=== PATIENT | male | born 1960 | race Caucasian/White ===

== ENCOUNTER → 2018-02-19 08:23 | Outpatient (CLI) | payer MEDICARE, MEDICAID, SELFPAY ==
--- NOTE | 2018-02-19 08:32 | US_ITS ---
US liver HISTORY: ITS.REASON: CIRRHOSIS ORDERING PHYSICIAN: Berto Jones PATIENT AGE: 57 years COMPARISON: 08/14/2017 FINDINGS: PANCREAS:Unremarkable. No obvious mass or abnormal fluid collection. No ductal dilatation LIVER:There is coarse echogenicity of the liver with decreased through transmission of sound consistent with fatty liver. No focal lesions are demonstrated. There is appropriate directional blood flow within a nondilated portal vein. Common bile duct is normal at 6 mm. Portal vein measures 8 mm RIGHT KIDNEY:Unremarkable. Normal size and echogenicity. No hydronephrosis Prior cholecystectomy without ductal dilatation. IMPRESSION: 1. Prior cholecystectomy without ductal dilatation. 2. No change diffuse fatty liver infiltration
== END ==
PROVIDERS: Family Provider Family Medicine; PCP Family Medicine; Visit Provider Internal Medicine
DX: K74.60 Unspecified cirrhosis of liver (principal)
CPT/HCPCS: 76705

== ENCOUNTER 2018-03-27 10:24 | Emergency (ER) | payer MEDICARE, MEDICAID, SELFPAY ==
[2018-03-27 10:27] VITALS: BP 151/85; PULSE 78; RESP 20; TEMP 37.8; O2SAT 94; BMI 38.0
[2018-03-27 10:40] VITALS: BP 151/85; PULSE 78; RESP 20; TEMP 37.7; O2SAT 94; BMI 38.0
--- NOTE | 2018-03-27 10:52 | HMH.EDUTC ---
[facility] [place] Disposition Clinical Impression: Dental abscess, Chronic dental caries extending to pulp, Non-alcoholic cirrhosis, Stage 2 chronic kidney disease, Anxiety Fever Qualifiers: Fever type: unspecified Qualified Code(s): R50.9 - Fever, unspecified Disposition: Home, Self-Care Condition on Discharge: Good Instructions: DI for Tooth Abscess, DI for Anxiety -- Adult, DI for Fever (Symptom) -- Adult Additional Instructions: Pt's neighbor was with him. Reports also a hx of Short term memory loss. All directions written and rvwd with both neighbor and pt multiple times between myself twice and also the estate planning attorney. Both pt and neighbor state a positive understanding with all questions answered. Plans to brain picker antibiotic then call Dr. Alicea's office. Start amoxicillin immediately, today. Take twice a day x 10 days Oral salt water rinses Dental balls as needed Call primary care TODAY and schedule follow up appointment to discuss dental phobia. Once that is addressed he will refer you to appropriate office. Understand that LOTS of people have dental phobias. Monitor temp. Cool compresses. Tepid baths. Follow up if getting higher or not improved with starting antibiotics. You have to use caution with both tylenol and motrin due to your past medical history. Prescriptions: Amoxicillin [Amoxicillin 875MG Tab] 875 mg PO Q12H #20 tab Referrals: López Alicea [Primary Care Provider] - (Call today and schedule follow up with primary care first due to severe dental phobia.) Time of Disposition: 11:07 Medical Decision Making - Patricio Inquiry Pt receiving controlled substance: No Vital Signs: 03/27/18 10:27 03/27/18 10:40 Temperature 100.0 F H 100 F H Temperature Source Oral Oral Pulse Rate [Left Radial] 78 78 Respiratory Rate 20 20 Blood Pressure [Right Arm] 151/85 151/85 Blood Pressure Mean [Right Arm] 107 107 Blood Pressure Source [Right Arm] Automatic Cuff Automatic Cuff Blood Pressure Position [Right Arm] Sitting Sitting 02 Sat by Pulse Oximetry 94 L 94 L Oxygen Delivery Method Room Air Orders (Tests/Meds): ED MEDICATIONS Discontinued Medications Generic Name Dose Route Start Last Admin Trade Name Freq PRN Reason Stop Dose Admin Benzocaine/Butamben/Tetracaine HCl 1 gm 03/27/18 11:10 Cetacaine [place] TP 03/27/18 11:11 ONCE ONE Lidocaine HCl 15 ml 03/27/18 11:10 Lidocaine 2% Viscous Solution 15ml Udc PO 03/27/18 11:11 ONCE ONE - Physician Consults Physician Consulted: Dr. López Alicea @ [facility] Time: 10:54 Reason -: Pt condition Comment/Response: Discussed HPI, exam (including orally but also anxiety), Dr. Shi's eval and recommendations and Dr. Alicea was already familiar with PMhx we discussed. He prefers just amoxicillin 875mg BID due to PMHx and he agrees to see him in followup to get anxiety under control then refer to most likely, oral surgeon. Would like pt to call his office today for an appointment. Discussed w/ Sandor, PHD at [facility] and he agrees, only amoxicillin initially with close follow up. [facility] [place] HPI - General Stated complaint: jaw swollen, high blood pressure Time Seen by Provider: 03/27/18 10:45 Mode of Arrival: Family Vehicle Limitations: No Limitations Description of Symptoms (Recalled from Triage Doc. by RN): c/o right sided facial swelling and fever since this am HEENT Symptoms (Recalled from RN notes): Yes Resp Symptoms (Recalled from RN notes): No Skin Symptoms (Recalled from RN notes): No MS Symptoms (Recalled from RN notes): No Functional Status (Recalled from RN notes): n/a - History of Present Illness Provider Complaint: Pt sent from ER Triage after being seen already by ER MD, Dr. Shi, due to cost. Dr. Shi called me. Dx dental abscess w/ severe dental phobia. He directed me to prescribe clindamycin 300mg QID and amoxicillin 875mg BID both x 10 days with referral to [facility]
--- NOTE | 2018-03-27 10:58 | ED_ITS ---
[facility] [place] Disposition Clinical Impression: Dental abscess, Chronic dental caries extending to pulp, Non-alcoholic cirrhosis, Stage 2 chronic kidney disease, Anxiety Fever Qualifiers: Fever type: unspecified Qualified Code(s): R50.9 - Fever, unspecified Disposition: Home, Self-Care Condition on Discharge: Good Instructions: DI for Tooth Abscess, DI for Anxiety -- Adult, DI for Fever ( Symptom) -- Adult Additional Instructions: Pt's neighbor was with him. Reports also a hx of Short term memory loss. All directions written and rvwd with both neighbor and pt multiple times between myself twice and also the detective bureau chief. Both pt and neighbor state a positive understanding with all questions answered. Plans to pick out hand antibiotic then call Dr. Alicea's office. Start amoxicillin immediately, today. Take twice a day x 10 days Oral salt water rinses Dental balls as needed Call primary care TODAY and schedule follow up appointment to discuss dental phobia. Once that is addressed he will refer you to appropriate office. Understand that LOTS of people have dental phobias. Monitor temp. Cool compresses. Tepid baths. Follow up if getting higher or not improved with starting antibiotics. You have to use caution with both tylenol and motrin due to your past medical history. Prescriptions: Amoxicillin [Amoxicillin 875MG Tab] 875 mg PO Q12H #20 tab Referrals: López Alicea [Primary Care Provider] - (Call today and schedule follow up with primary care first due to severe dental phobia.) Time of Disposition: 11:07 Medical Decision Making - Patricio Inquiry Pt receiving controlled substance: No Vital Signs: 03/27/18 10:27 03/27/18 10:40 Temperature 100.0 F H 100 F H Temperature Source Oral Oral Pulse Rate [Left Radial] 78 78 Respiratory Rate 20 20 Blood Pressure [Right Arm] 151/85 151/85 Blood Pressure Mean [Right Arm] 107 107 Blood Pressure Source [Right Arm] Automatic Cuff Automatic Cuff Blood Pressure Position [Right Arm] Sitting Sitting 02 Sat by Pulse Oximetry 94 L 94 L Oxygen Delivery Method Room Air Orders (Tests/Meds): ED MEDICATIONS Discontinued Medications Generic Name Dose Route Start Last Admin Trade Name Freq PRN Reason Stop Dose Admin Benzocaine/Butamben/Tetracaine HCl 1 gm 03/27/18 11:10 Cetacaine [place] TP 03/27/18 11:11 ONCE ONE Lidocaine HCl 15 ml 03/27/18 11:10 Lidocaine 2% Viscous Solution 15ml Udc PO 03/27/18 11:11 ONCE ONE - Physician Consults Physician Consulted: Dr. López Alicea @ [facility] Time: 10:54 Reason -: Pt condition Comment/Response: Discussed HPI, exam (including orally but also anxiety), Dr. Shi's eval and recommendations and Dr. Alicea was already familiar with PMhx we discussed. He prefers just amoxicillin 875mg BID due to PMHx and he agrees to see him in followup to get anxiety under control then refer to most likely, oral surgeon. Would like pt to call his office today for an appointment. Discussed w/ Sandor, PHD at [facility] and he agrees, only amoxicillin initially with close follow up. [facility] [place] HPI - General Stated complaint: jaw swollen, high blood pressure Time Seen by Provider: 03/27/18 10:45 Mode of Arrival: Family Vehicle Limitations: No Limitations Description of Symptoms (Recalled fr
[2018-03-27 11:20] VITALS: BP 151/85; PULSE 78; RESP 20; TEMP 37.7; O2SAT 94
== END 2018-03-27 11:21 | disposition home or self-care (01) ==
PROVIDERS: Emergency Provider Nurse Practitioner Family; Family Provider Family Medicine; PCP Family Medicine
DX: K04.7 Periapical abscess without sinus (principal); K02.9 Dental caries, unspecified; K74.60 Unspecified cirrhosis of liver; N18.2 Chronic kidney disease, stage 2 (mild); I10 Essential (primary) hypertension; R50.9 Fever, unspecified; F41.9 Anxiety disorder, unspecified
CPT/HCPCS: 99201

== ENCOUNTER → 2018-04-12 10:41 | Outpatient (POV) | payer MEDICARE, MEDICAID, SELFPAY | PROVIDERS: Visit Provider Dentist | DX: Z00.00 Encounter for general adult medical examination without abnormal findings (principal) ==

== ENCOUNTER → 2018-05-03 12:39 | Outpatient (CLI) | payer MEDICARE, MEDICAID, SELFPAY ==
[2018-05-03 12:45] LABS: Microscopic, Urine URINE MICROSCOPIC (MICROSCOPIC)
[2018-05-03 13:02] LABS: Basophils % 0.6 % (0.1-2.0); Eosinophils # 0.1 K/mm3 (0.0-0.4); Eosinophils % 1.9 % (0.1-12.0); Hematocrit 43.7 % (42.0-52.0); Hemoglobin 14.1 g/dL (14.1-18.0); Lymphocytes # 1.2 K/mm3 (0.7-4.5); Lymphocytes % 21.2 K/mm3 (10-50); Mean Corpuscular HGB Conc 32.2 g/dL (31.8-35.4); Mean Corpuscular Hemoglobin 29.1 pg (27.0-31.2); Mean Corpuscular Volume 90.3 fl (80-94); Mean Platelet Volume 8.5 fl (7.4-10.4); Monocytes # 0.3 K/mm3 (0.1-1.0); Monocytes % 5.1 % (1.7-9.3); Neutrophils % 71.3 % (37.0-80.0); Platelet Count 130 K/mm3 (142-424); Red Blood Count 4.83 M/mm3 (4.60-6.20); Red Cell Distribution Width 14.4 % (11.5-17.5); White Blood Count 5.7 K/mm3 (4.8-10.8)
[2018-05-03 13:23] LABS: Appearance,Urine CLEAR (Clear); Bilirubin,Urine Negative (Negative); Blood, Urine TRACE-L (Negative); Color,Urine YELLOW (Yellow); Glucose,Urine (UA) Negative (Negative); Ketones,Urine Negative (Negative); Leukocyte Esterase,Urine Negative (Negative); Nitrate,Urine Negative (Negative); Protein,Urine Negative (Negative); Specific Gravity, Urine <= 1.005 (1.005-1.030); Urobilinogen,Urine 0.2 EU/dl (0.2)
[2018-05-03 13:42] LABS: WBC,Urine Occasional #/hpf (0-3)
[2018-05-03 13:43] LABS: Bacteria,Urine Trace /lpf
[2018-05-03 14:01] LABS: Creatinine,Urine Random 142 mg/dL (20-320); Total Protein,Urine Random 17.3 mg/dL (0.0-11.9)
[2018-05-03 14:35] LABS: Albumin Level 3.5 gm/dL (3.4-5.0); Anion Gap 6.8 mEq/L (5-15); Blood Urea Nitrogen 13 mg/dL (7-18); Calcium 8.8 mg/dL (8.5-10.1); Carbon Dioxide 31 mmol/L (21.0-32.0); Chloride 102 mmol/L (98-107); Creatinine,Serum 1.22 mg/dL (0.70-1.30); Estimated Glomerular Filt Rate 61 ml/min (>60); GFR (African American) 74 ML/MIN (>60); Glucose 104 mg/dL (74-106); Phosphorous 3.1 mg/dL (2.4-4.9); Potassium 4.8 mmoL/L (3.5-5.1); Sodium 135 mmol/L (136-145)
[2018-05-04 18:17] LABS: Parathyroid Hormone Intact 87 pg/mL (15-65); Vitamin D 25 Hydroxy 29.3 ng/mL (30.0-100.0)
== END ==
PROVIDERS: Visit Provider Hospitalist
DX: N18.2 Chronic kidney disease, stage 2 (mild) (principal)
CPT/HCPCS: 36415; 80069; 81001; 82570; 82652; 83970; 84155; 85025

== ENCOUNTER → 2018-08-06 11:08 | Outpatient (CLI) | payer MEDICARE, MEDICAID, SELFPAY ==
[2018-08-06 11:48] LABS: Basophils % 0.4 % (0.1-2.0); Eosinophils # 0.1 K/mm3 (0.0-0.4); Eosinophils % 2.1 % (0.1-12.0); Hematocrit 44.5 % (42.0-52.0); Hemoglobin 13.7 g/dL (14.1-18.0); Lymphocytes # 0.8 K/mm3 (0.7-4.5); Lymphocytes % 19.1 K/mm3 (10-50); Mean Corpuscular HGB Conc 30.7 g/dL (31.8-35.4); Mean Corpuscular Hemoglobin 28.6 pg (27.0-31.2); Mean Corpuscular Volume 92.9 fl (80-94); Mean Platelet Volume 8.4 fl (7.4-10.4); Monocytes # 0.2 K/mm3 (0.1-1.0); Monocytes % 4.3 % (1.7-9.3); Neutrophils # 3.1 K/mm3 (1.8-7.8); Neutrophils % 74.1 % (37.0-80.0); Platelet Count 96 K/mm3 (142-424); Red Blood Count 4.79 M/mm3 (4.60-6.20); Red Cell Distribution Width 14.7 % (11.5-17.5); White Blood Count 4.2 K/mm3 (4.8-10.8)
[2018-08-06 11:53] LABS: INR 1.11 (0.9-1.1); Prothrombin Time 11.4 seconds (9.4-11.8)
[2018-08-06 14:52] LABS: Alanine Aminotransferase 28 U/L (12-78); Albumin Level 3.3 gm/dL (3.4-5.0); Albumin/Globulin Ratio 0.7 (1.1-1.8); Alkaline Phosphatase 130 U/L (46-116); Anion Gap 11.1 mEq/L (5-15); Aspartate Amino Transferase 39 U/L (15-37); Bilirubin,Total 0.7 mg/dL (0.2-1.0); Blood Urea Nitrogen 16 mg/dL (7-18); Carbon Dioxide 30 mmol/L (21.0-32.0); Chloride 101 mmol/L (98-107); Creatinine,Serum 1.21 mg/dL (0.70-1.30); Estimated Glomerular Filt Rate 62 ml/min (>60); GFR (African American) 75 ML/MIN (>60); Globulin 4.5 gm/dl (1.3-3.2); Glucose 105 mg/dL (74-106); Potassium 4.1 mmoL/L (3.5-5.1); Sodium 138 mmol/L (136-145); Total Protein,Serum 7.8 gm/dL (6.4-8.2)
[2018-08-08 12:36] LABS: AFP, Tumor Marker 6.3 ng/mL (0.0-8.3)
== END ==
PROVIDERS: PCP Family Medicine; Visit Provider Nurse Practitioner
DX: K74.60 Unspecified cirrhosis of liver (principal)
CPT/HCPCS: 36415; 80053; 82105; 85025; 85610

== ENCOUNTER → 2018-10-08 07:36 | Outpatient (CLI) | payer MEDICARE, MEDICAID, SELFPAY ==
--- NOTE | 2018-10-08 08:00 | US_ITS ---
US liver HISTORY: ] Quadrant pain. ITS.REASON: CIRRHOSIS 4 years ORDERING PHYSICIAN: Yumiko Richard PATIENT AGE: 57 years FINDINGS: PANCREAS:Unremarkable. No obvious mass or abnormal fluid collection. No ductal dilatation LIVER:There is coarse echogenicity of the liver with decreased throughtransmission.. Appearance compatible with cirrhosis. No focal lesions. Portal vein normal caliber. Normal direction flow. Portal vein 8.5 mm. Common duct normal diameter measuring less than 5 mm at hilum of liver. No ascites evident. RIGHT KIDNEY. No hydronephrosis nor mass. .. Right kidney Normal size 11.2 cm length. Borderline cortical thinning no fluid at Morison pouch. . Gallbladder-surgically removed Prior cholecystectomy without ductal dilatation. IMPRESSION: 1. Coarse echogenicity throughout liver compatible with history of cirrhosis . No focal lesions at liver.. Portal vein normal caliber and normal direction flow. 2. Common duct normal. Previous cholecystectomy. With no ductal dilatation
== END ==
PROVIDERS: PCP Family Medicine; Visit Provider Nurse Practitioner
DX: K74.60 Unspecified cirrhosis of liver (principal)
CPT/HCPCS: 76705

== ENCOUNTER → 2018-10-16 12:52 | Outpatient (CLI) | payer MEDICARE, MEDICAID, SELFPAY ==
[2018-10-16 12:59] LABS: Microscopic, Urine URINE MICROSCOPIC (MICROSCOPIC)
[2018-10-16 13:36] LABS: Appearance,Urine CLEAR (Clear); Bilirubin,Urine Negative (Negative); Blood, Urine TRACE-I (Negative); Color,Urine YELLOW (Yellow); Glucose,Urine (UA) Negative (Negative); Ketones,Urine Negative (Negative); Leukocyte Esterase,Urine Negative (Negative); Nitrate,Urine Negative (Negative); Protein,Urine Negative (Negative); Specific Gravity, Urine 1.015 (1.005-1.030); Urobilinogen,Urine 0.2 EU/dl (0.2)
[2018-10-16 13:56] LABS: Bacteria,Urine 1+ /lpf
[2018-10-16 14:33] LABS: Albumin Level 3.3 gm/dL (3.4-5.0); Blood Urea Nitrogen 11 mg/dL (7-18); Calcium 8.6 mg/dL (8.5-10.1); Carbon Dioxide 31 mmol/L (21.0-32.0); Chloride 101 mmol/L (98-107); Creatinine,Serum 1.26 mg/dL (0.70-1.30); Estimated Glomerular Filt Rate 59 ml/min (>60); GFR (African American) 72 ML/MIN (>60); Glucose 96 mg/dL (74-106); Phosphorous 2.8 mg/dL (2.4-4.9); Sodium 139 mmol/L (136-145); Uric Acid 4.7 mg/dL (2.6-7.2)
[2018-10-16 15:09] LABS: Basophils % 0.2 % (0.1-2.0); Eosinophils # 0.1 K/mm3 (0.0-0.4); Eosinophils % 2.2 % (0.1-12.0); Hematocrit 46.8 % (42.0-52.0); Hemoglobin 14.6 g/dL (14.1-18.0); Lymphocytes % 22.9 % (10-50); Mean Corpuscular HGB Conc 31.3 g/dL (31.8-35.4); Mean Corpuscular Hemoglobin 29.1 pg (27.0-31.2); Mean Corpuscular Volume 92.8 fl (80-94); Mean Platelet Volume 8.5 fl (7.4-10.4); Monocytes # 0.3 K/mm3 (0.1-1.0); Monocytes % 6.3 % (1.7-9.3); Neutrophils # 3.1 K/mm3 (1.8-7.8); Neutrophils % 68.3 % (37.0-80.0); Platelet Count 89 K/mm3 (142-424); Red Blood Count 5.04 M/mm3 (4.60-6.20); Red Cell Distribution Width 14.9 % (11.5-17.5); White Blood Count 4.5 K/mm3 (4.8-10.8)
== END ==
PROVIDERS: Visit Provider Internal Medicine Nephrology
DX: N18.2 Chronic kidney disease, stage 2 (mild) (principal)
CPT/HCPCS: 36415; 80069; 81001; 84550; 85025

== ENCOUNTER → 2019-03-11 10:16 | Outpatient (CLI) | payer MEDICARE, MEDICAID, SELFPAY ==
[2019-03-11 10:43] LABS: Basophils % 0.6 % (0.1-2.0); Eosinophils # 0.1 K/mm3 (0.0-0.4); Eosinophils % 1.9 % (0.1-12.0); Hematocrit 46.1 % (42.0-52.0); Hemoglobin 15.3 g/dL (14.1-18.0); Lymphocytes # 1.2 K/mm3 (0.7-4.5); Mean Corpuscular HGB Conc 33.1 g/dL (31.8-35.4); Mean Corpuscular Hemoglobin 29.6 pg (27.0-31.2); Mean Corpuscular Volume 89.4 fl (80-94); Mean Platelet Volume 9.4 fl (7.4-10.4); Monocytes # 0.4 K/mm3 (0.1-1.0); Neutrophils # 3.3 K/mm3 (1.8-7.8); Neutrophils % 66.5 % (37.0-80.0); Platelet Count 89 K/mm3 (142-424); Red Blood Count 5.16 M/mm3 (4.60-6.20); Red Cell Distribution Width 14.4 % (11.5-17.5)
[2019-03-11 14:07] LABS: INR 1.12 (0.9-1.1); Prothrombin Time 11.6 seconds (9.4-11.8)
[2019-03-11 14:23] LABS: Alanine Aminotransferase 31 U/L (12-78); Albumin Level 3.7 gm/dL (3.4-5.0); Albumin/Globulin Ratio 0.9 (1.1-1.8); Alkaline Phosphatase 93 U/L (46-116); Anion Gap 16.3 mEq/L (5-15); Aspartate Amino Transferase 43 U/L (15-37); Blood Urea Nitrogen 16 mg/dL (7-18); Carbon Dioxide 27 mmol/L (21.0-32.0); Chloride 100 mmol/L (98-107); Creatinine,Serum 1.31 mg/dL (0.70-1.30); Estimated Glomerular Filt Rate 56 ml/min (>60); GFR (African American) 68 ML/MIN (>60); Globulin 3.9 gm/dl (1.3-3.2); Glucose 93 mg/dL (74-106); Potassium 4.3 mmoL/L (3.5-5.1); Sodium 139 mmol/L (136-145); Total Protein,Serum 7.6 gm/dL (6.4-8.2)
[2019-03-12 19:55] LABS: AFP, Tumor Marker 6.4 ng/mL (0.0-8.3)
== END ==
PROVIDERS: Visit Provider Nurse Practitioner
DX: K74.60 Unspecified cirrhosis of liver (principal)
CPT/HCPCS: 36415; 80053; 82105; 85025; 85610

== ENCOUNTER → 2019-04-08 08:23 | Outpatient (CLI) | payer MEDICARE, MEDICAID, SELFPAY ==
--- NOTE | 2019-04-08 09:00 | US_ITS ---
US liver HISTORY: ITS.REASON: CIRRHOSIS ORDERING PHYSICIAN: Berto Jones PATIENT AGE: 58 years COMPARISON: 10/08/2018 FINDINGS: PANCREAS:Unremarkable. No obvious mass or abnormal fluid collection. No ductal dilatation LIVER:There is somewhat heterogeneous echogenicity of the liver. No focal liver lesions are evident. There has been a prior cholecystectomy. There is appropriate direction of blood flow within a nondilated portal vein. Common bile duct is normal in caliber. RIGHT KIDNEY:Unremarkable. Normal size and echogenicity. No hydronephrosis IMPRESSION: 1. Post cholecystectomy. 2. Heterogeneous echogenicity of the liver not significant changed
== END ==
PROVIDERS: PCP Family Medicine; Visit Provider Internal Medicine
DX: K74.60 Unspecified cirrhosis of liver (principal)
CPT/HCPCS: 76705

== ENCOUNTER → 2019-04-16 09:58 | Outpatient (CLI) | payer MEDICARE, MEDICAID, SELFPAY ==
[2019-04-16 10:04] LABS: Microscopic, Urine URINE MICROSCOPIC (MICROSCOPIC)
[2019-04-16 11:06] LABS: Appearance,Urine CLEAR (Clear); Blood, Urine Negative (Negative); Color,Urine YELLOW (Yellow); Glucose,Urine (UA) Negative (Negative); Ketones,Urine TRACE (Negative); Leukocyte Esterase,Urine Negative (Negative); Nitrate,Urine Negative (Negative); Protein,Urine 1+ (Negative); Specific Gravity, Urine 1.025 (1.005-1.030)
[2019-04-16 11:16] LABS: Bilirubin,Urine 1+ (Negative)
[2019-04-16 11:27] LABS: RBC,Urine Occasional #/hpf (0-3)
[2019-04-16 11:28] LABS: Bacteria,Urine 1+ /lpf; Mucus,Urine Trace /lpf
[2019-04-16 12:12] LABS: Albumin Level 3.7 gm/dL (3.4-5.0); Anion Gap 13.9 mEq/L (5-15); Blood Urea Nitrogen 13 mg/dL (7-18); Calcium 9.2 mg/dL (8.5-10.1); Carbon Dioxide 30 mmol/L (21.0-32.0); Chloride 101 mmol/L (98-107); Creatinine,Serum 1.48 mg/dL (0.70-1.30); Estimated Glomerular Filt Rate 49 ml/min (>60); GFR (African American) 59 ML/MIN (>60); Glucose 89 mg/dL (74-106); Phosphorous 2.7 mg/dL (2.4-4.9); Potassium 4.9 mmoL/L (3.5-5.1); Sodium 140 mmol/L (136-145); Uric Acid 5.4 mg/dL (2.6-7.2)
== END ==
PROVIDERS: Visit Provider Internal Medicine Nephrology
DX: N18.2 Chronic kidney disease, stage 2 (mild) (principal); M10.9 Gout, unspecified
CPT/HCPCS: 36415; 80069; 81001; 84550

== ENCOUNTER → 2019-08-02 13:57 | Outpatient (CLI) | payer MEDICARE, MEDICAID, SELFPAY ==
[2019-08-02 15:42] LABS: Alanine Aminotransferase 20 U/L (12-78); Albumin Level 3.8 gm/dL (3.4-5.0); Alkaline Phosphatase 111 U/L (46-116); Anion Gap 9.8 mEq/L (5-15); Aspartate Amino Transferase 36 U/L (15-37); Bilirubin,Total 0.7 mg/dL (0.2-1.0); Blood Urea Nitrogen 18 mg/dL (7-18); Carbon Dioxide 31 mmol/L (21.0-32.0); Chloride 101 mmol/L (98-107); Creatinine,Serum 1.51 mg/dL (0.70-1.30); Estimated Glomerular Filt Rate 48 ml/min (>60); GFR (African American) 58 ML/MIN (>60); Globulin 3.8 gm/dl (1.3-3.2); Glucose 79 mg/dL (74-106); Potassium 4.8 mmoL/L (3.5-5.1); Sodium 137 mmol/L (136-145); Total Protein,Serum 7.6 gm/dL (6.4-8.2)
== END ==
PROVIDERS: Visit Provider Family Medicine
DX: E87.5 Hyperkalemia (principal)
CPT/HCPCS: 36415; 80053

== ENCOUNTER → 2019-08-20 10:49 | Outpatient (CLI) | payer MEDICARE, MEDICAID, SELFPAY ==
[2019-08-20 11:48] LABS: INR 1.12 (0.9-1.1); Prothrombin Time 11.6 seconds (9.4-11.8)
[2019-08-20 11:57] LABS: Basophils % 0.4 % (0.1-2.0); Hemoglobin 14.4 g/dL (14.1-18.0); Lymphocytes # 1.1 K/mm3 (0.7-4.5); Lymphocytes % 29.1 % (10-50); Mean Corpuscular HGB Conc 32.7 g/dL (31.8-35.4); Mean Corpuscular Hemoglobin 30.9 pg (27.0-31.2); Mean Corpuscular Volume 94.4 fl (80-94); Monocytes # 0.2 K/mm3 (0.1-1.0); Monocytes % 6.1 % (1.7-9.3); Neutrophils # 2.3 K/mm3 (1.8-7.8); Neutrophils % 63.3 % (37.0-80.0); Platelet Count 82 K/mm3 (142-424); Red Blood Count 4.66 M/mm3 (4.60-6.20); Red Cell Distribution Width 13.7 % (11.5-17.5); White Blood Count 3.6 K/mm3 (4.8-10.8)
[2019-08-20 16:00] LABS: Alanine Aminotransferase 21 U/L (12-78); Albumin Level 3.6 gm/dL (3.4-5.0); Albumin/Globulin Ratio 0.9 (1.1-1.8); Alkaline Phosphatase 113 U/L (46-116); Anion Gap 11.5 mEq/L (5-15); Aspartate Amino Transferase 49 U/L (15-37); Bilirubin,Total 0.6 mg/dL (0.2-1.0); Blood Urea Nitrogen 15 mg/dL (7-18); Calcium 9.1 mg/dL (8.5-10.1); Carbon Dioxide 28 mmol/L (21.0-32.0); Chloride 102 mmol/L (98-107); Creatinine,Serum 1.53 mg/dL (0.70-1.30); Estimated Glomerular Filt Rate 47 ml/min (>60); GFR (African American) 57 ML/MIN (>60); Globulin 3.8 gm/dl (1.3-3.2); Glucose 93 mg/dL (74-106); Potassium 4.5 mmoL/L (3.5-5.1); Sodium 137 mmol/L (136-145); Total Protein,Serum 7.4 gm/dL (6.4-8.2)
[2019-08-21 10:25] LABS: AFP, Tumor Marker 4.9 ng/mL (0.0-8.3); Hepatitis B Surf Ab Quant <3.1 mIU/mL (Immunity>9.9)
== END ==
PROVIDERS: Visit Provider Physician Assistant
DX: K74.60 Unspecified cirrhosis of liver (principal)
CPT/HCPCS: 36415; 80053; 82105; 85025; 85610; 86706

== ENCOUNTER → 2019-10-15 07:39 | Outpatient (CLI) | payer MEDICARE, MEDICAID, SELFPAY ==
--- NOTE | 2019-10-15 07:42 | US_ITS ---
PROCEDURE: US LIVER CLINICAL INDICATION: CIRRHOSIS Follow-up cirrhosis COMPARISON: LIVER US liver from 04/08/2019 FINDINGS: PANCREAS: Poorly demonstrated due to overlying bowel gas. LIVER: There is diffuse heterogeneous echogenicity of the liver with somewhat irregular margin consistent with cirrhosis. There is appropriate direction of blood flow within a non dilated portal vein. Common bile duct is normal. No space-occupying lesions are demonstrated. RIGHT KIDNEY: There is some thinning of the right renal cortex. GALLBLADDER: Prior cholecystectomy. IMPRESSION: Cirrhotic appearing liver overall not significantly changed Dictated by: Colton Sahni MD 10/16/2019 11:40 Electronically signed by Colton Sahni MD in [place] 10/16/2019 11:40
== END ==
PROVIDERS: PCP Family Medicine; Visit Provider Nurse Practitioner
DX: K74.60 Unspecified cirrhosis of liver (principal)
CPT/HCPCS: 76705

== ENCOUNTER → 2019-12-04 09:02 | Outpatient (CLI) | payer MEDICARE, MEDICAID, SELFPAY ==
[2019-12-04 09:08] LABS: Microscopic, Urine URINE MICROSCOPIC (MICROSCOPIC)
[2019-12-04 10:03] LABS: Appearance,Urine CLEAR (Clear); Blood, Urine Negative (Negative); Color,Urine YELLOW (Yellow); Glucose,Urine (UA) Negative (Negative); Ketones,Urine TRACE (Negative); Leukocyte Esterase,Urine Negative (Negative); Nitrate,Urine Negative (Negative); PH,Urine 5.5 (5.0-8.5); Protein,Urine Negative (Negative); Specific Gravity, Urine 1.025 (1.005-1.030)
[2019-12-04 10:27] LABS: Bilirubin,Urine Negative (Negative)
[2019-12-04 10:29] LABS: Amorphous Sediment,Urine 2+ /lpf; RBC,Urine Occasional #/hpf (0-3); Sperm,Urine OCC /lpf; WBC,Urine Occasional #/hpf (0-3)
[2019-12-04 10:53] LABS: Albumin Level 4.1 g/dl (3.5-5.0); Chloride 101 mmol/L (98-107); Potassium 4.4 mmoL/L (3.5-5.1); Sodium 139 mmol/L (136-145)
[2019-12-04 10:55] LABS: Blood Urea Nitrogen 20 mg/dl (9-20); Estimated Glomerular Filt Rate 45 ml/min (>60); GFR (African American) 54 ML/MIN (>60)
[2019-12-04 10:56] LABS: Anion Gap 13.4 mEq/L (5-15); Calcium 9.2 mg/dl (8.4-10.2); Carbon Dioxide 29 mmol/L (22.0-30.0); Glucose 102 mg/dl (74-100); Phosphorous 2.9 mg/dl (2.5-4.5)
== END ==
PROVIDERS: Visit Provider Internal Medicine Nephrology
DX: N18.2 Chronic kidney disease, stage 2 (mild) (principal); M10.9 Gout, unspecified
CPT/HCPCS: 36415; 80069; 81001; 84550

== ENCOUNTER → 2020-06-10 09:57 | Outpatient (CLI) | payer MEDICARE, MEDICAID, SELFPAY ==
[2020-06-10 10:03] LABS: Microscopic, Urine URINE MICROSCOPIC (MICROSCOPIC)
[2020-06-10 11:12] LABS: Appearance,Urine CLEAR (Clear); Blood, Urine Negative (Negative); Color,Urine AMBER (Yellow); Glucose,Urine (UA) Negative (Negative); Ketones,Urine TRACE (Negative); Leukocyte Esterase,Urine Negative (Negative); Nitrate,Urine POSITIVE (Negative); PH,Urine 5.5 (5.0-8.5); Protein,Urine TRACE (Negative); Specific Gravity, Urine 1.025 (1.005-1.030)
[2020-06-10 11:17] LABS: Basophils % 0.5 % (0.1-2.0); Bilirubin,Urine Negative (Negative); Eosinophils # 0.1 K/mm3 (0.0-0.4); Eosinophils % 1.3 % (0.1-12.0); Hematocrit 42.9 % (42.0-52.0); Hemoglobin 14.7 g/dL (14.1-18.0); Lymphocytes # 1.1 K/mm3 (0.7-4.5); Lymphocytes % 26.9 % (10-50); Mean Corpuscular HGB Conc 34.3 g/dL (31.8-35.4); Mean Corpuscular Hemoglobin 31.8 pg (27.0-31.2); Mean Corpuscular Volume 92.7 fl (80-94); Mean Platelet Volume 9.2 fl (7.4-10.4); Monocytes # 0.2 K/mm3 (0.1-1.0); Monocytes % 5.2 % (1.7-9.3); Neutrophils # 2.8 K/mm3 (1.8-7.8); Platelet Count 92 K/mm3 (142-424); Red Blood Count 4.63 M/mm3 (4.60-6.20); White Blood Count 4.2 K/mm3 (4.8-10.8)
[2020-06-10 11:24] LABS: Albumin Level 4.3 g/dl (3.5-5.0); Chloride 98 mmol/L (98-107); Potassium 4.5 mmoL/L (3.5-5.1); Sodium 138 mmol/L (136-145)
[2020-06-10 11:25] LABS: Chloride 98 mmol/L (98-107); Potassium 4.4 mmoL/L (3.5-5.1); Sodium 138 mmol/L (136-145)
[2020-06-10 11:27] LABS: INR 1.18 (0.9-1.1); Prothrombin Time 12.1 seconds (9.4-11.8)
[2020-06-10 11:27] LABS: Anion Gap 14.5 mEq/L (5-15); Blood Urea Nitrogen 15 mg/dl (9-20); Carbon Dioxide 30 mmol/L (22.0-30.0); Estimated Glomerular Filt Rate 48 ml/min (>60); GFR (African American) 58 ML/MIN (>60)
[2020-06-10 11:28] LABS: Calcium 9.5 mg/dl (8.4-10.2); Glucose 98 mg/dl (74-100); Phosphorous 3.4 mg/dl (2.5-4.5)
[2020-06-10 11:28] LABS: Alanine Aminotransferase 13 U/L (12-78); Albumin Level 4.3 g/dl (3.5-5.0); Albumin/Globulin Ratio 1.2 (1.1-1.8); Alkaline Phosphatase 85 U/L (38-126); Anion Gap 14.4 mEq/L (5-15); Aspartate Amino Transferase 31 U/L (17-59); Blood Urea Nitrogen 15 mg/dl (9-20); Calcium 9.5 mg/dl (8.4-10.2); Carbon Dioxide 30 mmol/L (22.0-30.0); Estimated Glomerular Filt Rate 48 ml/min (>60); GFR (African American) 58 ML/MIN (>60); Globulin 3.5 g/dL (1.3-3.2); Glucose 99 mg/dl (74-100); Total Protein,Serum 7.8 g/dl (6.3-8.2)
[2020-06-10 11:38] LABS: Creatinine,Urine Random 437 mg/dL (Not Estab.)
[2020-06-10 11:46] LABS: Bacteria,Urine 2+ /lpf; Mucus,Urine 1+ /lpf
[2020-06-11 11:51] LABS: AFP, Tumor Marker 5.9 ng/mL (0.0-8.3)
== END ==
PROVIDERS: PCP Nurse Practitioner; Visit Provider Student in an Organized Health Care Education/Training Program
DX: K74.60 Unspecified cirrhosis of liver (principal); R82.90 Unspecified abnormal findings in urine
CPT/HCPCS: 36415; 80053; 80069; 81001; 82105; 82570; 84155; 85025; 85610; 87086

== ENCOUNTER → 2020-06-22 09:07 | Outpatient (CLI) | payer MEDICARE, MEDICAID, SELFPAY ==
--- NOTE | 2020-06-22 09:12 | US_ITS ---
PROCEDURE: US ABDOMEN COMPLETE CLINICAL INDICATION: CIRRHOSIS OF LIVER COMPARISON: US RUQ US RUQ-(ABD LTD)1ORGAN/QUAD/FU from 08/14/2017 FINDINGS: PANCREAS: Pancreas is not well delineated due to overlying bowel gas. CT or MRI without and with contrast with pancreatic protocol may provide further evaluation if clinically desired. LIVER: There is overall decreased echogenicity of the liver. No hepatic masses or biliary dilatation is evident. The portal vein is not well delineated. There is appropriate direction of blood flow within the segmental portal veins. RIGHT KIDNEY: Cortical thinning. No hydronephrosis LEFT KIDNEY: Cortical thinning, no hydronephrosis GALLBLADDER: Prior cholecystectomy. Common bile duct is normal at 2 mm. AORTA: No evidence of aneurysmal dilatation. SPLEEN: Splenomegaly at 15 cm. ASCITES: None demonstrated. IMPRESSION: Overall decreased echogenicity of the liver nonspecific but could be seen with hepatitis. Splenomegaly. Prior cholecystectomy with normal common bile duct. Dictated by: Colton Sahni MD 06/22/2020 18:23 Colton Sahni MD in [place] 06/24/2020 13:33
== END ==
PROVIDERS: PCP Family Medicine; Visit Provider Internal Medicine
DX: K74.60 Unspecified cirrhosis of liver (principal)
CPT/HCPCS: 76700

== ENCOUNTER → 2020-06-30 10:09 | Outpatient (POV) | payer MEDICARE, MEDICAID, SELFPAY | PROVIDERS: Visit Provider Dermatology | DX: Z00.00 Encounter for general adult medical examination without abnormal findings (principal) ==

== ENCOUNTER → 2020-11-04 09:33 | Outpatient (CLI) | payer MEDICARE, MEDICAID, SELFPAY ==
[2020-11-04 09:48] LABS: Microscopic, Urine URINE MICROSCOPIC (MICROSCOPIC)
[2020-11-04 10:25] LABS: Basophils % 0.6 % (0.1-2.0); Eosinophils # 0.1 K/mm3 (0.0-0.4); Eosinophils % 1.3 % (0.1-12.0); Hematocrit 49.9 % (42.0-52.0); Hemoglobin 16.1 g/dL (14.1-18.0); Lymphocytes # 1.3 K/mm3 (0.7-4.5); Lymphocytes % 23.5 % (10-50); Mean Corpuscular HGB Conc 32.3 g/dL (31.8-35.4); Mean Corpuscular Hemoglobin 30.4 pg (27.0-31.2); Mean Platelet Volume 9.1 fl (7.4-10.4); Monocytes # 0.3 K/mm3 (0.1-1.0); Monocytes % 4.7 % (1.7-9.3); Neutrophils % 69.9 % (37.0-80.0); Platelet Count 117 K/mm3 (142-424); Red Blood Count 5.31 M/mm3 (4.60-6.20); Red Cell Distribution Width 14.5 % (11.5-17.5); White Blood Count 5.7 K/mm3 (4.8-10.8)
[2020-11-04 10:38] LABS: Appearance,Urine CLEAR (Clear); Bilirubin,Urine 2+ (Negative); Blood, Urine TRACE-L (Negative); Color,Urine YELLOW (Yellow); Glucose,Urine (UA) TRACE (Negative); Ketones,Urine TRACE (Negative); Leukocyte Esterase,Urine Negative (Negative); Nitrate,Urine POSITIVE (Negative); Protein,Urine 1+ (Negative); Specific Gravity, Urine >= 1.030 (1.005-1.030)
[2020-11-04 10:42] LABS: Squamous Epithelial Cell,Urine Occasional #/hpf (0-5)
[2020-11-04 10:56] LABS: Chloride 100 mmol/L (98-107)
[2020-11-04 10:57] LABS: Potassium 4.1 mmoL/L (3.5-5.1); Sodium 140 mmol/L (136-145)
[2020-11-04 10:59] LABS: Anion Gap 11.1 mEq/L (5-15); Blood Urea Nitrogen 21 mg/dl (9-20); Carbon Dioxide 33 mmol/L (22.0-30.0); Estimated Glomerular Filt Rate 48 ml/min (>60); GFR (African American) 58 ML/MIN (>60); Iron 106 ug/dL (49-181)
[2020-11-04 11:00] LABS: Calcium 10.4 mg/dl (8.4-10.2); Glucose 99 mg/dl (74-100); Phosphorous 3.6 mg/dl (2.5-4.5)
[2020-11-04 11:32] LABS: Ferritin 77.4 ng/ml (17.9-464)
[2020-11-04 11:36] LABS: Total Iron Binding Capacity 416 ug/dL (261-462)
[2020-11-04 11:43] LABS: Uric Acid 4.7 mg/dl (3.5-8.5)
[2020-11-04 13:11] LABS: Creatinine,Urine Random 8 mg/dL (Not Estab.)
[2020-11-09 19:25] LABS: 1,25 Dihydroxy Vitamin D 52 pg/mL (.); 1,25-Dihydroxy, Vitamin D-2 12 pg/mL (.); 1,25-Dihydroxy, Vitamin D-3 40 pg/mL (.)
== END ==
PROVIDERS: Visit Provider Student in an Organized Health Care Education/Training Program
DX: N18.30 Chronic kidney disease, stage 3 unspecified (principal); K74.60 Unspecified cirrhosis of liver; R82.90 Unspecified abnormal findings in urine
CPT/HCPCS: 36415; 80069; 81001; 82570; 82652; 82728; 83540; 83550; 84155; 84550; 85025

== ENCOUNTER → 2021-05-05 08:07 | Outpatient (CLI) | payer MEDICARE, MEDICAID, SELFPAY ==
[2021-05-05 08:12] LABS: Microscopic, Urine URINE MICROSCOPIC (MICROSCOPIC)
[2021-05-05 08:57] LABS: Appearance,Urine CLEAR (Clear); Basophils % 0.9 % (0.1-2.0); Blood, Urine Negative (Negative); Color,Urine AMBER (Yellow); Eosinophils # 0.1 K/mm3 (0.0-0.4); Eosinophils % 2.3 % (0.1-12.0); Glucose,Urine (UA) Negative (Negative); Hematocrit 45.7 % (42.0-52.0); Hemoglobin 15.4 g/dL (14.1-18.0); Ketones,Urine TRACE (Negative); Leukocyte Esterase,Urine Negative (Negative); Lymphocytes # 1.2 K/mm3 (0.7-4.5); Lymphocytes % 24.8 % (10-50); Mean Corpuscular HGB Conc 33.8 g/dL (31.8-35.4); Mean Corpuscular Hemoglobin 31.3 pg (27.0-31.2); Mean Corpuscular Volume 92.6 fl (80-94); Mean Platelet Volume 8.9 fl (7.4-10.4); Monocytes # 0.3 K/mm3 (0.1-1.0); Monocytes % 5.6 % (1.7-9.3); Neutrophils # 3.2 K/mm3 (1.8-7.8); Neutrophils % 66.3 % (37.0-80.0); Nitrate,Urine Negative (Negative); PH,Urine 5.5 (5.0-8.5); Platelet Count 89 K/mm3 (142-424); Protein,Urine Negative (Negative); Red Blood Count 4.94 M/mm3 (4.60-6.20); Red Cell Distribution Width 14.3 % (11.5-17.5); Specific Gravity, Urine >= 1.030 (1.005-1.030); White Blood Count 4.9 K/mm3 (4.8-10.8)
[2021-05-05 09:01] LABS: Bilirubin,Urine 1+ (Negative)
[2021-05-05 09:02] LABS: Squamous Epithelial Cell,Urine Occasional #/hpf (0-5); WBC,Urine Occasional #/hpf (0-3)
[2021-05-05 09:18] LABS: Chloride 99 mmol/L (98-107)
[2021-05-05 09:19] LABS: Albumin Level 4.6 g/dl (3.5-5.0); Potassium 4.8 mmoL/L (3.5-5.1); Sodium 141 mmol/L (136-145)
[2021-05-05 09:21] LABS: Blood Urea Nitrogen 14 mg/dl (9-20); Estimated Glomerular Filt Rate 57 ml/min (>60); GFR (African American) 68 ML/MIN (>60)
[2021-05-05 09:22] LABS: Anion Gap 13.8 mEq/L (5-15); Calcium 9.6 mg/dl (8.4-10.2); Carbon Dioxide 33 mmol/L (22.0-30.0); Glucose 93 mg/dl (74-100); Phosphorous 3.3 mg/dl (2.5-4.5)
[2021-05-05 09:31] LABS: Creatinine,Urine Random 401 mg/dL (Not Estab.)
[2021-05-05 09:57] LABS: Ferritin 116 ng/ml (17.9-464)
[2021-05-05 13:28] LABS: Intact Parathyroid Hormone 116.6 pg/mL (7.5-53.5)
== END ==
PROVIDERS: Visit Provider Student in an Organized Health Care Education/Training Program
DX: N18.30 Chronic kidney disease, stage 3 unspecified (principal); K74.60 Unspecified cirrhosis of liver
CPT/HCPCS: 36415; 80069; 81001; 82306; 82570; 82728; 83970; 84155; 85025

== ENCOUNTER → 2021-05-14 08:44 | Outpatient (CLI) | payer MEDICARE, MEDICAID, SELFPAY ==
[2021-05-14 09:47] LABS: Prothrombin Time 11.9 seconds (10.1-12.5)
[2021-05-14 09:49] LABS: Hematocrit 44.4 % (42.0-52.0); Hemoglobin 15.1 g/dL (14.1-18.0); Mean Corpuscular HGB Conc 34.1 g/dL (31.8-35.4); Mean Corpuscular Hemoglobin 31.1 pg (27.0-31.2); Mean Corpuscular Volume 91.3 fl (80-94); Platelet Count 79 K/mm3 (142-424); Red Blood Count 4.86 M/mm3 (4.60-6.20); Red Cell Distribution Width 14.5 % (11.5-17.5)
[2021-05-14 09:50] LABS: INR 1.01 (0.9-1.1)
[2021-05-14 12:00] LABS: Alanine Aminotransferase 16 U/L (12-78); Albumin Level 4.5 g/dl (3.5-5.0); Albumin/Globulin Ratio 1.3 (1.1-1.8); Alkaline Phosphatase 104 U/L (38-126); Anion Gap 13.3 mEq/L (5-15); Aspartate Amino Transferase 38 U/L (17-59); Blood Urea Nitrogen 12 mg/dl (9-20); Calcium 9.2 mg/dl (8.4-10.2); Carbon Dioxide 32 mmol/L (22.0-30.0); Chloride 101 mmol/L (98-107); Estimated Glomerular Filt Rate 62 ml/min (>60); GFR (African American) 75 ML/MIN (>60); Globulin 3.5 g/dL (1.3-3.2); Glucose 94 mg/dl (74-100); Potassium 4.3 mmoL/L (3.5-5.1); Sodium 142 mmol/L (136-145)
[2021-05-15 08:13] LABS: AFP, Tumor Marker 5.1 ng/mL (0.0-8.3)
== END ==
PROVIDERS: Visit Provider Nurse Practitioner
DX: K74.60 Unspecified cirrhosis of liver (principal)
CPT/HCPCS: 36415; 80053; 82105; 85014; 85018; 85048; 85049; 85610

== ENCOUNTER 2021-06-16 09:02 | Emergency (ER) | payer MEDICARE, MEDICAID, SELFPAY ==
[2021-06-16 09:20] VITALS: BP 133/79; PULSE 66; RESP 16; TEMP 36.9; O2SAT 97; BMI 38.7
--- NOTE | 2021-06-16 09:29 | XR_ITS ---
PROCEDURE: XR LUMBAR SPINE 2-3V CLINICAL INDICATION: fall COMPARISON: No exams were available for comparison FINDINGS: Multilevel degenerative disc disease is present from L1-S1. No acute fracture or dislocation is evident. Marginal osteophytes are present laterally at L1-L2 and L3. IMPRESSION: Degenerative changes, no acute finding. Dictated by: Colton Sahni MD 06/16/2021 10:25 Colton Sahni MD in [place] 06/16/2021 10:25
--- NOTE | 2021-06-16 09:29 | XR_ITS ---
PROCEDURE: XR HIP LT 2-3V W/PELVIS CLINICAL INDICATION: fall COMPARISON: No exams were available for comparison FINDINGS: Mild osteoarthritic changes are present involving both hips. No acute fracture or dislocation. No lytic or blastic change. IMPRESSION: No acute findings. Dictated by: Colton Sahni MD 06/16/2021 10:37 Colton Sahni MD in [place] 06/16/2021 10:37
--- NOTE | 2021-06-16 09:47 | HMH.EDUTC ---
[facility] [place] Dis[place] Clinical Impression: Low back pain Qualifiers: Chronicity: unspecified Back pain laterality: left Sciatica presence: unspecified whether sciatica present Qualified Code(s): M54.5 - Low back pain Disposition: Home, Self-Care Condition on Discharge: Good Instructions: Managing Chronic Low Back Pain, DI for Low Back Pain, Low Back Pain, DI for Hip Pain, Help for Hip Pain Additional Instructions: Take you pain medications and Muscle Relaxers as prescribed to help with pain *Ice 20 minutes every 2 hours for the first 48 hours after the initial injury followed by moist heat every 20 minutes 3-4 times a day to affected area *Muscle relaxer as prescribed as needed for muscle spasms but remember, it WILL cause drowsiness You cannot take it and drive, operate machinery or care for small children. *Keep this area active, no movement leads to more stiffness, However take it easy and avoid heavy lifting pushing or pulling *Follow up with you family doctor if no improvement for further treatment and testing Return if needed Straight to ER if any life threatening symptoms Referrals: López Alicea [Primary Care Provider] - As needed Time of Disposition: 10:42 Medical Decision Making - Patricio Inquiry Pt receiving controlled substance: No Patricio was queried for this patient: No Vital Signs: 06/16/21 09:20 Temperature 98.5 F Temperature Source Oral Pulse Rate [Left] 66 Respiratory Rate 16 Blood Pressure [Right Arm] 133/79 Blood Pressure Mean [Right Arm] 97 02 Sat by Pulse Oximetry 97 Orders (Tests/Meds): ORDERS Category Date Time Status XR hip LT 2-3V w/pelvis Stat Exams 06/16/21 09:29 Taken - Radiology Data #1 Image(s): L-Spine Image Reviewed: Yes I have reviewed radiologist's interpretation Degenerative changes, no acute finding. #2 Image(s): Hip Image Reviewed: Yes I have reviewed radiologist's interpretation No acute findings [facility] [place] HPI - General Stated complaint: AO fall 06/03 worsening back pain Time Seen by Provider: 06/16/21 09:47 Mode of Arrival: Ambulatory Source of Information: Patient Limitations: No Limitations Description of Symptoms (Recalled from Triage Doc. by RN): pt tripped and fell yesterday and twisted his back. pt c/o lower L back pain and that the top of that hip is a little sore. HEENT Symptoms (Recalled from RN notes): No Resp Symptoms (Recalled from RN notes): No Skin Symptoms (Recalled from RN notes): No MS Symptoms (Recalled from RN notes): Yes (L lower back pain that radiates to the top of his hip) Functional Status (Recalled from RN notes): na - History of Present Illness Provider Complaint: Patient state that he tripped and fell over a pipe in his yard about 2 weeks ago and landed on his back States that he seen his PCP the day after and is currently prescribed muscle relaxers and pain medication States that he has chronic back pain anyhow States that since falling his pain in his lower back area has continued to get worse and he has been having spasms State that he has medications at home for it but he wanted to come in and get an xray to make sure he didnt break anything Denies loss of control of bowel or bladder - Related Data Home Medications Medication Instructions Recorded Confirmed Amlodipine Besylate [Amlodipine 10 mg PO DAILY 03/27/18 07/02/19 10mg Tab] Buspirone HCl [Buspirone 15 mg 15 mg PO BID 03/27/18 07/02/19 Tablets] Cholecalciferol (Vitamin D3) 5,000 unit PO WEEKLY 03/27/18 07/02/19 [Vitamin D3] Colchicine [Colcrys 0.6mg tablet] 0.6 mg PO DIRECTED 03/27/18 07/02/19 Ferrous Sulfate [Iron] 325 mg PO DAILY 03/27/18 07/02/19 Furosemide [Furosemide 20mg Tab] 20 mg PO DAILY 03/27/18 07/02/19 Gabapentin [Gabapentin 300mg Cap] 300 mg PO DAILY 03/27/18 07/02/19 Oxycodone HCl [Oxycodone (IR) 20mg 40 mg PO BID 03/27/18 07/02/19 Tab] Oxycodone HCl/Acetaminophen 1 each PO Q8HP PRN 03/27/18 07/02/19 [Oxycodone W/Apap 325mg Tablet
[2021-06-16 10:45] VITALS: BP 133/79; PULSE 66; RESP 16; TEMP 36.9
== END 2021-06-16 10:47 | disposition home or self-care (01) ==
PROVIDERS: Emergency Provider Nurse Practitioner; PCP Family Medicine
DX: M54.42 Lumbago with sciatica, left side (principal); W01.0XXA Fall on same level from slipping, tripping and stumbling without subsequent striking against object, initial encounter; Y92.017 Garden or yard in single-family (private) house as the place of occurrence of the external cause; I10 Essential (primary) hypertension; F41.9 Anxiety disorder, unspecified; Z79.899 Other long term (current) drug therapy
CPT/HCPCS: G0463; 72100; 73502; 99202

== ENCOUNTER → 2021-07-21 07:42 | Outpatient (CLI) | payer MEDICARE, MEDICAID, SELFPAY ==
--- NOTE | 2021-07-21 07:49 | US_ITS ---
PROCEDURE: US LIVER CLINICAL INDICATION: CIRRHOSIS COMPARISON: US US LIVER from 10/15/2019 US US ABDOMEN COMPLETE from 06/22/2020 FINDINGS: PANCREAS: Poor demonstration of the pancreas due to overlying bowel gas. LIVER: No focal liver lesion apparent. There is appropriate direction of blood flow within a non dilated portal vein. There is coarse echogenicity of the liver with no discrete mass demonstrated. RIGHT KIDNEY: Unremarkable. Normal size and echogenicity. No hydronephrosis GALLBLADDER: No gallstones, gallbladder wall thickening, pericholecystic fluid, or biliary dilatation. IMPRESSION: Nonspecific coarse echogenicity of the liver which could be seen with hepatitis. Otherwise negative with no significant change. Dictated by: Colton Sahni MD 07/21/2021 19:26 Colton Sahni MD in [place] 07/21/2021 19:26
== END ==
PROVIDERS: PCP Family Medicine; Visit Provider Nurse Practitioner
DX: K74.60 Unspecified cirrhosis of liver (principal)
CPT/HCPCS: 76705

== ENCOUNTER → 2021-09-08 08:01 | Outpatient (CLI) | payer MEDICARE, MEDICAID, SELFPAY ==
[2021-09-08 08:06] LABS: Microscopic, Urine URINE MICROSCOPIC (MICROSCOPIC)
[2021-09-08 08:33] LABS: Appearance,Urine CLEAR (Clear); Basophils % 0.5 % (0.1-2.0); Blood, Urine Negative (Negative); Color,Urine YELLOW (Yellow); Eosinophils % 1.2 % (0.1-12.0); Glucose,Urine (UA) Negative (Negative); Hemoglobin 14.2 g/dL (14.1-18.0); Ketones,Urine TRACE (Negative); Leukocyte Esterase,Urine Negative (Negative); Lymphocytes % 28.2 % (10-50); Mean Corpuscular HGB Conc 33.8 g/dL (31.8-35.4); Mean Corpuscular Hemoglobin 31.7 pg (27.0-31.2); Mean Corpuscular Volume 93.5 fl (80-94); Mean Platelet Volume 9.3 fl (7.4-10.4); Monocytes # 0.2 K/mm3 (0.1-1.0); Monocytes % 4.9 % (1.7-9.3); Neutrophils # 2.2 K/mm3 (1.8-7.8); Neutrophils % 65.2 % (37.0-80.0); Nitrate,Urine Negative (Negative); PH,Urine 5.5 (5.0-8.5); Platelet Count 82 K/mm3 (142-424); Protein,Urine Negative (Negative); Red Blood Count 4.49 M/mm3 (4.60-6.20); Red Cell Distribution Width 14.1 % (11.5-17.5); Specific Gravity, Urine >= 1.030 (1.005-1.030); White Blood Count 3.4 K/mm3 (4.8-10.8)
[2021-09-08 08:55] LABS: Bilirubin,Urine 1+ (Negative)
[2021-09-08 08:56] LABS: RBC,Urine Occasional #/hpf (0-3); WBC,Urine Occasional #/hpf (0-3)
[2021-09-08 10:09] LABS: Albumin Level 4.1 g/dl (3.5-5.0); Anion Gap 8.5 mEq/L (5-15); Blood Urea Nitrogen 16 mg/dl (9-20); Calcium 9.4 mg/dl (8.4-10.2); Carbon Dioxide 32 mmol/L (22.0-30.0); Chloride 101 mmol/L (98-107); Estimated Glomerular Filt Rate 62 ml/min (>60); GFR (African American) 75 ML/MIN (>60); Glucose 88 mg/dl (74-100); Phosphorous 3.4 mg/dl (2.5-4.5); Potassium 4.5 mmoL/L (3.5-5.1); Sodium 137 mmol/L (136-145)
[2021-09-08 10:47] LABS: Creatinine,Urine Random > 347 mg/dL (Not Estab.); Total Protein,Urine Random < 5.0 mg/dL (0.0-12.0)
[2021-09-08 11:06] LABS: Prostate Specific Ag Screen 0.2 ng/ml (0.0-4.0)
== END ==
PROVIDERS: Student in an Organized Health Care Education/Training Program; Visit Provider Family Medicine
DX: N18.30 Chronic kidney disease, stage 3 unspecified (principal); Z12.5 Encounter for screening for malignant neoplasm of prostate
CPT/HCPCS: 36415; 80069; 81001; 82570; 84155; 85025; G0103

== ENCOUNTER → 2022-03-02 07:50 | Outpatient (CLI) | payer MEDICARE, MEDICAID, SELFPAY ==
[2022-03-02 08:01] LABS: Microscopic, Urine URINE MICROSCOPIC (MICROSCOPIC)
[2022-03-02 08:18] LABS: Appearance,Urine CLEAR (Clear); Blood, Urine Negative (Negative); Color,Urine YELLOW (Yellow); Glucose,Urine (UA) Negative (Negative); Ketones,Urine TRACE (Negative); Leukocyte Esterase,Urine Negative (Negative); Nitrate,Urine Negative (Negative); Protein,Urine Negative (Negative); Specific Gravity, Urine >= 1.030 (1.005-1.030)
[2022-03-02 08:25] LABS: Bilirubin,Urine 1+ (Negative)
[2022-03-02 08:32] LABS: Bacteria,Urine Trace /lpf; Mucus,Urine Trace /lpf; WBC,Urine Occasional #/hpf (0-3)
[2022-03-02 09:12] LABS: Albumin Level 4.1 g/dl (3.5-5.0); Chloride 100 mmol/L (98-107); Potassium 4.1 mmoL/L (3.5-5.1); Sodium 139 mmol/L (136-145)
[2022-03-02 09:15] LABS: Anion Gap 11.1 mEq/L (5-15); Blood Urea Nitrogen 17 mg/dl (9-20); Carbon Dioxide 32 mmol/L (22.0-30.0); Estimated Glomerular Filt Rate 68 ml/min (>60); GFR (African American) 83 ML/MIN (>60)
[2022-03-02 09:16] LABS: Calcium 9.2 mg/dl (8.4-10.2); Glucose 103 mg/dl (74-100); Phosphorous 3.2 mg/dl (2.5-4.5)
[2022-03-02 09:20] LABS: Creatinine,Urine Random 395 mg/dL (Not Estab.)
== END ==
PROVIDERS: PCP Family Medicine; Visit Provider Internal Medicine Nephrology
DX: N18.30 Chronic kidney disease, stage 3 unspecified (principal)
CPT/HCPCS: 36415; 80069; 81001; 82570; 84155

== ENCOUNTER 2024-06-21 07:50 | Outpatient (CLI) | payer MEDICARE, MEDICAID, SELFPAY ==
--- NOTE | 2024-06-21 07:53 | US_ITS ---
FINAL REPORT CLINICAL HISTORY: CIRRHOSIS OF LIVER COMPARISON: Liver ultrasound 07/21/2021 FINDINGS: Sonographic images of the right upper quadrant were obtained. Technically limited due to patient body habitus. The pancreas is obscured. There is increased echogenicity of the liver which may be due to fatty infiltration or cirrhosis. There is no ascites. The gallbladder is surgically absent. There is no evidence of biliary ductal dilatation.The common duct measures 5 mm. Limited images of the right kidney are unremarkable. IMPRESSION: Increased liver echogenicity without ascites. Reviewed, Interpreted and Dictated by Elias Fuentes MD Transcribed by Ines Mckenna Authenticated and [facility]
== END 2024-06-21 23:59 | disposition home or self-care (01) ==
LOC: RAD 07:50
PROVIDERS: PCP Family Medicine; Visit Provider Physician Assistant
DX: K74.60 Unspecified cirrhosis of liver (principal)
CPT/HCPCS: 76705

== ENCOUNTER 2024-09-29 21:42 | Emergency (ER) | payer MEDICARE, MEDICAID, SELFPAY ==
[2024-09-29] VITALS (12 sets, daily range): BP systolic 104–130; BP diastolic 40–65; PULSE 55–88; RESP 11–20; TEMP 36.7–36.9; O2SAT 88–99; BMI 31.5
--- NOTE | 2024-09-29 21:43 | ECG_ITS ---
APPROVED REPORT Exam: Resting ECG HR:70 bpm ECG Measurements Heart Rate 70 AXES LA 195 P 87 QRSd 114 QRS 56 QT 396 T 148 QTc 417 Conclusion Sinus rhythm Global changes consistent with subendocardial ischemia. Electronically signed by : JOE COHN, 09/30/2024 15:01:25
--- NOTE | 2024-09-29 21:46 | CT_ITS ---
PROCEDURE INFORMATION: Exam: CTA Abdomen and Pelvis With Contrast Exam date and time: 09/29/2024 9:54 PM Age: 63 years old Clinical indication: Other: Gi bleed TECHNIQUE: Imaging protocol: Computed tomographic angiography of the abdomen and pelvis with contrast. Exam focused on the arteries. 3D rendering (Not supervised by radiologist): MIP and/or 3D reconstructed images were created by the technologist. Radiation optimization: All CT scans at this facility use at least one of these dose optimization techniques: automated exposure control; mA and/or kV adjustment per patient size (includes targeted exams where dose is matched to clinical indication); or iterative reconstruction. Contrast material: ISOUVE 370; Contrast volume: 80 ml; Contrast route: INTRAVENOUS (IV); COMPARISON: 1. CR XR HIP LT 2-3V W/PELVIS 06/16/2021 9:48 AM 2. US LIVER 06/21/2024 8:27 AM 3. US LIVER 07/21/2021 8:16 AM FINDINGS: Aorta: No aortic aneurysm. No aortic dissection. Celiac trunk and mesenteric arteries: No occlusion or significant stenosis. Renal arteries: No occlusion or significant stenosis. Right iliac arteries: No occlusion or significant stenosis. Left iliac arteries: No occlusion or significant stenosis. Liver: The liver demonstrates a cirrhotic morphology with nodular contour and volume redistribution. Gallbladder and biliary ducts: The patient is status post cholecystectomy. Pancreas: There is fatty replacement of the pancreas. There is peripancreatic stranding that could reflect pancreatitis, please correlate with lipase level. Spleen: The spleen is enlarged. There is a small splenule. Adrenal glands: Unremarkable. No mass. Kidneys and ureters: Unremarkable. No solid mass. No hydronephrosis. Stomach and bowel: Unremarkable. No obstruction. No mucosal thickening. Appendix: No evidence of appendicitis. Intraperitoneal space: There is a small volume of free fluid in the pelvis. Lymph nodes: Unremarkable. No enlarged lymph nodes. Urinary bladder: Unremarkable. No mass. Reproductive: Unremarkable as visualized. Bones/joints: No acute fracture. Soft tissues: There is a fat containing right inguinal hernia. IMPRESSION: 1. There is peripancreatic stranding that could reflect pancreatitis, please correlate with lipase level. 2. Widely patent mesenteric arterial vasculature without evidence for active intraluminal extravasation at the time of imaging. 3. Cirrhosis and portal hypertension.
--- NOTE | 2024-09-29 21:47 | PC.NURSE ---
Pt in sinus rythm per continuous heart monitor. Report given to Laila AL
--- NOTE | 2024-09-29 21:49 | PC.NURSE ---
Established 16ga IV in patients left ACsheree from lab was there for type and screen
[2024-09-29 21:55] LABS: Basophils % 0.3 % (0.1-2.0); Eosinophils # 0.1 K/mm3 (0.0-0.4); Eosinophils % 1.3 % (0.1-12.0); Lymphocytes # 0.6 K/mm3 (0.7-4.5); Lymphocytes % 16.1 % (10-50); Mean Corpuscular HGB Conc 27.6 g/dL (31.8-35.4); Mean Corpuscular Hemoglobin 22.8 pg (27.0-31.2); Mean Corpuscular Volume 82.5 fl (80-94); Mean Platelet Volume 11.8 fl (7.4-10.4); Monocytes # 0.3 K/mm3 (0.1-1.0); Monocytes % 6.4 % (1.7-9.3); Neutrophils % 75.4 % (37.0-80.0); Platelet Count 77 K/mm3 (142-424); Red Blood Count 2.06 M/mm3 (4.60-6.20); Red Cell Distribution Width 15.9 % (11.5-17.5); White Blood Count 3.9 K/mm3 (4.8-10.8)
[2024-09-29 22:01] LABS: Hemoglobin 4.7 g/dL (14.1-18.0)
[2024-09-29 22:01] LABS: Lactate Venous 3.2 mmol/L (0.4-2.0); VBG Base Excess 2.6 mmol/L (-2.4-2.3); VBG HCO3 27.5 mmol/L (23-30); VBG Oxygen Saturation 99.5 % (50-70); VBG PCO2 46.2 mmol/L (35-51); VBG PH 7.39 mmol/L (7.31-7.41); VBG PO2 150.5 mmol/L (28-40); VBG Total CO2 28.9 mmol/L (23-27)
[2024-09-29 22:06] LABS: Alanine Aminotransferase 22 U/L (12-78); Albumin Level 2.9 g/dl (3.5-5.0); Albumin/Globulin Ratio 1.2 (1.1-1.8); Alkaline Phosphatase 103 U/L (38-126); Anion Gap 7.9 mEq/L (5-15); Aspartate Amino Transferase 32 U/L (17-59); Bilirubin,Total 0.5 mg/dl (0.2-1.3); Blood Urea Nitrogen 27 mg/dl (9-20); Calcium 7.9 mg/dl (8.4-10.2); Carbon Dioxide 28 mmol/L (22.0-30.0); Chloride 105 mmol/L (98-107); Creatinine Clearance Estimated 72 mL/min (50-200); Estimated Glomerular Filt Rate 47 ml/min (>60); GFR (African American) 57 ML/MIN (>60); Globulin 2.4 g/dL (1.3-3.2); Glucose 94 mg/dl (74-100); Magnesium 1.8 mg/dl (1.6-2.3); Potassium 3.9 mmoL/L (3.5-5.1); Sodium 137 mmol/L (136-145); Total Protein,Serum 5.3 g/dl (6.3-8.2)
--- NOTE | 2024-09-29 22:06 | PC.NURSE ---
Pt placed on 4 lpm nasal O2 due to ischemic changes on EKG and low HGB
--- NOTE | 2024-09-29 22:07 | ED_ITS ---
Discharge Plan Disposition Patient Disposition: Xfer Short-Term Hosp Chief Complaint: Recheck/Abnormal Lab/Rx Prescriptions Prescriptions: No Action carvedilol 25 MG Tablet 25 mg PO BID sertraline [Zoloft] 100 MG Tablet 200 mg PO DAILY oxycodone-acetaminophen 1 EACH Tablet 1 ea PO Q8HP PRN (Reason: pain) pantoprazole 40 MG Tablet.Dr 40 mg PO DAILY gabapentin 300 MG Capsule 300 mg PO DAILY furosemide 20 MG Tablet 20 mg PO DAILY colchicine [Colcrys] 0.6 MG Tablet 0.6 mg PO DIRECTED Rx Instructions: every other day cholecalciferol (vitamin D3) 5,000 UNIT Capsule 5,000 unit PO WEEKLY vitamin E 400 UNIT Capsule 400 unit PO DAILY spironolactone 50 MG Tablet 50 mg PO DAILY ferrous sulfate [iron] 325 MG Capsule.Er 325 mg PO DAILY tizanidine [Zanaflex] 4 MG Capsule 4 mg PO BID coenzyme Q10 [Co Q-10] 200 MG Capsule 200 mg PO DAILY oxycodone 20 MG Tablet 40 mg PO BID rifaximin [Xifaxan] 550 MG Tablet 550 mg PO DAILY amlodipine [Norvasc] 10 MG Tablet 10 mg PO DAILY allopurinol 300 MG Tablet 300 mg PO DAILY buspirone 15 MG Tablet 15 mg PO BID ondansetron 4 MG tablet,disintegrating 4 mg PO Q4H PRN (Reason: Nausea) Referrals Follow up/Referrals: López Alicea MD [Primary Care Provider] - See instructions Clinical Impressions Clinical Impression: ABLA (acute blood loss anemia), Symptomatic anemia Print Language Print Language: Syriac Discharge ED Provider: Deandre Barksdale General Adult HPI General Chief complaint: Recheck/Abnormal Lab/Rx Stated complaint: abnormal lab Time Seen by Provider: 09/29/24 21:46 Mode of Arrival: EMS Source of Information: Patient Limitations: No Limitations Description of Symptoms (Recalled from ER Triage Doc. by RN): Abnormal labs Seen at [facility] for HGB of 1.1 Signed out AMA States his back was hurting and could not wait for blood. Skin pale warm and moist. History of Present Illness HPI narrative: Please note that above description of symptoms, in this electronic medical record under categorization of recalled from ER triage doctor by RN are reflective of an initial nursing assessment, however, is not reflective of my full history and physical exam that was personally taken and clarified. Consequentially, this preceding description of symptoms, which may include the patient's categorized chief complaint in the EMR, do not reflect my personal clinical impression, and the ultimate description of history of present illness and patient stated complaints should be deferred to this section of the note. Unless stated otherwise or congruent with this section of the note, additional signs, symptoms, or incongruence should be interpreted as inaccurate with my clinical impression. Related Data Home Medications ?Medication ?Instructions ?Recorded ?Confirmed allopurinol 300 mg tablet 300 mg PO DAILY gout 03/27/18 07/02/19 amlodipine 10 mg tablet (Norvasc) 10 mg PO DAILY htn 03/27/18 07/02/19 buspirone 15 mg tablet 15 mg PO BID Anxiety 03/27/18 07/02/19 carvedilol 25 mg tablet 25 mg PO BID htn 03/27/18 07/02/19 cholecalciferol (vitamin D3) 125 5,000 unit PO WEEKLY Supplement 03/27/18 07/02/19 mcg (5,000 unit) capsule coenzyme Q10 200 mg capsule (Co 200 mg PO DAILY Supplement 03/27/18 07/02/19 Q-10) colchicine 0.6 mg tablet (Colcrys) 0.6 mg PO DIRECTED gout 03/27/18 07/02/19 ferrous sulfate 325 mg (65 mg 325 mg PO DAILY Supplement 03/27/18 07/02/19 iron) capsule,extended release (iron ER) furosemide 20 mg tablet 20 mg PO DAILY Fluid 03/27/18 07/02/19 gabapentin 300 mg capsule 300 mg PO DAILY Pain 03/27/18 07/02/19 oxycodone 20 mg tablet 40 mg PO BID Pain 03/27/18 07/02/19 oxycodone-acetaminophen 10 mg-325 1 ea PO Q8HP PRN pain 03/27/18 07/02/19 mg tablet pantoprazole 40 mg tablet,delayed 40 mg PO DAILY GERD 03/27/18 07/02/19 release rifaximin 550 mg tablet (Xifaxan) 550 mg PO DAILY IBS/LIVER 03/27/18 07/02/19 sertraline 100 mg tablet (Zoloft) 200 mg PO DAILY Depression 03/27/18 07/02/19 spironolactone 50 mg tablet 50 mg PO DAILY Fluid 03/27/18 07/02/19 tizanidine 4 mg capsule (Zanaflex) 4 mg PO BID muscle spasms 03/27/18 07/02/19 vitamin E 268 mg (400 unit) capsule 400 unit PO DAILY Supplement 03/27/18 07/02/19 ondansetron 4 mg disintegrating 4 mg PO Q4H PRN Nausea 07/02/19 07/02/19 tablet Allergies Allergy/AdvReac Type Severity Reaction Status Date / Time No Known Allergies Allergy Verified 03/27/18 10:45 [facility] Disclaimer: The information contained in this section may have been updated after the patient was seen, as this information can be updated by other users. Social History Smoking Status: Never smoker alcohol intake: never current occupational status: disabled Travel in the last 8 weeks: None Have you lived/traveled outside [place] in past 30 days?: No Contact w/someone who lives/traveled outside US past 30 days?: No Exposure to someone with infectious disease in past 14 days?: No Do you have a fever (greater than 100.4 F or 38 C)?: No Have you tested positive for COVID-19: No Exposed to someone with COVID-19 in past 14 days?: No Do you have a sore throat?: No Do you have a cough?: No Do you have any weakness?: No Do you have any diarrhea?: No Are you experiencing any unusual bleeding?: No Do you have any muscle aches/pain?: No Do you have any abdominal pain?: No Are you experiencing loss of taste or smell?: No Other Medical History Have you received the Flu Vaccine for this season: No Have you received the Pneumonia Vaccine: No ROS Obtained: Yes All systems reviewed & no additional complaints except as documented Physical Exam General General appearance: alert Head Head exam: atraumatic and normocephalic Eye Eye exam: Present normal appearance, PERRL and EOMI Neck Neck exam: Present normal inspection, full ROM and trachea midline Respiratory Respiratory exam: Absent respiratory distress, wheezes, stridor, accessory muscle use or prolonged expiratory phase Cardiovascular Cardiovascular exam: Present other (Pulses equal symmetric in upper and lower extremities) Abdominal Exam Abdominal exam: Present soft; Absent distention, tenderness or pulsatile mass Extremities Exam Extremities exam: Absent edema Neurological Exam Neurological exam: Present alert, oriented X3 and CN II-XII intact; Absent motor sensory deficit Skin Skin exam: Present warm and dry; Absent diaphoresis or erythema Medical Decision Making Medical Records Medical records reviewed: Yes I reviewed the patient's medical records. Screening: Per USPSTF and CDC recommendations, given the prevalence of disease in our region, it is our hospital?s policy to screen for HIV and viral Hepatitis for all patients aged 18 and over and those with ongoing risk factors. Patricio Inquiry Pt receiving controlled substance: No Patricio was queried for this patient: No Vital Signs: 09/29/24 21:41 Temperature 98.2 F Temperature Source Oral Pulse Rate [Right Brachial] 88 Respiratory Rate 20 Blood Pressure [Right Arm] 104/40 L Blood Pressure Mean [Right Arm] 61 Blood Pressure Source [Right Arm] Automatic Cuff Blood Pressure Position [Right Arm] Supine 02 Sat by Pulse Oximetry 97 Oxygen Delivery Method Room Air Lab Data Lab Results 09/29/24 21:33: WBC 3.9 L, RBC 2.06 L, Hgb 4.7 L*, Hct 17.0 L*, MCV 82.5, MCH 22.8 L, MCHC 27.6 L, RDW 15.9, Plt Count 77 L, MPV 11.8 H, Neut % (Auto) 75.4, Lymph % (Auto) 16.1, Pine % (Auto) 6.4, Eos % (Auto) 1.3, Baso % (Auto) 0.3, Neut # (Auto) 3.0, Lymph # (Auto) 0.6 L, Pine # (Auto) 0.3, Eos # (Auto) 0.1, Baso # (Auto) 0.0, Sodium 137, Potassium 3.9, Chloride 105, Carbon Dioxide 28, Anion Gap 7.9, BUN 27 H, Creatinine 1.50 H, Estimated Creat Clear 72, Estimated GFR 47 L, Est GFR ( Amer) 57 L, Glucose 94, Calcium 7.9 L, Magnesium 1.8, Total Bilirubin 0.5, AST 32, ALT 22, Alkaline Phosphatase 103, Troponin I 0.01, NT-Pro-B Natriuret Pep 628 H, Total Protein 5.3 L D, Albumin 2.9 L, Globulin 2.4, Albumin/Globulin Ratio 1.2 09/29/24 21:45: Crossmatch (AHG) See Detail 09/29/24 21:47: VBG pH 7.39, VBG pCO2 46.2, VBG pO2 150.5 H, VBG HCO3 27.5, VBG Total CO2 28.9 H, VBG O2 Saturation 99.5 H, VBG Base Excess 2.6 H, VBG Lactic Acid 3.2 H 09/29/24 22:01: Lactate 1.3 09/29/24 21:33 09/29/24 21:33 Orders (Tests/Meds): ED MEDICATIONS Generic Name Dose Route Start Last Admin Trade Name Freq PRN Reason Stop Dose Admin Sodium Chloride 250 mls @ 25 mls/hr 09/29/24 22:00 Sod Chlor 0.9% 250ml Bag IV 09/30/24 21:59 .Q10H MERLINE Sodium Chloride 10 ml 09/29/24 22:09 Sodium Chloride 0.9% 10ml Vial IV 10/29/24 22:08 NEEDED PRN dilute protonix Discontinued Medications Generic Name Dose Route Start Last Admin Trade Name Freq PRN Reason Stop Dose Admin Ceftriaxone Sodium 2 gm/ 100 mls @ 200 mls/hr 09/29/24 22:09 09/29/24 22:14 Sodium Chloride IV 09/29/24 22:38 200 mls/hr ONCE ONE Administration Pantoprazole Sodium 40 mg 09/29/24 22:09 09/29/24 22:14 Pantoprazole 40mg Vial IV 09/29/24 22:10 40 mg ONCE ONE Administration ORDERS Category Date Time Status Transfuse RBC's [Red Blood Cells] Stat BBK 09/29/24 21:45 Received Type and Screen Stat BBK 09/29/24 21:[address] angio abdomen pelvis Stat Cat Scan 09/29/24 21:46 Ordered Complete Blood Count Auto Diff Stat Lab 09/29/24 21:33 Completed Comprehensive Metabolic Panel Stat Lab 09/29/24 21:33 Completed HIV Combo Stat Lab 09/29/24 21:33 Received Hep C Ab with Reflex to RNA Stat Lab 09/29/24 21:47 Ordered Lactic Acid Stat Lab 09/29/24 22:01 Completed Magnesium Stat Lab 09/29/24 21:33 Completed NT Pro Brain Natriuretic Pep. Stat Lab 09/29/24 21:33 Completed PT INR [Prothrombin Time INR] Stat Lab 09/29/24 22:01 Received PTT [Activated Partial Thrombo Time] Stat Lab 09/29/24 22:01 Received Troponin I Q3H Lab 09/30/24 01:00 Ordered Troponin I Q3H Lab 09/30/24 04:00 Ordered Troponin I Stat Lab 09/29/24 21:33 Completed Blood Culture Stat Micro 09/29/24 22:01 Ordered Venous Blood Gas Stat RT 09/29/24 21:47 Completed Medical Decision Narrative: 63-year-old male history of hypertension, hyperlipidemia, gout, CAD, DVT in the past previously on anticoagulation no longer on anticoagulation, cirrhosis presenting with symptomatic anemia. Patient states that he was seen at [facility] for watermelon stomach, and had a anemia with hemoglobin of 1.9 earlier today, 09/29. States that he received 2 units and when he started feeling better, he left AMA. When he got home, he was having near syncopal events, so EMS was contacted. Brought him back to this hospital at patient's request. On arrival, patient incredibly pale. Has no acute complaints when laying still, but states that any movement makes him feel lightheaded and weak. History was obtained via conversation with patient and EMS. On arrival, patient hemodynamically stable, alert, oriented x4, appropriate, GCS 15, moving all extremities spontaneously, pupils equal and reactive to light. Full physical exam performed and significant for chronically ill-appearing, but in no acute distress. 92% on room air, placed on 2 L nasal cannula around 97%. Patient's cardiac exam without murmurs gallops or rubs. Abdomen is soft, nontender, nondistended. He does not have any dried blood in his mouth. Lower extremity nonpitting edema. Lungs are clear. Differential includes AVM, gastritis, PUD, variceal bleed, symptomatic anemia, hemorrhagic shock, acute on chronic blood loss, among others. Patient placed on continuous cardiac monitoring and continuous pulse ox with initial blood pressure 104 over, heart rate 88, saturation 87% on 2 L nasal cannula. Independent interpretation of EKG shows sinus rhythm [address] depressions and T wave inversions in septal, lateral and inferior leads consistent with global ischemia in the setting of severe anemia. No reciprocal elevations. WI 195, QRS 114, QTc 417. Patient was given 1 unit uncrossed match blood, normal saline for symptomatic management and correction of underlying abnormalities. Workup independently interpreted and significant for hemoglobin 4.7, hematocrit 17. Patient also thrombocytopenic with platelets at 77,000. Patient has an MARLEN. Troponin normal at 0.01, BNP elevated around 650. [facility] was contacted for gastroenterology and need for continued monitoring and blood. Hospital is full. [facility] was contacted and case was discussed, graciously excepted transfer. Because patient high risk for clinical decompensation if discharged, deemed appropriate for transfer and inpatient admission. Results were relayed to patient who voiced understanding and patient was agreeable to transfer, inpatient admission, and management. Patient was graciously accepted and transferred to for further definitive management, under Dr. More. Freezer Unloader disclaimer Much of this encounter note is an electronic slope hoist operator spoken language to printed text. Electronic slope hoist operator of the spoken language may permit errors. Although I have reviewed the note, some errors may still exist. Critical Care Critical Care Time Critical Care Time: Yes (hematologic) Attestation: On 09/29/24, the high probability of a clinically significant, sudden or life threatening deterioration of the following system(s) required my full and direct attention, intervention and personal management. The time I documented below is in addition to time spent performing reported procedures but includes the following listed in this critical care notation. Total Time Total Critical Care Time: 60
[2024-09-29] MEDS: CEFTRIAXONE SODIUM 2 GM in 0.9 % SODIUM CHLORIDE 100 ML IV (22:14)
[2024-09-29] MEDS: PANTOPRAZOLE 40MG VIAL 40 MG IV (22:14)
[2024-09-29 22:17] LABS: NT Pro Brain Natriuretic Pep. 628 pg/mL (0-125)
[2024-09-29 22:21] LABS: Troponin I 0.01 ng/ml (0.00-0.034)
[2024-09-29 22:31] LABS: Lactic Acid 1.3 mmol/L (0.7-2.1)
[2024-09-29 22:51] LABS: Activated Partial Thrombo Time 21.1 seconds (22.8-30.6); INR 1.15 (0.9-1.1); Prothrombin Time 12.7 seconds (10.1-12.5)
--- NOTE | 2024-09-29 23:08 | PC.NURSE ---
attempted to call report to [facility], [place], twice. Stated they would call me back due to an emergency.
[2024-09-29] MEDS: 0.9 % SODIUM CHLORIDE 250 ML 25 ML IV (23:09)
[2024-09-29] MEDS: 0.9 % SODIUM CHLORIDE 50 ML VIAL IV (23:10)
[2024-09-29] MEDS: SODIUM CHLORIDE 0.9% 10ML SYR (RAD ONLY) 10 ML IV (23:11)
[2024-09-29] MEDS: IOPAMIDOL-370 (76%);100ML BOTTLE 80 ML IV (23:11)
[2024-09-29] MEDS: LACTATED RINGERS 1000ML 1,000 ML 50 ML IV (23:12)
[2024-09-29 23:13] LABS: HIV Combo NEGATIVE (Negative)
--- NOTE | 2024-09-29 23:33 | PC.NURSE ---
Addendum entered by Monserrat Arriaga RN 09/30/24 00:12: Emergent blood order for 1 unit confirmed by this RN with Dr. Apolonia JIMENEZ and [employer] at bedside. Blood confirmed to be O pos, correct patient. Blood was unmatched due to emergency need. 1 unit given. Original Note: pt brought in by EMS with compliants of a GI Bleed and low hemoglobin. pt stated he was seen at [facility] yesterday and recieved 2 units and left AMA without seeing GI, but was still very weak today. pt showed signs of symptomatic anemia upon arrival. MD order 1 unit of emergent blood and lab was called at 2145 and arrived to the ER at 2150. Emergent blood unit #1 was started at 2201. Beginning vital signs were stable and 2L NC was applied. Transfusion was completed without any complications and patient tolerated well. All vital signs remained stable throughout transfusion, see blood transfusion vital sign paper documentation. Unit 1 completed at 2230. consulted for bed and declined then consulted and accepted patient to FlexU bed 4. helicopter accepted flight. Helicopter arrived a 2340. Patient left @ 234
--- NOTE | 2024-09-29 23:40 | PC.NURSE ---
[facility] at bedside
[2024-09-30 02:01] LABS: Reflex Lactic Add Lactic Reflex
--- NOTE | 2024-09-30 02:03 | PC.NURSE ---
[facility] called to update, patient did well in flight and arrived to flexICU without complications.
== END 2024-09-29 23:52 | disposition short-term general hospital (02) ==
PROVIDERS: Emergency Provider Emergency Medicine; PCP Family Medicine
DX: D62 Acute posthemorrhagic anemia (principal); D64.9 Anemia, unspecified; R79.9 Abnormal finding of blood chemistry, unspecified; M54.9 Dorsalgia, unspecified
CPT/HCPCS: 74174; 80053; 82803; 83605; 83735; 83880; 84484; 85025; 85610; 85730; 86850; 87040; 87389; 93005; 96365; 96374; 99291; J0696; J7120; P9016; Q9967

== ENCOUNTER 2024-10-17 20:10 | Emergency (ER) | payer MEDICARE, MEDICAID, SELFPAY ==
[2024-10-17 20:28] VITALS: BP 143/101; PULSE 98; RESP 20; TEMP 36.9; O2SAT 99; BMI 41.8
--- NOTE | 2024-10-17 20:36 | CT_ITS ---
PROCEDURE INFORMATION: Exam: CT Lumbar Spine Without Contrast Exam date and time: 10/17/2024 9:13 PM Age: 63 years old Clinical indication: Injury or trauma; Fall; Other: Pain; Additional info: Fall, head injury, + loc TECHNIQUE: Imaging protocol: Computed tomography of the lumbar spine without contrast. Radiation optimization: All CT scans at this facility use at least one of these dose optimization techniques: automated exposure control; mA and/or kV adjustment per patient size (includes targeted exams where dose is matched to clinical indication); or iterative reconstruction. COMPARISON: CR XR LUMBAR SPINE 2-3V 06/16/2021 9:52 AM FINDINGS: Bones/joints: Moderate loss of intervertebral disc space with degenerative changes at L1 through S1. The vertebral bodies are maintained in height and alignment. No evidence of acute osseous abnormality. Soft tissues: Unremarkable. IMPRESSION: No evidence of acute osseous abnormality.
--- NOTE | 2024-10-17 20:36 | XR_ITS ---
PROCEDURE INFORMATION: Exam: XR Chest Exam date and time: 10/17/2024 9:15 PM Age: 63 years old Clinical indication: Injury or trauma; Fall; Other: Pain; Additional info: Fall, trauma TECHNIQUE: Imaging protocol: Radiologic exam of the chest. Views: 1 view. COMPARISON: CR XR RIBS LT MIN 3V W CXR1V 07/02/2019 8:30 AM FINDINGS: Lungs: Unremarkable. No consolidation. Pleural spaces: Unremarkable. No pleural effusion. No pneumothorax. Heart/Mediastinum: Unremarkable. No cardiomegaly. Bones/joints: Unremarkable. IMPRESSION: No acute findings.
--- NOTE | 2024-10-17 20:36 | XR_ITS ---
PROCEDURE INFORMATION: Exam: XR Pelvis Exam date and time: 10/17/2024 9:15 PM Age: 63 years old Clinical indication: Injury or trauma; Fall; Other: Pain; Additional info: Fall, head injury, + loc TECHNIQUE: Imaging protocol: Radiologic exam of the pelvis. Views: 1 or 2 view. COMPARISON: CT ANGIO ABDOMEN PELVIS 09/29/2024 9:54 PM FINDINGS: Bones/joints: Small marginal osteophytes and degenerative changes involving the bilateral femoroacetabular joints. No evidence of acute osseous abnormality. Soft tissues: Unremarkable. IMPRESSION: 1. Small marginal osteophytes and degenerative changes involving the bilateral femoroacetabular joints. 2. No evidence of acute osseous abnormality.
--- NOTE | 2024-10-17 20:36 | CT_ITS ---
PROCEDURE INFORMATION: Exam: CT Cervical Spine Without Contrast Exam date and time: 10/17/2024 9:07 PM Age: 63 years old Clinical indication: Injury or trauma; Fall; Other: Pain; Additional info: Fall, head injury, + loc TECHNIQUE: Imaging protocol: Computed tomography of the cervical spine without contrast. Total images: 292 Radiation optimization: All CT scans at this facility use at least one of these dose optimization techniques: automated exposure control; mA and/or kV adjustment per patient size (includes targeted exams where dose is matched to clinical indication); or iterative reconstruction. COMPARISON: CT HEAD/BRAIN WO CON 10/17/2024 9:05 PM FINDINGS: Bones: Attenuation artifacts obscuring detail. Osseous demineralization. Straightened cervical lordosis with broad-based dextrocurvature. Vertebral body height and alignment is maintained. The base of the dens and the C1 and C2 articulations are preserved with moderate degenerative arthropathy. The cervicooccipital junction is intact. The facet joints are appropriately aligned with mild multilevel degenerate facet joint spondylosis. Posterior elements are intact. Mild degenerative disc disease uniformly affecting all cervical levels. Poorly assessed spinal canal contents secondary to attenuation artifact. Multilevel bilateral neural foraminal encroachment from uncovertebral spurring. Partial bridging anterior endplate osteophyte formation at C3 through C7. Prevertebral and retropharyngeal spaces: No prevertebral soft tissue swelling. Lungs: Lung apices are clear. Soft tissues: Unremarkable soft tissues of the neck. IMPRESSION: 1. No acute cervical fracture or traumatic subluxation. 2. Straightened lordosis with broad-based dextrocurvature from position or muscle spasm. 3. Moderate multilevel degenerative disc disease and facet joint spondylosis.
--- NOTE | 2024-10-17 20:36 | CT_ITS ---
PROCEDURE INFORMATION: Exam: CT Thoracic Spine Without Contrast Exam date and time: 10/17/2024 9:10 PM Age: 63 years old Clinical indication: Injury or trauma; Fall; Other: Pain; Additional info: Fall, head injury, + loc TECHNIQUE: Imaging protocol: Computed tomography of the thoracic spine without contrast. Radiation optimization: All CT scans at this facility use at least one of these dose optimization techniques: automated exposure control; mA and/or kV adjustment per patient size (includes targeted exams where dose is matched to clinical indication); or iterative reconstruction. COMPARISON: CT CERVICAL SPINE WO CON 10/17/2024 9:07 PM FINDINGS: Bones/joints: Moderate loss of intervertebral disc space with degenerative changes at T3 through T11. The vertebral bodies are maintained in height and alignment. No evidence of acute osseous abnormality. Soft tissues: Unremarkable. Vasculature: There is mild calcific atherosclerotic disease of the thoracic aorta without aneurysmal dilatation. IMPRESSION: No evidence of acute osseous abnormality.
--- NOTE | 2024-10-17 20:36 | CT_ITS ---
PROCEDURE INFORMATION: Exam: CT Head Without Contrast Exam date and time: 10/17/2024 9:05 PM Age: 63 years old Clinical indication: Injury or trauma; Fall; Other: Pain; Additional info: Fall, head injury, + loc TECHNIQUE: Imaging protocol: Computed tomography of the head without contrast. Total images: 600 Radiation optimization: All CT scans at this facility use at least one of these dose optimization techniques: automated exposure control; mA and/or kV adjustment per patient size (includes targeted exams where dose is matched to clinical indication); or iterative reconstruction. COMPARISON: CR (PA, SKULL, [employer]) 04/12/2018 10:43 AM FINDINGS: Brain: No acute intracranial hemorrhage, midline shift, or mass. Mild cortical and cerebellar atrophy. Mild white matter hypodensity compatible with remote small vessel ischemic change. No territorial infarct. Basilar cisterns are preserved. Cerebral ventricles: No ventriculomegaly. Paranasal sinuses: Visualized sinuses are unremarkable. No fluid levels. Mastoid air cells: Visualized mastoid air cells are well aerated. Bones: Unremarkable. No acute fracture. Soft tissues: Unremarkable. Other findings: Limited by attenuation artifact. IMPRESSION: No acute intracranial process.
[2024-10-17] MEDS: ACETAMINOPHEN 500MG TAB 1000 MG PO (20:41)
[2024-10-17] MEDS: ONDANSETRON 4MG ODT 4 MG SL (20:50)
--- NOTE | 2024-10-17 21:36 | ED_ITS ---
Discharge Plan Disposition Patient Disposition: Home, Self-Care Condition: Good Prescriptions Prescriptions: New cephalexin 500 mg capsule 500 mg PO BID 7 Days Qty: 14 0RF No Action carvedilol 25 MG tablet 25 mg PO BID sertraline [Zoloft] 100 MG tablet 200 mg PO DAILY oxycodone-acetaminophen 1 EACH tablet 1 ea PO Q8HP PRN (Reason: pain) pantoprazole 40 MG tablet,delayed release (DR/EC) 40 mg PO DAILY gabapentin 300 MG capsule 300 mg PO DAILY furosemide 20 MG tablet 20 mg PO DAILY colchicine [Colcrys] 0.6 MG tablet 0.6 mg PO DIRECTED Rx Instructions: every other day cholecalciferol (vitamin D3) 5,000 UNIT capsule 5,000 unit PO WEEKLY vitamin E 400 UNIT capsule 400 unit PO DAILY spironolactone 50 MG tablet 50 mg PO DAILY ferrous sulfate [iron] 325 MG capsule, extended release 325 mg PO DAILY tizanidine [Zanaflex] 4 MG capsule 4 mg PO BID coenzyme Q10 [Co Q-10] 200 MG capsule 200 mg PO DAILY oxycodone 20 MG tablet 40 mg PO BID rifaximin [Xifaxan] 550 MG tablet 550 mg PO DAILY amlodipine [Norvasc] 10 MG tablet 10 mg PO DAILY allopurinol 300 MG tablet 300 mg PO DAILY buspirone 15 MG tablet 15 mg PO BID ondansetron 4 MG tablet,disintegrating 4 mg PO Q4H PRN (Reason: Nausea) Referrals Follow up/Referrals: López Alicea MD [Primary Care Provider] - See instructions Activity Restrictions/Add. Instructions Additional Instructions/Restrictions: Keep your wound clean and dry. You may wash with soap and water. Please return to the [facility] ER or your PCP to have jimmy taken out in 7 days. I have started you on antibiotic. Please take it till its gone. Return for any increasing redness pain swelling drainage as needed. Clinical Impressions Clinical Impression: Laceration Instructions Patient Instructions: DI for Laceration Repair, DI for Closed Head Injury Print Language Print Language: Nauruan Discharge ED Provider: Rupinder Lugo General Adult HPI <LUIS ENRIQUE Mcguire - Last Filed: 10/17/24 22:28> General Chief complaint: Wound/Laceration Stated complaint: [id number] head lac Time Seen by Provider: 10/17/24 20:33 Mode of Arrival: Wheelchair Source of Information: Patient Limitations: No Limitations Description of Symptoms (Recalled from ER Triage Doc. by RN): pt was getting out of bed when he lost his balance and hit he head on the dresser. pt reports he has unknown LOC. no blood thinner use. History of Present Illness HPI narrative: This patient is a 63-year-old male who was getting out of bed and tripped running head long into a dresser. He did not have loss of consciousness. He reports that he only has pain from the laceration that he suffered at the top of his head. He denies any fever chills hemoptysis hematochezia melena nausea vomiting diarrhea. He has no vision changes no loss of sense of smell or taste. Related Data Home Medications ?Medication ?Instructions ?Recorded ?Confirmed allopurinol 300 mg tablet 300 mg PO DAILY gout 03/27/18 07/02/19 amlodipine 10 mg tablet (Norvasc) 10 mg PO DAILY htn 03/27/18 07/02/19 buspirone 15 mg tablet 15 mg PO BID Anxiety 03/27/18 07/02/19 carvedilol 25 mg tablet 25 mg PO BID htn 03/27/18 07/02/19 cholecalciferol (vitamin D3) 125 5,000 unit PO WEEKLY Supplement 03/27/18 07/02/19 mcg (5,000 unit) capsule coenzyme Q10 200 mg capsule (Co 200 mg PO DAILY Supplement 03/27/18 07/02/19 Q-10) colchicine 0.6 mg tablet (Colcrys) 0.6 mg PO DIRECTED gout 03/27/18 07/02/19 ferrous sulfate 325 mg (65 mg 325 mg PO DAILY Supplement 03/27/18 07/02/19 iron) capsule,extended release (iron ER) furosemide 20 mg tablet 20 mg PO DAILY Fluid 03/27/18 07/02/19 gabapentin 300 mg capsule 300 mg PO DAILY Pain 03/27/18 07/02/19 oxycodone 20 mg tablet 40 mg PO BID Pain 03/27/18 07/02/19 oxycodone-acetaminophen 10 mg-325 1 ea PO Q8HP PRN pain 03/27/18 07/02/19 mg tablet pantoprazole 40 mg tablet,delayed 40 mg PO DAILY GERD 03/27/18 07/02/19 release rifaximin 550 mg tablet (Xifaxan) 550 mg PO DAILY IBS/LIVER 03/27/18 07/02/19 sertraline 100 mg tablet (Zoloft) 200 mg PO DAILY Depression 03/27/18 07/02/19 spironolactone 50 mg tablet 50 mg PO DAILY Fluid 03/27/18 07/02/19 tizanidine 4 mg capsule (Zanaflex) 4 mg PO BID muscle spasms 03/27/18 07/02/19 vitamin E 268 mg (400 unit) capsule 400 unit PO DAILY Supplement 03/27/18 07/02/19 ondansetron 4 mg disintegrating 4 mg PO Q4H PRN Nausea 07/02/19 07/02/19 tablet Previous Rx's ?Medication ?Instructions ?Recorded cephalexin 500 mg capsule 500 mg PO BID 7 days #14 caps 10/17/24 Allergies Allergy/AdvReac Type Severity Reaction Status Date / Time No Known Allergies Allergy Verified 03/27/18 10:45 <Rupinder Lugo DO - Last Filed: 10/18/24 00:03> History of Present Illness HPI narrative: This patient is a 63-year-old male [facility] <LUIS ENRIQUE Mcguire - Last Filed: 10/17/24 22:28> [facility] Disclaimer: The information contained in this section may have been updated after the patient was seen, as this information can be updated by other users. Social History Smoking Status: Never smoker alcohol intake: never current occupational status: disabled Travel in the last 8 weeks: None Have you lived/traveled outside [place] in past 30 days?: No Contact w/someone who lives/traveled outside US past 30 days?: No Exposure to someone with infectious disease in past 14 days?: No Do you have a fever (greater than 100.4 F or 38 C)?: No Have you tested positive for COVID-19: No Exposed to someone with COVID-19 in past 14 days?: No Do you have a sore throat?: No Do you have a cough?: No Do you have any weakness?: No Do you have any diarrhea?: No Are you experiencing any unusual bleeding?: Yes Do you have any muscle aches/pain?: No Do you have any abdominal pain?: No Are you experiencing loss of taste or smell?: No Other Medical History Have you received the Flu Vaccine for this season: No Have you received the Pneumonia Vaccine: No <LUIS ENRIQUE Mcguire - Last Filed: 10/17/24 22:28> ROS Obtained: Yes Systems reviewed as appropriate & no additional complaints except as documented Physical Exam <LUIS ENRIQUE Mcguire - Last Filed: 10/17/24 22:28> General General appearance: alert Head Head exam: other (Patient has a midline laceration from the anterior scalp line in the middle of his head proceeding posteriorly for 8 cm no palpable bony defor mity) Eye Eye exam: Present normal appearance, PERRL and EOMI Neck Neck exam: Present normal inspection and full ROM Respiratory Respiratory exam: Present normal lung sounds bilaterally Cardiovascular Cardiovascular exam: Present regular rate Neurological Exam Neurological exam: Present alert, oriented X3 and CN II-XII intact Psychiatric Psychiatric exam: Present normal affect Medical Decision Making <LUIS ENRIQUE Mcguire - Last Filed: 10/17/24 22:28> Medical Records Screening: Per USPSTF and CDC recommendations, given the prevalence of disease in our region, it is our hospital?s policy to screen for HIV and viral Hepatitis for all patients aged 18 and over and those with ongoing risk factors. Patricio Inquiry Pt receiving controlled substance: No Vital Signs: 10/17/24 20:28 10/17/24 22:28 Temperature 98.5 F 97.8 F Temperature Source Oral Oral Pulse Rate 76 Pulse Rate [Right] 98 H Respiratory Rate 20 16 Blood Pressure 141/76 H Blood Pressure [Right Arm] 143/101 H Blood Pressure Mean [Right Arm] 115 02 Sat by Pulse Oximetry 99 Oxygen Delivery Method Room Air Room Air Orders (Tests/Meds): ED MEDICATIONS Discontinued Medications Generic Name Dose Route Start Last Admin Trade Name Freq PRN Reason Stop Dose Admin Acetaminophen 1,000 mg 10/17/24 20:31 10/17/24 20:41 Acetaminophen 500mg Tab PO 10/17/24 20:32 1,000 mg ONCE ONE Administration Cephalexin HCl 500 mg 10/17/24 22:17 10/17/24 22:42 Cephalexin 500mg Capsule PO 10/17/24 22:18 500 mg ONCE ONE Administration Ondansetron HCl 4 mg 10/17/24 20:42 10/17/24 20:50 Ondansetron 4mg Odt SL 10/17/24 20:43 4 mg ONCE ONE Administration Tetanus/Reduced Diphtheria/Acell Pertussis 0.5 ml 10/17/24 20:38 10/17/24 22:03 Tet/Diphth/Pert-Adult 0.5ml Syringe IM 10/17/24 20:39 0.5 ml .ONCE ONE Administration ORDERS Category Date Time Status CT cervical spine wo con Stat Cat Scan 10/17/24 20:[address] head/brain wo con Stat Cat Scan 10/17/24 20:[address] lumbar spine wo con Stat Cat Scan 10/17/24 20:[address] thoracic spine wo con Stat Cat Scan 10/17/24 20:36 Completed CXR --portable [XR chest portable] Stat Exams 10/17/24 20:36 Completed Pelvis XR 1-2 views [XR pelvis 1-2V] Stat Exams 10/17/24 20:36 Completed Medical Decision Narrative: In summary patient is a 63-year-old male who presents to the emergency department for evaluation of laceration to his scalp. Patient is is hemodynamically stable with a blood pressure 143/101 pulse 98 normal sinus rhythm on the bedside monitor breathing 20 times a minute satting at 99% on room air upon arrival, afebrile at 98.5. Zickel exam is remarkable for a an 8 cm linear laceration in his scalp anterior posterior starting at the hairline anteriorly. No palpable bony deformity. He has no C-spine tenderness. Extraocular movements are intact. Pupils equal round reactive to light. Patient is awake alert and oriented with a Mauro Coma Score 15 cranial nerves II through XII are intact grossly to exam. Differential diagnosis includes si mple laceration versus closed head injury versus skull fracture versus head bleed versus the occult fracture. Initial workup will be conducted with plain film x-rays and CT scan of the head and C-spine. Initial interventions include Tylenol Zofran Tdap Keflex. Initial workup reviewed by me and my informal interpretation of his plain film imaging shows no acute fracture my pulm interpretation of his C-spine CT and noncontrasted CT scan of the head shows no acute bony injury no intracranial hemorrhage no skull fracture. Upon repeat evaluation I cleaned and prepped the wound and examined that and shows that no deep tissues are involved. I then sterilely prepped and draped and utilizing 10 cc of normal lidocaine anesthetize the wound. Skin was approximated with 12 jimmy from a staple gun. Hemostasis was controlled.. Given this patient is appropriate for discharge with close head injury precautions prescription for Keflex with first dose given here and strict return precautions. <Rupinder Lugo, DO - Last Filed: 10/18/24 00:03> Vital Signs: 10/17/24 20:28 10/17/24 22:28 Temperature 98.5 F 97.8 F Temperature Source Oral Oral Pulse Rate 76 Pulse Rate [Right] 98 H Respiratory Rate 20 16 Blood Pressure 141/76 H Blood Pressure [Right Arm] 143/101 H Blood Pressure Mean [Right Arm] 115 02 Sat by Pulse Oximetry 99 Oxygen Delivery Method Room Air Room Air Orders (Tests/Meds): ED MEDICATIONS Discontinued Medications Generic Name Dose Route Start Last Admin Trade Name Freq PRN Reason Stop Dose Admin Acetaminophen 1,000 mg 10/17/24 20:31 10/17/24 20:41 Acetaminophen 500mg Tab PO 10/17/24 20:32 1,000 mg ONCE ONE Administration Cephalexin HCl 500 mg 10/17/24 22:17 10/17/24 22:42 Cephalexin 500mg Capsule PO 10/17/24 22:18 500 mg ONCE ONE Administration Ondansetron HCl 4 mg 10/17/24 20:42 10/17/24 20:50 Ondansetron 4mg Odt SL 10/17/24 20:43 4 mg ONCE ONE Administration Tetanus/Reduced Diphtheria/Acell Pertussis 0.5 ml 10/17/24 20:38 10/17/24 22:03 Tet/Diphth/Pert-Adult 0.5ml Syringe IM 10/17/24 20:39 0.5 ml .ONCE ONE Administration ORDERS Category Date Time Status CT cervical spine wo con Stat Cat Scan 10/17/24 20:[address] head/brain wo con Stat Cat Scan 10/17/24 20:[address] lumbar spine wo con Stat Cat Scan 10/17/24 20:[address] thoracic spine wo con Stat Cat Scan 10/17/24 20:36 Completed CXR --portable [XR chest portable] Stat Exams 10/17/24 20:36 Completed Pelvis XR 1-2 views [XR pelvis 1-2V] Stat Exams 10/17/24 20:36 Completed Medical Decision Narrative: In summary patient is a 63-year-old male who presents to the emergency department for evaluation of laceration to his scalp. Patient is is hemodynamically stable with a blood pressure 143/101 pulse 98 normal sinus rhythm on the bedside monitor breathing 20 times a minute satting at 99% on room air upon arrival, afebrile at 98.5. Zickel exam is remarkable for a an 8 cm linear laceration in his scalp anterior posterior starting at the hairline anteriorly. No palpable bony deformity. He has no C-spine tenderness. Extraocular movements are intact. Pupils equal round reactive to light. Patient is awake alert and oriented with a Mauro Coma Score 15 cranial nerves II through XII are intact grossly to exam. Differential diagnosis includes simple laceration versus closed head injury versus skull fracture versus head bleed versus the occult fracture. Initial workup will be conducted with plain film x-rays and CT scan of the head and C-spine. Initial interventions include Tylenol Zofran Tdap Keflex. Initial workup reviewed by me and my informal interpretation of his plain film imaging shows no acute fracture my pulm interpretation of his C-spine CT and noncontrasted CT scan of the head shows no acute bony injury no intracranial hemorrhage no skull fracture. Upon repeat evaluation I cleaned and prepped the wound and examined that and shows that no deep tissues are involved. I then sterilely prepped and draped and utilizing 10 cc of normal lidocaine anesthetize the wound. Skin was approximated with 12 jimmy from a staple gun. Hemostasis was controlled.. Given this patient is appropriate for discharge with close head injury precautions prescription for Keflex with first dose given here and strict return precautions. Parish: I was consulted by the YARELIS, and we discussed the complexity of the problems being addressed. I approved the treatment and management plan for this patient's care in the emergency department, thus performing a substantive portion of the medical decision making. Rupinder Lugo, DO Procedures <LUIS ENRIQUE Mcguire - Last Filed: 10/17/24 22:28> Laceration Laceration 1: Site: scalp Size (cm): 8 Description: linear Depth: simple, single layer Local Anesthetic: lidocaine 1% Amount of anesthesia used (mL): 10 Pre-repair: wound explored, irrigated extensively and deep structures intact Skin layer closed with: other (12 jimmy) Critical Care <LUIS ENRIQUE Mcguire - Last Filed: 10/17/24 22:28> Critical Care Time Critical Care Time: No
[2024-10-17] MEDS: TET/DIPHTH/PERT-ADULT 0.5ML SYRINGE 0.5 ML IM (22:03)
[2024-10-17 22:28] VITALS: BP 141/76; PULSE 76; RESP 16; TEMP 36.6; O2SAT 95
[2024-10-17] MEDS: cephALEXin 500MG CAPSULE 500 MG PO (22:42)
== END 2024-10-17 22:49 | disposition home or self-care (01) ==
PROVIDERS: Emergency Provider Emergency Medicine; PCP Family Medicine
DX: S01.01XA Laceration without foreign body of scalp, initial encounter (principal); R51.9 Headache, unspecified; W01.190A Fall on same level from slipping, tripping and stumbling with subsequent striking against furniture, initial encounter; Y93.89 Activity, other specified; Y92.003 Bedroom of unspecified non-institutional (private) residence as the place of occurrence of the external cause; Z23 Encounter for immunization
CPT/HCPCS: 70450; 71045; 72125; 72128; 72131; 72170; 90471; 90715; 99284; Q0162

== ENCOUNTER 2024-10-24 12:47 | Emergency (ER) | payer MEDICARE, MEDICAID, SELFPAY ==
[2024-10-24 12:50] VITALS: BP 164/89; PULSE 97; RESP 20; TEMP 36.7; O2SAT 96; BMI 43.0
[2024-10-24 12:58] VITALS: BP 164/89; PULSE 97; RESP 20; TEMP 36.7; O2SAT 96
== END 2024-10-24 13:04 | disposition home or self-care (01) ==
LOC: UTC 12:51
PROVIDERS: Emergency Provider Nurse Practitioner Family; PCP Family Medicine
DX: Z48.02 Encounter for removal of sutures (principal)
CPT/HCPCS: G0380

== ENCOUNTER 2024-11-22 04:34 | Emergency (ER) | payer MEDICARE, MEDICAID, SELFPAY ==
[2024-11-22] VITALS (13 sets, daily range): BP systolic 148–187; BP diastolic 68–101; PULSE 75–88; RESP 10–20; TEMP 36.8; O2SAT 93–99; BMI 40.6
--- NOTE | 2024-11-22 04:25 | CT_ITS ---
PROCEDURE INFORMATION: Exam: CTA Head With Contrast, Arteriography Exam date and time: 11/22/2024 4:51 AM Age: 63 years old Clinical indication: Injury or trauma; Additional info: Trauma, critical injury suspected TECHNIQUE: Imaging protocol: Computed tomographic angiography of the head with contrast. Exam focused on the arteries. 3D rendering (Not supervised by radiologist): MIP and/or 3D reconstructed images were created by the technologist. Radiation optimization: All CT scans at this facility use at least one of these dose optimization techniques: automated exposure control; mA and/or kV adjustment per patient size (includes targeted exams where dose is matched to clinical indication); or iterative reconstruction. Contrast material: ISOVUE; Contrast volume: 80 ml; Contrast route: INTRAVENOUS (IV); COMPARISON: CT ANGIO HEAD 11/22/2024 4:51 AM FINDINGS: ANTERIOR CIRCULATION: Right internal carotid artery: Intracranial segment is patent with no significant stenosis. No aneurysm. Right middle cerebral artery: No occlusion or significant stenosis. No aneurysm. Right anterior cerebral artery: No occlusion or significant stenosis. No aneurysm. Left internal carotid artery: Intracranial segment is patent with no significant stenosis. No aneurysm. Left middle cerebral artery: No occlusion or significant stenosis. No aneurysm. Left anterior cerebral artery: No occlusion or significant stenosis. No aneurysm. POSTERIOR CIRCULATION: Right vertebral artery: No occlusion or significant stenosis. No aneurysm. Left vertebral artery: No occlusion or significant stenosis. No aneurysm. Basilar artery: No occlusion or significant stenosis. No aneurysm. Right posterior cerebral artery: No occlusion or significant stenosis. No aneurysm. Left posterior cerebral artery: No occlusion or significant stenosis. No aneurysm. Brain: No definite mass, mass effect, or midline shift. Cerebral ventricles: No ventriculomegaly. Bones/joints: Unremarkable. No acute fracture. Soft tissues: Unremarkable. IMPRESSION: No large vessel stenosis or occlusion.
--- NOTE | 2024-11-22 04:25 | CT_ITS ---
PROCEDURE INFORMATION: Exam: CT Head Without Contrast Exam date and time: 11/22/2024 4:40 AM Age: 63 years old Clinical indication: Injury or trauma; Additional info: Trauma, critical injury suspected TECHNIQUE: Imaging protocol: Computed tomography of the head without contrast. Radiation optimization: All CT scans at this facility use at least one of these dose optimization techniques: automated exposure control; mA and/or kV adjustment per patient size (includes targeted exams where dose is matched to clinical indication); or iterative reconstruction. COMPARISON: CT HEAD/BRAIN WO CON 10/17/2024 9:05 PM FINDINGS: Brain: There is diffuse prominence of the cerebral sulci, cisterns, and ventricles consistent with atrophy. No intra or extra-axial fluid collections are noted. No mass or mass effect is seen. Periventricular white matter hypoattenuation is seen consistent with chronic small vessel disease. Cerebral ventricles: No ventriculomegaly. Paranasal sinuses: Visualized sinuses are unremarkable. No fluid levels. Mastoid air cells: Visualized mastoid air cells are well aerated. Bones: Unremarkable. No acute fracture. Soft tissues: Unremarkable. IMPRESSION: No acute process noted.
--- NOTE | 2024-11-22 04:25 | CT_ITS ---
PROCEDURE INFORMATION: Exam: CTA Neck With Contrast Exam date and time: 11/22/2024 4:51 AM Age: 63 years old Clinical indication: Injury or trauma; Additional info: Trauma, critical injury suspected TECHNIQUE: Imaging protocol: Computed tomographic angiography of the neck with contrast. Exam focused on the cervical segments of the vasculature. 3D rendering (Not supervised by radiologist): MIP and/or 3D reconstructed images were created by the technologist. Radiation optimization: All CT scans at this facility use at least one of these dose optimization techniques: automated exposure control; mA and/or kV adjustment per patient size (includes targeted exams where dose is matched to clinical indication); or iterative reconstruction. Contrast material: ISOVUE; Contrast volume: 80 ml; Contrast route: INTRAVENOUS (IV); COMPARISON: CT CERVICAL SPINE WO CON 11/22/2024 4:42 AM FINDINGS: Right common carotid artery: No stenosis. No dissection or occlusion. Right internal carotid artery: No stenosis of the extracranial segment. No dissection or occlusion. Right external carotid artery: No occlusion or stenosis of the origin. Left common carotid artery: No stenosis. No dissection or occlusion. Left internal carotid artery: No stenosis of the extracranial segment. No dissection or occlusion. Left external carotid artery: No occlusion or stenosis of the origin. Right vertebral artery: No stenosis. No dissection or occlusion. Left vertebral artery: No stenosis. No dissection or occlusion. Soft tissues: Normal. No significant soft tissue swelling. Bones/joints: No acute fracture. IMPRESSION: No stenosis or occlusion. No evidence of vascular injury. REFERENCES: NASCET CRITERIA. The degree of stenosis in the cervical segment of the internal carotid artery is based on NASCET criteria. Normal is no stenosis. Mild is less than 50% stenosis. Moderate is 50-69% stenosis. Severe is 70% to 99% stenosis. Total occlusion is no detectable patent lumen.
--- NOTE | 2024-11-22 04:25 | CT_ITS ---
PROCEDURE INFORMATION: Exam: CTA Abdomen and Pelvis With Contrast Exam date and time: 11/22/2024 4:54 AM Age: 63 years old Clinical indication: Injury or trauma; Additional info: Trauma, critical injury suspected TECHNIQUE: Imaging protocol: Computed tomographic angiography of the abdomen and pelvis with contrast. Exam focused on the arteries. 3D rendering (Not supervised by radiologist): MIP and/or 3D reconstructed images were created by the technologist. Radiation optimization: All CT scans at this facility use at least one of these dose optimization techniques: automated exposure control; mA and/or kV adjustment per patient size (includes targeted exams where dose is matched to clinical indication); or iterative reconstruction. Contrast material: ISOVUE; Contrast volume: 80 ml; Contrast route: INTRAVENOUS (IV); COMPARISON: CT ANGIO ABDOMEN PELVIS 09/29/2024 9:54 PM FINDINGS: Aorta: No aortic aneurysm. No aortic dissection. Celiac trunk and mesenteric arteries: No occlusion or significant stenosis. Renal arteries: No occlusion or significant stenosis. Right iliac arteries: No occlusion or significant stenosis. Left iliac arteries: No occlusion or significant stenosis. Veins: Evidence of portal venous hypertension. Liver: The liver is nodular and cirrhotic. Gallbladder and biliary ducts: Unremarkable. No calcified stones. No ductal dilation. Pancreas: Unremarkable. No mass. No ductal dilation. Spleen: Splenomegaly. Adrenal glands: Unremarkable. No mass. Kidneys and ureters: Unremarkable. No solid mass. No hydronephrosis. Stomach and bowel: Unremarkable. No obstruction. No mucosal thickening. Appendix: No evidence of appendicitis. Intraperitoneal space: Unremarkable. No free air. No significant fluid collection. Lymph nodes: Unremarkable. No enlarged lymph nodes. Urinary bladder: Unremarkable. No mass. Reproductive: Unremarkable as visualized. Bones/joints: Degenerative disc disease with multilevel vacuum disc phenomena and disc space narrowing. Soft tissues: Unremarkable. IMPRESSION: 1. No acute traumatic injury. 2. Cirrhosis with portal venous hypertension however no ascites is present.
--- NOTE | 2024-11-22 04:25 | ECG_ITS ---
APPROVED REPORT Exam: Resting ECG HR:88 bpm ECG Measurements Heart Rate 88 AXES OR 205 P 58 QRSd 106 QRS 5 QT 377 T 61 QTc [address] depressions in septal/anterior leads with no reciprocal elevations Electronically signed by : JOE COHN, 11/22/2024 07:33:17
--- NOTE | 2024-11-22 04:25 | CT_ITS ---
PROCEDURE INFORMATION: Exam: CT Lumbar Spine Without Contrast Exam date and time: 11/22/2024 4:48 AM Age: 63 years old Clinical indication: Injury or trauma; Additional info: Trauma, critical injury suspected TECHNIQUE: Imaging protocol: Computed tomography of the lumbar spine without contrast. Radiation optimization: All CT scans at this facility use at least one of these dose optimization techniques: automated exposure control; mA and/or kV adjustment per patient size (includes targeted exams where dose is matched to clinical indication); or iterative reconstruction. COMPARISON: CT LUMBAR SPINE WO CON 11/22/2024 4:48 AM FINDINGS: Bones/joints: Degenerative disc disease with multilevel vacuum disc phenomena and disc space narrowing. This is most prominent at L1-L2, L2-L3, and L5-S1. Prominent marginal osteophytes are noted. Hypertrophic changes of the facet joints causes some mild to moderate spinal stenosis. Soft tissues: Unremarkable. IMPRESSION: 1. No evidence of acute traumatic injury. 2. Diffuse degenerative disc disease as described.
--- NOTE | 2024-11-22 04:25 | CT_ITS ---
PROCEDURE INFORMATION: Exam: CT Thoracic Spine Without Contrast Exam date and time: 11/22/2024 4:45 AM Age: 63 years old Clinical indication: Injury or trauma; Additional info: Trauma, critical injury suspected TECHNIQUE: Imaging protocol: Computed tomography of the thoracic spine without contrast. Radiation optimization: All CT scans at this facility use at least one of these dose optimization techniques: automated exposure control; mA and/or kV adjustment per patient size (includes targeted exams where dose is matched to clinical indication); or iterative reconstruction. COMPARISON: CT THORACIC SPINE WO CON 11/22/2024 4:45 AM FINDINGS: Bones/joints: Flowing marginal osteophytes are noted laterally and anteriorly. Mild kyphosis. No acute fracture or dislocation identified. Multiple marginal osteophytes are present. Soft tissues: Unremarkable. IMPRESSION: No acute traumatic injury identified.
--- NOTE | 2024-11-22 04:25 | CT_ITS ---
PROCEDURE INFORMATION: Exam: CT Cervical Spine Without Contrast Exam date and time: 11/22/2024 4:42 AM Age: 63 years old Clinical indication: Injury or trauma; Additional info: Trauma, critical injury suspected TECHNIQUE: Imaging protocol: Computed tomography of the cervical spine without contrast. Radiation optimization: All CT scans at this facility use at least one of these dose optimization techniques: automated exposure control; mA and/or kV adjustment per patient size (includes targeted exams where dose is matched to clinical indication); or iterative reconstruction. COMPARISON: CT CERVICAL SPINE WO CON 11/22/2024 4:42 AM FINDINGS: Bones/joints: No acute fracture. Normal alignment. There is straightening of cervical lordosis. There is moderate to advanced multilevel degenerative disc disease. There is mild to moderate multilevel spinal canal stenosis secondary to disc osteophyte ridging. Lungs: Lung apices are normal. Soft tissues: Unremarkable. IMPRESSION: No acute findings.
--- NOTE | 2024-11-22 04:25 | CT_ITS ---
PROCEDURE INFORMATION: Exam: CTA Chest With Contrast Exam date and time: 11/22/2024 4:54 AM Age: 63 years old Clinical indication: Injury or trauma; Additional info: Trauma, critical injury suspected TECHNIQUE: Imaging protocol: Computed tomographic angiography of the chest with contrast. Exam focused on the arteries. 3D rendering (Not supervised by radiologist): MIP and/or 3D reconstructed images were created by the technologist. Radiation optimization: All CT scans at this facility use at least one of these dose optimization techniques: automated exposure control; mA and/or kV adjustment per patient size (includes targeted exams where dose is matched to clinical indication); or iterative reconstruction. Contrast material: ISOVUE; Contrast volume: 80 ml; Contrast route: INTRAVENOUS (IV); COMPARISON: CR XR CHEST PORTABLE 10/17/2024 9:15 PM FINDINGS: Pulmonary arteries: Normal. No pulmonary emboli. Aorta: Unremarkable. No aortic aneurysm. No aortic dissection. Lungs: Unremarkable. No consolidation. No masses. Pleural spaces: Unremarkable. No pneumothorax. No pleural effusion. Heart: Unremarkable. No cardiomegaly. No pericardial effusion. Coronary arteries: Small amount of coronary calcium is present. Lymph nodes: Unremarkable. No enlarged lymph nodes. Bones/joints: Unremarkable. No acute fracture. Soft tissues: Unremarkable. IMPRESSION: No acute injury identified. A small amount of coronary calcium present.
--- NOTE | 2024-11-22 04:34 | PC.NURSE ---
PT is CT via stretcher
--- NOTE | 2024-11-22 04:39 | PC.NURSE ---
Pt in CT scan
[2024-11-22 04:40] LABS: Basophils % 0.4 % (0.1-2.0); Eosinophils # 0.1 K/mm3 (0.0-0.4); Eosinophils % 3.1 % (0.1-12.0); Hematocrit 31.2 % (42.0-52.0); Hemoglobin 8.7 g/dL (14.1-18.0); Lymphocytes # 0.6 K/mm3 (0.7-4.5); Lymphocytes % 27.1 % (10-50); Mean Corpuscular HGB Conc 27.9 g/dL (31.8-35.4); Mean Corpuscular Hemoglobin 21.8 pg (27.0-31.2); Mean Platelet Volume 10.2 fl (7.4-10.4); Monocytes # 0.2 K/mm3 (0.1-1.0); Monocytes % 10.7 % (1.7-9.3); Neutrophils # 1.3 K/mm3 (1.8-7.8); Neutrophils % 58.7 % (37.0-80.0); Platelet Count 81 K/mm3 (142-424); Red Cell Distribution Width 16.4 % (11.5-17.5); White Blood Count 2.3 K/mm3 (4.8-10.8)
[2024-11-22 04:46] LABS: Chloride 107 mmol/L (98-107)
[2024-11-22 04:47] LABS: Albumin Level 3.5 g/dl (3.5-5.0); Sodium 143 mmol/L (136-145)
[2024-11-22 04:49] LABS: Activated Partial Thrombo Time 22.9 seconds (22.5-28.5); Blood Urea Nitrogen 17 mg/dl (9-20); Estimated Glomerular Filt Rate 61 ml/min (>60); GFR (African American) 74 ML/MIN (>60); INR 1.06 (0.9-1.1); Prothrombin Time 11.5 seconds (9.2-12.1)
[2024-11-22 04:50] LABS: Alanine Aminotransferase 27 U/L (12-78); Albumin/Globulin Ratio 1.1 (1.1-1.8); Alkaline Phosphatase 157 U/L (38-126); Aspartate Amino Transferase 41 U/L (17-59); Bilirubin,Total 0.4 mg/dl (0.2-1.3); Calcium 8.5 mg/dl (8.4-10.2); Carbon Dioxide 31 mmol/L (22.0-30.0); Globulin 3.2 g/dL (1.3-3.2); Glucose 99 mg/dl (74-100); Total Protein,Serum 6.7 g/dl (6.3-8.2)
--- NOTE | 2024-11-22 05:00 | PC.NURSE ---
[address] scan without incident. AOx4, NAD noted, RR even and non labored. Generalized tremors unchanged from arrival to the ED.
[2024-11-22] MEDS: SODIUM CHLORIDE 0.9% 10ML SYR (RAD ONLY) 10 ML IV (05:01)
[2024-11-22] MEDS: 0.9 % SODIUM CHLORIDE 50 ML VIAL IV (05:01)
[2024-11-22] MEDS: IOPAMIDOL-370 (76%);100ML BOTTLE 160 ML IV (05:02)
[2024-11-22] MEDS: MORPHINE 4MG/ML SYRINGE 4 MG IV (05:12)
--- NOTE | 2024-11-22 05:20 | ED_ITS ---
Discharge Plan Disposition Patient Disposition: Home, Self-Care Prescriptions Prescriptions: New lidocaine 5 % adhesive patch,medicated 1 patch topical DAILY PRN (Reason: pain) Qty: 30 0RF Rx Instructions: leave on most painful area for up to 12 hrs No Action carvedilol 25 MG tablet 25 mg PO BID sertraline [Zoloft] 100 MG tablet 200 mg PO DAILY oxycodone-acetaminophen 1 EACH tablet 1 ea PO Q8HP PRN (Reason: pain) pantoprazole 40 MG tablet,delayed release (DR/EC) 40 mg PO DAILY gabapentin 300 MG capsule 300 mg PO DAILY furosemide 20 MG tablet 20 mg PO DAILY colchicine [Colcrys] 0.6 MG tablet 0.6 mg PO DIRECTED Rx Instructions: every other day cholecalciferol (vitamin D3) 5,000 UNIT capsule 5,000 unit PO WEEKLY vitamin E 400 UNIT capsule 400 unit PO DAILY spironolactone 50 MG tablet 50 mg PO DAILY iron 325 MG capsule, extended release 325 mg PO DAILY tizanidine [Zanaflex] 4 MG capsule 4 mg PO BID coenzyme Q10 [Co Q-10] 200 MG capsule 200 mg PO DAILY oxycodone 20 MG tablet 40 mg PO BID Xifaxan 550 MG tablet 550 mg PO DAILY amlodipine [Norvasc] 10 MG tablet 10 mg PO DAILY allopurinol 300 MG tablet 300 mg PO DAILY buspirone 15 MG tablet 15 mg PO BID cephalexin 500 mg capsule 500 mg PO BID 7 Days Qty: 14 0RF ondansetron 4 MG tablet,disintegrating 4 mg PO Q4H PRN (Reason: Nausea) Referrals Follow up/Referrals: Provider,Referral, MD [Primary Care Provider] - See instructions Activity Restrictions/Add. Instructions Additional Instructions/Restrictions: Please use Tylenol muscle relaxers and lidocaine patches as needed for pain. Please follow-up with your primary care provider. Please return to the emergency department if you develop any new or worsening symptoms or become concerned for your health. Clinical Impressions Clinical Impression: Laceration, Fall, Acute head trauma Print Language Print Language: Sinhala Discharge ED Provider: Ernie Grant General Adult HPI General Stated complaint: fall laceration Time Seen by Provider: 11/22/24 04:35 Mode of Arrival: EMS Limitations: No Limitations History of Present Illness HPI narrative: 63-year-old male with history of cirrhosis, CKD, anemia presents for fall. He reports that he thinks he was sleepwalking because he woke up after hitting his head on his dresser. He apparently fell back and hit his head. Heavy bleeding on scene per EMS, hemostatic on arrival. Patient reports primarily headache and neck pain. Denies chest pain abdominal pain shortness of breath or extremity symptoms. Related Data Home Medications ?Medication ?Instructions ?Recorded ?Confirmed allopurinol 300 mg tablet 300 mg PO DAILY gout 03/27/18 11/22/24 amlodipine 10 mg tablet (Norvasc) 10 mg PO DAILY htn 03/27/18 11/22/24 buspirone 15 mg tablet 15 mg PO BID Anxiety 03/27/18 11/22/24 carvedilol 25 mg tablet 25 mg PO BID htn 03/27/18 11/22/24 cholecalciferol (vitamin D3) 125 5,000 unit PO WEEKLY Supplement 03/27/18 11/22/24 mcg (5,000 unit) capsule coenzyme Q10 200 mg capsule (Co 200 mg PO DAILY Supplement 03/27/18 11/22/24 Q-10) colchicine 0.6 mg tablet (Colcrys) 0.6 mg PO DIRECTED gout 03/27/18 11/22/24 ferrous sulfate 325 mg (65 mg 325 mg PO DAILY Supplement 03/27/18 11/22/24 iron) capsule,extended release (iron ER) furosemide 20 mg tablet 20 mg PO DAILY Fluid 03/27/18 11/22/24 gabapentin 300 mg capsule 300 mg PO DAILY Pain 03/27/18 11/22/24 oxycodone 20 mg tablet 40 mg PO BID Pain 03/27/18 11/22/24 oxycodone-acetaminophen 10 mg-325 1 ea PO Q8HP PRN pain 03/27/18 11/22/24 mg tablet pantoprazole 40 mg tablet,delayed 40 mg PO DAILY GERD 03/27/18 11/22/24 release rifaximin 550 mg tablet (Xifaxan) 550 mg PO DAILY IBS/LIVER 03/27/18 11/22/24 sertraline 100 mg tablet (Zoloft) 200 mg PO DAILY Depression 03/27/18 11/22/24 spironolactone 50 mg tablet 50 mg PO DAILY Fluid 03/27/18 11/22/24 tizanidine 4 mg capsule (Zanaflex) 4 mg PO BID muscle spasms 03/27/18 11/22/24 vitamin E 268 mg (400 unit) capsule 400 unit PO DAILY Supplement 03/27/18 11/22/24 ondansetron 4 mg disintegrating 4 mg PO Q4H PRN Nausea 07/02/19 11/22/24 tablet Previous Rx's ?Medication ?Instructions ?Recorded cephalexin 500 mg capsule 500 mg PO BID 7 days #14 caps 10/17/24 lidocaine 5 % topical patch 1 patch topical DAILY PRN pain #30 11/22/24 ea Allergies Allergy/AdvReac Type Severity Reaction Status Date / Time No Known Allergies Allergy Verified 11/22/24 04:50 [facility] Disclaimer: The information contained in this section may have been updated after the patient was seen, as this information can be updated by other users. Social History Smoking Status: Never smoker alcohol intake: never current occupational status: disabled Travel in the last 8 weeks: None Other Medical History Have you received the Flu Vaccine for this season: No Have you received the Pneumonia Vaccine: No ROS Obtained: Yes All systems reviewed & no additional complaints except as documented Physical Exam General General appearance: alert Head Head exam: normocephalic and other (Large hematoma and laceration to the occipital scalp) Eye Eye exam: Present normal appearance, PERRL and EOMI ENT ENT exam: Present normal oropharynx and normal external ear exam Neck Neck exam: Present normal inspection and full ROM Chest Chest inspection: Present normal inspection and symmetric chest wall rise; Absent tenderness Respiratory Respiratory exam: Present normal lung sounds bilaterally; Absent respiratory distress Cardiovascular Cardiovascular exam: Present regular rate and normal rhythm Abdominal Exam Abdominal exam: Present soft and distention; Absent tenderness or guarding Extremities Exam Extremities exam: Present normal inspection; Absent edema or joint swelling Back Exam Back exam: Present normal inspection; Absent tenderness Neurological Exam Neurological exam: Present alert and oriented X3; Absent motor sensory deficit Psychiatric Psychiatric exam: Present normal affect and normal mood Skin Skin exam: Present warm, dry and normal color Lymphatic Lymphatic Findings: no adenopathy Medical Decision Making Medical Records Medical records reviewed: Yes I reviewed the patient's medical records. Screening: Per USPSTF and CDC recommendations, given the prevalence of disease in our region, it is our hospital?s policy to screen for HIV and viral Hepatitis for all patients aged 18 and over and those with ongoing risk factors. Patricio Inquiry Pt receiving controlled substance: No Patricio was queried for this patient: No Vital Signs: 11/22/24 04:35 11/22/24 05:00 11/22/24 05:00 Temperature 98.3 F Temperature Source Oral Pulse Rate 78 80 Pulse Rate [Apical] 88 Respiratory Rate 20 13 12 Blood Pressure 187/88 H 187/88 H Blood Pressure [Right Arm] 150/80 H Blood Pressure Mean [Right Arm] 103 Blood Pressure Source [Right Arm] Manual Cuff/ Auscultation Blood Pressure Position Supine Blood Pressure Position [Right Arm] Sitting 02 Sat by Pulse Oximetry 97 98 97 Oxygen Delivery Method Room Air Room Air Room Air 11/22/24 05:10 11/22/24 05:10 11/22/24 05:20 Temperature Temperature Source Pulse Rate 76 77 76 Pulse Rate [Apical] Respiratory Rate 16 15 13 Blood Pressure 165/83 H 165/83 H 172/85 H Blood Pressure [Right Arm] Blood Pressure Mean [Right Arm] Blood Pressure Source [Right Arm] Blood Pressure Position Supine Blood Pressure Position [Right Arm] 02 Sat by Pulse Oximetry 95 99 95 Oxygen Delivery Method Room Air Room Air Room Air 11/22/24 05:30 11/22/24 05:40 11/22/24 05:50 Temperature Temperature Source Pulse Rate 75 76 75 Pulse Rate [Apical] Respiratory Rate 13 18 10 L Blood Pressure 163/84 H 186/101 H 149/77 H Blood Pressure [Right Arm] Blood Pressure Mean [Right Arm] Blood Pressure Source [Right Arm] Blood Pressure Position Blood Pressure Position [Right Arm] 02 Sat by Pulse Oximetry 96 95 93 L Oxygen Delivery Method Room Air 11/22/24 06:01 Temperature Temperature Source Pulse Rate 76 Pulse Rate [Apical] Respiratory Rate 15 Blood Pressure 151/68 H Blood Pressure [Right Arm] Blood Pressure Mean [Right Arm] Blood Pressure Source [Right Arm] Blood Pressure Position Blood Pressure Position [Right Arm] 02 Sat by Pulse Oximetry 95 Oxygen Delivery Method Lab Data Lab results reviewed: Yes I reviewed the patient's lab results. Lab Results 11/22/24 04:25: WBC 2.3 L, RBC 4.00 L, Hgb 8.7 L, Hct 31.2 L, MCV 78.0 L, MCH 21.8 L, MCHC 27.9 L, RDW 16.4, Plt Count 81 L, MPV 10.2, Neut % (Auto) 58.7, Lymph % (Auto) 27.1, Spencer % (Auto) 10.7 H, Eos % (Auto) 3.1, Baso % (Auto) 0.4, Neut # (Auto) 1.3 L, Lymph # (Auto) 0.6 L, Spencer # (Auto) 0.2, Eos # (Auto) 0.1, Baso # (Auto) 0.0, PT 11.5, INR 1.06, APTT 22.9, Sodium 143, Potassium 4.0, Chloride 107, Carbon Dioxide 31 H, Anion Gap 9.0, BUN 17, Creatinine 1.20, Estimated GFR 61, Est GFR ( Amer) 74, Glucose 99, Calcium 8.5, Total Bilirubin 0.4, AST 41, ALT 27, Alkaline Phosphatase 157 H, Total Protein 6.7 D, Albumin 3.5, Globulin 3.2, Albumin/Globulin Ratio 1.1 11/22/24 04:25 11/22/24 04:25 Orders (Tests/Meds): ED MEDICATIONS Discontinued Medications Generic Name Dose Route Start Last Admin Trade Name Lanceq PRN Reason Stop Dose Admin Acetaminophen 1,000 mg 11/22/24 05:00 11/22/24 05:13 Acetaminophen 500mg Tab PO 11/22/24 05:01 Not Given ONCE ONE Iopamidol 160 ml 11/22/24 04:59 11/22/24 05:02 Iopamidol-370 (76%);100ml Bottle IV 11/22/24 05:00 160 ml ONCE ONE Administration Methocarbamol 750 mg 11/22/24 05:49 11/22/24 05:52 Methocarbamol 500mg Tablet PO 11/22/24 05:50 750 mg ONCE ONE Administration Morphine Sulfate 4 mg 11/22/24 05:00 11/22/24 05:12 Morphine 4mg/Ml Syringe IV 11/22/24 05:01 4 mg ONCE ONE Administration Sodium Chloride 50 ml 11/22/24 04:59 11/22/24 05:01 0.9 % Sodium Chloride 50 Ml Vial IV 11/22/24 05:00 50 ml ONCE ONE Administration Sodium Chloride 10 ml 11/22/24 04:59 11/22/24 05:01 Sodium Chloride 0.9% 10ml Syr (Rad Only) IV 11/22/24 05:00 10 ml ONCE ONE Administration ORDERS Category Date Time Status CT angio abdomen pelvis Stat Cat Scan 11/22/24 04:[address] angio chest - dissection Stat Cat Scan 11/22/24 04:[address] angio head Stat Cat Scan 11/22/24 04:[address] angio neck Stat Cat Scan 11/22/24 04:[address] cervical spine wo con Stat Cat Scan 11/22/24 04:[address] head/brain wo con Stat Cat Scan 11/22/24 04:[address] lumbar spine wo con Stat Cat Scan 11/22/24 04:[address] thoracic spine wo con Stat Cat Scan 11/22/24 04:25 Completed CBC w/Auto Diff [Complete Blood Count Auto Diff] Stat Lab 11/22/24 04:25 Completed CMP [Comprehensive Metabolic Panel] Stat Lab 11/22/24 04:25 Completed INR [Prothrombin Time INR] Stat Lab 11/22/24 04:25 Completed PTT [Activated Partial Thrombo Time] Stat Lab 11/22/24 04:25 Completed Medical Decision Narrative: 63-year-old male with history of nonalcoholic cirrhosis, CKD, anemia presents after a fall from standing, striking the back of his head, complaining of headache and neck pain. Patient thinks he was sleepwalking at the time of the incident. History was obtained via interactive discussion with patient, EMS. On arrival, patient is [afebrile, hemodynamically stable, satting appropriately, alert, oriented x4, GCS 15], moving all extremities spontaneously. Full physical exam performed and significant for hematoma and laceration to the occipital scalp, right paraspinal neck pain. Differential includes but is not limited to intracranial trauma intrathoracic trauma abdominal trauma spine trauma extremity trauma. Patient was given morphine for pain. Workup initiated including full trauma scans trauma labs. On re-evaluation, patient [remains afebrile, HD stable.] Laboratory workup independently interpreted by me and significant for stable pancytopenia, no significant electrolyte derangement. Imaging independently interpreted by me and significant for no evidence of intracranial bleeding or cervical fracture, no rib fracture or intra-abdominal trauma.. See radiology read for full review of final results. EKG independently interpreted by me and significant for sinus rhythm, rate of 88, no acute ST changes.. On repeat examination, patient continues to have no pain in the midline cervical spine. He does have some pain in the right lateral neck. I reviewed the CT imaging again and did not see any injuries to the area of concern. He has no neurologic abnormalities on exam. C-collar was cleared. Patient's laceration was irrigated and repaired with 2 jimmy. Patient was able to ambulate at baseline and was discharged in stable condition. Procedures Risk/Benefits of Procedure(s) Were Explained: Yes Laceration Laceration 1: Site: scalp (occipital) Size (cm): 2 Description: flap Depth: involves subcutaneous layer Pre-repair: wound explored and irrigated extensively Skin layer closed with: other (2 jimmy) Critical Care Critical Care Time Critical Care Time: Yes Attestation: On 11/22/24, the high probability of a clinically significant, sudden or life threatening deterioration of the following system(s) required my full and direct attention, intervention and personal management. The time I documented below is in addition to time spent performing reported procedures but includes the following listed in this critical care notation. Total Time Total Critical Care Time: 40
--- NOTE | 2024-11-22 05:47 | PC.NURSE ---
0538-This RN and provider at the bedside for lac repair. [place] placed. Pt C-Collar in place, sitting up in bed, NAD noted, RR even and non labored, skin pwd.
[2024-11-22] MEDS: METHOCARBAMOL 500MG TABLET 750 MG PO (05:52)
--- NOTE | 2024-11-22 06:14 | PC.NURSE ---
Pt attempt to use urinal upon request, standing with 2 RN's at his side, pt ambulates in room with some what unsteady gait. Placed back in bed with HOB raised. Pt aox4, nad noted, rr even and non labored, skin pwd.
[2024-11-22] MEDS: LIDOCAINE 5% TRANSDERMAL PATCH 1 EACH TP (06:47)
== END 2024-11-22 08:03 | disposition home or self-care (01) ==
PROVIDERS: Emergency Provider Emergency Medicine
DX: S09.90XA Unspecified injury of head, initial encounter (principal); S01.01XA Laceration without foreign body of scalp, initial encounter; R51.9 Headache, unspecified; M54.2 Cervicalgia; W01.190A Fall on same level from slipping, tripping and stumbling with subsequent striking against furniture, initial encounter; Y93.89 Activity, other specified; Y92.003 Bedroom of unspecified non-institutional (private) residence as the place of occurrence of the external cause
CPT/HCPCS: 70450; 70496; 70498; 71275; 72125; 72128; 72131; 74174; 80053; 85025; 85610; 85730; 93005; 96374; 99291; J2270; Q9967

== ENCOUNTER 2024-12-06 14:16 | Outpatient (CLI) | payer MEDICARE, MEDICAID, SELFPAY ==
--- NOTE | 2024-12-06 14:18 | MR_ITS ---
FINAL REPORT TECHNIQUE: Multiplanar MR without gadolinium enhancement CLINICAL HISTORY: DEGENERATION/LOWER EXTREMITY PAIN, RIGHT LEG COMPARISON: None FINDINGS: Sagittal images show normal vertebral height. Alignment is normal. There is diffuse decreased signal throughout the bone marrow. This may represent marrow infiltration secondary to neoplasm, hematologic disease, or myelofibrosis. No pathologic fracture is identified. L1-2: A mild annular bulge is present along with mild canal stenosis. L2-3: A moderate annular bulge is present with moderate central canal stenosis and moderate neural foraminal narrowing. L3-4: A moderate annular bulge is present with moderate central canal stenosis and moderate neural foraminal narrowing. L4-5: A moderate annular bulge is present with moderate central canal stenosis and moderate neural foraminal narrowing. L5-S1: A moderate annular bulge is present with a presumed laminectomy and moderate bilateral neural foraminal narrowing. IMPRESSION: Diffuse abnormal decreased marrow signal, which may be secondary to marrow infiltration secondary to neoplasm, hematologic disease, or myelofibrosis. Multilevel degenerative disc disease as described. Reviewed, Interpreted and Dictated by Cory Soriano MD Transcribed by Usha Lennon Authenticated and [facility]
== END 2024-12-06 23:59 | disposition home or self-care (01) ==
LOC: RAD 14:16
PROVIDERS: Visit Provider Family Medicine
DX: M51.362 Other intervertebral disc degeneration, lumbar region with discogenic back pain and lower extremity pain (principal)
CPT/HCPCS: 72148

== ENCOUNTER 2024-12-20 09:05 | Outpatient (CLI) | payer MEDICARE, MEDICAID, SELFPAY ==
--- NOTE | 2024-12-20 09:08 | FL_ITS ---
FINAL REPORT CLINICAL HISTORY: IRON DEFICIENCY ANEMIA SECONDARY TO BLOOD LOSS fluoro time 1:13 mGy 160.99 FINDINGS: SMALL BOWEL FOLLOW THROUGH HISTORY: . Iron deficient anemia. PROCEDURE: The patient ingested barium. Spot and overhead films were obtained. FINDINGS: The impregnator electrolytic capacitors film is unremarkable. The transit time to the colon is normal. The mucosal fold pattern is normal. Spot images of the terminal ileum are unremarkable. Fluoro time: 1 minute 13 seconds Radiation exposure in Reference air Kerma: 160.99 mGy. IMPRESSION: Normal small bowel follow-through. Films reviewed , interpreted and dictated by Dr. Soriano. Transcribed by Aydin Fairbanks PA-C. Reviewed, Interpreted and Dictated by Cory Soriano MD Transcribed by LUIS ENRIQUE Boyle Authenticated and [facility]
[2024-12-20] MEDS: DIATRIZOATE MEGLUMINE(GASTROGRAFIN) 66%-10% 120ML 120 ML PO (12:36)
[2024-12-20] MEDS: BARIUM SULFATE(LIQUID E-Z-PAQUE);355ML BOTTLE 355 ML PO (12:36)
== END 2024-12-20 23:59 | disposition home or self-care (01) ==
LOC: RAD 09:07
PROVIDERS: PCP Family Medicine; Visit Provider Physician Assistant
DX: D50.0 Iron deficiency anemia secondary to blood loss (chronic) (principal)
CPT/HCPCS: 74250; Q9963

== ENCOUNTER 2025-01-14 16:47 | Inpatient (IN) | payer MEDICARE, MEDICAID, SELFPAY ==
[2025-01-14] VITALS (39 sets, daily range): BP systolic 123–163; BP diastolic 63–92; PULSE 74–101; RESP 11–22; TEMP 36.7–37; O2SAT 88–99; BMI 42.3; BMI 43.0
--- NOTE | 2025-01-14 16:51 | ED_ITS ---
Discharge Plan Disposition Patient Disposition: Admitted Condition: Fair Clinical Impressions Clinical Impression: Acute upper gastrointestinal bleeding, Symptomatic anemia, Cirrhosis Discharge ED Provider: Rupinder Lugo General Adult HPI General Chief complaint: GI Bleed Stated complaint: GI Bleed Time Seen by Provider: 01/14/25 16:49 Mode of Arrival: EMS Source of Information: Patient and EMS Description of Symptoms (Recalled from ER Triage Doc. by RN): pt has 1 black bloody stool this am. has a history of a GI bleed x3. reports having a sense of fullness in his abdomen. History of Present Illness HPI narrative: This patient is a 64-year-old male with a history of cirrhosis, esophageal varices with prior GI bleeds, CKD 3 presented to the emergency department for evaluation with concern for shortness of breath, general weakness, fatigue, abdominal discomfort, and blood in his stools. Patient reports that he has been feeling off for about a week. He notes that he follows with Berto Jones in [place] for GI and has an appointment later this week, but today he started feeling much worse prompting him to call EMS. He states that his abdomen feels distended and tense and he is not able to eat or drink very much. He also notes that he had a very large black bowel movement today concerning for GI bleed. He notes that his had to have banding multiple times in the past and was left flighted out of here back in September for GI bleed. He states he required 7 units of blood at that time. He reports nausea but denies any vomiting. Related Data Home Medications ?Medication ?Instructions ?Recorded ?Confirmed allopurinol 300 mg tablet 300 mg PO DAILY gout 03/27/18 01/14/25 amlodipine 10 mg tablet (Norvasc) 10 mg PO DAILY htn 03/27/18 01/14/25 buspirone 15 mg tablet 15 mg PO BID Anxiety 03/27/18 01/14/25 carvedilol 25 mg tablet 25 mg PO BID htn 03/27/18 01/14/25 colchicine 0.6 mg tablet (Colcrys) 0.6 mg PO DAILY gout 03/27/18 01/14/25 ferrous sulfate 325 mg (65 mg 325 mg PO DAILY Supplement 03/27/18 01/14/25 iron) capsule,extended release (iron ER) gabapentin 300 mg capsule 300 mg PO TID Pain 03/27/18 01/14/25 oxycodone 20 mg tablet 40 mg PO BID Pain 03/27/18 01/14/25 oxycodone-acetaminophen 10 mg-325 1 ea PO Q8HP PRN pain 03/27/18 01/14/25 mg tablet pantoprazole 40 mg tablet,delayed 40 mg PO DAILY GERD 03/27/18 01/14/25 release sertraline 100 mg tablet (Zoloft) 200 mg PO DAILY Depression 03/27/18 01/14/25 spironolactone 50 mg tablet 50 mg PO DAILY Fluid 03/27/18 01/14/25 tizanidine 4 mg capsule (Zanaflex) 4 mg PO NEEDED PRN spasms 03/27/18 01/14/25 ondansetron 4 mg disintegrating 4 mg PO Q4H PRN Nausea 07/02/19 01/14/25 tablet Allergies Allergy/AdvReac Type Severity Reaction Status Date / Time No Known Allergies Allergy Verified 01/14/25 21:24 [facility] Disclaimer: The information contained in this section may have been updated after the patient was seen, as this information can be updated by other users. Medical History (Updated 01/14/25 @ 21:34 by Luh De La Torre RN) Chronic anemia CKD (chronic kidney disease) Esophageal varices GI (gastrointestinal bleed) History of gastroesophageal reflux (GERD) Cirrhosis Social History Smoking Status: Never smoker alcohol intake: never current occupational status: disabled Travel in the last 8 weeks: None Have you lived/traveled outside [place] in past 30 days?: No Contact w/someone who lives/traveled outside US past 30 days?: No Exposure to someone with infectious disease in past 14 days?: No Do you have a fever (greater than 100.4 F or 38 C)?: No Have you tested positive for COVID-19: No Exposed to someone with COVID-19 in past 14 days?: No Do you have a sore throat?: No Do you have a cough?: No Do you have any weakness?: No Do you have any diarrhea?: No Are you experiencing any unusual bleeding?: No Do you have any muscle aches/pain?: No Do you have any abdominal pain?: No Are you experiencing loss of taste or smell?: No Other Medical History Have you received the Flu Vaccine for this season: No Have you received the Pneumonia Vaccine: No ROS Obtained: Yes All systems reviewed & no additional complaints except as documented Physical Exam General General appearance: alert and in no apparent distress Head Head exam: atraumatic and normocephalic Eye Eye exam: Present normal appearance, PERRL and EOMI ENT ENT exam: Present normal exam, normal oropharynx, mucous membranes moist and normal external ear exam Neck Neck exam: Present normal inspection, full ROM and trachea midline; Absent tenderness Chest Chest inspection: Present normal inspection and symmetric chest wall rise; Absent tenderness Respiratory Respiratory exam: Present normal lung sounds bilaterally; Absent respiratory distress, wheezes, stridor or accessory muscle use Cardiovascular Cardiovascular exam: Present normal rhythm and tachycardia Abdominal Exam Abdominal exam: Present soft, distention and tenderness (Epigastric); Absent guarding, rebound or rigidity Extremities Exam Extremities exam: Present normal inspection, full ROM and normal capillary refill; Absent tenderness or edema Back Exam Back exam: Present normal inspection and full ROM; Absent tenderness Neurological Exam Neurological exam: Present alert, oriented X3, CN II-XII intact and normal gait; Absent motor sensory deficit Psychiatric Psychiatric exam: Present normal affect and normal mood Skin Skin exam: Present warm, dry and pallor Medical Decision Making Medical Records Medical records reviewed: Yes I reviewed the patient's medical records. Screening: Per USPSTF and CDC recommendations, given the prevalence of disease in our region, it is our hospital?s policy to screen for HIV and viral Hepatitis for all patients aged 18 and over and those with ongoing risk factors. Patricio Inquiry Pt receiving controlled substance: No Vital Signs: 01/14/25 16:46 01/14/25 17:01 01/14/25 17:30 Temperature 98.4 F Temperature Source Oral Pulse Rate 101 H 88 Pulse Rate [Right] 99 H Respiratory Rate 22 TAR Vitals Timing Blood Pressure 133/77 Blood Pressure [Right Arm] 139/63 Blood Pressure Mean 87 Blood Pressure Mean [Right Arm] 88 Blood Pressure Position 02 Sat by Pulse Oximetry 95 96 93 L Oxygen Delivery Method Room Air Oxygen Flow Rate (LPM) 01/14/25 18:30 01/14/25 18:34 01/14/25 18:35 Temperature 98.4 F Temperature Source Tympanic Pulse Rate 86 87 83 Pulse Rate [Right] Respiratory Rate 18 TAR Vitals Timing Pre-Blood Vitals Blood Pressure 159/84 H 142/78 H 142/78 H Blood Pressure [Right Arm] Blood Pressure Mean 99 Blood Pressure Mean [Right Arm] Blood Pressure Position 02 Sat by Pulse Oximetry 94 L 93 L 99 Oxygen Delivery Method Oxygen Flow Rate (LPM) 01/14/25 18:55 01/14/25 18:59 01/14/25 19:00 Temperature 98.2 F 98.6 F Temperature Source Tympanic Tympanic Pulse Rate 83 84 83 Pulse Rate [Right] Respiratory Rate 20 14 18 TAR Vitals Timing Start Vitals 5 Minute Blood Pressure 152/81 H 152/81 H 150/78 H Blood Pressure [Right Arm] Blood Pressure Mean 104 102 Blood Pressure Mean [Right Arm] Blood Pressure Position 02 Sat by Pulse Oximetry 97 97 97 Oxygen Delivery Method Oxygen Flow Rate (LPM) 01/14/25 19:03 01/14/25 19:05 01/14/25 19:06 Temperature 98.3 F Temperature Source Tympanic Pulse Rate 83 82 80 Pulse Rate [Right] Respiratory Rate 15 17 11 L TAR Vitals Timing 10 Minute Blood Pressure 150/78 H 142/88 H 142/88 H Blood Pressure [Right Arm] Blood Pressure Mean 106 Blood Pressure Mean [Right Arm] Blood Pressure Position 02 Sat by Pulse Oximetry 97 99 97 Oxygen Delivery Method Oxygen Flow Rate (LPM) 01/14/25 19:10 01/14/25 19:10 01/14/25 19:25 Temperature 98.4 F 98.4 F Temperature Source Tympanic Pulse Rate 82 79 82 Pulse Rate [Right] Respiratory Rate 16 16 21 TAR Vitals Timing 15 Minute 30 Minute Blood Pressure 145/75 H 145/75 H 148/84 H Blood Pressure [Right Arm] Blood Pressure Mean 98 105 Blood Pressure Mean [Right Arm] Blood Pressure Position 02 Sat by Pulse Oximetry 97 95 98 Oxygen Delivery Method Oxygen Flow Rate (LPM) 01/14/25 19:26 01/14/25 19:30 01/14/25 19:40 Temperature 98.2 F Temperature Source Oral Pulse Rate 80 79 79 Pulse Rate [Right] Respiratory Rate 15 15 16 TAR Vitals Timing 45 Minute Blood Pressure 148/84 H 158/86 H 144/81 H Blood Pressure [Right Arm] Blood Pressure Mean 102 Blood Pressure Mean [Right Arm] Blood Pressure Position Supine 02 Sat by Pulse Oximetry 98 98 95 Oxygen Delivery Method Oxygen Flow Rate (LPM) 04/15/25 19:44 01/14/25 19:55 01/14/25 20:00 Temperature 98.4 F Temperature Source Oral Pulse Rate 76 77 Pulse Rate [Right] Respiratory Rate 16 14 16 TAR Vitals Timing 60 Minute Blood Pressure 144/81 H 143/77 H 143/81 H Blood Pressure [Right Arm] Blood Pressure Mean 99 Blood Pressure Mean [Right Arm] Blood Pressure Position Supine 02 Sat by Pulse Oximetry 94 L 97 Oxygen Delivery Method Oxygen Flow Rate (LPM) 01/14/25 20:03 01/14/25 20:15 01/14/25 20:29 Temperature Temperature Source Pulse Rate 77 77 Pulse Rate [Right] Respiratory Rate 16 15 TAR Vitals Timing Blood Pressure 143/77 H 144/83 H Blood Pressure [Right Arm] Blood Pressure Mean Blood Pressure Mean [Right Arm] Blood Pressure Position 02 Sat by Pulse Oximetry 95 94 L 88 L Oxygen Delivery Method Room Air Oxygen Flow Rate (LPM) 01/14/25 20:29 01/14/25 20:30 01/14/25 20:35 Temperature Temperature Source Pulse Rate 77 77 Pulse Rate [Right] 80 Respiratory Rate 18 16 TAR Vitals Timing Blood Pressure 163/92 H 161/86 H Blood Pressure [Right Arm] Blood Pressure Mean Blood Pressure Mean [Right Arm] Blood Pressure Position 02 Sat by Pulse Oximetry 90 L 96 96 Oxygen Delivery Method Nasal Cannula Oxygen Flow Rate (LPM) 2 01/14/25 20:35 01/14/25 20:43 01/14/25 21:00 Temperature 98.2 F 98.1 F Temperature Source Oral Pulse Rate 75 79 Pulse Rate [Right] Respiratory Rate 13 16 TAR Vitals Timing Completion Vitals Blood Pressure 163/92 H 161/86 H Blood Pressure [Right Arm] Blood Pressure Mean 115 Blood Pressure Mean [Right Arm] Blood Pressure Position Supine 02 Sat by Pulse Oximetry 96 Oxygen Delivery Method Room Air Nasal Cannula Oxygen Flow Rate (LPM) 2 Lab Data Lab results reviewed: Yes I reviewed the patient's lab results. Lab Results 01/14/25 16:40: WBC 2.1 L, RBC 3.05 L, Hgb 6.7 L*, Hct 24.4 L, MCV 80.0, MCH 22.0 L, MCHC 27.5 L, RDW 18.6 H, Plt Count 74 L, MPV 11.0 H, Neut % (Auto) 70.5, Lymph % (Auto) 18.4, [place] % (Auto) 8.2, Eos % (Auto) 1.9, Baso % (Auto) 0.5, N eut # (Auto) 1.5 L, Lymph # (Auto) 0.4 L, [place] # (Auto) 0.2, Eos # (Auto) 0.0, Baso # (Auto) 0.0, PT 12.2, INR 1.10, APTT 23.9, Sodium 140, Potassium 3.9, Chloride 104, Carbon Dioxide 28, Anion Gap 11.9, BUN 20, Creatinine 1.10, Estimated Creat Clear 73, Estimated GFR 68, Est GFR ( Amer) 82, Glucose 110 H, Calcium 8.5, Total Bilirubin 0.7, AST 47, ALT 27, Alkaline Phosphatase 131 H, Total Protein 6.6, Albumin 3.3 L, Globulin 3.3 H, Albumin/Globulin Ratio 1.0 L, Lipase 68 01/14/25 16:43: HCV Ab GHAZAL w/Rflx PCR Qn Negative 01/14/25 16:46: VBG pH 7.42 H, VBG pCO2 42.7, VBG pO2 42.2 H, VBG HCO3 26.8, VBG Total CO2 28.1 H, VBG O2 Saturation 75.5 H, VBG Base Excess 2.3, VBG Lactic Acid 2.5 H 01/14/25 16:52: Lactate 2.1, Blood Type O Positive, Antibody Screen Negative, Crossmatch (AHG) See Detail 01/14/25 16:40 01/14/25 16:40 Orders (Tests/Meds): ED MEDICATIONS Generic Name Dose Route Start Last Admin Trade Name Freq PRN Reason Stop Dose Admin Octreotide Acetate 500 mcg/ 255 mls @ 25.5 mls/hr 01/14/25 16:45 01/14/25 18:16 Sodium Chloride IV 02/13/25 16:44 25.5 mls/hr .Q10H MERLINE Administration 50 MCG/HR Sodium Chloride 250 mls @ 25 mls/hr 01/14/25 17:15 Sod Chlor 0.9% 250ml Bag IV 01/15/25 17:14 .Q10H MERLINE Sodium Chloride 1,000 mls @ 75 mls/hr 01/14/25 20:15 Sod Chlor 0.9% 1000ml Bag IV 02/13/25 20:14 .[id number] [facility] Ondansetron HCl 4 mg 01/14/25 20:04 01/14/25 21:11 Ondansetron 4mg/2ml Vial IV 02/13/25 20:03 4 mg Q4HP PRN Administration Nausea And Vomiting Discontinued Medications Generic Name Dose Route Start Last Admin Trade Name Freq PRN Reason Stop Dose Admin Pantoprazole Sodium 80 mg/ 100 mls @ 100 mls/hr 01/14/25 16:42 01/14/25 17:25 Sodium Chloride IV 01/14/25 17:41 100 mls/hr ONCE ONE Administration Ceftriaxone Sodium 1 gm/ 50 mls @ 100 mls/hr 01/14/25 16:43 01/14/25 17:18 Sodium Chloride IV 01/14/25 17:12 100 mls/hr ONCE ONE Administration Octreotide Acetate 50 mcg/ 50.5 mls @ 101 mls/hr 01/14/25 16:44 01/14/25 17:33 Sodium Chloride IV 01/14/25 16:45 101 mls/hr ONCE ONE Administration Sodium Chloride 1,000 mls @ 999 mls/hr 01/14/25 16:45 01/14/25 17:38 Sod Chlor 0.9% 1000ml Bag IV 01/14/25 17:45 999 mls/hr .Q1H1M ONE Administration Iopamidol 80 ml 01/14/25 17:53 01/14/25 18:27 Iopamidol-370 (76%);100ml Bottle IV 01/14/25 17:54 Not Given ONCE ONE Iopamidol 90 ml 01/14/25 18:03 01/14/25 18:27 Iopamidol-370 (76%);100ml Bottle IV 01/14/25 18:04 90 ml ONCE ONE Administration Ondansetron HCl 4 mg 01/14/25 16:45 01/14/25 17:19 Ondansetron 4mg/2ml Vial IV 01/14/25 16:46 4 mg ONCE ONE Administration Sodium Chloride 10 ml 01/14/25 17:53 01/14/25 18:06 Sodium Chloride 0.9% 10ml Syr (Rad Only) IV 01/14/25 17:54 10 ml ONCE ONE Administration Sodium Chloride 50 ml 01/14/25 17:53 01/14/25 18:05 0.9 % Sodium Chloride 50 Ml Vial IV 01/14/25 17:54 50 ml ONCE ONE Administration Sodium Chloride 10 ml 01/14/25 18:03 01/14/25 18:25 Sodium Chloride 0.9% 10ml Syr (Rad Only) IV 01/14/25 18:04 Not Given ONCE ONE Sodium Chloride 50 ml 01/14/25 18:03 01/14/25 18:25 0.9 % Sodium Chloride 50 Ml Vial IV 01/14/25 18:04 Not Given ONCE ONE ORDERS Category Date Time Status Blood transfusion [Red Blood Cells] Stat BBK 01/14/25 16:52 Completed Type and Screen Stat BBK 01/14/25 16:[address] angio abd/pel - GI Bleed Stat Cat Scan 01/14/25 17:24 Completed Gastroenterology Consult [Consult to Gastroenterology] Cons 01/14/25 19:37 Active [CONS] Routine Basic Metabolic Panel AMLAB Lab 01/15/25 06:00 Ordered Basic Metabolic Panel AMLAB Lab 01/16/25 06:00 Ordered Basic Metabolic Panel AMLAB Lab 01/17/25 06:00 Ordered Basic Metabolic Panel AMLAB Lab 01/18/25 06:00 Ordered Basic Metabolic Panel AMLAB Lab 01/19/25 06:00 Ordered Complete Blood Count Auto Diff Q6 Lab 01/14/25 23:00 Ordered Complete Blood Count Auto Diff Q6 Lab 01/15/25 05:00 Ordered Complete Blood Count Auto Diff Q6 Lab 01/15/25 11:00 Ordered Complete Blood Count Auto Diff Q6 Lab 01/15/25 17:00 Ordered Complete Blood Count Auto Diff Stat Lab 01/14/25 16:40 Completed Comprehensive Metabolic Panel Stat Lab 01/14/25 16:40 Completed Hepatitis C Ab Qual. W/ RFX Stat Lab 01/14/25 16:43 Completed Lactic Acid Follow Up (RFLX 1) Stat Lab 01/14/25 21:13 Completed Lactic Acid Stat Lab 01/14/25 16:52 Completed Lipase Stat Lab 01/14/25 16:40 Completed Magnesium AMLAB Lab 01/15/25 06:00 Ordered PT INR [Prothrombin Time INR] Stat Lab 01/14/25 16:40 Completed PTT [Activated Partial Thrombo Time] Stat Lab 01/14/25 16:40 Completed Phosphorous AMLAB Lab 01/15/25 06:00 Ordered VBG [Venous Blood Gas] Stat RT 01/14/25 16:46 Completed ECG Data Tracing #1: I reviewed this ECG and interpreted as documented below: Normal sinus rhythm with a ventricular rate of [address] changes concerning for STEMI. Nonspecific changes that are not significantly different from prior EKG. ECG initial impression date: 01/14/25 ECG initial impression time: 17:09 Medical Decision Narrative: In summary, this patient is a 64-year-old male presenting to the Emergency Department for evaluation of general weakness, fatigue, upper abdominal discomfort, bloody bowel movement. Differential diagnoses considered include but are not limited to bleeding esophageal varices, symptomatic anemia, hemorrhagic shock, peptic ulcer disease with bleeding, coagulopathy. Ruling out the most morbid conditions drove assessment. It should be noted patient's history includes cirrhosis, CKD, chronic anemia which likely are not at goal therapy. This complicates all aspects of care by increasing patient's risk for morbidity. I reviewed patient's past medical records and noted prior evaluation in September for GI bleed. Patient was unstable requiring multiple blood transfusions at that time, was flown to for further evaluation and management. On exam, the patient is lying in bed, pale, ill-appearing. He is tachycardic with heart rate in the low 100s. Blood pressure initially is normal. He has some abdominal distention with upper abdominal tenderness, no rebound or guarding. Workup included CBC, CMP, lipase, lactic acid, VBG, coags, EKG. He was given a bolus of IV fluids as well as IV PPI, IV octreotide, and IV Rocephin given his history of esophageal varices with variceal bleeding in the past. I independently interpreted CT angiogram of the abdomen and pelvis prior to the radiologist read and noted some mild intestinal wall thickening. Please see their read for final interpretation. I had an interactive discussion with radiology who advised concern for possible diverticular bleed with small amount of contrast blush of the diverticulum in the hepatic flexure, but no pooling of contrast. Labs were obtained that demonstrated anemia with a hemoglobin of 6.7. He also has chronic leukopenia and thrombocytopenia with a platelet count of 74. Lactic acid is very mildly elevated. Chemistry is reassuring with normal liver enzymes, normal bilirubin, normal kidney function. EKG obtained is reassuring.. On multiple subsequent reassessments, the patient is resting comfortably and is hemodynamically stable. He has had no further bloody bowel movements and no episodes of hematemesis since arrival to the emergency department. His blood pressure improved after volume resuscitation. He was given 2 units of blood given his anemia and concern for GI bleeding. I had an indirect discussion with GI who recommended continue octreotide drip and they would evaluate in the morning. I had an interactive discussion with the hospitalist who accepted the patient for admission in the meantime. Patient was admitted in stable condition for GI bleed Critical Care Critical Care Time Critical Care Time: Yes Attestation: On 01/14/25, the high probability of a clinically significant, sudden or life threatening deterioration of the following system(s) required my full and direct attention, intervention and personal management. The time I documented below is in addition to time spent performing reported procedures but includes the following listed in this critical care notation. Total Time Total Critical Care Time: 45
[2025-01-14 16:52] LABS: VBG Base Excess 2.3 mmol/L (-2.4-2.3); VBG HCO3 26.8 mmol/L (23-30); VBG Oxygen Saturation 75.5 % (50-70); VBG PCO2 42.7 mmol/L (35-51); VBG PH 7.42 mmol/L (7.31-7.41); VBG PO2 42.2 mmol/L (28-40); VBG Total CO2 28.1 mmol/L (23-27)
[2025-01-14 16:53] LABS: Lactate Venous 2.5 mmol/L (0.4-2.0)
--- OUTSIDE RECORDS SUMMARY | 2025-01-14 16:55 | XMS_ITS | Continuity of Care Document ---
Author Organization [facility] Phone Care Team Providers Care Tip Scourer Name Role Phone BRAN AGUAYO Unavailable BRAN AGUAYO Primary Attending AGUSTIN WARD Primary Care BRAN AGUAYO Admitting DARI NI Surgeon Unavailable ALLERGIES AND ADVERSE REACTIONS ALLERGIES AND ADVERSE REACTIONS Code System Allergy Substance Adverse Reaction Date Reaction (Severity) Comment Status Reported By Updated By [id number] RXNorm Celebrex Adverse reaction to substance fluid retention active [id number] on November 01, 2024 9:05:32 PM UTC ASSESSMENTS Anemia ; FAMILY HISTORY RELATION: Father Status: Cause of : Malignant tumor of stomach Age at : 60 SNOMED-CT Diagnosis Age At Onset [id number] Hypertensive disorder [id number] Smoker [id number] Alcoholism RELATION: Mother Status: Cause of : Unknown Age at : 74 SNOMED-CT Diagnosis Age At Onset [id number] Chronic obstructive lung disease PROBLEMS PATIENT PROBLEMS Code Description/Comments Category Status Upda kilo By [id number] Anemia active [id number] on Dec 1:47:46 PM UTC RESULTS Patient: GREG Rees Date of : December 27 1 LABORATORY RESULTS ORDER 300: PT PROTHROMBIN TI ME W INR (LOINC: 65251-8) ORDER DATE: January 09, 2025 11:43:00 AM UTC Specimen Source: PLASMA Specimen Type: Plasma specim en PERFORMING LAB: [address] [id number] Result Comment: Final Result Date: January 09, 2025 12:05:00 PM UTC (TECH: ARR) LOINC TEST [place] [address]-6 INR in Platelet poor plasma or blood by Coagulation assay N 11.2 SECONDS 9.3 SECONDS - 11.4 SECONDS January 09, 2025 12:05:00 PM UTC (TECH: ARR) 6301-6 INR in Platelet poor plasma by Coagulation assay H 1.1 Ratio 0.97 Ratio - 1.05 Ratio January 09, 2025 12:05:00 PM UTC (TECH: ARR) ORDER 400: PTT PARTIAL THROM B TIME (LOINC: 3173-2) ORDER DATE: January 09, 2025 11:43:00 AM UTC Specimen Source: PLASMA Specimen Type: Plasma specim en PERFORMING LAB: [address] [id number] Result Comment: Final Result Date: January 09, 2025 12:05:00 PM UTC (TECH: ARR) LOINC TEST FLAG RESULT REFERENCE RANGE UPDA KILO BY 3173-2 Activated partial thromboplastin time (aPTT) in Blood by Coagulation assay L 23.1 SECONDS 24.5 SECONDS - 32.8 SECONDS January 09, 2025 12:05:00 PM UTC (TECH: ARR) ORDER 500: CBC AUTO W DIFF ( LOINC: 20811-8) ORDER DATE: January 09, 2025 11:48:00 AM UTC Specimen Source: EDTA Specimen Type: Blood specime n with EDTA PERFORMING LAB: [address] [id number] Result Comment: Final Result Date: January 09, 2025 12:01:00 PM UTC (TECH: ARR) LOINC TEST FLAG RESULT REFERENCE RANGE UPDA KILO BY 6690-2 Leukocytes [#/volume ] in Blood by Automated count L 2.4 K/ul 4.0 K/ul - 10.5 K/ul January 09, 2025 12:01:00 PM UTC (TECH: ARR) 789-8 Erythrocytes [#/volu me] in Blood by Automated count L 3.1 M/mm3 4.7 M/mm3 - 6.1 M/mm3 January 09, 2025 12:01:00 PM UTC (TECH: ARR) 718-7 Hemoglobin [Mass/volume] in Blood L 7.0 gm/dl 13.5 gm/dl - 18.0 gm/dl January 09, 2025 12:01:00 PM UTC (TECH: ARR) 83731-1 Hematocrit [Volume Fraction] of Blood LL 24.9 % 42.0 % - 52.0 % January 09 12:01:00 PM UTC (TECH: ARR) 787-2 Erythrocyte mean corpuscular volume [Entitic volume] by Automated count N 81.1 fl 78 fl - 100 fl January 09, 2025 12:01:00 PM UTC (TECH: ARR) 785-6 Erythrocyte mean corpuscular hemoglobin [Entitic mass] by Automated count L 22.8 pg 27 pg - 31 pg January 09, 2025 12:01:00 PM UTC (TECH: ARR) 786-4 Erythrocyte mean corpuscular hemoglobin concentration [Mass/volume] by Automated count L 28.1 g/dl 32 g/dl - 36 g/dl January 09, 2025 12:01:00 PM UTC (TECH: ARR) 25207-2 Erythrocyte distribution width [Ratio] H 19.2 % 11.5 % - 14.0 % January 09, 2025 12:01:00 PM UTC (TECH: ARR) 777-3 Platelets [#/volume] in Blood by Automated count L 79 K/ul 150 K/ul - 450 K/ul January 09 12:01:00 PM UTC (TECH: ARR) 81149-6 Platelet mean volume [Entitic volume] in Blood by Automated count H 11.7 fl 6 fl - 9.5 fl January 09, 2025 12:01:00 PM UTC (TECH: ARR) 94102-1 Neutrophils/100 leukocytes in Blood H 70.9 % 43 % - 65 % January 09 12:01:00 PM UTC (TECH: ARR) 736-9 Lymphocytes/100 leukocytes in Blood by Automated count L 18.6 % 20.5 % - 45.5 % January 09, 2025 12:01:00 PM UTC (TECH: ARR) 5905-5 Monocytes/100 leukocytes in Blood by Automated count N 6.3 % 5.5 % - 11.7 % January 09, 2025 12:01:00 PM UTC (TECH: ARR) 713-8 Eosinophils/100 leukocytes in Blood by Automated count H 3.4 % 0.9 % - 2.9 % January 09, 2025 12:01:00 PM UTC (TECH: ARR) 706-2 Basophils/100 leukocytes in Blood by Automated count N 0.4 % 0.2 % - 1.0 % January 09, 2025 12:01:00 PM UTC (TECH: ARR) 96231-8 Immature granulocytes/100 leukocytes in Blood by Automated count N 0.4 % 0.0 % - 0.8 % January 09, 2025 12:01:00 PM UTC (TECH: ARR) 03845-6 Nucleated cells [#/volume] in Blood N 0.0 % January 09 12:01:00 PM UTC (TECH: ARR) 61622-6 Neutrophils [#/volum e] in Blood L 1.7 K/uL 2.2 K/uL - 4.8 K/uL January 09 12:01:00 PM UTC (TECH: ARR) 731-0 Lymphocytes [#/volum e] in Blood by Automated count L 0.4 CELL/MCL 1.3 CELL/MCL - 2.9 CELL/MCL January 09, 2025 12:01:00 PM UTC (TECH: ARR) 742-7 Monocytes [#/volume] in Blood by Automated count L 0.2 CELL/MCL 0.3 CELL/MCL - 0.8 CELL/MCL January 09, 2025 12:01:00 PM UTC (TECH: ARR) 711-2 Eosinophils [#/volum e] in Blood by Automated count N 0.1 CELL/MCL 0 CELL/MCL - 0.2 CELL/MCL January 09, 2025 12:01:00 PM UTC (TECH: ARR) 704-7 Basophils [#/volume] in Blood by Automated count N 0.0 CELL/MCL 0.0 CELL/MCL - 1.0 CELL/MCL January 09, 2025 12:01:00 PM UTC (TECH: ARR) 24104-4 Immature granulocyte s [#/volume] in Blood N 0.01 K/ul January 09 12:01:00 PM UTC (TECH: ARR) 97880-2 Nucleated cells [#/volume] in Blood N 0.00 K/uL January 09 12:01:00 PM UTC (TECH: ARR) 50347-9 Manual Differential panel - Blood N NO January 09, 2025 12:01:00 PM UTC (TECH: ARR) LABORATORY NARRATIVE RESULTS Information is not available RADIOLOGY RESULTS ORDER 100: CT BIOPSY BONE MA RROW (LOINC: 98181-8) ORDER DATE: January 09, 2025 11:28:00 AM [facility] PERFORMING LAB: [address] [id number] Final Result Date: January 09, 2025 1:44:[address] [address] Name: BARTOLO GARZA Exam Date: 01/09/2025 : 1960 Age 64 years Gender: M Physician: BRAN AGUAYO Facility: [facility] Facility HSV: Outpatient Exam: CT BIOPSY BONE MARROW PROCEDURE: CT-GUIDED BONE MARROW BIOPSY PHYSICIAN ADMINISTERED CONSCIOUS SEDATION ATTENDING Physician: Dr. Ten Ayoub MD CODE NUMBER STAMPER: OTRI Jones. Direct Supervision: Willie Aldrich PA-C. CLINICAL HISTORY: Anemia PRIORS: 11/01/24 CT abd. COMMENT: One or more dose reduction techniques (e.g., Automated exposure control, adjustment of the mA and/or kV according to the patient size, use of iterative reconstruction technique) utilized for this examination. TECHNICAL: Informed consent was obtained and documented in the patient's chart. The patient was placed in the CT gantry in the prone position. A preprocedural scan was performed without IV contrast to identify a suitable puncture site of the right ilium. The puncture site was prepped and draped in the usual sterile fashion, then anesthetized with 1% lidocaine. Under intermittent CT guidance an 11-gauge introducer needle was advanced into the posterior right iliac bone. Next, the inner stylette was removed and 20 mL of bone aspirate was obtained, which was handed to the mri technologist. Then the introducer needle was advanced without the stylet approximately 2 cm into the bone and removed to obtain a bone marrow core biopsy. The needle was removed, hemostasis was obtained. A sterile dressing was applied to the patient and the patient left the CT suite in stable condition. CONSCIOUS SEDATION: Versed 3 mg and Fentanyl 50 mcg, Benadryl 25mg were administered intravenously for moderate sedation, under the supervision of the physician. Pulse oximetry, heart rate and blood pressure were continuously monitored by the trained nursing staff present. The physician spent a total of 30 minutes of face to face sedation time with the patient. All the procedural conscious sedation guidelines were followed and documented, including the Mallampati airway assessment, confirmation of NPO status, anesthesia history and ASA classification. LOCAL ANESTHESIA: 10 mL of 1% Lidocaine. COMPLICATIONS: None. ESTIMATED BLOOD LOSS: 20 mL. SPECIMENS: 20 ml bone marrow aspirate, 1 core specimen. FINDINGS: Satisfactory biopsy needle positioning within the posterior right ilium bone. IMPRESSION: Uncomplicated CT-guided bone marrow biopsy as described. Pathology pending. Electronically signed by: Ten Ayoub MD 01/09/2025 12:08 PM EDT RP Dictated By: Ten Ayoub Legally authenticated by SHAWANDA OMALLEY 2025-01-09 09:44:21 Transcribed By: Transcribed On: 01/09/2025 9:44 AM Electronically signed by: Ten Ayoub 01/09/2025 Thank you for referring BARTOLO GARZA to [facility]. Legally authenticated by SHAWANDA OMALLEY 2025-01-09 09:44:21 PATHOLOGY NARRATIVE RESULTS Information is not available MICROBIOLOGY RESULTS No Micro Labs/Results Exist for Patient BLOOD ADMIN RESULTS Information is not available TREATMENT PLAN DISCHARGE MEDICATIONS Status RXNORM Medication Dose Route Frequency Dates Comments U pdated By Patient discharge medication information is not available. PATIENT OPEN ORDERS Code System Description Frequency Occurrences Priority [place] [address] [facility] Pathology report addendum in Specimen Narrative ONE TIME 0 Routine January 09, 2025 11:53:0 0 AM [facility] DEDE Bhatia [id number] on January 09, 2025 11:53:00 AM [facility] SCHEDULED PROCEDURES Code System Description Status Scheduled Date Upd ated By Patient scheduled procedure information is not available. MEDICATIONS HOME MEDICATIONS Status RXNORM NVC Medication Dose Route Frequency Dates Comments Reported By Updated By Active [id number] 70518 87030 5 Allopurinol Oral Tablet 300 MG 1.0 TAB ORAL DAILY Last Dose: PATIENT [id number] on January 09, 2025 1:36:45 PM [facility] Active 184228 51793 01687 0 amLODIPine Besylate Oral Tablet 10 MG 1.0 TAB ORAL DAILY Last Dose: PATIENT [id number] on January 09, 2025 1:36:48 PM [place] Active 117241 32811 82893 0 buPROPion HCl ER (SR) Oral Tablet Extended Release 12 Hour 150 MG 1.0 TAB ORAL TID Last Dose: PATIENT [id number] on January 09, 2025 1:36:51 PM UTC Active 210856 17131 36978 1 busPIRone HCl Oral Tablet 10 MG 1.0 TAB ORAL BID Last Dose: PATIENT [id number] on January 09, 2025 1:36:57 PM UTC Active 686313 72057 74777 1 Gabapentin Oral Tablet 800 MG 1.0 TAB ORAL TID Last Dose: PATIENT [id number] on January 09, 2025 1:37:17 PM UTC Active 552659 02813 11706 2 hydrOXYzine Pamoate Oral Capsule 50 MG 1.0 CAP ORAL DAILYPRN Last Dose: PATIENT [id number] on January 09, 2025 1:37:22 PM UTC Active 7323480 91506 04540 1 oxyCODONE-Ac etaminophen Oral Tablet 10-325 MG 1.0 TAB ORAL DAILYPRN Last Dose: PATIENT [id number] on January 09, 2025 1:37:26 PM [place] Active 164582 61224 45902 0 Pantoprazole Sodium Oral Tablet Delayed Release 40 MG 1.0 TAB ORAL DAILY Last Dose: PATIENT [id number] on January 09, 2025 1:37:34 PM UTC Active 709288 28509 74642 1 Tamsulosin HCl Oral Capsule 0.4 MG 1.0 TAB ORAL DAILY Last Dose: PATIENT [id number] on January 09, 2025 1:37:38 PM UTC Active 590136 05917 51884 7 tiZANidine HCl Oral Capsule 4 MG 1.0 TAB ORAL DAILYPRN Last Dose: PATIENT [id number] on January 09, 2025 1:37:41 PM UTC Active 271858 43319 12134 5 Furosemide Oral Tablet 20 MG 20.0 ORAL DAILY Last Dose: [id number] on January 09, 2025 1:38:24 PM UTC Active 0355477 28063 19556 1 Colchicine Oral Capsule 0.6 MG 0.6 ORAL DAILY Last Dose: [id number] on January 09, 2025 1:39:00 PM UTC Active 101090 41728 92799 0 OLANZapine Oral Tablet 5 MG 5.0 ORAL DAILY Last Dose: [id number] on January 09, 2025 1:39:33 PM [facility] Active 678648 74444 44073 5 Sertraline HCl Oral Tablet 100 MG 200.0 ORAL DAILY Last Dose: [id number] on January 09, 2025 1:40:29 PM [facility] Active 068677 56052 31794 9 SUMAtriptan Succinate Oral Tablet 100 MG 1.0 ORAL DAILY Last Dose: [id number] on January 09, 2025 1:41:01 PM [facility] DISCHARGE MEDICATIONS Status RXNORM [facility] Medication Dose Route Frequency Dates Comments Physician Updated By No Discharge Medication Info rmation Available INPATIENT MEDICATIONS Status RXRM [facility] Medication Dose Route Frequency Rat e Quantity Dates Comments Physician Updated By Disceveline inued [id number] 3924 9663 714 sodium bicarbonate 8.4 % VIAL SOLN 50.0 MEQ INTRAV ENOUS ONE TIME ONLY (SCHEDULED DOSE) Start: January 09, 2025 12:07: 00 PM [facility] End: January 09, 2025 12:07: 00 PM [facility] DEDE Bhatia INTERFAC ED on January 09, 2025 12:09:00 PM [facility] Discont inued 4670521 4087 3048 527 lidocaine (XYLOCAINE) 1% SOLN 20.0 ML ONE TIME ONLY (SCHEDULED DOSE) Start: January 09, 2025 12:07: 00 PM [facility] End: January 09, 2025 12:07: 00 PM [facility] DEDE Bhatia INTERFAC ED on January 09, 2025 12:09:00 PM [facility] Discont inued 6497579 6332 3080 811 fentaNYL (SUBLIMAZE) 50 MCG/ML SOSY 50.0 MCG INTRAV ENOUS ONE TIME ONLY (SCHEDULED DOSE) Start: January 09, 2025 12:13: 00 PM [facility] End: January 09, 2025 12:13: 00 PM [facility] on January 09, 2025 12:15:00 PM [facility] Discont inued 4684584 7503 9230 504 midazolam (VERSED) 5 MG/5 ML SOLN 5.0 MG INTRAV ENOUS ONE TIME ONLY (SCHEDULED DOSE) Start: January 09, 2025 12:14: 00 PM [facility] End: January 09, 2025 12:14: 00 PM [facility] DEDE SOTOMAYOR INTERFAC ED on January 09, 2025 12:16:00 PM UTC Discont inued 9009676 6569 3066 401 diphenhydrA MINE (BENADRYL) 50 MG/ML SOLN 50.0 MG INTRAV ENOUS ONE TIME ONLY (SCHEDULED DOSE) Start: January 09, 2025 12:30: 00 PM UTC End: January 09, 2025 12:30: 00 PM [facility] BR[facility] B INTERFAC [facility] on January 09, 2025 12:31:00 PM UTC Discont inued 7598388 2401 9230 504 midazolam (VERSED) 5 MG/5 ML SOLN 1.0 MG INTRAV ENOUS EVERY FIVE MINUTES NEEDED Start: January 09, 2025 11:52: 00 AM UT End: January 09, 2025 2:09:4 6 PM UT LASTKATHERINE Woodward [id number] on January 09, 2025 2:09:00 PM UTC Discont inued 0564693 6332 3080 811 fentaNYL (SUBLIMAZE) 50 MCG/ML SOSY 25.0 MCG INTRAV ENOUS EVERY FIVE MINUTES NEEDED Start: January 09, 2025 11:52: 00 AM UTC End: January 09, 2025 7:21:0 0 PM UT LAST Woodward [id number] on January 10, 2025 4:25:00 AM UTC Discont inued 9421577 7825 3066 401 diphenhydrA MINE (BENADRYL) 50 MG/ML SOLN 25.0 MG INTRAV ENOUS ONE TIME ONLY (SCHEDULED DOSE) Start: January 09, 2025 12:41: 00 PM UT End: January 09, 2025 2:12:1 6 PM UT LASTMICHAEL Woodward [id number] on January 09, 2025 2:12:00 PM UT SOCIAL HISTORY SOCIAL HISTORY SNOMED-CT Social History Element Description Effective Dates Offered Cessation Comment UpdatedBy [id number] Historical Tobacco smoking status Never Smoked [id number] on November 12, 2024 5:05:01 PM UT SOCIAL HISTORY - Gender Sex: Male SOCIAL HISTORY - Status : status i nformation is not available Intention in Next Year: intention information is not available SOCIAL HISTORY - Sexual Behavior Sexual Orientation Gender Identity SNOMED-CT Description SNO MED -CT Description Activity Level No of Partners Partner Type UpdatedBy Information is not available VITAL SIGNS PATIENT VITAL SIGNS This section displays the mo st recent value for each vital sign as of January 13, 2025 10:39:33 AM [facility] Loinc Code Vital Sign Activity Date Result Updated By 8462-4 Diastolic blood pressure January 09, 2025 3:20:00 PM UTC 61.0 mm[Hg] [id number] on January 09, 2025 3:42:22 PM UT 8867-4 Heart rate January 09, 2025 3:20:00 PM UT 67 /min [id number] on January 09, 2025 3:42:22 [place] [address]-2 Oxygen saturation in Arterial blood by Pulse oximetry January 09, 2025 3:20:00 PM UT 98.0 % [id number] on January 09, 2025 3:42:22 PM [facility] 9279-1 Respiratory rate January 09, 2025 3:20:00 PM UT 18 /min [id number] on January 09, 2025 3:42:22 PM [facility] 8480-6 Systolic blood pressure December 3:20:00 PM UT 123.0 mm[Hg] [id number] on January 09, 2025 3:42:22 PM [facility] PEDIATRIC GROWTH CHART - VITAL SIGNS This section displays Head C ircumference Percentile, Weight for Length Percentile and BMI Percentile Loinc Code Pediatric Measure Age (Months) Result Updat ed By No Pediatric Growth Chart Pe rcentile Information Available. PROCEDURES PATIENT PROCEDURES CODE SYSTEM DESCRIPTION STATUS PERFORMED DATE UPD ATED BY [id number] SNOMED-CT Bone marrow biop sy, needle or trocar completed January 09, 2025 4:00:00 AM UT [id number] on January 09, 2025 1:51:36 PM UT PROCEDURE NOTE Note Title Operative/Procedure Note Date Of Service January 09, 2025 1:51: 44 PM UT Created By [id number] on January 09, 2025 1:51:44 PM UTC Signed By [id number] on January 10, 2025 2:45:18 PM UT Pre-Procedure Diagnosis Anemia Post- Procedure Diagnosis Anemia Procedure / Surgery Performed Bone marrow biopsy, needle or trocar CT guided Performed by LAST ZHANG Assisted by KATI SAAVEDRA Anesthesia Type Conscious sedation, Local anesthesia Estimated Blood Loss Minimal. Complications None Present at Time of Surgery Willie Aldrich PA-C, [place], [facility]. Indication Diagnostic purpose. Procedure Description / Findings Successful CT guided bone marrow biopsy using sterile technique. Using an 11 gauge bone marrow needle the right ilium was accessed and removed 20 ml of bone marrow aspirate and one core specimen. Sterile dressing was applied to the site. Patient tolerated the procedure fair. Informed written consent was obtained prior to procedure including discussion of risks/benefits/alternatives and answering all patient's questions. See radiology report for full details. Specimens 20ml bone marrow aspirate and 1 core bone marrow specimen obtained. Tubes/Drains None Implants None Disposition of Patient Home in stable condition. Electronically signed by LAST ZHANG on 0354 I hereby attest the note that was written on this patient accurately reflects the notations made when patient was examined. Electronically signed by SHAWANDA MEDINA on 1045 HEALTH CONCERNS Problems Concern Status Health Concern problem infor mation not available. Smoking Status Status Years Used Consumed packs p er day Health Concern smoking histo ry information not available. Family History Concern Status Health Concern family histor y information not available. ENCOUNTERS ENCOUNTER INFORMATION Reason for Visit ANEMIA Admission January 09, 2025 11:21:[address] [address] Discharge January 09, 2025 7:21:00 PM [facility] DI SCHARGED TO HOME OR SELF CARE ENCOUNTER DIAGNOSES Notes information is not dai ilable. Code System Diagnosis Onset Date Diagnosis information is not available. ABSTRACT DIAGNOSES Code System Diagnosis Updated By D64.9 ICD10 ANEMIA, UNSPECIFIED [id number] on January 13, 2025 10:38:33 AM [facility] D64.9 ICD10 ANEMIA, UNSPECIFIED [id number] on January 13, 2025 10:38:33 AM [facility] D72.819 ICD10 DECREASED WHITE BLOOD CELL COUNT, UNSPECIFIED [id number] on January 13, 2025 10:38:33 AM [facility] D69.6 ICD10 THROMBOCYTOPENIA, UNSPECIFIE D [id number] on January 13, 2025 10:38:33 AM [facility] Z87.19 ICD10 PERSONAL HISTORY OF OTHER DISEASES OF THE DIGESTIVE SYSTEM [id number] on January 13, 2025 10:38:33 AM [facility] R93.7 ICD10 ABNORMAL FINDING S ON DIAGNOSTIC IMAGING OF OTHER PARTS OF MUSCULOSKELETAL SYSTEM [id number] on January 13, 2025 10:38:33 AM [facility] Z88.6 ICD10 ALLERGY STATUS TO ANALGESIC AGENT [id number] on January 13, 2025 10:38:33 AM [facility] CARE TEAM Care Tip Scourer Role BRAN AGUAYO Referring BRAN AGUAYO Primary Attending AGUSTIN WARD Primary Care BRAN AGUAYO Admitting DARI NI Surgeon HOSPITAL DISCHARGE INSTRUCTION DISCHARGE INSTRUCTION Encounter [id number] Admit Date January 09, 2025 11:21 :00 AM [place] Discharge Date January 09, 2025 7:21: 00 PM [facility] PATIENT EDUCATION SUMMARY Patient/Visit Information: Patient Name: BARTOLO GARZA Diag: Attending Caregiver: DEDE Bhatia Discharge Instruction Sheets Provided: [facility] Radiology CT Guided Biopsy Discharge Instructions Patient Instructions: Followup Appointments/Instructions: 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 Role on Team Status Start Date End Date Update d By LAST ZHANG Surgeon normal January 09, 2025 11:21:00 AM [facility] January 09, 2025 7:21:00 PM [place] [id number] on January 13, 2025 10:37:38 AM [facility] SYLVIA MEDINA PCP normal December 31, 2024 8:34:32 PM [facility] January 09, 2025 7:21:00 PM UT [id number] on January 13, 2025 10:37:38 AM [facility] DEDE DUDLEY Referring normal December 31, 2024 8:34:32 PM [facility] January 09, 2025 7:21:00 PM UT [id number] on January 13, 2025 10:37:38 AM [facility] DEDE DUDLEY Attending normal December 31, 2024 8:34:32 PM [facility] January 09, 2025 7:21:00 PM UT [id number] on January 13, 2025 10:37:38 AM [facility] DEDE DUDLEY Admitting normal December 31, 2024 8:34:32 PM [facility] January 09, 2025 7:21:00 PM [place] [id number] on January 13, 2025 10:37:38 AM [facility]
--- OUTSIDE RECORDS SUMMARY | 2025-01-14 16:55 | XMS_ITS | Continuity of Care Document ---
Author Organization [facility] Oncology [facility] Hematology Address [address] [facility] [facility] [place] [address] Care Team Providers Care End Packer Name Role Phone AGUSTIN WARD Primary Care Provider Assessment No assessment recorded. Plan of Treatment Reminders Order Date Submit Date Provider Last Modified By Organization Details Last Modified Time Details Appointments Establish ed Visit 15 min 2024 11:00A M Slade Lennon PA-C Not available Not available Not available OV EST 30 2024 01:00P M Bran Gregg PA-C Not available Not available Not available OV EST 2024 02:30P M Bran Gregg PA-C Not available Not available Not available Lab chronic leukemia panel, flow cytometry , unspecifi ed specimen [address] Lab, [address] [facility], [place], [address], 12/19/2024 12:14:49 ldh, serum or plasma 2024 025 [facility], [address] [facility], [place], [address], 12/12/2024 18:11:28 iron + TIBC + ferritin, serum 2024 025 [email or web address] [facility], [address] [facility], [place], [address], 12/19/2024 12:14:49 CMP, serum or plasma 2024 025 [facility], [address] [facility], [place], [address], 12/12/2024 18:11:26 CBC w/ auto diff 2024 025 [facility], [address] [facility], [place], [address], 12/12/2024 18:43:17 vitamin B12 + folate, serum or blood [address] Lab, [address] [facility], [place], [address], 12/19/2024 12:14:49 iron saturatio n, serum [address] Lab, [address] [facility], [place], [address], 12/19/2024 12:14:49 type + screen, serum [address] Lab, [address] [facility], [place], [address], 12/19/2024 12:14:49 Referral None recorded. Procedures None recorded. Surgeries None recorded. Imaging None recorded. Medication Orders None recorded. Patient TargetsNo targets recorded. Patient InstructionsNo instructions recorded. Reason for Referral None Reported. Results Created Date Observation Date Name Description Value Unit Range Abnormal Flag Note LastModifiedBy Organization Detail LastModifiedTime 12/13/1912/06/2024 MRI proce dure (PROC ) No observ ation record ed. [email or web address] [facility] (Med Record) [address], [place], [address], 2024 10:13:14 12/17/19 25 12/06/2024 MRI, cervi gil spine , w/wo contr ast No observ ation record ed. [email or web address] Not Available 2024 11:26:57 12/21/19 25 12/20/2024 RF, small bowel follo w-thr ough study No observ ation record ed. [email or web address] [facility] [address], [place], [address], 2024 10:13:47 01/10/20 25 01/09/2025 CT biops y bone cuca collins [facility] [address] [place] [address] Phone: Fax: Name: BARTOLO HENDRICKSON Exam Date: 025 : 962 Age 64 years Gender : M Access ion: [id number] Physic linda: BRAN MUÑOZ Facili ty: [facility] Facili ty HSV: Outpat ient Exam: CT BIOPSY BONE MARROW PROCED URE: CT-CUBA DED BONE MARROW BIOPSY PHYSIC LINDA ADMINI STERED CONSCI OUS SEDATI ON ATTEND ING Physic linda: Dr. Ten mendes MD PRIMAR Y OPERAT OR: Marcio luong, BACTERIOLOGIST PHARMACEUTICAL-C. Direct Superv ision: Willie nolasco PA-C. CLINIC AL HISTOR Y: Anemia PRIORS : 5 CT abd. COMMEN T: One or more dose reduct ion techni ques (e.g., Automa kilo exposu re contro l, adjust ment of the mA and/or kV accord ing to the patien t size, use of iterat mirella recons tructi on techni que) [facility] TECHNI GIL: Inform ed consen t was obtain ed and docume nted in the patien t's chart. The patien t was placed in the CT gantry in the prone positi on. A prepro cedura l scan was perfor med withou t IV contra st to identi fy a suitab le punctu re site of the right ilium. The punctu re site was preppe d and draped in the usual steril e fashio n, then anesth etized with 1% lidoca ine. Under interm ittent CT guidan ce an 11-gau ge introd ucer needle was advanc ed into the curriculum development specialist ior right iliac bone. Next, the inner stylet te was remove d and 20 mL of bone aspira te was obtain ed, which was handed to the pathivan guzman techno logist . Then the introd ucer needle was advanc ed withou t the stylet approx imatel y 2 cm into the bone and remove d to obtain a bone marrow core biopsy . The needle was remove d, hemost asis was obtain ed. A steril e dressi ng was applie d to the patien t and the patien t left the CT suite in stable condit ion. CONSCI OUS SEDATI ON: Versed 3 mg and Fentan yl 50 mcg, Benadr yl 25mg were admini stered intrav enousl y for modera te sedati on, under the superv ision of the physic linda. Pulse oximet ry, heart rate and blood pressu re were contin uously monito red by the jade flores staff presen t. The physic linda spent a total of 30 minute s of face to face sedati on time with the patien t. All the proced ural consci ous sedati on guidel ally were follow ed and docume nted, includ ing the Mallam jose g airway assess ment, confir mation of NPO status , anesth esia histor y and ASA classi ficati on. LOCAL ANESTH ESIA: 10 mL of 1% Lidoca ine. COMPLI CATION S: None. ESTIMA KILO BLOOD LOSS: 20 mL. SPECIM ENS: 20 ml bone marrow aspira te, 1 core specim en. FINDIN GS: Satisf actory biopsy needle positi oning within the curriculum development specialist ior right ilium bone. IMPRES YUNG: Uncomp licate d CT-cuba ded bone marrow biopsy as descri bed. Pathol thomas martin Electr onical ly signed by: Ten mendes MD 2024 12:08 PM EDT RP Workst ation: [id number] Dictat ed By: Ten Weathers Legall y authen ticate d by SAMRA OMALLEY 01-09 09:44: 21 Transc ribed By: Transc ribed On: 025 9:44 AM Electr onical ly signed by: Ten Weathers 025 Thank you for referr ing BARTOLO HENDRICKSON to [facility]. Legall y authen ticate d by SAMRA OMALLEY 0 01-09 09:44: 21 CC'ed Logic: Orderi ng Provid er: WILLY SOTOMAYOR Attend ing Provid er: WILLY SOTOMAYOR Referr ing Provid er: WILLY SOTOMAYOR Admitt ing Provid er: WILLY SOTOMAYOR [email or web address] [facility] [address], [place], [address], 01/09/2025 14:07:33 Result Notes None recorded. Problems Name Problem SNOMED Code Status Onset Date Resolution Date Notes Provider Name and Address Organization Details Recorded Time Weakness present 708612095 Active Deirdre Workman null, [place] - [facility] - [place] & [place] 4 14:32:40 Anemia 133347386 Active Deirdre Workman null, [place] [facility] [place] 4 14:32:40 High troponin I level 136925320 Active Deirdre Workman null, [place] [facility] & [place] 4 14:32:40 Dyspnea on exertion 73377405 Active Deirdre Workman null, [place] [facility] & [place] 4 14:32:40 Gastrointe stinal hemorrhage 58007918 Active Deirdre Workman null, [place] [facility] & [place] 4 14:32:40 Atheroscle rosis of coronary artery without angina pectoris 6421011093270 03 Active 2023 Maxi Goodwin MD [address], [place], [address] , [place] [facility] [place] & [place] 4 13:56:37 Essential hypertensi on 10006141 Active 2023 Maxi Goodwin MD [address], [place], [address] , [place] [facility] [place] & [place] 4 13:56:52 Heart murmur 33911024 Active 2023 Maxi Goodwin MD [address], [place], [address] , [place] - [facility] - [place] & [place] 4 14:53:45 Anemia due to blood loss 007561173 Active 2024 Slade Lennon PA-C [address], [place], [address] , [place] [facility] [place] & [place] 5 20:36:19 Abnormal movement 392429424 Active [address], [place], [address] , [place] [facility] [place] & [place] 5 13:24:16 Anxiety 35935498 Active 2021 Tarun Hopkins null, [place] [facility] [place] & [place] 2 13:21:47 Chronic pain 46098251 Active 2021 Tarun Hopkins null[place] 2 13:21:53 Hypertensi ve disorder 27887760 Active 2021 Tarun Hopkins null[place] 2 13:22:00 Diabetes mellitus 42089001 Active 2021 Tarun Hopkins null[place] & [place] 2 13:22:16 Cirrhosis of liver 04868855 Active 2023 Slade Lennon PA-C [address], [place], [address] , [place] [facility] [place] & [place] 4 10:34:13 Iron deficiency anemia 28917641 Active 2023 Slade Lennon PA-C [address], [place], [address] , [place] [facility] [place] & [place] 4 10:34:22 Vascular ectasia of gastric antrum 75840570 Active [address], [place], [address] , [place] [facility] [place] & [place] 4 10:34:26 Upper gastrointe stinal bleeding 61378213 Active 2023 Slade Lennon PA-C [address], [place], [address] , [place] [facility] & [place] 4 10:34:38 Bilateral lower limb edema 488616746 Active 2023 Slade Lennon PA-C [address], [place], [address] , [place] [facility] & [place] 4 12:54:25 Hepatic encephalop athy 26012849 Active 2023 Slade Lennon PA-C [address], [place], [address] , [place] [facility] & [place] 4 13:42:22 Problem Notes None recorded. Procedures Surgical History Date Name Laterality Status Provider Name and Address Organization Details Recorded Time 12/17/19 Venipuncture Gastro completed Janell Ruff [facility] & [place] 12/16/2024 13:55:02 cholecystectomy completed Deirdre Ibarra [facility] & [place] 10/07/2022 09:58:34 Knee arthroscopy/surgery completed Deirdre [facility] & [place] 10/07/2022 09:58:40 Imaging Results None recorded. Procedure Notes None recorded. Medical Equipment None Reported. Allergies Allergen ID Allergen Name Allergen Category Reaction Reaction Severity Criticality Documentation Date Start Date Code Code System Note Provider Name and Address Organization Details Recorded Time 978434 celecoxib medicatio n Not available Not available Not available 08/21/2024 71641 7 RxNorm Other react ions and sever ities : 'Adve rse react ion to subst ance' . Deirdre Ashleybob castrejon [place] [facility] & [place] 4 14:32:25 47370 Celebrex medicatio n Not available Not available Not available 06/28/2022 39827 7 RxNorm Gracen Massielzeltimo castrejon [place] [facility] & [place] 2 10:41:02 Medications Name Sig Start Date Stop Date Status Note LastModified by Organization Details LastModified Time Prescriptio n - Prior Authorizati on Request active Not Available Not Available N ot Available amoxicillin 500 mg capsule 08/21 completed Not Available Not Available Not Available octreotide acetate 500 mcg/mL injection solution 500 microgram s by injection route. 01/15 completed Not Available Not Available Not Available furosemide 10 mg/mL injection solution 20 mg by injection route. 01/16 completed Not Available Not Available Not Available bupropion HCl SR 150 mg tablet,12 hr sustained-r elease TAKE ONE TABLET BY MOUTH 3 TIMES A DAY active Not Available Not Available No t Available carvedilol 25 mg tablet Take 1 tablet twice a day by oral route for 30 days. 11/01 completed Not Available Not Available Not Available gabapentin 600 mg tablet 06/27 completed Not Available Not Available Not Available carvedilol 12.5 mg tablet Take 25 mg by oral route. 08/21 completed Not Available Not Available Not Available Venofer 100 mg iron/5 mL intravenous solution 300 mg by intraven. route. 01/16 completed Not Available Not Available Not Available cefpodoxime 200 mg tablet 11/01 completed Not Available Not Available Not Available Lidocaine Viscous 2 % mucosal solution 09/12 completed Not Available Not Available Not Available tizanidine 4 mg tablet TAKE ONE TABLET BY MOUTH 2 TIMES A DAY NEEDED FOR MUSCLE SPASMS active Not Available Not Available No t Available sumatriptan 100 mg tablet 100 mg by oral route. active Not Available Not Available No t Available sucralfate 100 mg/mL oral suspension active Not Available Not Available N ot Available Diprivan 10 mg/mL intravenous emulsion 500 mg by intraven. route. 01/17 completed Not Available Not Available Not Available ondansetron HCl 4 mg tablet Take 1 tablet every 8 hours by oral route for 30 days. active Not Available Not Available No t Available Children's Aspirin 81 mg chewable tablet 81 mg by oral route. 01/15 completed Not Available Not Available Not Available gabapentin 400 mg capsule Take 800 mg by oral route. 08/21 completed Not Available Not Available Not Available sertraline 100 mg tablet Take 2 mg every day by oral route for 30 days. active Not Available Not Available No t Available octreotide acetate 50 mcg/mL injection solution 50 microgram s by injection route. 01/16 completed Not Available Not Available Not Available olanzapine 5 mg tablet Take 5 mg by oral route. active Not Available Not Available No t Available lactated Ringers intravenous solution 1000 mL by intraven. route. 01/15 completed Not Available Not Available Not Available hydroxyzine pamoate 50 mg capsule TAKE ONE CAPSULE BY MOUTH EVERY 6 HOURS NEEDED FOR ITCHING active Not Available Not Available No t Available olanzapine 2.5 mg tablet 08/21 completed Not Available Not Available Not Available acetaminoph en 500 mg tablet Take 650 mg by oral route. 09/12 completed Not Available Not Available Not Available spironolact one 25 mg tablet Take 50 mg by oral route. 11/01 completed Not Available Not Available Not Available ceftriaxone 1 gram solution for injection 1 g by injection route. 01/17 completed Not Available Not Available Not Available Protonix 40 mg intravenous solution 40 mg by intraven. route. 01/15 completed Not Available Not Available Not Available oxycodone-a cetaminophe n 10 mg-325 mg tablet Take 1 tablet by oral route. active Not Available Not Available No t Available tamsulosin 0.4 mg capsule 0.4 mg by oral route. active Not Available Not Available No t Available gabapentin 800 mg tablet TAKE ONE TABLET BY MOUTH 3 TIMES A DAY active Not Available Not Available No t Available amlodipine 10 mg tablet 10 mg by oral route. active Not Available Not Available No t Available cephalexin 500 mg capsule 11/01 completed Not Available Not Available Not Available pantoprazol e 40 mg tablet,martha yed release 40 mg by oral route. active Not Available Not Available No t Available diphenhydra mine 25 mg capsule 50 mg by oral route. 01/16 completed Not Available Not Available Not Available buspirone 10 mg tablet 20 mg by oral route. active Not Available Not Available No t Available promethazin e 25 mg tablet TAKE 1/2 TO 1 TABLET BY MOUTH EVERY 6 HOURS NEEDED FOR NAUSEA/VO MITING active Not Available Not Available No t Available hydroxyzine HCl 25 mg tablet Take 50 mg by oral route. 11/01 completed Not Available Not Available Not Available allopurinol 300 mg tablet 300 mg by oral route. active Not Available Not Available No t Available furosemide 20 mg tablet 20 mg by oral route. active Not Available Not Available No t Available lidocaine HCl 20 mg/mL (2 %) injection solution 2 mL by injection route. 01/17 completed Not Available Not Available Not Available sodium chloride 0.9 % intravenous solution 50 mL by intraven. route. 01/15 completed Not Available Not Available Not Available colchicine 0.6 mg tablet 0.6 mg by oral route. active Not Available Not Available No t Available ondansetron 4 mg disintegrat ing tablet Place 4 mg by oral route. 09/12 completed Not Available Not Available Not Available hydroxyzine pamoate 25 mg capsule 09/12 completed Not Available Not Available Not Available coenzyme Q10 100 mg capsule Take 200 mg by oral route. 09/12 completed Not Available Not Available Not Available lactulose 10 gram/15 mL oral solution Take 15 mL 3 times a day by oral route for 30 days. active Not Available Not Available No t Available chlorhexidi ne gluconate 0.12 % mouthwash 09/12 completed Not Available Not Available Not Available sodium chloride 0.9 % intravenous piggyback 50 mL by intraven. route. 01/17 completed Not Available Not Available Not Available ondansetron HCl (PF) 4 mg/2 mL injection solution 4 mg by injection route. 01/17 completed Not Available Not Available Not Available ferrous sulfate 324 mg (65 mg iron) tablet,martha yed release 324 mg by oral route. active Not Available Not Available No t Available BD PosiFlush Normal Saline 0.9 % injection syringe 10 mL by injection route. 01/17 completed Not Available Not Available Not Available oxycodone 10 mg tablet 08/21 completed Not Available Not Available Not Available Xifaxan 550 mg tablet Take 1 tablet by oral route. 11/01 completed Not Available Not Available Not Available HealthyLax 17 gram oral powder packet 17 g by oral route. 01/17 completed Not Available Not Available Not Available OxyContin 40 mg tablet,tim h resistant,e xtended release Take 1 tablet every 12 hours by oral route for 30 days. active Not Available Not Available No t Available OxyContin 20 mg tablet,tim h resistant,e xtended release Take 40 mg by oral route. 08/21 completed Not Available Not Available Not Available Xtampza ER 36 mg capsule sprinkle 09/12 completed Not Available Not Available Not Available Vitals Date Recorded Body height Body mass index (BMI) Body weight Body temperature Oxygen saturation Oxygen saturation in Arterial blood by Pulse oximetry Heart rate Systolic blood pressure Diastolic blood pressure Provider Name and Address Organization Details Last Updated DateTime 5 177.8 cm 44.3 kg/m2 116428. 61 g 97.5 [degF] 97 % 97 % 62 /min 129 mm[Hg] 63 mm[Hg] Deirdre Ashleybob [facility] & [place] 5 13:11:45 Social History Question Answer Notes LastModified by Organizat ion Details LastModified Time Tobacco Smoking Status Never Smoker Deirdredimitri Ramirez[place] [facility] & [place] 10/07/2022 09:58:16 What Is Your Level Of Alcohol Consumption? None [email or web address] Information not available 10/07/2022 What Is Your Level Of Caffeine Consumption? Moderate [email or web address] Information not available 09/12/2024 Do You Use Any Illicit Or Recreational Drugs? No Information not available 10/07/2022 Sex: Unknown Functional Status None recorded. Mental Status None recorded. Family History Relationship Description Onset Age of this Age Resolved Age Notes LastModified by Organization Details LastModified Time Father Father stomac h cancer [email or web address] Not available 10/07/2022 09:57:37 Mother Mother COPD Not available 10/07 09:58:04 Medical History No medical history recorded. Immunizations Vaccine Type Date Status Note Provider Nam e and Address Organization Details Recorded Time Influenza, split virus, quadrivalent, preservative 9 completed Deirdre Ashley[place] [facility] & [place] 02/03/2023 09:34:06 COVID-19 vaccine, vector-nr, rS-Ad26, PF, 0.5 mL 1 completed Deirdre Workman null, [place] [facility] [place] & [place] 02/03/2023 09:34:06 COVID-19 vaccine, vector-nr, rS-Ad26, PF, 0.5 mL 1 completed Deirdre Workman [place], [place] 02/03/2023 09:34:06 COVID-19, mRNA, LNP-S, bivalent, PF, 30 mcg/0.3 mL dose 2 completed Deirdre Workman null, [place] 02/03/2023 09:34:06 Tdap 5 completed Deirdre Workman [place] & [place] 02/03/2023 09:34:06 Influenza, split virus, trivalent, PF 7 completed Deirdre Workman [place] 02/03/2023 09:34:06 Influenza, split virus, trivalent, PF 3 completed Deirdre [place] 02/03/2023 09:34:06 Hep B, adult 6 completed Deirdre Workman [place] 02/03/2023 09:34:06 Hep B, adult 5 completed Deirdre [place] 02/03/2023 09:34:06 Hep B, adult 5 completed Deirdre Workman [place] 02/03/2023 09:34:06 Influenza, split virus, quadrivalent, PF 0 completed Deirdre [place] 02/03/2023 09:34:06 Influenza, split virus, quadrivalent, PF 1 completed Deirdre [place] 02/03/2023 09:34:06 Influenza, split virus, quadrivalent, PF 5 completed Deirdre Olmstead null, [place] - [facility] - [place] & [place] 02/03/2023 09:34:06 Influenza, split virus, quadrivalent, PF 7 completed Deirdre Workbob null, [place] - [facility] - [place] & [place] 02/03/2023 09:34:06 Influenza, split virus, quadrivalent, PF 2 completed Deirdredimitri [place] null, [place] - [facility] - [place] & [place] 02/03/2023 09:34:06 Influenza, split virus, quadrivalent, PF 6 completed Deirdre Olmstead null, [place] - [facility] - [place] & [place] 02/03/2023 09:34:06 Influenza, split virus, trivalent, PF 4 completed Deirdre Olmstead null, [place] - [facility] & [place] 12/12/2024 13:08:09 Past Encounters Encounter ID Performer Location Encounter Start Date Encounter Closed Date Diagnosis/Indication Diagnosis SNOMED-CT Code Diagnosis ICD10 Code Diagnosis Note [id number] Bran Gregg PA-C [facility] [address] [facility] [address] [place] [address] 12/12/2024 13:02:17 12/12/2024 13:26:58 Leukopenia 58469799 D72.819 Patient labs performed per his primary care provider on {{ 2021#}} with white blood cell count {{ 2.9#}}. Red blood cell count {{ 3.76#}} . Hemoglobin {{ 11.9#}} hematocrit {{ 35.8#}} . MCV {{ 95#}}. Normal MCH and MCHC. Platelet count {{ 82,000# }}. Differenti al {{ with absolute lymphocyte count slightly low at 0.6. Differenti al otherwise unremarkab le. No evidence of chronic kidney disease. Normal liver enzymes.#} }. Labs on {{ December 02, 2021 #}} with white blood cell count {{ 3.0#}}. Red blood cell count {{ 4.18#}} . Hemoglobin {{ 13.2#}} hematocrit {{ 39.1#}} . MCV {{ 94#}}. Normal MCH and MCHC. Unable to perform platelet count due to aggregatio n of platelets. Normal differenti al. Serum iron 61 iron saturation 17%. Ferritin 71. Vitamin B12 normal at 982. Labs on September 08, 2021 with white blood cell count 3.4. Red blood cell count 4.49. Hemoglobin 14.2 and hematocrit 42. Platelet count 79152 Labs on June 28, 2022 with WBC 2.3. Hemoglobin 10.9. platelet count 90,000. GFR 55. Normal thyroid panel. GFR 55. normal flow cytometry. Negative MARCEL. Negative platelet antibody. Negative HIV. Normal vitamin B12 and folic acid. Serum iron low at 28 and iron saturation 7%. Ferritin 67. Patient was taking oral iron. Received infusional iron therapy. Patient does have cirrhosis. Patient is due for EGD and colonoscop y. Patient states he did not want to follow-up with Gastroente rology but strongly encouraged GI evaluation to assess for blood loss due to iron def. anemia Labs on October 07, 2022 with white blood count 2.4. Red blood count 3.8. Hemoglobin 11.1. Hematocrit 34.3. Platelet count 88294. MCV 91.5. GFR greater than 60. Albumin 3.2. Total protein 7.1. Normal liver function testing. Patient returns on February 03, 2023. Discussed repeat labs today. Patient returns on December 12, 2024. Patient was hospitaliz ed at [facility] for a gi bleed 09/30/24-. He had varices banded and received 7 units of blood at that time. Follow up EGD and November 13, 2024 with no evidence of blood loss. Labs on August 21, 2024 with pancytopen ia. White blood cell count 2.1. Hemoglobin 6.7 and hematocrit 23.2. Platelet count 89751. serum iron low at 26 and iron saturation 6%. Ferritin 13. Patient received blood transfusio n and infusional iron. Patient has completed infusional iron. Patient does not feel like the infusional iron helped much. He still feels weak and tired. Patient denies any bleeding or signs of infection. Discussed repeat labs today. Will follow up with further recommenda tions. Will notify patient if infusional iron is required at this time Anemia 773055311 D64.9 Patient labs performed per his primary care provider on {{ er 2021#}} with white blood cell count {{ 2.9#}}. Red blood cell count {{ 3.76#}} . Hemoglobin {{ 11.9#}} hematocrit {{ 35.8#}} . MCV {{ 95#}}. Normal MCH and MCHC. Platelet count {{ 82,000# }}. Differenti al {{ with absolute lymphocyte count slightly low at 0.6. Differenti al otherwise unremarkab le. No evidence of chronic kidney disease. Normal liver enzymes.#} }. Labs on {{ December 02, 2021 #}} with white blood cell count {{ 3.0#}}. Red blood cell count {{ 4.18#}} . Hemoglobin {{ 13.2#}} hematocrit {{ 39.1#}} . MCV {{ 94#}}. Normal MCH and MCHC. Unable to perform platelet count due to aggregatio n of platelets. Normal differenti al. Serum iron 61 iron saturation 17%. Ferritin 71. Vitamin B12 normal at 982. Anemia secondary to GI blood loss. Will follow up labs today. Will notify patient if infusional iron is required at this time. Thrombocyt openic disorder [id number] D69.6 Patient labs performed per his primary care provider on {{ er 2021#}} with white blood cell count {{ 2.9#}}. Red blood cell count {{ 3.76#}} . Hemoglobin {{ 11.9#}} hematocrit {{ 35.8#}} . MCV {{ 95#}}. Normal MCH and MCHC. Platelet count {{ 82,000# }}. Differenti al {{ with absolute lymphocyte count slightly low at 0.6. Differenti al otherwise unremarkab le. No evidence of chronic kidney disease. Normal liver enzymes.#} }. Labs on {{ December 02, 2021 #}} with white blood cell count {{ 3.0#}}. Red blood cell count {{ 4.18#}} . Hemoglobin {{ 13.2#}} hematocrit {{ 39.1#}} . MCV {{ 94#}}. Normal MCH and MCHC. Unable to perform platelet count due to aggregatio n of platelets. Normal differenti al. Serum iron 61 iron saturation 17%. Ferritin 71. Vitamin B12 normal at 982. Labs on September 08, 2021 with white blood cell count 3.4. Red blood cell count 4.49. Hemoglobin 14.2 and hematocrit 42. Platelet count 77631 Discussed thrombocyt openia likely secondary to cirrhosis. MRI of lum bar spine abnormal [id number] R93.7 Patient returns on December 12, 2024. Patient states he has had muscle spasms and tremors for the past 6 months. States he has had multiple falls due to the tremor since spasms. He has difficulty eating with utensils at times due to tremors. He has been following up with his primary care provider for this. He recently had MRI of his back [facility]. Reviewed MRI today and it states there is diffuse abnormal decreased marrow signal which could be secondary to marrow infiltrati on secondary to neoplasm, hematologi gil disease, or myelofibro sis. Multilevel degenerati ve disc disease was also noted. Will order labs for further evaluation today. Discussed bone marrow biopsy for further evaluation . Patient agreeable. Will order. History of esophageal varices [id number] Z87.19 Patient returns on December 12, 2024. Patient was hospitaliz ed at [facility] for a gi bleed 09/30/24-. He had varices banded and received 7 units of blood at that time. Follow up EGD and November 13, 2024 with no evidence of blood loss. Health Concerns Section Related Observation LastModified by Organization Detai ls LastModified Time None Recorded Concern Status LastModified by Organization Details LastModified Time None Recorded Payers Encounter Date Sequence Insurance Name Policy Number Policy Grimm Covered Member ID Grimm Member ID Guarantor Name 12/12/2024 2 [place] [facility] CHOICES - FFS/TRADITION AL Bartolo Hendrickson [id number] Bartolo Hendrickson 12/12/2024 1 [facility] (MEDICARE REPLACEMENT/A DVANTAGE - HMO) KYANDREZ Hendrickson [id number] Bartolo Hendrickson Notes Date Note Type Note Provider Name and Address Organization Details Recorded Time 12/12/2024 text/html 63-year-old male returns for evaluation of pancytopenia. Patient labs performed per his primary care provider on {{ June 02, 2022#}} with white blood cell count {{ 2.9#}}. Red blood cell count {{ 3.76#}}. Hemoglobin {{ 11.9#}} hematocrit {{ 35.8#}}. MCV {{ 95#}}. Normal MCH and MCHC. Platelet count {{ 82,000#}}. Differential {{ with absolute lymphocyte count slightly low at 0.6. Differential otherwise unremarkable. No evidence of chronic kidney disease. Normal liver enzymes.#}}. Labs on {{ December 02, 2021 #}} with white blood cell count {{ 3.0#}}. Red blood cell count {{ 4.18#}}. Hemoglobin {{ 13.2#}} hematocrit {{ 39.1#}}. MCV {{ 94#}}. Normal MCH and MCHC. Unable to perform platelet count due to aggregation of platelets. Normal differential. Serum iron 61 iron saturation 17%. Ferritin 71. Vitamin B12 normal at 982. Labs on September 08, 2021 with white blood cell count 3.4. Red blood cell count 4.49. Hemoglobin 14.2 and hematocrit 42. Platelet count 77700 Patient does not smoke. Denies any recent infections. Denies any unintentional weight loss, fever, chills, or night sweats. she does bruise easy. Denies any bleeding. Father had gastric cancer but was also an alcoholic. No other any family history of malignancy. Patient is taking oral iron and oral vitamin B12. Patient states he has non alcoholic cirrhosis. He was following with Gastroenterology but has not followed with them in several months. Patient encouraged to follow-up with Gastroenterology for cirrhosis. Labs on June 28, 2022 with WBC 2.3. Hemoglobin 10.9. platelet count 90,000. GFR 55. Normal thyroid panel. GFR 55. normal flow cytometry. Negative MARCEL. Negative platelet antibody. Negative HIV. Normal vitamin B12 and folic acid. Serum iron low at 28 and iron saturation 7%. Ferritin 67. Patient was taking oral iron. Received infusional iron therapy. Patient does have cirrhosis. Patient is due for EGD and colonoscopy. Patient states he does not want to follow-up with Gastroenterology but strongly encouraged GI evaluation to assess for blood loss due to iron def. anemia Labs on October 07, 2022 with white blood count 2.4. Red blood count 3.8. Hemoglobin 11.1. Hematocrit 34.3. Platelet count 24311. MCV 91.5. GFR greater than 60. Albumin 3.2. Total protein 7.1. Normal liver function testing. Labs on February 03, 2023 with improvement in platelet count [id number]. Improvement in white blood cell count 3.4. Improvement in hemoglobin 11.8. B12 folate normal. Renal function stable GFR 51. Slightly low iron saturation at 11%. Consideration for oral iron therapy versus daily multivitamin. With other labs currently at levels they are would favor daily multivitamin. Patient had labs per his primary care provider on April 29, 2024 with white blood cell count 2.3. Hemoglobin 11.1. Platelet count 49469. Serum iron low at 24 and iron saturation 6%. Ferritin 37. Patient is taking ferrous sulfate 325 mg 1 tab p.o. t.i.d.. Discussed infusional iron since persistent iron deficiency despite oral iron. Patient denies any bleeding or signs of infection. Patient instructed to follow-up with gastroenterology to assess for any blood loss due to iron deficiency. 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 He had an EGD with thermal therapy applied May 2024. Patient returns on December 12, 2024. Patient was hospitalized at [facility] for a gi bleed 09/30/24-10/03/24. He had varices banded and received 7 units of blood at that time. Follow up EGD and November 13, 2024 with no evidence of blood loss. Patient states he has had muscle spasms and tremors for the past 6 months. States he has had multiple falls due to the tremor since spasms. He has difficulty eating with utensils at times due to tremors. He has been following up with his primary care provider for this. He recently had MRI of his back [facility]. Reviewed MRI today and it states there is diffuse abnormal decreased marrow signal which could be secondary to marrow infiltration secondary to neoplasm, hematological disease, or myelofibrosis. Multilevel degenerative disc disease was also noted. Will order labs for further evaluation today. Discussed bone marrow biopsy for further evaluation. Patient agreeable. Will order. He is taking lactulose for hepatic encephalopathy. Labs per primary care provider November 26, 2024 with normal ammonia. Labs on August 21, 2024 with pancytopenia. White blood cell count 2.1. Hemoglobin 6.7 and hematocrit 23.2. Platelet count 77633. serum iron low at 26 and iron saturation 6%. Ferritin 13. Patient received blood transfusion and infusional iron. Patient has completed infusional iron. Patient does not feel like the infusional iron helped much. He still feels weak and tired. Patient denies any bleeding or signs of infection. Discussed repeat labs today. Will follow up with further recommendations. Will notify patient if infusional iron is required at this time. Bran Gregg PA-C [address], [place], [address], [place] - [facility] - [place] & [place] 12/12/2024 14:04:02
--- OUTSIDE RECORDS SUMMARY | 2025-01-14 16:55 | XMS_ITS | Continuity of Care Document ---
Author Organization [facility] Phone Care Team Providers Care Bull Float Finisher Name Role Phone CASE, SIMIN Rees Primary Attending CASE, SIMIN W Admitting AGUSTIN WARD Primary Care CASE, SIMIN Rees Surgeon ALLERGIES AND ADVERSE REACTIONS ALLERGIES AND ADVERSE REACTIONS Code System Allergy Substance Adverse Reaction Date Reaction (Severity) Comment Status Reported By Updated By [id number] RXNorm Celebrex Adverse reaction to substance fluid retention active [id number] on November 01, 2024 9:05:32 PM [facility] FAMILY HISTORY RELATION: Father Status: Cause of : Malignant tumor of stomach Age at : 60 SNOMED-CT Diagnosis Age At Onset [id number] Hypertensive disorder [id number] Smoker [id number] Alcoholism RELATION: Mother Status: Cause of : Unknown Age at : 74 SNOMED-CT Diagnosis Age At Onset [id number] Chronic obstructive lung disease RESULTS Patient: GREG Rees Date of : [birth year] 1 LABORATORY RESULTS Information is not available LABORATORY NARRATIVE RESULTS Information is not available RADIOLOGY RESULTS Information is not available PATHOLOGY NARRATIVE RESULTS ORDER 100: PATHOLOGY SPECIME N (INC: 35344-6) ORDER DATE: November 13, 2024 3:39:00 PM [place] Specimen Source: PATH Specimen Type: Refer to path ology laboratory PERFORMING LAB: [address] [id number] Final Result Date: November 14, 2024 5:33:00 PM UT TEST: PATHOLOGY SPECIMEN MICROBIOLOGY RESULTS No Micro Labs/Results Exist for Patient BLOOD ADMIN RESULTS Information is not available MEDICATIONS HOME MEDICATIONS Status RXNORM [facility] Medication Dose Route Frequency Dates Comments Reported By Updated By Active [id number] 16573 17397 5 Allopurinol Oral Tablet 300 MG 1.0 TAB ORAL DAILY Last Dose: 2024 2:00:0 0 PM [place] PATIENT [id number] on November 13, 2024 2:36:27 PM [facility] Active 957706 75571 57696 0 amLODIPine Besylate Oral Tablet 10 MG 1.0 TAB ORAL DAILY Last Dose: 2024 2:00:0 0 PM [place] PATIENT [id number] on November 13, 2024 2:36:42 PM [facility] Active 027899 60149 88734 0 buPROPion HCl ER (SR) Oral Tablet Extended Release 12 Hour 150 MG 1.0 TAB ORAL TID Last Dose: 2024 10:00: 00 AM [facility] PATIENT [id number] on November 13, 2024 2:37:03 PM [facility] Active 944188 26314 20105 1 busPIRone HCl Oral Tablet 10 MG 1.0 TAB ORAL BID Last Dose: 2024 10:00: 00 AM [facility] PATIENT [id number] on November 13, 2024 2:37:20 PM [facility] Active 900527 32056 94750 6 Ferrous Sulfate Oral Tablet 325 (65 Fe) MG 1.0 TAB ORAL DAILY Last Dose: 2024 10:00: 00 AM [facility] PATIENT [id number] on November 13, 2024 2:37:31 PM [facility] Active 944651 97933 23488 1 Gabapentin Oral Tablet 800 MG 1.0 TAB ORAL TID Last Dose: 2024 10:00: 00 AM [facility] PATIENT [id number] on November 13, 2024 2:37:42 PM [facility] Active 793548 87623 27529 2 hydrOXYzine Pamoate Oral Capsule 50 MG 1.0 CAP ORAL DAILYPRN Last Dose: 2024 2:00:0 0 AM UT PATIENT [id number] on November 13, 2024 2:37:53 PM [facility] Active 2719305 98617 43578 1 oxyCODONE-Ac etaminophen Oral Tablet 10-325 MG 1.0 TAB ORAL DAILYPRN Last Dose: PATIENT [id number] on November 12, 2024 5:18:36 PM [facility] Active 3275362 59955 77713 0 OxyCONTIN Oral Tablet ER 12 Hour Abuse-Deterr ent 40 MG 1.0 TAB ORAL BID Last Dose: 2024 10:00: 00 AM [facility] PATIENT [id number] on November 13, 2024 2:38:12 PM [facility] Active 324757 63890 27674 0 Pantoprazole Sodium Oral Tablet Delayed Release 40 MG 1.0 TAB ORAL DAILY Last Dose: 2024 2:00:0 0 PM [facility] PATIENT [id number] on November 13, 2024 2:38:34 PM [facility] Active 279568 30609 77665 5 Sertraline HCl Oral Tablet 100 MG 1.0 TAB ORAL DAILY Last Dose: 2024 2:00:0 0 PM [facility] PATIENT [id number] on November 13, 2024 2:38:51 PM [facility] Active 655303 50785 77354 9 SUMAtriptan Succinate Oral Tablet 100 MG 1.0 TAB ORAL DAILYPRN Last Dose: PATIENT [id number] on November 12, 2024 5:21:03 PM [facility] Active 611071 38112 23052 1 Tamsulosin HCl Oral Capsule 0.4 MG 1.0 TAB ORAL DAILY Last Dose: 2024 2:00:0 0 AM [facility] PATIENT [id number] on November 13, 2024 2:39:13 PM [facility] Active 426627 49986 47194 7 tiZANidine HCl Oral Capsule 4 MG 1.0 TAB ORAL DAILYPRN Last Dose: PATIENT [id number] on November 12, 2024 5:22:05 PM [facility] DISCHARGE MEDICATIONS Status [facility] Medication Dose Route Frequency Dates Comments Physician Updated By No Discharge Medication Info rmation Available INPATIENT MEDICATIONS Status [facility] Medication Dose Route Frequency Rat e Quantity Dates Comments Physician Updated By Kaitlin inued [id number] 5932 9099 901 PROPOFOL 200 MG/20ML EMUL 200.0 MG INTRAV ENOUS ONE TIME ONLY (SCHEDULED DOSE) 8.333 MG/HR Start: 2024 5:00:0 0 PM [facility] End: 2024 10:14: 00 PM [facility] CASE SIMIN Rees [id number] on November 15, 2024 5:04:00 PM [facility] Kaitlin inued [id number] 2999 7460 125 GLYCOPYRROL ATE 0.2 MG/ML SOLN 0.2 MG INTRAV ENOUS ONE TIME ONLY (SCHEDULED DOSE) 0.008 MG/HR Start: 2024 5:00:0 0 PM UTC End: 2024 10:14: 00 PM UTC CASE SIMIN Rees [id number] on November 15, 2024 5:04:00 PM [facility] [id number] 6063 3020 202 LIDOCAINE HCL 2 % SOLN 2.0 ML ONE TIME ONLY (SCHEDULED DOSE) 0.083 ML/HR Start: 2024 5:00:0 0 PM UTC End: 2024 10:14: 00 PM UTC CASE SIMIN Rees [id number] on November 15, 2024 5:04:00 PM UTC SOCIAL HISTORY SOCIAL HISTORY SNOMED-CT Social History Element Description Effective Dates Offered Cessation Comment UpdatedBy [id number] Current Tobacco smoking status Never Smoked [id number] on November 12, 2024 5:05:01 PM UT [...] value for each vital sign as of November 18, 2024 2:06:21 PM UT Loinc Code Vital Sign Activity Date Result Updated By [id number] Body height November 13 2:39:40 PM UT 180.34 cm (71.0 in) [id number] on November 13, 2024 2:39:40 PM [facility] 25896-6 Body mass index (BMI) [Ratio] November 13, 2024 2:39:40 PM UT 42.09 kg/m2 [id number] on November 13, 2024 2:39:40 PM UT 3140-1 Body Surface Area Derived From Formula November 13, 2024 2:39:40 PM UT 2.5119 m2 [id number] on November 13, 2024 2:39:40 PM [facility] 59191-4 Body weight Measured November 13, 2024 2:39:40 PM UTC 136.9 kg (302.0 lb) [id number] on November 13, 2024 2:39:40 PM UT PEDIATRIC GROWTH CHART - VITAL SIGNS This section displays Head C ircumference Percentile, Weight for Length Percentile and BMI Percentile Loinc Code Pediatric Measure Age (Months) Result Updat ed By No Pediatric Growth Chart Pe rcentile Information Available. PROCEDURES PATIENT PROCEDURES CODE SYSTEM DESCRIPTION STATUS PERFORMED DATE UPD ATED BY [id number] SNOMED-CT Esophagogastroduodenoscopy completed November 13, 2024 5:00:00 AM [facility] [id number] on November 13, 2024 3:29:30 PM [facility] PROCEDURE NOTE Procedure Note information i s not available. HEALTH CONCERNS Problems Concern Status Health Concern problem infor mation not available. Smoking Status Status Years Used Consumed packs p er day Health Concern smoking histo ry information not available. Family History Concern Status Health Concern family histor y information not available. ENCOUNTERS ENCOUNTER INFORMATION Reason for Visit EGD Admission November 13, 2024 2:14:[address] [address] Discharge November 13, 2024 10:14:00 PM UT DISCHARGED TO HOME OR SELF CARE ENCOUNTER DIAGNOSES Notes information is not dai ilable. Code System Diagnosis Onset Date Diagnosis information is not available. ABSTRACT DIAGNOSES Code System Diagnosis Updated By K92.2 ICD10 GASTROINTESTINAL HEMORRHAGE, UNSPECIFIED [id number] on November 18, 2024 2:05:35 PM [facility] K92.2 ICD10 GASTROINTESTINAL HEMORRHAGE, UNSPECIFIED [id number] on November 18, 2024 2:05:35 PM [facility] K22.89 ICD10 OTHER SPECIFIED DISEASE OF E SOPHAGUS [id number] on November 18, 2024 2:05:35 PM [facility] D50.9 ICD10 IRON DEFICIENCY ANEMIA, UNSP ECIFIED [id number] on November 18, 2024 2:05:35 PM [facility] K31.819 ICD10 ANGIODYSPLASIA O F STOMACH AND DUODENUM WITHOUT BLEEDING [id number] on November 18, 2024 2:05:35 PM [facility] R07.89 ICD10 OTHER CHEST PAIN [id number] on November 18, 2024 2:05:35 PM [facility] I25.10 ICD10 ATHEROSCLEROTIC HEART DISEASE OF [place] CORONARY ARTERY WITHOUT ANGINA PECTORIS [id number] on November 18, 2024 2:05:35 PM [facility] R01.1 ICD10 CARDIAC MURMUR, UNSPECIFIED [id number] on November 18, 2024 2:05:35 PM [facility] K75.81 ICD10 NONALCOHOLIC STEATOHEPATITIS (PERALTA) [id number] on November 18, 2024 2:05:35 PM UT E66.01 ICD10 MORBID (SEVERE) OBESITY DUE TO EXCESS CALORIES [id number] on November 18, 2024 2:05:35 PM UTC Z68.41 ICD10 BODY MASS INDEX [BMI] 40.0-4 4.9, ADULT [id number] on November 18, 2024 2:05:35 PM UTC G89.29 ICD10 OTHER CHRONIC PAIN [id number] o n November 18, 2024 2:05:35 PM UT K76.82 ICD10 HEPATIC ENCEPHALOPATHY [id number] on November 18, 2024 2:05:35 PM UT F41.9 ICD10 ANXIETY DISORDER, UNSPECIFIE D [id number] on November 18, 2024 2:05:35 PM UT I12.9 ICD10 HYPERTENSIVE CHR ONIC KIDNEY DISEASE WITH STAGE 1 THROUGH STAGE 4 CHRONIC KIDNEY DISEASE, OR UNSPECIFIED CHRONIC KIDNEY DISEASE [id number] on November 18, 2024 2:05:35 PM UTC E11.22 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 KIDNEY DISEASE [id number] on November 18, 2024 2:05:35 PM UTC N18.2 ICD10 CHRONIC KIDNEY DISEASE, STAG E 2 (MILD) [id number] on November 18, 2024 2:05:35 PM UT Z90.49 ICD10 ACQUIRED ABSENCE OF OTHER SPECIFIED PARTS OF DIGESTIVE TRACT [id number] on November 18, 2024 2:05:35 PM UT Z79.899 ICD10 OTHER CD REACTOR OPERATOR (CURRENT) DR UG THERAPY [id number] on November 18, 2024 2:05:35 PM UT Z88.8 ICD10 ALLERGY STATUS T O OTHER DRUGS, MEDICAMENTS AND BIOLOGICAL SUBSTANCES [id number] on November 18, 2024 2:05:35 PM UT CARE TEAM Care Bull Float Finisher Role SIMIN BARKER Primary Attending SIMIN CASE Admitting AGUSTIN WARD Primary Care SIMIN CASE Surgeon CARE TEAM CARE sales merchandise associate Role on Team Status Start Date End Date Update d By LUCERO MEDINA Surgeon normal November 13, 2024 2:14:00 PM UT November 13, 2024 10:14:00 PM UT [id number] on November 18, 2024 2:05:48 PM UT SYLVIA MEDINA PCP normal November 12, 2024 3:48:49 PM UT November 13, 2024 10:14:00 PM UTC [id number] on November 18, 2024 2:05:48 PM UTC CASE SIMIN Rees ADAM Attending normal November 12, 2024 3:48:48 PM UTC November 13, 2024 10:14:00 PM UTC [id number] on November 18, 2024 2:05:48 PM UTC CASE SIMIN Rees ADAM Admitting normal November 12, 2024 3:48:48 PM UTC November 13, 2024 10:14:00 PM UTC [id number] on November 18, 2024 2:05:48 PM UTC
--- OUTSIDE RECORDS SUMMARY | 2025-01-14 16:56 | XMS_ITS | Continuity of Care Document ---
Author Organization [facility] Phone Care Team Providers Care Nitrator Operator Name Role Phone BRAN AGUAYO Admitting AGUSTIN WARD Primary Care BRAN AGUAYO Unavailable BRAN AGUAYO Primary Attending ALLERGIES AND ADVERSE REACTIONS ALLERGIES AND ADVERSE REACTIONS Code System Allergy Substance Adverse Reaction Date Reaction (Severity) Comment Status Reported By Updated By [id number] RXNorm Celebrex Adverse reaction to substance fluid retention active [id number] on November 01, 2024 9:05:32 PM [facility] FAMILY HISTORY RELATION: Father Status: Cause of : Malignant tumor of stomach Age at : 60 SNOMED-CT Diagnosis Age At Onset [id number] Hypertensive disorder [id number] Smoker [id number] Alcoholism RELATION: Mother Status: Cause of : Unknown Age at : 74 SNOMED-CT Diagnosis Age At Onset [id number] Chronic obstructive lung disease RESULTS Patient: GREG Rees Date of : December 27 1 LABORATORY RESULTS ORDER 100: COMP METABOLIC PA RUDDY (LOINC: 20294-7) ORDER DATE: December 12, 2024 8:21:00 PM [facility] Specimen Source: PLASMA Specimen Type: Plasma specim en PERFORMING LAB: [address] [id number] Result Comment: Final Result Date: December 12, 2024 10:09:00 PM [facility] (TECH: AY) LOINC TEST FLAG RESULT REFERENCE RANGE UPDA KILO BY 2951-2 Sodium [Moles/volume ] in Serum or Plasma N 145 mmol/L 136 mmol/L - 145 mmol/L December 12, 2024 10:09:00 PM UT (TECH: AY) 2823-3 Potassium [Moles/volume] in Serum or Plasma N 4.1 mmol/L 3.6 mmol/L - 5.0 mmol/L December 12, 2024 10:09:00 PM UT (TECH: AY) 5-0 Chloride [Moles/volu me] in Serum or Plasma H 108 mmol/L 98 mmol/L - 107 mmol/L December 12, 2024 10:09:00 PM UT (TECH: AY) 8-9 Carbon dioxide, tota l [Moles/volume] in Serum or Plasma N 28.2 mmol/L 21.0 mmol/L - 32.0 mmol/L December 12, 2024 10:09:00 PM [facility] (TECH: AY) 70012-8 Anion gap in Blood N 12.9 M 2024 10:09:00 PM [facility] (TECH: AY) 2345-7 Glucose [Mass/volume ] in Serum or Plasma N 92 mg/dl 70 mg/dl - 120 mg/dl December 12, 2024 10:09:00 PM UT (TECH: AY) 6299-2 Urea nitrogen [Mass/volume] in Blood H 21 mg/dL 7 mg/dL - 18 mg/dL December 12, 2024 10:09:00 PM [facility] (TECH: AY) 26136-2 Creatinine [Moles/volume] in Blood H 1.4 mg/dL 0.6 mg/dL - 1.3 mg/dL December 12, 2024 10:09:00 PM [facility] (TECH: AY) 47525-5 Glomerular filtratio n rate/1.73 sq M.predicted by Creatinine-based formula (MDRD) L 57 mlpermin 60 mlpermin December 12, 2024 10:09:00 PM [facility] (TECH: AY) 06887-2 Osmolality of Serum or Plasma by calculated by sum of electrolytes H 304 mosm/kg 275 mosm/kg - 301 mosm/kg December 12, 2024 10:09:00 PM UT (TECH: AY) 2885-2 Protein [Mass/volume ] in Serum or Plasma N 6.4 g/dl 6.4 g/dl - 8.2 g/dl December 12, 2024 10:09:00 PM UT (TECH: AY) 1751-7 Albumin [Mass/volume ] in Serum or Plasma L 2.6 g/dl 3.4 g/dl - 5.0 g/dl December 12, 2024 10:09:00 PM UTC (TECH: AY) 2336-6 Globulin [Mass/volum e] in Serum N 3.8 December 12, 2024 10:09:00 PM UTC (TECH: AY) 1759-0 Albumin/Globulin [Ma ss Ratio] in Serum or Plasma N 0.7 0.7 - 2 December 12, 2024 10:09:00 PM UTC (TECH: AY) 36868-6 Calcium [Mass/volume ] in Serum or Plasma L 8.3 mg/dl 8.5 mg/dl - 10.5 mg/dl December 12, 2024 10:09:00 PM UTC (TECH: AY) 1975-2 Bilirubin.total [Mass/volume] in Serum or Plasma N 0.60 mg/dL 0.10 mg/dL - 1.00 mg/dL December 12, 2024 10:09:00 PM UT (TECH: AY) 1920-8 Aspartate aminotransferase [Enzymatic activity/volume] in Serum or Plasma N 29 U/L 0 U/L - 37 U/L December 12, 2024 10:09:00 PM UT (TECH: AY) 1742-6 Alanine aminotransferase [Enzymatic activity/volume] in Serum or Plasma N 23 U/L 0 U/L - 65 U/L December 12, 2024 10:09:00 PM UT (TECH: AY) 6768-6 Alkaline phosphatase [Enzymatic activity/volume] in Serum or Plasma H 127 U/L 46 U/L - 116 U/L December 12, 2024 10:09:00 PM UT (TECH: AY) ORDER 200: IRON STUDY IRON/T IBC/ SAT (LOINC: 93516-4) ORDER DATE: December 12, 2024 8:21:00 PM UT Specimen Source: SERUM Specimen Type: Serum specime n PERFORMING LAB: [address] [id number] Result Comment: Final Result Date: December 12, 2024 9:57:00 PM UT (TECH: KAC) LOINC TEST FLAG RESULT REFERENCE RANGE UPDA KILO BY 2498-4 Iron [Mass/volume] in Serum or Plasma L 19 mcg/ml 40 mcg/ml - 180 mcg/ml December 12, 2024 9:57:00 PM UTC (TECH: KAC) 2500-7 Iron binding capacity [Mass/volume] in Serum or Plasma N 350 mcg/dl 250 mcg/dl - 450 mcg/dl December 12, 2024 9:57:00 PM UTC (TECH: KAC) 2502-3 Iron saturation [Mass Fraction] in Serum or Plasma L 5 15 - 55 December 12, 2024 9:57:00 PM UTC (TECH: KAC) ORDER 300: CBC AUTO W DIFF ( LOINC: 18624-7) ORDER DATE: December 12, 2024 8:21:00 PM UTC Specimen Source: EDTA Specimen Type: Blood specime n with EDTA PERFORMING LAB: [address] [id number] Result Comment: Final Result Date: December 12, 2024 10:42:00 PM UTC (TECH: RR) LOINC TEST FLAG RESULT REFERENCE RANGE UPDA KILO BY 6690-2 Leukocytes [#/volume] in Blood by Automated count L 2.0 K/ul 4.0 K/ul - 10.5 K/ul December 12, 2024 10:42:00 PM UTC (TECH: RR) 789-8 Erythrocytes [#/volume] in Blood by Automated count L 3.4 M/mm3 4.7 M/mm3 - 6.1 M/mm3 December 12, 2024 10:42:00 PM UTC (TECH: RR) 718-7 Hemoglobin [Mass/volume] in Blood L 7.1 gm/dl 13.5 gm/dl - 18.0 gm/dl December 12, 2024 10:42:00 PM UTC (TECH: RR) 39590-3 Hematocrit [Volume Fraction] of Blood L 26.8 % 42.0 % - 52.0 % December 12 10:42:00 PM UTC (TECH: RR) 787-2 Erythrocyte mean corpuscular volume [Entitic volume] by Automated count N 80.0 fl 78 fl - 100 fl December 12, 2024 10:42:00 PM UTC (TECH: RR) 785-6 Erythrocyte mean corpuscular hemoglobin [Entitic mass] by Automated count L 21.2 pg 27 pg - 31 pg December 12, 2024 10:42:00 PM UTC (TECH: RR) 786-4 Erythrocyte mean corpuscular hemoglobin concentration [Mass/volume] by Automated count L 26.5 g/dl 32 g/dl - 36 g/dl December 12, 2024 10:42:00 PM UTC (TECH: RR) 13910-5 Erythrocyte distribution width [Ratio] H 16.2 % 11.5 % - 14.0 % December 12, 2024 10:42:00 PM UTC (TECH: RR) 777-3 Platelets [#/volume] in Blood by Automated count L 74 K/ul 150 K/ul - 450 K/ul December 12, 2024 10:42:00 PM UTC (TECH: RR) 19758-0 Platelet mean volume [Entitic volume] in Blood by Automated count N TNP 6 fl - 9.5 fl December 12, 2024 10:42:00 PM UTC (TECH: RR) 60160-3 Neutrophils/100 leukocytes in Blood H 68.2 % 43 % - 65 % December 12 10:42:00 PM UTC (TECH: RR) 736-9 Lymphocytes/100 leukocytes in Blood by Automated count L 18.5 % 20.5 % - 45.5 % December 12 10:42:00 PM UTC (TECH: RR) 5905-5 Monocytes/100 leukocytes in Blood by Automated count N 8.2 % 5.5 % - 11.7 % December 12 10:42:00 PM UTC (TECH: RR) 713-8 Eosinophils/100 leukocytes in Blood by Automated count H 3.1 % 0.9 % - 2.9 % December 12 10:42:00 PM UTC (TECH: RR) 706-2 Basophils/100 leukocytes in Blood by Automated count H 1.5 % 0.2 % - 1.0 % December 12 10:42:00 PM UTC (TECH: RR) 21327-7 Immature granulocytes/100 leukocytes in Blood by Automated count N 0.5 % 0.0 % - 0.8 % December 12 10:42:00 PM UTC (TECH: RR) 02749-2 Nucleated cells [#/volume] in Blood N 0.0 % December 12 10:42:00 PM UTC (TECH: RR) 00024-8 Neutrophils [#/volume] in Blood L 1.3 K/uL 2.2 K/uL - 4.8 K/uL December 12, 2024 10:42:00 PM UTC (TECH: RR) 731-0 Lymphocytes [#/volume] in Blood by Automated count L 0.4 CELL/MCL 1.3 CELL/MCL - 2.9 CELL/MCL December 12, 2024 10:42:00 PM UTC (TECH: RR) 742-7 Monocytes [#/volume] in Blood by Automated count L 0.2 CELL/MCL 0.3 CELL/MCL - 0.8 CELL/MCL December 12, 2024 10:42:00 PM UTC (TECH: RR) 711-2 Eosinophils [#/volume] in Blood by Automated count N 0.1 CELL/MCL 0 CELL/MCL - 0.2 CELL/MCL December 12, 2024 10:42:00 PM UTC (TECH: RR) 704-7 Basophils [#/volume] in Blood by Automated count N 0.0 CELL/MCL 0.0 CELL/MCL - 1.0 CELL/MCL December 12, 2024 10:42:00 PM UTC (TECH: RR) 24877-2 Immature granulocytes [#/volume] in Blood N 0.01 K/ul December 12 10:42:00 PM UTC (TECH: RR) 30165-4 Nucleated cells [#/volume] in Blood N 0.00 K/uL December 12 10:42:00 PM UTC (TECH: RR) 95483-3 Manual Differential panel - Blood N YES December 12, 2024 10:42:00 PM UTC (TECH: RR) 85494-3 Neutrophils.segmente d/100 leukocytes in Blood by Automated count N 75 % 42 % - 76 % December 12, 2024 10:42:00 PM UTC (TECH: RR) 736-9 Lymphocytes/100 leukocytes in Blood by Automated count N 15 % 15 % - 41 % December 12 10:42:00 PM UTC (TECH: RR) 5905-5 Monocytes/100 leukocytes in Blood by Automated count N 7 % 2 % - 9 % December 12 10:42:00 PM UTC (TECH: RR) 713-8 Eosinophils/100 leukocytes in Blood by Automated count N 3 % 0 % - 3 % December 12 10:42:00 PM UTC (TECH: RR) 82328-3 Nucleated erythrocytes/100 leukocytes [Ratio] in Blood N 1 % 0 % - 1 % December 12, 2024 10:42:00 PM UTC (TECH: RR) 778-1 Platelets [#/volume] in Blood by Manual count DECREASED ADEQUATE December 12, 2024 10:42:00 PM UTC (TECH: RR) 9317-9 Platelet adequacy [Presence] in Blood by Light microscopy N NORMAL NORMAL December 12 10:42:00 PM UTC (TECH: RR) 91540-3 Erythrocytes [Morphology] in Blood by Automated count ABNORMAL NORMAL December 12, 2024 10:42:00 PM UTC (TECH: RR) 702-1 Anisocytosis [Presence] in Blood by Light microscopy N 2+ NONE SEEN December 12 10:42:00 PM UTC (TECH: RR) 728-6 Hypochromia [Presence] in Blood by Light microscopy N 2+ NONE SEEN December 12 10:42:00 PM UTC (TECH: RR) ORDER 400: FERRITIN (LOINC: 2276-4) ORDER DATE: December 12, 2024 8:21:00 PM UTC Specimen Source: PLASMA Specimen Type: Plasma specim en PERFORMING LAB: [address] [id number] Result Comment: Final Result Date: December 12, 2024 10:09:00 PM UTC (TECH: AY) LOINC TEST FLAG RESULT REFERENCE RANGE UPDA KILO BY 2276-4 Ferritin [Mass/volume] in Serum or Plasma N 12 ng/ml 3 ng/ml - 244 ng/ml December 12, 2024 10:09:00 PM UTC (TECH: AY) ORDER 500: LDH LD (LOINC: 25 32-0) ORDER DATE: December 12, 2024 8:21:00 PM UTC Specimen Source: PLASMA Specimen Type: Plasma specim en PERFORMING LAB: [address] [id number] Result Comment: Final Result Date: December 12, 2024 10:09:00 PM UTC (TECH: AY) LOINC TEST FLAG RESULT REFERENCE RANGE UPDA KILO BY 2532-0 Lactate dehydrogenas e [Enzymatic activity/volume] in Serum or Plasma H 205 U/L 0 U/L - 190 U/L December 12, 2024 10:09:00 PM UTC (TECH: AY) ORDER 600: VITAMIN B12 AND F OLATE (LOINC: 2132-9) ORDER DATE: December 12, 2024 8:21:00 PM UTC Specimen Source: PLASMA Specimen Type: Plasma specim en PERFORMING LAB: [address] [id number] Result Comment: Final Result Date: December 12, 2024 10:27:00 PM UTC (TECH: AY) LOINC TEST FLAG RESULT REFERENCE RANGE UPDA KILO BY 2-9 Cobalamin (Vitamin B12) [Mass/volume] in Serum or Plasma N 607 pg/mL 193 pg/mL - 986 pg/mL December 12, 2024 10:27:00 PM UTC (TECH: AY) 2284-8 Folate [Mass/volume] in Serum or Plasma N 12.7 ng/mL 8.6 ng/mL - 58.9 ng/mL December 12, 2024 10:27:00 PM UTC (TECH: AY) ORDER 700: TYPE/SCREEN (LOIN C: 00546-5) ORDER DATE: December 12, 2024 8:21:00 PM UTC Specimen Source: Specimen Type: PERFORMING LAB: [address] [id number] Result Comment: Final Result Date: December 12, 2024 8:17:00 PM UTC (TECH: pzr) LOINC TEST [place] [address]-1 History of Procedure N Completed December 12, 2024 8:17:00 PM UTC (TECH: HL7) 84694-3 ABO and Rh group panel - Blood N O POSITIVE December 12, 2024 8:17:00 PM UTC (TECH: HL7) 890-4 Blood group antibody screen [Presence] in Serum or Plasma N NEGATIVE December 12, 2024 8:17:00 PM UTC (TECH: HL7) 85051-6 PROMIS item bank - cognitive function - version 2.0 N Completed December 12, 2024 8:17:00 PM UTC (TECH: pzr) ORDER 800: CHRONIC LEUKEMIA/ LYMPHOMA (LOINC: 67329-1) ORDER DATE: December 12, 2024 8:21:00 PM UTC Specimen Source: SERUM Specimen Type: Serum specime n PERFORMING LAB: [facility] [address] [facility] [id number] Result Comment: December 16 9:09:00 PM UTC . Result Comment: December 16, 2024 9:09:00 PM UTC 92% Result Comment: December 16, 2024 9:09:00 PM UTC Final Result Date: December 12, 2024 5:30:00 PM UTC (TECH: LAB) LOINC TEST [place] [address]-9 Specimen source [Rita ntifier] of Unspecified specimen N Comment November 5:30:00 PM UTC (TECH: LAB) 48010-9 Clinical information N Comment December 12, 2024 5:30:00 PM UTC (TECH: LAB) 8251-1 Service comment N Comment Asif 2024 5:30:00 PM UTC (TECH: LAB) 86379-3 Annotation comment Narrative N Comment December 12, 2024 5:30:00 PM UTC (TECH: LAB) 60998-3 Pathologist interpre tation of Unspecified specimen tests N Comment December 12, 2024 5:30:00 PM UTC (TECH: LAB) 13489-4 Leukocytes [#/volume ] in Blood N Comment December 12, 2024 5:30:00 PM UTC (TECH: LAB) 89041-9 Pathologist name N Comment Nov 5:30:00 PM UTC (TECH: LAB) 88068-4 Immunophenotyping study N Comment December 12, 2024 5:30:00 PM UTC (TECH: LAB) 24628-3 Voltage-gated calciu m channel Ab [Presence] in Serum N Comment December 12, 2024 5:30:00 PM UTC (TECH: LAB) 27948-2 Viable cells/100 manan ls in Unspecified specimen N Comment December 12 5:30:00 PM UTC (TECH: LAB) LABORATORY NARRATIVE RESULTS Information is not available RADIOLOGY RESULTS Information is not available PATHOLOGY NARRATIVE RESULTS Information is not available MICROBIOLOGY RESULTS No Micro Labs/Results Exist for Patient BLOOD ADMIN RESULTS Information is not available MEDICATIONS HOME MEDICATIONS Status RXNORM NDC Medication Dose Route Frequency Dates Comments Reported By Updated By Drug Treatment Unknown DISCHARGE MEDICATIONS Status RXNORM NDC Medication Dose Route Frequency Dates Comments Physician Updated By No Discharge Medication Info rmation Available INPATIENT MEDICATIONS Status RXNORM ND Medication Dose Route Frequency Rat e Quantity Dates Comments Physician Updated By No Inpatient Medication Info rmation Available SOCIAL HISTORY SOCIAL HISTORY SNOMED-CT Social History Element Description Effective Dates Offered Cessation Comment UpdatedBy [id number] Historical Tobacco smoking status Never Smoked [id number] on November 12, 2024 5:05:01 PM [facility] SOCIAL HISTORY - Gender Sex: Male SOCIAL HISTORY - Status : status i nformation is not available Intention in Next Year: intention information is not available SOCIAL HISTORY - Sexual Behavior Sexual Orientation Gender Identity SNOMED-CT Description SNO MED -CT Description Activity Level No of Partners Partner Type UpdatedBy Information is not available HEALTH CONCERNS Problems Concern Status Health Concern problem infor mation not available. Smoking Status Status Years Used Consumed packs p er day Health Concern smoking histo ry information not available. Family History Concern Status Health Concern family histor y information not available. ENCOUNTERS ENCOUNTER INFORMATION Reason for Visit Not Specified Admission December 12, 2024 5:28:[address] [id number] Discharge December 12, 2024 5:28:00 PM [facility] DI SCHARGED TO HOME OR SELF CARE ENCOUNTER DIAGNOSES Notes information is not dai ilable. Code System Diagnosis Onset Date Diagnosis information is not available. ABSTRACT DIAGNOSES Code System Diagnosis Updated By D72.819 ICD10 DECREASED WHITE BLOOD CELL COUNT, UNSPECIFIED [id number] on December 16, 2024 4:10:22 AM [facility] D64.9 ICD10 ANEMIA, UNSPECIFIED [id number] on December 16, 2024 4:10:22 AM [facility] D72.819 ICD10 DECREASED WHITE BLOOD CELL COUNT, UNSPECIFIED [id number] on December 16, 2024 4:10:22 AM [facility] D64.9 ICD10 ANEMIA, UNSPECIFIED [id number] on December 16, 2024 4:10:23 AM [facility] CARE TEAM Care Nitrator Operator Role BRAN AGUAYO Admitting AGUSTIN WARD Primary Care BRAN AGUAYO Referring BRAN AGUAYO Primary 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 Role on Team Status Start Date End Date Update d By SYLVIA MEDINA PCP normal December 12, 2024 4:00:00 AM [facility] December 12, 2024 5:28:00 PM UTC [id number] on December 12, 2024 5:30:14 PM [facility] DEDE DUDLEY Referring normal December 12, 2024 4:00:00 AM UTC December 12, 2024 5:28:00 PM UTC [id number] on December 12, 2024 5:30:14 PM [facility] DEDE DUDLEY Attending normal December 12, 2024 4:00:00 AM UT December 12, 2024 5:28:00 PM UT [id number] on December 12, 2024 5:30:14 PM [facility] DEDE DUDLEY Admitting normal December 12, 2024 4:00:00 AM UT December 12, 2024 5:28:00 PM UTC [id number] on December 12, 2024 5:30:14 PM [facility]
--- OUTSIDE RECORDS SUMMARY | 2025-01-14 16:56 | XMS_ITS | Continuity of Care Document ---
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 Recent EGD showed non-bleeding GAVE and no esophageal varices. He received 2 units PRBCs transfused 3 days ago due to hgb 7.1. He follows with hematology. He reports plan for bone marrow biopsy per hematology. 1) Symptomatic anemia: Repeat H & H today due to c/o increasing weakness since transfusion last week. - Will schedule SBFT and plan for capsule endoscopy to see if he has any proximal jejunal ectasias that may be reached with push enteroscopy. -Continue follow-up with hematology. 2) Cirrhosis: Etiology PERALTA by history, likely decompensated with suspected hepatic encephalopathy. MELD 3.0 = 11 on 06/24/24. He has voiced to me multiple times in the past that if liver transplant was ever indicated, he does not wish to pursue due to personal reasons. -EV: Small esophageal varices noted on recent EGD at 09/30/24. None on repeat EGD 11/2024. Repeat [address] Jones. -ascites: None overt at this time. He has chronic BLE edema for which he is taking lasix/aldactone as prescribed by his PCP. LE edema appears well controlled currently. -HE: He has complained of poor memory and some sleep disturbance for a few months . He previously deferred use of lactulose, so we prescribed Xifaxan. He tells me today he is not taking it due to expense with the medication. Will follow-up ED findings. Lactulose was again prescribed, but he won't take it due to diarrhea. -HCC screening: US liver 06/2024 without hepatic lesion identified. CT with contrast in the ED last month with no focal liver lesion seen. 3) GAVE: Plan for capsule endoscopy per above to see if any lesions are amendable to APC with push enteroscopy. -Continue infusional iron therapy 4) Tremor of upper and lower extremity: He reports multiple recent falls that he feels is not due to dizziness, syncope, or weakness but rather his legs just giving out . -refer to neurology for further evaluation. -recent non-contrast brain ct showed atrophy with otherwise unremarkable findings. He reports recent MRI at [facility] showed degenerative changes of the lower spine. [email or web address] Not available 12/16/2024 15:19:30 Plan of Treatment Reminders Order Date Submit Date Provider Last Modified By Organization Details Last Modified Time Details Appointments Establish ed Visit 15 min 2024 11:00A M Slade Lennon PA-C Not available Not available Not available OV EST 30 2024 01:00P M Bran Gregg PA-C Not available Not available Not available OV EST 30 2024 02:30P M Bran Gregg PA-C Not available Not available Not available Lab hemoglobi n + hematocri t, blood 2024 025 [place], [address], [address], [place], [address], 12/17/2024 07:13:[address] referral 2024 025 [email or web address] Radha Arauz MD, [address], [address], 12/16/2024 13:31:45 Procedures None recorded. Surgeries None recorded. Imaging RF, small bowel follow-th rough study 2024 025 [email or web address] [facility] Scheduling Department -New Scheduling Process, [address], [place], [address], 12/23/2024 08:41:07 Medication Orders None recorded. Patient TargetsNo targets recorded. Patient InstructionsNo instructions recorded. Reason for Referral Neurologist Referral for Abn ormal movement Referring Physician: Slade Lennon, Gastroenterology, Encounter Date: 12/16/2024 Results Created Date Observation Date Name Description Value Unit Range Abnormal Flag Note LastModifiedBy Organization Detail LastModifiedTime 12/13/19 25 12/06/2024 MRI proce dure (PROC ) No observ ation record ed. [address] (Med Record) [address] [facility] [address] [address], [place], [address], 2024 10:13:14 12/17/19 25 12/06/2024 MRI, cervi gil spine , w/wo contr ast No observ ation record ed. [email or web address] Not Available 2024 11:26:57 12/21/19 25 12/20/2024 RF, small bowel follo w-thr ough study No observ ation record ed. [address] [facility] [address], [place], [address], 2024 10:13:47 01/10/20 25 01/09/2025 [facility] [address] [place] [address] Phone: Fax: Name: BARTOLO HENDRICKSON Exam Date: 025 : 962 Age 64 years Gender : M Access ion: [id number] Physic linda: BRAN MUÑOZ ty: [facility] Facili ty HSV: Outpat ient Exam: CT BIOPSY BONE MARROW PROCED URE: CT-CUBA DED BONE MARROW BIOPSY PHYSIC LINDA ADMINI STERED CONSCI OUS SEDATI ON ATTEND ING Physic linda: Dr. Ten mendes MD PRIMAR Y OPERAT OR: Marcio luong SENIOR PRINCIPAL SOFTWARE ENGINEERStaceyC. Direct Superv ision: Willie nolasco PA-C. CLINIC AL HISTOR Y: Anemia PRIORS : 5 CT abd. COMMEN T: One or more dose reduct ion techni ques (e.g., Automa kilo exposu re contro l, adjust ment of the mA and/or kV accord ing to the patien t size, use of iterat mirella recons tructi on techni que) utiliz ed for this examin ation. TECHNI GIL: Inform ed consen t was [...] ucer needle was advanc ed into the dry cleaner helper ior right iliac bone. Next, the inner [...] monito red by the [facility] t. The physic linda spent a total [...] actory biopsy needle positi oning within the dry cleaner helper ior right ilium bone. IMPRES YUNG: Uncomp licate d CT-cuba ded bone marrow biopsy as descri bed. Pathol ogy pendsheba gMima Electr onical ly signed by: Ten mendes MD 2024 12:08 PM EDT RP Workst ation: [id number] Dictat ed By: Ten Weathers Legall y authen ticate d by SAMRA OMALLEY 01-09 09:44: 21 Transc ribed By: Transc ribed On: 9:44 AM Electr onical ly signed by: Ten Weathers 025 Thank you for [facility] Legall y authen ticate d by SAMRA OMALLEY 01-09 09:44: 21 CC'ed Logic: Orderi ng Provid er: WILLY SOTOMAYOR Attend ing Provid er: WILLY SOTOMAYOR Referr ing Provid er: WILLY SOTOMAYOR Admitt ing Provid er: [facility] [place] [address] - Physical Therapy [address] [facility], [place], [address], 01/09/2025 14:07:33 Result Notes None recorded. Problems Name Problem SNOMED Code Status Onset Date Resolution Date Notes Provider Name and Address Organization Details Recorded Time Weakness present 218152083 Active Deirdre Workman null, [place] - [facility] - [place] & [place] 14:32:40 Anemia 203720935 Active Deirdre Workman null, [place] [facility] [place] & [place] 14:32:40 High troponin I level 327959744 Active Deirdre Workman null, [place] [facility] [place] & [place] 4 14:32:40 Dyspnea on exertion 04394902 Active Deirdre Workbob null, [place] [facility] [place] & [place] 4 14:32:40 Gastrointe stinal hemorrhage 23662742 Active Deirdre Workbob null, [place] [facility] [place] & [place] 4 14:32:40 Atheroscle rosis of coronary artery without angina pectoris 2500732015772 03 Active 2023 Maxi Goodwin MD [address] [facility], [place], [address] , [place] - [facility] & [place] 4 13:56:37 Essential hypertensi on 00361246 Active 2023 Maxi Goodwin MD [address] [facility], [place], [address] , [place] [facility] & [place] 4 13:56:52 Heart murmur 59872055 Active 2023 Maxi Goodwin MD [address] [facility], [place], [address] , [place] - [facility] - [facility] & [place] 4 14:53:45 Anemia due to blood loss 278336126 Active 2024 Slade Lennon PA-C [address] [facility], [place], [address] , [place] - [facility] - [facility] & [place] 5 20:36:19 Abnormal movement 520490798 Active 2024 Slade Lennon PA-C [address] [facility], [place], [address] , [place] - [facility] - [facility] & [place] 5 13:24:16 Anxiety 79218066 Active 2021 Tarun Hopkins null, [place] [facility] & [place] 2 13:21:47 Chronic pain 47539708 Active 2021 Tarun Hopkins null, [place] [facility] [place] & [place] 2 13:21:53 Hypertensi ve disorder 82968664 Active 2021 Tarun Hopkins null, [place] - [facility] & [place] 2 13:22:00 Diabetes mellitus 99419870 Active 2021 Traun Hopkins null, [place] - [facility] & [place] 2 13:22:16 Cirrhosis of liver 91344768 Active [address], [place], [address] , [place] - [facility] & [place] 4 10:34:13 Iron deficiency anemia 71125304 Active [address], [place] [address] , [facility] - [facility] & [place] 4 10:34:22 Vascular ectasia of gastric antrum 59331656 Active [address], [facility] [address] , [facility] - [facility] & [place] 4 10:34:26 Upper gastrointe stinal bleeding 06728780 Active [address], [facility] [address] , [facility] - [facility] & [place] 4 10:34:38 Bilateral lower limb edema 656153868 Active [address], [facility] [address] , [facility] - [facility] & [place] 4 12:54:25 Hepatic encephalop athy 20221213 Active [address], [facility] [address] , [place] - [facility] & [place] 4 13:42:22 Problem Notes None recorded. Procedures Surgical History Date Name Laterality Status Provider Name and Address Organization Details Recorded Time 12/17/19 25 Venipuncture Gastro completed Janell FRENCH [facility] & [place] 12/16/2024 13:55:02 cholecystectomy completed Deirdre WOOD [facility] & [place] 10/07/2022 09:58:34 Knee arthroscopy/surgery [facility] [place] 10/07/2022 09:58:40 Imaging Results None recorded. Procedure Notes None recorded. Medical Equipment None Reported. Allergies Allergen ID Allergen Name Allergen Category Reaction Reaction Severity Criticality Documentation Date Start Date Code Code System Note Provider Name and Address Organization Details Recorded Time 745014 celecoxib medicatio n Not available Not available Not available 08/21/2024 11017 7 RxNorm Other react ions and sever ities : 'Adve rse react ion to subst ance' . Deirdre castrejon [facility] & [place] 14:32:25 80188 Celebrex medicatio n Not available Not available Not available 06/28/2022 41934 7 RxNorm Jerome Ale castrejon [facility] & [place] 10:41:02 Medications Name Sig Start Date Stop [...] Arterial blood by Pulse oximetry Heart rate Heart rate Systolic blood pressure Diastolic blood pressure Provider Name and Address Organization Details Last Updated DateTime 177.8 cm 44.3 kg/m2 664571. 25 g 97.6 [degF] 97 % 97 % 60 /min 63 /min 108 mm[Hg] 91 mm[Hg] [facility] & [place] 5 13:05:54 Social History Question Answer Notes LastModified by Organizat ion Details LastModified Time Tobacco Smoking Status Never Smoker Deirdre Olmstead [facility], [place] [facility] & [place] 10/07/2022 09:58:16 What Is Your Level Of Alcohol Consumption? None [email or web address] Information not available 10/07/2022 What Is Your Level Of Caffeine Consumption? Moderate [email or web address] Information not available 09/12/2024 Do You Use Any Illicit Or Recreational Drugs? No [email or web address] Information not available 10/07/2022 Sex: Unknown Functional Status None recorded. Mental Status None recorded. Family History Relationship Description Onset Age of this Age Resolved Age Notes LastModified by Organization Details LastModified Time Father Father stomac h cancer [email or web address] Not available 10/07/2022 09:57:37 Mother Mother COPD [email or web address] Not available 10/07 09:58:04 Medical History No medical history recorded. Immunizations Vaccine Type Date Status Note Provider Nam e and Address Organization Details Recorded Time Influenza, split virus, quadrivalent, preservative 9 completed Deirdre [employer], [place] [facility] & [place] 02/03/2023 09:34:06 COVID-19 vaccine, vector-nr, rS-Ad26, PF, 0.5 mL 1 completed Deirdre castrejon, [place] WOOD [facility] & [place] 02/03/2023 09:34:06 COVID-19 vaccine, vector-nr, rS-Ad26, PF, 0.5 mL 1 [facility] [place] [facility] & [place] 02/03/2023 09:34:06 COVID-19, mRNA, LNP-S, bivalent, PF, 30 mcg/0.3 mL dose 2 completed [facility], [place] [facility] & [place] 02/03/2023 09:34:06 Tdap 5 completed [facility], [place] [facility] & [place] 02/03/2023 09:34:06 Influenza, split virus, trivalent, PF 7 completed Deirdre Workman null, [place] - [facility] & [place] 02/03/2023 09:34:06 Influenza, split virus, trivalent, PF 3 completed Deirdre Workman [place] [facility] - [facility] & [place] 02/03/2023 09:34:06 Hep B, adult 6 completed Deirdre Workman [place] [facility] [facility] & [place] 02/03/2023 09:34:06 Hep B, adult 5 completed Deirdre Workman null[place] [facility] [place] [facility] & [place] 02/03/2023 09:34:06 Hep B, adult 5 completed Deirdre Workman [place] [facility] & [place] 02/03/2023 09:34:06 Influenza, split virus, quadrivalent, PF 0 completed Deirdre Workman [place] [facility] & [place] 02/03/2023 09:34:06 Influenza, split virus, quadrivalent, PF 1 completed Deirdre Workman null[place] [facility] & [place] 02/03/2023 09:34:06 Influenza, split virus, quadrivalent, PF 5 completed Deirdre Workman null[place] - [facility] & [place] 02/03/2023 09:34:06 Influenza, split virus, quadrivalent, PF 7 completed Deirdre Workman [place] [facility] & [place] 02/03/2023 09:34:06 Influenza, split virus, quadrivalent, PF 2 completed Deirdre Workman null[place] [facility] & [place] 02/03/2023 09:34:06 Influenza, split virus, quadrivalent, PF 6 completed Deirdre Workman null[place] [facility] & [place] 02/03/2023 09:34:06 Influenza, split virus, trivalent, PF 4 completed Deirdre Workman null[place] [facility] - [facility] & [place] 12/12/2024 13:08:09 Past Encounters Encounter ID Performer Location Encounter Start Date Encounter Closed Date Diagnosis/Indication Diagnosis SNOMED-CT Code Diagnosis ICD10 Code Diagnosis Note [id number] Bran Gregg PA-C [facility] [address] [place] [address] 12/12/2024 13:02:17 12/12/2024 13:26:58 Leukopenia 55129229 D72.819 Patient labs performed per his primary [...] Hemoglobin 14.2 and hematocrit 42. Platelet count 59384 Labs on June 28, 2022 with WBC [...] 3.8. Hemoglobin 11.1. Hematocrit 34.3. Platelet count 35328. MCV 91.5. GFR greater than 60. Albumin 3.2. Total protein 7.1. Normal liver function testing. Patient returns on February 03, 2023. Discussed repeat labs today. Patient returns on December 12, 2024. Patient was hospitaliz ed at [facility] for a gi bleed 09/30/24-. He had varices banded and received 7 units of blood at that time. Follow up EGD and November 13, 2024 with no evidence of blood loss. Labs on August 21, 2024 with pancytopen ia. White blood cell count 2.1. Hemoglobin 6.7 and hematocrit 23.2. Platelet count 77091. serum iron low at 26 and iron [...] iron is required at this time Anemia 778180321 D64.9 Patient labs performed per his primary care provider on {2021#}} with white blood cell count {{ 2.9#}}. [...] required at this time. Thrombocyt openic disorder 026027089 D69.6 Patient labs performed per his primary [...] Hemoglobin 14.2 and hematocrit 42. Platelet count 84429 Discussed thrombocyt openia likely secondary to cirrhosis. MRI of lum bar spine abnormal 640642942 R93.7 Patient returns on December 12, 2024. Patient states he has had muscle spasms and tremors for the past 6 months. States he has had multiple falls due to the tremor since spasms. He has difficulty eating with utensils at times due to tremors. He has been following up with his primary care provider for this. He recently had MRI of his back [facility]. Reviewed MRI today and it states there is diffuse abnormal decreased marrow signal which could be secondary to marrow infiltrati on secondary to neoplasm, hematologi gil disease, or myelofibro sis. Multilevel degenerati ve disc disease was also noted. Will order labs for further evaluation today. Discussed bone marrow biopsy for further evaluation . Patient agreeable. Will order. History of esophageal varices [id number] Z87.19 Patient returns on December 12, 2024. Patient was hospitaliz ed at [facility] for a gi bleed 09/30/24-. He had varices banded and received 7 units of blood at that time. Follow up EGD and November 13, 2024 with no evidence of blood loss. [id number] Slade Lennon PA-C [facility] [address] [facility] [address] [place] [address] 12/16/2024 12:28:41 12/16/2024 13:52:09 Anemia due to blood loss 348975932 D50.0 Cirrhosis of liver 21937 007 K74.60 Hepatic encephalopathy 32069172 K76.82 Vascular e ctasia of gastric antrum 91048598 K31.819 Abnormal movement 372318 002 G25.9 Health Concerns Section Related Observation LastModified by Organization Detai ls LastModified Time None Recorded Concern Status LastModified by Organization Details LastModified Time None Recorded Payers Encounter Date Sequence Insurance Name Policy Number Policy Grimm Covered Member ID Grimm Member ID Guarantor Name 12/16/2024 2 MEDICAID-[facility] CHOICES - FFS/TRADITION AL Bartolo Hendrickson [id number] Bartolo Hendrickson 12/16/2024 1 [facility] (MEDICARE REPLACEMENT/A DVANTAGE - HMO) [id number] Bartolo Hendrickosn [id number] Bartolo Hendrickson Notes Date Note Type Note Provider Name and Address Organization Details Recorded Time 12/16/2024 text/html PREVIOUS ( 5): Mr. 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 He presents to the office today for follow-up from a recent hospitalization at the [facility]. He was air-lifted there earlier this month from [facility] due to upper GI bleed and severe anemia related to GAVE. Eight bands were placed at that time. Small esophageal varices and mucosa suspicious for Ambriz's metaplasia were also noted. Today, he complains of progressive weakness and unsteadiness on his feet. He reports multiple falls recently due to weakness. He suffered fall with injury to the right chest wall a few days ago and is having soreness near the lateral fight breast. He complains of new bilateral hand tremor. He denies hematemesis, melena, or hematochezia. CURRENT (12/16/24): Mr. 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 He was seen in the ED after his most recent OV due to weakness and fall injury. He underwent imaging that showed degenerative changes in the Lumbar spine, cirrhosis with splenomegaly, and CAD noted on CT. EKG showed ischemic changes. Echocardiogram showed ejection fraction 55-60%. Indeterminate left ventricular filling pattern, moderately dilated left atrium and no hemodynamically significant valvular heart disease. CT Brain w/o showed only atrophy.He had labs with Hematology on that showed iron deficiency with Hgb 7.1. He was transfused 2 units PRBC with repeat Hgb 8.7. He states he felt well following the transfusion, but started feeling weak again yesterday. He had EGD with Dr. Jones last month that showed GAVE without active bleeding. No esophageal varices were seen.He also complains of bilateral upper and lower extremity tremor and states that his legs will suddenly give out without warning. He reports multiple falls over the past couple of months. He complains of intermittent pain radiating from his buttocks down the back of his legs. Slade Lennon PA-C [address] , [place], [address], [facility] - [place] - [place] & [place] 12/16/2024 15:20:09
--- OUTSIDE RECORDS SUMMARY | 2025-01-14 16:56 | XMS_ITS | Continuity of Care Document ---
Author Organization [facility] Address [address] [facility] [address] [place] [address] Care Team Providers Care Brick Tosser Name Role Phone AGUSTIN WARD Primary Care [...] Not available Not available Not available Lab CMP, serum or plasma 2024 025 ree [facility], [address] [place], [address], 01/07/2025 08:45:30 CBC w/ auto diff 2024 025 JANA [facility], [address] [place], [address], 12/31/2024 15:15:43 type + screen, blood 2024 025 [email or web address] [facility], [address] [place], [address], 01/07/2025 08:45:30 Referral None recorded. Procedures None recorded. Surgeries None recorded. Imaging None recorded. Medication Orders None recorded. Patient TargetsNo targets recorded. Patient InstructionsNo instructions recorded. Reason for Referral None Reported. Results Created Date Observation Date Name Description Value Unit Range Abnormal Flag Note LastModifiedBy Organization Detail LastModifiedTime 12/13/1912/06/2024 MRI proce dure (PROC ) No observ ation record ed. [email or web address] [facility] (Med Record) [address], [place], [address], 2024 10:13:14 12/17/19 25 12/06/2024 MRI, cervi gil spine , w/wo contr ast No observ ation record ed. [email or web address] Not Available 2024 11:26:57 12/21/19 25 12/20/2024 RF, small bowel follo w-thr ough study No observ ation record ed. [email or web address] [facility] [address], [place], [address], 2024 10:13:47 01/10/20 25 01/09/2025 [facility] [address] [place] [address] Phone: Fax: Name: BARTOLO HENDRICKSON Exam Date: 025 : 962 Age 64 years Gender : M Access ion: [id number] Physic linda: BRAN MUÑOZ Facili ty: [place] Facili ty HSV: Outpat ient Exam: CT BIOPSY BONE MARROW PROCED URE: CT-CUBA DED BONE MARROW BIOPSY PHYSIC LINDA ADMINI STERED CONSCI OUS SEDATI ON ATTEND ING Physic linda: Dr. Ten mendes MD PRIMAR Y OPERAT OR: Marcio luong, CONTAINER WASHER-C. Direct Superv ision: Willie nolasco PA-C. CLINIC [...] etized with 1% lidoca ine. Under interm [facility] CT guidan ce an 11-gau ge introd ucer needle was advanc ed into the marketing assistant manager ior right iliac bone. Next, the inner [...] contin uously monito red by the jade kerr g staff presen t. The physic linda spent [...] actory biopsy needle positi oning within the marketing assistant manager ior right ilium bone. IMPRES YUNG: Uncomp licate d CT-cuba ded bone marrow biopsy as descri bed. Pathol ograoul chavis gMima Electr onical ly signed by: Ten mendes MD 2024 12:08 PM EDT RP Workst ation: [id number] Dictat ed By: Ten Weathers Legall y authen ticate d by SAMRA OMALLEY 01-09 09:44: 21 Transc ribed By: Transc ribed On: 9:44 AM Electr onical ly signed by: Ten Weathers Thank you for referr BARTOLO Viramontes to [facility] it Hospit al. Legall y authen ticate d by SAMRA OMALLEY 01-09 09:44: 21 CC'ed Logic: Orderi ng Provid er: WILLY SOTOMAYOR Attend ing Provid er: WILLY SOTOMAYOR Referr ing Provid er: WILLY SOTOMAYOR Admitt ing Provid er: WILLY [facility]OR [facility] [place] [address] - Physical Therapy [address] [facility], [place], [address], 01/09/2025 14:07:33 Result Notes None recorded. Problems Name Problem SNOMED Code Status Onset Date Resolution Date Notes Provider Name and Address Organization Details Recorded Time Weakness present 540708084 Active Deirdre Workbob null, [place] - [facility] - [place] & [place] 14:32:40 Anemia 757700768 Active Deirdre Workbob null, [place] - [facility] - [place] & [place] 14:32:40 High troponin I level 815122043 Active Deirdre Workbob null, [place] - [facility] - [place] & [place] 14:32:40 Dyspnea on exertion 40382411 Active Deirdre Workbob null, [place] - [facility] [place] & [place] 14:32:40 Gastrointe stinal hemorrhage 02953269 Active Deirdre Workbob null, [place] - [facility] - [place] & [place] 4 14:32:40 Atheroscle rosis of coronary artery without angina pectoris 9885108819942 03 Active 2023 Maxi Goodwin MD [address] [facility], [place], [address] , [place] [facility] [place] 4 13:56:37 Essential hypertensi on 36306807 Active 2023 Maxi Goodwin MD [address] [facility], [place], [address] , [place] [facility] & [place] 4 13:56:52 Heart murmur 10811613 Active 2023 Maxi Goodwin MD [address] [facility], [place], [address] , [place] [facility] [place] & [place] 4 14:53:45 Anemia due to blood loss 968608000 Active 2024 Slade Lennon PA-C [address] , [place], [address] , [place] [facility] [place] & [place] 5 20:36:19 Abnormal movement 563266020 Active 2024 Slade Lennon PA-C [address] , [place], [address] , [place] [facility] & [place] 5 13:24:16 Anxiety 72530049 Active 2021 Tarun Hopkins null, [place] [facility] & [place] 2 13:21:47 Chronic pain 71839983 Active 2021 Tarun Hopkins null, [place] [facility] [place] [facility] & [place] 2 13:21:53 Hypertensi ve disorder 82833195 Active 2021 Tarun Hopkins null, [place] [facility] [place] [facility] & [place] 2 13:22:00 Diabetes mellitus 84868597 Active 2021 Tarun Hopkins null, [place] [facility] [place] [facility] & [place] 2 13:22:16 Cirrhosis of liver 14652382 Active 2023 Slade Lennon PA-C [address], [place], [address] , [facility] - [facility] & [place] 4 10:34:13 Iron deficiency anemia 59398048 Active 2023 Slade Lennon PA-C [address], [place], [address] , [place] - [facility] & [place] 4 10:34:22 Vascular ectasia of gastric antrum 07002839 Active 2023 Slade Lennon PA-C [address], [place], [address] , [facility] - [facility] & [place] 4 10:34:26 Upper gastrointe stinal bleeding 16541397 Active [address], [place], [address] , [facility] - [facility] & [place] 4 10:34:38 Bilateral lower limb edema 994697212 Active 2023 Slade Lennon PA-C [address], [place], [address] , [facility] - [facility] & [place] 4 12:54:25 Hepatic encephalop athy 65967373 Active [address], [place], [address] , [place] - [facility] & [place] 4 13:42:22 Problem Notes None recorded. Procedures Surgical History Date Name Laterality Status Provider Name and Address Organization Details Recorded Time 12/17/19 25 Venipuncture Gastro completed Janell FRENCH - [facility] & [place] 12/16/2024 13:55:02 cholecystectomy completed Deirdre Ibarra LPKENA [facility] & [place] 10/07/2022 09:58:34 Knee arthroscopy/surgery completed Deirdre Ibarra [facility] & [place] 10/07/2022 09:58:40 Imaging Results None recorded. Procedure Notes None recorded. Medical Equipment None Reported. Allergies Allergen ID Allergen Name Allergen Category Reaction Reaction Severity Criticality Documentation Date Start Date Code Code System Note Provider Name and Address Organization Details Recorded Time 333635 celecoxib medicatio n Not available Not available Not available 08/21/2024 51053 7 RxNorm Other react ions and sever ities : 'Adve rse react ion to subst ance' . [place] Luna LPKENA [facility] & [place] 4 14:32:25 35987 Celebrex medicatio n Not available Not available Not available 06/28/2022 50401 7 RxNorm [place] [facility] & [place] 2 10:41:02 Medications Name Sig Start Date [...] Available Not Available pantoprazol e 40 mg tablet,matrha yed release 40 mg by oral route. [...] Available Vitals Date Recorded Body height Body temperature Oxygen saturation Oxygen saturation in Arterial blood by Pulse oximetry Heart rate Respiratory rate Systolic blood pressure Diastolic blood pressure Provider Name and Address Organization Details Last Updated DateTime 5 177.8 cm 98 [degF] 95 % 95 % 68 /min 24 /min 105 mm[Hg] 48 mm[Hg] Deirdre Ibarra [facility] & [place] 13:45:00 Social History Question Answer Notes LastModified by Organizat ion Details LastModified Time Tobacco Smoking Status Never Smoker Deirdre castrejon, [place] Ibarra [facility] & [place] 10/07/2022 09:58:16 What Is Your Level Of Alcohol Consumption? None [email or web address] Information not available 10/07/2022 What Is Your Level Of Caffeine Consumption? Moderate [email or web address] Information not available 09/12/2024 Do You Use Any Illicit Or Recreational Drugs? No Information not available 10/07/2022 Sex: Unknown Functional Status None recorded. Mental Status None recorded. Family History Relationship Description Onset Age of this Age Resolved Age Notes LastModified by Organization Details LastModified Time Father Father stomac h cancer [email or web address] Not available 10/07/2022 09:57:37 Mother Mother COPD [email or web address] Not available 10/07 09:58:04 Medical History No medical history recorded. Immunizations Vaccine Type Date Status Note Provider Nam e and Address Organization Details Recorded Time Influenza, split virus, quadrivalent, preservative 9 completed Deirdre Workman null, [place] [facility] [place] 02/03/2023 09:34:06 COVID-19 vaccine, vector-nr, rS-Ad26, PF, 0.5 mL 1 completed Deirdre Workman null, [place] [facility] [place] 02/03/2023 09:34:06 COVID-19 vaccine, vector-nr, rS-Ad26, PF, 0.5 mL 1 completed Deirdre Workman null, [place] [facility] [place] 02/03/2023 09:34:06 COVID-19, mRNA, LNP-S, bivalent, PF, 30 mcg/0.3 mL dose 2 completed Deirdre Workman null, [place] [facility] [place] 02/03/2023 09:34:06 Tdap 5 completed Deirdre Workman null[place] [facility] [place] 02/03/2023 09:34:06 Influenza, split virus, trivalent, PF 7 completed Deirdre Workman [place] [facility] [place] 02/03/2023 09:34:06 Influenza, split virus, trivalent, PF 3 completed Deirdre Workman [place] [facility] [place] 02/03/2023 09:34:06 Hep B, adult 6 completed Deirdre Workman [place] [facility] [place] 02/03/2023 09:34:06 Hep B, adult 5 completed Deirdre Workman [place] [facility] [place] 02/03/2023 09:34:06 Hep B, adult 5 completed Deirdre Workman null[place] 02/03/2023 09:34:06 Influenza, split virus, quadrivalent, PF 0 completed Deirdre Workman [place] [facility] 02/03/2023 09:34:06 Influenza, split virus, quadrivalent, PF 1 completed Deirdre Workman [place] 02/03/2023 09:34:06 Influenza, split virus, quadrivalent, PF 5 completed Deirdre Workman [place] 02/03/2023 09:34:06 Influenza, split virus, quadrivalent, PF 7 completed Deirdre Workman [place] 02/03/2023 09:34:06 Influenza, split virus, quadrivalent, PF 2 completed Deirdre Workman [place] 02/03/2023 09:34:06 Influenza, split virus, quadrivalent, PF 6 completed Deirdre Workman [place] 02/03/2023 09:34:06 Influenza, split virus, trivalent, PF 4 completed Deirdre Workman null, [place] [facility] 12/12/2024 13:08:09 Past Encounters Encounter ID Performer Location Encounter Start Date Encounter Closed Date Diagnosis/Indication Diagnosis SNOMED-CT Code Diagnosis ICD10 Code Diagnosis Note [id number] Bran Gregg PA-C [facility] [address] [facility] [address] [place] [address] 12/12/2024 13:02:17 12/12/2024 13:26:58 Leukopenia 91599547 D72.819 Patient labs performed per his primary [...] Hemoglobin 14.2 and hematocrit 42. Platelet count 22335 Labs on June 28, 2022 with WBC [...] 3.8. Hemoglobin 11.1. Hematocrit 34.3. Platelet count 10295. MCV 91.5. GFR greater than 60. Albumin 3.2. Total protein 7.1. Normal liver function testing. Patient returns on February 03, 2023. Discussed repeat labs today. Patient returns on December 12, 2024. Patient was hospitaliz ed at [facility] for a gi bleed 09/30/24-. He had varices banded and received 7 units of blood at that time. Follow up EGD and November 13, 2024 with no evidence of blood loss. Labs on August 21, 2024 with pancytopen ia. White blood cell count 2.1. Hemoglobin 6.7 and hematocrit 23.2. Platelet count 74711. serum iron low at 26 and iron [...] iron is required at this time Anemia 165870519 D64.9 Patient labs performed per his primary [...] required at this time. Thrombocyt openic disorder 643839284 D69.6 Patient labs performed per his primary [...] Hemoglobin 14.2 and hematocrit 42. Platelet count 16178 Discussed thrombocyt openia likely secondary to cirrhosis. MRI of lum bar spine abnormal 643804969 R93.7 Patient returns on December 12, 2024. Patient states he has had muscle spasms and tremors for the past 6 months. States he has had multiple falls due to the tremor since spasms. He has difficulty eating with utensils at times due to tremors. He has been following up with his primary care provider for this. He recently had MRI of his back [facility]. Reviewed MRI today and it states there is diffuse abnormal decreased marrow signal which could be secondary to marrow infiltrati on secondary to neoplasm, hematologi gil disease, or myelofibro sis. Multilevel degenerati ve disc disease was also noted. Will order labs for further evaluation today. Discussed bone marrow biopsy for further evaluation . Patient agreeable. Will order. History of esophageal varices [id number] 9941250 Z87.19 Patient returns on December 12, 2024. Patient was hospitaliz ed at [facility] for a gi bleed 09/30/24-. He had varices banded and received 7 units of blood at that time. Follow up EGD and November 13, 2024 with no evidence of blood loss. [id number] Slade Lennon PA-C [facility] [address] [place] [address] 12/16/2024 12:28:41 12/16/2024 13:52:09 Anemia due to blood loss 544302083 D50.0 Cirrhosis of liver 39305 007 K74.60 Hepatic encephalopathy 21042309 K76.82 Vascular e ctasia of gastric antrum 94151048 K31.819 Abnormal movement 485002 002 G25.9 [id number] Bran Gregg PA-C [facility] [address] [facility] [address] [place] [address] 12/31/2024 13:33:20 12/31/2024 14:30:13 Leukopenia 94195177 D72.819 Patient labs performed per his primary [...] Hemoglobin 14.2 and hematocrit 42. Platelet count 75651 Labs on June 28, 2022 with WBC [...] 3.8. Hemoglobin 11.1. Hematocrit 34.3. Platelet count 25115. MCV 91.5. GFR greater than 60. Albumin 3.2. Total protein 7.1. Normal liver function testing. Patient returns on February 03, 2023. Discussed repeat labs today. Patient was hospitaliz ed at [facility] for a GI bleed 09/30/24-. He had varices banded and received 7 units of blood at that time. Follow up EGD and November 13, 2024 with no evidence of blood loss. Patient states he has had all over muscle spasms for the past 6 months. States he has had multiple falls due to the muscle spasms. He has difficulty eating with utensils at times due to tremors. He has been following up with his primary care provider for this. He recently had MRI of his back [facility]. Reviewed MRI and it states there is diffuse abnormal decreased marrow signal which could be secondary to marrow infiltrati on secondary to neoplasm, hematologi gil disease, or myelofibro sis. Multilevel degenerati ve disc disease was also noted. Discussed bone marrow biopsy for further evaluation . He is taking lactulose for hepatic encephalop athy. Labs per primary care provider November 26, 2024 with normal ammonia. Labs on August 21, 2024 with pancytopen ia. White blood cell count 2.1. Hemoglobin 6.7 and hematocrit 23.2. Platelet count 66755. serum iron low at 26 and iron saturation 6%. Ferritin 13. Labs on December 12, 2024 with pancytopen ia. White blood cell count 2. Patient is asymptomat ic. Patient denies any signs of infection. Leukopenia likely secondary to cirrhosis. Anemia 602167412 D64.9 Patient labs performed per his primary care provider on {{ Septemb er 2021#}} with white blood cell count [...] Ferritin 71. Vitamin B12 normal at 982. Patient was hospitaliz ed at [facility] for a GI bleed 09/30/24-. He had varices banded and received 7 units of blood at that time. Follow up EGD and November 13, 2024 with no evidence of blood loss. Patient states he has had all over muscle spasms for the past 6 months. States he has had multiple falls due to the muscle spasms. He has difficulty eating with utensils at times due to tremors. He has been following up with his primary care provider for this. He recently had MRI of his back [facility]. Reviewed MRI and it states there is diffuse abnormal decreased marrow signal which could be secondary to marrow infiltrati on secondary to neoplasm, hematologi gil disease, or myelofibro sis. Multilevel degenerati ve disc disease was also noted. Discussed bone marrow biopsy for further evaluation . He is taking lactulose for hepatic encephalop athy. Labs per primary care provider November 26, 2024 with normal ammonia. Labs on August 21, 2024 with pancytopen ia. White blood cell count 2.1. Hemoglobin 6.7 and hematocrit 23.2. Platelet count 39103. serum iron low at 26 and iron saturation 6%. Ferritin 13. Patient returns on December 31, 2024. Bone marrow biopsy was ordered at previous visit but it has not been scheduled yet. Will make sure this is scheduled. Labs on December 12, 2024 with pancytopen ia. White blood cell count 2. Hemoglobin 7.1 and hematocrit 26.8. Platelet count 66213. Serum iron low at 19 and iron saturation 5%. Ferritin 12. Normal flow cytometry. Patient received blood transfusio n 2 units prbcs and is currently receiving infusional iron. He still feels weak and tired but is feeling better with the IV iron. Denies any bleeding. Capsule endoscopy 2024. Results are pending. Labs today on December 31, 2024 with hemoglobin 7.8. Patient does not want a blood transfusio n at this time. He has had all over muscle spasms. He has been referred to Neurology. He states he is scheduled for appointmen t January 13, 2025 Patient denies any bleeding or signs of infection. Will continue to monitor hemoglobin carefully. Will repeat labs in about 2 weeks or sooner should the need arise. Thrombocyt openic disorder 134180903 D69.6 Patient labs performed per his primary [...] Hemoglobin 14.2 and hematocrit 42. Platelet count 17278 Discussed thrombocyt openia likely secondary to cirrhosis. MRI of lum bar spine abnormal 972896170 R93.7 Patient states he has had all over muscle spasms for the past 6 months. States he has had multiple falls due to the muscle spasms. He has difficulty eating with utensils at times due to tremors. He has been following up with his primary care provider for this. He recently had MRI of his back [facility]. Reviewed MRI and it states there is diffuse abnormal decreased marrow signal which could be secondary to marrow infiltrati on secondary to neoplasm, hematologi gil disease, or myelofibro sis. Multilevel degenerati ve disc disease was also noted. Discussed bone marrow biopsy for further evaluation . Patient returns on December 31, 2024. Bone marrow biopsy was ordered at previous visit but it has not been scheduled yet. Will make sure this is scheduled. History of esophageal varices [id number] 3867433 Z87.19 Patient returns on December 12, 2024. Patient was hospitaliz ed at [facility] for a gi bleed 09/30/24-. He had varices banded and received 7 units of blood at that time. Follow up EGD and November 13, 2024 with no evidence of blood loss. Capsule endoscopy 2024. Results are pending. Will follow up. Health Concerns Section Related Observation LastModified by Organization Detai ls LastModified Time None Recorded Concern Status LastModified by Organization Details LastModified Time None Recorded Payers Encounter Date Sequence Insurance Name Policy Number Policy Grimm Covered Member ID Grimm Member ID Guarantor Name 12/31/2024 2 MEDICAID-[facility] CHOICES - FFS/TRADITION AL Bartolo Hendrickson [id number] Bartolo Hendrickson 12/31/2024 1 [facility] (MEDICARE REPLACEMENT/A DVANTAGE - HMO) [id number] Bartolo Hendrickson [id number] Bartolo Hendrickson Notes Date Note Type Note Provider Name and Address Organization Details Recorded Time 12/31/2024 text/html 63-year-old male returns for evaluation of [...] Hemoglobin 14.2 and hematocrit 42. Platelet count 95183 Patient does not smoke. Denies any recent [...] 3.8. Hemoglobin 11.1. Hematocrit 34.3. Platelet count 05634. MCV 91.5. GFR greater than 60. Albumin 3.2. Total protein 7.1. Normal liver function testing. Labs on February 03, 2023 with improvement in platelet count 981851. Improvement in white blood cell count 3.4. [...] cell count 2.3. Hemoglobin 11.1. Platelet count 96373. Serum iron low at 24 and iron [...] with thermal therapy applied May 2024. Patient was hospitalized at [facility] for a GI bleed 09/30/24-10/03/24. He had varices banded and received 7 units of blood at that time. Follow up EGD and November 13, 2024 with no evidence of blood loss. Patient states he has had all over muscle spasms for the past 6 months. States he has had multiple falls due to the muscle spasms. He has difficulty eating with utensils at times due to tremors. He has been following up with his primary care provider for this. He recently had MRI of his back [facility]. Reviewed MRI and it states there is diffuse abnormal decreased marrow signal which could be secondary to marrow infiltration secondary to neoplasm, hematological disease, or myelofibrosis. Multilevel degenerative disc disease was also noted. Discussed bone marrow biopsy for further evaluation. He is taking lactulose for hepatic encephalopathy. Labs per primary care provider November 26, 2024 with normal ammonia. Labs on August 21, 2024 with pancytopenia. White blood cell count 2.1. Hemoglobin 6.7 and hematocrit 23.2. Platelet count 53587. serum iron low at 26 and iron saturation 6%. Ferritin 13. Patient returns on December 31, 2024. Bone marrow biopsy was ordered at previous visit but it has not been scheduled yet. Will make sure this is scheduled. Labs on December 12, 2024 with pancytopenia. White blood cell count 2. Hemoglobin 7.1 and hematocrit 26.8. Platelet count 02791. Serum iron low at 19 and iron saturation 5%. Ferritin 12. Normal flow cytometry. Patient received blood transfusion 2 units prbcs and is currently receiving infusional iron. He still feels weak and tired but is feeling better with the IV iron. Denies any bleeding. Capsule endoscopy 2024. Results are pending. Labs today on December 31, 2024 with hemoglobin 7.8. Patient does not want a blood transfusion at this time. He has had all over muscle spasms. He has been referred to Neurology. He states he is scheduled for appointment January 13, 2025 Patient denies any bleeding or signs of infection. Will continue to monitor hemoglobin carefully. Will repeat labs in about 2 weeks or sooner should the need arise. Bran Gregg PA-C [address], [place], [address], [place] [facility] - [place] & [place] 12/31/2024 14:44:31
--- OUTSIDE RECORDS SUMMARY | 2025-01-14 16:57 | XMS_ITS | Data Portability ---
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 8 bands were placed on 09/30/24 with recommendation to repeat in 1 month. He complains of progressive fatigue, unsteadiness, and frequent falls. 1) Symptomatic anemia: The patient does not appear stable on exam. He is agreeable to staff assisted transport via wheelchair to the emergency department for further evaluation. I have contacted the ER provider and discussed the patient's history and recent events leading to today's presentation. I will follow-up those results. Will plan to contact the patient to schedule repeat EGD, unless he is admitted at which time we may pursue inpatient endoscopy. 2) Cirrhosis: Etiology PERALTA by history, likely decompensated with suspected hepatic encephopathy. MELD 3.0 = 11 on 06/24/24. He has voiced to me multiple times in the past that if liver transplant was ever indicated, he does not wish to pursue due to personal reasons. -EV: Small esophageal varices noted on recent EGD at 09/30/24. -ascites: None overt at this time. He [...] with the medication. Will follow-up ED findings. I will prescribed lactulose now. -HCC screening: US liver 06/2024 without hepatic lesion identified. Repeat 11/2024 and q6 months. 3) GAVE: Plan for repeat EGD once stable. Will follow-up ED findings. [email or web address] Not available 11/01/2024 20:50:08 12/16/2024 12/16/2024 63-year-old male with history of [...] take it due to diarrhea. -HCC screening: liver 06/2024 without hepatic lesion identified. CT [...] unremarkable findings. He reports recent MRI at [facility] [place] showed degenerative changes of the lower spine. Not available 12/16/2024 15:19:30 Plan of Treatment [...] Lab CMP, serum or plasma [email or web address] [facility], [address] , [place], [address], 01/07/2025 08:45:30 CBC w/ auto diff 2024 025 [facility], [address], [place], [address], 12/31/2024 15:15:43 type + screen, blood 2024 025 [email or web address] [facility], [address], [place], [address], 01/07/2025 08:45:30 hemoglobi n + hematocri t, blood 2024 025 SLOVAN [facility], [address], [address], [place], [address], 12/17/2024 07:13:45 chronic leukemia panel, flow cytometry , unspecifi ed specimen 2024 025 [email or web address] [facility], [address] [facility], [place], [address], 12/19/2024 12:14:49 ldh, serum or plasma [facility]24 [facility] [address] [place], [address], 12/12/2024 18:11:28 iron + TIBC + ferritin, serum 2024 025 [email or web address] [facility], [address] [place], [address], 12/19/2024 12:14:49 CMP, serum or plasma 2024 025 [facility], [address] [place], [address], 12/12/2024 18:11:26 CBC w/ auto diff 2024 025 [facility], [address] [place], [address], 12/12/2024 18:43:17 vitamin B12 + folate, serum or blood 2024 025 [email or web address] [facility], [address] [place], [address], 12/19/2024 12:14:49 iron saturatio n, serum 2024 025 [email or web address] [facility], [address] [place], [address], 12/19/2024 12:14:49 type + screen, serum 2024 025 [email or web address] [facility], [address] [place], [address], 12/19/2024 12:14:[address] referral 2024 025 [email or web address] Radha Arauz MD, [address], [place], [address], 12/16/2024 13:31:45 Procedures None recorded. Surgeries None recorded. Imaging RF, small bowel follow-th rough study 2024 025 [email or web address] [facility] Scheduling Department -New Scheduling Process, [address], [place], [address], 12/23/2024 08:41:07 Medication Orders lactulose 10 gram/15 mL oral solution 2024 025 JANA [place] [facility], [address], [place], [id number], 11/01/2024 20:46:32 Patient TargetsNo targets recorded. Patient Instructions Encounter Date Encounter Id Patient Instructions Last Modified By Organization Details Last Modified Time 11/01/2024 [id number] EGD at the [facility] on 09/30/2024 Findings: Small (< 5 mm) varices were found in the distal esophagus. There were esophageal mucosal changes suspicious for short-segment Ambriz's esophagus present in the distal esophagus. The maximum longitudinal extent of these mucosal changes was 2 cm in length. Will require biopsy at later date. 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 Eight bands were successfully placed. There was no bleeding at the end of the maneuver. A few small sessile polyps with no stigmata of recent bleeding were found in the gastric body. The examined duodenum was normal. The exam was otherwise without abnormality. [email or web address] Not available 11/01/2024 20:30:40 Reason for Referral Neurologist Referral for Abn ormal movement Referring Physician: Slade Lennon, Gastroenterology, Encounter Date: 12/16/2024 Results Created Date Observation Date Name Description Value Unit Range Abnormal Flag Note LastModifiedBy Organization Detail LastModifiedTime 12/13/19 25 12/12/2024 IRON STUDY (IRON /TIBC /%SAT ) iron 19 mcg/m L 40-180 low Not Available [facility] ([facility]) [address] [facility], [place], [address], 12/12/2024 17:59:30 12/13/19 25 12/12/2024 IRON STUDY (IRON /TIBC /%SAT ) TIBC 350 mcg/d L 250-45 0 Not Available [facility] ([facility]) [address], [place], [address], 12/12/2024 17:59:30 12/13/19 25 12/12/2024 IRON STUDY (IRON /TIBC /%SAT ) %sat 5 15-55 low Not Available [facility] ([facility]) [address], [place], [address], 12/12/2024 17:59:30 12/13/19 25 12/12/2024 COMP METAB OLIC PANEL sodium 145 mmol/ L 136-14 5 Not Available [facility] ([facility]) [address], [place], [address], 12/12/2024 18:11:26 12/13/19 25 12/12/2024 COMP METAB OLIC PANEL potassium 4.1 mmol/ L 3.6-5. 0 Not Available [facility] ([facility]) [address], [place], [address], 12/12/2024 18:11:26 12/13/19 25 12/12/2024 COMP METAB OLIC PANEL chloride 108 mmol/ L 98-107 high Not Available [facility] ([facility]) [address], [place], [address], 12/12/2024 18:11:26 12/13/19 25 12/12/2024 COMP METAB OLIC PANEL carbon dioxide 28.2 mmol/ L 21.0-3 2.0 Not Available [facility] ([facility]) [address] [place], [address], 12/12/2024 18:11:26 12/13/19 25 12/12/2024 COMP METAB OLIC PANEL anion gap 12.9 Not Available [facility] ([facility]) [address], [place], [address], 12/12/2024 18:11:26 12/13/19 25 12/12/2024 COMP METAB OLIC PANEL glucose 92 mg/dL 70-120 Not Available [facility] ([facility]) [address], [place], [address], 12/12/2024 18:11:26 12/13/19 25 12/12/2024 COMP METAB OLIC PANEL BUN 21 mg/dL 7-18 high Not Available [facility] ([facility]) [address], [place], [address], 12/12/2024 18:11:26 12/13/19 25 12/12/2024 COMP METAB OLIC PANEL creatinine 1.4 mg/dL 0.6-1. 3 high Not Available [facility] ([facility]) [address] , [place], [address], 12/12/2024 18:11:26 12/13/19 25 12/12/2024 COMP METAB OLIC PANEL glomerular filtration rate 57 mlper min 60- low GFR LIMIT ATION : The eGFR equat ion CKD-E PI 2020 is not appli cable for pedia tric patie nts or great er than 90 years of age. The follo wing condi tions may alter the GFR resul t: extre mes in body size, malnu triti on or obesi ty, skele sandeep muscl e disea se, parap legia or quadr ipleg ia, veget mike diet or rapid ly ge ing kiney funct ion. Not Available [facility] ([facility]) [address], [place], [address], 12/12/2024 18:11:26 12/13/19 25 12/12/2024 COMP METAB OLIC PANEL osmolality (calculated) 304 mOsm/ kg 275-30 1 high OSMOL ALITY IS A CALCU LATIO N UTILI ZING THE SERUM /PLAS MA SODIU M, GLUCO SE AND UREA NITRO GEN (BUN) LEVEL S. FOR THE MOST ACCUR ATE RESUL T A MEASU RED SERUM OSMOL ALITY IS DWIGHT BEARDENAlexander. Not Available [facility] ([facility]) [address] [facility], [place], [address], 12/12/2024 18:11:26 12/13/19 25 12/12/2024 COMP METAB OLIC PANEL total protein 6.4 g/dL 6.4-8. 2 Not Available [facility] ([facility]) [address] [facility], [place], [address], 12/12/2024 18:11:26 12/13/19 25 12/12/2024 COMP METAB OLIC PANEL albumin 2.6 g/dL 3.4-5. 0 low Not Available [facility] ([facility]) [address] [facility], [place], [address], 12/12/2024 18:11:26 12/13/19 25 12/12/2024 COMP METAB OLIC PANEL globulin 3.8 Not Available [facility] ([facility]) [address] [facility], [place], [address], 12/12/2024 18:11:26 12/13/19 25 12/12/2024 COMP METAB OLIC PANEL alb/glob ratio 0.7 0.7-2 Not Available [facility] ([facility]) [address] [facility], [place], [address], 12/12/2024 18:11:26 12/13/19 25 12/12/2024 COMP METAB OLIC PANEL calcium 8.3 mg/dL 8.5-10 .5 low Not Available [facility] ([facility]) [address] [facility], [place], [address], 12/12/2024 18:11:26 12/13/19 25 12/12/2024 COMP METAB OLIC PANEL bilirubin total 0.60 mg/dL 0.10-1 .00 Not Available [facility] ([facility]) [address], [place], [address], 12/12/2024 18:11:26 12/13/19 25 12/12/2024 COMP METAB OLIC PANEL AST (SGOT) 29 U/L 0-37 Not Available [facility] ([facility]) [address], [place], [address], 12/12/2024 18:11:26 12/13/19 25 12/12/2024 COMP METAB OLIC PANEL ALT (SGPT) 23 U/L 0-65 Not Available [facility] ([facility]) [address], [place], [address], 12/12/2024 18:11:26 12/13/19 25 12/12/2024 COMP METAB OLIC PANEL alk phosphatase 127 U/L 46-116 high Not Available [facility] ([facility]) [address], [place], [address], 12/12/2024 18:11:26 12/13/19 25 12/12/2024 JORGE TIN ferritin, serum 12 NG/mL 3-244 Not Available [facility] ([facility]) [address], [place], [address], 12/12/2024 18:11:27 12/13/19 25 12/12/2024 LDH (LD) LDH 205 U/L 0-190 high Not Available [facility] ([facility]) [address], [place], [address], 12/12/2024 18:11:28 12/13/19 25 12/12/2024 VITAM IN B12 vitamin B12 607 pg/mL 193-98 6 *Note : Refer ence Roselyn Molina. New Test Metho d in use. Not Available [facility] ([facility]) [address] [facility], [place], [address], 12/12/2024 18:29:30 12/13/19 25 12/12/2024 VITAM IN B12 folate (folic acid), serum 12.7 NG/mL 8.6-58 .9 *Note : Refer beto agarwal New Test Metho d in use. Not Available [facility] ([facility]) [address] , [place], [address], 12/12/2024 18:29:30 12/13/19 25 12/12/2024 CBC AUTO W DIFF WBC 2.0 K/uL 4.0-10 .5 low Not Available [facility] ([facility]) [address] , [place], [address], 12/12/2024 18:43:17 12/13/19 25 12/12/2024 CBC AUTO W DIFF RBC 3.4 M/mm3 4.7-6. 1 low Not Available [facility] ([facility]) [address] , [place], [address], 12/12/2024 18:43:17 12/13/19 25 12/12/2024 CBC AUTO W DIFF HGB 7.1 gm/dL 13.5-1 8.0 low Not Available [facility] ([facility]) [address] , [place], [address], 12/12/2024 18:43:17 12/13/19 25 12/12/2024 CBC AUTO W DIFF HCT 26.8 % 42.0-5 2.0 low Not Available [facility] ([facility]) [address] , [place], [address], 12/12/2024 18:43:17 12/13/19 25 12/12/2024 CBC AUTO W DIFF MCV 80.0 fL 78-100 Not Available [facility] ([facility]) [address] , [place], [address], 12/12/2024 18:43:17 12/13/19 25 12/12/2024 CBC AUTO W DIFF MCH 21.2 pg 27-31 low Not Available [facility] ([facility]) [address] [place], [address], 12/12/2024 18:43:17 12/13/19 25 12/12/2024 CBC AUTO W DIFF MCHC 26.5 g/dL 32-36 low Not Available [facility] ([facility]) [address], [place], [address], 12/12/2024 18:43:17 12/13/19 25 12/12/2024 CBC AUTO W DIFF RDW 16.2 % 11.5-1 4.0 high Not Available [facility] ([facility]) [address], [place], [address], 12/12/2024 18:43:17 12/13/19 25 12/12/2024 CBC AUTO W DIFF platelet count 74 K/uL 150-45 0 low Not Available [facility] ([facility]) [address] [facility], [place], [address], 12/12/2024 18:43:17 12/13/19 25 12/12/2024 CBC AUTO W DIFF MPV TNP fL 6-9.5 TEST NOT PERFO RMED Not Available [facility] ([facility]) [address] [place], [address], 12/12/2024 18:43:17 12/13/19 25 12/12/2024 CBC AUTO W DIFF neutrophil% 68.2 % 43-65 high Not Available [facility] ([facility]) [address] [place], [address], 12/12/2024 18:43:17 12/13/19 25 12/12/2024 CBC AUTO W DIFF lymphocyte% 18.5 % 20.5-4 5.5 low Not Available [facility] [address] [facility] [place], [address], 12/12/2024 18:43:17 12/13/19 25 12/12/2024 CBC AUTO W DIFF monocyte% 8.2 % 5.5-11 .7 Not Available [facility] ([facility]) [address], [place], [address], 12/12/2024 18:43:17 12/13/19 25 12/12/2024 CBC AUTO W DIFF eosinophil% 3.1 % 0.9-2. 9 high Not Available [facility] ([facility]) [address] [facility], [place], [address], 12/12/2024 18:43:17 12/13/19 25 12/12/2024 CBC AUTO W DIFF basophil% 1.5 % 0.2-1. 0 high Not Available [facility] ([facility]) [address] [facility], [place], [address], 12/12/2024 18:43:17 12/13/19 25 12/12/2024 CBC AUTO W DIFF immature granulocytes % 0.5 % 0.0-0. 8 Not Available [facility] ([facility]) [address] [facility], [place], [address], 12/12/2024 18:43:17 12/13/19 25 12/12/2024 CBC AUTO W DIFF nucleated red blood cells % 0.0 % Not Available [facility] ([facility]) [address] [place], [address], 12/12/2024 18:43:17 12/13/19 25 12/12/2024 CBC AUTO W DIFF neutrophil# 1.3 K/uL 2.2-4. 8 low Not Available [facility] ([facility]) [address] [place], [address], 12/12/2024 18:43:17 12/13/19 25 12/12/2024 CBC AUTO W DIFF lymphocyte# 0.4 cell/ mcL 1.3-2. 9 low Not Available [facility] ([facility]) [address], [place], [address], 12/12/2024 18:43:17 12/13/19 25 12/12/2024 CBC AUTO W DIFF monocyte# 0.2 cell/ mcL 0.3-0. 8 low Not Available [facility] ([facility]) [address] [facility], [place], [address], 12/12/2024 18:43:17 12/13/19 25 12/12/2024 CBC AUTO W DIFF eosinophil# 0.1 cell/ mcL 0-0.2 Not Available [facility] ([facility]) [address] [facility], [place], [address], 12/12/2024 18:43:17 12/13/19 25 12/12/2024 CBC AUTO W DIFF basophil# 0.0 cell/ mcL 0.0-1. 0 Not Available [facility] ([facility]) [address] [facility], [place], [address], 12/12/2024 18:43:17 12/13/19 25 12/12/2024 CBC AUTO W DIFF immature gramulocytes # 0.01 K/uL Not Available [facility] ([facility]) [address] [facility], [place], [address], 12/12/2024 18:43:17 12/13/19 25 12/12/2024 CBC AUTO W DIFF nucleated red blood cells # 0.00 K/uL Not Available [facility] ([facility]) [address] [facility], [place], [address], 12/12/2024 18:43:17 12/13/19 25 12/12/2024 CBC AUTO W DIFF manual differential YES Not Available [facility] ([facility]) [address], [place], [address], 12/12/2024 18:43:17 12/13/19 25 12/12/2024 CBC AUTO W DIFF segmented neutrophil 75 % 42-76 Not Available [facility] ([facility]) [address], [place], [address], 12/12/2024 18:43:17 12/13/19 25 12/12/2024 CBC AUTO W DIFF lymphocyte 15 % 15-41 Not Available [facility] ([facility]) [address], [place], [address], 12/12/2024 18:43:17 12/13/19 25 12/12/2024 CBC AUTO W DIFF monocyte 7 % 2-9 Not Available [facility] ([facility]) [address] [facility], [place], [address], 12/12/2024 18:43:17 12/13/19 25 12/12/2024 CBC AUTO W DIFF eosinophil 3 % 0-3 Not Available [facility] ([facility]) [address] [facility], [place], [address], 12/12/2024 18:43:17 12/13/19 25 12/12/2024 CBC AUTO W DIFF nucleated RBC's 1 % 0-1 Not Available [facility] ([facility]) [address] [facility], [place], [address], 12/12/2024 18:43:17 12/13/19 25 12/12/2024 CBC AUTO W DIFF platelet estimate DECREA SED adequa te delta Not Available [facility] ([facility]) [address] [facility], [place], [address], 12/12/2024 18:43:17 12/13/19 25 12/12/2024 CBC AUTO W DIFF platelet morphology NORMAL normal Not Available [facility] ([facility]) [address], [place], [address], 12/12/2024 18:43:17 12/13/19 25 12/12/2024 CBC AUTO W DIFF RBC morphology ABNORM AL normal delta Not Available [facility] ([facility]) [address] [facility], [place], [address], 12/12/2024 18:43:17 12/13/19 25 12/12/2024 CBC AUTO W DIFF anisocytosis 2+ none seen Not Available [facility] ([facility]) [address] [facility], [place], [address], 12/12/2024 18:43:17 12/13/19 25 12/12/2024 CBC AUTO W DIFF hypochromia 2+ none seen Not Available [facility] ([facility]) [address] [facility], [place], [address], 12/12/2024 18:43:17 12/13/19 25 12/16/2024 CHRON IC LEUKE MAXIMUS/L YMPHO MA specimen type Traci Francois heral blood Not Available [facility] ([facility]) [address], [place], [address], 12/16/2024 17:11:04 12/13/19 25 12/16/2024 CHRON IC LEUKE MAXIMUS/L YMPHO MA clinical information Traci hogue CBC dated 2024 shows pancy topen ia. WBC count 2.9, RBC 4.12, HGB 9.0, PLT 93K, Aly 2.2, Lym 0.4, Mon 0.2. Not Available [facility] ([facility]) [address], [place], [address], 12/16/2024 17:11:04 12/13/19 25 12/16/2024 CHRON IC LEUKE MAXIMUS/L YMPHO MA comment: Commen t . Each antib kobi in this assay was utili zed to asses s for poten tial abnor malit ies of studi ed cell popul ation s or to alfredo cteri ze ident ified abnor malit ies. . This test was devel oped and its perfo rmanc e alfredo cteri stics deter mined by [facility]. It has not been clear ed or appro shantelle by the U.S. Food and Drug Admin istra tion. . The FDA has deter mined that such clear ance or appro farheen is not neces duyen. This test is used for clini gil purpo ses. It shoul d not be regar ded as inves tigat ional or for resea rch. Perfo rmed at: -Y - [facility] [place] [address] [place] , [place] [address] Lab Direc tor: Jimenez Beaulieu [facility] , Phone : [phone] Perfo rmed at: TG - [facility] [place] [address] , [place] [address] Lab Direc tor: Jimenez Beaulieu [facility] , Phone : [phone] Not Available [facility] ([facility]) [address] [facility], [place], [address], 12/16/2024 17:11:04 12/13/19 25 12/16/2024 CHRON IC LEUKE MAXIMUS/L YMPHO MA flow comment Commen t . Previ ous pheno typin g resul t is revie wed. Not Available [facility] ([facility]) [address] [facility], [place], [address], 12/16/2024 17:11:04 12/13/19 25 12/16/2024 CHRON IC LEUKE MAXIMUS/L YMPHO MA flow interpretati on Commen t . No signi fican t immun ophen otypi c abnor malit y detec kilo Not Available [facility] ([facility]) [address] [facility], [place], [address], 12/16/2024 17:11:04 12/13/19 25 12/16/2024 CHRON IC LEUKE MAXIMUS/L YMPHO MA leukocyte assessment Commen t . No monoc lonal B cell popul ation is detec kilo. kappa :vu da ratio 1.9 There is no loss of, or aberr ant expre ssion of, the matta T ce ll antig ens to sugge st a neopl astic T cell proce ss. CD4:C D8 ratio 6.4 No circu latin g blast s are detec kilo. There is no immun ophen otypi c evide nce of abnor mal myelo id m atura tion. Shilo sis of the leuko cyte popul ation shows : granu locyt es 76% , monoc ytes 7%, lymph ocyte s 17%, blast s <0.1% , B cells 2%, T cells 11%, NK c ells 4%. Not Available [facility] ([facility]) [address] [facility], [place], [address], 12/16/2024 17:11:04 12/13/19 25 12/16/2024 CHRON IC LEUKE MAXIMUS/L YMPHO MA resulting path name Commen t . Nessa allen M.D. Not Available [facility] ([facility]) [address] [facility], [place], [address], 12/16/2024 17:11:04 12/13/19 25 12/16/2024 CHRON IC LEUKE MAXIMUS/L YMPHO MA phenotype chart Commen t . CD2 Mel l CD3 Mel l CD4 Mel l CD5 Mel l CD7 Mel l CD8 Mel l CD10 Mel l CD11b Mel l CD13 Mel l CD14 Mel l CD16 Mel l CD19 Mel l CD20 Mel l CD33 Mel l CD34 Mel l CD38 Mel l CD45 Mel l CD56 Mel l CD57 Mel l CD117 Mel l HLA-D R Mel l KAPPA Mel l LAMBD A Mel l CD64 Mel l Not Available [facility] ([facility]) [address] [facility], [place], [address], 12/16/2024 17:11:04 12/13/19 25 12/16/2024 CHRON IC LEUKE MAXIMUS/L YMPHO MA analysis and gating strategy Commen t . 8 color shilo sis with CD45/ SSC ezequiel flores Techn ical- Shilo sis perfo rmed at [facility] [employer], [address] , [place] [address] , Direc tor: Jimenez Beaulieu , [facility] Not Available [facility] ([facility]) [address] [facility], [place], [address], 12/16/2024 17:11:04 12/13/19 25 12/16/2024 CHRON IC LEUKE MAXIMUS/L YMPHO MA viability Commen t . 92% Not Available [facility] ([facility]) [address] [facility], [place], [address], 12/16/2024 17:11:04 12/14/19 25 12/13/2024 HGB/H CT POSTT RANSF USION HGB 8.7 gm/dL 13.5-1 8.0 low Not Available [facility] ([facility]) [address] [facility], [place], [address], 12/13/2024 16:59:28 12/14/19 25 12/13/2024 HGB/H CT POSTT RANSF USION HCT 31.3 % 42.0-5 2.0 low Not Available [facility] ([facility]) [address] [facility], [place], [address], 12/13/2024 16:59:28 12/17/19 25 12/17/2024 HGB+H CT hemoglobin 8.4 g/dL 13.0-1 7.7 below low normal Not Available [facility] ([facility]) [address], [place], [address], 12/17/2024 07:13:45 12/17/19 25 12/17/2024 HGB+H CT hematocrit 30.2 % 37.5-5 1.0 below low normal Not Available [facility] ([facility]) [address], [place], [address], 12/17/2024 07:13:45 01/01/20 25 12/31/2024 COMP METAB OLIC PANEL sodium 144 mmol/ L 136-14 5 Not Available [facility] ([facility]) [address], [place], [address], 12/31/2024 14:26:32 01/01/20 25 12/31/2024 COMP METAB OLIC PANEL potassium 4.4 mmol/ L 3.6-5. 0 Not Available [facility] ([facility]) [address], [place], [address], 12/31/2024 14:26:32 01/01/20 25 12/31/2024 COMP METAB OLIC PANEL chloride 107 mmol/ L 98-107 Not Available [facility] ([facility]) [address], [place], [address], 12/31/2024 14:26:32 01/01/20 25 12/31/2024 COMP METAB OLIC PANEL carbon dioxide 29.0 mmol/ L 21.0-3 2.0 Not Available [facility] ([facility]) [address] [facility], [place], [address], 12/31/2024 14:26:32 01/01/20 25 12/31/2024 COMP METAB OLIC PANEL anion gap 12.4 Not Available [facility] ([facility]) [address], [place], [address], 12/31/2024 14:26:32 01/01/20 25 12/31/2024 COMP METAB OLIC PANEL glucose 89 mg/dL 70-120 Not Available [facility] ([facility]) [address] [place], [address], 12/31/2024 14:26:32 01/01/20 25 12/31/2024 COMP METAB OLIC PANEL BUN 22 mg/dL 7-18 high Not Available [facility] ([facility]) [address], [place], [address], 12/31/2024 14:26:32 01/01/20 25 12/31/2024 COMP METAB OLIC PANEL creatinine 1.4 mg/dL 0.6-1. 3 high Not Available [facility] ([facility]) [address], [place], [address], 12/31/2024 14:26:32 01/01/20 25 12/31/2024 COMP METAB OLIC PANEL glomerular filtration rate 56 mlper min 60- low GFR LIMIT ATION : The eGFR equat ion CKD-E PI 2020 is not appli cable for pedia tric patie nts or great er than 90 years of age. The follo wing condi tions may alter the GFR resul t: extre mes in body size, malnu triti on or obesi ty, skele sandeep muscl e disea se, parap legia or quadr ipleg ia, veget mike diet or rapid ly ge ing kiney funct ion. Not Available [facility] ([facility]) [address], [place], [address], 12/31/2024 14:26:32 01/01/20 25 12/31/2024 COMP METAB OLIC PANEL osmolality (calculated) 302 mOsm/ kg 275-30 1 high OSMOL ALITY IS A CALCU LATIO N UTILI ZING THE SERUM /PLAS MA SODIU M, GLUCO SE AND UREA NITRO GEN (BUN) LEVEL S. FOR THE MOST ACCUR ATE RESUL T A MEASU RED SERUM OSMOL ALITY IS SUGGE AKSHATD. Not Available [facility] ([facility]) [address], [place], [address], 12/31/2024 14:26:32 01/01/20 25 12/31/2024 COMP METAB OLIC PANEL total protein 6.5 g/dL 6.4-8. 2 Not Available [facility] ([facility]) [address], [place], [address], 12/31/2024 14:26:32 01/01/20 25 12/31/2024 COMP METAB OLIC PANEL albumin 2.7 g/dL 3.4-5. 0 low Not Available [facility] ([facility]) [address], [place], [address], 12/31/2024 14:26:32 01/01/20 25 12/31/2024 COMP METAB OLIC PANEL globulin 3.8 Not Available [facility] ([facility]) [address], [place], [address], 12/31/2024 14:26:32 01/01/20 25 12/31/2024 COMP METAB OLIC PANEL alb/glob ratio 0.7 0.7-2 Not Available [facility] ([facility]) [address], [place], [address], 12/31/2024 14:26:32 01/01/20 25 12/31/2024 COMP METAB OLIC PANEL calcium 8.6 mg/dL 8.5-10 .5 Not Available [facility] ([facility]) [address], [place], [address], 12/31/2024 14:26:32 01/01/20 25 12/31/2024 COMP METAB OLIC PANEL bilirubin total 0.80 mg/dL 0.10-1 .00 Not Available [facility] ([facility]) [address] , [place], [address], 12/31/2024 14:26:32 01/01/20 25 12/31/2024 COMP METAB OLIC PANEL AST (SGOT) 29 U/L 0-37 Not Available [facility] ([facility]) [address] , [place], [address], 12/31/2024 14:26:32 01/01/20 25 12/31/2024 COMP METAB OLIC PANEL ALT (SGPT) 25 U/L 0-65 Not Available [facility] ([facility]) [address], [place], [address], 12/31/2024 14:26:32 01/01/20 25 12/31/2024 COMP METAB OLIC PANEL alk phosphatase 127 U/L 46-116 high Not Available [facility] ([facility]) [address], [place], [address], 12/31/2024 14:26:32 01/01/20 25 12/31/2024 CBC AUTO W DIFF WBC 1.7 K/uL 4.0-10 .5 critical low Not Available [facility] ([facility]) [address] , [place], [address], 12/31/2024 15:15:43 01/01/20 25 12/31/2024 CBC AUTO W DIFF RBC 3.5 M/mm3 4.7-6. 1 low Not Available [facility] ([facility]) [address] , [place], [address], 12/31/2024 15:15:43 01/01/20 25 12/31/2024 CBC AUTO W DIFF HGB 7.8 gm/dL 13.5-1 8.0 low Not Available [facility] ([facility]) [address] , [place], [address], 12/31/2024 15:15:43 01/01/20 25 12/31/2024 CBC AUTO W DIFF HCT 28.0 % 42.0-5 2.0 low Not Available [facility] ([facility]) [address], [place], [address], 12/31/2024 15:15:43 01/01/20 25 12/31/2024 CBC AUTO W DIFF MCV 80.0 fL 78-100 Not Available [facility] ([facility]) [address], [place], [address], 12/31/2024 15:15:43 01/01/20 25 12/31/2024 CBC AUTO W DIFF MCH 22.3 pg 27-31 low Not Available [facility] ([facility]) [address], [place], [address], 12/31/2024 15:15:43 01/01/20 25 12/31/2024 CBC AUTO W DIFF MCHC 27.9 g/dL 32-36 low Not Available [facility] ([facility]) [address], [place], [address], 12/31/2024 15:15:43 01/01/20 25 12/31/2024 CBC AUTO W DIFF RDW 18.3 % 11.5-1 4.0 high Not Available [facility] ([facility]) [address] , [place], [address], 12/31/2024 15:15:43 01/01/20 25 12/31/2024 CBC AUTO W DIFF platelet count 75 K/uL 150-45 0 low Not Available [facility] ([facility]) [address] , [place], [address], 12/31/2024 15:15:43 01/01/20 25 12/31/2024 CBC AUTO W DIFF MPV 11.8 fL 6-9.5 high Not Available [facility] ([facility]) [address] , [place], [address], 12/31/2024 15:15:43 01/01/20 25 12/31/2024 CBC AUTO W DIFF neutrophil% 76.4 % 43-65 high Not Available [facility] ([facility]) [address] , [place], [address], 12/31/2024 15:15:43 01/01/20 25 12/31/2024 CBC AUTO W DIFF lymphocyte% 15.5 % 20.5-4 5.5 low Not Available [facility] ([facility]) [address] [place], [address], 12/31/2024 15:15:43 01/01/20 25 12/31/2024 CBC AUTO W DIFF monocyte% 5.2 % 5.5-11 .7 low Not Available [facility] ([facility]) [address] [place], [address], 12/31/2024 15:15:43 01/01/20 25 12/31/2024 CBC AUTO W DIFF eosinophil% 1.7 % 0.9-2. 9 Not Available [facility] ([facility]) [address] [place], [address], 12/31/2024 15:15:43 01/01/20 25 12/31/2024 CBC AUTO W DIFF basophil% 0.6 % 0.2-1. 0 Not Available [facility] ([facility]) [address] [place], [address], 12/31/2024 15:15:43 01/01/20 25 12/31/2024 CBC AUTO W DIFF immature granulocytes % 0.6 % 0.0-0. 8 Not Available [facility] ([facility]) [address] [place], [address], 12/31/2024 15:15:43 01/01/20 25 12/31/2024 CBC AUTO W DIFF nucleated red blood cells % 0.0 % Not Available [facility] ([facility]) [address] [place], [address], 12/31/2024 15:15:43 01/01/20 25 12/31/2024 CBC AUTO W DIFF neutrophil# 1.3 K/uL 2.2-4. 8 low Not Available [facility] ([facility]) [address] [place], [address], 12/31/2024 15:15:43 01/01/20 25 12/31/2024 CBC AUTO W DIFF lymphocyte# 0.3 cell/ mcL 1.3-2. 9 low Not Available [facility] ([facility]) [address] [facility], [place], [address], 12/31/2024 15:15:43 01/01/20 25 12/31/2024 CBC AUTO W DIFF monocyte# 0.1 cell/ mcL 0.3-0. 8 low Not Available [facility] ([facility]) [address] [facility], [place], [address], 12/31/2024 15:15:43 01/01/20 25 12/31/2024 CBC AUTO W DIFF eosinophil# 0.0 cell/ mcL 0-0.2 Not Available [facility] ([facility]) [address] [facility], [place], [address], 12/31/2024 15:15:43 01/01/20 25 12/31/2024 CBC AUTO W DIFF basophil# 0.0 cell/ mcL 0.0-1. 0 Not Available [facility] ([facility]) [address] [facility], [place], [address], 12/31/2024 15:15:43 01/01/20 25 12/31/2024 CBC AUTO W DIFF immature gramulocytes # 0.01 K/uL Not Available [facility] ([facility]) [address] [place], [address], 12/31/2024 15:15:43 01/01/20 25 12/31/2024 CBC AUTO W DIFF nucleated red blood cells # 0.00 K/uL Not Available [facility] ([facility]) [address] [place], [address], 12/31/2024 15:15:43 01/01/20 25 12/31/2024 CBC AUTO W DIFF manual differential NO Not Available [facility] ([facility]) [address], [place], [address], 12/31/2024 15:15:43 01/01/20 25 12/31/2024 CBC AUTO W DIFF platelet estimate DECREA SED adequa te delta Not Available [facility] ([facility]) [address], [place], [address], 12/31/2024 15:15:43 01/01/20 25 12/31/2024 CBC AUTO W DIFF platelet morphology NORMAL normal Not Available [facility] ([facility]) [address], [place], [address], 12/31/2024 15:15:43 01/01/20 25 12/31/2024 CBC AUTO W DIFF RBC morphology ABNORM AL normal delta Not Available [facility] ([facility]) [address], [place], [address], 12/31/2024 15:15:43 01/01/20 25 12/31/2024 CBC AUTO W DIFF anisocytosis 2+ none seen Not Available [facility] ([facility]) [address] [place], [address], 12/31/2024 15:15:43 01/01/20 25 12/31/2024 CBC AUTO W DIFF microcytosis 1+ none seen Not Available [facility] ([facility]) [address] [place], [address], 12/31/2024 15:15:43 01/01/20 25 12/31/2024 CBC AUTO W DIFF macrocytosis SLIGHT none seen Not Available [facility] ([facility]) [address] [place], [address], 12/31/2024 15:15:43 01/01/20 25 12/31/2024 CBC AUTO W DIFF hypochromia 3+ none seen Not Available [facility] ([facility]) [address], [place], [address], 12/31/2024 15:15:43 01/01/20 25 12/31/2024 CBC AUTO W DIFF rouleaux SLIGHT none seen Not Available [facility] ([facility]) [address], [place], [address], 12/31/2024 15:15:43 01/01/20 25 12/31/2024 CBC AUTO W DIFF stomatocytes SLIGHT none seen Not Available [facility] ([facility]) [address], [place], [address], 12/31/2024 15:15:43 12/13/19 25 12/06/2024 MRI proce dure (PROC ) No observ ation record ed. [email or web address] [facility] (Med Record) [address], [place], [address], 2024 10:13:14 12/17/19 25 12/06/2024 MRI, cervi gil spine , w/wo contr ast No observ ation record ed. [email or web address] Not Available 2024 11:26:57 12/21/19 25 12/20/2024 RF, small bowel follo w-thr ou study No observ ation record ed. [facility] [address], [place], [address], 2024 10:13:47 01/10/20 25 01/09/2025 CT biops y bone marro w [facility] [address] [place] [address] Phone: Fax: Name: BARTOLO HENDRICKSON Exam Date: 025 : 962 Age 64 years Gender : M Access ion: [id number] Physic linda: BRAN MUÑOZ Facili ty: [facility] Facili ty HSV: Outpat ient Exam: CT BIOPSY BONE MARROW PROCED URE: CT-CUBA DED BONE MARROW BIOPSY PHYSIC LINDA ADMINI STERED CONSCI OUS SEDATI ON ATTEND ING Physic linda: Dr. Ten mendes MD PRIMAR Y OPERAT OR: Marcio luong, FOOD CHEMIST-C. Direct Superv ision: Willie nolasco PA-C. CLINIC [...] ucer needle was advanc ed into the boat oar maker ior right iliac bone. Next, the inner [...] actory biopsy needle positi oning within the boat oar maker ior right ilium bone. IMPRES YUNG: Uncomp [...] Thank you for referr BARTOLO Viramontes to [facility]. Legall y authen ticate d by SAMRA OMALLEY 01-09 09:44: 21 CC'ed Logic: Orderi ng Provid er: WILLY SOTOMAYOR Attend ing Provid er: WILLY SOTOMAYOR Referr ing Provid er: WILLY SOTOMAYOR Admitt ing Provid er: WILLY [facility]OTOMAYOR [email or web address] [address] , [place], [address], 01/09/2025 14:07:33 Result Notes None recorded. Problems Name Problem SNOMED Code Status Onset Date Resolution Date Notes Provider Name and Address Organization Details Recorded Time Weakness present 119836632 Active Deirdre Workman null, [place] [place] 4 14:32:40 Anemia 827532847 Active Deirdre Workman [place] 4 14:32:40 High troponin I level 391724433 Active Deirdre Workman [place] 4 14:32:40 Dyspnea on exertion 91903578 Active Deirdre Workman null, [place] [facility] [place] [facility] & [place] 4 14:32:40 Gastrointe stinal hemorrhage 57144634 Active Deirdre Workbob null, [place] & [place] 4 14:32:40 Atheroscle rosis of coronary artery without angina pectoris 3475745433440 03 Active 2023 Maxi Goodwin MD [address], [place], [address] , [place] [facility] - [facility] & [place] 4 13:56:37 Essential hypertensi on 52956167 Active 2023 Maxi Goodwin MD [address] , [place], [address] , [place] [facility] - [place] & [place] 4 13:56:52 Heart murmur 03689755 Active 2023 Maxi Goodwin MD [address], [place], [address] , [place] [facility] - [facility] & [place] 4 14:53:45 Anemia due to blood loss 423827120 Active 2024 Slade Lennon PA-C [address], [place], [address] , [place] [facility] - [facility] & [place] 5 20:36:19 Abnormal movement 646178194 Active 2024 Slade Lennon PA-C [address], [place], [address] , [place] [facility] [place] & [place] 5 13:24:16 Anxiety 70140878 Active 2021 Tarun Hopkins null, [place] [facility] 2 13:21:47 Chronic pain 93007670 Active 2021 Tarun Hopkins null, [place] & [place] 2 13:21:53 Hypertensi ve disorder 60235445 Active 2021 Tarun Hopkins [place] 2 13:22:00 Diabetes mellitus 49994447 Active 2021 Tarun Hopkins null, [place] & [place] 2 13:22:16 Cirrhosis of liver 28867399 Active 2023 Slade Lennon PA-C [address], [place], [address] , [place] [facility] [place] & [place] 4 10:34:13 Iron deficiency anemia 55357456 Active 2023 Slade Lennon PA-C [address], [place], [address] , [place] [facility] [place] & [place] 4 10:34:22 Vascular ectasia of gastric antrum 20050844 Active 2023 Slade Lennon PA-C [address], [place], [address] , [place] [facility] [place] & [place] 4 10:34:26 Upper gastrointe stinal bleeding 66811631 Active 2023 Slade Lennon PA-C [address], [place], [address] , [place] [facility] [place] & [place] 4 10:34:38 Bilateral lower limb edema 257827394 Active 2023 Slade Lennon PA-C [address], [place], [address] , [place] [facility] - [place] & [place] 12:54:25 Hepatic encephalop athy 86280926 Active 2023 Slade Lennon PA-C [address], [place], [address] , [facility] - [facility] & [place] 13:42:22 Problem Notes None recorded. Procedures Surgical History Date Name Laterality Status Provider Name and Address Organization Details Recorded Time 12/17/19 Venipuncture Gastro completed Janell Ruff [place] - [place] [facility] & [place] 12/16/2024 13:55:02 [facility] [place] 10/07/2022 09:58:34 Knee arthroscopy/surgery completed [facility] & [place] 10/07/2022 09:58:40 Imaging Results Imaging Date Name Status LastModified by Organiz ation Details LastModified Time 12/06/2024 MRI procedure (PROC) completed [address] (Med Record) [address], [place], [address], 2024 10:13:14 12/06/2024 MRI, cervical spine, w/wo contrast [email or web address] Information not available 12/16/2024 11:26:57 12/20/2024 RF, small bowel follow-through study completed [address], [place], [address], 2024 10:13:47 01/09/2025 CT biopsy bone marrow completed [address] - Physical Therapy [address], [place], [address], 01/09/2025 14:07:33 Procedure Notes None recorded. Medical Equipment None Reported. Allergies Allergen ID Allergen Name Allergen Category Reaction Reaction Severity Criticality Documentation Date Start Date Code Code System Note Provider Name and Address Organization Details Recorded Time 198234 celecoxib medicatio n Not available Not available Not available 08/21/2024 22101 7 RxNorm Other react ions and sever ities : 'Adve rse react ion to subst ance' . [place] Luna - [facility] & [place] 4 14:32:25 43016 Celebrex medicatio n Not available Not available Not available 06/28/2022 35418 7 RxNorm [place] Col[place] - [facility] & [place] 2 10:41:02 Medications Name Sig Start Date [...] height Body mass index (BMI) Body weight Heart rate Systolic blood pressure Diastolic blood pressure Provider Name and Address Organization Details Last Updated DateTime 5 177.8 cm 43.6 kg/m2 846671 g 90 /min 179 mm[Hg] 98 mm[Hg] Jaylan rolon [place] - [facility] & [place] 5 11:24:46 Date Recorded Body height Body mass index (BMI) Body weight Body temperature Oxygen saturation Oxygen saturation in Arterial blood by Pulse oximetry Heart rate Systolic blood pressure Diastolic blood pressure Provider Name and Address Organization Details Last Updated DateTime 5 177.8 cm 44.3 kg/m2 641684. 61 g 97.5 [degF] 97 % 97 % 62 /min 129 mm[Hg] 63 mm[Hg] Deirdre [place]stead [place] - [facility] & [place] 5 13:11:45 Date Recorded Body height Body mass index (BMI) Body weight Body temperature Oxygen saturation Oxygen saturation in Arterial blood by Pulse oximetry Heart rate Heart rate Systolic blood pressure Diastolic blood pressure Provider Name and Address Organization Details Last Updated DateTime 5 177.8 cm 44.3 kg/m2 660184. 25 g 97.6 [degF] 97 % 97 % 60 /min 63 /min 108 mm[Hg] 91 mm[Hg] Janell WOOD [facility] & [place] 5 13:05:54 Date Recorded Body height Body temperature Oxygen saturation Oxygen saturation in Arterial blood by Pulse oximetry Heart rate Respiratory rate Systolic blood pressure Diastolic blood pressure Provider Name and Address Organization Details Last Updated DateTime 5 177.8 cm 98 [degF] 95 % 95 % 68 /min 24 /min 105 mm[Hg] 48 mm[Hg] Deirdre WOOD [facility] & [place] 5 13:45:00 Social History Question Answer Notes LastModified by Organizat ion Details LastModified Time Tobacco Smoking Status Never Smoker MANOLO Luna [facility] & [place] 10/07/2022 09:58:16 What Is Your Level Of Alcohol Consumption? None Information not available 10/07/2022 What Is Your Level Of Caffeine Consumption? Moderate [email or web address] Information not available 09/12/2024 Do You Use Any Illicit Or Recreational Drugs? No [email or web address] Information not available 10/07/2022 Sex: Unknown Functional Status None recorded. Mental Status None recorded. Family History Relationship Description Onset Age of this Age Resolved Age Notes LastModified by Organization Details LastModified Time Father Father stomac h cancer [email or web address] Not available 10/07/2022 09:57:37 Mother Mother COPD [email or web address] Not available 10/07 09:58:04 Medical History No medical history recorded. Immunizations Vaccine Type Date Status Note Provider Nam e and Address Organization Details Recorded Time Influenza, split virus, quadrivalent, preservative 9 completed MANOLO Luna [facility] & [place] 02/03/2023 09:34:06 COVID-19 vaccine, vector-nr, rS-Ad26, PF, 0.5 mL 1 completed [place] Luna [facility] & [place] 02/03/2023 09:34:06 COVID-19 vaccine, vector-nr, rS-Ad26, PF, 0.5 mL 1 completed Deirdre Workman null[place] [facility] & [place] 02/03/2023 09:34:06 COVID-19, mRNA, LNP-S, bivalent, PF, 30 mcg/0.3 mL dose 2 completed Deirdre Work[place] 02/03/2023 09:34:06 Tdap 5 completed Deirdre Work[place] 02/03/2023 09:34:06 Influenza, split virus, trivalent, PF 7 completed Deirdre [place] 02/03/2023 09:34:06 Influenza, split virus, trivalent, PF 3 completed Deirdre [place] 02/03/2023 09:34:06 Hep B, adult 6 completed Deirdre [place] 02/03/2023 09:34:06 Hep B, adult 5 completed Deirdre Work[place] 02/03/2023 09:34:06 Hep B, adult 5 completed Deirdre Work[place] 02/03/2023 09:34:06 Influenza, split virus, quadrivalent, PF 0 completed Deirdre [place] 02/03/2023 09:34:06 Influenza, split virus, quadrivalent, PF 1 completed Deirdre [place] 02/03/2023 09:34:06 Influenza, split virus, quadrivalent, PF 5 completed Deirdre [place] 02/03/2023 09:34:06 Influenza, split virus, quadrivalent, PF 7 completed Deird[place] 02/03/2023 09:34:06 Influenza, split virus, quadrivalent, PF 2 completed Deirdre castrejon, [place] [facility] - [place] & [place] 02/03/2023 09:34:06 Influenza, split virus, quadrivalent, PF 6 completed Deirdre castrejon, [place] - [facility] - [place] & [place] 02/03/2023 09:34:06 Influenza, split virus, trivalent, PF 4 completed Deirdre castrejon, [place] - [facility] - [place] & [place] 12/12/2024 13:08:09 Past Encounters Encounter ID Performer Location Encounter Start Date Encounter Closed Date Diagnosis/Indication Diagnosis SNOMED-CT Code Diagnosis ICD10 Code Diagnosis Note [id number] Bran Gregg PA-C [facility] [address] [facility] [address] [place] [address] 06/28/2022 10:17:40 06/28/2022 11:14:24 Leukopenia 33639720 D72.819 Patient labs performed per his primary [...] Hemoglobin 14.2 and hematocrit 42. Platelet count 92095 Discussed leukopenia likely secondary to cirrhosis. Will order additional labs for further evaluation . Will follow up with further recommenda tions. Anemia 635741015 D64.9 Patient labs performed per his primary [...] 71. Vitamin B12 normal at 982. Patient is taking oral iron and oral vitamin B12. Will order additional labs for further evaluation . Will follow up with further recommenda tions. Patient is taking oral iron and oral vitamin B12. Thrombocyt openic disorder 669795289 D69.6 Patient labs performed per his primary [...] Hemoglobin 14.2 and hematocrit 42. Platelet count 46100 Discussed thrombocyt openia likely secondary to cirrhosis. Will order additional labs for further evaluation of thrombocyt openia. Will follow up with further recommenda tions. [id number] Bran Gregg PA-C [facility] [address] [place] [address] 10/07/2022 09:29:52 10/07/2022 10:17:52 Leukopenia 37958902 D72.819 Patient labs performed per his primary [...] Hemoglobin 14.2 and hematocrit 42. Platelet count 30002 Labs on June 28, 2022 with WBC [...] blood loss due to iron def. anemia Discussed pancytopen ia likely secondary to cirrhosis. Will order labs today. Will follow up with further recommenda tions. Anemia 044271511 D64.9 Patient labs performed per his primary [...] 71. Vitamin B12 normal at 982. Patient is taking oral iron and oral vitamin B12. Will order additional labs for further evaluation . Will follow up with further recommenda tions. Patient is taking oral iron and oral vitamin B12. Thrombocyt openic disorder 733047799 D69.6 Patient labs performed per his primary [...] Hemoglobin 14.2 and hematocrit 42. Platelet count 24790 Discussed thrombocyt openia likely secondary to cirrhosis. Will order additional labs for further evaluation of thrombocyt openia. Will follow up with further recommenda tions. [id number] Sarthak Vincent MD [facility] [address] [place] [address] 02/03/2023 09:26:31 02/03/2023 10:11:09 Leukopenia [id number] D72.819 Patient labs performed per his primary [...] Hemoglobin 14.2 and hematocrit 42. Platelet count 19423 Labs on June 28, 2022 with WBC [...] 3.8. Hemoglobin 11.1. Hematocrit 34.3. Platelet count 04364. MCV 91.5. GFR greater than 60. Albumin 3.2. Total protein 7.1. Normal liver function testing. Patient returns on February 03, 2023. Discussed repeat labs today. Offered ultrasound of the abdomen to look at liver and spleen. Patient did not want proceed. Patient has stopped following up with nephrologi st as well. Encourage patient to resume care with other specialist s. Anemia [id number] D64.9 Patient labs performed per his primary [...] 71. Vitamin B12 normal at 982. Patient is taking oral iron and oral vitamin B12. Will order additional labs for further evaluation . Will follow up with further recommenda tions. Patient is taking oral iron and oral vitamin B12. Thrombocyt openic disorder [id number] D69.6 Patient labs performed per his primary [...] Hemoglobin 14.2 and hematocrit 42. Platelet count 37002 Discussed thrombocyt openia likely secondary to cirrhosis. Will order additional labs for further evaluation of thrombocyt openia. Will follow up with further recommenda timercy. [id number] Slade Lennon PA-C [facility] [address] [facility] [address] [place] [address] 01/23/2024 09:46:05 01/23/2024 10:50:50 Cirrhosis of liver K74.60 Iron defic iency anemia 25122012 D50.9 Vascular e ctasia of gastric antrum 05161768 K31.819 Upper gastrointestinal bleeding 12099220 K92.89 Bilateral lower limb edema 457395949 R60.0 [id number] Slade Lennon PA-C [facility] [address] [facility] [address] [place] [address] 02/22/2024 13:01:11 02/22/2024 13:41:58 Cirrhosis of liver K74.60 Iron defic iency anemia 01569892 D50.9 Vascular e ctasia of gastric antrum 59913382 K31.819 Upper gastrointestinal bleeding 40226640 K92.89 Bilateral lower limb edema 522414509 R60.0 [id number] Bran rGegg PA-C [facility] [address] [facility] [address] [place] [address] 05/07/2024 14:15:42 05/07/2024 14:51:08 Leukopenia 93766273 D72.819 Patient labs performed per his primary [...] Hemoglobin 14.2 and hematocrit 42. Platelet count 40777 Labs on June 28, 2022 with WBC [...] 3.8. Hemoglobin 11.1. Hematocrit 34.3. Platelet count 66523. MCV 91.5. GFR greater than 60. Albumin 3.2. Total protein 7.1. Normal liver function testing. Patient returns on February 03, 2023. Discussed repeat labs today. Patient returns on May 07, 2024. Patient missed his last follow-up appointmen t and has not been here since January 2023. Patient had labs per his primary care provider on April 29, 2024 with white blood cell count 2.3. Hemoglobin 11.1. Platelet count 79351. Serum iron low at 24 and iron saturation 6%. Ferritin 37. Patient is taking ferrous sulfate 325 mg 1 tab p.o. t.i.d.. Discussed infusional iron since persistent iron deficiency despite oral iron. Patient denies any bleeding or signs of infection. Patient instructed to follow-up with gastroente rology to assess for any blood loss due to iron deficiency . Discussed repeat labs in about 4 weeks after completion of IV iron. Anemia 061686764 D64.9 Patient labs performed per his primary [...] 71. Vitamin B12 normal at 982. Patient is taking oral iron and oral vitamin B12. Will order additional labs for further evaluation . Will follow up with further recommenda tions. Patient is taking oral iron and oral vitamin B12. Thrombocyt openic disorder 006913599 D69.6 Patient labs performed per his primary [...] Hemoglobin 14.2 and hematocrit 42. Platelet count 44157 Discussed thrombocyt openia likely secondary to cirrhosis. [id number] Slade Lennon PA-C [facility] the [facility] [address] [address] 06/18/2024 12:28:35 06/18/2024 13:45:46 Cirrhosis of liver 28705444 K74.60 Iron defic iency anemia 42735454 D50.9 Vascular e ctasia of gastric antrum 22548476 K31.819 Upper gastrointestinal bleeding 55439555 K92.89 Bilateral lower limb edema 106353762 R60.0 Hepatic encephalopathy 80596984 K76.82 [id number] Bran Gregg PA-C [facility] [address] [place] [address] 06/24/2024 13:00:29 06/24/2024 13:17:45 Anemia 577127665 D64.9 Patient labs performed per his primary [...] 71. Vitamin B12 normal at 982. Patient is taking oral iron and oral vitamin B12. Will order additional labs for further evaluation . Will follow up with further recommenda tions. Patient is taking oral iron and oral vitamin B12. [id number] Bran Gregg PA-C [facility]emat[facility] [address] [place] [address] 08/21/2024 13:56:48 08/21/2024 15:11:26 Leukopenia 01373850 D72.819 Patient labs performed per his primary [...] Hemoglobin 14.2 and hematocrit 42. Platelet count 15250 Labs on June 28, 2022 with WBC [...] 3.8. Hemoglobin 11.1. Hematocrit 34.3. Platelet count 39552. MCV 91.5. GFR greater than 60. Albumin 3.2. Total protein 7.1. Normal liver function testing. Patient returns on February 03, 2023. Discussed repeat labs today. Patient had labs per his primary care provider on April 29, 2024 with white blood cell count 2.3. Hemoglobin 11.1. Platelet count 66987. Serum iron low at 24 and iron saturation 6%. Ferritin 37. Patient is taking ferrous sulfate 325 mg 1 tab p.o. t.i.d.. Discussed infusional iron since persistent iron deficiency despite oral iron. Patient denies any bleeding or signs of infection. Patient instructed to follow-up with gastroente rology to assess for any blood loss due to iron deficiency . 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 He had an EGD with thermal therapy applied May 2024. Patient returns on August 21, 2024. Patient has completed infusional iron. Patient is feeling weak and fatigued. Patient denies any bleeding or signs of infection. Discussed repeat labs today. Will follow up with further recommenda tions. Will notify patient if infusional iron is required at this time. Anemia 072079365 D64.9 Patient labs performed per his primary [...] 71. Vitamin B12 normal at 982. Patient is taking oral iron and oral vitamin B12. Will order additional labs for further evaluation . Will follow up with further recommenda tions. Patient is taking oral iron and oral vitamin B12. Thrombocyt openic disorder 442351715 D69.6 Patient labs performed per his primary [...] Hemoglobin 14.2 and hematocrit 42. Platelet count 00286 Discussed thrombocyt openia likely secondary to cirrhosis. [id number] Maxi Goodwin MD [facility] [address] [place] [address] 09/12/2024 13:28:16 09/12/2024 16:06:00 Atherosclerosis of coronary artery without angina pectoris 8050008286 90158 I25.10 remote history of PCI. Continue medical management . Not on any antiplatel et agent due to chronic anemia possibly due to GI blood loss Essential hypertension 13804647 I10 Continue current medication . Keep log Low-salt diet < 2 gm Na/day, Regular exercise Weight loss Heart murmur 57518365 R0 1.1 echo pending [id number] Slade Lennon PA-C [facility] the [address] [facility] [address] [place] [address] 11/01/2024 10:44:18 11/01/2024 12:18:22 Cirrhosis of liver 28429177 K74.60 Vascular e ctasia of gastric antrum 30096835 K31.819 Hepatic encephalopathy 60272845 K76.82 Anemia due to blood loss 953862541 D50.0 [id number] Bran Gregg PA-C [facility] [address] [place] [address] 12/12/2024 13:02:17 12/12/2024 13:26:58 Leukopenia 53066207 D72.819 Patient labs performed per his primary [...] Hemoglobin 14.2 and hematocrit 42. Platelet count 08325 Labs on June 28, 2022 with WBC [...] 3.8. Hemoglobin 11.1. Hematocrit 34.3. Platelet count 68618. MCV 91.5. GFR greater than 60. Albumin 3.2. Total protein 7.1. Normal liver function testing. Patient returns on February 03, 2023. Discussed repeat labs today. Patient returns on December 12, 2024. Patient was hospitaliz ed at [facility] for a gi bleed 09/30/24-. He had varices banded and received 7 units of blood at that time. Follow up EGD and November 13, 2024 with no evidence of blood loss. Labs on August 21, 2024 with pancytopen ia. White blood cell count 2.1. Hemoglobin 6.7 and hematocrit 23.2. Platelet count 44382. serum iron low at 26 and iron [...] iron is required at this time Anemia 826537150 D64.9 Patient labs performed per his primary [...] required at this time. Thrombocyt openic disorder 251172269 D69.6 Patient labs performed per his primary [...] Hemoglobin 14.2 and hematocrit 42. Platelet count 11555 Discussed thrombocyt openia likely secondary to cirrhosis. MRI of lum bar spine abnormal 715054936 R93.7 Patient returns on December 12, 2024. Patient states he has had muscle spasms and tremors for the past 6 months. States he has had multiple falls due to the tremor since spasms. He has difficulty eating with utensils at times due to tremors. He has been following up with his primary care provider for this. He recently had MRI of his back [facility]. Reviewed MRI today and it states there is diffuse abnormal decreased marrow signal which could be secondary to marrow infiltrati on secondary to neoplasm, hematologi gil disease, or myelofibro sis. Multilevel degenerati ve disc disease was also noted. Will order labs for further evaluation today. Discussed bone marrow biopsy for further evaluation . Patient agreeable. Will order. History of esophageal varices [id number] Z87.19 Patient returns on December 12, 2024. Patient was hospitaliz ed at [facility] for a gi bleed 09/30/24-. He had varices banded and received 7 units of blood at that time. Follow up EGD and November 13, 2024 with no evidence of blood loss. [id number] Slade Lennon PA-C [facility] the [address] [facility] [address] [place] [address] 12/16/2024 12:28:41 12/16/2024 13:52:09 Anemia due to blood loss 632195426 D50.0 Cirrhosis of liver 96700 007 K74.60 Hepatic encephalopathy 10584890 K76.82 Vascular e ctasia of gastric antrum 57764779 K31.819 Abnormal movement 550565 002 G25.9 [id number] Bran Gregg PA-C [facility]emat[facility] [address] [facility] [address] [place] [address] 12/31/2024 13:33:20 12/31/2024 14:30:13 Leukopenia 27491559 D72.819 Patient labs performed per his primary [...] Hemoglobin 14.2 and hematocrit 42. Platelet count 73018 Labs on June 28, 2022 with WBC [...] 3.8. Hemoglobin 11.1. Hematocrit 34.3. Platelet count 30577. MCV 91.5. GFR greater than 60. Albumin 3.2. Total protein 7.1. Normal liver function testing. Patient returns on February 03, 2023. Discussed repeat labs today. Patient was hospitaliz ed at [facility] for a GI bleed 09/30/24-. He had [...] He recently had MRI of his back [facility]. Reviewed MRI and it states there is [...] Hemoglobin 6.7 and hematocrit 23.2. Platelet count 28893. serum iron low at 26 and iron saturation 6%. Ferritin 13. Labs on December 12, 2024 with pancytopen ia. White blood cell count 2. Patient is asymptomat ic. Patient denies any signs of infection. Leukopenia likely secondary to cirrhosis. Anemia 397607199 D64.9 Patient labs performed per his primary [...] at 982. Patient was hospitaliz ed at [facility] for a GI bleed 09/30/24-. He had [...] He recently had MRI of his back [facility]. Reviewed MRI and it states there is [...] Hemoglobin 6.7 and hematocrit 23.2. Platelet count 64428. serum iron low at 26 and iron saturation 6%. Ferritin 13. Patient returns on December 31, 2024. Bone marrow biopsy was ordered at previous visit but it has not been scheduled yet. Will make sure this is scheduled. Labs on December 12, 2024 with pancytopen ia. White blood cell count 2. Hemoglobin 7.1 and hematocrit 26.8. Platelet count 78310. Serum iron low at 19 and iron [...] should the need arise. Thrombocyt openic disorder 511198381 D69.6 Patient labs performed per his primary [...] Hemoglobin 14.2 and hematocrit 42. Platelet count 74530 Discussed thrombocyt openia likely secondary to cirrhosis. MRI of lum bar spine abnormal 776444571 R93.7 Patient states he has had all over muscle spasms for the past 6 months. States he has had multiple falls due to the muscle spasms. He has difficulty eating with utensils at times due to tremors. He has been following up with his primary care provider for this. He recently had MRI of his back [facility]. Reviewed MRI and it states there is [...] this is scheduled. History of esophageal varices [id number] Z87.19 Patient returns on December 12, 2024. Patient was hospitaliz ed at [facility] for a gi bleed 09/30/24-. He had [...] by Organization Details LastModified Time None Recorded Advance Directives Directive None Recorded Payers Encounter Date Sequence Insurance Name Policy Number Policy Grimm Covered Member ID Grimm Member ID Guarantor Name 11/01/2024 2 [place] [facility] [place] FFS/TRADITION [place] Bartolo Hendricksno [id number] Bartolo Hendrickson 11/01/2024 1 [facility] (MEDICARE REPLACEMENT/A DVANTAGE - HMO) [place]DSNP Bartolo Hendrickson [id number] Bartolo Hendrickson 12/12/2024 2 [place]/TRADITION [place] Bartolo Hendrickson [id number] Bartolo Hendrickson 12/12/2024 1 [facility] (MEDICARE REPLACEMENT/A DVANTAGE - HMO) [place]DSNP Bartolo Hendrickson [id number] Bartolo Hendrickson 12/16/2024 2 [facility]ICA[facility] HE[facility] CHOICES - FFS/TRADITION AL Bartolo Hendrickson [id number] Bartolo Hendrickson 12/16/2024 1 [facility] (MEDICARE REPLACEMENT/A DVANTAGE - HMO) [id number] Bartolo Hendrickson [id number] Bartolo Hendrickson 12/31/2024 2 [facility] HEALTH CHOICES - FFS/TRADITION AL Bartolo Hendrickson [id number] Bartolo Hendrickson 12/31/2024 1 [facility] (MEDICARE REPLACEMENT/A DVANTAGE - HMO) [id number] Bartolo Hendrickson [id number] Bartolo Hendrickson Notes Date Note Type Note Provider Name and Address Organization Details Recorded Time 11/01/2024 text/html CURRENT (11/01/24 ): Mr. 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 He presents to the office today for follow-up from a recent hospitalization at the [facility]. He was air-lifted there earlier this month from [facility] due to upper GI bleed and severe [...] tremor. He denies hematemesis, melena, or hematochezia. Slade Lennon PA-C [address], [place], [address], [place] [facility] [place] 11/01/2024 20:50:25 12/12/2024 text/html 63-year-old male returns for evaluation [...] Hemoglobin 14.2 and hematocrit 42. Platelet count 14617 Patient does not smoke. Denies any recent [...] 3.8. Hemoglobin 11.1. Hematocrit 34.3. Platelet count 61760. MCV 91.5. GFR greater than 60. Albumin 3.2. Total protein 7.1. Normal liver function testing. Labs on February 03, 2023 with improvement in platelet count 103317. Improvement in white blood cell count 3.4. [...] cell count 2.3. Hemoglobin 11.1. Platelet count 92577. Serum iron low at 24 and iron [...] December 12, 2024. Patient was hospitalized at [facility] for a gi bleed 09/30/24-10/03/24. He had [...] He recently had MRI of his back [facility]. Reviewed MRI today and it states [...] Hemoglobin 6.7 and hematocrit 23.2. Platelet count 49507. serum iron low at 26 and iron [...] required at this time. Bran Gregg PA-C [address], [place], [address], [place] [facility] [place] 12/12/2024 14:04:02 12/16/2024 text/html PREVIOUS ( 5): Mr. 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 He presents to the office today for follow-up from a recent hospitalization at the [facility]. He was air-lifted there earlier this month from [facility] due to upper GI bleed and severe [...] back of his legs. Slade Lennon PA-C [address], [place], [address], [place] [facility] [place] 12/16/2024 15:20:09 12/31/2024 text/html 63-year-old male returns for evaluation [...] Hemoglobin 14.2 and hematocrit 42. Platelet count 49210 Patient does not smoke. Denies any recent [...] 3.8. Hemoglobin 11.1. Hematocrit 34.3. Platelet count 50025. MCV 91.5. GFR greater than 60. Albumin 3.2. Total protein 7.1. Normal liver function testing. Labs on February 03, 2023 with improvement in platelet count 376134. Improvement in white blood cell count 3.4. [...] cell count 2.3. Hemoglobin 11.1. Platelet count 33004. Serum iron low at 24 and iron [...] applied May 2024. Patient was hospitalized at [facility] for a GI bleed 09/30/24-10/03/24. He had [...] He recently had MRI of his back [facility]. Reviewed MRI and it states there is [...] Hemoglobin 6.7 and hematocrit 23.2. Platelet count 68972. serum iron low at 26 and iron saturation 6%. Ferritin 13. Patient returns on December 31, 2024. Bone marrow biopsy was ordered at previous visit but it has not been scheduled yet. Will make sure this is scheduled. Labs on December 12, 2024 with pancytopenia. White blood cell count 2. Hemoglobin 7.1 and hematocrit 26.8. Platelet count 02192. Serum iron low at 19 and iron [...] should the need arise. Bran Gregg PA-C [address], [place], [address] [place] 12/31/2024 14:44:31
--- OUTSIDE RECORDS SUMMARY | 2025-01-14 16:57 | XMS_ITS | Continuity of Care Document ---
Author Organization [facility] Phone Care Team Providers Care Asphalt Surface Heater Operator Name Role Phone BRAN AGUAYO Admitting AGUSTIN WARD Primary Care BRAN AGUAYO Primary Attending [phone] ALLERGIES AND ADVERSE REACTIONS ALLERGIES AND ADVERSE REACTIONS Code System Allergy Substance Adverse Reaction Date Reaction (Severity) Comment Status Reported By [place] By [id number] RXNorm Celebrex Adverse reaction to substance fluid retention active [id number] on November 01, 2024 9:05:32 PM UTC FAMILY HISTORY RELATION: Father Status: Cause of : Malignant tumor of stomach Age at : 60 SNOMED-CT Diagnosis Age At Onset [id number] Hypertensive disorder [id number] Smoker [id number] Alcoholism RELATION: Mother Status: Cause of : Unknown Age at : 74 SNOMED-CT Diagnosis Age At Onset [id number] Chronic obstructive lung disease RESULTS Patient: GREG Rees Date of : December 27 1 LABORATORY RESULTS ORDER 200: PRBC UNIT PACKED RED CELLS (LOINC: 66855-8) ORDER DATE: December 13, 2024 12:48:00 PM UTC Specimen Source: Specimen Type: PERFORMING LAB: [address] [id number] Result Comment: Final Result Date: December 13, 2024 12:47:00 PM UTC (TECH: HL7) LOINC TEST [place] [address]-1 PROMIS item bank - cognitive function - version 2.0 N Transfused December 13, 2024 12:47:00 PM UTC (TECH: lif) 1251-8 Major crossmatch [Interpretation] by Immediate spin N COMPATIBLE December 13, 2024 12:47:00 PM UTC (TECH: HL7) 881-3 ABO and Rh group [Type] in Blood from Blood product unit N O+ December 13, 2024 12:47:00 PM UTC (TECH: HL7) 79867-6 Lot number of Blood product unit N [id number] December 13, 2024 12:47:00 PM UTC (TECH: HL7) 16833-6 Date emergency [facility] standard operating procedure issued N [id number] December 13, 2024 12:47:00 PM UTC (TECH: HL7) 43475-8 Product version code Software N [id number] December 13, 2024 12:47:00 PM UTC (TECH: HL7) 934-0 Blood product unit ID [#] N Red Blood Cells December 13, 2024 12:47:00 PM UTC (TECH: lif) 3157-5 Volume of Blood N 350 Asif 2024 12:47:00 PM UTC (TECH: MSH) 63354-8 Specimen expiration date of Blood N [id number] December 13, 2024 12:47:00 PM UTC (TECH: HL7) ORDER 300: PRBC UNIT PACKED RED CELLS (LOINC: 04062-9) ORDER DATE: December 13, 2024 12:49:00 PM UTC Specimen Source: Specimen Type: PERFORMING LAB: [address] [id number] Result Comment: Final Result Date: December 13, 2024 12:48:00 PM UTC (TECH: HL7) LOINC TEST [place] [address]-7 PROMIS item bank - cognitive function - version 2.0 N Transfused December 13, 2024 12:48:00 PM UTC (TECH: lif) 1251-8 Major crossmatch [Interpretation] by Immediate spin N COMPATIBLE December 13, 2024 12:48:00 PM UTC (TECH: HL7) 881-3 ABO and Rh group [Type] in Blood from Blood product unit N O+ December 13, 2024 12:48:00 PM UTC (TECH: HL7) 40430-8 Lot number of Blood product unit N [id number] December 13, 2024 12:48:00 PM UTC (TECH: HL7) 32109-1 Date [facility] standard operating procedure issued N [id number] December 13, 2024 12:48:00 PM UTC (TECH: HL7) 50285-6 Product version code Software N [id number] December 13, 2024 12:48:00 PM UTC (TECH: HL7) 934-0 Blood product unit ID [#] N Red Blood Cells December 13, 2024 12:48:00 PM UTC (TECH: lif) 3157-5 Volume of Blood N 350 Asif h 2024 12:48:00 PM UTC (TECH: [facility] 77454-2 Specimen expiration date of Blood N [id number] December 13, 2024 12:48:00 PM UTC (TECH: HL7) ORDER 400: HGB/HCT POSTTRANS FUSION (LOINC: 42584-1) ORDER DATE: December 13, 2024 4:23:00 PM UTC Specimen Source: EDTA Specimen Type: Blood specime n with EDTA PERFORMING LAB: [address] [id number] Result Comment: Final Result Date: December 13, 2024 8:58:00 PM UTC (TECH: [facility]) LOINC TEST FLAG RESULT REFERENCE RANGE UPDA KILO BY 718-7 Hemoglobin [Mass/volume] in Blood L 8.7 gm/dl 13.5 gm/dl - 18.0 gm/dl December 13, 2024 8:58:00 PM UTC (TECH: [facility]) 87599-0 Hematocrit [Volume Fraction] of Blood L 31.3 % 42.0 % - 52.0 % December 13 8:58:00 PM UTC (TECH: [facility]) LABORATORY NARRATIVE RESULTS Information is not available RADIOLOGY RESULTS Information is not available PATHOLOGY NARRATIVE RESULTS Information is not available MICROBIOLOGY RESULTS No Micro Labs/Results Exist for Patient BLOOD ADMIN RESULTS Information is not available MEDICATIONS HOME MEDICATIONS Status RXNORM [facility] Medication Dose Route Frequency Dates Comments Reported By Updated By Active [id number] 94349 47270 5 Allopurinol Oral Tablet 300 MG 1.0 TAB ORAL DAILY Last Dose: PATIENT [id number] on December 24, 2024 5:35:52 PM UTC Active 366595 63610 36297 0 amLODIPine Besylate Oral Tablet 10 MG 1.0 TAB ORAL DAILY Last Dose: PATIENT [id number] on December 24, 2024 5:35:53 PM UTC Active 372118 94351 86248 0 buPROPion HCl ER (SR) Oral Tablet Extended Release 12 Hour 150 MG 1.0 TAB ORAL TID Last Dose: PATIENT [id number] on December 24, 2024 5:35:53 PM UTC Active 111422 59785 02067 1 busPIRone HCl Oral Tablet 10 MG 1.0 TAB ORAL BID Last Dose: PATIENT [id number] on December 24, 2024 5:35:53 PM UTC Active 432870 62134 71831 6 Ferrous Sulfate Oral Tablet 325 (65 Fe) MG 1.0 TAB ORAL DAILY Last Dose: PATIENT [id number] on December 24, 2024 5:35:53 PM UTC Active 668449 58524 54616 1 Gabapentin Oral Tablet 800 MG 1.0 TAB ORAL TID Last Dose: PATIENT [id number] on December 24, 2024 5:35:53 PM UTC Active 731898 41465 94838 2 hydrOXYzine Pamoate Oral Capsule 50 MG 1.0 CAP ORAL DAILYPRN Last Dose: PATIENT paul on December 24, 2024 5:35:53 PM UTC Active 1847980 34253 02883 1 oxyCODONE-Ac etaminophen Oral Tablet 10-325 MG 1.0 TAB ORAL DAILYPRN Last Dose: PATIENT [id number] on December 24, 2024 5:35:53 PM UTC Active 6236117 63607 00697 0 OxyCONTIN Oral Tablet ER 12 Hour Abuse-Deterr ent 40 MG 1.0 TAB ORAL BID Last Dose: PATIENT [id number] on December 24, 2024 5:35:53 PM UTC Active 260896 11708 64778 0 Pantoprazole Sodium Oral Tablet Delayed Release 40 MG 1.0 TAB ORAL DAILY Last Dose: PATIENT [id number] on December 24, 2024 5:35:54 PM UTC Active 437051 12929 74358 5 Sertraline HCl Oral Tablet 100 MG 1.0 TAB ORAL DAILY Last Dose: PATIENT [id number] on December 24, 2024 5:35:54 PM UTC Active 898587 85164 88636 9 SUMAtriptan Succinate Oral Tablet 100 MG 1.0 TAB ORAL DAILYPRN Last Dose: PATIENT [id number] on December 24, 2024 5:35:54 PM UTC Active 362269 36803 49810 1 Tamsulosin HCl Oral Capsule 0.4 MG 1.0 TAB ORAL DAILY Last Dose: PATIENT [id number] on December 24, 2024 5:35:54 PM UT Active 228979 14087 76771 7 tiZANidine HCl Oral Capsule 4 MG 1.0 TAB ORAL DAILYPRN Last Dose: PATIENT [id number] on December 24, 2024 5:35:54 PM UT DISCHARGE MEDICATIONS Status RXNORM NDC Medication Dose Route Frequency Dates Comments Physician Updated By No Discharge Medication Info rmation Available INPATIENT MEDICATIONS Status RXNORM NDC Medication Dose Route Frequency Rat e Quantity Dates Comments Physician Updated By Discont inued 368780 5223 4677 361 acetaminoph en (TYLENOL) 325 MG TABS 650.0 MG ORAL ONE TIME ADMINISTRA TION (UNSCHEDUL ED) Start: December 13, 2024 1:48:0 0 PM UT End: December 13, 2024 2:20:4 3 PM UT DEDE Bhatia [id number] on December 13, 2024 2:20:00 PM UT Discont inued 1389202 0164 8363 701 cetirizine (ZyrTEC) 10 MG TABS 10.0 MG ORAL ONE TIME ADMINISTRA TION (UNSCHEDUL ED) Start: December 13, 2024 1:48:0 0 PM UTC End: December 13, 2024 2:20:4 4 PM [facility] DEDE Bhatia [id number] on December 13, 2024 2:20:00 PM UT Discont inued 497217 5130 3957 001 FERRLECIT 12.5 MG/ML SOLN 125.0 MG INTRAV ENOUS ONE TIME ADMINISTRA TION (UNSCHEDUL ED) 120.0 ML/HR Start: December 24, 2024 12:00: 00 PM UTC End: December 24, 2024 5:53:2 0 PM UT DEDE Bhatia [id number] on December 24, 2024 5:53:00 PM UT Discont inued 6818675 5838 9710 167 sodium chloride 0.9% SOLN 100.0 ML INTRAV ENOUS ONE TIME ADMINISTRA TION (UNSCHEDUL ED) 120.0 ML/HR Start: December 24, 2024 12:00: 00 PM UTC End: December 24, 2024 5:53:1 9 PM UT DEDE Bhatia [id number] on December 24, 2024 5:53:00 PM UT SOCIAL HISTORY SOCIAL HISTORY SNOMED-CT Social History Element Description Effective Dates Offered Cessation Comment UpdatedBy [id number] Historical Tobacco smoking status Never Smoked [id number] on November 12, 2024 5:05:01 PM UT [...] value for each vital sign as of December 30, 2024 3:54:11 PM [facility] Loinc Code Vital Sign Activity Date Result Updated By 8302-2 Body height December 13, 2024 4:15:12 PM UT 180.34 cm (71.0 in) [id number] on December 13, 2024 4:15:12 PM [facility] 11255-1 Body mass index (BMI ) [Ratio] December 13, 2024 4:15:12 PM UT 42.767 kg/m2 [id number] on December 13, 2024 4:15:12 PM [facility] 3140-1 Body Surface Area Derived From Formula December 13, 2024 4:15:12 PM UT 2.5289 m2 [id number] on December 13, 2024 4:15:12 PM [facility] 53408-3 Body weight Measured December 13 4:15:12 PM UT 139.09 kg (307.0 lb) [id number] on December 13, 2024 4:15:12 PM [facility] 8867-4 Heart rate December 24, 2024 6:52:00 PM UT 55 /min [id number] on December 24, 2024 7:37:19 PM [facility] 8462-4 Diastolic blood pressure December 24, 2024 6:52:00 PM UT 55.0 mm[Hg] [id number] on December 24, 2024 7:37:19 PM [facility] 28913-1 Oxygen saturation in Arterial blood by Pulse oximetry December 24, 2024 5:15:00 PM UT 95.0 % [id number] on December 24, 2024 5:39:57 PM UT 9279-1 Respiratory rate December 24, 2024 6:52:00 PM UTC 18 /min [id number] on December 24, 2024 7:37:19 PM UT 8480-6 Systolic blood pressure December 24, 2024 6:52:00 PM UTC 114.0 mm[Hg] [id number] on December 24, 2024 7:37:19 PM UT PEDIATRIC GROWTH CHART - VITAL SIGNS This section displays Head C ircumference Percentile, Weight for Length Percentile and BMI Percentile Loinc Code Pediatric Measure Age (Months) Result Updat ed By No Pediatric Growth Chart Pe rcentile Information Available. HEALTH CONCERNS Problems Concern Status Health Concern problem infor mation not available. Smoking Status Status Years Used Consumed packs p er day Health Concern smoking histo ry information not available. Family History Concern Status Health Concern family histor y information not available. ENCOUNTERS ENCOUNTER INFORMATION Reason for Visit Not Specified Admission December 13, 2024 2:09:[address] [id number] Discharge 2024 3:58:00 PM UT DI SCHARGED TO HOME OR SELF CARE ENCOUNTER DIAGNOSES Notes information is not dai ilable. Code System Diagnosis Onset Date Diagnosis information is not available. ABSTRACT DIAGNOSES Code System Diagnosis Updated By D50.9 ICD10 IRON DEFICIENCY ANEMIA, UNSP ECIFIED [id number] on December 30, 2024 3:53:47 PM UT K90.9 ICD10 INTESTINAL MALABSORPTION, UN SPECIFIED [id number] on December 30, 2024 3:53:47 PM UT R71.0 ICD10 PRECIPITOUS DROP IN HEMATOCR IT [id number] on December 30, 2024 3:53:47 PM UT D50.9 ICD10 IRON DEFICIENCY ANEMIA, UNSP ECIFIED [id number] on December 30, 2024 3:53:48 PM UT K90.9 ICD10 INTESTINAL MALABSORPTION, UN SPECIFIED [id number] on December 30, 2024 3:53:48 PM UT Z88.6 ICD10 ALLERGY STATUS TO ANALGESIC AGENT [id number] on December 30, 2024 3:53:48 PM UT CARE TEAM Care Asphalt Surface Heater Operator Role BRAN AGUAYO Admitting AGUSTIN WARD Primary Care BRAN AGUAYO Primary Attending HOSPITAL DISCHARGE INSTRUCTION DISCHARGE INSTRUCTION Encounter [id number] Admit Date December 13, 2024 2:09: 00 PM UTC Discharge Date 2024 3:58: 00 PM UT PATIENT EDUCATION SUMMARY Patient/Visit Information: Patient Name: BARTOLO GARZA Diag: Attending Caregiver: DEDE Bhatia Discharge Instruction Sheets Provided: Blood Transfusion, Adult, Jmjo-gs-Ywog Blood Transfusion, Adult Discharge Information Fall Prevention in Hospitals and in the Home Medication Side Effects Suicide - Managing your Feelings Patient Instructions: Followup Appointments/Instructions: CARE TEAM CARE material inspector Role on Team Status Start Date End Date Update d By SYLVIA MEDINA PCP normal December 13, 2024 12:44:51 PM UTC 2024 3:58:00 PM UTC [id number] on December 13, 2024 12:44:51 PM UT DEDE DUDLEY Attending normal December 13, 2024 12:44:51 PM UTC 2024 3:58:00 PM UTC [id number] on December 13, 2024 12:44:51 PM UT DEDE DUDLEY Admitting normal December 13, 2024 12:44:51 PM UTC 2024 3:58:00 PM UTC [id number] on December 13, 2024 12:44:51 PM UT
[2025-01-14 16:58] LABS: Albumin Level 3.3 g/dl (3.5-5.0); Basophils % 0.5 % (0.1-2.0); Chloride 104 mmol/L (98-107); Eosinophils % 1.9 % (0.1-12.0); Hematocrit 24.4 % (42.0-52.0); Lymphocytes # 0.4 K/mm3 (0.7-4.5); Lymphocytes % 18.4 % (10-50); Mean Corpuscular HGB Conc 27.5 g/dL (31.8-35.4); Monocytes # 0.2 K/mm3 (0.1-1.0); Monocytes % 8.2 % (1.7-9.3); Neutrophils # 1.5 K/mm3 (1.8-7.8); Neutrophils % 70.5 % (37.0-80.0); Nucleated Red Blood Cells # 0 10^3/uL; Nucleated Red Blood Cells % 0 %; Platelet Count 74 K/mm3 (142-424); Potassium 3.9 mmoL/L (3.5-5.1); Red Blood Count 3.05 M/mm3 (4.60-6.20); Red Cell Distribution Width 18.6 % (11.5-17.5); Red Cell Distribution Width-SD 54.3 fL; Sodium 140 mmol/L (136-145); White Blood Count 2.1 K/mm3 (4.8-10.8)
[2025-01-14 17:01] LABS: Alanine Aminotransferase 27 U/L (12-78); Alkaline Phosphatase 131 U/L (38-126); Anion Gap 11.9 mEq/L (5-15); Aspartate Amino Transferase 47 U/L (17-59); Bilirubin,Total 0.7 mg/dl (0.2-1.3); Blood Urea Nitrogen 20 mg/dl (9-20); Calcium 8.5 mg/dl (8.4-10.2); Carbon Dioxide 28 mmol/L (22.0-30.0); Creatinine Clearance Estimated 73 mL/min (50-200); Estimated Glomerular Filt Rate 68 ml/min (>60); GFR (African American) 82 ML/MIN (>60); Globulin 3.3 g/dL (1.3-3.2); Glucose 110 mg/dl (74-100); Lipase 68 U/L (23-300); Total Protein,Serum 6.6 g/dl (6.3-8.2)
[2025-01-14 17:04] LABS: Hemoglobin 6.7 g/dL (14.1-18.0)
[2025-01-14 17:05] LABS: Activated Partial Thrombo Time 23.9 seconds (22.8-30.6); Prothrombin Time 12.2 seconds (10.1-12.5)
--- NOTE | 2025-01-14 17:07 | ECG_ITS ---
APPROVED REPORT Exam: Resting ECG HR:96 bpm ECG Measurements Heart Rate 96 AXES LA 172 P 37 QRSd 113 QRS -18 QT 361 T 83 QTc 415 Conclusion SINUS RHYTHM LEFT VENTRICULAR HYPERTROPHY AND ST-T CHANGE [VOLTAGE CRITERIA PLUS ST/T ABNORMALITY] POSSIBLE LATERAL MYOCARDIAL INFARCTION , OF INDETERMINATE AGE [30 ms Q WAVE IN I/aVL/V5/V6] No STEMI Electronically signed by : LUCINDA KEE, 01/14/2025 23:49:59
[2025-01-14] MEDS: CEFTRIAXONE SODIUM 1 GM in 0.9 % SODIUM CHLORIDE 50 ML IV (17:18)
[2025-01-14] MEDS: ONDANSETRON 4MG/2ML VIAL 4 MG IV ×2 (17:19→21:11)
--- NOTE | 2025-01-14 17:21 | PC.NURSE ---
spoke with she does not want blood cultures
--- NOTE | 2025-01-14 17:24 | CT_ITS ---
PROCEDURE INFORMATION: Exam: CTA Abdomen and Pelvis With Contrast Exam date and time: 01/14/2025 6:02 PM Age: 64 years old Clinical indication: Other: Abdomen pain/distension; Additional info: Gi bleed, h/o varices, abd pain/distension TECHNIQUE: Imaging protocol: Computed tomographic angiography of the abdomen and pelvis with contrast. Exam focused on the arteries. 3D rendering (Not supervised by radiologist): MIP and/or 3D reconstructed images were created by the technologist. Radiation optimization: All CT scans at this facility use at least one of these dose optimization techniques: automated exposure control; mA and/or kV adjustment per patient size (includes targeted exams where dose is matched to clinical indication); or iterative reconstruction. Contrast material: ISOVUE; Contrast volume: 90 ml; Contrast route: INTRAVENOUS (IV); COMPARISON: CT ANGIO ABDOMEN PELVIS 11/22/2024 4:54 AM FINDINGS: Aorta: No aortic aneurysm. No aortic dissection. Celiac trunk and mesenteric arteries: No occlusion or significant stenosis. Renal arteries: No occlusion or significant stenosis. Right iliac arteries: No occlusion or significant stenosis. Left iliac arteries: No occlusion or significant stenosis. Liver: Nodular contours of the liver compatible with cirrhosis. Gallbladder and biliary ducts: There are surgical clips within the gallbladder fossa. Pancreas: Unremarkable. No mass. No ductal dilation. Spleen: Splenomegaly measures 18.7 cm. Adrenal glands: Unremarkable. No mass. Kidneys and ureters: Unremarkable. No solid mass. No hydronephrosis. Stomach and bowel: Mild thickening and inflammatory changes of the ascending, transverse, and descending colon which can be seen with infectious or inflammatory colitis. Blush of contrast at a hepatic flexure diverticulum (image 85 of series 1003) may represent location of suspected GI bleed. No intraluminal pooling of enteric contrast at this location. Appendix: No evidence of appendicitis. Intraperitoneal space: Moderate volume ascites surrounds the liver and spleen extending to the pelvis. Lymph nodes: Unremarkable. No enlarged lymph nodes. Urinary bladder: Unremarkable. No mass. Reproductive: Unremarkable as visualized. Bones/joints: Moderate loss of intervertebral disc space with degenerative changes involving L1 through S1. Soft tissues: Unremarkable. IMPRESSION: 1. Nodular contours of the liver compatible with cirrhosis. 2. Moderate volume ascites surrounds the liver and spleen extending to the pelvis. 3. Splenomegaly measures 18.7 cm. 4. Mild thickening and inflammatory changes of the ascending, transverse, and descending colon which can be seen with infectious or inflammatory colitis. 5. Blush of contrast at a hepatic flexure diverticulum (image 85 of series 1003) may represent location of suspected GI bleed. No intraluminal pooling of enteric contrast at this location.
[2025-01-14] MEDS: PANTOPRAZOLE SODIUM 80 MG in 0.9 % SODIUM CHLORIDE 100 ML 100 MG IV (17:25)
--- NOTE | 2025-01-14 17:26 | PC.NURSE ---
calling for medical records at this time
[2025-01-14 17:29] LABS: Lactic Acid 2.1 mmol/L (0.7-2.1)
[2025-01-14] MEDS: OCTREOTIDE ACETATE 50 MCG in 0.9 % SODIUM CHLORIDE 50 ML 101 MCG IV (17:33)
[2025-01-14] MEDS: 0.9 % SODIUM CHLORIDE 1000ML 1,000 ML 999 ML IV (17:38)
--- NOTE | 2025-01-14 17:53 | PC.NURSE ---
pt is at CT at this time
[2025-01-14] MEDS: 0.9 % SODIUM CHLORIDE 50 ML VIAL IV (18:05)
[2025-01-14] MEDS: SODIUM CHLORIDE 0.9% 10ML SYR (RAD ONLY) 10 ML IV (18:06)
[2025-01-14] MEDS: OCTREOTIDE ACETATE 500 MCG in 0.9 % SODIUM CHLORIDE 250 ML 25.5 MCG IV (18:16)
[2025-01-14] MEDS: IOPAMIDOL-370 (76%);100ML BOTTLE 90 ML IV (18:27)
--- NOTE | 2025-01-14 19:00 | PC.NURSE ---
blood initiated @ 1855. verified blood products with lab as wekk as Alexander Rubalcava.
[2025-01-14 19:08] LABS: Hepatitis C Ab Qual. W/ RFX NEGATIVE (Negative)
--- NOTE | 2025-01-14 20:23 | PC.NURSE ---
shell core and molding supervisor notified of patient admission
--- NOTE | 2025-01-14 20:30 | P.HP_ITS ---
<Statement entered by Jass Hammond MD - 01/15/25 17:04> Rounded on patient after nurse practitioner. Personally examined and interviewed patient. Agree with exam findings and care plan as documented. Required 4 units of blood overnight. No further active bleeding. 1 melenic stool prior to admission. Required oxygen due to volume transfused. GI to evaluate in the morning. Case was discussed with ER physician, request admission for stabilization and GI consult along with EGD. Medicine agreed to admit to ICU for further evaluation in the morning and transfusion overnight. History of Present Illness *Admission Date: 01/14/25 *Reason for visit:: Generalized weakness *History of present illness: A 64-year-old male with a history of cirrhosis, esophageal varices with prior gastrointestinal (GI) bleeds requiring banding, chronic kidney disease (CKD) st age 4, chronic anemia, and chronic pain on oxycodone 40 mg BID and Percocet Q8 PRN presents to the emergency department for evaluation of shortness of breath, general weakness, fatigue, abdominal discomfort, and blood in stools. He reports feeling unwell for a week, with a tense, distended abdomen, poor oral intake, and a large black bowel movement today, concerning for GI bleed. He follows with spot billing clerk Berto Jones in [place], with an appointment later this week, but worsening symptoms prompted EMS transport. He notes a severe GI bleed in September 2024 requiring 7 units of blood and transfer to . He reports nausea without vomiting. The history was obtained through interactive discussion with the patient, who is deemed reliable. On examination, the patient is pale, ill-appearing, lying in bed, tachycardic (HR in low 100s, later improved), with normal initial blood pressure (improved post-fluids, not specified), and no vital signs detailed for respiratory rate or saturation. Physical exam reveals abdominal distention with upper abdominal tenderness, no rebound or guarding. Post-admission, he developed pronounced nausea, vomiting, increased abdominal pain, diaphoresis, and pallor, attributed partly to missing pain medications (oxycodone/Percocet) since yesterday. Diagnostic workup includes labs, VBG, EKG, CT angiogram of abdomen/pelvis, and repeat CT. Labs show leukopenia (WBC 2.1), anemia (hemoglobin 6.7, hematocrit 24.4), thrombocytopenia (platelets 74), normal creatinine (1.1), GFR (68), normal sodium (140), potassium (3.9), elevated glucose (110), normal calcium (8.5), elevated alkaline phosphatase (131), low albumin (3.3), elevated globulin (3.3), normal PT/INR (1.10), APTT (23.9), and mildly elevated lactate (2.5, later 2.1). VBG shows pH 7.42, normal pCO2 (42.7), and normal bicarbonate (26.8). EKG, independently interpreted, shows normal sinus rhythm (rate 96), no acute ST changes, and nonspecific changes unchanged from prior. Initial CT angiogram, independently interpreted, shows mild intestinal wall thickening; radiology read confirms cirrhosis, moderate ascites, splenomegaly (18.7 cm), colonic thickening suggestive of colitis, and a hepatic flexure diverticulum contrast blush (possible GI bleed source) without intraluminal pooling. Repeat CT post-admission shows no significant changes. Blood type is O positive, antibody screen negative. Treatments implemented in the ED include a bolus of IV normal saline, IV pantoprazole (PPI), IV octreotide, and IV ceftriaxone (dose not specified, assumed 1 g) for suspected variceal bleed prophylaxis, and 2 units of packed red blood cells (RBCs) for anemia. Post-admission, hemoglobin dropped to 6.3, prompting 2 additional RBC units ordered. On reassessment, BP and tachycardia improved, with no further melena or hematemesis, but new nausea, vomiting, pain, diaphoresis, and pallor emerged, partly attributed to opioid withdrawal (missed oxycodone/Percocet). The patient was admitted to the hospitalist in stable condition, with GI consultation planned for the morning. [facility] Disclaimer: The information contained in this section may have been updated after the patient was seen, as this information can be updated by other users. Medical History (Updated 01/14/25 @ 21:34 by Luh De La Torre RN) Chronic anemia CKD (chronic kidney disease) Esophageal varices GI (gastrointestinal bleed) History of gastroesophageal reflux (GERD) Cirrhosis Social History Smoking Status: Never smoker alcohol intake: never current occupational status: disabled Travel in the last 8 weeks: None Have you lived/traveled outside US in past 30 days?: No Contact w/someone who lives/traveled outside US past 30 days?: No Exposure to someone with infectious disease in past 14 days?: No Do you have a fever (greater than 100.4 F or 38 C)?: No Have you tested positive for COVID-19: No Exposed to someone with COVID-19 in past 14 days?: No Do you have a sore throat?: No Do you have a cough?: No Do you have any weakness?: No Do you have any diarrhea?: No Are you experiencing any unusual bleeding?: No Do you have any muscle aches/pain?: No Do you have any abdominal pain?: No Are you experiencing loss of taste or smell?: No Other Medical History Have you received the Flu Vaccine for this season: No Have you received the Pneumonia Vaccine: No Review of Systems Review of Systems Review of systems (narrative): 13 point review of systems negative except as listed in HPI Meds Home Medications and Allergies Home Medications ?Medication ?Instructions ?Recorded ?Confirmed ?Type allopurinol 300 mg tablet 300 mg PO DAILY gout 03/27/18 01/14/25 History amlodipine 10 mg tablet (Norvasc) 10 mg PO DAILY htn 03/27/18 01/14/25 History buspirone 15 mg tablet 15 mg PO BID Anxiety 03/27/18 01/14/25 History carvedilol 25 mg tablet 25 mg PO BID htn 03/27/18 01/14/25 History colchicine 0.6 mg tablet (Colcrys) 0.6 mg PO DAILY gout 03/27/18 01/14/25 History ferrous sulfate 325 mg (65 mg 325 mg PO DAILY Supplement 03/27/18 01/14/25 History iron) capsule,extended release (iron ER) gabapentin 300 mg capsule 300 mg PO TID Pain 03/27/18 01/14/25 History oxycodone 20 mg tablet 40 mg PO BID Pain 03/27/18 01/14/25 History oxycodone-acetaminophen 10 mg-325 1 ea PO Q8HP PRN pain 03/27/18 01/14/25 History mg tablet pantoprazole 40 mg tablet,delayed 40 mg PO DAILY GERD 03/27/18 01/14/25 History release sertraline 100 mg tablet (Zoloft) 200 mg PO DAILY Depression 03/27/18 01/14/25 History spironolactone 50 mg tablet 50 mg PO DAILY Fluid 03/27/18 01/14/25 History tizanidine 4 mg capsule (Zanaflex) 4 mg PO NEEDED PRN spasms 03/27/18 01/14/25 History ondansetron 4 mg disintegrating 4 mg PO Q4H PRN Nausea 07/02/19 01/14/25 History tablet New Prescriptions to Start Prescriptions: Allergies Allergy/AdvReac Type Severity Reaction Status Date / Time No Known Allergies Allergy Verified 01/14/25 21:24 Exam Data for Last 24 hours Vital signs and Labs for Last 24 Hours: Temp Pulse Resp BP Pulse Ox O2 Del Method 98.4 F 82 16 145/75 H 97 Room Air 01/14/25 19:10 01/14/25 19:10 01/14/25 19:10 01/14/25 19:10 01/14/25 19:10 01/14/25 16:46 Laboratory Results - last 24 hr 01/14/25 16:40: WBC 2.1 L, RBC 3.05 L, Hgb 6.7 L*, Hct 24.4 L, MCV 80.0, MCH 22.0 L, MCHC 27.5 L, RDW 18.6 H, Plt Count 74 L, MPV 11.0 H, Neut % (Auto) 70.5, Lymph % (Auto) 18.4, [place] % (Auto) 8.2, Eos % (Auto) 1.9, Baso % (Auto) 0.5, Neut # (Auto) 1.5 L, Lymph # (Auto) 0.4 L, [place] # (Auto) 0.2, Eos # (Auto) 0.0, Baso # (Auto) 0.0, PT 12.2, INR 1.10, APTT 23.9, Sodium 140, Potassium 3.9, Chloride 104, Carbon Dioxide 28, Anion Gap 11.9, BUN 20, Creatinine 1.10, Estimated Creat Clear 73, Estimated GFR 68, Est GFR ( Amer) 82, Glucose 110 H, Calcium 8.5, Total Bilirubin 0.7, AST 47, ALT 27, Alkaline Phosphatase 131 H, Total Protein 6.6, Albumin 3.3 L, Globulin 3.3 H, Albumin/Globulin Ratio 1.0 L, Lipase 68 01/14/25 16:43: HCV Ab GHAZAL w/Rflx PCR Qn Negative 01/14/25 16:46: VBG pH 7.42 H, VBG pCO2 42.7, VBG pO2 42.2 H, VBG HCO3 26.8, VBG Total CO2 28.1 H, VBG O2 Saturation 75.5 H, VBG Base Excess 2.3, VBG Lactic Acid 2.5 H 01/14/25 16:52: Lactate 2.1, Blood Type O Positive, Antibody Screen Negative, Crossmatch (AHG) See Detail I & O for Last 24 hours: Intake & Output 01/11/25 01/12/25 01/13/25 01/14/25 23:59 23:59 23:59 23:59 Intake Total 0 / 0 Balance 0 / 0 Weight 137.438 kg Constitutional Constitutional: mild distress, morbidly obese and chronically ill appearing *Routine HEENT Exam Head: Present normocephalic Eye: Present EOMI and PERRL ENT: Present mucous membranes moist *Routine Neck Exam Neck: Present supple; Absent lymphadenopathy *Routine Respiratory Exam Respiratory: Present CTA bilaterally *Routine Cardiovascular Exam Cardiovascular: Present RRR *Routine Abdominal Exam Abdominal: Present normoactive bowel sounds, tenderness, distended and firm *Routine Rectal Exam Rectal:: deferred *Routine Genitalia Exam Genitalia:: deferred *Routine Extremities Exam Extremities: Absent cyanosis, clubbing or edema *Routine Skin Exam Skin: Present pallor and warm; Absent rash *Routine Neurological Exam Neurological: Present alert and oriented X3 Assessment and Plan *Assessment and plan (1) Cirrhosis: Status: Acute Category: Medical Code(s): K74.60 - Unspecified cirrhosis of liver (2) Symptomatic anemia: Status: Acute Category: Medical Code(s): D64.9 - Anemia, unspecified (3) ABLA (acute blood loss anemia): Status: Acute Category: Medical Code(s): D62 - Acute posthemorrhagic anemia (4) Low back pain: Status: Acute Qualifiers: Back pain laterality: left Chronicity: unspecified Sciatica presence: unspecified whether sciatica present Qualified Code(s): M54.5 - Low back pain Category: Medical Code(s): M54.50 - Low back pain, unspecified (5) Stage 2 chronic kidney disease: Status: Acute Category: Medical Code(s): N18.2 - Chronic kidney disease, stage 2 (mild) (6) Non-alcoholic cirrhosis: Status: Acute Category: Medical Code(s): K74.60 - Unspecified cirrhosis of liver Plan * Gastrointestinal Bleed (Suspected Diverticular, Possible Variceal): Melena, hemoglobin 6.3 (from 6.7 post-2 units RBCs), abdominal distention, with CT showing hepatic flexure diverticulum contrast blush (possible bleed source), moderate ascites, and cirrhosis, in a patient with prior variceal bleeds requiring banding. * Continue octreotide drip to reduce portal pressure, pending GI evaluation. * Continue IV pantoprazole 40 mg twice daily for ulcer/variceal prophylaxis. * Transfuse 2 additional units packed RBCs as ordered; recheck hemoglobin 4 hours post-transfusion, targeting >7.5. Monitor for signs of fluid overload if more blood is required. IV Lasix if more than 2 units required and signs of overload, i.e. 1 crackles or significant weight gain * Monitor for melena, hematemesis, or hemodynamic instability (e.g., BP <90 systolic, HR >120) every 2 hours; escalate to ICU if unstable. * Consult gastroenterology urgently for endoscopy (EGD) to confirm diverticular vs. variceal source; prepare for banding or sclerotherapy if varices active. * Repeat lactate (2.1) every 6 hours until <2; notify GI if rising or new bleeding. * Restrict oral intake (NPO) pending endoscopy; provide IV fluids (normal saline at 50 mL/hour) to maintain perfusion, avoiding overload (ascites, CHF risk). * Opioid Withdrawal: Pronounced nausea, vomiting, abdominal pain, diaphoresis, pallor post-admission, missing oxycodone 40 mg BID and Percocet Q8 PRN since yesterday, exacerbating distress in a patient with chronic pain. * 0.5 mg IV Dilaudid every 3 as needed for severe pain, monitor for sedation, hold for SBP less than 90 or O2 saturation less than 90% * Monitor for withdrawal symptoms (restlessness, yawning, lacrimation) every 4 hours using COWS scale; offer clonidine 0.1 mg oral every 8 hours if severe (BP permitting). * Monitor for oversedation or respiratory depression every 4 hours, given COPD and age. * Educate patient/family on adhering to pain regimen to prevent withdrawal. * Cirrhosis with Ascites and Splenomegaly: CT showing nodular liver, moderate ascites, splenomegaly (18.7 cm), with thrombocytopenia (platelets 74), low albumin (3.3), and prior variceal bleeds, contributing to distention and bleed risk. * Hold furosemide and spironolactone due to active GI bleed and hypotension risk; consider 20 mg IV furosemide and 100 mg oral spironolactone daily post-bleed stabilization (hemoglobin >8, no melena) if ascites worsens. * Monitor potassium (3.9) and sodium (140) every 6 hours if diuretics restarted; recheck in 12 hours regardless. * Order abdominal paracentesis if ascites causes respiratory compromise (shortness of breath); send fluid for cell count, culture to rule out spontaneous bacterial peritonitis (SBP). * Continue ceftriaxone 1 g IV daily for SBP prophylaxis, given variceal bleed history (AASLD guidelines). * Consult gastroenterology for long-term cirrhosis management * Monitor for encephalopathy (confusion, asterixis) every 4 hours; start lactulose 20 g oral every 8 hours if signs emerge. * Symptomatic Anemia: Hemoglobin 6.3 (from 6.7 post-2 units), pale, weak, fatigued, with shortness of breath, likely from GI bleed, in a patient with chronic anemia. * Complete 2-unit RBC transfusion; recheck hemoglobin 4 hours post- transfusion, targeting >7.5. * Monitor for transfusion reactions (fever, rash) every 2 hours during infusion. * Consider iron studies and ferritin in 24 hours to assess chronic anemia etiology * Consult hematology if hemoglobin falls below 6.0 post-transfusion or no response to 4 units. * Monitor shortness of breath and oxygen saturation every 4 hours; provide oxygen if saturation <92. * Chronic Kidney Disease (CKD Stage 3): Creatinine 1.1, GFR 68, stable, with elevated BUN (20), likely prerenal from hypovolemia (GI bleed), in a patient with CKD. * Continue IV fluids (50 mL/hour saline) posttransfusion to support renal perfusion, stopping if edema worsens or BP rises above 150 systolic. * Monitor urine output every 4 hours, targeting >0.5 mL/kg/hour. * Recheck creatinine and BUN in 12 hours; consult nephrology if creatinine rises above 1.5 or GFR falls below 50. * Avoid nephrotoxic agents (e.g., NSAIDs). * Colonic Thickening (Possible Colitis): CT showing mild thickening of ascending, transverse, descending colon, suggestive of infectious or inflammatory colitis, with diverticulum blush as possible bleed source. * Continue ceftriaxone 1 g IV daily, covering potential infectious colitis (e.g., C. difficile, though no diarrhea). * Monitor for diarrhea, abdominal pain, or worsening distention every 4 hours; repeat CT if pain localizes or fever develops. Consider stool studies * Consult gastroenterology as above for colitis evaluation during EGD or colonoscopy post-bleed stabilization. * Chronic Pain and Opioid Dependence: On oxycodone 40 mg BID, Percocet Q8 PRN, with withdrawal exacerbating symptoms post-admission, in a patient with cirrhosis. * As above under opioid withdrawal. * Monitor pain severity every 4 hours; avoid escalating opioids beyond oxycodone 10 mg PRN to prevent hepatic toxicity. * Consult pain management for non-opioid alternatives (e.g., gabapentin) post-discharge. * Coronary Artery Disease (CAD): No acute chest pain, EKG stable (sinus rhythm, no ST changes), but at risk with anemia and bleed. * Verify home anti-ischemic medications; continue unless bleeding worsens (hemoglobin <6.0). * Monitor for chest pain or ischemic symptoms every 4 hours; repeat EKG if symptoms arise. * Consult cardiology if troponin rises (not checked) or new EKG changes. * Hypertension: Stable BP post-fluids, no acute crisis, but cirrhosis complicates fluid management. * Verify home antihypertensive (e.g., lisinopril); hold if BP <110 systolic due to bleed risk. * Monitor BP every 2 hours, targeting 120?140 systolic to balance perfusion and bleeding. * Recheck electrolytes in 12 hours to monitor sodium (140), potassium (3.9). Additional Orders: * Admit to ICU for GI bleed, anemia, opioid withdrawal management. * Maintain telemetry and pulse oximetry for tachycardia, bleed monitoring. * Check vitals per unit standard, including hemoglobin 1 hour post-transfusion. * Offer ondansetron 4 mg IV every 4 hours as needed for nausea; acetaminophen 500 mg oral every 6 hours as needed (cirrhosis-safe dose).
--- NOTE | 2025-01-14 20:43 | PC.NURSE ---
report called to SERVANDO Flores
[2025-01-14 20:53] LABS: Reflex Lactic Add Lactic Reflex
--- NOTE | 2025-01-14 20:56 | PC.NURSE ---
Patient arrived to[facility] via stretcher from ED at 20:55.
[2025-01-14 21:32] LABS: Lactic Acid Follow Up (RFLX 1) 1.3 mmol/L (0.7-2.1)
[2025-01-14] MEDS: 0.9 % SODIUM CHLORIDE 250 ML 25 ML IV (22:08)
[2025-01-15] VITALS (49 sets, daily range): BP systolic 98–157; BP diastolic 49–95; PULSE 63–99; RESP 13–24; TEMP 36.1–37.1; O2SAT 90–100; BMI 43.6
[2025-01-15 00:16] LABS: Red Blood Count 2.77 M/mm3 (4.60-6.20); White Blood Count 1.5 K/mm3 (4.8-10.8)
[2025-01-15 00:17] LABS: Hematocrit 22.1 % (42.0-52.0); Mean Corpuscular HGB Conc 28.5 g/dL (31.8-35.4); Mean Corpuscular Hemoglobin 22.7 pg (27.0-31.2); Mean Corpuscular Volume 79.8 fl (80-94); Mean Platelet Volume 10.9 fl (7.4-10.4); Platelet Count 56 K/mm3 (142-424); Red Cell Distribution Width-SD 52.5 fL
[2025-01-15 00:18] LABS: Basophils % 0.7 % (0.1-2.0); Eosinophils % 2.7 % (0.1-12.0); Lymphocytes # 0.4 K/mm3 (0.7-4.5); Lymphocytes % 23.3 % (10-50); Monocytes # 0.1 K/mm3 (0.1-1.0); Monocytes % 7.3 % (1.7-9.3); Nucleated Red Blood Cells % 0 %
[2025-01-15 00:19] LABS: Nucleated Red Blood Cells # 0 10^3/uL
[2025-01-15 00:21] LABS: Hemoglobin 6.3 g/dL (14.1-18.0)
[2025-01-15] MEDS: 0.9 % SODIUM CHLORIDE 1000ML 1,000 ML 75 ML IV (00:30)
--- NOTE | 2025-01-15 00:30 | PC.NURSE ---
pt finished with 2 unit of blood at 0013 and is now complaining of lower back pain that goes down his right leg. pt states this is the same pain i always have, i just haven't had any pain meds since yesterday pt also states his belly feels like its getting bigger. CANE CUTTER was called and he came to bedside. pt hemoglobin has went down to 6.4. community living coach is ordering 2 more units of blood. CANE CUTTER also ordered hydromorphone for pain and also promethazine for nausea. mellisa wants nursing staff to monitor pts bp to make sure pt does not become hypotensive. Pt going down for stat cta of the abdomen.
[2025-01-15] MEDS: HYDROMORPHONE 2MG/ML SYRINGE 0.5 MG IV ×6 (00:43→18:59)
[2025-01-15 00:59] LABS: Basophils % 0.6 % (0.1-2.0); Eosinophils % 2.5 % (0.1-12.0); Hematocrit 22.6 % (42.0-52.0); Lymphocytes # 0.4 K/mm3 (0.7-4.5); Lymphocytes % 23.4 % (10-50); Mean Corpuscular HGB Conc 28.3 g/dL (31.8-35.4); Mean Corpuscular Hemoglobin 22.4 pg (27.0-31.2); Mean Platelet Volume 10.6 fl (7.4-10.4); Monocytes # 0.1 K/mm3 (0.1-1.0); Monocytes % 7.6 % (1.7-9.3); Neutrophils % 65.9 % (37.0-80.0); Nucleated Red Blood Cells # 0 10^3/uL; Nucleated Red Blood Cells % 0 %; Red Blood Count 2.86 M/mm3 (4.60-6.20); Red Cell Distribution Width 17.9 % (11.5-17.5); Red Cell Distribution Width-SD 51.9 fL; White Blood Count 1.6 K/mm3 (4.8-10.8)
--- NOTE | 2025-01-15 00:59 | CT_ITS ---
PROCEDURE INFORMATION: Exam: CTA Abdomen and Pelvis With Contrast Exam date and time: 01/15/2025 1:28 AM Age: 64 years old Clinical indication: Abdominal pain; Acute; Additional info: Repeat check for bleed, hgb dropping after 2 units TECHNIQUE: Imaging protocol: Computed tomographic angiography of the abdomen and pelvis with contrast. Exam focused on the arteries. 3D rendering (Not supervised by radiologist): MIP and/or 3D reconstructed images were created by the technologist. Radiation optimization: All CT scans at this facility use at least one of these dose optimization techniques: automated exposure control; mA and/or kV adjustment per patient size (includes targeted exams where dose is matched to clinical indication); or iterative reconstruction. Contrast material: ISOVUE; Contrast volume: 80 ml; Contrast route: INTRAVENOUS (IV); COMPARISON: CT ANGIO ABD/PEL - GI BLEED 14/01/2025 18:02 FINDINGS: Lungs: Minimal bibasilar atelectasis. Aorta: No aortic aneurysm. No aortic dissection. Celiac trunk and mesenteric arteries: No occlusion or significant stenosis. Renal arteries: No occlusion or significant stenosis. Right iliac arteries: No occlusion or significant stenosis. Left iliac arteries: No occlusion or significant stenosis. Liver: Hepatic cirrhosis with portal hypertension. Gallbladder and biliary ducts: Gallbladder is absent. Pancreas: Moderate pancreatic atrophy. Nonspecific edema around the pancreas. Spleen: Splenomegaly. Lienorenal shunt. Adrenal glands: Unremarkable. No mass. Kidneys and ureters: Unremarkable. No solid mass. No hydronephrosis. Stomach and bowel: Small duodenal diverticula. Appendix: No evidence of appendicitis. Intraperitoneal space: Mild ascites, which could be related to portal hypertension. Lymph nodes: Unremarkable. No enlarged lymph nodes. Urinary bladder: Concentrated contrast in the urinary bladder. Reproductive: Unremarkable as visualized. Bones/joints: Old right rib fractures. Soft tissues: Unremarkable. IMPRESSION: 1. There is no extravasated contrast in the lumen of bowel to identify the source of GI bleed. 2. Nonspecific edema around the pancreas. Please exclude acute pancreatitis clinically. 3. Hepatic cirrhosis with portal hypertension.
[2025-01-15 01:02] LABS: Hemoglobin 6.4 g/dL (14.1-18.0); Platelet Count 39 K/mm3 (142-424)
[2025-01-15] MEDS: PROMETHAZINE HCL 25MG/ML 1ML VIAL 12.5 MG IV (01:11)
[2025-01-15] MEDS: SODIUM CHLORIDE 0.9% 25ML BAG 25 ML IV (01:11)
--- NOTE | 2025-01-15 01:18 | PC.NURSE ---
Patient left floor with staff for CT at 01:47.
--- NOTE | 2025-01-15 01:40 | PC.NURSE ---
Patient arrived back to floor from CT at 01:39.
[2025-01-15] MEDS: 0.9 % SODIUM CHLORIDE 50 ML VIAL IV (01:42)
[2025-01-15] MEDS: SODIUM CHLORIDE 0.9% 10ML SYR (RAD ONLY) 10 ML IV (01:42)
[2025-01-15] MEDS: IOPAMIDOL-370 (76%);100ML BOTTLE 80 ML IV (01:43)
[2025-01-15] MEDS: 0.9 % SODIUM CHLORIDE 250 ML 25 ML IV ×2 (02:30→04:25)
--- NOTE | 2025-01-15 04:00 | PC.NURSE ---
obtained pt weight and pt went from 307.2 lbs to 311.8 lbs. manager surgical was notified and he ordered 40mg of lasix iv. pt had just finished up 3 unit of blood. pt has audible wheezing now and crackles on auscultation.
[2025-01-15] MEDS: OCTREOTIDE ACETATE 500 MCG in 0.9 % SODIUM CHLORIDE 250 ML 25.5 MCG IV (04:42)
[2025-01-15] MEDS: FUROSEMIDE 40MG/4ML VIAL 40 MG IV (04:50)
[2025-01-15] MEDS: ONDANSETRON 4MG/2ML VIAL 4 MG IV ×2 (05:20→17:03)
[2025-01-15 06:09] LABS: Basophils % 0.6 % (0.1-2.0); Eosinophils % 1.7 % (0.1-12.0); Hematocrit 24.5 % (42.0-52.0); Lymphocytes # 0.4 K/mm3 (0.7-4.5); Mean Corpuscular HGB Conc 29.8 g/dL (31.8-35.4); Mean Corpuscular Hemoglobin 23.8 pg (27.0-31.2); Mean Corpuscular Volume 79.8 fl (80-94); Mean Platelet Volume 11.9 fl (7.4-10.4); Monocytes # 0.2 K/mm3 (0.1-1.0); Monocytes % 8.6 % (1.7-9.3); Neutrophils # 1.2 K/mm3 (1.8-7.8); Neutrophils % 68.5 % (37.0-80.0); Nucleated Red Blood Cells # 0 10^3/uL; Nucleated Red Blood Cells % 0 %; Platelet Count 60 K/mm3 (142-424); Red Blood Count 3.07 M/mm3 (4.60-6.20); Red Cell Distribution Width 17.9 % (11.5-17.5); Red Cell Distribution Width-SD 52.2 fL; White Blood Count 1.8 K/mm3 (4.8-10.8)
[2025-01-15 06:13] LABS: Hemoglobin 7.2 g/dL (14.1-18.0)
[2025-01-15 06:14] LABS: Chloride 106 mmol/L (98-107); Potassium 4.3 mmoL/L (3.5-5.1); Sodium 140 mmol/L (136-145)
[2025-01-15 06:17] LABS: Anion Gap 9.3 mEq/L (5-15); Blood Urea Nitrogen 20 mg/dl (9-20); Calcium 8.1 mg/dl (8.4-10.2); Carbon Dioxide 29 mmol/L (22.0-30.0); Creatinine Clearance Estimated 71 mL/min (50-200); Estimated Glomerular Filt Rate 68 ml/min (>60); GFR (African American) 82 ML/MIN (>60); Glucose 107 mg/dl (74-100); Magnesium 1.7 mg/dl (1.6-2.3); Phosphorous 2.8 mg/dl (2.5-4.5)
--- NOTE | 2025-01-15 06:25 | PC.NURSE ---
Dr. Reynoso at bedside talking with pt. pt will be going down for a scope and may potentially have a colonoscopy also depending on what they find.
--- NOTE | 2025-01-15 06:35 | P.CONS_ITS ---
History of Present Illness *Admission Date: 01/14/25 *History of present illness: Mr. Hendrickson is a 64-year-old gentleman with known PERALTA and cirrhosis who was admitted yesterday with melena and upper GI bleed. 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 He does state that in early October he was transported to [facility] and admitted with a GI bleed and had variceal banding at that time. He had another GI bleed in late October or early November and went to [place] and had endoscopy with Dr. Berto Jones but did not have banding at that time. The patient yesterday had a single melanotic stools. He could hear his heart pounding. He came to the ED. The patient had labs showing hemoglobin 6.7 and hematocrit 24.4. He was resuscitated with fluids and received 2 units of PRBCs. The patient had initial CTA showing nodular liver with cirrhosis and moderate ascites. There was splenomegaly. There was also a blush of contrast close to the hepatic flexure suggestive of a hepatic flexure bleeding diverticulum. Subsequent reading showed moderate portal hypertension with splenomegaly. There was pancreatic atrophy and a duodenal diverticulum. The patient reports no alcohol use. He has lost 20 pounds in the last year. He has had no hematemesis and has had no further bleeding since coming to the ED. He is on octreotide presently. He did have a small bowel follow-through on 12/20/2024 which was normal. Report of MELD score from ED was 8. The patient's platelet count this morning is 60,000 and hemoglobin hematocrit are 7.2 and 24.5. The patient's creatinine is 1.10, AST 47, ALT 27, alkaline phosphatase 131 and albumin 3.3. His total protein is 6.6. His serum sodium was 140. He is negative for hepatitis C and B. The patient had a colonoscopy many years ago. He does state that he has never considered liver transplant and this has never been discussed. I did speak with ED twice last evening and discussed resuscitation, octreotide and management plans. [facility] Disclaimer: The information contained in this section may have been updated after the patient was seen, as this information can be updated by other users. Medical History (Updated 01/15/25 @ 06:44 by Toni Reynoso II, MD) Chronic anemia CKD (chronic kidney disease) Esophageal varices GI (gastrointestinal bleed) History of gastroesophageal reflux (GERD) Cirrhosis Social History Smoking Status: Never smoker alcohol intake: never current occupational status: disabled Travel in the last 8 weeks: None Have you lived/traveled outside US in past 30 days?: No Contact w/someone who lives/traveled outside US past 30 days?: No Exposure to someone with infectious disease in past 14 days?: No Do you have a fever (greater than 100.4 F or 38 C)?: No Have you tested positive for COVID-19: No Exposed to someone with COVID-19 in past 14 days?: No Do you have a sore throat?: No Do you have a cough?: No Do you have any weakness?: No Do you have any diarrhea?: No Are you experiencing any unusual bleeding?: No Do you have any muscle aches/pain?: No Do you have any abdominal pain?: No Are you experiencing loss of taste or smell?: No Meds Home Medications and Allergies Home Medications ?Medication ?Instructions ?Recorded ?Confirmed ?Type allopurinol 300 mg tablet 300 mg PO DAILY gout 03/27/18 01/14/25 History amlodipine 10 mg tablet (Norvasc) 10 mg PO DAILY htn 03/27/18 01/14/25 History buspirone 15 mg tablet 15 mg PO BID Anxiety 03/27/18 01/14/25 History carvedilol 25 mg tablet 25 mg PO BID htn 03/27/18 01/14/25 History colchicine 0.6 mg tablet (Colcrys) 0.6 mg PO DAILY gout 03/27/18 01/14/25 History ferrous sulfate 325 mg (65 mg 325 mg PO DAILY Supplement 03/27/18 01/14/25 History iron) capsule,extended release (iron ER) gabapentin 300 mg capsule 300 mg PO TID Pain 03/27/18 01/14/25 History oxycodone 20 mg tablet 40 mg PO BID Pain 03/27/18 01/14/25 History oxycodone-acetaminophen 10 mg-325 1 ea PO Q8HP PRN pain 03/27/18 01/14/25 History mg tablet pantoprazole 40 mg tablet,delayed 40 mg PO DAILY GERD 03/27/18 01/14/25 History release sertraline 100 mg tablet (Zoloft) 200 mg PO DAILY Depression 03/27/18 01/14/25 History spironolactone 50 mg tablet 50 mg PO DAILY Fluid 03/27/18 01/14/25 History tizanidine 4 mg capsule (Zanaflex) 4 mg PO NEEDED PRN spasms 03/27/18 01/14/25 History ondansetron 4 mg disintegrating 4 mg PO Q4H PRN Nausea 07/02/19 01/14/25 History tablet New Prescriptions to Start Prescriptions: Allergies Allergy/AdvReac Type Severity Reaction Status Date / Time No Known Allergies Allergy Verified 01/14/25 21:24 Exam (Inpt) Vital signs and Labs for Last 24 Hours: Temp Pulse Resp BP Pulse Ox O2 Del Method O2 Flow Rate 98.3 F 68 16 131/77 98 Nasal Cannula 2 01/15/25 06:20 01/15/25 06:20 01/15/25 06:20 01/15/25 06:20 01/15/25 06:20 01/15/25 06:00 01/15/25 06:00 Laboratory Results - last 24 hr 01/14/25 16:40: WBC 2.1 L, RBC 3.05 L, Hgb 6.7 L*, Hct 24.4 L, MCV 80.0, MCH 22.0 L, MCHC 27.5 L, RDW 18.6 H, Plt Count 74 L, MPV 11.0 H, Neut % (Auto) 70.5, Lymph % (Auto) 18.4, Trego % (Auto) 8.2, Eos % (Auto) 1.9, Baso % (Auto) 0.5, N eut # (Auto) 1.5 L, Lymph # (Auto) 0.4 L, Trego # (Auto) 0.2, Eos # (Auto) 0.0, Baso # (Auto) 0.0, PT 12.2, INR 1.10, APTT 23.9, Sodium 140, Potassium 3.9, Chloride 104, Carbon Dioxide 28, Anion Gap 11.9, BUN 20, Creatinine 1.10, Estimated Creat Clear 73, Estimated GFR 68, Est GFR ( Amer) 82, Glucose 110 H, Calcium 8.5, Total Bilirubin 0.7, AST 47, ALT 27, Alkaline Phosphatase 131 H, Total Protein 6.6, Albumin 3.3 L, Globulin 3.3 H, Albumin/Globulin Ratio 1.0 L, Lipase 68 01/14/25 16:43: HCV Ab GHAZAL w/Rflx PCR Qn Negative 01/14/25 16:46: VBG pH 7.42 H, VBG pCO2 42.7, VBG pO2 42.2 H, VBG HCO3 26.8, VBG Total CO2 28.1 H, VBG O2 Saturation 75.5 H, VBG Base Excess 2.3, VBG Lactic Acid 2.5 H 01/14/25 16:52: Lactate 2.1, Blood Type O Positive, Antibody Screen Negative, Crossmatch (AHG) See Detail 01/14/25 21:13: Lactate 1.3 01/14/25 23:59: WBC 1.5 L* D, RBC 2.77 L, Hgb 6.3 L*, Hct 22.1 L, MCV 79.8 L, M CH 22.7 L, MCHC 28.5 L, RDW 18.0 H, Plt Count 56 L, MPV 10.9 H, Neut % (Auto) 66.0, Lymph % (Auto) 23.3, Trego % (Auto) 7.3, Eos % (Auto) 2.7, Baso % (Auto) 0.7, Neut # (Auto) 1.0 L, Lymph # (Auto) 0.4 L, Trego # (Auto) 0.1, Eos # (Auto) 0.0, Baso # (Auto) 0.0 01/15/25 00:47: WBC 1.6 L*, RBC 2.86 L, Hgb 6.4 L*, Hct 22.6 L, MCV 79.0 L, MCH 22.4 L, MCHC 28.3 L, RDW 17.9 H, Plt Count 39 L* D, MPV 10.6 H, Neut % (Auto) 65.9, Lymph % (Auto) 23.4, Trego % (Auto) 7.6, Eos % (Auto) 2.5, Baso % (Auto) 0.6, Neut # (Auto) 1.0 L, Lymph # (Auto) 0.4 L, Trego # (Auto) 0.1, Eos # (Auto) 0.0, Baso # (Auto) 0.0 01/15/25 05:25: WBC 1.8 L*, RBC 3.07 L, Hgb 7.2 L D, Hct 24.5 L, MCV 79.8 L, MCH 23.8 L, MCHC 29.8 L, RDW 17.9 H, Plt Count 60 L D, MPV 11.9 H, Neut % (Auto) 68.5, Lymph % (Auto) 20.0, Trego % (Auto) 8.6, Eos % (Auto) 1.7, Baso % (Auto) 0.6, Neut # (Auto) 1.2 L, Lymph # (Auto) 0.4 L, Trego # (Auto) 0.2, Eos # (Auto) 0.0, Baso # (Auto) 0.0, Sodium 140, Potassium 4.3, Chloride 106, Carbon Dioxide 29, Anion Gap 9.3, BUN 20, Creatinine 1.10, Estimated Creat Clear 71, Estimated GFR 68, Est GFR ( Amer) 82, Glucose 107 H, Calcium 8.1 L, Phosphorus 2.8, Magnesium 1.7 I & O for Labs for Last 24 Hours: Intake & Output 01/12/25 01/13/25 01/14/25 01/15/25 23:59 23:59 23:59 23:59 Intake Total 250 / 362 612 / 612 Output Total 1500 / 1500 Balance 250 / 362 -888 / -888 Weight 307 lb 3.2 oz 311 lb 12.8 oz GI: Present distention Comments:: Normoactive bowel sounds, distention with ascites fluid wave and ballotable liver. Spleen tip palpable, no rebound or guarding, no masses Results Labs 01/15/25 05:25 01/15/25 05:25 Labs: Laboratory Results - last 24 hr 01/14/25 16:40: WBC 2.1 L, RBC 3.05 L, Hgb 6.7 L*, Hct 24.4 L, MCV 80.0, MCH 22.0 L, MCHC 27.5 L, RDW 18.6 H, Plt Count 74 L, MPV 11.0 H, Neut % (Auto) 70.5, Lymph % (Auto) 18.4, Trego % (Auto) 8.2, Eos % (Auto) 1.9, Baso % (Auto) 0.5, N eut # (Auto) 1.5 L, Lymph # (Auto) 0.4 L, Trego # (Auto) 0.2, Eos # (Auto) 0.0, Baso # (Auto) 0.0, PT 12.2, INR 1.10, APTT 23.9, Sodium 140, Potassium 3.9, Chloride 104, Carbon Dioxide 28, Anion Gap 11.9, BUN 20, Creatinine 1.10, Estimated Creat Clear 73, Estimated GFR 68, Est GFR ( Amer) 82, Glucose 110 H, Calcium 8.5, Total Bilirubin 0.7, AST 47, ALT 27, Alkaline Phosphatase 131 H, Total Protein 6.6, Albumin 3.3 L, Globulin 3.3 H, Albumin/Globulin Ratio 1.0 L, Lipase 68 01/14/25 16:43: HCV Ab GHAZAL w/Rflx PCR Qn Negative 01/14/25 16:46: VBG pH 7.42 H, VBG pCO2 42.7, VBG pO2 42.2 H, VBG HCO3 26.8, VBG Total CO2 28.1 H, VBG O2 Saturation 75.5 H, VBG Base Excess 2.3, VBG Lactic Acid 2.5 H 01/14/25 16:52: Lactate 2.1, Blood Type O Positive, Antibody Screen Negative, Crossmatch (AHG) See Detail 01/14/25 21:13: Lactate 1.3 01/14/25 23:59: WBC 1.5 L* D, RBC 2.77 L, Hgb 6.3 L*, Hct 22.1 L, MCV 79.8 L, M CH 22.7 L, MCHC 28.5 L, RDW 18.0 H, Plt Count 56 L, MPV 10.9 H, Neut % (Auto) 66.0, Lymph % (Auto) 23.3, Trego % (Auto) 7.3, Eos % (Auto) 2.7, Baso % (Auto) 0.7, Neut # (Auto) 1.0 L, Lymph # (Auto) 0.4 L, Trego # (Auto) 0.1, Eos # (Auto) 0.0, Baso # (Auto) 0.0 01/15/25 00:47: WBC 1.6 L*, RBC 2.86 L, Hgb 6.4 L*, Hct 22.6 L, MCV 79.0 L, MCH 22.4 L, MCHC 28.3 L, RDW 17.9 H, Plt Count 39 L* D, MPV 10.6 H, Neut % (Auto) 65.9, Lymph % (Auto) 23.4, Trego % (Auto) 7.6, Eos % (Auto) 2.5, Baso % (Auto) 0.6, Neut # (Auto) 1.0 L, Lymph # (Auto) 0.4 L, Trego # (Auto) 0.1, Eos # (Auto) 0.0, Baso # (Auto) 0.0 01/15/25 05:25: WBC 1.8 L*, RBC 3.07 L, Hgb 7.2 L D, Hct 24.5 L, MCV 79.8 L, MCH 23.8 L, MCHC 29.8 L, RDW 17.9 H, Plt Count 60 L D, MPV 11.9 H, Neut % (Auto) 68.5, Lymph % (Auto) 20.0, Trego % (Auto) 8.6, Eos % (Auto) 1.7, Baso % (Auto) 0.6, Neut # (Auto) 1.2 L, Lymph # (Auto) 0.4 L, Trego # (Auto) 0.2, Eos # (Auto) 0.0, Baso # (Auto) 0.0, Sodium 140, Potassium 4.3, Chloride 106, Carbon Dioxide 29, Anion Gap 9.3, BUN 20, Creatinine 1.10, Estimated Creat Clear 71, Estimated GFR 68, Est GFR ( Amer) 82, Glucose 107 H, Calcium 8.1 L, Phosphorus 2.8, Magnesium 1.7 Assessment and Plan *Assessment and plan (1) Decompensated cirrhosis: Status: Acute Category: Medical Code(s): K72.90 - Hepatic failure, unspecified without coma; K74.60 - Unspecified cirrhosis of liver (2) Melena: Status: Acute Category: Medical Code(s): K92.1 - Melena (3) Portal hypertension: Status: Acute Category: Medical Code(s): K76.6 - Portal hypertension (4) Gastric antral vascular ectasia (watermelon stomach): Status: Acute Category: Medical Code(s): K31.819 - Angiodysplasia of stomach and duodenum without bleeding (5) PERALTA (nonalcoholic steatohepatitis): Status: Acute Category: Medical Code(s): K75.81 - Nonalcoholic steatohepatitis (PERALTA) Plan 1. Melena with presumptive upper GI bleed. CAT scan showed blush at hepatic flexure but with history, I do feel that this is upper GI bleed. He also mentions watermelon stomach which is GAVE. This could be the etiology of his upper GI bleed. We will plan EGD today. The patient does have ascites and the 3-year mortality rate is approximately 50%. With refractory ascites the 1 year survival rate is less than 50%. The patient has had no discussion or advice on liver transplantation. We did discuss this today. Initially he said that he was not interested but when we started talking about mortality and decompensation, he did particularly seem to want to at least entertain this. I do feel that after discharge, he should be sent to transplant center for evaluation.
[2025-01-15] MEDS: CEFTRIAXONE 1 GM 1 GM in 0.9 % SODIUM CHLORIDE 50 ML IV (06:41)
[2025-01-15 06:52] LABS: Amylase 37 U/L (30-110); Lipase 36 U/L (23-300)
[2025-01-15 07:47] LABS: Basophils % 0.6 % (0.1-2.0); Eosinophils % 1.7 % (0.1-12.0); Hematocrit 25.4 % (42.0-52.0); Hemoglobin 7.5 g/dL (14.1-18.0); Lymphocytes # 0.4 K/mm3 (0.7-4.5); Lymphocytes % 20.3 % (10-50); Mean Corpuscular HGB Conc 29.5 g/dL (31.8-35.4); Mean Corpuscular Hemoglobin 23.7 pg (27.0-31.2); Mean Corpuscular Volume 80.1 fl (80-94); Mean Platelet Volume 11.1 fl (7.4-10.4); Monocytes # 0.1 K/mm3 (0.1-1.0); Monocytes % 6.8 % (1.7-9.3); Neutrophils # 1.3 K/mm3 (1.8-7.8); Neutrophils % 70.6 % (37.0-80.0); Nucleated Red Blood Cells # 0 10^3/uL; Nucleated Red Blood Cells % 0 %; Platelet Count 57 K/mm3 (142-424); Red Blood Count 3.17 M/mm3 (4.60-6.20); White Blood Count 1.8 K/mm3 (4.8-10.8)
--- NOTE | 2025-01-15 07:53 | HMH.PHAINT1 ---
Pharmacy Intervention Comments: MEDICATION RECONCILIATION COMPLETED ON PATIENT USING EXTERNAL FILL HISTORY FROM PHARMACY. -ASHKAN LEDESMA, ROSAMARIAD
[2025-01-15] MEDS: SODIUM CHLORIDE 0.9% 10ML VIAL 10 ML IV ×2 (10:37→20:12)
[2025-01-15] MEDS: PANTOPRAZOLE 40MG VIAL 40 MG IV ×2 (10:38→20:12)
[2025-01-15] MEDS: FUROSEMIDE 100MG/10ML VIAL 80 MG IV (11:51)
--- NOTE | 2025-01-15 12:10 | PC.NURSE ---
At start of shift pt was on vapotherm 25/50, o2 sats at 94 with orders to wean o2 as tolerated. pt placed on 4lpm then ambulated with PT. when placed back on monitor pt was 91%. pt o2 sats on 4lpm are currently 93-94 % ([id number])
--- NOTE | 2025-01-15 12:16 | PC.NURSE ---
0710 at start of shift pt o2 sats noted to be 97-100% on 2.5 lpm/nc. 0915 pt decreased to 1lpm, sats maintained low to mid 90's. 1000 pt placed on room air 1020 O2was noted to drop to 89-90%. pt placed back on 1lpm. 1210 pt o2 noted to drop to 88-90 on 1lpm. upon entering room pt was noted to be breathing from his mouth, o2 increased to 2lpm
--- NOTE | 2025-01-15 13:09 | PC.NURSE ---
Addendum entered by Luh Means RN 01/15/25 17:56: 1507 pt returned to unit with Han Original Note: 1302 pt left floor with OR staff for egd
--- NOTE | 2025-01-15 13:26 | P.PNANES_ITS ---
[facility] Disclaimer: The information contained in this section may have been updated after the patient was seen, as this information can be updated by other users. Medical History (Updated 01/15/25 @ 06:44 by Toni Reynoso II, MD) Chronic anemia CKD (chronic kidney disease) Esophageal varices GI (gastrointestinal bleed) History of gastroesophageal reflux (GERD) Cirrhosis Social History Smoking Status: Never smoker alcohol intake: never substance use type: denies use current occupational status: disabled Travel in the last 8 weeks: None [facility] Anesthesia Checklist Patient Identification Patient Identification: Arm Band and Family Structural Data Admitted From: Inpatient Planned Operative Procedure/s: Colonoscopy Consent for Planned Operative Procedure(s) Verified: Yes Verified Documents: Surgical Consent and History and Physical NPO Status Verified Time NPO: 00:00 Additional verifications Patient : No Anesthesia Reactions: No Hx Blood Transfusions: No Blood Transfusion Reaction: No Cephalosporin Allergy: No Previous Colonoscopy: Yes Airway Assessment Mallampati Score:: Class I C-Spine Mobility Assessed: Yes TMJ Mobility Assessed: Yes Dentition: Edentulous Neurological Assessment Level of Consciousness: Awake, Alert, Appropriate and Follows Commands Hx Seizures: No Numbness or tingling in extremities: No Anesthesia Plan Anesthesia Risk discussed: Yes ASA Class: II Anesthesia Type: MAC Preoperative Comments Pre-Operative Comments: Stage 3 renal failure. Bloody stools.
--- NOTE | 2025-01-15 14:28 | HMH.PROCNOTE ---
[facility] Procedure Note Date: 01/15/25 Time: 14:39 Procedure Note:: Upper Endoscopy Procedure Report: Esophagogastroduodenoscopy with APC ablation Endoscopost: Toni Reynoso II, MD Referring Physician: López Alicea MD, [address] [facility] , [facility], [place] [address] Date of Procedure: January 15, 2025 Equipment: Olympus GIF 190 standard upper endoscope Sedation: MAC sedation Indications: Mr. Hendrickson is a 64-year-old gentleman with Rivera and cirrhosis who was admitted yesterday with melena and upper GI bleed. He has had several endoscopies over the last few years and does have a history of watermelon stomach (GAVE). He has had ablation of the GAVE in the past. He did have a GI bleed in early October 2024 and was transported to one of the [facility] and was admitted. At that time he had EGD with variceal banding. He had another GI bleed in late October or early November and went to [place] and had endoscopy with Dr. Berto Jones but did not have banding at that time. Yesterday he had a single melanotic stool and felt his heart pounding. He went to the emergency department. His initial labs showed hemoglobin 6.7 and hematocrit 24.4. He received blood transfusions and his hemoglobin hematocrit this morning were 7.2 and 24.5. His meld was calculated at 8 in the ED. He did have a CT angiogram which showed a bleeding blush at the hepatic flexure but he is not having any bright red rectal bleeding or hematochezia. Octreotide was started and the patient is stable and has no signs of bleeding today. He has never considered liver transplant and this has never been discussed with the patient. Procedure: Prior to the procedure, a history and physical exam was performed, and patient's medications and allergies were reviewed. The risks, benefits and alternatives of the sedation and procedure were discussed with the patient. All questions were answered and informed consent was obtained. The patient was brought to the procedure room. Patient identification and proposed procedure were verified by the physician and the nurse. The patient was placed in a left lateral decubitus position and the scope was passed under direct vision. Throughout the procedure, the patient's blood pressure, pulse, and oxygen saturations were monitored continuously. The upper GI endoscopy was accomplished without difficulty. The patient tolerated the procedure well. Findings: The scope was passed directly into the upper esophagus and advanced to the third portion of the duodenum. The post bulbar duodenum and duodenal bulb were normal with normal mucosa and conniventes. The scope was withdrawn through a normal duodenal bulb and pylorus into the stomach. There was evidence of more significant watermelon stomach/GAVE (gastric antral vascular ectasias). All of the visible ectasias/GAVE were ablated using APC (argon plasma coagulation). There was minimal portal hypertensive gastropathy of the body and fundus. Upon retroflexion there was no gastric fundic varices and a very small sliding 1 to 2 cm hiatal hernia. The scope was then withdrawn into the esophagus. There were very faint grade 0?1 esophageal varices without stigmata and the remainder of the esophageal mucosa was normal. Impression: 1. GAVE (gastric antral vascular ectasias or watermelon stomach)?status post APC ablation 2. Minimal portal hypertensive gastropathy 3. Very small grade 0?1 esophageal varices with no gastric varices Plan: The patient's upper GI bleeding is from GAVE. Gastric antral vascular ectasias (GAVE) are ectatic and sacculated blood vessels in the lining of the lower stomach that resemble the stripes of a watermelon. This is often called watermelon stomach and certainly is more common in persons with cirrhosis. Slow gastrointestinal bleeding is common and the most common resulting manifestation is chronic iron deficiency. The argon laser is the preferred treatment which I performed today. I do feel that importantly, there should be some discussion on transplant evaluation. The patient does have moderate ascites. The 3-year mortality with ascites is approximately 50% and with refractory ascites the 1 year survival rate is less than 50%. I do feel that he should be referred to transplant hepatology at the [facility] for consideration. The etiology of his cirrhosis is RIVERA. He does not drink alcohol.
--- NOTE | 2025-01-15 16:48 | P.PN_ITS ---
Subjective *Date: 01/15/25 *Time: 17:12 Interval history: Patient states he is feeling somewhat better today. No further melenic stools. No vomiting, does have some mild nausea. Afebrile. Stable on 2 L oxygen. Taken for EGD today. Medical Exam Vital signs and Labs for Last 24 Hours: Vital Signs Temp Pulse Pulse Resp BP BP Pulse Ox 01/15/25 16:00 97.5 F L 70 16 147/78 H 93 L 01/15/25 15:30 72 94 L 01/15/25 15:03 75 18 126/69 96 01/15/25 15:00 73 151/76 H 96 01/15/25 14:53 77 18 143/61 H 95 01/15/25 14:43 97 F L 80 125/75 95 01/15/25 14:22 01/15/25 13:00 01/15/25 12:00 74 95 01/15/25 12:00 70 01/15/25 12:00 98.4 F 70 13 130/73 90 L 01/15/25 11:52 98.4 F 71 16 135/79 93 L 01/15/25 11:09 01/15/25 11:00 71 13 135/79 91 L 01/15/25 10:00 99 H 18 122/75 93 L 01/15/25 09:40 01/15/25 09:00 72 13 135/70 97 01/15/25 08:00 68 01/15/25 08:00 98.5 F 70 14 128/74 95 01/15/25 07:40 71 98 01/15/25 07:20 98.5 F 18 133/79 95 01/15/25 06:49 76 16 132/49 L 97 01/15/25 06:49 01/15/25 06:20 98.3 F 68 16 131/77 98 01/15/25 06:00 70 14 140/75 98 01/15/25 05:30 98.4 F 70 18 129/82 96 01/15/25 05:15 98.4 F 69 16 128/77 97 01/15/25 05:00 98.5 F 70 16 145/80 H 95 01/15/25 05:00 01/15/25 05:00 98.5 F 80 16 123/76 94 L 01/15/25 04:45 98.5 F 72 16 115/76 97 01/15/25 04:40 98.4 F 71 16 128/83 98 01/15/25 04:35 98.7 F 72 14 131/79 97 01/15/25 04:30 98.5 F 70 16 115/77 97 01/15/25 04:20 98.4 F 72 16 119/84 98 01/15/25 04:05 98.4 F 72 18 124/70 100 01/15/25 04:00 70 01/15/25 04:00 70 98 01/15/25 03:30 98.5 F 70 16 118/66 98 01/15/25 03:15 98.7 F 71 18 125/65 95 01/15/25 03:00 98.4 F 73 18 125/74 94 L 01/15/25 03:00 01/15/25 03:00 98.4 F 73 18 125/74 94 L 01/15/25 02:45 98.2 F 75 18 119/73 94 L 01/15/25 02:40 98.4 F 75 18 125/63 91 L 01/15/25 02:35 98.6 F 75 16 122/68 94 L 01/15/25 02:30 98.6 F 76 16 98/67 L 94 L 01/15/25 02:26 98.4 F 77 18 127/73 91 L 01/15/25 02:00 79 21 122/67 92 L 01/15/25 01:00 01/15/25 01:00 63 24 128/76 92 L 01/15/25 00:13 98.4 F 81 18 157/79 H 96 01/15/25 00:00 77 01/15/25 00:00 98.6 F 81 21 140/95 H 92 L 01/14/25 23:54 75 98 01/14/25 23:25 98.1 F 76 14 131/78 97 01/14/25 23:10 98.2 F 76 18 123/78 97 01/14/25 23:00 98.2 F 74 16 134/74 97 01/14/25 23:00 01/14/25 22:55 98.2 F 74 16 134/74 97 01/14/25 22:40 98.2 F 77 15 130/74 97 01/14/25 22:35 98.6 F 76 16 128/75 96 01/14/25 22:30 98.4 F 76 16 128/75 98 01/14/25 22:25 98.5 F 79 18 125/78 96 01/14/25 22:13 98.5 F 78 18 129/79 97 01/14/25 22:00 79 22 131/71 95 01/14/25 21:23 98.6 F 82 16 150/84 H 98 01/14/25 21:18 78 01/14/25 21:00 01/14/25 20:43 98.1 F 79 16 161/86 H 01/14/25 20:35 98.2 F 75 13 163/92 H 96 01/14/25 20:35 77 16 161/86 H 96 01/14/25 20:30 77 18 163/92 H 96 01/14/25 20:29 80 90 L 01/14/25 20:29 88 L 01/14/25 20:15 77 15 144/83 H 94 L 01/14/25 20:03 77 16 143/77 H 95 01/14/25 20:00 77 16 143/81 H 97 01/14/25 19:55 98.4 F 76 14 143/77 H 94 L 01/14/25 19:44 16 144/81 H 01/14/25 19:40 98.2 F 79 16 144/81 H 95 01/14/25 19:30 79 15 158/86 H 98 01/14/25 19:26 80 15 148/84 H 98 01/14/25 19:25 98.4 F 82 21 148/84 H 98 01/14/25 19:10 79 16 145/75 H 95 01/14/25 19:10 98.4 F 82 16 145/75 H 97 01/14/25 19:06 80 11 L 142/88 H 97 01/14/25 19:05 98.3 F 82 17 142/88 H 99 01/14/25 19:03 83 15 150/78 H 97 01/14/25 19:00 98.6 F 83 18 150/78 H 97 01/14/25 18:59 84 14 152/81 H 97 01/14/25 18:55 98.2 F 83 20 152/81 H 97 01/14/25 18:35 98.4 F 83 18 142/78 H 99 01/14/25 18:34 87 142/78 H 93 L 01/14/25 18:30 86 159/84 H 94 L 01/14/25 17:30 88 93 L 01/14/25 17:01 101 H 133/77 96 O2 Del Method O2 Flow Rate 01/15/25 16:00 Nasal Cannula 3 01/15/25 15:30 Nasal Cannula 3 01/15/25 15:03 Nasal Cannula 3 01/15/25 15:00 Nasal Cannula 3 01/15/25 14:53 Room Air 01/15/25 14:43 Nasal Cannula 3 01/15/25 14:22 Nasal Cannula 5 01/15/25 13:00 Nasal Cannula 2 01/15/25 12:00 Nasal Cannula 2 01/15/25 12:00 01/15/25 12:00 Nasal Cannula 1 01/15/25 11:52 Room Air 1 01/15/25 11:09 Room Air 01/15/25 11:00 Room Air 01/15/25 10:00 Nasal Cannula 2.5 01/15/25 09:40 Nasal Cannula 2.5 01/15/25 09:00 Nasal Cannula 2.5 01/15/25 08:00 01/15/25 08:00 Nasal Cannula 2.5 01/15/25 07:40 Nasal Cannula 2.5 01/15/25 07:20 01/15/25 06:49 Nasal Cannula 2 01/15/25 06:49 Nasal Cannula 2 01/15/25 06:20 01/15/25 06:00 Nasal Cannula 2 01/15/25 05:30 01/15/25 05:15 01/15/25 05:00 Nasal Cannula 2 01/15/25 05:00 Nasal Cannula 2 01/15/25 05:00 01/15/25 04:45 01/15/25 04:40 01/15/25 04:35 01/15/25 04:30 01/15/25 04:20 01/15/25 04:05 01/15/25 04:00 01/15/25 04:00 Nasal Cannula 2 01/15/25 03:30 01/15/25 03:15 01/15/25 03:00 Nasal Cannula 2 01/15/25 03:00 Nasal Cannula 2 01/15/25 03:00 01/15/25 02:45 01/15/25 02:40 01/15/25 02:35 01/15/25 02:30 01/15/25 02:26 01/15/25 02:00 Nasal Cannula 4 01/15/25 01:00 Nasal Cannula 2 01/15/25 01:00 Nasal Cannula 2 01/15/25 00:13 01/15/25 00:00 01/15/25 00:00 Room Air 01/14/25 23:54 Nasal Cannula 2 01/14/25 23:25 01/14/25 23:10 01/14/25 23:00 Nasal Cannula 2 01/14/25 23:00 Nasal Cannula 2 01/14/25 22:55 01/14/25 22:40 01/14/25 22:35 01/14/25 22:30 01/14/25 22:25 01/14/25 22:13 01/14/25 22:00 Room Air 01/14/25 21:23 Room Air 01/14/25 21:18 01/14/25 21:00 Nasal Cannula 2 01/14/25 20:43 Room Air 01/14/25 20:35 01/14/25 20:35 01/14/25 20:30 01/14/25 20:29 Nasal Cannula 2 01/14/25 20:29 Room Air 01/14/25 20:15 01/14/25 20:03 01/14/25 20:00 01/14/25 19:55 01/14/25 19:44 01/14/25 19:40 01/14/25 19:30 01/14/25 19:26 01/14/25 19:25 01/14/25 19:10 01/14/25 19:10 01/14/25 19:06 01/14/25 19:05 01/14/25 19:03 01/14/25 19:00 01/14/25 18:59 01/14/25 18:55 01/14/25 18:35 01/14/25 18:34 01/14/25 18:30 01/14/25 17:30 01/14/25 17:01 Intake and Output 01/15/25 01/15/25 01/15/25 07:59 15:59 23:59 Intake Total 1482 / 1763 281 / 1763 Output Total 1900 / 4395 1995 / 4395 500 / 43 Balance -418 / -2632 -1714 / -2632 -500 / -2632 Intake: Intake, Total IV Amount 982 / 1263 281 / 1263 0.9 % Sodium Chloride 1000ML 1, 500 / 692 192 / 692 000 ml @ 75 mls/hr IV .[id number] [facility] Rx#:[id number] 0.9 % Sodium Chloride 250 ml @ 285 / 285 25 mls/hr IV .Q10H [facility] Rx#: [id number] Octreotide Acetate 500 mcg In 0 197 / 286 89 / 286 .9 % Sodium Chloride 250 ml @ 50 MCG/HR 25.5 mls/hr IV .Q10H [facility] Rx#:[id number] Intake (Blood Product) Amt 500 / 500 Red Blood Cells Unit 250 / 250 [id number] Red Blood Cells Unit 0 / 0 [id number] Red Blood Cells Unit 250 / 250 [id number] Output: Output, Urine Amount 1899 Other: Number of Voids 1 Number of Unmeasured Voids 0 Weight 141.43 kg Patient Weight 01/15/25 23:59 Weight 141.43 kg Laboratory Results - last 24 hr 01/14/25 16:40: WBC 2.1 L, RBC 3.05 L, Hgb 6.7 L*, Hct 24.4 L, MCV 80.0, MCH 22.0 L, MCHC 27.5 L, RDW 18.6 H, Plt Count 74 L, MPV 11.0 H, Neut % (Auto) 70.5, Lymph % (Auto) 18.4, [place] % (Auto) 8.2, Eos % (Auto) 1.9, Baso % (Auto) 0.5, Neut # (Auto) 1.5 L, Lymph # (Auto) 0.4 L, [place] # (Auto) 0.2, Eos # (Auto) 0.0, Baso # (Auto) 0.0, PT 12.2, INR 1.10, APTT 23.9, Sodium 140, Potassium 3.9, Chloride 104, Carbon Dioxide 28, Anion Gap 11.9, BUN 20, Creatinine 1.10, Estimated Creat Clear 73, Estimated GFR 68, Est GFR ( Amer) 82, Glucose 110 H, Calcium 8.5, Total Bilirubin 0.7, AST 47, ALT 27, Alkaline Phosphatase 131 H, Total Protein 6.6, Albumin 3.3 L, Globulin 3.3 H, Albumin/Globulin Ratio 1.0 L, Lipase 68 01/14/25 16:43: HCV Ab GHAZAL w/Rflx PCR Qn Negative 01/14/25 16:46: VBG pH 7.42 H, VBG pCO2 42.7, VBG pO2 42.2 H, VBG HCO3 26.8, VBG Total CO2 28.1 H, VBG O2 Saturation 75.5 H, VBG Base Excess 2.3, VBG Lactic Acid 2.5 H 01/14/25 16:52: Lactate 2.1, Blood Type O Positive, Antibody Screen Negative, Crossmatch ([facility]) See Detail 01/14/25 21:13: Lactate 1.3 01/14/25 23:59: WBC 1.5 L* D, RBC 2.77 L, Hgb 6.3 L*, Hct 22.1 L, MCV 79.8 L, MCH 22.7 L, MCHC 28.5 L, RDW 18.0 H, Plt Count 56 L, MPV 10.9 H, Neut % (Auto) 66.0, Lymph % (Auto) 23.3, [place] % (Auto) 7.3, Eos % (Auto) 2.7, Baso % (Auto) 0.7, Neut # (Auto) 1.0 L, Lymph # (Auto) 0.4 L, [place] # (Auto) 0.1, Eos # (Auto) 0.0, Baso # (Auto) 0.0 01/15/25 00:47: WBC 1.6 L*, RBC 2.86 L, Hgb 6.4 L*, Hct 22.6 L, MCV 79.0 L, MCH 22.4 L, MCHC 28.3 L, RDW 17.9 H, Plt Count 39 L* D, MPV 10.6 H, Neut % (Auto) 65.9, Lymph % (Auto) 23.4, [place] % (Auto) 7.6, Eos % (Auto) 2.5, Baso % (Auto) 0.6, Neut # (Auto) 1.0 L, Lymph # (Auto) 0.4 L, [place] # (Auto) 0.1, Eos # (Auto) 0.0, Baso # (Auto) 0.0 01/15/25 05:25: WBC 1.8 L*, RBC 3.07 L, Hgb 7.2 L D, Hct 24.5 L, MCV 79.8 L, MCH 23.8 L, MCHC 29.8 L, RDW 17.9 H, Plt Count 60 L D, MPV 11.9 H, Neut % (Auto) 68.5, Lymph % (Auto) 20.0, [place] % (Auto) 8.6, Eos % (Auto) 1.7, Baso % (Auto) 0.6, Neut # (Auto) 1.2 L, Lymph # (Auto) 0.4 L, [place] # (Auto) 0.2, Eos # (Auto) 0.0, Baso # (Auto) 0.0, Sodium 140, Potassium 4.3, Chloride 106, Carbon Dioxide 29, Anion Gap 9.3, BUN 20, Creatinine 1.10, Estimated Creat Clear 71, Estimated GFR 68, Est GFR ( Amer) 82, Glucose 107 H, Calcium 8.1 L, Phosphorus 2.8, Magnesium 1.7, Amylase 37, Lipase 36 01/15/25 07:30: WBC 1.8 L*, RBC 3.17 L, Hgb 7.5 L, Hct 25.4 L, MCV 80.1, MCH 23.7 L, MCHC 29.5 L, RDW 18.0 H, Plt Count 57 L, MPV 11.1 H, Neut % (Auto) 70.6, Lymph % (Auto) 20.3, [place] % (Auto) 6.8, Eos % (Auto) 1.7, Baso % (Auto) 0.6, Neut # (Auto) 1.3 L, Lymph # (Auto) 0.4 L, [place] # (Auto) 0.1, Eos # (Auto) 0.0, Baso # (Auto) 0.0 I & O for Labs for Last 24 Hours: Intake & Output 01/12/25 01/13/25 01/14/25 01/15/25 23:59 23:59 23:59 23:59 Intake Total 250 / 362 1763 / 1763 Output Total 4395 / 4395 Balance 250 / 362 -2632 / -2632 Weight 139.344 kg 141.43 kg Constitutional: Present mild distress, morbidly obese, chronically ill appearing and cooperative Head: Present atraumatic and normocephalic ENT: Present normal exam Neck: Present normal inspection Respiratory: Present crackles (Lower lung field) and normal respiratory effort; Absent respiratory distress, rhonchi or wheezes Cardiac: Present Reg Rate and Rhythm GI: Present soft, distention, tenderness (Epigastric) and normal bowel sounds Extremities: Present normal inspection and full ROM Skin: Present intact; Absent erythema Neuro: Present Grossly Intact, alert, awake, oriented x 3 and moves all extremities Assessment and Plan *Assessment and plan (1) Decompensated cirrhosis: Status: Acute Category: Medical Code(s): K72.90 - Hepatic failure, unspecified without coma; K74.60 - Unspecified cirrhosis of liver (2) Melena: Status: Acute Category: Medical Code(s): K92.1 - Melena (3) Symptomatic anemia: Status: Acute Category: Medical Code(s): D64.9 - Anemia, unspecified (4) Gastric antral vascular ectasia (watermelon stomach): Status: Acute Category: Medical Code(s): K31.819 - Angiodysplasia of stomach and duodenum without bleeding (5) ABLA (acute blood loss anemia): Status: Acute Category: Medical Code(s): D62 - Acute posthemorrhagic anemia (6) Low back pain: Status: Acute Qualifiers: Back pain laterality: left Chronicity: unspecified Sciatica presence: unspecified whether sciatica present Qualified Code(s): M54.5 - Low back pain Category: Medical Code(s): M54.50 - Low back pain, unspecified (7) Stage 2 chronic kidney disease: Status: Acute Category: Medical Code(s): N18.2 - Chronic kidney disease, stage 2 (mild) (8) Non-alcoholic cirrhosis: Status: Acute Category: Medical Code(s): K74.60 - Unspecified cirrhosis of liver (9) PERALTA (nonalcoholic steatohepatitis): Status: Acute Category: Medical Code(s): K75.81 - Nonalcoholic steatohepatitis (PERALTA) (10) Portal hypertension: Status: Acute Category: Medical Code(s): K76.6 - Portal hypertension (11) Morbid obesity: Status: Acute Category: Medical Code(s): E66.01 - Morbid (severe) obesity due to excess calories Plan 64-year male with history of cirrhosis. Presented with concern for GI bleed. Transfused overnight. Taken for EGD this morning. GI consulted and assisting with care. Continues to require inpatient management. Acute worsening of chronic condition. Problems addressed as follows: Upper GI bleed Decompensated cirrhosis Gastric antral vascular ectasia Acute on chronic blood loss anemia - Discussed case with GI, taken for EGD today. Found to have GAVE. Ablation performed. No active bleeding. Varices small, no banding necessary. Recommended stopping octreotide drip. Monitor for stability overnight. Continu e pantoprazole. - No further melenic stools. Hemoglobin stable after second round of transfusion. Hemoglobin 7.5 this morning. Monitor every 12 hours for stability, transfusion threshold hemoglobin less than 7 - Continue IV pantoprazole 40 mg twice daily - Can use ceftriaxone 1 g daily IV for GI bleed empiric coverage/prophylaxis - Continue spironolactone 100 mg daily for ascites Chronic back pain Chronic opiate use -Continue OxyContin extended release 40 mg twice daily. Continue oxycodone 10 mg for breakthrough every 6-8 hours. Monitor for toxicity due to high dose of opiates -Resume gabapentin 800 mg 3 times a day per home regimen, and tizanidine 4 mg twice daily as needed for muscle spasm Volume overload: Lasix 80 mg IV daily due to volume overload and edema - Wean oxygen as needed, supplemental oxygen currently at 1 L. Goal sats greater 90% BPH: Continue tamsulosin 0.4 mg nightly Mood disorder: Resume BuSpar 20 mg twice daily, Wellbutrin 150 mg daily, resume olanzapine 5 mg nightly Chronic Kidney Disease (CKD Stage 3): Creatinine 1.1, GFR 68, stable, with elevated BUN (20), likely prerenal from hypovolemia (GI bleed), in a patient with CKD. - repeat labs this morning stable with BUN 20, creatinine 1.1, potassium 4.3, magnesium 1.7. Hold on IV fluids Hypertension: Holding home meds in the setting of diuresis. Will resume in the morning if blood pressure elevated Full code Holding anticoagulation in the setting of GI bleed Regular diet
[2025-01-15] MEDS: SPIRONOLACTONE 25MG TABLET 100 MG PO (17:02)
[2025-01-15 17:18] LABS: Basophils % 0.8 % (0.1-2.0); Eosinophils % 0.8 % (0.1-12.0); Hematocrit 31.2 % (42.0-52.0); Lymphocytes # 0.4 K/mm3 (0.7-4.5); Lymphocytes % 16.5 % (10-50); Mean Corpuscular HGB Conc 29.2 g/dL (31.8-35.4); Mean Corpuscular Hemoglobin 23.5 pg (27.0-31.2); Mean Corpuscular Volume 80.6 fl (80-94); Mean Platelet Volume 9.8 fl (7.4-10.4); Monocytes # 0.2 K/mm3 (0.1-1.0); Monocytes % 8.6 % (1.7-9.3); Neutrophils # 1.8 K/mm3 (1.8-7.8); Neutrophils % 72.9 % (37.0-80.0); Nucleated Red Blood Cells # 0 10^3/uL; Nucleated Red Blood Cells % 0 %; Platelet Count 61 K/mm3 (142-424); Red Blood Count 3.87 M/mm3 (4.60-6.20); Red Cell Distribution Width 18.1 % (11.5-17.5); White Blood Count 2.4 K/mm3 (4.8-10.8)
[2025-01-15 18:08] LABS: Hemoglobin 9.1 g/dL (14.1-18.0)
[2025-01-15] MEDS: GABAPENTIN 800MG TABLET 800 MG PO (20:11)
[2025-01-15] MEDS: BUSPIRONE HCL 10 MG TABLET 20 MG PO (20:12)
[2025-01-15] MEDS: OLANZapine 5 MG ODT TABLET SL (20:12)
[2025-01-15] MEDS: TAMSULOSIN 0.4MG CAPSULE 0.4 MG PO (20:12)
[2025-01-15] MEDS: OXYCODONE 40 MG PO (20:12)
[2025-01-15] MEDS: TIZANIDINE 4 MG 4 EACH PO (20:14)
--- NOTE | 2025-01-15 22:48 | PC.NURSE ---
moved patient and belongings from room 216 to room 211
[2025-01-16] VITALS: BP 145/70; PULSE 60; RESP 19; TEMP 36.7; O2SAT 96
[2025-01-16] MEDS: HYDROMORPHONE 2MG/ML SYRINGE 0.5 MG IV (02:45)
[2025-01-16 04:00] VITALS: BP 119/71; PULSE 60; PULSE 61; RESP 14; TEMP 36.7; O2SAT 92; BMI 43.6
[2025-01-16] MEDS: CEFTRIAXONE 1 GM 1 GM in 0.9 % SODIUM CHLORIDE 50 ML IV (05:21)
[2025-01-16 07:03] LABS: Eosinophils # 0.1 K/mm3 (0.0-0.4); Eosinophils % 3.6 % (0.1-12.0); Hematocrit 28.5 % (42.0-52.0); Hemoglobin 8.3 g/dL (14.1-18.0); Lymphocytes # 0.6 K/mm3 (0.7-4.5); Lymphocytes % 30.1 % (10-50); Mean Corpuscular HGB Conc 29.1 g/dL (31.8-35.4); Mean Corpuscular Hemoglobin 23.6 pg (27.0-31.2); Mean Corpuscular Volume 81.2 fl (80-94); Mean Platelet Volume 12.1 fl (7.4-10.4); Monocytes # 0.2 K/mm3 (0.1-1.0); Monocytes % 7.8 % (1.7-9.3); Neutrophils # 1.1 K/mm3 (1.8-7.8); Neutrophils % 57.5 % (37.0-80.0); Nucleated Red Blood Cells # 0 10^3/uL; Nucleated Red Blood Cells % 0 %; Platelet Count 61 K/mm3 (142-424); Red Blood Count 3.51 M/mm3 (4.60-6.20); Red Cell Distribution Width-SD 52.9 fL; White Blood Count 1.9 K/mm3 (4.8-10.8)
[2025-01-16 07:12] LABS: Chloride 102 mmol/L (98-107)
[2025-01-16 07:13] LABS: Albumin Level 2.9 g/dl (3.5-5.0); Potassium 3.6 mmoL/L (3.5-5.1); Sodium 141 mmol/L (136-145)
[2025-01-16 07:15] LABS: Anion Gap 9.6 mEq/L (5-15); Blood Urea Nitrogen 23 mg/dl (9-20); Carbon Dioxide 33 mmol/L (22.0-30.0); Creatinine Clearance Estimated 65 mL/min (50-200); Estimated Glomerular Filt Rate 61 ml/min (>60); GFR (African American) 74 ML/MIN (>60)
[2025-01-16 07:16] LABS: Alanine Aminotransferase 33 U/L (12-78); Albumin/Globulin Ratio 0.9 (1.1-1.8); Alkaline Phosphatase 110 U/L (38-126); Aspartate Amino Transferase 145 U/L (17-59); Bilirubin,Total 0.7 mg/dl (0.2-1.3); Globulin 3.2 g/dL (1.3-3.2); Glucose 82 mg/dl (74-100); Magnesium 1.8 mg/dl (1.6-2.3); Total Protein,Serum 6.1 g/dl (6.3-8.2)
--- NOTE | 2025-01-16 07:50 | EXP.DC.SUM ---
General Admission date:: 01/14/25 Discharge date: 01/16/25 HPI HPI HPI: Mr. Hendrickson is a 64-year-old gentleman with known PERALTA and cirrhosis who was admitted yesterday with melena and upper GI bleed. 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 He does state that in early October he was transported to [facility] and admitted with a GI bleed and had variceal banding at that time. He had another GI bleed in late October or early November and went to [place] and had endoscopy with Dr. Berto Jones but did not have banding at that time. The patient yesterday had a single melanotic stools. He could hear his heart pounding. He came to the ED. The patient had labs showing hemoglobin 6.7 and hematocrit 24.4. He was resuscitated with fluids and received 2 units of PRBCs. The patient had initial CTA showing nodular liver with cirrhosis and moderate ascites. There was splenomegaly. There was also a blush of contrast close to the hepatic flexure suggestive of a hepatic flexure bleeding diverticulum. Subsequent reading showed moderate portal hypertension with splenomegaly. There was pancreatic atrophy and a duodenal diverticulum. The patient reports no alcohol use. He has lost 20 pounds in the last year. He has had no hematemesis and has had no further bleeding since coming to the ED. He is on octreotide presently. He did have a small bowel follow-through on 12/20/2024 which was normal. Report of MELD score from ED was 8. The patient's platelet count this morning is 60,000 and hemoglobin hematocrit are 7.2 and 24.5. The patient's creatinine is 1.10, AST 47, ALT 27, alkaline phosphatase 131 and albumin 3.3. His total protein is 6.6. His serum sodium was 140. He is negative for hepatitis C and B. The patient had a colonoscopy many years ago. He does state that he has never considered liver transplant and this has never been discussed. I did speak with ED twice last evening and discussed resuscitation, octreotide and management plans. Hospital Course Hospital Course Hospital Course: 64-year male with history of cirrhosis. Presented with concern for GI bleed. Transfused during admission. GI was consulted, was taken for EGD. GAVEs treated with ablation. No significant variceal bleed. Monitored with stable hemoglobin. Tolerating p.o. intake. Stable to discharge home with further management as an outpatient. Problems addressed as follows: Upper GI bleed Decompensated cirrhosis Gastric antral vascular ectasia Acute on chronic blood loss anemia - Discussed case with GI, taken for EGD/. Found to have GAVE. Ablation performed. No active bleeding. Varices small, no banding necessary. Initially on octreotide drip. Stopped after EGD. Will continue pantoprazole. Monitored overnight for stability of hemoglobin and further melenic stools. No further black or melenic stool. Hemoglobin 8.3 on morning of discharge. Still within range of appropriate level of replacement after transfusions. Discontinued antibiotics at discharge. Continue spironolactone 100 mg daily for ascites. Stable to discharge home with further management as an outpatient. Follow-up with GI. Chronic back pain Chronic opiate use -Continue OxyContin extended release 40 mg twice daily. Continue oxycodone 10 mg for breakthrough every 6-8 hours. No signs of toxicity or oversedation. Resumed home gabapentin 800 mg 3 times a day per home regimen, and tizanidine 4 mg twice daily as needed for muscle spasm Volume overload: - Initiated on Lasix 80 mg IV twice daily. Responded well with good diuresis. Continue diuretics at discharge. Able to wean to room air before day of discharge. BPH: Continue tamsulosin 0.4 mg nightly Mood disorder: Resume BuSpar 20 mg twice daily, Wellbutrin 150 mg daily, resume olanzapine 5 mg nightly Chronic Kidney Disease (CKD Stage 3): Kidney function remained stable. BUN 23, creatinine 1.2 on day of discharge. Would benefit from CBC, CMP, magnesium follow-up in 1 to 2 weeks creatinine. Hypertension: Resume home regimen at discharge Total time spent on discharge 32 minutes in counseling, documentation, chart review, and direct care with patient. Exam Data for Last 24 hours Vital signs and Labs for Last 24 Hours: Temp Pulse Resp BP Pulse Ox O2 Del Method O2 Flow Rate 98.0 F 61 14 119/71 92 L Nasal Cannula 3 01/16/25 04:00 01/16/25 04:00 01/16/25 04:00 01/16/25 04:00 01/16/25 04:00 01/16/25 06:44 01/16/25 06:44 Laboratory Results - last 24 hr 01/14/25 16:52: Crossmatch ([facility]) See Detail 01/15/25 07:30: WBC 1.8 L*, RBC 3.17 L, Hgb 7.5 L, Hct 25.4 L, MCV 80.1, MCH 23.7 L, MCHC 29.5 L, RDW 18.0 H, Plt Count 57 L, MPV 11.1 H, Neut % (Auto) 70.6, Lymph % (Auto) 20.3, Runnels % (Auto) 6.8, Eos % (Auto) 1.7, Baso % (Auto) 0.6, Neut # (Auto) 1.3 L, Lymph # (Auto) 0.4 L, Runnels # (Auto) 0.1, Eos # (Auto) 0.0, Baso # (Auto) 0.0 01/15/25 17:08: WBC 2.4 L D, RBC 3.87 L, Hgb 9.1 L D, Hct 31.2 L, MCV 80.6, MCH 23.5 L, MCHC 29.2 L, RDW 18.1 H, Plt Count 61 L, MPV 9.8, Neut % (Auto) 72.9, Lymph % (Auto) 16.5, Runnels % (Auto) 8.6, Eos % (Auto) 0.8, Baso % (Auto) 0.8, Neut # (Auto) 1.8, Lymph # (Auto) 0.4 L, Runnels # (Auto) 0.2, Eos # (Auto) 0.0, Baso # (Auto) 0.0 01/16/25 06:17: WBC 1.9 L*, RBC 3.51 L, Hgb 8.3 L, Hct 28.5 L, MCV 81.2, MCH 23.6 L, MCHC 29.1 L, RDW 18.0 H, Plt Count 61 L, MPV 12.1 H, Neut % (Auto) 57.5, Lymph % (Auto) 30.1, Runnels % (Auto) 7.8, Eos % (Auto) 3.6, Baso % (Auto) 1.0, Neut # (Auto) 1.1 L, Lymph # (Auto) 0.6 L, Runnels # (Auto) 0.2, Eos # (Auto) 0.1, Baso # (Auto) 0.0, Sodium 141, Potassium 3.6, Chloride 102, Carbon Dioxide 33 H, Anion Gap 9.6, BUN 23 H, Creatinine 1.20, Estimated Creat Clear 65, Estimated GFR 61, Est GFR ( Amer) 74, Glucose 82, Calcium 8.0 L, Magnesium 1.8, Total Bilirubin 0.7, AST 145 H D, ALT 33, Alkaline Phosphatase 110, Total Protein 6.1 L, Albumin 2.9 L, Globulin 3.2, Albumin/Globulin Ratio 0.9 L I & O for Last 24 hours: Intake & Output 01/13/25 01/14/25 01/15/25 01/16/25 23:59 23:59 23:59 23:59 Intake Total 250 / 362 2022 / 3 120 / 120 Output Total 4915 / 4915 0 / 0 Balance 250 / 362 -2892 / -2772 120 / 120 Weight 139.344 kg 141.43 kg 141.43 kg Constitutional Constitutional: no acute distress, morbidly obese, chronically ill appearing and cooperative *Routine HEENT Exam Head: Present normocephalic Eye: Present EOMI and PERRL ENT: Present mucous membranes moist *Routine Neck Exam Neck: Present supple; Absent lymphadenopathy *Routine Respiratory Exam Respiratory: Present CTA bilaterally; Absent rhonchi, wheezes or crackles *Routine Cardiovascular Exam Cardiovascular: Present RRR *Routine Abdominal Exam Abdominal: Present soft, normoactive bowel sounds and distended; Absent tenderness or rebound *Routine Rectal Exam Patient deferred: visual exam *Routine Exam Patient deferred: penile exam *Routine Extremities Exam Extremities: Present edema (2+ to knees); Absent cyanosis or clubbing *Routine Skin Exam Skin: Present intact and warm; Absent rash *Routine Neurological Exam Neurological: Present alert, oriented X3 and moving all extremities; Absent altered mental status Results Data Completed and Pending Labs on day of discharge: Labs from last 24 hours 01/16/25 01/15/25 01/15/25 06:17 17:08 07:30 WBC 1.9 L* 2.4 L D 1.8 L* RBC 3.51 L 3.87 L 3.17 L Hgb 8.3 L 9.1 L D 7.5 L Hct 28.5 L 31.2 L 25.4 L MCV 81.2 80.6 80.1 MCH 23.6 L 23.5 L 23.7 L MCHC 29.1 L 29.2 L 29.5 L RDW 18.0 H 18.1 H 18.0 H Plt Count 61 L 61 L 57 L MPV 12.1 H 9.8 11.1 H Neut % (Auto) 57.5 72.9 70.6 Lymph % (Auto) 30.1 16.5 20.3 Runnels % (Auto) 7.8 8.6 6.8 Eos % (Auto) 3.6 0.8 1.7 Baso % (Auto) 1.0 0.8 0.6 Neut # (Auto) 1.1 L 1.8 1.3 L Lymph # (Auto) 0.6 L 0.4 L 0.4 L Runnels # (Auto) 0.2 0.2 0.1 Eos # (Auto) 0.1 0.0 0.0 Baso # (Auto) 0.0 0.0 0.0 Sodium 141 Potassium 3.6 Chloride 102 Carbon Dioxide 33 H Anion Gap 9.6 BUN 23 H Creatinine 1.20 Estimated Creat Clear 65 Estimated GFR 61 Est GFR ( Amer) 74 Glucose 82 Calcium 8.0 L Magnesium 1.8 Total Bilirubin 0.7 AST 145 H D ALT 33 Alkaline Phosphatase 110 Total Protein 6.1 L Albumin 2.9 L Globulin 3.2 Albumin/Globulin Ratio 0.9 L Crossmatch ([facility]) 01/14/25 16:52 WBC RBC Hgb Hct MCV MCH MCHC RDW Plt Count MPV Neut % (Auto) Lymph % (Auto) Runnels % (Auto) Eos % (Auto) Baso % (Auto) Neut # (Auto) Lymph # (Auto) Runnels # (Auto) Eos # (Auto) Baso # (Auto) Sodium Potassium Chloride Carbon Dioxide Anion Gap BUN Creatinine Estimated Creat Clear Estimated GFR Est GFR ( Amer) Glucose Calcium Magnesium Total Bilirubin AST ALT Alkaline Phosphatase Total Protein Albumin Globulin Albumin/Globulin Ratio Crossmatch ([facility]) See Detail DS: Diagnosis Discharge Diagnosis (1) Decompensated cirrhosis: Status: Acute Code(s): K72.90 - Hepatic failure, unspecified without coma; K74.60 - Unspecified cirrhosis of liver (2) Melena: Status: Acute Code(s): K92.1 - Melena (3) Symptomatic anemia: Status: Acute Code(s): D64.9 - Anemia, unspecified (4) Gastric antral vascular ectasia (watermelon stomach): Status: Acute Code(s): K31.819 - Angiodysplasia of stomach and duodenum without bleeding (5) ABLA (acute blood loss anemia): Status: Acute Code(s): D62 - Acute posthemorrhagic anemia (6) Low back pain: Status: Acute Code(s): M54.50 - Low back pain, unspecified Qualifiers: Back pain laterality: left Chronicity: unspecified Sciatica presence: unspecified whether sciatica present Qualified Code(s): M54.5 - Low back pain (7) Stage 2 chronic kidney disease: Status: Acute Code(s): N18.2 - Chronic kidney disease, stage 2 (mild) (8) Non-alcoholic cirrhosis: Status: Acute Code(s): K74.60 - Unspecified cirrhosis of liver (9) PERALTA (nonalcoholic steatohepatitis): Status: Acute Code(s): K75.81 - Nonalcoholic steatohepatitis (PERALTA) (10) Portal hypertension: Status: Acute Code(s): K76.6 - Portal hypertension (11) Morbid obesity: Status: Acute Code(s): E66.01 - Morbid (severe) obesity due to excess calories Meds Home Medications and Allergies Home Medications ?Medication ?Instructions ?Recorded ?Confirmed ?Type allopurinol 300 mg tablet 300 mg PO DAILY 03/27/18 01/14/25 History amlodipine 10 mg tablet (Norvasc) 10 mg PO DAILY 03/27/18 01/14/25 History colchicine 0.6 mg tablet (Colcrys) 0.6 mg PO DAILY 03/27/18 01/14/25 History pantoprazole 40 mg tablet,delayed 40 mg PO DAILY GERD 03/27/18 01/14/25 History release sertraline 100 mg tablet (Zoloft) 200 mg PO DAILY 03/27/18 01/14/25 History tizanidine 4 mg capsule (Zanaflex) 4 mg PO BIDP PRN Muscle Spasm 03/27/18 01/15/25 History bupropion HCl 150 mg tablet,12 hr 150 mg PO DAILY 01/15/25 01/15/25 History sustained-release buspirone 10 mg tablet 20 mg PO BID 01/15/25 01/15/25 History gabapentin 800 mg tablet 800 mg PO TID 01/15/25 01/15/25 History olanzapine 5 mg tablet 5 mg PO HS 01/15/25 01/15/25 History oxycodone 40 mg tablet,crush 40 mg PO BID 01/15/25 01/15/25 History resistant,extended release 12 hr (OxyContin) oxycodone-acetaminophen 10 mg-325 1 tab PO Q8HP PRN Moderate Pain 01/15/25 01/15/25 History mg tablet (Scale Score 5-6) tamsulosin 0.4 mg capsule 0.4 mg PO HS 01/15/25 01/15/25 History furosemide 80 mg tablet (Lasix) 80 mg PO DAILY #30 tabs 01/16/25 Rx spironolactone 100 mg tablet 100 mg PO DAILY 30 days #30 tabs 01/16/25 Rx New Prescriptions to Start Prescriptions: furosemide [Lasix] Jass Hammond spironolactone Jass Hammond Allergies Allergy/AdvReac Type Severity Reaction Status Date / Time No Known Allergies Allergy Verified 01/14/25 21:24 Discharge Plan Disposition Patient Disposition: Home, Self-Care Condition: Fair Discharge Order Discharge Orders: Discharge Order (Routine); Ordered 01/16/25 Ordered By: Jass Hammond Follow up Plan Follow up with: Toni Reynoso II, MD [Staff Physician] - 02/19/25 8:30 am Rajani Butler PA [Referring] - 01/23/25 12:00 pm Prescriptions/Medication Reconciliation: New spironolactone 100 mg tablet 100 mg PO DAILY 30 Days Qty: 30 0RF furosemide [Lasix] 80 mg tablet 80 mg PO DAILY Qty: 30 0RF Continued sertraline [Zoloft] 100 MG tablet 200 mg PO DAILY pantoprazole 40 MG tablet,delayed release (DR/EC) 40 mg PO DAILY colchicine [Colcrys] 0.6 MG tablet 0.6 mg PO DAILY tizanidine [Zanaflex] 4 MG capsule 4 mg PO BIDP PRN (Reason: Muscle Spasm) amlodipine [Norvasc] 10 MG tablet 10 mg PO DAILY allopurinol 300 MG tablet 300 mg PO DAILY bupropion HCl 150 mg tablet sustained-release 12 hr 150 mg PO DAILY Patient Comments: TAKE ONE TABLET BY MOUTH 3 TIMES A DAY olanzapine 5 mg tablet 5 mg PO HS Patient Comments: TAKE ONE TABLET BY MOUTH AT BEDTIME oxycodone-acetaminophen 10-325 mg tablet 1 tab PO Q8HP PRN (Reason: Moderate Pain (Scale Score 5-6)) Patient Comments: TAKE 1 TABLET BY MOUTH EVERY 8 HOURS NEEDED FOR MODERATE PAIN tamsulosin 0.4 mg capsule 0.4 mg PO HS Patient Comments: TAKE ONE CAPSULE BY MOUTH EVERY NIGHT gabapentin 800 mg tablet 800 mg PO TID Patient Comments: TAKE ONE TABLET BY MOUTH 3 TIMES A DAY buspirone 10 mg tablet 20 mg PO BID Patient Comments: TAKE TWO TABLETS BY MOUTH 2 TIMES A DAY oxycodone [OxyContin] 40 mg tablet,oral only,ext.rel.12 hr 40 mg PO BID Patient Comments: TAKE 1 TABLET BY MOUTH EVERY TWELVE HOURS Problem Reconciliation Problems Reviewed?: Yes Patient Discharge Instructions ACTIVITY: Continue current activity DIET: continue same diet Patient Instructions: Anemia: How Food and Vitamins Can Help, Anemia, DI for Cirrhosis, DI for Muscle Weakness, DI for Gastrointestinal Bleeding Print Language: Faroese Providers Primary Care Provider: Provider,Referral Admit Provider: Jass Hammond Attending Provider: Jass Hammond
[2025-01-16 08:00] VITALS: BP 137/73; PULSE 60; PULSE 61; RESP 19; TEMP 36.7; O2SAT 91
--- NOTE | 2025-01-16 09:04 | SW/DCPLANNER ---
Per PT patient is independent w/ all care. OT order has been canceled.
[2025-01-16] MEDS: PANTOPRAZOLE 40MG VIAL 40 MG IV (09:08)
[2025-01-16] MEDS: SODIUM CHLORIDE 0.9% 10ML VIAL 10 ML IV (09:08)
[2025-01-16] MEDS: buPROPion HCl SR 150MG TAB 150 MG PO (09:09)
[2025-01-16] MEDS: OXYCODONE 40 MG PO (09:09)
[2025-01-16] MEDS: ALLOPURINOL 300MG TABLET 300 MG PO (09:09)
[2025-01-16] MEDS: BUSPIRONE HCL 10 MG TABLET 20 MG PO (09:10)
[2025-01-16] MEDS: GABAPENTIN 800MG TABLET 800 MG PO (09:15)
[2025-01-16] MEDS: FUROSEMIDE 100MG/10ML VIAL 80 MG IV (09:15)
[2025-01-16] MEDS: SPIRONOLACTONE 25MG TABLET 100 MG PO (09:28)
--- NOTE | 2025-01-16 10:05 | HMH.PTEV ---
Physical Therapy Evaluation Rehab PT IP Evaluation Start: 01/15/25 11:04 Freq: ONCE Status: Active Protocol: Document 01/16/25 08:50 JUDI (Rec: 01/16/25 10:05 JUDI [id number]) Subjective/History History History Pt is a 64-year-old male with a history of cirrhosis, esophageal varices with prior gastrointestinal (GI) bleeds requiring banding, chronic kidney disease (CKD) stage 3, chronic anemia, and chronic pain on oxycodone 40 mg BID and Percocet Q8 PRN who was admitted for a GI bleed. Patient currently lives alone in a small handicap accessible apartment and is independent with all mobility and ADLs at baseline. Subjective Subjective Patient presents supine in bed this am. He does not c/o pain at this time. Pt says that he has been ambulating around his room this morning. He is willing to walk with PT this morning. Patient returned to bed with call light in reach. [facility] How much help from another person do you currently need... Turning from your back to your side None while in a flat bed without using bedrails? Moving from lying on back to sitting on None the side of a flat bed without using bedrails? Moving to and from a bed to a chair ( None including a wheelchair)? Standing up from a chair using your arms None ? (e.g., wheelchair, bedside chair) Walking in hospital room? None Climbing 3-5 steps with a railing? None Mobility Score 24 Mobility Level [facility] Mobility Calculator Mobility 8 Walk 250 feet or more Rehab PT IP Eval Objective Appearance Patient Behavior Appropriate,Cooperative Patient Orientation Person,Place,Time Difficulty following instructions none Speech Pattern Clear,Appropriate Ambulation Patient Able to Ambulate Yes Ambulation Observation IP General Gait Pattern Observation Antalgic Gait,Wide Based Gait Ambulation Distance (feet) 50 Ambulation Assistive Device None Ambulation Ability Supervision/Stand by Balance Ability to Arise Able, uses arms to help Sitting Balance Steady, safe Standing Balance Steady, wide stance Dynamic Sitting Balance Ability Normal Dynamic Standing Balance Ability Normal Transfers Bed Transfer Ability Independent Sit to Stand Bed Transfer Ability Independent Rehab PT IP prob,goals,plan Problems Date of Evaluation: 01/16/25 Discharge Plan PT Discharge Plan Patient is currently most appropriate to return home once medically stable for d/c. Skilled acute therapy is not currently indicated as patient is fully independent with all mobility to allow him to return to his independent PLOF at home. Eval Complexity Eval Charge Codes 27552 - High Complexity PHYSICIAN CERTIFICATION: I certify the specified therapy services for Chema Hendrickson are required, authorized, and reviewed every 30 days.
--- NOTE | 2025-01-17 10:40 | SW/DCPLANNER ---
Spoke with patient on the phone. Patient stated that he is doing well. Patient stated that he is aware of his upcoming appointments. Patient stated that he is going today to sisal picker his new medicine. Patient stated that he has no concerns or questions at this time. Prabha Moss
== END 2025-01-16 10:40 | disposition home or self-care (01) | DRG 378 ==
LOC: ER 19:49 → 2ND 20:35
PROVIDERS: Internal Medicine Gastroenterology; Nurse Practitioner Family; Admitting Provider Internal Medicine Adolescent Medicine; Emergency Provider Emergency Medicine; Visit Provider Internal Medicine Adolescent Medicine
PROC: 0DJ08ZZ Inspection of Upper Intestinal Tract, Via Natural or Artificial Opening Endoscopic (ICD-10-PCS; principal; 2025-01-15 13:30)
DX: K31.811 Angiodysplasia of stomach and duodenum with bleeding (principal); D62 Acute posthemorrhagic anemia; K76.6 Portal hypertension; R18.8 Other ascites; Z68.41 Body mass index [BMI] 40.0-44.9, adult; K72.90 Hepatic failure, unspecified without coma; K92.1 Melena; D73.2 Chronic congestive splenomegaly; K92.0 Hematemesis; I12.9 Hypertensive chronic kidney disease with stage 1 through stage 4 chronic kidney disease, or unspecified chronic kidney disease; M54.50 Low back pain, unspecified; K74.60 Unspecified cirrhosis of liver; E66.01 Morbid (severe) obesity due to excess calories; K75.81 Nonalcoholic steatohepatitis (NASH); E87.70 Fluid overload, unspecified; N18.30 Chronic kidney disease, stage 3 unspecified; K21.9 Gastro-esophageal reflux disease without esophagitis; R77.1 Abnormality of globulin; D69.6 Thrombocytopenia, unspecified; N40.0 Benign prostatic hyperplasia without lower urinary tract symptoms; I25.10 Atherosclerotic heart disease of native coronary artery without angina pectoris; R74.8 Abnormal levels of other serum enzymes; R00.0 Tachycardia, unspecified; R73.9 Hyperglycemia, unspecified; D72.819 Decreased white blood cell count, unspecified; F39 Unspecified mood [affective] disorder; Z79.899 Other long term (current) drug therapy; Z79.891 Long term (current) use of opiate analgesic; Z28.310 Unvaccinated for COVID-19; Z28.39 Other underimmunization status
CPT/HCPCS: 36415; 74174; 80048; 80053; 82150; 82803; 83605; 83690; 83735; 84100; 85025; 85610; 85730; 86803; 86850; 87081; 93005; 97163; 99291; C2618; J0696; J1171; J1938; J2354; J2405; J2550; J7030; P9016; Q9967

== ENCOUNTER 2025-01-17 10:50 | Outpatient (CLI) | payer MEDICARE, MEDICAID, SELFPAY ==
--- OUTSIDE RECORDS SUMMARY | 2025-01-17 10:53 | XMS_ITS | Data Portability ---
Author Organization [place] 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 Will follow-up ED findings. [email or web address] Not available 11/01/2024 20:50:08 12/16/2024 12/16/2024 63-year-old [...] unremarkable findings. He reports recent MRI at [facility] showed degenerative changes of the lower spine. [email or web address] Not available 12/16/2024 15:19:30 Plan of Treatment Reminders Order Date Submit Date Provider Last Modified By Organization Details Last Modified Time Details Appointments OV EST 30 2024 02:30P Isaac Gregg PA-C Not available Not available Not available Lab CMP, serum or plasma 2024 025 [email or web address] [facility], [address] , [place], [address], 01/07/2025 08:45:30 CBC w/ auto diff 2024 025 [facility], [address] , [place], [address], 12/31/2024 15:15:43 type + screen, blood [email or web address] [facility] [address] [facility], [address] , [place], [address], 01/07/2025 08:45:30 hemoglobi n + hematocri t, blood 2024 025 GENESEO [facility], [address], [address], [place], [address], 12/17/2024 07:13:45 chronic leukemia panel, flow cytometry , unspecifi ed specimen 2024 025 [email or web address] [facility], [address] , [place], [address], 12/19/2024 12:14:49 ldh, serum or plasma 2024 025 [facility], [address] [facility], [place], [address], 12/12/2024 18:11:28 iron + TIBC + ferritin, serum 2024 025 [facility], [address] [facility], [place], [address], 12/19/2024 12:14:49 CMP, serum or plasma 2024 025 [facility], [address] [facility], [place], [address], 12/12/2024 18:11:26 CBC w/ auto diff 2024 025 [facility], [address] [facility], [place], [address], 12/12/2024 18:43:17 vitamin B12 + folate, serum or blood 2024 025 [email or web address] [facility], [address] [place], [address], 12/19/2024 12:14:49 iron saturatio n, serum [address] [facility], [address] [place], [address], 12/19/2024 12:14:49 type + screen, serum [address] [facility], [address] [facility], [place], [address], 12/19/2024 12:14:[address] referral 2024 025 [email or web address] Radha Arauz MD, [address], [address], 12/16/2024 13:31:45 Procedures None recorded. Surgeries None recorded. Imaging RF, small bowel follow-th rough study 2024 025 [email or web address] [facility] Scheduling Department -New Scheduling Process, [address] [place], [address], 12/23/2024 08:41:07 Medication Orders lactulose 10 gram/15 mL oral solution 2024 025 JANA Mobley [facility], [address] [facility] [address] [place], [id number], 11/01/2024 20:46:32 Patient TargetsNo targets recorded. Patient Instructions Encounter Date Encounter Id Patient Instructions Last Modified By Organization Details Last Modified Time 11/01/2024 [id number] EGD at the [facility] on 09/30/2024 Findings: Small (< 5 mm) [...] normal. The exam was otherwise without abnormality. [email or web address] Not available 11/01/2024 20:30:40 Reason for Referral Neurologist Referral for Abn ormal movement Referring Physician: Slade Lennon, Gastroenterology, Encounter Date: 12/16/2024 Results Created Date Observation Date Name Description Value Unit Range Abnormal Flag Note LastModifiedBy Organization Detail LastModifiedTime 12/13/1912/12/2024 IRON STUDY (IRON /TIBC /%SAT ) iron 19 mcg/m L 40-180 low Not Available [facility] ([facility]) [address] [facility], [place], [address], 12/12/2024 17:59:30 12/13/19 25 12/12/2024 IRON STUDY (IRON /TIBC /%SAT ) TIBC 350 mcg/d L 250-45 0 Not Available [facility] ([facility]) [address] , [place], [address], 12/12/2024 17:59:30 12/13/19 25 12/12/2024 IRON STUDY (IRON /TIBC /%SAT ) %sat 5 15-55 low Not Available [facility] ([facility]) [address] , [place], [address], 12/12/2024 17:59:30 12/13/19 25 12/12/2024 COMP METAB OLIC PANEL sodium 145 mmol/ L 136-14 5 Not Available [facility] ([facility]) [address], [place], [address], 12/12/2024 18:11:26 12/13/19 25 12/12/2024 COMP METAB OLIC PANEL potassium 4.1 mmol/ L 3.6-5. 0 Not Available [facility] ([facility]) [address], [place], [address], 12/12/2024 18:11:26 12/13/19 25 12/12/2024 COMP METAB OLIC PANEL chloride 108 mmol/ L 98-107 high Not Available [facility] ([facility]) [address] , [place], [address], 12/12/2024 18:11:26 12/13/19 25 12/12/2024 COMP METAB OLIC PANEL carbon dioxide 28.2 mmol/ L 21.0-3 2.0 Not Available [facility] ([facility]) [address] [place], [address], 12/12/2024 18:11:26 12/13/19 25 12/12/2024 COMP METAB OLIC PANEL anion gap 12.9 Not Available [facility] ([facility]) [address] [place], [address], 12/12/2024 18:11:26 12/13/19 25 12/12/2024 COMP METAB OLIC PANEL glucose 92 mg/dL 70-120 Not Available [facility] ([facility]) [address], [place], [address], 12/12/2024 18:11:26 12/13/19 25 12/12/2024 COMP METAB OLIC PANEL BUN 21 mg/dL 7-18 high Not Available [facility] ([facility]) [address], [place], [address], 12/12/2024 18:11:26 12/13/19 25 12/12/2024 COMP METAB OLIC PANEL creatinine 1.4 mg/dL 0.6-1. 3 high Not Available [facility] ([facility]) [address], [place], [address], 12/12/2024 18:11:26 12/13/19 25 12/12/2024 COMP METAB [...] ge ing kiney funct ion. Not Available [facility] ([facility]) [address], [place], [address], 12/12/2024 18:11:26 12/13/19 25 12/12/2024 COMP METAB OLIC PANEL osmolality (calculated) 304 mOsm/ kg 275-30 1 high OSMOL ALITY IS A CALCU LATIO N UTILI ZING THE SERUM /PLAS MA SODIU M, GLUCO SE AND UREA NITRO GEN (BUN) LEVEL S. FOR THE MOST ACCUR ATE RESUL T A MEASU RED SERUM OSMOL ALITY IS SUGGE STED. Not Available [facility] ([facility]) [address], [place], [address], 12/12/2024 18:11:26 12/13/19 25 12/12/2024 COMP METAB OLIC PANEL total protein 6.4 g/dL 6.4-8. 2 Not Available [facility] ([facility]) [address], [place], [address], 12/12/2024 18:11:26 12/13/19 25 12/12/2024 COMP METAB OLIC PANEL albumin 2.6 g/dL 3.4-5. 0 low Not Available [facility] ([facility]) [address], [place], [address], 12/12/2024 18:11:26 12/13/19 25 12/12/2024 COMP METAB OLIC PANEL globulin 3.8 Not Available [facility] ([facility]) [address], [place], [address], 12/12/2024 18:11:26 12/13/19 25 12/12/2024 COMP METAB OLIC PANEL alb/glob ratio 0.7 0.7-2 Not Available [facility] ([facility]) [address], [place], [address], 12/12/2024 18:11:26 12/13/19 25 12/12/2024 COMP METAB OLIC PANEL calcium 8.3 mg/dL 8.5-10 .5 low Not Available [facility] ([facility]) [address], [place], [address], 12/12/2024 18:11:26 12/13/19 25 12/12/2024 COMP METAB OLIC PANEL bilirubin total 0.60 mg/dL 0.10-1 .00 Not Available [facility] ([facility]) [address] , [place], [address], 12/12/2024 18:11:26 12/13/19 25 12/12/2024 COMP METAB OLIC PANEL AST (SGOT) 29 U/L 0-37 Not Available [facility] ([facility]) [address], [place], [address], 12/12/2024 18:11:26 12/13/19 25 12/12/2024 COMP METAB OLIC PANEL ALT (SGPT) 23 U/L 0-65 Not Available [facility] ([facility]) [address], [place], [address], 12/12/2024 18:11:26 12/13/19 25 12/12/2024 COMP METAB OLIC PANEL alk phosphatase 127 U/L 46-116 high Not Available [facility] ([facility]) [address], [place], [address], 12/12/2024 18:11:26 12/13/19 25 12/12/2024 JORGE TIN ferritin, serum 12 NG/mL 3-244 Not Available [facility] ([facility]) [address], [place], [address], 12/12/2024 18:11:27 12/13/19 25 12/12/2024 LDH (LD) LDH 205 U/L 0-190 high Not Available [facility] ([facility]) [address] [facility], [place], [address], 12/12/2024 18:11:28 12/13/19 25 12/12/2024 VITAM IN B12 vitamin B12 607 pg/mL 193-98 6 *Note : Refer beto agarwal New Test Metho d in use. Not Available [facility] ([facility]) [address], [place], [address], 12/12/2024 18:29:30 12/13/19 25 12/12/2024 VITAM IN B12 folate (folic acid), serum 12.7 NG/mL 8.6-58 .9 *Note : Refer beto Molina. New Test Metho d in use. Not Available [facility] ([facility]) [address], [place], [address], 12/12/2024 18:29:30 12/13/19 25 12/12/2024 CBC AUTO W DIFF WBC 2.0 K/uL 4.0-10 .5 low Not Available [facility] ([facility]) [address] , [place], [address], 12/12/2024 18:43:17 12/13/19 25 12/12/2024 CBC AUTO W DIFF RBC 3.4 M/mm3 4.7-6. 1 low Not Available [facility] ([facility]) [address] , [place], [address], 12/12/2024 18:43:17 12/13/19 25 12/12/2024 CBC AUTO W DIFF HGB 7.1 gm/dL 13.5-1 8.0 low Not Available [facility] ([facility]) [address] , [place], [address], 12/12/2024 18:43:17 12/13/19 25 12/12/2024 CBC AUTO W DIFF HCT 26.8 % 42.0-5 2.0 low Not Available [facility] ([facility]) [address] , [place], [address], 12/12/2024 18:43:17 12/13/19 25 12/12/2024 CBC AUTO W DIFF MCV 80.0 fL 78-100 Not Available [facility] ([facility]) [address] , [place], [address], 12/12/2024 18:43:17 12/13/19 25 12/12/2024 CBC AUTO W DIFF MCH 21.2 pg 27-31 low Not Available [facility] ([facility]) [address] , [place], [address], 12/12/2024 18:43:17 12/13/19 25 12/12/2024 CBC AUTO W DIFF MCHC 26.5 g/dL 32-36 low Not Available [facility] ([facility]) [address] , [place], [address], 12/12/2024 18:43:17 12/13/19 25 12/12/2024 CBC AUTO W DIFF RDW 16.2 % 11.5-1 4.0 high Not Available [facility] ([facility]) [address], [place], [address], 12/12/2024 18:43:17 12/13/19 25 12/12/2024 CBC AUTO W DIFF platelet count 74 K/uL 150-45 0 low Not Available [facility] ([facility]) [address], [place], [address], 12/12/2024 18:43:17 12/13/19 25 12/12/2024 CBC AUTO W DIFF MPV TNP fL 6-9.5 TEST NOT PERFO RMED Not Available [facility] ([facility]) [address], [place], [address], 12/12/2024 18:43:17 12/13/19 25 12/12/2024 CBC AUTO W DIFF neutrophil% 68.2 % 43-65 high Not Available [facility] ([facility]) [address], [place], [address], 12/12/2024 18:43:17 12/13/19 25 12/12/2024 CBC AUTO W DIFF lymphocyte% 18.5 % 20.5-4 5.5 low Not Available [facility] ([facility]) [address] [place], [address], 12/12/2024 18:43:17 12/13/19 25 12/12/2024 CBC AUTO W DIFF monocyte% 8.2 % 5.5-11 .7 Not Available [facility] ([facility]) [address], [place], [address], 12/12/2024 18:43:17 12/13/19 25 12/12/2024 CBC AUTO W DIFF eosinophil% 3.1 % 0.9-2. 9 high Not Available [facility] ([facility]) [address], [place], [address], 12/12/2024 18:43:17 12/13/19 25 12/12/2024 CBC AUTO W DIFF basophil% 1.5 % 0.2-1. 0 high Not Available [facility] ([facility]) [address], [place], [address], 12/12/2024 18:43:17 12/13/19 25 12/12/2024 CBC AUTO W DIFF immature granulocytes % 0.5 % 0.0-0. 8 Not Available [facility] ([facility]) [address], [place], [address], 12/12/2024 18:43:17 12/13/19 25 12/12/2024 CBC AUTO W DIFF nucleated red blood cells % 0.0 % Not Available [facility] ([facility]) [address] [facility], [place], [address], 12/12/2024 18:43:17 12/13/19 25 12/12/2024 CBC AUTO W DIFF neutrophil# 1.3 K/uL 2.2-4. 8 low Not Available [facility] ([facility]) [address] [place], [address], 12/12/2024 18:43:17 12/13/19 25 12/12/2024 CBC AUTO W DIFF lymphocyte# 0.4 cell/ mcL 1.3-2. 9 low Not Available [facility] ([facility]) [address] [place], [address], 12/12/2024 18:43:17 12/13/19 25 12/12/2024 CBC AUTO W DIFF monocyte# 0.2 cell/ mcL 0.3-0. 8 low Not Available [facility] ([facility]) [address] , [place], [address], 12/12/2024 18:43:17 12/13/19 25 12/12/2024 CBC AUTO W DIFF eosinophil# 0.1 cell/ mcL 0-0.2 Not Available [facility] ([facility]) [address] , [place], [address], 12/12/2024 18:43:17 12/13/19 25 12/12/2024 CBC AUTO W DIFF basophil# 0.0 cell/ mcL 0.0-1. 0 Not Available [facility] ([facility]) [address], [place], [address], 12/12/2024 18:43:17 12/13/19 25 12/12/2024 CBC AUTO W DIFF immature gramulocytes # 0.01 K/uL Not Available [facility] ([facility]) [address], [place], [address], 12/12/2024 18:43:17 12/13/19 25 12/12/2024 CBC AUTO W DIFF nucleated red blood cells # 0.00 K/uL Not Available [facility] ([facility]) [address], [place], [address], 12/12/2024 18:43:17 12/13/19 25 12/12/2024 CBC AUTO W DIFF manual differential YES Not Available [facility] ([facility]) [address] , [place], [address], 12/12/2024 18:43:17 12/13/19 25 12/12/2024 CBC AUTO W DIFF segmented neutrophil 75 % 42-76 Not Available [facility] ([facility]) [address], [place], [address], 12/12/2024 18:43:17 12/13/19 25 12/12/2024 CBC AUTO W DIFF lymphocyte 15 % 15-41 Not Available [facility] ([facility]) [address] [facility], [place], [address], 12/12/2024 18:43:17 12/13/19 25 12/12/2024 CBC AUTO W DIFF monocyte 7 % 2-9 Not Available [facility] ([facility]) [address] [facility], [place], [address], 12/12/2024 18:43:17 12/13/19 25 12/12/2024 CBC AUTO W DIFF eosinophil 3 % 0-3 Not Available [facility] ([facility]) [address] [facility], [place], [address], 12/12/2024 18:43:17 12/13/19 25 12/12/2024 CBC AUTO W DIFF nucleated RBC's 1 % 0-1 Not Available [facility] ([facility]) [address] [facility], [place], [address], 12/12/2024 18:43:17 12/13/19 25 12/12/2024 CBC AUTO W DIFF platelet estimate DECREA SED adequa te delta Not Available [facility] ([facility]) [address] [facility], [place], [address], 12/12/2024 18:43:17 12/13/19 25 12/12/2024 CBC AUTO W DIFF platelet morphology NORMAL normal Not Available [facility] ([facility]) [address], [place], [address], 12/12/2024 18:43:17 12/13/19 25 12/12/2024 CBC AUTO W DIFF RBC morphology ABNORM AL normal delta Not Available [facility] ([facility]) [address] [facility], [place], [address], 12/12/2024 18:43:17 12/13/19 25 12/12/2024 CBC AUTO W DIFF anisocytosis 2+ none seen Not Available [facility] ([facility]) [address] [facility], [place], [address], 12/12/2024 18:43:17 12/13/19 25 12/12/2024 CBC AUTO W DIFF hypochromia 2+ none seen Not Available [facility] ([facility]) [address] [facility], [place], [address], 12/12/2024 18:43:17 12/13/19 25 12/16/2024 CHRON IC LEUKE MAXIMUS/L YMPHO MA specimen type Commen t . Perip heral blood Not Available [facility] ([facility]) [address] [facility], [place], [address], 12/16/2024 17:11:04 12/13/19 25 12/16/2024 CHRON IC LEUKE MAXIMUS/L YMPHO MA clinical information Commen t . Cullen hogue CBC dated 2024 shows pancy topen ia. WBC count 2.9, RBC 4.12, HGB 9.0, PLT 93K, Aly 2.2, Lym 0.4, Mon 0.2. Not Available [facility] ([facility]) [address] [facility], [place], [address], 12/16/2024 17:11:04 12/13/19 25 12/16/2024 CHRON IC [...] [place] [address] [place], [place] [address] Lab Direc tor: Renettagonzales Beaulieu [facility] , Phone : [phone] Perfo rmed at: [facility] [place] [address] , [place] [address] Lab Direc tor: Jimenez Beaulieu [facility] , Phone : [phone] Not Available [facility] ([facility]) [address] [facility], [place], [address], 12/16/2024 17:11:04 12/13/19 25 12/16/2024 CHRON IC LEUKE MAXIMUS/L YMPHO MA flow comment Commen t . Previ ous pheno typin g resul t is revie wed. Not Available [facility] ([facility]) [address] [facility], [place], [address], 12/16/2024 17:11:04 12/13/19 25 12/16/2024 CHRON IC LEUKE MAXIMUS/L YMPHO MA flow interpretati on Commen t . No signi fican t immun ophen otypi c abnor malit y detec kilo Not Available [facility] ([facility]) [address] [facility], [place], [address], 12/16/2024 17:11:04 12/13/19 25 12/16/2024 CHRON IC [...] 11%, NK c ells 4%. Not Available [facility] ([facility]) [address] [facility], [place], [address], 12/16/2024 17:11:04 12/13/19 25 12/16/2024 CHRON IC LEUKE MAXIMUS/L YMPHO MA resulting path name Commen t . Nessa allen M.D. Not Available [facility] ([facility]) [address] [facility], [place], [address], 12/16/2024 17:11:04 12/13/19 25 12/16/2024 CHRON IC [...] Mel l CD64 Mel l Not Available [facility] ([facility]) [address] [facility], [place], [address], 12/16/2024 17:11:04 12/13/19 25 12/16/2024 CHRON IC LEUKE MAXIMUS/L YMPHO MA analysis and gating strategy Commen t . 8 color shilo sis with CD45/ SSC ezequiel flores [employer]- Shilo sis perfo rmed at [facility] [employer], [address], [place] [address] , Direc tor: Jimenez Beaulieu , [facility] Not Available [facility] ([facility]) [address] [facility], [place], [address], 12/16/2024 17:11:04 12/13/19 25 12/16/2024 CHRON IC LEUKE MAXIMUS/L YMPHO MA viability Commen t . 92% Not Available [facility] ([facility]) [address] [facility], [place], [address], 12/16/2024 17:11:04 12/14/19 25 12/13/2024 HGB/H CT POSTT RANSF USION HGB 8.7 gm/dL 13.5-1 8.0 low Not Available [facility] ([facility]) [address] [facility], [place], [address], 12/13/2024 16:59:28 12/14/19 25 12/13/2024 HGB/H CT POSTT RANSF USION HCT 31.3 % 42.0-5 2.0 low Not Available [facility] ([facility]) [address] [facility], [place], [address], 12/13/2024 16:59:28 12/17/19 25 12/17/2024 HGB+H CT hemoglobin 8.4 g/dL 13.0-1 7.7 below low normal Not Available [facility] ([facility]) [address] [facility], [place], [address], 12/17/2024 07:13:45 12/17/19 25 12/17/2024 HGB+H CT hematocrit 30.2 % 37.5-5 1.0 below low normal Not Available [facility] ([facility]) [address] [facility], [place], [address], 12/17/2024 07:13:45 01/01/20 25 12/31/2024 COMP METAB OLIC PANEL sodium 144 mmol/ L 136-14 5 Not Available [facility] ([facility]) [address] , [place], [address], 12/31/2024 14:26:32 01/01/20 25 12/31/2024 COMP METAB OLIC PANEL potassium 4.4 mmol/ L 3.6-5. 0 Not Available [facility] ([facility]) [address], [place], [address], 12/31/2024 14:26:32 01/01/20 25 12/31/2024 COMP METAB OLIC PANEL chloride 107 mmol/ L 98-107 Not Available [facility] ([facility]) [address], [place], [address], 12/31/2024 14:26:32 01/01/20 25 12/31/2024 COMP METAB OLIC PANEL carbon dioxide 29.0 mmol/ L 21.0-3 2.0 Not Available [facility] ([facility]) [address], [place], [address], 12/31/2024 14:26:32 01/01/20 25 12/31/2024 COMP METAB OLIC PANEL anion gap 12.4 Not Available [facility] ([facility]) [address] [place], [address], 12/31/2024 14:26:32 01/01/20 25 12/31/2024 COMP METAB OLIC PANEL glucose 89 mg/dL 70-120 Not Available [facility] ([facility]) [address] [place], [address], 12/31/2024 14:26:32 01/01/20 25 12/31/2024 COMP METAB OLIC PANEL BUN 22 mg/dL 7-18 high Not Available [facility]) [address] [facility] [place], [address], 12/31/2024 14:26:32 01/01/20 25 12/31/2024 COMP METAB OLIC PANEL creatinine 1.4 mg/dL 0.6-1. 3 high Not Available [facility] ([facility]) [address], [place], [address], 12/31/2024 14:26:32 01/01/20 25 12/31/2024 COMP METAB [...] ge ing kiney funct ion. Not Available [facility] ([facility]) [address], [place], [address], 12/31/2024 14:26:32 01/01/20 25 12/31/2024 COMP METAB OLIC PANEL osmolality (calculated) 302 mOsm/ kg 275-30 1 high OSMOL ALITY IS A CALCU LATIO N UTILI ZING THE SERUM /PLAS MA SODIU M, GLUCO SE AND UREA NITRO GEN (BUN) LEVEL S. FOR THE MOST ACCUR ATE RESUL T A MEASU RED SERUM OSMOL ALITY IS SUGGE STED. Not Available [facility] ([facility]) [address], [place], [address], 12/31/2024 14:26:32 01/01/20 25 12/31/2024 COMP METAB OLIC PANEL total protein 6.5 g/dL 6.4-8. 2 Not Available [facility] ([facility]) [address], [place], [address], 12/31/2024 14:26:32 01/01/20 25 12/31/2024 COMP METAB OLIC PANEL albumin 2.7 g/dL 3.4-5. 0 low Not Available [facility] ([facility]) [address] , [place], [address], 12/31/2024 14:26:32 01/01/20 25 12/31/2024 COMP METAB OLIC PANEL globulin 3.8 Not Available [facility] ([facility]) [address], [place], [address], 12/31/2024 14:26:32 01/01/20 25 12/31/2024 COMP METAB OLIC PANEL alb/glob ratio 0.7 0.7-2 Not Available [facility] ([facility]) [address], [place], [address], 12/31/2024 14:26:32 01/01/20 25 12/31/2024 COMP METAB OLIC PANEL calcium 8.6 mg/dL 8.5-10 .5 Not Available [facility] ([facility]) [address], [place], [address], 12/31/2024 14:26:32 01/01/20 25 12/31/2024 COMP METAB OLIC PANEL bilirubin total 0.80 mg/dL 0.10-1 .00 Not Available [facility] ([facility]) [address], [place], [address], 12/31/2024 14:26:32 01/01/20 25 12/31/2024 COMP METAB OLIC PANEL AST (SGOT) 29 U/L 0-37 Not Available [facility] ([facility]) [address] [place], [address], 12/31/2024 14:26:32 01/01/20 25 12/31/2024 COMP METAB OLIC PANEL ALT (SGPT) 25 U/L 0-65 Not Available [facility] ([facility]) [address] [place], [address], 12/31/2024 14:26:32 01/01/20 25 12/31/2024 COMP METAB OLIC PANEL alk phosphatase 127 U/L 46-116 high Not Available [facility] ([facility]) [address], [place], [address], 12/31/2024 14:26:32 01/01/20 25 12/31/2024 CBC AUTO W DIFF WBC 1.7 K/uL 4.0-10 .5 critical low Not Available [facility] ([facility]) [address], [place], [address], 12/31/2024 15:15:43 01/01/20 25 12/31/2024 CBC AUTO W DIFF RBC 3.5 M/mm3 4.7-6. 1 low Not Available [facility] ([facility]) [address] , [place], [address], 12/31/2024 15:15:43 01/01/20 25 12/31/2024 CBC AUTO W DIFF HGB 7.8 gm/dL 13.5-1 8.0 low Not Available [facility] ([facility]) [address] , [place], [address], 12/31/2024 15:15:43 01/01/20 25 12/31/2024 CBC AUTO W DIFF HCT 28.0 % 42.0-5 2.0 low Not Available [facility] ([facility]) [address] , [place], [address], 12/31/2024 15:15:43 01/01/20 25 12/31/2024 CBC AUTO W DIFF MCV 80.0 fL 78-100 Not Available [facility] ([facility]) [address] , [place], [address], 12/31/2024 15:15:43 01/01/20 25 12/31/2024 CBC AUTO W DIFF MCH 22.3 pg 27-31 low Not Available [facility] ([facility]) [address] , [place], [address], 12/31/2024 15:15:43 01/01/20 25 12/31/2024 CBC AUTO W DIFF MCHC 27.9 g/dL 32-36 low Not Available [facility] ([facility]) [address] , [place], [address], 12/31/2024 15:15:43 01/01/20 25 12/31/2024 CBC AUTO W DIFF RDW 18.3 % 11.5-1 4.0 high Not Available [facility] ([facility]) [address] , [place], [address], 12/31/2024 15:15:43 01/01/20 25 12/31/2024 CBC AUTO W DIFF platelet count 75 K/uL 150-45 0 low Not Available [facility] ([facility]) [address] , [place], [address], 12/31/2024 15:15:43 01/01/20 25 12/31/2024 CBC AUTO W DIFF MPV 11.8 fL 6-9.5 high Not Available [facility] ([facility]) [address] , [place], [address], 12/31/2024 15:15:43 01/01/20 25 12/31/2024 CBC AUTO W DIFF neutrophil% 76.4 % 43-65 high Not Available [facility] ([facility]) [address] [place], [address], 12/31/2024 15:15:43 01/01/20 25 12/31/2024 CBC AUTO W DIFF lymphocyte% 15.5 % 20.5-4 5.5 low Not Available [facility] ([facility]) [address], [place], [address], 12/31/2024 15:15:43 01/01/20 25 12/31/2024 CBC AUTO W DIFF monocyte% 5.2 % 5.5-11 .7 low Not Available [facility] ([facility]) [address], [place], [address], 12/31/2024 15:15:43 01/01/20 25 12/31/2024 CBC AUTO W DIFF eosinophil% 1.7 % 0.9-2. 9 Not Available [facility] ([facility]) [address] [facility], [place], [address], 12/31/2024 15:15:43 01/01/20 25 12/31/2024 CBC AUTO W DIFF basophil% 0.6 % 0.2-1. 0 Not Available [facility] ([facility]) [address] [place], [address], 12/31/2024 15:15:43 01/01/20 25 12/31/2024 CBC AUTO W DIFF immature granulocytes % 0.6 % 0.0-0. 8 Not Available [facility] ([facility]) [address] [place], [address], 12/31/2024 15:15:43 01/01/20 25 12/31/2024 CBC AUTO W DIFF nucleated red blood cells % 0.0 % Not Available [facility] ([facility]) [address] [place], [address], 12/31/2024 15:15:43 01/01/20 25 12/31/2024 CBC AUTO W DIFF neutrophil# 1.3 K/uL 2.2-4. 8 low Not Available [facility] ([facility]) [address] [place], [address], 12/31/2024 15:15:43 01/01/20 25 12/31/2024 CBC AUTO W DIFF lymphocyte# 0.3 cell/ mcL 1.3-2. 9 low Not Available [facility] ([facility]) [address], [place], [address], 12/31/2024 15:15:43 01/01/20 25 12/31/2024 CBC AUTO W DIFF monocyte# 0.1 cell/ mcL 0.3-0. 8 low Not Available [facility] ([facility]) [address], [place], [address], 12/31/2024 15:15:43 01/01/20 25 12/31/2024 CBC AUTO W DIFF eosinophil# 0.0 cell/ mcL 0-0.2 Not Available [facility] ([facility]) [address], [place], [address], 12/31/2024 15:15:43 01/01/20 25 12/31/2024 CBC AUTO W DIFF basophil# 0.0 cell/ mcL 0.0-1. 0 Not Available [facility] ([facility]) [address] [facility], [place], [address], 12/31/2024 15:15:43 01/01/20 25 12/31/2024 CBC AUTO W DIFF immature gramulocytes # 0.01 K/uL Not Available [facility] ([facility]) [address] [facility], [place], [address], 12/31/2024 15:15:43 01/01/20 25 12/31/2024 CBC AUTO W DIFF nucleated red blood cells # 0.00 K/uL Not Available [facility] ([facility]) [address] [facility], [place], [address], 12/31/2024 15:15:43 01/01/20 25 12/31/2024 CBC AUTO W DIFF manual differential NO Not Available [facility] ([facility]) [address] [facility], [place], [address], 12/31/2024 15:15:43 01/01/20 25 12/31/2024 CBC AUTO W DIFF platelet estimate DECREA SED adequa te delta Not Available [facility] ([facility]) [address], [place], [address], 12/31/2024 15:15:43 01/01/20 25 12/31/2024 CBC AUTO W DIFF platelet morphology NORMAL normal Not Available [facility] ([facility]) [address] [facility], [place], [address], 12/31/2024 15:15:43 01/01/20 25 12/31/2024 CBC AUTO W DIFF RBC morphology ABNORM AL normal delta Not Available [facility] ([facility]) [address] [facility], [place], [address], 12/31/2024 15:15:43 01/01/20 25 12/31/2024 CBC AUTO W DIFF anisocytosis 2+ none seen Not Available [facility] ([facility]) [address] [facility], [place], [address], 12/31/2024 15:15:43 01/01/20 25 12/31/2024 CBC AUTO W DIFF microcytosis 1+ none seen Not Available [facility] ([facility]) [address] [place], [address], 12/31/2024 15:15:43 01/01/20 25 12/31/2024 CBC AUTO W DIFF macrocytosis SLIGHT none seen Not Available [facility] ([facility]) [address] [place], [address], 12/31/2024 15:15:43 01/01/20 25 12/31/2024 CBC AUTO W DIFF hypochromia 3+ none seen Not Available [facility] ([facility]) [address] [facility] [place] [place], [address], 12/31/2024 15:15:43 01/01/20 25 12/31/2024 CBC AUTO W DIFF rouleaux SLIGHT none seen Not Available [facility] ([facility]) [address], [place], [address], 12/31/2024 15:15:43 01/01/20 25 12/31/2024 CBC AUTO W DIFF stomatocytes SLIGHT none seen Not Available [facility] ([facility]) [address], [place], [address], 12/31/2024 15:15:43 12/13/19 25 12/06/2024 MRI proce dure (PROC ) No observ ation record ed. [facility] (Med Record) [address], [place], [address], 2024 10:13:14 12/17/19 25 12/06/2024 MRI, cervi gil spine , w/wo contr ast No observ ation record ed. [email or web address] Not Available 2024 11:26:57 12/21/19 25 12/20/2024 RF, small bowel follo w-thr ough study No observ ation record ed. [facility] [address], [place], [address], 2024 10:13:47 01/10/20 25 01/09/2025 CT biops y bone marro w [facility] [address] [place] [address] Phone: Fax: Name: BARTOLO HENDRICKSON Exam Date: 025 : 962 Age 64 years Gender : M Access ion: [id number] Physic linda: BRAN MUÑOZi ty: [facility] Facili ty HSV: Outpat ient Exam: CT BIOPSY BONE MARROW PROCED URE: CT-CUBA DED BONE MARROW BIOPSY PHYSIC LINDA ADMINI STERED CONSCI OUS SEDATI ON ATTEND ING Physic linda: Dr. Ten mendes MD PRIMAR Y OPERAT OR: Marcio luong, COMPUTER TECHNOLOGY TRAINER-C. Direct Superv ision: Willie nolasco PA-C. CLINIC [...] ucer needle was advanc ed into the second language tutor ior right iliac bone. Next, the inner stylet te was remove d and 20 mL of bone aspira te was obtain ed, which was handed to the pernell guzman techno logist . Then the introd [...] actory biopsy needle positi oning within the second language tutor ior right ilium bone. IMPRES YUNG: Uncomp [...] Thank you for referr BARTOLO Viramontes to [facility]. Legall y authen ticate d by SAMRA OMALLEY 01-09 09:44: 21 CC'ed Logic: Orderi ng Provid er: WILLY SOTOMAYOR Attend ing Provid er: WILLY SOTOMAYOR Referr ing Provid er: WILLY SOTOMAYOR Admitt ing Provid er: WILLY weinstein [facility] - Physical Therapy [address] [facility], [place], [address], 01/09/2025 14:07:33 Result Notes None recorded. Problems Name Problem SNOMED Code Status Onset Date Resolution Date Notes Provider Name and Address Organization Details Recorded Time Weakness present 547897847 Active MANOLO Luna - [place] - [place] & [place] 4 14:32:40 Anemia 728103373 Active Deirdre Workbob null, [place] - [facility] - [place] & [place] 4 14:32:40 High troponin I level 724280415 Active Deirdre Workbob null, [place] - [facility] [place] & [place] 4 14:32:40 Dyspnea on exertion 28509006 Active Deirdre Workbob null, [place] [facility] [place] & [place] 4 14:32:40 Gastrointe stinal hemorrhage 47083676 Active Deirdre Workbob null, [place] [facility] [place] & [place] 4 14:32:40 Atheroscle rosis of coronary artery without angina pectoris 0003495736182 03 Active 2023 Maxi Goodwin MD [address] [facility], [place], [address] , [place] - [facility] - [place] & [place] 4 13:56:37 Essential hypertensi on 55743955 Active 2023 Maxi Goodwin MD [address] [facility], [place], [address] , [place] - [facility] - [place] & [place] 4 13:56:52 Heart murmur 07311844 Active 2023 Maxi Goodwin MD [address] [facility], [place], [address] , [place] - [facility] - [place] & [place] 4 14:53:45 Anemia due to blood loss 671324048 Active 2024 Slade Lennon PA-C [address] , [place], [address] , [place] - [facility] - [facility] & [place] 5 20:36:19 Abnormal movement 234692494 Active 2024 Slade Lennon PA-C [address], [place], [address] , [place] - [facility] - [facility] & [place] 5 13:24:16 Anxiety 34803947 Active 2021 Tarun Hopkins null, [place] - [facility] - [facility] & [place] 2 13:21:47 Chronic pain 26519360 Active 2021 Tarun Hopkins null, [place] - [facility] - [place] & [place] 2 13:21:53 Hypertensi ve disorder 04389102 Active 2021 Tarun Hopkins null, [place] - [facility] - [place] & [place] 2 13:22:00 Diabetes mellitus 29755392 Active 2021 Tarun Hopkins null, [place] - [facility] - [place] & [place] 2 13:22:16 Cirrhosis of liver 85083561 Active [address], [place], [address] , [place] - [facility] & [place] 4 10:34:13 Iron deficiency anemia 67823385 Active [address], [place], [address] , [facility] - [facility] & [place] 4 10:34:22 Vascular ectasia of gastric antrum 83398042 Active [address], [place], [address] , [facility] - [facility] & [place] 4 10:34:26 Upper gastrointe stinal bleeding 88777464 Active [address], [place], [address] , [place] - [facility] & [place] 4 10:34:38 Bilateral lower limb edema 648976067 Active [address], [place], [address] , [place] - [facility] & [place] 4 12:54:25 Hepatic encephalop athy 63339388 Active [address], [place], [address] , [place]OLO [facility] & [place] 13:42:22 Problem Notes None recorded. Procedures Surgical History Date Name Laterality Status Provider Name and Address Organization Details Recorded Time 12/17/19 Venipuncture Gastro completed Janell Ruff MANOLO [facility] & [place] 12/16/2024 13:55:02 cholecystectomy completed Deirdre FRENCH [facility] & [place] 10/07/2022 09:58:34 Knee arthroscopy/surgery completed Deirdre FRENCH [facility] & [place] 10/07/2022 09:58:40 Imaging Results Imaging Date Name Status LastModified by Organiz ation Details LastModified Time 12/06/2024 MRI procedure (PROC) completed [address] (Med Record) [address], [place], [address], 2024 10:13:14 12/06/2024 MRI, cervical spine, w/wo contrast [place] [address] Information not available 12/16/2024 11:26:57 12/20/2024 RF, small bowel follow-through study completed [address], [place], [address], 2024 10:13:47 01/09/2025 CT biopsy bone marrow completed [address] - Physical Therapy [address] [facility], [place], [address], 01/09/2025 14:07:33 Procedure Notes None recorded. Medical Equipment None Reported. Allergies Allergen ID Allergen Name Allergen Category Reaction Reaction Severity Criticality Documentation Date Start Date Code Code System Note Provider Name and Address Organization Details Recorded Time 055351 celecoxib medicatio n Not available Not available Not available 08/21/2024 92130 7 RxNorm Other react ions and sever ities : 'Adve rse react ion to subst ance' . Deirdre Olmstead null, [place] [facility] & [place] 14:32:25 17495 Celebrex medicatio n Not available Not available Not available 06/28/2022 95006 7 RxNorm Jerome Aguilera [facility], [place] - [facility] - [place] & [place] 10:41:02 Medications Name Sig Start Date Stop [...] Available Not Available sertraline 100 mg tablet TAKE TWO TABLETS BY MOUTH ONCE A DAY active Not Available Not Available No t Available octreotide acetate 50 mcg/mL injection solution 50 microgram s by injection route. 01/16 completed Not Available Not Available Not Available olanzapine 5 mg tablet TAKE ONE TABLET BY MOUTH AT BEDTIME active Not Available Not Available No t [...] oxycodone-a cetaminophe n 10 mg-325 mg tablet TAKE 1 TABLET BY MOUTH EVERY 8 HOURS NEEDED FOR MODERATE PAIN active Not Available Not Available No t Available tamsulosin 0.4 mg capsule TAKE ONE CAPSULE BY MOUTH EVERY NIGHT active Not Available Not Available No t Available gabapentin 800 mg tablet TAKE ONE TABLET BY MOUTH 3 TIMES A DAY active Not Available Not Available No t Available amlodipine 10 mg tablet TAKE ONE TABLET BY MOUTH ONCE A DAY active Not Available Not Available No t Available cephalexin 500 mg capsule 11/01 completed Not Available Not Available Not Available pantoprazol e 40 mg tablet,martha yed release TAKE ONE TABLET BY MOUTH ONCE A DAY active Not Available Not Available No t Available diphenhydra mine 25 mg capsule 50 mg by oral route. 01/16 completed Not Available Not Available Not Available buspirone 10 mg tablet TAKE TWO TABLETS BY MOUTH 2 TIMES A DAY active Not Available Not Available No t Available promethazin e 25 mg tablet TAKE 1/2 TO 1 TABLET BY MOUTH EVERY 6 HOURS NEEDED FOR NAUSEA/VO MITING active Not Available Not Available No t Available hydroxyzine HCl 25 mg tablet Take 50 mg by oral route. 11/01 completed Not Available Not Available Not Available allopurinol 300 mg tablet TAKE ONE TABLET BY MOUTH EVERY DAY active Not Available Not Available No [...] Available Not Available colchicine 0.6 mg tablet TAKE ONE TABLET BY MOUTH ONCE A DAY active Not Available Not Available [...] 40 mg tablet,tim h resistant,e xtended release TAKE 1 TABLET BY MOUTH EVERY TWELVE HOURS active Not Available Not Available No t [...] Updated DateTime 5 177.8 cm 43.6 kg/m2 800072 g 90 /min 179 mm[Hg] 98 mm[Hg] Jaylan rolon [place] - [facility] & [place] 5 11:24:46 Date Recorded Body height Body mass index (BMI) Body weight Body temperature Oxygen saturation Oxygen saturation in Arterial blood by Pulse oximetry Heart rate Systolic blood pressure Diastolic blood pressure Provider Name and Address Organization Details Last Updated DateTime 5 177.8 cm 44.3 kg/m2 617312. 61 g 97.5 [degF] 97 % 97 % 62 /min 129 mm[Hg] 63 mm[Hg] Deirdre Olmstead [place] - [place] [facility] & [place] 5 13:11:45 Date Recorded Body height Body mass index (BMI) Body weight Body temperature Oxygen saturation Oxygen saturation in Arterial blood by Pulse oximetry Heart rate Heart rate Systolic blood pressure Diastolic blood pressure Provider Name and Address Organization Details Last Updated DateTime 5 177.8 cm 44.3 kg/m2 670741. 25 g 97.6 [degF] 97 % 97 % 60 /min 63 /min 108 mm[Hg] 91 mm[Hg] Janell Ruff [place] - [place] [facility] & [place] 5 13:05:54 Date Recorded Body height Body temperature Oxygen saturation Oxygen saturation in Arterial blood by Pulse oximetry Heart rate Respiratory rate Systolic blood pressure Diastolic blood pressure Provider Name and Address Organization Details Last Updated DateTime 5 177.8 cm 98 [degF] 95 % 95 % 68 /min 24 /min 105 mm[Hg] 48 mm[Hg] Deirdre WOOD [facility] & [place] 5 13:45:00 Social History Question Answer Notes LastModified by Organizat ion Details LastModified Time Tobacco Smoking Status Never Smoker MANOLO Luna [facility] & [place] 10/07/2022 09:58:16 What Is Your Level Of Alcohol Consumption? None [email or web address] Information not available 10/07/2022 What Is Your Level Of Caffeine Consumption? Moderate Information not available 09/12/2024 Do You Use Any Illicit Or Recreational Drugs? No [email or web address] Information not available 10/07/2022 Sex: Unknown Functional Status None recorded. Mental Status None recorded. Family History Relationship Description Onset Age of this Age Resolved Age Notes LastModified by Organization Details LastModified Time Father Father stomac h cancer [email or web address] Not available 10/07/2022 09:57:37 Mother Mother COPD [email or web address] Not available 10/07 09:58:04 Medical History No medical history recorded. Immunizations Vaccine Type Date Status Note Provider Nam e and Address Organization Details Recorded Time Influenza, split virus, quadrivalent, preservative 9 completed MANOLO Luna [facility] & [place] 02/03/2023 09:34:06 COVID-19 vaccine, vector-nr, rS-Ad26, PF, 0.5 mL 1 completed MANOLO Luna [facility] & [place] 02/03/2023 09:34:06 COVID-19 vaccine, vector-nr, rS-Ad26, PF, 0.5 mL 1 completed MANOLO Luna [facility] & [place] 02/03/2023 09:34:06 COVID-19, mRNA, LNP-S, bivalent, PF, 30 mcg/0.3 mL dose 2 completed Deirdre Workman null, [place] - [facility] - [place] & [place] 02/03/2023 09:34:06 Tdap 5 completed Deirdre Workman null, [place] [facility] - [place] & [place] 02/03/2023 09:34:06 Influenza, split virus, trivalent, PF 7 completed Deirdre Workman null, [place] - [facility] - [place] & [place] 02/03/2023 09:34:06 Influenza, split virus, trivalent, PF 3 completed Deirdre Workman null[place] [facility] [place] & [place] 02/03/2023 09:34:06 Hep B, adult 6 completed Deirdre Workman null[place] [facility] [place] & [place] 02/03/2023 09:34:06 Hep B, adult 5 completed Deirdre Workman null, [place] [facility] [place] & [place] 02/03/2023 09:34:06 Hep B, adult 5 completed Deirdre Workman null, [place] - [facility] - [place] & [place] 02/03/2023 09:34:06 Influenza, split virus, quadrivalent, PF 0 completed Deirdre Workman null, [place] [facility] [place] & [place] 02/03/2023 09:34:06 Influenza, split virus, quadrivalent, PF 1 completed Deirdre Workman null, [place] - [facility] - [place] & [place] 02/03/2023 09:34:06 Influenza, split virus, quadrivalent, PF 5 completed Deirdre Workman null, [place] [facility] [place] & [place] 02/03/2023 09:34:06 Influenza, split virus, quadrivalent, PF 7 completed Deirdre Workman null, [place] [facility] - [place] & [place] 02/03/2023 09:34:06 Influenza, split virus, quadrivalent, PF 2 completed Deirdre Workman null, [place] [facility] [place] & [place] 02/03/2023 09:34:06 Influenza, split virus, quadrivalent, PF 6 completed MANOLO Luna - [facility] - [place] & [place] 02/03/2023 09:34:06 Influenza, split virus, trivalent, PF 4 completed Deirdre castrejon, [place] - [facility] - [place] & [place] 12/12/2024 13:08:09 Past Encounters Encounter ID Performer Location Encounter Start Date Encounter Closed Date Diagnosis/Indication Diagnosis SNOMED-CT Code Diagnosis ICD10 Code Diagnosis Note [id number] Bran Gregg PA-C [facility] [address] [place] [address] 06/28/2022 10:17:40 06/28/2022 11:14:24 Leukopenia 34721093 D72.819 Patient labs performed per his primary [...] Hemoglobin 14.2 and hematocrit 42. Platelet count 28477 Discussed leukopenia likely secondary to cirrhosis. Will order additional labs for further evaluation . Will follow up with further recommenda tions. Anemia 257664639 D64.9 Patient labs performed per his primary [...] and oral vitamin B12. Thrombocyt openic disorder 251272865 D69.6 Patient labs performed per his primary [...] Hemoglobin 14.2 and hematocrit 42. Platelet count 78855 Discussed thrombocyt openia likely secondary to cirrhosis. Will order additional labs for further evaluation of thrombocyt openia. Will follow up with further recommenda tions. [id number] Bran Gregg PA-C [facility] [address] [place] [address] 10/07/2022 09:29:52 10/07/2022 10:17:52 Leukopenia 78259770 D72.819 Patient labs performed per his primary [...] Hemoglobin 14.2 and hematocrit 42. Platelet count 07318 Labs on June 28, 2022 with WBC [...] follow up with further recommenda tions. Anemia 715430393 D64.9 Patient labs performed per his primary [...] and oral vitamin B12. Thrombocyt openic disorder 365777145 D69.6 Patient labs performed per his primary [...] Hemoglobin 14.2 and hematocrit 42. Platelet count 59636 Discussed thrombocyt openia likely secondary to cirrhosis. Will order additional labs for further evaluation of thrombocyt openia. Will follow up with further recommenda tions. [id number] Sarthak Vincent MD [facility] [address] [place] [address] 02/03/2023 09:26:31 02/03/2023 10:11:09 Leukopenia 64053647 D72.819 Patient labs performed per his primary [...] Hemoglobin 14.2 and hematocrit 42. Platelet count 61685 Labs on June 28, 2022 with WBC [...] 3.8. Hemoglobin 11.1. Hematocrit 34.3. Platelet count 35545. MCV 91.5. GFR greater than 60. Albumin 3.2. Total protein 7.1. Normal liver function testing. Patient returns on February 03, 2023. Discussed repeat labs today. Offered ultrasound of the abdomen to look at liver and spleen. Patient did not want proceed. Patient has stopped following up with nephrologi st as well. Encourage patient to resume care with other specialist s. Anemia 097214510 D64.9 Patient labs performed per his primary [...] and oral vitamin B12. Thrombocyt openic disorder 671124004 D69.6 Patient labs performed per his primary [...] Hemoglobin 14.2 and hematocrit 42. Platelet count 70214 Discussed thrombocyt openia likely secondary to cirrhosis. Will order additional labs for further evaluation of thrombocyt openia. Will follow up with further recommenda tions. [id number] Slade Lennon PA-C [facility] [address] [facility] [address] [place] [address] 01/23/2024 09:46:05 01/23/2024 10:50:50 Cirrhosis of liver 69415889 K74.60 Iron defic iency anemia 91519925 D50.9 Vascular e ctasia of gastric antrum 40557107 K31.819 Upper gastrointestinal bleeding 81760685 K92.89 Bilateral lower limb edema 978697510 R60.0 [id number] Slade Lennon PA-C [facility] [address] [place] [address] 02/22/2024 13:01:11 02/22/2024 13:41:58 Cirrhosis of liver 99215072 K74.60 Iron defic iency anemia 03210439 D50.9 Vascular e ctasia of gastric antrum 67897368 K31.819 Upper gastrointestinal bleeding 88684212 K92.89 Bilateral lower limb edema 456299613 R60.0 [id number] Bran Gregg PA-C [facility] [address] [place] [address] 05/07/2024 14:15:42 05/07/2024 14:51:08 Leukopenia 84225421 D72.819 Patient labs performed per his primary [...] Hemoglobin 14.2 and hematocrit 42. Platelet count 94583 Labs on June 28, 2022 with WBC [...] 3.8. Hemoglobin 11.1. Hematocrit 34.3. Platelet count 72757. MCV 91.5. GFR greater than 60. Albumin [...] cell count 2.3. Hemoglobin 11.1. Platelet count 76150. Serum iron low at 24 and iron [...] weeks after completion of IV iron. Anemia 383659228 D64.9 Patient labs performed per his primary [...] and oral vitamin B12. Thrombocyt openic disorder 117384854 D69.6 Patient labs performed per his primary [...] Hemoglobin 14.2 and hematocrit 42. Platelet count 20427 Discussed thrombocyt openia likely secondary to cirrhosis. [id number] Slade Lennon PA-C [facility] [address] [facility] [address] [place] [address] 06/18/2024 12:28:35 06/18/2024 13:45:46 Cirrhosis of liver 33960796 K74.60 Iron defic iency anemia 20637301 D50.9 Vascular e ctasia of gastric antrum 17513135 K31.819 Upper gastrointestinal bleeding 98640336 K92.89 Bilateral lower limb edema 117528705 R60.0 Hepatic encephalopathy 13031803 K76.82 [id number] Bran Gregg PA-C [facility] [address] [facility] [address] [place] [address] 06/24/2024 13:00:29 06/24/2024 13:17:45 Anemia 326359454 D64.9 Patient labs performed per his primary [...] taking oral iron and oral vitamin B12. [id number] Bran Gregg PA-C [facility] [address] [facility] [address] [place] [address] 08/21/2024 13:56:48 08/21/2024 15:11:26 Leukopenia 32245946 D72.819 Patient labs performed per his primary [...] Hemoglobin 14.2 and hematocrit 42. Platelet count 28956 Labs on June 28, 2022 with WBC [...] 3.8. Hemoglobin 11.1. Hematocrit 34.3. Platelet count 20074. MCV 91.5. GFR greater than 60. Albumin 3.2. Total protein 7.1. Normal liver function testing. Patient returns on February 03, 2023. Discussed repeat labs today. Patient had labs per his primary care provider on April 29, 2024 with white blood cell count 2.3. Hemoglobin 11.1. Platelet count 57669. Serum iron low at 24 and iron [...] iron is required at this time. Anemia 209401884 D64.9 Patient labs performed per his primary [...] and oral vitamin B12. Thrombocyt openic disorder 779948477 D69.6 Patient labs performed per his primary [...] Hemoglobin 14.2 and hematocrit 42. Platelet count 47615 Discussed thrombocyt openia likely secondary to cirrhosis. [id number] Maxi Goodwin MD [facility] [address] [facility] [address] [place] [address] 09/12/2024 13:28:16 09/12/2024 16:06:00 Atherosclerosis of coronary artery without angina pectoris [id number] 13880 I25.10 remote history of PCI. Continue medical management . Not on any antiplatel et agent due to chronic anemia possibly due to GI blood loss Essential hypertension 02727537 I10 Continue current medication . Keep log Low-salt diet < 2 gm Na/day, Regular exercise Weight loss Heart murmur 86650987 R0 1.1 echo pending [id number] Slade Lennon PA-C [facility] [address] [facility] [address] [place] [address] 11/01/2024 10:44:18 11/01/2024 12:18:22 Cirrhosis of liver 14600162 K74.60 Vascular e ctasia of gastric antrum 34062195 K31.819 Hepatic encephalopathy 90272084 K76.82 Anemia due to blood loss 129306401 D50.0 [id number] Bran Gregg PA-C [facility] [address] [facility] [address] [place] [address] 12/12/2024 13:02:17 12/12/2024 13:26:58 Leukopenia 26017808 D72.819 Patient labs performed per his primary [...] Hemoglobin 14.2 and hematocrit 42. Platelet count 65250 Labs on June 28, 2022 with WBC [...] 3.8. Hemoglobin 11.1. Hematocrit 34.3. Platelet count 60982. MCV 91.5. GFR greater than 60. Albumin 3.2. Total protein 7.1. Normal liver function testing. Patient returns on February 03, 2023. Discussed repeat labs today. Patient returns on December 12, 2024. Patient was hospitaliz ed at [facility] for a gi bleed 09/30/24-. He had varices banded and received 7 units of blood at that time. Follow up EGD and November 13, 2024 with no evidence of blood loss. Labs on August 21, 2024 with pancytopen ia. White blood cell count 2.1. Hemoglobin 6.7 and hematocrit 23.2. Platelet count 39975. serum iron low at 26 and iron [...] iron is required at this time Anemia 940152087 D64.9 Patient labs performed per his primary [...] required at this time. Thrombocyt openic disorder 958437228 D69.6 Patient labs performed per his primary [...] Hemoglobin 14.2 and hematocrit 42. Platelet count 32812 Discussed thrombocyt openia likely secondary to cirrhosis. MRI of lum bar spine abnormal 531665700 R93.7 Patient returns on December 12, 2024. Patient states he has had muscle spasms and tremors for the past 6 months. States he has had multiple falls due to the tremor since spasms. He has difficulty eating with utensils at times due to tremors. He has been following up with his primary care provider for this. He recently had MRI of his back [facility]. Reviewed MRI today and it states there is diffuse abnormal decreased marrow signal which could be secondary to marrow infiltrati on secondary to neoplasm, hematologi gil disease, or myelofibro sis. Multilevel degenerati ve disc disease was also noted. Will order labs for further evaluation today. Discussed bone marrow biopsy for further evaluation . Patient agreeable. Will order. History of esophageal varices [id number] 0558785 Z87.19 Patient returns on December 12, 2024. Patient was hospitaliz ed at [facility] for a gi bleed 09/30/24-. He had varices banded and received 7 units of blood at that time. Follow up EGD and November 13, 2024 with no evidence of blood loss. [id number] Slade Lennon PA-C [facility] [address] [facility] [address] [place] [address] 12/16/2024 12:28:41 12/16/2024 13:52:09 Anemia due to blood loss 176283245 D50.0 Cirrhosis of liver 007 K74.60 Hepatic encephalopathy 07781838 K76.82 Vascular e ctasia of gastric antrum 23828764 K31.819 Abnormal movement 183020 002 G25.9 [id number] Bran Gregg PA-C [facility] [address] [facility] [address] [place] [address] 12/31/2024 13:33:20 12/31/2024 14:30:13 Leukopenia 62199897 D72.819 Patient labs performed per his primary [...] Hemoglobin 14.2 and hematocrit 42. Platelet count 18332 Labs on June 28, 2022 with WBC [...] 3.8. Hemoglobin 11.1. Hematocrit 34.3. Platelet count 30100. MCV 91.5. GFR greater than 60. Albumin 3.2. Total protein 7.1. Normal liver function testing. Patient returns on February 03, 2023. Discussed repeat labs today. Patient was hospitaliz ed at [facility] for a GI bleed 09/30/24-. He had [...] He recently had MRI of his back [facility]. Reviewed MRI and it states there [...] Hemoglobin 6.7 and hematocrit 23.2. Platelet count 94132. serum iron low at 26 and iron saturation 6%. Ferritin 13. Labs on December 12, 2024 with pancytopen ia. White blood cell count 2. Patient is asymptomat ic. Patient denies any signs of infection. Leukopenia likely secondary to cirrhosis. Anemia 079600537 D64.9 Patient labs performed per his primary [...] at 982. Patient was hospitaliz ed at [facility] for a GI bleed 09/30/24-. He had [...] He recently had MRI of his back [facility]. Reviewed MRI and it states there [...] Hemoglobin 6.7 and hematocrit 23.2. Platelet count 06497. serum iron low at 26 and iron saturation 6%. Ferritin 13. Patient returns on December 31, 2024. Bone marrow biopsy was ordered at previous visit but it has not been scheduled yet. Will make sure this is scheduled. Labs on December 12, 2024 with pancytopen ia. White blood cell count 2. Hemoglobin 7.1 and hematocrit 26.8. Platelet count 43711. Serum iron low at 19 and iron [...] should the need arise. Thrombocyt openic disorder 662094354 D69.6 Patient labs performed per his primary [...] Hemoglobin 14.2 and hematocrit 42. Platelet count 26658 Discussed thrombocyt openia likely secondary to cirrhosis. MRI of lum bar spine abnormal 935105549 R93.7 Patient states he has had all over muscle spasms for the past 6 months. States he has had multiple falls due to the muscle spasms. He has difficulty eating with utensils at times due to tremors. He has been following up with his primary care provider for this. He recently had MRI of his back [facility]. Reviewed MRI and it states there [...] this is scheduled. History of esophageal varices [id number] 6622129 Z87.19 Patient returns on December 12, 2024. Patient was hospitaliz ed at [facility] for a gi bleed 09/30/24-. He had [...] Grimm Member ID Guarantor Name 11/01/2024 2 [facility] [employer] - FFS/TRADITION AL Bartolo Hendrickson [id number] aBrtolo Hendrickson 11/01/2024 1 [facility] (MEDICARE REPLACEMENT/A DVANTAGE - HMO) AMRIT Hendrickson [id number] Bartolo Hendrickson 12/12/2024 2 [facility] [employer] CHOICES - FFS/TRADITION AL Bartolo Hendrickson [id number] Bartolo Hendrickson 12/12/2024 1 [facility] (MEDICARE REPLACEMENT/A DVANTAGE - HMO) AMRIT Hendrickson [id number] Bartolo Hendrickson 12/16/2024 2 [facility] HEALTH CHOICES - FFS/TRADITION AL Bartolo Hendrickson [id number] Bartolo Hendrickson 12/16/2024 1 [facility] (MEDICARE REPLACEMENT/A DVANTAGE - HMO) GET[employer]WNP Bartolo Hendrickson [id number] Bartolo Hendrickson 12/31/2024 2 [facility] HEALTH CHOICES - FFS/TRADITION AL Bartolo Hendrickson [id number] Bartolo Hendrickson 12/31/2024 1 [facility] (MEDICARE REPLACEMENT/A DVANTAGE - HMO) GETACHEWNP Bartolo Hendrickson [id number] Bartolo Hendrickson Notes Date Note Type Note Provider Name and Address Organization Details Recorded Time 11/01/2024 text/html CURRENT (11/01/24 ): Mr. 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 He presents to the office today for follow-up from a recent hospitalization at the [facility]. He was air-lifted there earlier this month from [facility] due to upper GI bleed and [...] hematemesis, melena, or hematochezia. Slade Lennon PA-C [address], [place], [address], [place] - [facility] - [place] & [place] 11/01/2024 20:50:25 12/12/2024 text/html 63-year-old male returns [...] Hemoglobin 14.2 and hematocrit 42. Platelet count 76770 Patient does not smoke. Denies any recent [...] 3.8. Hemoglobin 11.1. Hematocrit 34.3. Platelet count 33086. MCV 91.5. GFR greater than 60. Albumin 3.2. Total protein 7.1. Normal liver function testing. Labs on February 03, 2023 with improvement in platelet count 908789. Improvement in white blood cell count 3.4. [...] cell count 2.3. Hemoglobin 11.1. Platelet count 24367. Serum iron low at 24 and iron [...] December 12, 2024. Patient was hospitalized at [facility] for a gi bleed 09/30/24-10/03/24. He had [...] He recently had MRI of his back [facility]. Reviewed MRI today and it states [...] Hemoglobin 6.7 and hematocrit 23.2. Platelet count 45923. serum iron low at 26 and iron [...] required at this time. Bran Gregg PA-C [address], [place], [address], [place] - [place] - [place] 12/12/2024 14:04:02 12/16/2024 text/html PREVIOUS ( 5): Mr. 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 He presents to the office today for follow-up from a recent hospitalization at the [facility]. He was air-lifted there earlier this month from [facility] due to upper GI bleed and [...] back of his legs. Slade Lennon PA-C [address], [place], [address], [place] - [place] - [place] 12/16/2024 15:20:09 12/31/2024 text/html 63-year-old male returns [...] Hemoglobin 14.2 and hematocrit 42. Platelet count 34727 Patient does not smoke. Denies any recent [...] 3.8. Hemoglobin 11.1. Hematocrit 34.3. Platelet count 66855. MCV 91.5. GFR greater than 60. Albumin 3.2. Total protein 7.1. Normal liver function testing. Labs on February 03, 2023 with improvement in platelet count 772722. Improvement in white blood cell count 3.4. [...] cell count 2.3. Hemoglobin 11.1. Platelet count 28062. Serum iron low at 24 and iron [...] applied May 2024. Patient was hospitalized at [facility] for a GI bleed 09/30/24-10/03/24. He had [...] He recently had MRI of his back [facility]. Reviewed MRI and it states there [...] Hemoglobin 6.7 and hematocrit 23.2. Platelet count 94978. serum iron low at 26 and iron saturation 6%. Ferritin 13. Patient returns on December 31, 2024. Bone marrow biopsy was ordered at previous visit but it has not been scheduled yet. Will make sure this is scheduled. Labs on December 12, 2024 with pancytopenia. White blood cell count 2. Hemoglobin 7.1 and hematocrit 26.8. Platelet count 14528. Serum iron low at 19 and iron [...] should the need arise. Bran Gregg PA-C [address], [place], [address], [place] - [place] 12/31/2024 14:44:31
[2025-01-17 11:21] LABS: Ammonia 15 umol/L (9-30)
[2025-01-17 12:05] LABS: Creatine Kinase 3795 U/L (55-170)
[2025-01-17 12:25] LABS: Vitamin B12 664 pg/mL (239-931)
[2025-01-21 19:09] LABS: Vitamin B1 88.2 nmol/L (66.5-200.0)
== END 2025-01-17 23:59 | disposition home or self-care (01) ==
LOC: LAB 10:51
PROVIDERS: PCP Family Medicine; Visit Provider Specialist
DX: K76.6 Portal hypertension (principal); E88.9 Metabolic disorder, unspecified; R25.1 Tremor, unspecified; K74.60 Unspecified cirrhosis of liver; K75.81 Nonalcoholic steatohepatitis (NASH); N18.2 Chronic kidney disease, stage 2 (mild); M48.061 Spinal stenosis, lumbar region without neurogenic claudication; D61.818 Other pancytopenia; E66.01 Morbid (severe) obesity due to excess calories; Z68.41 Body mass index [BMI] 40.0-44.9, adult
CPT/HCPCS: 36415; 82085; 82140; 82550; 82607; 84425

== ENCOUNTER 2025-02-21 08:57 | Outpatient (CLI) | payer MEDICARE, MEDICAID, SELFPAY ==
--- OUTSIDE RECORDS SUMMARY | 2025-02-21 09:05 | XMS_ITS | Continuity of Care Document ---
Author Organization [facility] Phone Care Team Providers Care Employment Legal Assistant Name Role Phone LEEANN RUSSELL Admitting Unavailable AGUSTIN WARD Unavailable AGUSTIN WARD Primary Care LEEANN RUSSELL Primary Attending Unavailable ALLERGIES AND ADVERSE REACTIONS ALLERGIES AND ADVERSE REACTIONS Code System Allergy Substance Adverse Reaction Date Reaction (Severity) Comment Status Reported By Updated By [id number] RXNorm Celebrex Adverse reaction to substance fluid retention active [id number] on February 05, 2025 4:55:29 AM [facility] FAMILY HISTORY RELATION: Father Status: Cause of : Malignant tumor of stomach Age at : 60 SNOMED-CT Diagnosis Age At Onset [id number] Hypertensive disorder [id number] Smoker [id number] Alcoholism RELATION: Mother Status: Cause of : Unknown Age at : 74 SNOMED-CT Diagnosis Age At Onset [id number] Chronic obstructive lung disease RESULTS Patient: GREG Rees Date of : [birth year] 1 LABORATORY RESULTS ORDER 100: CBC AUTO W DIFF ( LOINC: 47656-5) ORDER DATE: February 05, 2025 4:36:00 AM UT Specimen Source: EDTA Specimen Type: Blood specime n with EDTA PERFORMING LAB: [address] [id number] Result Comment: Final Result Date: February 05, 2025 5:24:00 AM UT (TECH: AY) LOINC TEST FLAG RESULT REFERENCE RANGE UPDA KILO BY 6690-2 Leukocytes [#/volume ] in Blood by Automated count L 3.4 K/ul 4.0 K/ul - 10.5 K/ul February 05, 2025 5:24:00 AM UT (TECH: AY) 789-8 Erythrocytes [#/volume] in Blood by Automated count L 3.9 M/mm3 4.7 M/mm3 - 6.1 M/mm3 February 05, 2025 5:24:00 AM UT (TECH: AY) 718-7 Hemoglobin [Mass/volume] in Blood L 9.6 gm/dl 13.5 gm/dl - 18.0 gm/dl February 05, 2025 5:24:00 AM UT (TECH: AY) 96922-5 Hematocrit [Volume Fraction] of Blood L 33.1 % 42.0 % - 52.0 % February 05, 2025 5:24:00 AM UT (TECH: AY) 787-2 Erythrocyte mean corpuscular volume [Entitic volume] by Automated count N 85.3 fl 78 fl - 100 fl February 05, 2025 5:24:00 AM [facility] (TECH: AY) 785-6 Erythrocyte mean corpuscular hemoglobin [Entitic mass] by Automated count L 24.7 pg 27 pg - 31 pg February 05, 2025 5:24:00 AM [facility] (TECH: AY) 786-4 Erythrocyte mean corpuscular hemoglobin concentration [Mass/volume] by Automated count L 29.0 g/dl 32 g/dl - 36 g/dl February 05, 2025 5:24:00 AM UT (TECH: AY) 10797-3 Erythrocyte distribution width [Ratio] H 21.5 % 11.5 % - 14.0 % February 05, 2025 5:24:00 AM [facility] (TECH: AY) 777-3 Platelets [#/volume] in Blood by Automated count L 111 K/ul 150 K/ul - 450 K/ul February 05, 2025 5:24:00 AM [facility] (TECH: AY) 81403-1 Platelet mean volume [Entitic volume] in Blood by Automated count H 11.0 fl 6 fl - 9.5 fl February 05, 2025 5:24:00 AM UT (TECH: AY) 20102-1 Neutrophils/100 leukocytes in Blood H 75.0 % 43 % - 65 % February 05, 2025 5:24:00 AM UT (TECH: AY) 736-9 Lymphocytes/100 leukocytes in Blood by Automated count L 14.5 % 20.5 % - 45.5 % February 05, 2025 5:24:00 AM UT (TECH: AY) 5905-5 Monocytes/100 leukocytes in Blood by Automated count N 8.4 % 5.5 % - 11.7 % February 05, 2025 5:24:00 AM UTC (TECH: AY) 713-8 Eosinophils/100 leukocytes in Blood by Automated count N 1.5 % 0.9 % - 2.9 % February 05, 2025 5:24:00 AM UTC (TECH: AY) 706-2 Basophils/100 leukocytes in Blood by Automated count N 0.3 % 0.2 % - 1.0 % February 05, 2025 5:24:00 AM UTC (TECH: AY) 72830-5 Immature granulocytes/100 leukocytes in Blood by Automated count N 0.3 % 0.0 % - 0.8 % February 05, 2025 5:24:00 AM UTC (TECH: AY) 20590-4 Nucleated cells [#/volume] in Blood N 0.0 % February 05, 2025 5:24:00 AM UTC (TECH: AY) 03477-5 Neutrophils [#/volume] in Blood N 2.6 K/uL 2.2 K/uL - 4.8 K/uL February 05, 2025 5:24:00 AM UTC (TECH: AY) 731-0 Lymphocytes [#/volume] in Blood by Automated count L 0.5 CELL/MCL 1.3 CELL/MCL - 2.9 CELL/MCL February 05, 2025 5:24:00 AM UT (TECH: AY) 742-7 Monocytes [#/volume] in Blood by Automated count N 0.3 CELL/MCL 0.3 CELL/MCL - 0.8 CELL/MCL February 05, 2025 5:24:00 AM UTC (TECH: AY) 711-2 Eosinophils [#/volume] in Blood by Automated count N 0.1 CELL/MCL 0 CELL/MCL - 0.2 CELL/MCL February 05, 2025 5:24:00 AM UTC (TECH: AY) 704-7 Basophils [#/volume] in Blood by Automated count N 0.0 CELL/MCL 0.0 CELL/MCL - 1.0 CELL/MCL February 05, 2025 5:24:00 AM UTC (TECH: AY) 10203-4 Immature granulocyte s [#/volume] in Blood N 0.01 K/ul February 05, 2025 5:24:00 AM UTC (TECH: AY) 55572-3 Nucleated cells [#/volume] in Blood N 0.00 K/uL February 05, 2025 5:24:00 AM UT (TECH: AY) 01971-5 Manual Differential panel - Blood N NO February 05, 2025 5:24:00 AM UT (TECH: AY) 778-1 Platelets [#/volume] in Blood by Manual count N SL DECREASED ADEQUATE February 05, 2025 5:24:00 AM UT (TECH: AY) 9317-9 Platelet adequacy [Presence] in Blood by Light microscopy N NORMAL NORMAL February 05, 2025 5:24:00 AM [facility] (TECH: AY) 81100-9 Erythrocytes [Morphology] in Blood by Automated count ABNORMAL NORMAL February 05, 2025 5:24:00 AM [facility] (TECH: AY) 702-1 Anisocytosis [Presence] in Blood by Light microscopy N 2+ NONE SEEN February 05, 2025 5:24:00 AM [facility] (TECH: AY) 779-9 Poikilocytosis [Presence] in Blood by Light microscopy N SLIGHT NONE SEEN February 05, 2025 5:24:00 AM UT (TECH: AY) 728-6 Hypochromia [Presence] in Blood by Light microscopy N 1+ NONE SEEN February 05, 2025 5:24:00 AM [facility] (TECH: AY) ORDER 200: COMP METABOLIC PA RUDDY (LOINC: 85575-7) ORDER DATE: February 05, 2025 4:36:00 AM UT Specimen Source: PLASMA Specimen Type: Plasma specim en PERFORMING LAB: [address] [id number] Result Comment: Final Result Date: February 05, 2025 5:20:00 AM UT (TECH: ME) LOINC TEST FLAG RESULT REFERENCE RANGE UPDA KILO BY 2951-2 Sodium [Moles/volume ] in Serum or Plasma N 139 mmol/L 136 mmol/L - 145 mmol/L February 05, 2025 5:01:00 AM UT (TECH: ME) 2823-3 Potassium [Moles/volume] in Serum or Plasma L 3.3 mmol/L 3.6 mmol/L - 5.0 mmol/L February 05, 2025 5:01:00 AM UT (TECH: [employer]) 5-0 Chloride [Moles/volu me] in Serum or Plasma N 101 mmol/L 98 mmol/L - 107 mmol/L February 05, 2025 5:01:00 AM [facility] (TECH: ME) 8-9 Carbon dioxide, tota l [Moles/volume] in Serum or Plasma H 33.8 mmol/L 21.0 mmol/L - 32.0 mmol/L February 05, 2025 5:01:00 AM UT (TECH: [employer]) 05344-6 Anion gap in Blood N 7.5 M 2024 5:01:00 AM UT (TECH: [employer]) 2345-7 Glucose [Mass/volume ] in Serum or Plasma N 102 mg/dl 70 mg/dl - 120 mg/dl February 05, 2025 5:01:00 AM [facility] (TECH: [employer]) 6299-2 Urea nitrogen [Mass/volume] in Blood H 26 mg/dL 7 mg/dL - 18 mg/dL February 05, 2025 5:01:00 AM UT (TECH: [employer]) 01142-0 Creatinine [Moles/volume] in Blood H 1.7 mg/dL 0.6 mg/dL - 1.3 mg/dL February 05, 2025 5:01:00 AM [facility] (TECH: [employer]) 06768-3 Glomerular filtratio n rate/1.73 sq M.predicted by Creatinine-based formula (MDRD) L 45 mlpermin 60 mlpermin February 05, 2025 5:01:00 AM [facility] (TECH: [employer]) 37546-7 Osmolality of Serum or Plasma by calculated by sum of electrolytes N 294 mosm/kg 275 mosm/kg - 301 mosm/kg February 05, 2025 5:01:00 AM UT (TECH: [employer]) 2885-2 Protein [Mass/volume ] in Serum or Plasma N 6.7 g/dl 6.4 g/dl - 8.2 g/dl February 05, 2025 5:20:00 AM [facility] (TECH: [employer]) 1751-7 Albumin [Mass/volume ] in Serum or Plasma L 3.1 g/dl 3.4 g/dl - 5.0 g/dl February 05, 2025 5:20:00 AM UT (TECH: PR) 2336-6 Globulin [Mass/volum e] in Serum N 3.6 February 05, 2025 5:20:00 AM [facility] ([employer]) 1759-0 Albumin/Globulin [Ma ss Ratio] in Serum or Plasma N 0.9 0.7 - 2 February 05, 2025 5:20:00 AM [facility] ([employer]) 80953-3 Calcium [Mass/volume ] in Serum or Plasma N 8.6 mg/dl 8.5 mg/dl - 10.5 mg/dl February 05, 2025 5:01:00 AM [facility] ([employer]) 1975-2 Bilirubin.total [Mass/volume] in Serum or Plasma N 0.80 mg/dL 0.10 mg/dL - 1.00 mg/dL February 05, 2025 5:20:00 AM [facility] ([employer]) 1920-8 Aspartate aminotransferase [Enzymatic activity/volume] in Serum or Plasma H 39 U/L 0 U/L - 37 U/L February 05, 2025 5:20:00 AM [facility] ([employer]) 1742-6 Alanine aminotransferase [Enzymatic activity/volume] in Serum or Plasma N 34 U/L 0 U/L - 65 U/L February 05, 2025 5:20:00 AM [facility] ([employer]) 6768-6 Alkaline phosphatase [Enzymatic activity/volume] in Serum or Plasma H 178 U/L 46 U/L - 116 U/L February 05, 2025 5:20:00 AM [facility] ([employer]: PR) ORDER 300: TROPONIN I QUANT HIGH SENS. (LOINC: 58186-3) ORDER DATE: February 05, 2025 4:36:00 AM [facility] Specimen Source: PLASMA Specimen Type: Plasma specim en PERFORMING LAB: [address] [id number] Result Comment: Final Result Date: February 05, 2025 5:22:00 AM [facility] ([employer]: PR) LOINC TEST FLAG [place] [address]-2 Troponin I.cardiac [Mass/volume] in Serum or Plasma HH 224 ng/L 0 ng/L - 76 ng/L February 05, 2025 5:22:00 AM [facility] (TECH: PR) ORDER 400: CREATINE KINASE C K (LOINC: 2157-6) ORDER DATE: February 05, 2025 4:36:00 AM UTC Specimen Source: PLASMA Specimen Type: Plasma specim en PERFORMING LAB: [address] [id number] Result Comment: Final Result Date: February 05, 2025 5:20:00 AM UTC (TECH: ME) LOINC TEST FLAG RESULT REFERENCE RANGE UPDA KILO BY 2157-6 Creatine kinase [Enzymatic activity/volume] in Serum or Plasma N 72 IU/l 35 IU/l - 232 IU/l February 05, 2025 5:20:00 AM UTC (TECH: ME) ORDER 500: URINALYSIS REFLEX MICROSCOPIC (LOINC: 70626-6) ORDER DATE: February 05, 2025 4:36:00 AM UTC Specimen Source: URINE Specimen Type: Urine specime n PERFORMING LAB: [address] [id number] Result Comment: Final Result Date: February 05, 2025 4:54:00 AM UTC (TECH: AY) LOINC TEST FLAG RESULT REFERENCE RANGE UPDA KILO BY 5778-6 Color of Urine N LT YELLOW YELLOW January 4:54:00 AM UTC (TECH: AY) 5767-9 Appearance of Urine N CLEAR CLEAR February 05, 2025 4:54:00 AM UTC (TECH: AY) 5792-7 Glucose [Mass/volume] in Urine by Test strip N norm NORMAL February 05, 2025 4:54:00 AM UTC (TECH: AY) 04200-3 Bilirubin.total [Mass/volume] in Urine by Automated test strip N NEGATIVE NEGATIVE February 05, 2025 4:54:00 AM UTC (TECH: AY) 5797-6 Ketones [Mass/volume] in Urine by Test strip N NEGATIVE NEGATIVE February 05, 2025 4:54:00 AM UTC (TECH: AY) 2965-2 Specific gravity of Urine L 1.010 1.016 - 1.022 February 05, 2025 4:54:00 AM UTC (TECH: AY) 18678-9 Erythrocytes [#/volume] in Urine by Automated test strip N NEGATIVE NEGATIVE February 05, 2025 4:54:00 AM UTC (TECH: AY) 78475-9 pH of Urine by Automated test strip N 6 5 - 9 February 05, 2025 4:54:00 AM UTC (TECH: AY) 95619-1 Protein [Presence] in Urine by Test strip N TNP NEGATIVE February 05, 2025 4:54:00 AM UTC (TECH: AY) 34038-0 Urobilinogen [Mass/volume] in Urine by Automated test strip N norm NORMAL February 05, 2025 4:54:00 AM UTC (TECH: AY) 35605-4 Nitrate [Presence] in Urine N NEGATIVE NEGATIVE February 05, 2025 4:54:00 AM UTC (TECH: AY) 72149-2 Leukocytes [#/volume] in Urine by Test strip N NEGATIVE NEGATIVE February 05, 2025 4:54:00 AM UT (TECH: AY) 87186-2 Urinalysis dipstick W Reflex Culture panel - Urine N NO February 05, 2025 4:54:00 AM UT (TECH: AY) ORDER 600: NT-PRO BNP (LOINC : 77497-7) ORDER DATE: February 05, 2025 4:36:00 AM UT Specimen Source: PLASMA Specimen Type: Plasma specim en PERFORMING LAB: [address] [id number] Result Comment: Final Result Date: February 05, 2025 5:20:00 AM UT (TECH: PR) LOINC TEST [place] [address]-3 Natriuretic peptide B [Mass or Moles/volume] in Serum or Plasma H 143.00 PG/ML 0.00 PG/ML - 125.00 PG/ML February 05, 2025 5:20:00 AM UT (TECH: PR) ORDER 1100: TROPONIN I FOLLO W-UP HIGH SENS (LOINC: 04346-4) ORDER DATE: February 05, 2025 5:30:00 AM UT Specimen Source: PLASMA Specimen Type: Plasma specim en PERFORMING LAB: [address] [id number] Result Comment: Final Result Date: February 05, 2025 7:04:00 AM UT (TECH: PR) LOINC TEST [place] [address]-9 Troponin I.cardiac [Mass/volume] in Serum or Plasma HH 202 ng/L 0 ng/L - 76 ng/L February 05, 2025 7:04:00 AM UTC (TECH: ME) ORDER 1300: AMMONIA (LOINC: 57913-9) ORDER DATE: February 05, 2025 6:34:00 AM UTC Specimen Source: PLASMA Specimen Type: Plasma specim en PERFORMING LAB: [address] [id number] Result Comment: Final Result Date: February 05, 2025 7:12:00 AM UTC (TECH: PR) LOINC TEST [place] [address]-4 Ammonia [Mass/volume ] in Unspecified specimen H 35 umol/L 11 umol/L - 32 umol/L Ma y 2024 7:12:00 AM UTC (TECH: PR) LABORATORY NARRATIVE RESULTS Information is not available RADIOLOGY RESULTS ORDER 800: CT ABD PEL W/O (L OINC: 11602-3) ORDER DATE: February 05, 2025 4:36:00 AM UT PERFORMING LAB: [address] [id number] Final Result Date: February 05 6:01:[address] [address] Name: BARTOLO GARZA Exam Date: 02/05/2025 : 1960 Age 64 years Gender: M Physician: LEEANN RUSSELL Facility: [facility] Facility HSV: Outpatient Exam: CT ABD PEL W/O FINAL REPORT TECHNIQUE: null CLINICAL HISTORY: Pain with trauma fall lbp COMPARISON: null FINDINGS: CT abdomen and pelvis without contrast Comparison: None Findings: The lung bases are clear. Cirrhosis. Postcholecystectomy. Splenomegaly. Splenule. Atrophic pancreas. Nonobstructive scattered 2 mm calculi in the left kidney. Duodenal diverticulum along the 2nd segment. Large colonic stool burden. No bowel obstruction. Fat containing inguinal hernias. Scattered colonic diverticulosis without diverticulitis or colitis. No evidence of the appendicitis. Distended bladder. Osteopenia with diffuse multilevel spondylosis. IMPRESSION: IMPRESSION: 1. Cirrhosis with sequela of portal hypertension. 2. Nonobstructive scattered 2 mm calculi in the left kidney. Authenticated and Electronically Signed by Santana Greer 02/05/2025 02:01:18 AMEASTERN Dictated By: Santana Greer Transcribed By: Transcribed On: 02/05/2025 2:01 AM Electronically signed by: Santana Greer 02/05/2025 Thank you for referring BARTOLO GARZA to [facility]. Legally authenticated by UCHE SAAVEDRA 2025-02-05 02:01:18 ORDER 900: CT LUMBAR SPINE W /O (LOINC: 80311-9) ORDER DATE: February 05, 2025 4:36:00 AM [facility] PERFORMING LAB: [address] [id number] Final Result Date: February 05 6:24:08 AM [facility] [address] [address] Name: BARTOLO GARZA Exam Date: 02/05/2025 : 1960 Age 64 years Gender: M Physician: LEEANN RUSSELL Facility: [facility] Facility HSV: Outpatient Exam: CT LUMBAR SPINE W/O FINAL REPORT TECHNIQUE: null CLINICAL HISTORY: LBP (lower back pain) with Trauma/Injury COMPARISON: null FINDINGS: CT lumbar spine without contrast Comparison: None Findings: Vertebral alignment is within normal limits. No acute fractures or dislocations. Osteopenia. Multilevel spondylosis with diffuse osteophytosis, facet arthropathy and degenerative disc disease. Multilevel Schmorl's nodes, for example prominent of the superior endplate of L5. Congenitally diffuse spinal canal narrowing with superimposed disc bulges. For example moderate to severe spinal canal narrowing at L3-L4. Multilevel foraminal stenoses. Please see same day CT abdomen pelvis report. IMPRESSION: IMPRESSION: Chronic changes without acute findings. Moderate to severe spinal canal narrowing at L3-L4. Authenticated and EASTERN Dictated By: Santana Greer Transcribed By: Transcribed On: 02/05/2025 2:24 AM Electronically signed by: Santana Greer 02/05/2025 Thank you for referring BARTOLO GARZA to [facility]. Legally authenticated by UCHE SAAVEDRA 2025-02-05 02:24:08 ORDER 1000: CHEST PORTABLE ( LOINC: 35873-1) ORDER DATE: February 05, 2025 4:36:00 AM [facility] PERFORMING LAB: [address] [id number] Final Result Date: February 05 6:37:[address] [address] Name: BARTOLO GARZA Exam Date: 02/05/2025 : 1960 Age 64 years Gender: M Physician: LEEANN RUSSELL Facility: [facility] Facility HSV: Outpatient Exam: CHEST PORTABLE FINAL REPORT TECHNIQUE: null CLINICAL HISTORY: Rib Pain Left Side COMPARISON: null FINDINGS: 1 view chest x-ray Comparison: DX/DOC - CHEST PORTABLE - 08/26/24 14:33 EST Findings: No consolidation or effusion. Similar prominent/enlarged cardiac silhouette. Possible 3rd and 4th left lateral rib fractures with irregularities. IMPRESSION: IMPRESSION: Question 3rd and 4th left rib fractures, should be correlated with point tenderness. Authenticated and EASTERN Dictated By: Santana Greer Transcribed By: Transcribed On: 02/05/2025 2:37 AM Electronically signed by: Santana Greer 02/05/2025 Thank you for referring BARTOLO GARZA to [facility]. Legally authenticated by UCHE SAAVEDRA 2025-02-05 02:37:17 PATHOLOGY NARRATIVE RESULTS Information is not available MICROBIOLOGY RESULTS No Micro Labs/Results Exist for Patient BLOOD ADMIN RESULTS Information is not available MEDICATIONS HOME MEDICATIONS Status RXNORM [facility] Medication Dose Route Frequency Dates Comments Reported By Updated By Active 723112 02044 00081 5 Allopurinol Tablet 300 MG 1.0 TAB ORAL DAILY Last Dose: [id number] on February 05, 2025 4:55:29 AM [facility] Active 934756 67440 58967 0 amLODIPine Besylate Tablet 10 MG 1.0 TAB ORAL DAILY Last Dose: [id number] on February 05, 2025 4:55:30 AM UT Active 883221 70497 44009 0 buPROPion HCl ER (SR) Tablet Extended Release 12 Hour 150 MG 1.0 TAB ORAL TID Last Dose: [id number] on February 05, 2025 4:55:30 AM UTC Active 939982 74587 44417 1 busPIRone HCl Tablet 10 MG 1.0 TAB ORAL BID Last Dose: [id number] on February 05, 2025 4:55:31 AM UTC Active 5693627 87749 83656 1 Colchicine Capsule 0.6 MG 0.0 ORAL DAILY Last Dose: [id number] on February 05, 2025 4:55:31 AM UTC Active 454394 58655 10371 5 Furosemide Tablet 20 MG 0.0 ORAL DAILY Last Dose: [id number] on February 05, 2025 4:55:31 AM UT Active 411246 17719 38312 1 Gabapentin Tablet 800 MG 1.0 TAB ORAL TID Last Dose: [id number] on February 05, 2025 4:55:31 AM UTC Active 446630 22671 84355 2 hydrOXYzine Pamoate Capsule 50 MG 1.0 CAP ORAL DAILYPRN Last Dose: [id number] on February 05, 2025 4:55:31 AM UTC Active 695040 86631 75856 0 OLANZapine Tablet 5 MG 0.0 ORAL DAILY Last Dose: [id number] on February 05, 2025 4:55:31 AM UT Active 5635369 43643 08561 1 oxyCODONE-Ac etaminophen Tablet 10-325 MG 1.0 TAB ORAL DAILYPRN Last Dose: [id number] on February 05, 2025 4:55:32 AM UT Active 814009 64838 65631 0 Pantoprazole Sodium Tablet Delayed Release 40 MG 1.0 TAB ORAL DAILY Last Dose: [id number] on February 05, 2025 4:55:32 AM UTC Active 121322 61285 47522 5 Sertraline HCl Tablet 100 MG 0.0 ORAL DAILY Last Dose: [id number] on February 05, 2025 4:55:32 AM UT Active 941611 65531 84908 9 SUMAtriptan Succinate Tablet 100 MG 0.0 ORAL DAILY Last Dose: [id number] on February 05, 2025 4:55:32 AM UT Active 318989 97158 03023 1 Tamsulosin HCl Capsule 0.4 MG 1.0 TAB ORAL DAILY Last Dose: [id number] on February 05, 2025 4:55:32 AM UT Active 135745 16226 12561 7 tiZANidine HCl Capsule 4 MG 1.0 TAB ORAL DAILYPRN Last Dose: [id number] on February 05, 2025 4:55:33 AM UT DISCHARGE MEDICATIONS Status RXNORM NDC Medication Dose Route Frequency Dates Comments Physician Updated By No Discharge Medication Info rmation Available INPATIENT MEDICATIONS Status RXNORM ND Medication Dose Route Frequency Rat e Quantity Dates Comments Physician Updated By No Inpatient Medication Info rmation Available SOCIAL HISTORY SOCIAL HISTORY SNOMED-CT Social History Element Description Effective Dates Offered Cessation Comment UpdatedBy [id number] Current Tobacco smoking status Unknown If Ever Smoked [id number] on February 05, 2025 4:56:06 AM [facility] [id number] Historical Tobacco smoking status Never Smoked [id number] on November 12, 2024 5:05:01 PM [facility] SOCIAL HISTORY - Gender Sex: Male [...] value for each vital sign as of February 07, 2025 10:08:52 AM [facility] Loinc Code Vital Sign Activity Date Result Updated By 8302-2 Body height February 05, 2025 4:36 :58 AM UT 180.34 cm (71.0 in) [id number] on February 05, 2025 4:36:58 AM [facility] 32002-9 Body mass index (BMI ) [Ratio] February 05, 2025 4:36:58 AM UT 39.357 kg/m2 [id number] on February 05, 2025 4:36:58 AM [facility] 3140-1 Body Surface Area Derived From Formula February 05, 2025 4:36:58 AM UT 2.4412 m2 [id number] on February 05, 2025 4:36:58 AM UT 8310-5 Body temperature February 05, 2025 4:2 7:00 AM UTC 98.7 [degF] [id number] on February 05, 2025 4:36:57 AM UTC 70164-4 Body weight Measured February 05, 2025 4:36:58 AM UTC 128.0 kg (282.0 lb) [id number] on February 05, 2025 4:36:58 AM UTC 8462-4 Diastolic blood pressure February 05, 2025 6:00:00 AM UTC 73.0 mm[Hg] [id number] on February 05, 2025 6:14:45 AM UTC 8867-4 Heart rate February 05, 2025 5:55 :00 AM UTC 92 /min [id number] on February 05, 2025 6:14:44 AM UTC 93204-6 Oxygen saturation in Arterial blood by Pulse oximetry February 05, 2025 5:55:00 AM UTC 95.0 % [id number] on February 05, 2025 6:14:44 AM UTC 9279-1 Respiratory rate February 05, 2025 4:2 7:00 AM UTC 20 /min [id number] on February 05, 2025 4:36:57 AM UTC 8480-6 Systolic blood pressure February 05, 2025 6:00:00 AM UTC 159.0 mm[Hg] [id number] on February 05, 2025 6:14:45 AM UT PEDIATRIC GROWTH CHART - VITAL SIGNS [...] available. ENCOUNTERS ENCOUNTER INFORMATION Reason for Visit FALL INJURY/BACK DEVENDRA N Admission February 05, 2025 4:30:[address] [address] Discharge February 05, 2025 8:34:00 AM UT DISCH ARGED TO HOME OR SELF CARE ENCOUNTER DIAGNOSES Notes information is not dai ilable. Code System Diagnosis Onset Date Diagnosis information is not available. ABSTRACT DIAGNOSES Code System Diagnosis Updated By R53.1 ICD10 WEAKNESS [id number] on February 07, 2025 10:08:23 AM UT R10.9 ICD10 UNSPECIFIED ABDOMINAL PAIN D [id number] on February 07, 2025 10:08:23 AM UT M54.9 ICD10 DORSALGIA, UNSPECIFIED [id number] 33 on February 07, 2025 10:08:23 AM UT D64.9 ICD10 ANEMIA, UNSPECIFIED [id number] on February 07, 2025 10:08:23 AM UT S30.0XXA ICD10 CONTUSION OF LOW ER BACK AND PELVIS, INITIAL ENCOUNTER [id number] on February 07, 2025 10:08:23 AM UT N28.9 ICD10 DISORDER OF KIDN EY AND URETER, UNSPECIFIED [id number] on February 07, 2025 10:08:23 AM [facility] R79.89 ICD10 OTHER SPECIFIED ABNORMAL FINDINGS OF BLOOD CHEMISTRY [id number] on February 07, 2025 10:08:23 AM UT R29.6 ICD10 REPEATED FALLS [id number] on 2024 10:08:23 AM [facility] K74.60 ICD10 UNSPECIFIED CIRRHOSIS OF SACHA ER [id number] on February 07, 2025 10:08:23 AM UT Z88.1 ICD10 ALLERGY STATUS T O OTHER ANTIBIOTIC AGENTS [id number] on February 07, 2025 10:08:23 AM [facility] F41.9 ICD10 ANXIETY DISORDER, UNSPECIFIE D [id number] on February 07, 2025 10:08:23 AM [facility] G89.29 ICD10 OTHER CHRONIC PAIN [id number] o n February 07, 2025 10:08:23 AM [facility] M54.9 ICD10 DORSALGIA, UNSPECIFIED [id number] on February 07, 2025 10:08:23 AM [place] K21.9 ICD10 GASTRO-ESOPHAGEA L REFLUX DISEASE WITHOUT ESOPHAGITIS [id number] on February 07, 2025 10:08:23 AM [place] M10.9 ICD10 GOUT, UNSPECIFIED [id number] on February 07, 2025 10:08:23 AM [facility] Z79.899 ICD10 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 FILLER (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) DRUG THERAPY [id number] on February 07, 2025 10:08:23 AM [place] W18.30XA ICD10 FALL ON SAME LEV EL, UNSPECIFIED, INITIAL ENCOUNTER [email or web address] on February 07, 2025 10:08:23 AM [facility] CARE TEAM Care Employment Legal Assistant Role LEEANN RUSSELL Admitting AGUSTIN WARD Referring AGUSTIN WARD Primary Care LEEANN RUSSELL Primary Attending CARE TEAM CARE recreation coordinator Role on Team Status Start Date End Date Update d By SYLVIA MEDINA Referring normal February 05, 2025 4:55:47 AM UT February 05, 2025 8:34:00 AM UT [id number] on February 05, 2025 4:55:47 AM UT YVONNE MEDINA Attending normal February 05, 2025 4:55:47 AM UT February 05, 2025 8:34:00 AM UT [id number] on February 05, 2025 4:55:47 AM UT YVONNE MEDINA Admitting normal February 05, 2025 4:55:47 AM UT February 05, 2025 8:34:00 AM UT [id number] on February 05, 2025 4:55:47 AM [facility] SYLVIA MEDINA PCP normal February 05, 2025 4:30:57 AM UT February 05, 2025 8:34:00 AM UT [id number] on February 05, 2025 4:55:47 AM [facility]
--- OUTSIDE RECORDS SUMMARY | 2025-02-21 09:05 | XMS_ITS | Continuity of Care Document ---
Author Organization [facility] Address [address] [place] [address] Care Team Providers Care Clinic Administrator Name Role Phone AGUSTIN WARD Primary Care Provider Assessment No assessment recorded. Plan of Treatment Reminders Order Date Submit Date Provider Last Modified By Organization Details Last Modified Time Details Appointments OV EST 15 2024 02:00P M Sarthak Vincent MD Not available Not available Not available Establish ed Visit 15 min 2024 01:00P M Slade Lennon PA-C Not available Not available Not available Lab CMP, serum or plasma 2024 025 [email or web address] [facility], [address], [place], [address], 01/07/2025 08:45:30 CBC w/ auto diff 2024 025 JANA [facility], [address], [place], [address], 12/31/2024 15:15:43 type + screen, blood 2024 025 [email or web address] [facility], [address], [place], [address], 01/07/2025 08:45:30 Referral None recorded. Procedures None recorded. Surgeries None recorded. Imaging None recorded. Medication Orders None recorded. Patient TargetsNo targets recorded. Patient InstructionsNo instructions recorded. Reason for Referral None Reported. Results Created Date Observation Date Name Description Value Unit Range Abnormal Flag Note LastModifiedBy Organization Detail LastModifiedTime 12/13/1912/0612/06/2024 MRI proce dure (PROC ) No observ ation record ed. [email or web address] [facility] (Med Record) [address], [place], [address], 2024 10:13:14 12/17/19 25 12/06/2024 MRI, cervi gil spine , w/wo contr ast No observ ation record ed. [email or web address] Not Available 2024 11:26:57 12/21/19 25 12/20/2024 RF, small bowel follo w-thr ough study No observ ation record ed. [email or web address] [facility] [address], [place], [address], 2024 10:13:47 01/10/20 25 01/09/2025 CT biops y bone marro w [facility] [address] [place] [address] Phone: Fax: Name: BARTOLO HENDRICKSON Exam Date: 025 : 962 Age 64 years Gender : M Access ion: [id number] Physic linda: BRAN MUÑOZ Facili ty: [place] Facili ty HSV: Outpat ient Exam: CT BIOPSY BONE MARROW PROCED URE: CT-CUBA DED BONE MARROW BIOPSY PHYSIC LINDA ADMINI STERED CONSCI OUS SEDATI ON ATTEND ING Physic linda: Dr. Ten mendes MD PRIMAR Y OPERAT OR: Marcio luong, FIRE SPRINKLER DESIGNER-C. Direct Superv ision: Willie nolasco PA-C. CLINIC [...] ucer needle was advanc ed into the customs officer ior right iliac bone. Next, the inner [...] actory biopsy needle positi oning within the customs officer ior right ilium bone. IMPRES YUNG: Uncomp licate d CT-cuba ded bone marrow biopsy as descri bed. Pathol ogy palmira martin Electr onical ly signed by: Ten mendes MD 2024 12:08 PM EDT RP Workst ation: [id number] Dictat ed By: Ten Weathers Legaltimo y romana matt d by SAMRA OMALLEY 01-09 09:44: 21 Transc ribed By: Transc ribed On: 9:44 AM Electr onical ly signed by: Ten Weathers Thank you for referr BARTOLO Viramontes to [facility]. Legall y romana luong by SAMRA OMALLEY 01-09 09:44: 21 CC'ed Logic: Orderi ng Provid er: WILLY SOTOMAYOR Attend ing Provid er: WILLY SOTOMAYOR Referr ing Provid er: WILLY SOTOMAYOR Admitt ing Provid er: WILLY SOTOMAYOR [address] - Physical Therapy [address], [place], [address], 01/09/2025 14:07:33 Result Notes None recorded. Problems Name Problem SNOMED Code Status Onset Date Resolution Date Notes Provider Name and Address Organization Details Recorded Time Weakness present 378111992 Active Deirdre Workman null, [place] [facility] [place] 14:32:40 Anemia 834390035 Active Deirdre Workman [place], [place] [facility] [place] 14:32:40 High troponin I level 419793195 Active Deirdre Work[place] [facility] [place] 14:32:40 Dyspnea on exertion 85176126 Active Deirdre Work[place] [facility] [place] 14:32:40 Gastrointe stinal hemorrhage 10388621 Active Deirdre Work[place] [facility] [place] 14:32:40 Atheroscle rosis of coronary artery without angina pectoris 1073898806837 03 Active 2023 Maxi Goodwin MD [address], [place], [address] , [place] [facility] [place] 4 13:56:37 Essential hypertensi on 02128499 Active 2023 Maxi Goodwin MD [address], [place], [address] , [place] [facility] [place] 4 13:56:52 Heart murmur 13395387 Active 2023 Maxi Goodwin MD [address], [place], [address] , [place] [facility] [place] 4 14:53:45 Anemia due to blood loss 055305959 Active 2024 Slade Lennon PA-C [address], [place], [address] , [place] [facility] [place] 5 20:36:19 Abnormal movement 465704290 Active 2024 Slade Lennon PA-C [address] , [place], [address] , [place] [facility] [place] 5 13:24:16 Cirrhosis - non-alcoho lic 277424191 Active 2024 Slade Lennon PA-C [address], [place], [address] , [place] [facility] [place] 5 22:13:33 Anxiety 07634111 Active 2021 Tarun Hopkins [place] 2 13:21:47 Chronic pain 05785546 Active 2021 Tarun [place] [facility] [place] 2 13:21:53 Hypertensi ve disorder 97001916 Active 2021 Tarun Hopkins [place] [facility] [place] [facility] & [place] 2 13:22:00 Diabetes mellitus 30929018 Active 2021 Tarun Hopkins null, [place] [facility] & [place] 2 13:22:16 Cirrhosis of liver 22519016 Active [address], [place], [address] , [place] [facility] [place] 4 10:34:13 Iron deficiency anemia 62733581 Active [address], [place], [address] , [place] [facility] [place] 4 10:34:22 Vascular ectasia of gastric antrum 01567822 Active [address], [place], [address] , [place] [facility] [place] 4 10:34:26 Upper gastrointe stinal bleeding 42800977 Active [address], [place], [address] , [place] [facility] [place] 4 10:34:38 Bilateral lower limb edema 635843542 Active [address], [place], [address] , [place] [facility] [place] 4 12:54:25 Hepatic encephalop athy 16070238 Active [address], [place], [address] , [place] [facility] [place] 4 13:42:22 Problem Notes None recorded. Procedures Surgical History Date Name Laterality Status Provider Name and Address Organization Details Recorded Time 12/17/19 25 Venipuncture Gastro completed Janell Ruff [place] - [facility] & [place] 12/16/2024 13:55:02 cholecystectomy completed Deirdre [place]stead [place] - [facility] & [place] 10/07/2022 09:58:34 Knee arthroscopy/surgery completed Deirdre WOOD [facility] & [place] 10/07/2022 09:58:40 Imaging Results None recorded. Procedure Notes None recorded. Medical Equipment None Reported. Allergies Allergen ID Allergen Name Allergen Category Reaction Reaction Severity Criticality Documentation Date Start Date Code Code System Note Provider Name and Address Organization Details Recorded Time 463750 celecoxib medicatio n Not available Not available Not available 08/21/2024 72418 7 RxNorm Other react ions and sever ities : 'Adve rse react ion to subst ance' . [place] Luna [facility] & [place] 4 14:32:25 [address]10[address] Celebrex medicatio n Not available Not available Not available 06/28/2022 66819 7 RxNorm Melaniegonzales [place] Moore [facility] & [place] 2 10:41:02 Medications Name Sig Start Date [...] No t Available sumatriptan 100 mg tablet TAKE 1/2 TO 1 TABLET BY MOUTH AT ONSET OF HEADACHE, MAY REPEAT DOSE ONCE IN 2 HOURS IF NO RELIEF. active Not Available Not Available No t [...] Not Available Not Available No t Available spironolact one 100 mg tablet TAKE 1 TABLET BY MOUTH ONCE A DAY active [...] Not Available Not Available No t Available potassium chloride ER 10 mEq tablet,exte nded release TAKE 1 TABLET BY MOUTH 2 TIMES A DAY active [...] Available Not Available No t Available furosemide 80 mg tablet TAKE 1 TABLET BY MOUTH ONCE A DAY active [...] /min 105 mm[Hg] 48 mm[Hg] Deirdre WOOD [facility] & [place] 5 13:45:00 Social History Question Answer Notes LastModified by Organizat ion Details LastModified Time Tobacco Smoking Status Never Smoker [place] [facility] & [place] 10/07/2022 09:58:16 What Is Your Level Of Caffeine Consumption? Moderate [email or web address] Information not available 09/12/2024 Sex: Unknown Functional Status Question Answer Note LastModified by Organizat ion Details LastModified Time Do you use any illicit or recreational drugs? No [email or web address] Information not available 10/07/2022 What is your level of alcohol consumption? None [email or web address] Information not available 10/07/2022 Mental Status None recorded. Family History Relationship Description Onset Age of this Age Resolved Age Notes LastModified by Organization Details LastModified Time Father Father stomac h cancer [email or web address] Not available 10/07/2022 09:57:37 Mother Mother COPD [email or web address] Not available 10/07 09:58:04 Medical History No medical history recorded. Immunizations Vaccine Type Date Status Note Provider Nam e and Address Organization Details Recorded Time Influenza, split virus, quadrivalent, preservative 9 completed Deirdre castrejon, [place] WOOD [facility] & [place] 02/03/2023 09:34:06 COVID-19 vaccine, vector-nr, rS-Ad26, PF, 0.5 mL 1 completed Deirdre castrejon, [place] WOOD [facility] & [place] 02/03/2023 09:34:06 COVID-19 vaccine, vector-nr, rS-Ad26, PF, 0.5 mL 1 completed Deirdre castrejon, [place] WOOD [facility] & [place] 02/03/2023 09:34:06 COVID-19, mRNA, LNP-S, bivalent, PF, 30 mcg/0.3 mL dose 2 completed Deirdre castrejon, [place] WOOD [facility] & [place] 02/03/2023 09:34:06 Tdap 5 completed Deirdre [place] [facility] 02/03/2023 09:34:06 Influenza, split virus, trivalent, PF 7 completed Deirdre [place] 02/03/2023 09:34:06 Influenza, split virus, trivalent, PF 3 completed Deirdre [place] 02/03/2023 09:34:06 Hep B, adult 6 completed Deirdre [place] 02/03/2023 09:34:06 Hep B, adult 5 completed Deirdre [place] 02/03/2023 09:34:06 Hep B, adult 5 completed Deirdre Workman null, [place] - [facility] [place] 02/03/2023 09:34:06 Influenza, split virus, quadrivalent, PF 0 completed De[place] 02/03/2023 09:34:06 Influenza, split virus, quadrivalent, PF 1 completed Deirdre Workman null, [place] - [facility] [place] 02/03/2023 09:34:06 Influenza, split virus, quadrivalent, PF 5 completed De[place] 02/03/2023 09:34:06 Influenza, split virus, quadrivalent, PF 7 completed Deirdre [place] 02/03/2023 09:34:06 Influenza, split virus, quadrivalent, PF 2 completed De[place] 02/03/2023 09:34:06 Influenza, split virus, quadrivalent, PF 6 completed Deird[place] 02/03/2023 09:34:06 Influenza, split virus, trivalent, PF 4 completed Deirdre [place] [facility], [place] [facility] [place] 12/12/2024 13:08:09 Past Encounters Encounter ID Performer Location Encounter Start Date Encounter Closed Date Diagnosis/Indication Diagnosis SNOMED-CT Code Diagnosis ICD10 Code Diagnosis Note [id number] Bran Gregg PA-C [facility] [address] [place] [address] 12/12/2024 13:02:17 12/12/2024 13:26:58 Leukopenia 38108153 D72.819 Patient labs performed per his primary [...] Hemoglobin 14.2 and hematocrit 42. Platelet count 98217 Labs on June 28, 2022 with WBC [...] 3.8. Hemoglobin 11.1. Hematocrit 34.3. Platelet count 26566. MCV 91.5. GFR greater than 60. Albumin 3.2. Total protein 7.1. Normal liver function testing. Patient returns on February 03, 2023. Discussed repeat labs today. Patient returns on December 12, 2024. Patient was hospitaliz ed at [facility] for a gi bleed 09/30/24-. He had varices banded and received 7 units of blood at that time. Follow up EGD and November 13, 2024 with no evidence of blood loss. Labs on August 21, 2024 with pancytopen ia. White blood cell count 2.1. Hemoglobin 6.7 and hematocrit 23.2. Platelet count 35021. serum iron low at 26 and iron [...] iron is required at this time Anemia 070191326 D64.9 Patient labs performed per his primary [...] required at this time. Thrombocyt openic disorder 318689024 D69.6 Patient labs performed per his primary [...] Hemoglobin 14.2 and hematocrit 42. Platelet count 19740 Discussed thrombocyt openia likely secondary to cirrhosis. MRI of lum bar spine abnormal 557805998 R93.7 Patient returns on December 12, 2024. Patient states he has had muscle spasms and tremors for the past 6 months. States he has had multiple falls due to the tremor since spasms. He has difficulty eating with utensils at times due to tremors. He has been following up with his primary care provider for this. He recently had MRI of his back [facility]. Reviewed MRI today and it states there is diffuse abnormal decreased marrow signal which could be secondary to marrow infiltrati on secondary to neoplasm, hematologi gil disease, or myelofibro sis. Multilevel degenerati ve disc disease was also noted. Will order labs for further evaluation today. Discussed bone marrow biopsy for further evaluation . Patient agreeable. Will order. History of esophageal varices [id number] 5188006 Z87.19 Patient returns on December 12, 2024. Patient was hospitaliz ed at [facility] for a gi bleed 09/30/24-. He had varices banded and received 7 units of blood at that time. Follow up EGD and November 13, 2024 with no evidence of blood loss. [id number] Slade Lennon PA-C [facility] [address] [place] [address] 12/16/2024 12:28:41 12/16/2024 13:52:09 Anemia due to blood loss 432998707 D50.0 Cirrhosis of liver 82049 007 K74.60 Hepatic encephalopathy 52308764 K76.82 Vascular e ctasia of gastric antrum 23163345 K31.819 Abnormal movement 665210 002 G25.9 [id number] Bran Gregg PA-C [facility] [address] [place] [address] 12/31/2024 13:33:20 12/31/2024 14:30:13 Leukopenia 30028864 D72.819 Patient labs performed per his primary [...] Hemoglobin 14.2 and hematocrit 42. Platelet count 04398 Labs on June 28, 2022 with WBC [...] 3.8. Hemoglobin 11.1. Hematocrit 34.3. Platelet count 95149. MCV 91.5. GFR greater than 60. Albumin 3.2. Total protein 7.1. Normal liver function testing. Patient returns on February 03, 2023. Discussed repeat labs today. Patient was hospitaliz ed at [facility] for a GI bleed 09/30/24-. He [...] He recently had MRI of his back [facility]. Reviewed MRI and it states there [...] Hemoglobin 6.7 and hematocrit 23.2. Platelet count 00629. serum iron low at 26 and iron saturation 6%. Ferritin 13. Labs on December 12, 2024 with pancytopen ia. White blood cell count 2. Patient is asymptomat ic. Patient denies any signs of infection. Leukopenia likely secondary to cirrhosis. Anemia 239795417 D64.9 Patient labs performed per his primary [...] at 982. Patient was hospitaliz ed at [facility] for a GI bleed 09/30/24-. He [...] He recently had MRI of his back [facility]. Reviewed MRI and it states there [...] Hemoglobin 6.7 and hematocrit 23.2. Platelet count 59503. serum iron low at 26 and iron saturation 6%. Ferritin 13. Patient returns on December 31, 2024. Bone marrow biopsy was ordered at previous visit but it has not been scheduled yet. Will make sure this is scheduled. Labs on December 12, 2024 with pancytopen ia. White blood cell count 2. Hemoglobin 7.1 and hematocrit 26.8. Platelet count 30833. Serum iron low at 19 and iron [...] should the need arise. Thrombocyt openic disorder 363461102 D69.6 Patient labs performed per his primary [...] Hemoglobin 14.2 and hematocrit 42. Platelet count 31522 Discussed thrombocyt openia likely secondary to cirrhosis. MRI of lum bar spine abnormal 888301601 R93.7 Patient states he has had all over muscle spasms for the past 6 months. States he has had multiple falls due to the muscle spasms. He has difficulty eating with utensils at times due to tremors. He has been following up with his primary care provider for this. He recently had MRI of his back [facility]. Reviewed MRI and it states there [...] this is scheduled. History of esophageal varices [id number] 3102114 Z87.19 Patient returns on December 12, 2024. Patient was hospitaliz ed at [facility] for a gi bleed 09/30/24-. He [...] Grimm Member ID Guarantor Name 12/31/2024 2 [place] myEDmatch [facility] - FFS/TRADITION [place] Bartolo Hendrickson [id number] Bartolo Hendrickson 12/31/2024 1 [facility] (MEDICARE REPLACEMENT/A DVANTAGE - HMO) KYDSNP Bartolo Hendrickson [id number] Bartolo Hendrickson Notes Date Note Type Note [...] Hemoglobin 14.2 and hematocrit 42. Platelet count 83810 Patient does not smoke. Denies any recent [...] 3.8. Hemoglobin 11.1. Hematocrit 34.3. Platelet count 00648. MCV 91.5. GFR greater than 60. Albumin 3.2. Total protein 7.1. Normal liver function testing. Labs on February 03, 2023 with improvement in platelet count 301663. Improvement in white blood cell count 3.4. [...] cell count 2.3. Hemoglobin 11.1. Platelet count 99989. Serum iron low at 24 and iron [...] applied May 2024. Patient was hospitalized at [facility] for a GI bleed 09/30/24-10/03/24. He [...] He recently had MRI of his back [facility]. Reviewed MRI and it states there [...] Hemoglobin 6.7 and hematocrit 23.2. Platelet count 86747. serum iron low at 26 and iron saturation 6%. Ferritin 13. Patient returns on December 31, 2024. Bone marrow biopsy was ordered at previous visit but it has not been scheduled yet. Will make sure this is scheduled. Labs on December 12, 2024 with pancytopenia. White blood cell count 2. Hemoglobin 7.1 and hematocrit 26.8. Platelet count 57190. Serum iron low at 19 and iron [...] should the need arise. Bran Gregg PA-C [address], [place], [address], [place] [facility] [place] 12/31/2024 14:44:31
--- OUTSIDE RECORDS SUMMARY | 2025-02-21 09:05 | XMS_ITS | Continuity of Care Document ---
Author Organization [facility] Address [address] [place] [address] Care Team Providers Care Statistical Programmer Name Role Phone AGUSTIN WARD Primary Care Provider [phone] Assessment No assessment recorded. Plan of Treatment Reminders Order Date Submit Date Provider Last Modified By Organization Details Last Modified Time Details Appointments OV EST 15 2024 02:00P M Sarthak Vincent MD Not available Not available Not available Establish ed Visit 15 min 2024 01:00P M Slade Lennon PA-C Not available Not available Not available Lab iron + TIBC + ferritin, serum 2024 025 [email or web address] [facility], [address] [place], [address], 02/20/2025 15:39:26 iron saturatio n, serum 2024 025 [email or web address] [facility], [address] [place], [address], 02/20/2025 15:39:26 CMP, serum or plasma 2024 025 [email or web address] [facility], [address] [place], [address], 02/20/2025 15:39:26 CBC w/ auto diff 2024 025 [email or web address] [facility], [address] [place], [address], 02/20/2025 15:39:26 type + screen, blood 2024 025 [email or web address] [facility], [address], [place], [address], 02/20/2025 15:39:26 Referral None recorded. Procedures None recorded. Surgeries None recorded. Imaging None recorded. Medication Orders None recorded. Patient TargetsNo targets recorded. Patient InstructionsNo instructions recorded. Reason for Referral None Reported. Problems Name Problem SNOMED Code Status Onset Date Resolution Date Notes Provider Name and Address Organization Details Recorded Time Weakness present 683290756 Active Deirdre Workman null, [place] [facility] & [place] 4 14:32:40 Anemia 653898071 Active Deirdre Workman null, [place] [facility] - [place] & [place] 4 14:32:40 High troponin I level 182198520 Active Deirdre Workman null, [place] [facility] - [facility] & [place] 4 14:32:40 Dyspnea on exertion 28931631 Active Deirdre Workman null, [place] [facility] [place] [facility] & [place] 4 14:32:40 Gastrointe stinal hemorrhage 10662791 Active Deirdre Workman null, [place] [facility] - [facility] & [place] 4 14:32:40 Atheroscle rosis of coronary artery without angina pectoris 3720588109112 03 Active 2023 Maxi Goodwin MD [address], [place], [address] , [place] - [facility] - [facility] & [place] 4 13:56:37 Essential hypertensi on 12957240 Active 2023 Maxi Goodwin MD [address], [place], [address] , [place] [facility] - [facility] & [place] 4 13:56:52 Heart murmur 95713918 Active 2023 Maxi Goodwin MD [address], [place], [address] , [place] [facility] - [facility] & [place] 4 14:53:45 Anemia due to blood loss 340550547 Active [address], [place], [address] , [place] - [facility] - [place] & [place] 5 20:36:19 Abnormal movement 148003422 Active [address], [place], [address] , [place] [facility] [place] & [place] 5 13:24:16 Cirrhosis - non-alcoho lic 759605991 Active [address], [place], [address] , [place] [facility] [place] & [place] 5 22:13:33 Anxiety 92980952 Active 2021 Tarun Hopkins null, [place] [facility] [place] & [place] 2 13:21:47 Chronic pain 22121943 Active 2021 Tarun Hopkins null, [place] & [place] 2 13:21:53 Hypertensi ve disorder 61116679 Active 2021 Tarun Hopkins null, [place] & [place] 2 13:22:00 Diabetes mellitus 41851730 Active 2021 Tarun Hopkins null, [place] & [place] 2 13:22:16 Cirrhosis of liver 59409322 Active [address], [place], [address] , [place] [facility] [place] & [place] 4 10:34:13 Iron deficiency anemia 16100060 Active [address], [place], [address] , [place] [facility] [place] & [place] 4 10:34:22 Vascular ectasia of gastric antrum 21198109 Active [address], [place], [address] , [place] - [facility] & [place] 4 10:34:26 Upper gastrointe stinal bleeding 42680547 Active 2023 Slade Lennon PA-C [address], [place], [address] , [place] - [facility] & [place] 4 10:34:38 Bilateral lower limb edema 078188872 Active [address], [place], [address] , [place] - [facility] & [place] 4 12:54:25 Hepatic encephalop athy 01095579 Active 2023 Slade Lennon PA-C [address] [place], [address] , [place] - [facility] & [place] 4 13:42:22 Problem Notes None recorded. Procedures Surgical History Date Name Laterality Status Provider Name and Address Organization Details Recorded Time 12/17/19 Venipuncture Gastro completed Janell [facility] & [place] 12/16/2024 13:55:02 cholecystectomy [facility] & [place] 10/07/2022 09:58:34 Knee arthroscopy/surgery [facility] & [place] 10/07/2022 09:58:40 Imaging Results None recorded. Procedure Notes None recorded. Medical Equipment None Reported. Allergies Allergen ID Allergen Name Allergen Category Reaction Reaction Severity Criticality Documentation Date Start Date Code Code System Note Provider Name and Address Organization Details Recorded Time 738739 celecoxib medicatio n Not available Not available Not available 08/21/2024 31142 7 RxNorm Other react ions and sever ities : 'Adve rse react ion to subst ance' . Deirdre [facility] [place] - [facility] & [place] 4 14:32:25 41686 Celebrex medicatio n Not available Not available Not available 06/28/2022 34146 7 RxNorm Gracen Yazell null, [place] - [facility] - [place] & [place] 10:41:02 Medications Name Sig Start Date Stop [...] Not Available Not Available Not Available Vitals None Recorded Social History Question Answer Notes LastModified by Organizat ion Details LastModified Time Tobacco Smoking Status Never Smoker Deirdre Workbob [facility] 10/07/2022 09:58:16 What Is Your Level Of Caffeine Consumption? Moderate [email or web address] Information not available 09/12/2024 Sex: Unknown Functional Status Question Answer Note LastModified by Organizat ion Details LastModified Time Do you use any illicit or recreational drugs? No Information not available 10/07/2022 What is your level of alcohol consumption? None Information not available 10/07/2022 Mental Status None recorded. Family History Relationship Description Onset Age of this Age Resolved Age Notes LastModified by Organization Details LastModified Time Father Father stomac h cancer [email or web address] Not available 10/07/2022 09:57:37 Mother Mother COPD Not available 10/07 09:58:04 Medical History No medical history recorded. Immunizations Vaccine Type Date Status Note Provider Nam e and Address Organization Details Recorded Time Influenza, split virus, quadrivalent, preservative 9 completed Deirdre Workman null, [place] [place] & [place] 02/03/2023 09:34:06 COVID-19 vaccine, vector-nr, rS-Ad26, PF, 0.5 mL 1 completed Deirdre Workman null, [place] & [place] 02/03/2023 09:34:06 COVID-19 vaccine, vector-nr, rS-Ad26, PF, 0.5 mL 1 completed Deirdre Workman [place] & [place] 02/03/2023 09:34:06 COVID-19, mRNA, LNP-S, bivalent, PF, 30 mcg/0.3 mL dose 2 completed Deirdre Workman null, [place] & [place] 02/03/2023 09:34:06 Tdap 5 [...] Deirdre Work[place], [place] [facility] & [place] 02/03/2023 09:34:06 Hep B, adult 5 completed [...] [place] & [place] 12/12/2024 13:08:09 Past Encounters Encounter ID Performer Location Encounter Start Date Encounter Closed Date Diagnosis/Indication Diagnosis SNOMED-CT Code Diagnosis ICD10 Code Diagnosis Note [id number] Slade Lennon PA-C [facility] [address] [place] [address] 01/27/2025 10:46:31 01/27/2025 12:00:47 Anemia due to blood loss 141447423 D50.0 Cirrhosis of liver 007 K74.60 Hepatic encephalopathy 96860921 K76.82 Vascular e ctasia of gastric antrum 14784758 K31.819 Abnormal movement 987831 002 G25.9 [id number] Sandra Gregg PA-C [facility] [address] [address] [place] [address] 02/20/2025 11:37:43 02/20/2025 11:56:41 Leukopenia 82554140 D72.819 Patient labs performed per his primary care provider on {{ Junemb er 1, 2022#}} with white blood cell count {{ [...] Hemoglobin 14.2 and hematocrit 42. Platelet count 79198 Labs on June 28, 2022 with WBC [...] 3.8. Hemoglobin 11.1. Hematocrit 34.3. Platelet count 29410. MCV 91.5. GFR greater than 60. Albumin 3.2. Total protein 7.1. Normal liver function testing. Patient returns on February 03, 2023. Discussed repeat labs today. Patient was hospitaliz ed at [facility] for a GI bleed 09/30/24-. He [...] He recently had MRI of his back [facility]. Reviewed MRI and it states there is [...] Hemoglobin 6.7 and hematocrit 23.2. Platelet count 34609. serum iron low at 26 and iron saturation 6%. Ferritin 13. Labs on December 31, 2024 with pancytopen ia. White blood cell count 1.7. ANC 1.3. Patient is asymptomat ic. Patient denies any signs of infection. Leukopenia likely secondary to cirrhosis. Anemia 179699219 D64.9 Patient labs performed per his primary [...] at 982. Patient was hospitaliz ed at [facility] for a GI bleed 09/30/24-. He [...] He recently had MRI of his back [facility]. Reviewed MRI and it states there is [...] Hemoglobin 6.7 and hematocrit 23.2. Platelet count 85015. serum iron low at 26 and iron saturation 6%. Ferritin 13. Labs on December 12, 2024 with pancytopen ia. White blood cell count 2. Hemoglobin 7.1 and hematocrit 26.8. Platelet count 87662. Serum iron low at 19 and iron saturation 5%. Ferritin 12. Normal flow cytometry. Patient received blood transfusio n 2 units prbcs and infusional iron. Labs on December 31, 2024 with hemoglobin 7.8 Audio only telephone visit on February 20, 2025 began at 11:14 a.m. and ended at 11:30 a.m. Patient is located at his home and provider is located at [facility]. Consent obtained from patient. Patient lives near [facility]. Patient has difficultl y traveling to due to muscle weakness and spasms. Patient states he has a ruptured disc. He is following up with Orthopedic surgery for this. He has had all over muscle spasms. He has been referred to Neurology. He states he is scheduled for an EEG February 21, 2025. Benign bone marrow biopsy January 09, 2025. 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 Will fax lab order today to [facility]. Will follow up labs. Thrombocyt openic disorder 096814520 D69.6 Patient labs performed per his primary [...] Hemoglobin 14.2 and hematocrit 42. Platelet count 37792 Discussed thrombocyt openia likely secondary to cirrhosis. MRI of lum bar spine abnormal 722295783 R93.7 Patient states he has had all over muscle spasms for the past 6 months. States he has had multiple falls due to the muscle spasms. He has difficulty eating with utensils at times due to tremors. He has been following up with his primary care provider for this. He recently had MRI of his back [facility]. Reviewed MRI and it states there is diffuse abnormal decreased marrow signal which could be secondary to marrow infiltrati on secondary to neoplasm, hematologi gil disease, or myelofibro sis. Multilevel degenerati ve disc disease was also noted. Discussed bone marrow biopsy for further evaluation . Benign bone marrow biopsy January 09, 2025. History of esophageal varices [id number] 8863310 Z87.19 Patient returns on December 12, 2024. Patient was hospitaliz ed at [facility] for a gi bleed 09/30/24-. He had varices banded and received 7 units of blood at that time. Follow up EGD and November 13, 2024 with no evidence of blood loss. 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 Iron defic iency anemia due to blood loss 510960048 D50.0 Patient labs performed per his primary care [...] at 982. Patient was hospitaliz ed at [facility] for a GI bleed 09/30/24-. He [...] He recently had MRI of his back [facility]. Reviewed MRI and it states there is [...] Hemoglobin 6.7 and hematocrit 23.2. Platelet count 99716. serum iron low at 26 and iron saturation 6%. Ferritin 13. Labs on December 12, 2024 with pancytopen ia. White blood cell count 2. Hemoglobin 7.1 and hematocrit 26.8. Platelet count 83587. Serum iron low at 19 and iron saturation 5%. Ferritin 12. Normal flow cytometry. Patient received blood transfusio n 2 units prbcs and infusional iron. 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 Will fax lab order today to [facility]. Will follow up labs. Health Concerns Section Related Observation LastModified by Organization Detai ls LastModified Time None Recorded Concern Status LastModified by Organization Details LastModified Time None Recorded Payers Encounter Date Sequence Insurance Name Policy Number Policy Grimm Covered Member ID Grimm Member ID Guarantor Name 02/20/2025 2 [employer]ICA[employer]-[facility] CHO[facility] - FFS/TRADITION AL Chema Hendrickson [id number] Chema Hendrickson 02/20/2025 1 [facility] (MEDICARE REPLACEMENT/A DVANTAGE - HMO) [id number] Chema Hendrickson [id number] Chema Hendrickson Notes Date Note Type Note Provider Name and Address Organization Details Recorded Time 02/20/2025 text/html 64-year-old male returns for evaluation of pancytopenia. Patient [...] Hemoglobin 14.2 and hematocrit 42. Platelet count 75447 Patient does not smoke. Denies any recent [...] 3.8. Hemoglobin 11.1. Hematocrit 34.3. Platelet count 17055. MCV 91.5. GFR greater than 60. Albumin 3.2. Total protein 7.1. Normal liver function testing. Labs on February 03, 2023 with improvement in platelet count 119492. Improvement in white blood cell count 3.4. [...] cell count 2.3. Hemoglobin 11.1. Platelet count 01883. Serum iron low at 24 and iron [...] applied May 2024. Patient was hospitalized at [facility] for a GI bleed 09/30/24-10/03/24. He [...] He recently had MRI of his back [facility]. Reviewed MRI and it states there is [...] Hemoglobin 6.7 and hematocrit 23.2. Platelet count 30154. serum iron low at 26 and iron saturation 6%. Ferritin 13. Labs on December 12, 2024 with pancytopenia. White blood cell count 2. Hemoglobin 7.1 and hematocrit 26.8. Platelet count 63440. Serum iron low at 19 and iron saturation 5%. Ferritin 12. Normal flow cytometry. Patient received blood transfusion 2 units prbcs and infusional iron. Labs on December 31, 2024 with hemoglobin 7.8 Audio only telephone visit on February 20, 2025 began at 11:14 a.m. and ended at 11:30 a.m. Patient is located at his home and provider is located at [facility]. Consent obtained from patient. Patient lives near [facility]. Patient has difficultly traveling to due to muscle weakness and spasms. Audio only phone visit requested. Patient states he has a ruptured disc. He is following up with Orthopedic surgery for this. He has had all over muscle spasms. He has been referred to Neurology. He states he is scheduled for an EEG February 21, 2025. Benign bone marrow biopsy January 09, 2025. 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 Will fax lab order today to [facility]. Will follow up labs. Sandra Gregg PA-C [address], [place], [address], [place] [facility] [place] & [place] 02/20/2025 13:27:16
--- OUTSIDE RECORDS SUMMARY | 2025-02-21 09:05 | XMS_ITS | Continuity of Care Document ---
Author Organization [facility] Phone Care Team Providers Care Rolling Mill Operator Name Role Phone AGUSTIN WARD Primary Care BRAN AGUAYO Primary Attending BRAN AGUAYO Admitting ALLERGIES AND ADVERSE REACTIONS FAMILY HISTORY RESULTS MEDICATIONS SOCIAL HISTORY VITAL SIGNS HEALTH CONCERNS ENCOUNTERS CARE TEAM
--- OUTSIDE RECORDS SUMMARY | 2025-02-21 09:06 | XMS_ITS | Data Portability ---
Author Organization [place] [facility] - [place] [facility] ADMIN Address [address] [place] [id number] Care Team Providers Care Tunnel Mucker Name Role Phone SYLVIA AGUSTIN EH Primary Care Provider Assessment Encounter Date Assessment [...] showed degenerative changes of the lower spine. 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 Repeat EGD by Dr. Toni Reynoso showed GAVE and no esophageal varices. APC was again performed. Transplant referral was suggested due to recurrent GI bleeding complicated by his cirrhosis. He follows with hematology for infusional iron therapy. Recent BMB was performed with preliminary findings appearing benign.. Recent Capsule endoscopy showed no bleeding from the small bowel. 1) Symptomatic anemia due to chronic upper GI bleeding/GAVE: -This is complicated by his cirrhosis and portal hypertension. He has been experience weakness and falls. We will refer the patient to Transplant Hepatology at for evaluation. -Continue follow-up with hematology. 2) Cirrhosis: Etiology PERALTA by history, likely decompensated with suspected hepatic encephalopathy. MELD 3.0 = 11 on 06/24/24, was more recently 8 during outside hospitalization. He is agreeable to transplant facility referral due to complications arising from portal hypertension. -EV: Small esophageal varices noted on recent EGD at 09/30/24. None on repeat EGD 11/2024. Repeat [address] Jones. -ascites: None overt at this time. He has chronic BLE edema for which his diuretics have been increased to lasix 80 mg daily and aldactone 100 mg daily as prescribed following his most recent hospitalization. -HE: He has complained of poor memory and some sleep disturbance for a few months. He previously deferred use of lactulose due to concerns with diarrhea. Continue Xifaxan. -HCC screening: US liver 06/2024 without hepatic lesion identified. CT with contrast in the ED last month with no focal liver lesion seen. 3) GAVE: With chronic persistent blood loss. Capsule endoscopy showed no source of bleeding in the small bowel. -Continue infusional iron therapy. Most recent APC was 2 weeks ago at [facility]. He has undergone mutiple ablative procedures previously. 4) Tremor of upper and lower extremity: He reports multiple recent falls that he feels is not due to dizziness, syncope, or weakness but rather his legs just giving out . -He was referred to neurology for further evaluation. -recent non-contrast brain ct showed atrophy with otherwise unremarkable findings. He reports recent MRI at [facility] showed degenerative changes of the lower spine. [email or web address] Not available 01/28/2025 22:11:56 Plan of Treatment Reminders Order Date Submit Date Provider Last Modified By Organization Details Last Modified Time Details Appointments OV EST 15 2024 02:00P M Sarthak Vincent MD Not available Not available Not available Establish ed Visit 15 min 2024 01:00P M Slade Lennon PA-C Not available Not available Not available Lab iron + TIBC + ferritin, serum 2024 025 [email or web address] [facility], [address], [place], [address], 02/20/2025 15:39:26 iron saturatio n, serum 2024 025 [facility], [address], [place], [address], 02/20/2025 15:39:26 CMP, serum or plasma 2024 025 [email or web address] [facility], [address], [place], [address], 02/20/2025 15:39:26 CBC w/ auto diff 2024 025 [facility], [address] [facility], [place], [address], 02/20/2025 15:39:26 type + screen, blood 2024 025 [email or web address] [facility], [address] [facility], [place], [address], 02/20/2025 15:39:26 CMP, serum or plasma 2024 025 [email or web address] [facility], [address] [facility], [place], [address], 01/07/2025 08:45:30 CBC w/ auto diff 2024 025 [facility], [address] [facility], [place], [address], 12/31/2024 15:15:43 type + screen, blood 2024 025 [email or web address] [facility], [address] [facility], [place], [address], 01/07/2025 08:45:30 hemoglobi n + hematocri t, blood 2024 025 [place] [facility], [address], [address], [place], [address], 12/17/2024 07:13:[address] referral 2024 025 [email or web address] Radha Arauz MD, [address] [facility] [address], [place], [address], 12/16/2024 13:31:45 Procedures None recorded. Surgeries None recorded. Imaging RF, small bowel follow-th rough study 2024 025 [email or web address] [facility] Scheduling Department -New Scheduling Process, [address], [place], [address], 12/23/2024 08:41:07 Medication Orders None recorded. Patient TargetsNo targets recorded. Patient InstructionsNo instructions recorded. Reason for Referral Neurologist Referral for Abn ormal movement Referring Physician: Slade Lennon, Gastroenterology, Encounter Date: 12/16/2024 Results Created Date Observation Date Name Description Value Unit Range Abnormal Flag Note LastModifiedBy Organization Detail LastModifiedTime 12/13/1912/12/2024 IRON STUDY (IRON /TIBC /%SAT ) iron 19 mcg/m L 40-180 low Not Available [facility] ([facility]) [address] [place], [address], 12/12/2024 17:59:30 12/13/19 25 12/12/2024 IRON STUDY (IRON /TIBC /%SAT ) TIBC 350 mcg/d L 250-45 0 Not Available [facility] ([facility]) [address] [place], [address], 12/12/2024 17:59:30 12/13/19 25 12/12/2024 IRON STUDY (IRON /TIBC /%SAT ) %sat 5 15-55 low Not Available [facility] ([facility]) [address] [place], [address], 12/12/2024 17:59:30 12/13/19 25 12/12/2024 COMP METAB OLIC PANEL sodium 145 mmol/ L 136-14 5 Not Available [facility] ([facility]) [address] [place], [address], 12/12/2024 18:11:26 12/13/19 25 12/12/2024 COMP METAB OLIC PANEL potassium 4.1 mmol/ L 3.6-5. 0 Not Available [facility] ([facility]) [address] [place], [address], 12/12/2024 18:11:26 12/13/19 25 12/12/2024 COMP METAB OLIC PANEL chloride 108 mmol/ L 98-107 high Not Available [facility] ([facility]) [address], [place], [address], 12/12/2024 18:11:26 12/13/19 25 12/12/2024 COMP METAB OLIC PANEL carbon dioxide 28.2 mmol/ L 21.0-3 2.0 Not Available [facility] ([facility]) [address] [facility], [place], [address], 12/12/2024 18:11:26 12/13/19 25 12/12/2024 COMP METAB OLIC PANEL anion gap 12.9 Not Available [facility]) [address] [facility], [place], [address], 12/12/2024 18:11:26 12/13/19 25 12/12/2024 COMP METAB OLIC PANEL glucose 92 mg/dL 70-120 Not Available [facility] ([facility]) [address] [facility], [place], [address], 12/12/2024 18:11:26 12/13/19 25 12/12/2024 COMP METAB OLIC PANEL BUN 21 mg/dL 7-18 high Not Available [facility] ([facility]) [address] [facility], [place], [address], 12/12/2024 18:11:26 12/13/19 25 12/12/2024 COMP METAB OLIC PANEL creatinine 1.4 mg/dL 0.6-1. 3 high Not Available [facility] ([facility]) [address] [facility], [place], [address], 12/12/2024 18:11:26 12/13/19 25 12/12/2024 COMP METAB [...] ge ing kiney funct ion. Not Available [facility] ([facility]) [address] [facility], [place], [address], 12/12/2024 18:11:26 12/13/19 25 12/12/2024 COMP METAB OLIC PANEL osmolality (calculated) 304 mOsm/ kg 275-30 1 high OSMOL ALITY IS A CALCU LATIO N UTILI ZING THE SERUM /PLAS MA SODIU M, GLUCO SE AND UREA NITRO GEN (BUN) LEVEL S. FOR THE MOST ACCUR ATE RESUL T A MEASU RED SERUM OSMOL ALITY IS SUGGE STED. Not Available [facility] ([facility]) [address] [facility], [place], [address], 12/12/2024 18:11:26 12/13/19 25 12/12/2024 COMP METAB OLIC PANEL total protein 6.4 g/dL 6.4-8. 2 Not Available [facility] ([facility]) [address] [facility], [place], [address], 12/12/2024 18:11:26 12/13/19 25 12/12/2024 COMP METAB OLIC PANEL albumin 2.6 g/dL 3.4-5. 0 low Not Available [facility] ([facility]) [address] [facility], [place], [address], 12/12/2024 18:11:26 12/13/19 25 12/12/2024 COMP METAB OLIC PANEL globulin 3.8 Not Available [facility] ([facility]) [address] [facility], [place], [address], 12/12/2024 18:11:26 12/13/19 25 12/12/2024 COMP METAB OLIC PANEL alb/glob ratio 0.7 0.7-2 Not Available [facility] ([facility]) [address], [place], [address], 12/12/2024 18:11:26 12/13/19 25 12/12/2024 COMP METAB OLIC PANEL calcium 8.3 mg/dL 8.5-10 .5 low Not Available [facility] ([facility]) [address], [place], [address], 12/12/2024 18:11:26 12/13/19 25 12/12/2024 COMP METAB OLIC PANEL bilirubin total 0.60 mg/dL 0.10-1 .00 Not Available [facility] ([facility]) [address], [place], [address], 12/12/2024 18:11:26 12/13/19 25 12/12/2024 COMP METAB OLIC PANEL AST (SGOT) 29 U/L 0-37 Not Available [facility] ([facility]) [address] , [place], [address], 12/12/2024 18:11:26 12/13/19 25 12/12/2024 COMP METAB OLIC PANEL ALT (SGPT) 23 U/L 0-65 Not Available [facility] ([facility]) [address] , [place], [address], 12/12/2024 18:11:26 12/13/19 25 12/12/2024 COMP METAB OLIC PANEL alk phosphatase 127 U/L 46-116 high Not Available [facility] ([facility]) [address] , [place], [address], 12/12/2024 18:11:26 12/13/19 25 12/12/2024 JORGE TIN ferritin, serum 12 NG/mL 3-244 Not Available [facility] ([facility]) [address] , [place], [address], 12/12/2024 18:11:27 12/13/19 25 12/12/2024 LDH (LD) LDH 205 U/L 0-190 high Not Available [facility] ([facility]) [address], [place], [address], 12/12/2024 18:11:28 12/13/19 25 12/12/2024 VITAM IN B12 vitamin B12 607 pg/mL 193-98 6 *Note : Refer beto Dempsey farheen [facility]. New Test Metho d in use. Not Available [facility] ([facility]) [address], [place], [address], 12/12/2024 18:29:30 12/13/19 25 12/12/2024 VITAM IN B12 folate (folic acid), serum 12.7 NG/mL 8.6-58 .9 *Note : Refer beto Ge e. New Test Metho d in use. Not Available [facility] ([facility]) [address] , [place], [address], 12/12/2024 18:29:30 12/13/19 25 12/12/2024 CBC AUTO W DIFF WBC 2.0 K/uL 4.0-10 .5 low Not Available [facility] ([facility]) [address] , [place], [address], 12/12/2024 18:43:17 12/13/19 25 12/12/2024 CBC AUTO W DIFF RBC 3.4 M/mm3 4.7-6. 1 low Not Available [facility] ([facility]) [address] , [place], [address], 12/12/2024 18:43:17 12/13/19 25 12/12/2024 CBC AUTO W DIFF HGB 7.1 gm/dL 13.5-1 8.0 low Not Available [facility] ([facility]) [address] , [place], [address], 12/12/2024 18:43:17 12/13/19 25 12/12/2024 CBC AUTO W DIFF HCT 26.8 % 42.0-5 2.0 low Not Available [facility] ([facility]) [address] , [place], [address], 12/12/2024 18:43:17 12/13/19 25 12/12/2024 CBC AUTO W DIFF MCV 80.0 fL 78-100 Not Available [facility] ([facility]) [address] , [place], [address], 12/12/2024 18:43:17 12/13/19 25 12/12/2024 CBC AUTO W DIFF MCH 21.2 pg 27-31 low Not Available [facility] ([facility]) [address] , [place], [address], 12/12/2024 18:43:17 12/13/19 25 12/12/2024 CBC AUTO W DIFF MCHC 26.5 g/dL 32-36 low Not Available [facility] ([facility]) [address] , [place], [address], 12/12/2024 18:43:17 12/13/19 25 12/12/2024 CBC AUTO W DIFF RDW 16.2 % 11.5-1 4.0 high Not Available [facility] ([facility]) [address] , [place], [address], 12/12/2024 18:43:17 12/13/19 25 12/12/2024 CBC AUTO W DIFF platelet count 74 K/uL 150-45 0 low Not Available [facility] ([facility]) [address] , [place], [address], 12/12/2024 18:43:17 12/13/19 25 12/12/2024 CBC AUTO W DIFF MPV TNP fL 6-9.5 TEST NOT PERFO RMED Not Available [facility] ([facility]) [address] [place], [address], 12/12/2024 18:43:17 12/13/19 25 12/12/2024 CBC AUTO W DIFF neutrophil% 68.2 % 43-65 high Not Available [facility] ([facility]) [address], [place], [address], 12/12/2024 18:43:17 12/13/19 25 12/12/2024 CBC AUTO W DIFF lymphocyte% 18.5 % 20.5-4 5.5 low Not Available [facility] ([facility]) [address], [place], [address], 12/12/2024 18:43:17 12/13/19 25 12/12/2024 CBC AUTO W DIFF monocyte% 8.2 % 5.5-11 .7 Not Available [facility] ([facility]) [address], [place], [address], 12/12/2024 18:43:17 12/13/19 25 12/12/2024 CBC AUTO W DIFF eosinophil% 3.1 % 0.9-2. 9 high Not Available [facility] ([facility]) [address] [place], [address], 12/12/2024 18:43:17 12/13/19 25 12/12/2024 CBC AUTO W DIFF basophil% 1.5 % 0.2-1. 0 high Not Available [facility] ([facility]) [address] [place], [address], 12/12/2024 18:43:17 12/13/19 25 12/12/2024 CBC AUTO W DIFF immature granulocytes % 0.5 % 0.0-0. 8 Not Available [facility] ([facility]) [address] [place], [address], 12/12/2024 18:43:17 12/13/19 25 12/12/2024 CBC AUTO W DIFF nucleated red blood cells % 0.0 % Not Available [facility] ([facility]) [address], [place], [address], 12/12/2024 18:43:17 12/13/19 25 12/12/2024 CBC AUTO W DIFF neutrophil# 1.3 K/uL 2.2-4. 8 low Not Available [facility] ([facility]) [address] [facility], [place], [address], 12/12/2024 18:43:17 12/13/19 25 12/12/2024 CBC AUTO W DIFF lymphocyte# 0.4 cell/ mcL 1.3-2. 9 low Not Available [facility] ([facility]) [address] [facility], [place], [address], 12/12/2024 18:43:17 12/13/19 25 12/12/2024 CBC AUTO W DIFF monocyte# 0.2 cell/ mcL 0.3-0. 8 low Not Available [facility] ([facility]) [address] [facility], [place], [address], 12/12/2024 18:43:17 12/13/19 25 12/12/2024 CBC AUTO W DIFF eosinophil# 0.1 cell/ mcL 0-0.2 Not Available [facility] ([facility]) [address] [facility], [place], [address], 12/12/2024 18:43:17 12/13/19 25 12/12/2024 CBC AUTO W DIFF basophil# 0.0 cell/ mcL 0.0-1. 0 Not Available [facility] ([facility]) [address] [place], [address], 12/12/2024 18:43:17 12/13/19 25 12/12/2024 CBC AUTO W DIFF immature gramulocytes # 0.01 K/uL Not Available [facility] ([facility]) [address] [facility], [place], [address], 12/12/2024 18:43:17 12/13/19 25 12/12/2024 CBC AUTO W DIFF nucleated red blood cells # 0.00 K/uL Not Available [facility] ([facility]) [address], [place], [address], 12/12/2024 18:43:17 12/13/19 25 12/12/2024 CBC AUTO W DIFF manual differential YES Not Available [facility] ([facility]) [address] [facility], [place], [address], 12/12/2024 18:43:17 12/13/19 25 12/12/2024 CBC AUTO W DIFF segmented neutrophil 75 % 42-76 Not Available [facility] ([facility]) [address] [facility], [place], [address], 12/12/2024 18:43:17 12/13/19 25 12/12/2024 CBC AUTO W DIFF lymphocyte 15 % 15-41 Not Available [facility] ([facility]) [address] [place], [address], 12/12/2024 18:43:17 12/13/19 25 12/12/2024 CBC AUTO W DIFF monocyte 7 % 2-9 Not Available [facility] ([facility]) [address] [place], [address], 12/12/2024 18:43:17 12/13/19 25 12/12/2024 CBC AUTO W DIFF eosinophil 3 % 0-3 Not Available [facility] ([facility]) [address] [place], [address], 12/12/2024 18:43:17 12/13/19 25 12/12/2024 CBC AUTO W DIFF nucleated RBC's 1 % 0-1 Not Available [facility] ([facility]) [address] [place], [address], 12/12/2024 18:43:17 12/13/19 25 12/12/2024 CBC AUTO W DIFF platelet estimate DECREA SED adequa te delta Not Available [facility] ([facility]) [address] , [place], [address], 12/12/2024 18:43:17 12/13/19 25 12/12/2024 CBC AUTO W DIFF platelet morphology NORMAL normal Not Available [facility] ([facility]) [address], [place], [address], 12/12/2024 18:43:17 12/13/19 25 12/12/2024 CBC AUTO W DIFF RBC morphology ABNORM AL normal delta Not Available [facility] ([facility]) [address], [place], [address], 12/12/2024 18:43:17 12/13/19 25 12/12/2024 CBC AUTO W DIFF anisocytosis 2+ none seen Not Available [facility] ([facility]) [address] [facility], [place], [address], 12/12/2024 18:43:17 12/13/19 25 12/12/2024 CBC AUTO W DIFF hypochromia 2+ none seen Not Available [facility] ([facility]) [address], [place], [address], 12/12/2024 18:43:17 12/13/19 25 12/16/2024 CHRON IC LEUKE MAXIMUS/L YMPHO INEZ specimen type Traci Guillermo Perip heral blood Not Available [facility] ([facility]) [address], [place], [address], 12/16/2024 17:11:04 12/13/19 25 12/16/2024 CHRON IC LEUKE MAXIMUS/L YMPHO MA clinical information Commen t . Cullen eunice ng CBC dated 2024 shows pancy topen ia. WBC count 2.9, RBC 4.12, HGB 9.0, PLT 93K, Aly 2.2, Lym 0.4, Mon 0.2. Not Available [facility] ([facility]) [address], [place], [address], 12/16/2024 17:11:04 12/13/19 25 12/16/2024 CHRON IC LEUKE MAXIMUS/L YMPHO MA comment: Commdora t . Each antib kobi in this assay was utili zed to asses s for poten tial abnor malit ies of studi ed cell popul ation s or to alfredo cteri ze ident ified abnor malit ies. . This test was devel oped and its perfo rmanc e alfredo cteri stics deter mined by [facility]. It has not been clear ed or appro shantelle by the U.S. Food and Drug Admin istra tion. . The FDA has deter mined that such clear ance or appro farheen is not neces duyen. This test is used for clini sourav purpo ses. It shoul d not be regar ded as inves tigat ional or for resea rc. Perfo rmed at: -[facility] - [facility] [address] [facility], [place] [address] Lab Direc tor: Jimenez Beaulieu [facility] , Phone : [phone] Perfo rmed at: TG - [facility] [address] , [place] [address] Lab Direc tor: Jimenez Beaulieu [facility] , Phone : [phone] Not Available [facility] ([facility]) [address], [place], [address], 12/16/2024 17:11:04 12/13/19 25 12/16/2024 CHRON IC LEUKE MAXIMUS/L YMPHO MA flow comment Commdora t . Previ ous pheno typin g resul t is revie wed. Not Available [facility] ([facility]) [address], [place], [address], 12/16/2024 17:11:04 12/13/19 25 12/16/2024 CHRON IC LEUKE MAXIMUS/L YMPHO MA flow interpretati on Commen t . No signi fican t immun ophen otypi c abnor malit y detec eve Not Available [facility] ([facility]) [address], [place], [address], 12/16/2024 17:11:04 12/13/19 25 12/16/2024 CHRON IC LEUKE MAXIMUS/L YMPHO MA leukocyte assessment Commen t . No monoc lonal B cell popul ation is detec eve. kappa :vu da ratio 1.9 There is no loss of, or aberr ant expre ssion of, the matta T ce ll antig ens to sugge st a neopl astic T cell proce ss. CD4:C D8 ratio 6.4 No circu latin g blast s are detec eve. There is no immun ophen otypi c evide nce of abnor mal myelo id m atura tion. Shilo sis of the leuko cyte popul ation shows : granu locyt es 76% , monoc ytes 7%, lymph ocyte s 17%, blast s <0.1% , B cells 2%, T cells 11%, NK c ells 4%. Not Available [facility] ([facility]) [address] [facility], [place], [address], 12/16/2024 17:11:04 12/13/19 25 12/16/2024 CHRON IC LEUKE MAXIMUS/L YMPHO MA resulting path name Commen t . Nessa allen M.D. Not Available [facility] ([facility]) [address], [place], [address], 12/16/2024 17:11:04 12/13/19 25 12/16/2024 CHRON IC [...] Mel l CD64 Mel l Not Available [facility] ([facility]) [address] [facility], [place], [address], 12/16/2024 17:11:04 12/13/19 25 12/16/2024 CHRON IC LEUKE MAXIMUS/L YMPHO MA analysis and gating strategy Commen t . 8 color shilo sis with CD45/ SSC gatin g Techn ical- Shilo sis perfo rmed at [facility], [address] , [place] [address] , Direc tor: Jimenez Beaulieu , [facility] Not Available [facility] ([facility]) [address] [facility], [place], [address], 12/16/2024 17:11:04 12/13/19 25 12/16/2024 CHRON IC LEUKE MAXIMUS/L YMDALIAO INEZ viability Commen t . 92% Not Available [facility] ([facility]) [address] [facility], [place], [address], 12/16/2024 17:11:04 12/14/19 25 12/13/2024 HGB/H CT POSTT RANSF USION HGB 8.7 gm/dL 13.5-1 8.0 low Not Available [facility] ([facility]) [address] [facility], [place], [address], 12/13/2024 16:59:28 12/14/19 25 12/13/2024 HGB/H CT POSTT RANSF USION HCT 31.3 % 42.0-5 2.0 low Not Available [facility] ([facility]) [address], [place], [address], 12/13/2024 16:59:28 12/17/19 25 12/17/2024 HGB+H CT hemoglobin 8.4 g/dL 13.0-1 7.7 below low normal Not Available [facility] ([facility]) [address], [place], [address], 12/17/2024 07:13:45 12/17/19 25 12/17/2024 HGB+H CT hematocrit 30.2 % 37.5-5 1.0 below low normal Not Available [facility] ([facility]) [address], [place], [address], 12/17/2024 07:13:45 01/01/20 25 12/31/2024 COMP METAB OLIC PANEL sodium 144 mmol/ L 136-14 5 Not Available [facility] ([facility]) [address], [place], [address], 12/31/2024 14:26:32 01/01/20 25 12/31/2024 COMP METAB OLIC PANEL potassium 4.4 mmol/ L 3.6-5. 0 Not Available [facility] ([facility]) [address], [place], [address], 12/31/2024 14:26:32 01/01/20 25 12/31/2024 COMP METAB OLIC PANEL chloride 107 mmol/ L 98-107 Not Available [facility] ([facility]) [address] [facility], [place], [address], 12/31/2024 14:26:32 01/01/20 25 12/31/2024 COMP METAB OLIC PANEL carbon dioxide 29.0 mmol/ L 21.0-3 2.0 Not Available [facility] ([facility]) [address] [facility], [place], [address], 12/31/2024 14:26:32 01/01/20 25 12/31/2024 COMP METAB OLIC PANEL anion gap 12.4 Not Available [facility] ([facility]) [address], [place], [address], 12/31/2024 14:26:32 01/01/20 25 12/31/2024 COMP METAB OLIC PANEL glucose 89 mg/dL 70-120 Not Available [facility] ([facility]) [address], [place], [address], 12/31/2024 14:26:32 01/01/20 25 12/31/2024 COMP METAB OLIC PANEL BUN 22 mg/dL 7-18 high Not Available [facility] ([facility]) [address], [place], [address], 12/31/2024 14:26:32 01/01/20 25 12/31/2024 COMP METAB OLIC PANEL creatinine 1.4 mg/dL 0.6-1. 3 high Not Available [facility] ([facility]) [address], [place], [address], 12/31/2024 14:26:32 01/01/20 25 12/31/2024 COMP METAB [...] ge ing kiney funct ion. Not Available [facility] ([facility]) [address], [place], [address], 12/31/2024 14:26:32 01/01/20 25 12/31/2024 COMP METAB OLIC PANEL osmolality (calculated) 302 mOsm/ kg 275-30 1 high OSMOL ALITY IS A CALCU LATIO N UTILI ZING THE SERUM /PLAS MA SODIU M, GLUCO SE AND UREA NITRO GEN (BUN) LEVEL S. FOR THE MOST ACCUR ATE RESUL T A MEASU RED SERUM OSMOL ALITY IS DWIGHT BEARDENAlexander. Not Available [facility] ([facility]) [address] [facility], [place], [address], 12/31/2024 14:26:32 01/01/20 25 12/31/2024 COMP METAB OLIC PANEL total protein 6.5 g/dL 6.4-8. 2 Not Available [facility] ([facility]) [address] [facility], [place], [address], 12/31/2024 14:26:32 01/01/20 25 12/31/2024 COMP METAB OLIC PANEL albumin 2.7 g/dL 3.4-5. 0 low Not Available [facility] ([facility]) [address] [facility], [place], [address], 12/31/2024 14:26:32 01/01/20 25 12/31/2024 COMP METAB OLIC PANEL globulin 3.8 Not Available [facility] ([facility]) [address] [facility], [place], [address], 12/31/2024 14:26:32 01/01/20 25 12/31/2024 COMP METAB OLIC PANEL alb/glob ratio 0.7 0.7-2 Not Available [facility] ([facility]) [address], [place], [address], 12/31/2024 14:26:32 01/01/20 25 12/31/2024 COMP METAB OLIC PANEL calcium 8.6 mg/dL 8.5-10 .5 Not Available [facility] ([facility]) [address] [facility], [place], [address], 12/31/2024 14:26:32 01/01/20 25 12/31/2024 COMP METAB OLIC PANEL bilirubin total 0.80 mg/dL 0.10-1 .00 Not Available [facility] ([facility]) [address] , [place], [address], 12/31/2024 14:26:32 01/01/20 25 12/31/2024 COMP METAB OLIC PANEL AST (SGOT) 29 U/L 0-37 Not Available [facility] ([facility]) [address], [place], [address], 12/31/2024 14:26:32 01/01/20 25 12/31/2024 COMP METAB OLIC PANEL ALT (SGPT) 25 U/L 0-65 Not Available [facility] ([facility]) [address] , [place], [address], 12/31/2024 14:26:32 01/01/20 25 12/31/2024 COMP METAB OLIC PANEL alk phosphatase 127 U/L 46-116 high Not Available [facility] ([facility]) [address] , [place], [address], 12/31/2024 14:26:32 01/01/20 25 12/31/2024 CBC AUTO W DIFF WBC 1.7 K/uL 4.0-10 .5 critical low Not Available [facility] ([facility]) [address] , [place], [address], 12/31/2024 15:15:43 01/01/20 25 12/31/2024 CBC AUTO W DIFF RBC 3.5 M/mm3 4.7-6. 1 low Not Available [facility] ([facility]) [address] , [place], [address], 12/31/2024 15:15:43 01/01/20 25 12/31/2024 CBC AUTO W DIFF HGB 7.8 gm/dL 13.5-1 8.0 low Not Available [facility] ([facility]) [address] , [place], [address], 12/31/2024 15:15:43 01/01/20 25 12/31/2024 CBC AUTO W DIFF HCT 28.0 % 42.0-5 2.0 low Not Available [facility] ([facility]) [address] , [place], [address], 12/31/2024 15:15:43 01/01/20 25 12/31/2024 CBC AUTO W DIFF MCV 80.0 fL 78-100 Not Available [facility] ([facility]) [address], [place], [address], 12/31/2024 15:15:43 01/01/20 25 12/31/2024 CBC AUTO W DIFF MCH 22.3 pg 27-31 low Not Available [facility] ([facility]) [address] , [place], [address], 12/31/2024 15:15:43 01/01/20 25 12/31/2024 CBC AUTO W DIFF MCHC 27.9 g/dL 32-36 low Not Available [facility] ([facility]) [address] , [place], [address], 12/31/2024 15:15:43 01/01/20 25 12/31/2024 CBC AUTO W DIFF RDW 18.3 % 11.5-1 4.0 high Not Available [facility] ([facility]) [address] , [place], [address], 12/31/2024 15:15:43 01/01/20 25 12/31/2024 CBC AUTO W DIFF platelet count 75 K/uL 150-45 0 low Not Available [facility] ([facility]) [address], [place], [address], 12/31/2024 15:15:43 01/01/20 25 12/31/2024 CBC AUTO W DIFF MPV 11.8 fL 6-9.5 high Not Available [facility] ([facility]) [address] [place], [address], 12/31/2024 15:15:43 01/01/20 25 12/31/2024 CBC AUTO W DIFF neutrophil% 76.4 % 43-65 high Not Available [facility] ([facility]) [address] [facility], [place], [address], 12/31/2024 15:15:43 01/01/20 25 12/31/2024 CBC AUTO W DIFF lymphocyte% 15.5 % 20.5-4 5.5 low Not Available [facility] ([facility]) [address] [facility], [place], [address], 12/31/2024 15:15:43 01/01/20 25 12/31/2024 CBC AUTO W DIFF monocyte% 5.2 % 5.5-11 .7 low Not Available [facility] ([facility]) [address] [place], [address], 12/31/2024 15:15:43 01/01/20 25 12/31/2024 CBC AUTO W DIFF eosinophil% 1.7 % 0.9-2. 9 Not Available [facility] ([facility]) [address] [place], [address], 12/31/2024 15:15:43 01/01/20 25 12/31/2024 CBC AUTO W DIFF basophil% 0.6 % 0.2-1. 0 Not Available [facility] ([facility]) [address] [place], [address], 12/31/2024 15:15:43 01/01/20 25 12/31/2024 CBC AUTO W DIFF immature granulocytes % 0.6 % 0.0-0. 8 Not Available [facility] ([facility]) [address] [place], [address], 12/31/2024 15:15:43 01/01/20 25 12/31/2024 CBC AUTO W DIFF nucleated red blood cells % 0.0 % Not Available [facility] ([facility]) [address] [facility], [place], [address], 12/31/2024 15:15:43 01/01/20 25 12/31/2024 CBC AUTO W DIFF neutrophil# 1.3 K/uL 2.2-4. 8 low Not Available [facility] ([facility]) [address] [facility], [place], [address], 12/31/2024 15:15:43 01/01/20 25 12/31/2024 CBC AUTO W DIFF lymphocyte# 0.3 cell/ mcL 1.3-2. 9 low Not Available [facility] ([facility]) [address] [facility], [place], [address], 12/31/2024 15:15:43 01/01/20 25 12/31/2024 CBC AUTO W DIFF monocyte# 0.1 cell/ mcL 0.3-0. 8 low Not Available [facility] ([facility]) [address] [facility], [place], [address], 12/31/2024 15:15:43 01/01/20 25 12/31/2024 CBC AUTO W DIFF eosinophil# 0.0 cell/ mcL 0-0.2 Not Available [facility] ([facility]) [address] [place], [address], 12/31/2024 15:15:43 01/01/20 25 12/31/2024 CBC AUTO W DIFF basophil# 0.0 cell/ mcL 0.0-1. 0 Not Available [facility] ([facility]) [address] [place], [address], 12/31/2024 15:15:43 01/01/20 25 12/31/2024 CBC AUTO W DIFF immature gramulocytes # 0.01 K/uL Not Available [facility] ([facility]) [address], [place], [address], 12/31/2024 15:15:43 01/01/20 25 12/31/2024 CBC AUTO W DIFF nucleated red blood cells # 0.00 K/uL Not Available [facility] ([facility]) [address], [place], [address], 12/31/2024 15:15:43 01/01/20 25 12/31/2024 CBC AUTO W DIFF manual differential NO Not Available [facility] ([facility]) [address], [place], [address], 12/31/2024 15:15:43 01/01/20 25 12/31/2024 CBC AUTO W DIFF platelet estimate DECREA SED adequa te delta Not Available [facility] ([facility]) [address], [place], [address], 12/31/2024 15:15:43 01/01/20 25 12/31/2024 CBC AUTO W DIFF platelet morphology NORMAL normal Not Available [facility] ([facility]) [address], [place], [address], 12/31/2024 15:15:43 01/01/20 25 12/31/2024 CBC AUTO W DIFF RBC morphology ABNORM AL normal delta Not Available [facility] ([facility]) [address], [place], [address], 12/31/2024 15:15:43 01/01/20 25 12/31/2024 CBC AUTO W DIFF anisocytosis 2+ none seen Not Available [facility] ([facility]) [address], [place], [address], 12/31/2024 15:15:43 01/01/20 25 12/31/2024 CBC AUTO W DIFF microcytosis 1+ none seen Not Available [facility] ([facility]) [address], [place], [address], 12/31/2024 15:15:43 01/01/20 25 12/31/2024 CBC AUTO W DIFF macrocytosis SLIGHT none seen Not Available [facility] ([facility]) [address], [place], [address], 12/31/2024 15:15:43 01/01/20 25 12/31/2024 CBC AUTO W DIFF hypochromia 3+ none seen Not Available [facility] ([facility]) [address], [place], [address], 12/31/2024 15:15:43 01/01/20 25 12/31/2024 CBC AUTO W DIFF rouleaux SLIGHT none seen Not Available [facility] ([facility]) [address], [place], [address], 12/31/2024 15:15:43 01/01/20 25 12/31/2024 CBC AUTO W DIFF stomatocytes SLIGHT none seen Not Available [facility] ([facility]) [address] [facility], [place], [address], 12/31/2024 15:15:43 01/10/20 25 01/23/2025 PATHO LOGY SPECI MEN pathology specimen SEE JOHNSON TROY STAIN S: N/A Not Available [facility] ([facility]) [address] [facility], [place], [address], 01/23/2025 18:03:09 12/13/19 25 12/06/2024 MRI proce dure (PROC ) No observ ation record ed. [email or web address] [facility] (Med Record) [address], [place], [address], 2024 10:13:14 12/17/19 25 12/06/2024 MRI, cervi sourav spine , w/wo contr ast No observ ation record ed. [email or web address] Not Available 2024 11:26:57 12/21/19 25 12/20/2024 RF, small bowel follo w-thr ough study No observ ation record ed. [email or web address] [facility] [address], [place], [address], 2024 10:13:47 01/10/20 25 01/09/2025 [facility] [address] [place] [address] Phone: Fax: Name: BARTOLO HENDRICKSON Exam Date: 025 : 962 Age 64 years Gender : M Access ion: [id number] Physic sandie: SANDRA MUÑOZ Facili ty: [facility] Facili ty HSV: Outpat ient Exam: CT BIOPSY BONE MARROW PROCED URE: CT-HORTENSIA DED BONE MARROW BIOPSY PHYSIC SANDIE ADMINI STERED CONSCI OUS SEDATI ON ATTEND ING Physic sandie: Dr. Ten mendes MD PRIMAR Y OPERAT OR: Marcio luong, PLEATER HAND-C. Direct Superv ision: Willie nolasco PA-C. CLINIC AL HISTOR Y: Anemia PRIORS : 5 CT abd. COMMEN T: One or more dose reduct ion techni ques (e.g., Automa eve exposu re contro l, adjust ment of the mA and/or kV accord ing to the patien t size, use of iterat mirella recons tructi on techni que) utiliz ed for this examin ation. TECHNI SOURAV: Inform ed consen t was obtain ed [...] ucer needle was advanc ed into the manufacturing executive ior right iliac bone. Next, the inner [...] under the superv ision of the physic sandie. Pulse oximet ry, heart rate and blood pressu re were contin uously monito red by the jade flores staff presen t. The physic sandie spent a total of 30 minute s [...] Lidoca ine. COMPLI CATION S: None. ESTIMA EVE BLOOD LOSS: 20 mL. SPECIM ENS: 20 ml bone marrow aspira te, 1 core specim en. FINDIN GS: Satisf actory biopsy needle positi oning within the manufacturing executive ior right ilium bone. IMPRES YUNG: Uncomp licate d CT-hortensia ded bone marrow biopsy as descri bed. Pathol thomas martin Electr onical ly signed by: Ten mendes MD 2024 12:08 PM EDT RP Workst ation: [id number] Dictat ed By: Samra mendes Ten Legall y romana ticmerrill d by SAMRA OMALLEY 01-09 09:44: 21 Transc ribed By: Transc ribed On: 025 9:44 AM Electr onical ly signed by: Samra cinthyaTen 025 Thank you for referr BARTOLO Viramontes to [facility] Hospit al. Legall y authdora ticate d by SAMRA OMALLEY 01-09 09:44: 21 CC'ed Logic: Orderi ng Provid er: WILLY SOTOMAYOR Attend ing Provid er: WILLY SOTOMAYOR Referr ing Provid er: WILLY SOTOMAYOR Admitt ing Provid er: WILLY [facility]OMAYOR [facility] [place] [address] - Physical Therapy [address], [place], [address], 01/09/2025 14:07:33 Result Notes None recorded. Problems Name Problem SNOMED Code Status Onset Date Resolution Date Notes Provider Name and Address Organization Details Recorded Time Weakness present 401049697 Active Deirdre Workman null, [place] [facility] [place] [facility] [place] 14:32:40 Anemia 386941818 Active Deirdre Workman [place], [place] [facility] [place] 14:32:40 High troponin I level 657258422 Active Deirdre Workman [place], [place] [facility] [place] 14:32:40 Dyspnea on exertion 60466207 Active Deirdre Workman [place] [facility] [place] 14:32:40 Gastrointe stinal hemorrhage 78356339 Active Deirdre Workman [place] [facility] [place] 14:32:40 Atheroscle rosis of coronary artery without angina pectoris 0580197488811 03 Active 2023 Maxi Goodwin MD [address], [place], [address] , [place] [facility] [place] 12/12/202 4 13:56:37 Essential hypertensi on 07010080 Active 2023 Maxi Goodwin MD [address] [facility], [place], [address] , [place] [facility] [place] 4 13:56:52 Heart murmur 40564647 Active 2023 Maxi Goodwin MD [address] [facility], [place], [address] , [place] [facility] [place] 4 14:53:45 Anemia due to blood loss 513188985 Active 2024 Slade Lennon PA-C [address] [facility], [place], [address] , [place] [facility] [place] 5 20:36:19 Abnormal movement 068058513 Active 2024 Slade Lennon PA-C [address] , [place], [address] , [place] [facility] [place] 5 13:24:16 Cirrhosis - non-alcoho lic 523973340 Active 2024 Slade Lennon PA-C [address] , [place], [address] , [place] [facility] [place] 5 22:13:33 Anxiety 49863480 Active 2021 Tarun Hopkins null[place] [facility] [place] 2 13:21:47 Chronic pain 14979416 Active 2021 Tarun [place] [facility] [place] 2 13:21:53 Hypertensi ve disorder 72150471 Active 2021 Tarun Hopkins [place] [facility] 2 13:22:00 Diabetes mellitus 35851879 Active 2021 Tarun [place] [facility] [place] [facility] [place] 2 13:22:16 Cirrhosis of liver 32404768 Active 2023 Slade Lennon PA-C [address], [place], [address] , [place] [facility] [place] 4 10:34:13 Iron deficiency anemia 03565075 Active 2023 Slade Lennon PA-C [address], [place], [address] , [place] [facility] & [place] 4 10:34:22 Vascular ectasia of gastric antrum 35202932 Active 2023 Slade Lennon PA-C [address], [place], [address] , [place] [facility] & [place] 4 10:34:26 Upper gastrointe stinal bleeding 78976735 Active 2023 Slade Lennon PA-C [address], [place], [address] , [place] [facility] & [place] 4 10:34:38 Bilateral lower limb edema 853219341 Active 2023 Slade Lennon PA-C [address], [place], [address] , [place] [facility] & [place] 4 12:54:25 Hepatic encephalop athy 62411813 Active 2023 Slade Lennon PA-C [address], [place], [address] , [place] [facility] & [place] 4 13:42:22 Problem Notes None recorded. Procedures Surgical History Date Name Laterality Status Provider Name and Address Organization Details Recorded Time 12/17/19 Venipuncture Gastro completed Janell Ibarra LPKENA [facility] & [place] 12/16/2024 13:55:02 cholecystectomy completed Deirdre WOOD [facility] & [place] 10/07/2022 09:58:34 Knee arthroscopy/surgery completed Deirdre WOOD [facility] & [place] 10/07/2022 09:58:40 Imaging Results Imaging Date Name Status LastModified by Organiz ation Details LastModified Time 12/06/2024 MRI procedure (PROC) completed [address] (Med Record) [address], [place], [address], 2024 10:13:14 12/06/2024 MRI, cervical spine, w/wo contrast [place] [address] Information not available 12/16/2024 11:26:57 12/20/2024 RF, small bowel follow-through study completed [address], [place], [address], 2024 10:13:47 01/09/2025 CT biopsy bone marrow completed [address] - Physical Therapy [address] [facility], [place], [address], 01/09/2025 14:07:33 Procedure Notes None recorded. Medical Equipment None Reported. Allergies Allergen ID Allergen Name Allergen Category Reaction Reaction Severity Criticality Documentation Date Start Date Code Code System Note Provider Name and Address Organization Details Recorded Time [id number] celecoxib medicatio n Not available Not available Not available 08/21/2024 45345 7 RxNorm Other react ions and sever ities : 'Adve rse react ion to subst ance' . Deirdre Ol[place]stead [place] cast[place] [facility] 4 14:32:25 39412 Celebrex medicatio n Not available Not available Not available 06/28/2022 85706 7 RxNorm [place] - [place] [facility] 2 10:41:02 Medications Name Sig Start Date [...] Updated DateTime 5 177.8 cm 44.3 kg/m2 141775. 25 g 97.6 [degF] 97 % 97 % 60 /min 63 /min 108 mm[Hg] 91 mm[Hg] Janell Ruff [facility] & [place] 5 13:05:54 Date Recorded Body height Body temperature Oxygen saturation Oxygen saturation in Arterial blood by Pulse oximetry Heart rate Respiratory rate Systolic blood pressure Diastolic blood pressure Provider Name and Address Organization Details Last Updated DateTime 5 177.8 cm 98 [degF] 95 % 95 % 68 /min 24 /min 105 mm[Hg] 48 mm[Hg] Deirdre Ramirezbob [facility] & [place] 5 13:45:00 Date Recorded Body height Body mass index (BMI) Body weight Body temperature Heart rate Systolic blood pressure Diastolic blood pressure Provider Name and Address Organization Details Last Updated DateTime 5 177.8 cm 42.2 kg/m2 116663. 88 g 99.7 [degF] 87 /min 154 mm[Hg] 97 mm[Hg] Jaylan rolon [facility] & [place] 5 10:55:18 Social History Question Answer Notes LastModified by Organizat ion Details LastModified Time Tobacco Smoking Status Never Smoker Deirdre Ramirezbob castrejon [facility] & [place] 10/07/2022 09:58:16 What Is Your Level Of Caffeine Consumption? Moderate [email or web address] Information not available 09/12/2024 Sex: Unknown Functional Status Question Answer Note LastModified by Organizat ion Details LastModified Time Do you use any illicit or recreational drugs? No Information not available 10/07/2022 What is your level of alcohol consumption? None [email or web address] Information not available 10/07/2022 Mental Status None recorded. Family History Relationship Description Onset Age of this Age Resolved Age Notes LastModified by Organization Details LastModified Time Father Father stomac h cancer [email or web address] Not available 10/07/2022 09:57:37 Mother Mother COPD [email or web address] Not available 10/07 09:58:04 Medical History No medical history recorded. Immunizations Vaccine Type Date Status Note Provider Nam e and Address Organization Details Recorded Time Influenza, split virus, quadrivalent, preservative 9 completed Deirdre Workman [place] [facility] [place] 02/03/2023 09:34:06 COVID-19 vaccine, vector-nr, rS-Ad26, PF, 0.5 mL 1 completed Deirdre Work[place] 02/03/2023 09:34:06 COVID-19 vaccine, vector-nr, rS-Ad26, PF, 0.5 mL 1 completed Deirdre Work[place] 02/03/2023 09:34:06 COVID-19, mRNA, LNP-S, bivalent, PF, 30 mcg/0.3 mL dose 2 completed Deirdre Work[place] 02/03/2023 09:34:06 Tdap 5 completed Deirdre Work[place] 02/03/2023 09:34:06 Influenza, split virus, trivalent, PF 7 completed Deirdre [place] 02/03/2023 09:34:06 Influenza, split virus, trivalent, PF 3 completed De[place] [facility] [place] 02/03/2023 09:34:06 Hep B, adult 6 completed Deirdre [place] [facility] [place] 02/03/2023 09:34:06 Hep B, adult 5 completed Deirdre [place] [facility] [place] 02/03/2023 09:34:06 Hep B, adult 5 completed Deird[place] [facility] [place] 02/03/2023 09:34:06 Influenza, split virus, quadrivalent, PF 0 completed Deird[place] [facility] [place] 02/03/2023 09:34:06 Influenza, split virus, quadrivalent, PF 1 completed De[place] [facility] [place] 02/03/2023 09:34:06 Influenza, split virus, quadrivalent, PF 5 completed Deird[place] [facility] [place] 02/03/2023 09:34:06 Influenza, split virus, quadrivalent, PF 7 completed Deird[place] [facility] [place] 02/03/2023 09:34:06 Influenza, split virus, quadrivalent, PF 2 completed De[place] [facility] [place] 02/03/2023 09:34:06 Influenza, split virus, quadrivalent, PF 6 completed Deird[place] [facility] [place] 02/03/2023 09:34:06 Influenza, split virus, trivalent, PF 4 completed Deirdre [place] [facility] [facility] [place] 12/12/2024 13:08:09 Past Encounters Encounter ID Performer Location Encounter Start Date Encounter Closed Date Diagnosis/Indication Diagnosis SNOMED-CT Code Diagnosis ICD10 Code Diagnosis Note [id number] Sandra Gregg PA-C [facility] [address] [facility] [address] [place] [address] 06/28/2022 10:17:40 06/28/2022 11:14:24 Leukopenia 44850430 D72.819 Patient labs performed per his primary [...] Hemoglobin 14.2 and hematocrit 42. Platelet count 55589 Discussed leukopenia likely secondary to cirrhosis. Will order additional labs for further evaluation . Will follow up with further recommenda tions. Anemia [id number] D64.9 Patient labs performed per his primary [...] and oral vitamin B12. Thrombocyt openic disorder 872370238 D69.6 Patient labs performed per his primary [...] Hemoglobin 14.2 and hematocrit 42. Platelet count 60393 Discussed thrombocyt openia likely secondary to cirrhosis. Will order additional labs for further evaluation of thrombocyt openia. Will follow up with further recommenda tions. [id number] Sandra Gregg PA-C [facility] [address] [place] [address] 10/07/2022 09:29:52 10/07/2022 10:17:52 Leukopenia 99165188 D72.819 Patient labs performed per his primary [...] Hemoglobin 14.2 and hematocrit 42. Platelet count 63777 Labs on June 28, 2022 with WBC [...] follow up with further recommenda tions. Anemia 276261263 D64.9 Patient labs performed per his primary [...] and oral vitamin B12. Thrombocyt openic disorder 514346132 D69.6 Patient labs performed per his primary [...] Hemoglobin 14.2 and hematocrit 42. Platelet count 12399 Discussed thrombocyt openia likely secondary to cirrhosis. Will order additional labs for further evaluation of thrombocyt openia. Will follow up with further elaina hernandez. [id number] Sarthak Vincent MD [facility] [address] [place] [address] 02/03/2023 09:26:31 02/03/2023 10:11:09 Leukopenia 39731154 D72.819 Patient labs performed per his primary [...] Hemoglobin 14.2 and hematocrit 42. Platelet count 44501 Labs on June 28, 2022 with WBC [...] 3.8. Hemoglobin 11.1. Hematocrit 34.3. Platelet count 13976. MCV 91.5. GFR greater than 60. Albumin 3.2. Total protein 7.1. Normal liver function testing. Patient returns on February 03, 2023. Discussed repeat labs today. Offered ultrasound of the abdomen to look at liver and spleen. Patient did not want proceed. Patient has stopped following up with nephrologi st as well. Encourage patient to resume care with other specialist s. Anemia 908441365 D64.9 Patient labs performed per his primary [...] and oral vitamin B12. Thrombocyt openic disorder 701969783 D69.6 Patient labs performed per his primary [...] Hemoglobin 14.2 and hematocrit 42. Platelet count 17515 Discussed thrombocyt openia likely secondary to cirrhosis. Will order additional labs for further evaluation of thrombocyt openia. Will follow up with further recommenda tions. [id number] Slade Lennon PA-C [facility] [address] [place] [address] 01/23/2024 09:46:05 01/23/2024 10:50:50 Cirrhosis of liver 08389714 K74.60 Iron defic iency anemia 35954479 D50.9 Vascular e ctasia of gastric antrum 83229530 K31.819 Upper gastrointestinal bleeding 69360898 K92.89 Bilateral lower limb edema 779465007 R60.0 [id number] Slade Lennon PA-C [facility] [address] [place] [address] 02/22/2024 13:01:11 02/22/2024 13:41:58 Cirrhosis of liver 54757916 K74.60 Iron defic iency anemia 15554893 D50.9 Vascular e ctasia of gastric antrum 24041165 K31.819 Upper gastrointestinal bleeding 67963046 K92.89 Bilateral lower limb edema 251934729 R60.0 [id number] Sandra Gregg PA-C [facility] [address] [facility] [address] [place] [address] 05/07/2024 14:15:42 05/07/2024 14:51:08 Leukopenia 02809054 D72.819 Patient labs performed per his primary [...] Hemoglobin 14.2 and hematocrit 42. Platelet count 91107 Labs on June 28, 2022 with WBC [...] 3.8. Hemoglobin 11.1. Hematocrit 34.3. Platelet count 23287. MCV 91.5. GFR greater than 60. Albumin [...] cell count 2.3. Hemoglobin 11.1. Platelet count 00698. Serum iron low at 24 and iron [...] weeks after completion of IV iron. Anemia 006991076 D64.9 Patient labs performed per his primary [...] and oral vitamin B12. Thrombocyt openic disorder 030705781 D69.6 Patient labs performed per his primary [...] Hemoglobin 14.2 and hematocrit 42. Platelet count 23314 Discussed thrombocyt openia likely secondary to cirrhosis. [id number] Slade Lennon PA-C [facility] [address] [facility] [address] [place] [address] 06/18/2024 12:28:35 06/18/2024 13:45:46 Cirrhosis of liver 74350526 K74.60 Iron defic iency anemia 95903183 D50.9 Vascular e ctasia of gastric antrum 29512468 K31.819 Upper gastrointestinal bleeding 22632607 K92.89 Bilateral lower limb edema 168960428 R60.0 Hepatic encephalopathy 09326730 K76.82 [id number] Sandra Gregg PA-C [facility] [address] [facility] [address] [place] [address] 06/24/2024 13:00:29 06/24/2024 13:17:45 Anemia 127378390 D64.9 Patient labs performed per his primary [...] taking oral iron and oral vitamin B12. [id number] Sandra Gregg PA-C [facility] [address] [place] [address] 08/21/2024 13:56:48 08/21/2024 15:11:26 Leukopenia 10721059 D72.819 Patient labs performed per his primary [...] Hemoglobin 14.2 and hematocrit 42. Platelet count 46026 Labs on June 28, 2022 with WBC [...] 3.8. Hemoglobin 11.1. Hematocrit 34.3. Platelet count 53849. MCV 91.5. GFR greater than 60. Albumin 3.2. Total protein 7.1. Normal liver function testing. Patient returns on February 03, 2023. Discussed repeat labs today. Patient had labs per his primary care provider on April 29, 2024 with white blood cell count 2.3. Hemoglobin 11.1. Platelet count 40749. Serum iron low at 24 and iron [...] iron is required at this time. Anemia 775956142 D64.9 Patient labs performed per his primary [...] and oral vitamin B12. Thrombocyt openic disorder 924017321 D69.6 Patient labs performed per his primary [...] Hemoglobin 14.2 and hematocrit 42. Platelet count 11084 Discussed thrombocyt openia likely secondary to cirrhosis. [id number] Maxi Goodwin MD [facility] [address] [place] [address] 09/12/2024 13:28:16 09/12/2024 16:06:00 Atherosclerosis of coronary artery without angina pectoris [id number] 13465 I25.10 remote history of PCI. Continue medical management . Not on any antiplatel et agent due to chronic anemia possibly due to GI blood loss Essential hypertension 82391797 I10 Continue current medication . Keep log Low-salt diet < 2 gm Na/day, Regular exercise Weight loss Heart murmur 41178360 R0 1.1 echo pending [id number] Slade Lennon PA-C [facility] [address] [facility] [address] [place] [address] 11/01/2024 10:44:18 11/01/2024 12:18:22 Cirrhosis of liver 23260719 K74.60 Vascular e ctasia of gastric antrum 77283690 K31.819 Hepatic encephalopathy 18031176 K76.82 Anemia due to blood loss 539640120 D50.0 [id number] Sandra Gregg PA-C [facility] [address] [facility] [address] [place] [address] 12/12/2024 13:02:17 12/12/2024 13:26:58 Leukopenia 34563602 D72.819 Patient labs performed per his primary [...] Hemoglobin 14.2 and hematocrit 42. Platelet count 49844 Labs on June 28, 2022 with WBC [...] 3.8. Hemoglobin 11.1. Hematocrit 34.3. Platelet count 95821. MCV 91.5. GFR greater than 60. Albumin 3.2. Total protein 7.1. Normal liver function testing. Patient returns on February 03, 2023. Discussed repeat labs today. Patient returns on December 12, 2024. Patient was hospitaliz ed at [facility] for a gi bleed 09/30/24-. He had varices banded and received 7 units of blood at that time. Follow up EGD and November 13, 2024 with no evidence of blood loss. Labs on August 21, 2024 with pancytopen ia. White blood cell count 2.1. Hemoglobin 6.7 and hematocrit 23.2. Platelet count 79655. serum iron low at 26 and iron [...] iron is required at this time Anemia 459377732 D64.9 Patient labs performed per his primary [...] required at this time. Thrombocyt openic disorder 817521006 D69.6 Patient labs performed per his primary [...] Hemoglobin 14.2 and hematocrit 42. Platelet count 37786 Discussed thrombocyt openia likely secondary to cirrhosis. MRI of lum bar spine abnormal 468200449 R93.7 Patient returns on December 12, 2024. [...] recently had MRI of his back [facility]. Reviewed MRI today and it states there is diffuse abnormal decreased marrow signal which could be secondary to marrow infiltrati on secondary to neoplasm, hematologi sourav disease, or myelofibro sis. Multilevel degenerati ve disc disease was also noted. Will order labs for further evaluation today. Discussed bone marrow biopsy for further evaluation . Patient agreeable. Will order. History of esophageal varices [id number] 6131677 Z87.19 Patient returns on December 12, 2024. Patient was hospitaliz ed at [facility] for a gi bleed 09/30/24-. He had varices banded and received 7 units of blood at that time. Follow up EGD and November 13, 2024 with no evidence of blood loss. [id number] Slade Lennon PA-C [facility] [address] [facility] [address] [place] [address] 12/16/2024 12:28:41 12/16/2024 13:52:09 Anemia due to blood loss 534103408 D50.0 Cirrhosis of liver 007 K74.60 Hepatic encephalopathy 66808831 K76.82 Vascular e ctasia of gastric antrum 58635883 K31.819 Abnormal movement 263684 002 G25.9 [id number] Sandra Gregg PA-C [facility] [address] [place] [address] 12/31/2024 13:33:20 12/31/2024 14:30:13 Leukopenia 85368927 D72.819 Patient labs performed per his primary [...] Hemoglobin 14.2 and hematocrit 42. Platelet count 94520 Labs on June 28, 2022 with WBC [...] 3.8. Hemoglobin 11.1. Hematocrit 34.3. Platelet count 23744. MCV 91.5. GFR greater than 60. Albumin 3.2. Total protein 7.1. Normal liver function testing. Patient returns on February 03, 2023. Discussed repeat labs today. Patient was hospitaliz ed at [facility] for a GI bleed 09/30/24-. He [...] recently had MRI of his back [facility]. Reviewed MRI and it states there is diffuse abnormal decreased marrow signal which could be secondary to marrow infiltrati on secondary to neoplasm, hematologi sourav disease, or myelofibro sis. Multilevel degenerati ve disc disease was also noted. Discussed bone marrow biopsy for further evaluation . He is taking lactulose for hepatic encephalop athy. Labs per primary care provider November 26, 2024 with normal ammonia. Labs on August 21, 2024 with pancytopen ia. White blood cell count 2.1. Hemoglobin 6.7 and hematocrit 23.2. Platelet count 03931. serum iron low at 26 and iron saturation 6%. Ferritin 13. Labs on December 12, 2024 with pancytopen ia. White blood cell count 2. Patient is asymptomat ic. Patient denies any signs of infection. Leukopenia likely secondary to cirrhosis. Anemia 969251467 D64.9 Patient labs performed per his primary [...] at 982. Patient was hospitaliz ed at [facility] for a GI bleed 09/30/24-. He [...] recently had MRI of his back [facility]. Reviewed MRI and it states there is diffuse abnormal decreased marrow signal which could be secondary to marrow infiltrati on secondary to neoplasm, hematologi sourav disease, or myelofibro sis. Multilevel degenerati ve disc disease was also noted. Discussed bone marrow biopsy for further evaluation . He is taking lactulose for hepatic encephalop athy. Labs per primary care provider November 26, 2024 with normal ammonia. Labs on August 21, 2024 with pancytopen ia. White blood cell count 2.1. Hemoglobin 6.7 and hematocrit 23.2. Platelet count 92691. serum iron low at 26 and iron saturation 6%. Ferritin 13. Patient returns on December 31, 2024. Bone marrow biopsy was ordered at previous visit but it has not been scheduled yet. Will make sure this is scheduled. Labs on December 12, 2024 with pancytopen ia. White blood cell count 2. Hemoglobin 7.1 and hematocrit 26.8. Platelet count 37697. Serum iron low at 19 and iron [...] should the need arise. Thrombocyt openic disorder 676338769 D69.6 Patient labs performed per his primary [...] Hemoglobin 14.2 and hematocrit 42. Platelet count 34686 Discussed thrombocyt openia likely secondary to cirrhosis. MRI of lum bar spine abnormal 085116118 R93.7 Patient states he has had all over muscle spasms for the past 6 months. States he has had multiple falls due to the muscle spasms. He has difficulty eating with utensils at times due to tremors. He has been following up with his primary care provider for this. He recently had MRI of his back [facility]. Reviewed MRI and it states there is diffuse abnormal decreased marrow signal which could be secondary to marrow infiltrati on secondary to neoplasm, hematologi sourav disease, or myelofibro sis. Multilevel degenerati ve disc disease was also noted. Discussed bone marrow biopsy for further evaluation . Patient returns on December 31, 2024. Bone marrow biopsy was ordered at previous visit but it has not been scheduled yet. Will make sure this is scheduled. History of esophageal varices [id number] 8494998 Z87.19 Patient returns on December 12, 2024. Patient was hospitaliz ed at [facility] for a gi bleed 09/30/24-. He had varices banded and received 7 units of blood at that time. Follow up EGD and November 13, 2024 with no evidence of blood loss. Capsule endoscopy 2024. Results are pending. Will follow up. [id number] Slade Lennon PA-C [facility] [address] [facility] [address] [place] [address] 01/27/2025 10:46:31 01/27/2025 12:00:47 Anemia due to blood loss 251176464 D50.0 Cirrhosis of liver 007 K74.60 Hepatic encephalopathy 14927222 K76.82 Vascular e ctasia of gastric antrum 07607467 K31.819 Abnormal movement 719890 002 G25.9 [id number] Sandra Gregg PA-C [facility] [address] [facility] [address] [place] [address] 02/20/2025 11:37:43 02/20/2025 11:56:41 Leukopenia 59752814 D72.819 Patient labs performed per his primary [...] Hemoglobin 14.2 and hematocrit 42. Platelet count 82356 Labs on June 28, 2022 with WBC [...] 3.8. Hemoglobin 11.1. Hematocrit 34.3. Platelet count 70642. MCV 91.5. GFR greater than 60. Albumin 3.2. Total protein 7.1. Normal liver function testing. Patient returns on February 03, 2023. Discussed repeat labs today. Patient was hospitaliz ed at [facility] for a GI bleed 09/30/24-. He [...] recently had MRI of his back [facility]. Reviewed MRI and it states there is diffuse abnormal decreased marrow signal which could be secondary to marrow infiltrati on secondary to neoplasm, hematologi sourav disease, or myelofibro sis. Multilevel degenerati ve disc disease was also noted. Discussed bone marrow biopsy for further evaluation . He is taking lactulose for hepatic encephalop athy. Labs per primary care provider November 26, 2024 with normal ammonia. Labs on August 21, 2024 with pancytopen ia. White blood cell count 2.1. Hemoglobin 6.7 and hematocrit 23.2. Platelet count 22750. serum iron low at 26 and iron saturation 6%. Ferritin 13. Labs on December 31, 2024 with pancytopen ia. White blood cell count 1.7. ANC 1.3. Patient is asymptomat ic. Patient denies any signs of infection. Leukopenia likely secondary to cirrhosis. Anemia 189424988 D64.9 Patient labs performed per his primary [...] at 982. Patient was hospitaliz ed at [facility] for a GI bleed 09/30/24-. He [...] recently had MRI of his back [facility]. Reviewed MRI and it states there is diffuse abnormal decreased marrow signal which could be secondary to marrow infiltrati on secondary to neoplasm, hematologi sourav disease, or myelofibro sis. Multilevel degenerati ve disc disease was also noted. Discussed bone marrow biopsy for further evaluation . He is taking lactulose for hepatic encephalop athy. Labs per primary care provider November 26, 2024 with normal ammonia. Labs on August 21, 2024 with pancytopen ia. White blood cell count 2.1. Hemoglobin 6.7 and hematocrit 23.2. Platelet count 23216. serum iron low at 26 and iron saturation 6%. Ferritin 13. Labs on December 12, 2024 with pancytopen ia. White blood cell count 2. Hemoglobin 7.1 and hematocrit 26.8. Platelet count 80795. Serum iron low at 19 and iron saturation 5%. Ferritin 12. Normal flow cytometry. Patient received blood transfusio n 2 units prbcs and infusional iron. Labs on December 31, 2024 with hemoglobin 7.8 Audio only telephone visit on February 20, 2025 began at 11:14 a.m. and ended at 11:30 a.m. Patient is located at his home and provider is located at [facility]. Consent obtained from patient. Patient lives near [facility]. Patient has difficultl y traveling to due [...] GAVE. Will fax lab order today to [facility]. Will follow up labs. Thrombocyt openic disorder 988204692 D69.6 Patient labs performed per his primary [...] Hemoglobin 14.2 and hematocrit 42. Platelet count 52461 Discussed thrombocyt openia likely secondary to cirrhosis. MRI of lum bar spine abnormal 745094771 R93.7 Patient states he has had all over muscle spasms for the past 6 months. States he has had multiple falls due to the muscle spasms. He has difficulty eating with utensils at times due to tremors. He has been following up with his primary care provider for this. He recently had MRI of his back [facility]. Reviewed MRI and it states there is diffuse abnormal decreased marrow signal which could be secondary to marrow infiltrati on secondary to neoplasm, hematologi sourav disease, or myelofibro sis. Multilevel degenerati ve disc disease was also noted. Discussed bone marrow biopsy for further evaluation . Benign bone marrow biopsy January 09, 2025. History of esophageal varices [id number] 3688390 Z87.19 Patient returns on December 12, 2024. Patient was hospitaliz ed at [facility] for a gi bleed 09/30/24-. He had varices banded and received 7 units of blood at that time. Follow up EGD and November 13, 2024 with no evidence of blood loss. 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 Iron defic iency anemia due to blood loss 656225828 D50.0 Patient labs performed per his primary [...] at 982. Patient was hospitaliz ed at [facility] for a GI bleed 09/30/24-. He [...] recently had MRI of his back [facility]. Reviewed MRI and it states there is diffuse abnormal decreased marrow signal which could be secondary to marrow infiltrati on secondary to neoplasm, hematologi sourav disease, or myelofibro sis. Multilevel degenerati ve disc disease was also noted. Discussed bone marrow biopsy for further evaluation . He is taking lactulose for hepatic encephalop athy. Labs per primary care provider November 26, 2024 with normal ammonia. Labs on August 21, 2024 with pancytopen ia. White blood cell count 2.1. Hemoglobin 6.7 and hematocrit 23.2. Platelet count 42799. serum iron low at 26 and iron saturation 6%. Ferritin 13. Labs on December 12, 2024 with pancytopen ia. White blood cell count 2. Hemoglobin 7.1 and hematocrit 26.8. Platelet count 96359. Serum iron low at 19 and iron saturation 5%. Ferritin 12. Normal flow cytometry. Patient received blood transfusio n 2 units prbcs and infusional iron. 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 Will fax lab order today to [facility]. Will follow up labs. Health Concerns Section Related Observation LastModified by Organization Detai ls LastModified Time None Recorded Concern Status LastModified by Organization Details LastModified Time None Recorded Advance Directives Directive None Recorded Payers Insurance Date Sequence Insurance Name Policy Number Policy Grimm Covered Member ID Grimm Member ID Guarantor Name 02/17/2025 1 [facility] (MEDICARE REPLACEMENT/A DVANTAGE - HMO) [id number] Bartolo Rees Emeka [id number] Bartolo Rees Emeka 05/07/2024 1 [place] Bartolo Rees Emeka [id number] Bartolo Cabrera Hendrickson 02/10/2025 2 [facility] - FFS/TRADITION AL Bartolo Rees Emeka [id number] Bartolo Cabrera Hendrickson Notes Date Note Type Note Provider Name and Address Organization Details Recorded Time 12/16/2024 text/html PREVIOUS ( 5): Mr. 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 He presents to the office today for follow-up from a recent hospitalization at the [facility]. He was air-lifted there earlier this [...] of his legs. Slade Lennon PA-C [address] [facility], [place], [address], [place] - [facility] - [place] 12/16/2024 15:20:09 12/31/2024 text/html 63-year-old male returns [...] Hemoglobin 14.2 and hematocrit 42. Platelet count 05386 Patient does not smoke. Denies any recent [...] 3.8. Hemoglobin 11.1. Hematocrit 34.3. Platelet count 50351. MCV 91.5. GFR greater than 60. Albumin 3.2. Total protein 7.1. Normal liver function testing. Labs on February 03, 2023 with improvement in platelet count 158457. Improvement in white blood cell count 3.4. [...] cell count 2.3. Hemoglobin 11.1. Platelet count 23626. Serum iron low at 24 and iron [...] applied May 2024. Patient was hospitalized at [facility] for a GI bleed 09/30/24-10/03/24. He [...] recently had MRI of his back [facility]. Reviewed MRI and it states there [...] Hemoglobin 6.7 and hematocrit 23.2. Platelet count 40484. serum iron low at 26 and iron saturation 6%. Ferritin 13. Patient returns on December 31, 2024. Bone marrow biopsy was ordered at previous visit but it has not been scheduled yet. Will make sure this is scheduled. Labs on December 12, 2024 with pancytopenia. White blood cell count 2. Hemoglobin 7.1 and hematocrit 26.8. Platelet count 71325. Serum iron low at 19 and iron [...] weeks or sooner should the need arise. Sandra Gregg PA-C [address], [place], [address], [place] [facility] - [place] 12/31/2024 14:44:31 01/27/2025 text/html PREVIOUS ( 5): Mr. 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 He presents to the office today for follow-up from a recent hospitalization at the [facility]. He was air-lifted there earlier this [...] tremor. He denies hematemesis, melena, or hematochezia. PREVIOUS (12/16/24): Mr. Hendrickson returns to the office [...] buttocks down the back of his legs. CURRENT (01/27/25): Mr. 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 He was again hospitalized earlier this month at [facility] due to symptomatic anemia. He received another transfusion and underwent repeat EGD by Dr. Toni Reynoso with findings consistent with GAVE. APC was again performed at that time. CT angiography at that time showed a contrast blush in the transverse colon, however he was not experiencing rectal bleeding at that time. He continues to receive regular iron infusions and has continued oral iron supplementation. He is feeling a bit better following his most recent transfusion. He denies hematemesis, melena, or hematochezia. He reports bilateral lower extremity swelling. He was discharged from [facility] on Lasix 80 mg daily and spironolactone 100 mg daily.-He also recently underwent PillCam examination last month that showed no source of blood loss in the small bowel. Slade Lennon PA-C [address] [facility], [place], [address], [place] [facility] - [place] 01/28/2025 22:12:47 02/20/2025 text/html 64-year-old male returns for evaluation [...] Hemoglobin 14.2 and hematocrit 42. Platelet count 73765 Patient does not smoke. Denies any recent [...] 3.8. Hemoglobin 11.1. Hematocrit 34.3. Platelet count 04117. MCV 91.5. GFR greater than 60. Albumin 3.2. Total protein 7.1. Normal liver function testing. Labs on February 03, 2023 with improvement in platelet count 375679. Improvement in white blood cell count 3.4. [...] cell count 2.3. Hemoglobin 11.1. Platelet count 38293. Serum iron low at 24 and iron [...] applied May 2024. Patient was hospitalized at [facility] for a GI bleed 09/30/24-10/03/24. He [...] recently had MRI of his back [facility]. Reviewed MRI and it states there [...] Hemoglobin 6.7 and hematocrit 23.2. Platelet count 66115. serum iron low at 26 and iron saturation 6%. Ferritin 13. Labs on December 12, 2024 with pancytopenia. White blood cell count 2. Hemoglobin 7.1 and hematocrit 26.8. Platelet count 41948. Serum iron low at 19 and iron saturation 5%. Ferritin 12. Normal flow cytometry. Patient received blood transfusion 2 units prbcs and infusional iron. Labs on December 31, 2024 with hemoglobin 7.8 Audio only telephone visit on February 20, 2025 began at 11:14 a.m. and ended at 11:30 a.m. Patient is located at his home and provider is located at [facility]. Consent obtained from patient. Patient lives near [facility]. Patient has difficultly traveling to due to [...] GAVE. Will fax lab order today to [facility]. Will follow up labs. Sandra Gregg PA-C [id number], [place], [address], [facility] - [place] - [place] & [place] 02/20/2025 13:27:16
--- OUTSIDE RECORDS SUMMARY | 2025-02-21 09:06 | XMS_ITS | Continuity of Care Document ---
Author Organization [facility] Phone Care Team Providers Care Lead Database Developer Name Role Phone BRAN AGUAYO Unavailable BRAN AGUAYO Primary Attending [phone] AGUSTIN WARD Primary Care BRAN AGUAYO Admitting DARI NI Surgeon Unavailable ALLERGIES AND ADVERSE REACTIONS ALLERGIES AND ADVERSE REACTIONS Code System Allergy Substance Adverse Reaction Date Reaction (Severity) Comment Status Reported By Updated By [id number] RXNorm Celebrex Adverse reaction to substance fluid retention active [id number] on November 01, 2024 9:05:32 PM UTC ASSESSMENTS Anemia ; FAMILY HISTORY RELATION: Father Status: Cause of : Malignant tumor of stomach Age at : 60 SNOMED-CT Diagnosis Age At Onset [id number] Hypertensive disorder [id number] Smoker [id number] Alcoholism RELATION: Mother Status: Cause of : Unknown Age at : 74 SNOMED-CT Diagnosis Age At Onset [id number] Chronic obstructive lung disease PROBLEMS PATIENT PROBLEMS Code Description/Comments Category Status Upda kilo By [id number] Anemia active [id number] on Dec 1:47:46 PM UTC RESULTS Patient: GREG Rees Date of : December 27 1 LABORATORY RESULTS ORDER 300: PT PROTHROMBIN TI ME W INR (LOINC: 91520-2) ORDER DATE: January 09, 2025 11:43:00 AM UTC Specimen Source: PLASMA Specimen Type: Plasma specim en PERFORMING LAB: [address] [id number] Result Comment: Final Result Date: January 09, 2025 12:05:00 PM UTC (TECH: ARR) LOINC TEST [place] [address]-1 INR in Platelet poor plasma or blood [...] Specimen Type: Plasma specim en PERFORMING LAB: [address] [id number] Result Comment: Final Result Date: January 09, 2025 12:05:00 PM UTC (TECH: ARR) LOINC TEST FLAG RESULT REFERENCE RANGE UPDA KILO BY 3173-2 Activated partial thromboplastin time (aPTT) in Blood by Coagulation assay L 23.1 SECONDS 24.5 SECONDS - 32.8 SECONDS January 09, 2025 12:05:00 PM UTC (TECH: ARR) ORDER 500: CBC AUTO W DIFF ( LOINC: 33500-3) ORDER DATE: January 09, 2025 11:48:00 AM UTC Specimen Source: EDTA Specimen Type: Blood specime n with EDTA PERFORMING LAB: [address] [id number] Result Comment: Final Result Date: January 09, [...] 09, 2025 12:01:00 PM UTC (TECH: ARR) 53587-0 Hematocrit [Volume Fraction] of Blood LL 24.9 [...] 09, 2025 12:01:00 PM UTC (TECH: ARR) 86017-0 Erythrocyte distribution width [Ratio] H 19.2 % 11.5 % - 14.0 % January 09, 2025 12:01:00 PM UTC (TECH: ARR) 777-3 Platelets [#/volume] in Blood by Automated count L 79 K/ul 150 K/ul - 450 K/ul January 09 12:01:00 PM UTC (TECH: ARR) 27792-9 Platelet mean volume [Entitic volume] in Blood by Automated count H 11.7 fl 6 fl - 9.5 fl January 09, 2025 12:01:00 PM UTC (TECH: ARR) 57642-1 Neutrophils/100 leukocytes in Blood H 70.9 % [...] 09, 2025 12:01:00 PM UTC (TECH: ARR) 50639-9 Immature granulocytes/100 leukocytes in Blood by Automated count N 0.4 % 0.0 % - 0.8 % January 09, 2025 12:01:00 PM UTC (TECH: ARR) 28278-0 Nucleated cells [#/volume] in Blood N 0.0 % January 09 12:01:00 PM UTC (TECH: ARR) 69043-7 Neutrophils [#/volum e] in Blood L 1.7 [...] 09, 2025 12:01:00 PM UTC (TECH: ARR) 70099-8 Immature granulocyte s [#/volume] in Blood N 0.01 K/ul January 09 12:01:00 PM UTC (TECH: ARR) 61704-6 Nucleated cells [#/volume] in Blood N 0.00 K/uL January 09 12:01:00 PM UTC (TECH: ARR) 54018-4 Manual Differential panel - Blood N NO January 09, 2025 12:01:00 PM UTC (TECH: ARR) LABORATORY NARRATIVE RESULTS Information is not available RADIOLOGY RESULTS ORDER 100: CT BIOPSY BONE MA RROW (LOINC: 85958-7) ORDER DATE: January 09, 2025 11:28:00 AM [facility] PERFORMING LAB: [address] [id number] Final Result Date: January 09, 2025 1:44:[address] [address] Name: BARTOLO GARZA Exam Date: 01/09/2025 : 1960 Age 64 years Gender: M Physician: BRAN AGUAYO Facility: [facility] Facility HSV: Outpatient Exam: CT BIOPSY BONE MARROW PROCEDURE: CT-GUIDED BONE MARROW BIOPSY PHYSICIAN ADMINISTERED CONSCIOUS SEDATION ATTENDING Physician: Dr. Ten Ayoub MD RADIO MECHANIC: TORI Jones. Direct Supervision: Willie Aldrich PA-C. CLINICAL [...] was obtained, which was handed to the certified ophthalmic technologist. Then the introducer needle was advanced [...] Ten Ayoub MD 01/09/2025 12:08 PM EDT Dictated By: Ten Ayoub Legally authenticated by SHAWANDA OMALLEY 2025-01-09 09:44:21 Transcribed By: Transcribed On: 01/09/2025 9:44 AM Electronically signed by: Ten Ayoub 01/09/2025 Thank you for referring BARTOLO GARZA to [facility]. Legally authenticated by SHAWANDA OMALLEY 2025-01-09 09:44:21 PATHOLOGY NARRATIVE RESULTS ORDER 600: PATHOLOGY SPECIME N (LOINC: 15340-2) ORDER DATE: January 09, 2025 11:53:00 AM [place] Specimen Source: PATH Specimen Type: Refer to path ology laboratory PERFORMING LAB: [address] [id number] Final Result Date: January 23, 2025 10:01:00 PM [facility] (TECH: [facility] TEST: PATHOLOGY SPECIMEN SEE SCANNED RPT MICROBIOLOGY RESULTS No Micro Labs/Results Exist for Patient BLOOD ADMIN RESULTS Information is not available MEDICATIONS HOME MEDICATIONS Status [facility] Medication Dose Route Frequency Dates Comments Reported By Updated By Active 324233 52963 97876 5 Allopurinol Oral Tablet 300 MG 1.0 TAB ORAL DAILY Last Dose: PATIENT [id number] on January 09, 2025 1:36:45 PM [place] Active 233199 81919 71076 0 amLODIPine Besylate Oral Tablet 10 MG 1.0 TAB ORAL DAILY Last Dose: PATIENT [id number] on January 09, 2025 1:36:48 PM [facility] Active 879530 77805 44720 0 buPROPion HCl ER (SR) Oral Tablet Extended Release 12 Hour 150 MG 1.0 TAB ORAL TID Last Dose: PATIENT [id number] on January 09, 2025 1:36:51 PM UTC Active 001937 92757 94257 1 busPIRone HCl Oral Tablet 10 MG 1.0 TAB ORAL BID Last Dose: PATIENT [id number] on January 09, 2025 1:36:57 PM UTC Active 882185 03716 07921 1 Gabapentin Oral Tablet 800 MG 1.0 TAB ORAL TID Last Dose: PATIENT [id number] on January 09, 2025 1:37:17 PM UTC Active 060418 23500 56174 2 hydrOXYzine Pamoate Oral Capsule 50 MG 1.0 CAP ORAL DAILYPRN Last Dose: PATIENT [id number] on January 09, 2025 1:37:22 PM UTC Active 5057260 88302 93266 1 oxyCODONE-Ac etaminophen Oral Tablet 10-325 MG 1.0 TAB ORAL DAILYPRN Last Dose: PATIENT ofb0611 on January 09, 2025 1:37:26 PM [place] Active 246094 23260 48707 0 Pantoprazole Sodium Oral Tablet Delayed Release 40 MG 1.0 TAB ORAL DAILY Last Dose: PATIENT [id number] on January 09, 2025 1:37:34 PM [place] Active 873760 35329 43169 1 Tamsulosin HCl Oral Capsule 0.4 MG 1.0 TAB ORAL DAILY Last Dose: PATIENT [id number] on January 09, 2025 1:37:38 PM UTC Active 943334 61766 90493 7 tiZANidine HCl Oral Capsule 4 MG 1.0 TAB ORAL DAILYPRN Last Dose: PATIENT fct0341 on January 09, 2025 1:37:41 PM UTC Active 962740 29027 74997 5 Furosemide Oral Tablet 20 MG 20.0 ORAL DAILY Last Dose: [id number] on January 09, 2025 1:38:24 PM UTC Active 5634868 53488 13556 1 Colchicine Oral Capsule 0.6 MG 0.6 ORAL DAILY Last Dose: [id number] on January 09, 2025 1:39:00 PM UTC Active 224493 10042 00197 0 OLANZapine Oral Tablet 5 MG 5.0 ORAL DAILY Last Dose: [id number] on January 09, 2025 1:39:33 PM [facility] Active 640752 83511 43278 5 Sertraline HCl Oral Tablet 100 MG 200.0 ORAL DAILY Last Dose: [id number] on January 09, 2025 1:40:29 PM [facility] Active 632318 40080 04912 9 SUMAtriptan Succinate Oral Tablet 100 MG 1.0 ORAL DAILY Last Dose: [id number] on January 09, 2025 1:41:01 PM [facility] DISCHARGE MEDICATIONS Status [facility] Medication Dose Route Frequency Dates Comments Physician Updated By No Discharge Medication Info rmation Available INPATIENT MEDICATIONS Status [facility] Medication Dose Route Frequency Rat e Quantity Dates Comments Physician Updated By Discont inued 9031997 1812 9663 714 sodium bicarbonate 8.4 % VIAL SOLN 50.0 MEQ INTRAV ENOUS ONE TIME ONLY (SCHEDULED DOSE) Start: January 09, 2025 12:07: 00 PM [facility] End: January 09, 2025 12:07: 00 PM [facility] DEDE SOTOMAYOR INTERFAC ED on January 09, 2025 12:09:00 PM [facility] Discont inued 0536318 0776 3048 527 lidocaine (XYLOCAINE) 1% SOLN 20.0 ML ONE TIME ONLY (SCHEDULED DOSE) Start: January 09, 2025 12:07: 00 PM [place] End: January 09, 2025 12:07: 00 PM [facility] ED on January 09, 2025 12:09:00 PM [facility] Discont inued 6696240 6332 3080 811 fentaNYL (SUBLIMAZE) 50 MCG/ML SOSY 50.0 MCG INTRAV ENOUS ONE TIME ONLY (SCHEDULED DOSE) Start: January 09, 2025 12:13: 00 PM [place] End: January 09, 2025 12:13: 00 PM [facility] ED on January 09, 2025 12:15:00 PM [facility] Discont inued 4411000 4642 9230 504 midazolam (VERSED) 5 MG/5 ML SOLN 5.0 MG INTRAV ENOUS ONE TIME ONLY (SCHEDULED DOSE) Start: January 09, 2025 12:14: 00 PM [facility] End: January 09, 2025 12:14: 00 PM [facility] ED on January 09, 2025 12:16:00 PM UTC Discont inued 2442606 4403 3066 401 diphenhydrA MINE (BENADRYL) 50 MG/ML SOLN 50.0 MG INTRAV ENOUS ONE TIME ONLY (SCHEDULED DOSE) Start: January 09, 2025 12:30: 00 PM [place] End: January 09, 2025 12:30: 00 PM [place] DEDE Bhatia INTERFAC ED on January 09, 2025 12:31:00 PM UTC Discont inued 9604929 2074 9230 504 midazolam (VERSED) 5 MG/5 ML SOLN 1.0 MG INTRAV ENOUS EVERY FIVE MINUTES NEEDED Start: January 09, 2025 11:52: 00 AM [place] End: January 09, 2025 2:09:4 6 PM UT LAST Woodward [id number] on January 09, 2025 2:09:00 PM UT Discont inued 1559662 6332 3080 811 fentaNYL (SUBLIMAZE) 50 MCG/ML SOSY 25.0 MCG INTRAV ENOUS EVERY FIVE MINUTES NEEDED Start: January 09, 2025 11:52: 00 AM UT End: January 09, 2025 7:21:0 0 PM UT LASTMICHAEL Woodward [id number] on January 10, 2025 4:25:00 AM UTC Discont inued 4350568 7418 3066 401 diphenhydrA MINE (BENADRYL) 50 MG/ML SOLN 25.0 MG INTRAV ENOUS ONE TIME ONLY (SCHEDULED DOSE) Start: January 09, 2025 12:41: 00 PM UT End: January 09, 2025 2:12:1 6 PM [place] LAST DARI Crissy [id number] on January 09, 2025 2:12:00 PM [facility] SOCIAL HISTORY SOCIAL HISTORY SNOMED-CT Social History Element Description Effective Dates Offered Cessation Comment UpdatedBy [id number] Historical Tobacco smoking status Never Smoked [id number] on November 12, 2024 5:05:01 PM [facility] SOCIAL HISTORY - Gender Sex: [...] for each vital sign as of January 24, 2025 2:04:07 AM [facility] Loinc Code Vital Sign Activity Date Result Updated By 8462-4 Diastolic blood pressure January 09, 2025 3:20:00 PM UTC 61.0 mm[Hg] [id number] on January 09, 2025 3:42:22 PM UT 8867-4 Heart rate January 09, 2025 3:20:00 PM UT 67 /min [id number] on January 09, 2025 3:42:22 PM [facility] 34099-5 Oxygen saturation in Arterial blood by Pulse oximetry January 09, 2025 3:20:00 PM UT 98.0 % [id number] on January 09, 2025 3:42:22 PM [facility] 9279-1 Respiratory rate January 09, 2025 3:20:00 PM UT 18 /min [id number] on January 09, 2025 3:42:22 PM [facility] 8480-6 Systolic blood pressure December 3:20:00 PM UT 123.0 mm[Hg] [id number] on January 09, 2025 3:42:22 PM [facility] PEDIATRIC GROWTH CHART - VITAL SIGNS This section displays Head C ircumference Percentile, Weight for Length Percentile and BMI Percentile Loinc Code Pediatric Measure Age (Months) Result Updat ed By No Pediatric Growth Chart Pe rcentile Information Available. PROCEDURES PATIENT PROCEDURES CODE SYSTEM DESCRIPTION STATUS PERFORMED DATE UPD ATED BY [id number] SNOMED-CT Bone marrow biop sy, needle or trocar completed January 09, 2025 4:00:00 AM [facility] [id number] on January 09, 2025 1:51:36 PM UT PROCEDURE NOTE Note Title Operative/Procedure Note Date Of Service January 09, 2025 1:51: 44 PM UT Created By [id number] on January 09, 2025 1:51:44 PM UTC Signed By [id number] on January 10, 2025 2:45:18 PM UT Pre-Procedure Diagnosis Anemia Post- Procedure Diagnosis Anemia Procedure / Surgery Performed Bone marrow biopsy, needle or trocar CT guided Performed by LAST ZHANG Assisted by KATI SAAVEDRA Anesthesia Type Conscious sedation, Local anesthesia Estimated Blood Loss Minimal. Complications None Present at Time of Surgery Willie Aldrich PA-C, [place], [facility]. Indication Diagnostic purpose. Procedure Description / [...] condition. Electronically signed by LAST ZHANG on 1434 I hereby attest the note that was [...] ANEMIA Admission January 09, 2025 11:21:00 AM [facility] G [address] [address] Discharge January 09, 2025 7:21:00 PM [facility] DI SCHARGED TO HOME OR SELF CARE ENCOUNTER DIAGNOSES Notes information is not dai ilable. Code System Diagnosis Onset Date Diagnosis information is not available. ABSTRACT DIAGNOSES Code System Diagnosis Updated By D64.9 ICD10 ANEMIA, UNSPECIFIED [id number] on January 13, 2025 10:38:33 AM [facility] D64.9 ICD10 ANEMIA, UNSPECIFIED [id number] on January 13, 2025 10:38:33 AM [facility] D72.819 ICD10 DECREASED WHITE BLOOD CELL COUNT, UNSPECIFIED [id number] on January 13, 2025 10:38:33 AM [facility] D69.6 ICD10 THROMBOCYTOPENIA, UNSPECIFIE D [id number] on January 13, 2025 10:38:33 AM [facility] Z87.19 ICD10 PERSONAL HISTORY OF OTHER DISEASES OF THE DIGESTIVE SYSTEM [id number] on January 13, 2025 10:38:33 AM [facility] R93.7 ICD10 ABNORMAL FINDING S ON DIAGNOSTIC IMAGING OF OTHER PARTS OF MUSCULOSKELETAL SYSTEM [id number] on January 13, 2025 10:38:33 AM [facility] Z88.6 ICD10 ALLERGY STATUS TO ANALGESIC AGENT [id number] on January 13, 2025 10:38:33 AM UTC CARE TEAM Care Lead Database Developer Role BRAN AGUAYO Referring BRAN AGUAYO Primary Attending AGUSTIN WARD Primary Care BRAN AGUAYO Admitting DARI NI Surgeon HOSPITAL DISCHARGE INSTRUCTION DISCHARGE INSTRUCTION Encounter [id number] Admit Date January 09, 2025 11:21 :00 AM UTC Discharge Date January 09, 2025 7:21: 00 PM [facility] PATIENT EDUCATION SUMMARY Patient/Visit Information: Patient Name: BARTOLO GARZA Diag: Attending Caregiver: DEDE Bhatia Discharge Instruction Sheets Provided: [facility] Radiology CT Guided Biopsy Discharge Instructions Patient Instructions: Followup Appointments/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 Role on Team Status Start Date End Date Update d By LAST ZHANG Surgeon normal January 09, 2025 11:21:00 AM [facility] January 09, 2025 7:21:00 PM [place] [id number] on January 13, 2025 10:37:38 AM [facility] SYLVIA MEDINA PCP normal December 31, 2024 8:34:32 PM [facility] January 09, 2025 7:21:00 PM [place] [id number] on January 13, 2025 10:37:38 AM [facility] DEDE DUDLEY Referring normal December 31, 2024 8:34:32 PM [facility] January 09, 2025 7:21:00 PM [place] [id number] on January 13, 2025 10:37:38 AM [facility] DEDE DUDLEY Attending normal December 31, 2024 8:34:32 PM [facility] January 09, 2025 7:21:00 PM UT [id number] on January 13, 2025 10:37:38 AM [facility] DEDE DUDLEY Admitting normal December 31, 2024 8:34:32 PM UT January 09, 2025 7:21:00 PM [place] [id number] on January 13, 2025 10:37:38 AM [facility]
[2025-02-21 10:16] LABS: Anti-Centromere B Antibodies ND; Anti-DNA (DS) Ab Qn ND; Anti-Jo-1 ND; Antichromatin Antibodies ND; Antiscleroderma-70 Antibodies ND; RNP Antibodies ND; Sjogren's Anti-SS-A ND; Sjogren's Anti-SS-B ND
[2025-02-21 11:03] LABS: Alanine Aminotransferase 20 U/L (12-78); Albumin Level 2.9 g/dl (3.5-5.0); Albumin/Globulin Ratio 1.1 (1.1-1.8); Alkaline Phosphatase 135 U/L (38-126); Anion Gap 6.4 mEq/L (5-15); Aspartate Amino Transferase 34 U/L (17-59); Bilirubin,Total 0.5 mg/dl (0.2-1.3); Blood Urea Nitrogen 22 mg/dl (9-20); Calcium 8.2 mg/dl (8.4-10.2); Carbon Dioxide 27 mmol/L (22.0-30.0); Chloride 106 mmol/L (98-107); Creatine Kinase 42 U/L (55-170); Estimated Glomerular Filt Rate 61 ml/min (>60); GFR (African American) 74 ML/MIN (>60); Globulin 2.7 g/dL (1.3-3.2); Glucose 120 mg/dl (74-100); Potassium 4.4 mmoL/L (3.5-5.1); Sodium 135 mmol/L (136-145); Total Protein,Serum 5.6 g/dl (6.3-8.2)
[2025-02-25 10:10] LABS: Antinuclear Antibodies (ANA) Negative (Negative)
[2025-02-25 16:33] LABS: Aldolase 5.3 U/L (3.3-10.3)
== END 2025-02-21 23:59 | disposition home or self-care (01) ==
LOC: RT 09:03
PROVIDERS: Specialist; PCP Family Medicine
DX: D61.818 Other pancytopenia (principal); D50.0 Iron deficiency anemia secondary to blood loss (chronic); R29.898 Other symptoms and signs involving the musculoskeletal system
CPT/HCPCS: 36415; 80053; 82085; 82550; 86038; 95819

== ENCOUNTER 2025-05-29 10:34 | Outpatient (CLI) | payer MEDICARE, MEDICAID, SELFPAY ==
--- OUTSIDE RECORDS SUMMARY | 2025-04-25 09:00 | XMS_ITS | Encounter Summary ---
Author Organization Healthcare Address [address] [place] [address] Care Team Providers Care Inside Upholsterer Name Role Phone López Alicea MD Primary Care Provider [phone] Slade Lennon Unavailable Reason for Visit * Consultation (Routine) - Closed Specialty Diagnoses / Procedures Referred By Contac t Referred To Contact Transplant Diagnoses End-stage liver disease (CMS/HCC) Norman Rodney MD [address] [facility] [address] [place] [phone] Phone: tel: fax: [facility] [address] [address] Phone: tel: fax: Referral ID Status Reason Start Date Expiration Date V isits Requested Visits Authorized [id number] Closed Specialty Services Required 03/19/2025 09/18/2026 1 1 Encounter Details Date Type Department Care Team (Late st Contact Info) Description 04/25/2025 9:00 AM EDT Office Visit [facility] [address] [facility] [address] [place] [address] Daniel Marques MD [address] [facility] [address] [place] [address] Anemia due to other cause, not classified (Primary Dx) Social History Tobacco Use Types Packs/Day Years Used Date Smoking Tobacco: Never Smokeless Tobacco: Never Alcohol Use Standard Drinks/Week Comments No 0 (1 standard drink = 0.6 oz pur e alcohol) Humiliation, Afraid, Rape, and Kick questionnair e Answer Date Recorded Within the last year, have y ou been afraid of your partner or ex-partner? No 02/27/2025 Within the last year, have y ou been humiliated or emotionally abused in other ways by your partner or ex-partner? No Within the last year, have y ou been kicked, hit, slapped, or otherwise physically hurt by your partner or ex-partner? No 02/27/2025 Within the last year, have y ou been raped or forced to have any kind of sexual activity by your partner or ex-partner? No 02/27/2025 PHQ-2 Answer Date Recorded Patient Health Questionnaire-2 Score 2 04/25/2025 Hunger Vital Sign Answer Date Recorded Within the past 12 months, y ou worried that your food would run out before you got the money to buy more. Never true 02/28/20 Within the past 12 months, t he food you bought just didn't last and you didn't have money to get more. Never true 02/27/2025 PRAPARE - Transportation Answer Date Re corded In the past 12 months, has l ack of transportation kept you from medical appointments or from getting medications? Yes 01/31 In the past 12 months, has l ack of transportation kept you from meetings, work, or from getting things needed for daily living? Yes 02/27/2025 PHQ-9 Answer Date Recorded Patient Health Questionnaire-9 Score 5 04/25/2025 Housing Stability Vital Sign Answer Aaron e Recorded In the last 12 months, was t here a time when you were not able to pay the mortgage or rent on time? No 02/27/2025 Number of Times Moved in the Last Year Not on fi le 02/27/2025 At any time in the past 12 m [facility], were you homeless or living in a alf (including now)? No 02/27/2025 Utilities Answer Date Recorded In the past 12 months has e electric, gas, oil, or water company threatened to shut off services in your home? No 02/27/2025 Sex and Gender Information Value Date Recorded Sex Assigned at Not on file Legal Sex Male 8:05 PM EDT Gender Identity Not on file Sexual Orientation Not on file documented as of this encounter Last Filed Vital Signs Vital Sign Reading Time Taken Comments Blood Pressure 158/85 04/25/2025 7:17 AM EDT Pulse 91 04/25/2025 7:17 AM EDT Temperature 37.2 C (98.9 F) 04/25/2025 7:17 AM EDT Respiratory Rate 16 04/25/2025 7:17 AM EDT Oxygen Saturation 95% 04/25/2025 7:17 AM EDT Inhaled Oxygen Concentration - - Weight 141 kg (310 lb 13.6 oz) 04/25/2025 7:17 A M EDT Height 180.3 cm (5' 11 ) 04/25/2025 7:17 AM EDT Body Mass Index 43.35 04/25/2025 7:17 AM EDT documented in this encounter Functional Status * Over the past 2 weeks, how often have you been bothered by any of the following problems? Question Answer Date of Assessment Author Little interest or pleasure in doing things Several days 04/25/2025 7:21 AM EDT Dominick Cornelius Feeling down, depressed, or hopeless Several days 04/25/2025 7:21 AM EDT Dominick Cornelius Patient Health Questionnaire -2 Score 2 04/25/2025 7:21 AM EDT Dominick Cornelius * Question Answer Date of Assessment Author Trouble falling or staying asleep, or sleeping too much Several days 04/25/2025 7:21 AM EDT Dominick Cornelius Feeling tired or having yue le energy Several days 04/25/2025 7:21 AM EDT Dominick Cornelius Poor appetite or overeating Not at all 04/25/2025 7: 21 AM EDT Dominick Cornelius Feeling bad about yourself - or that you are a failure or have let yourself or your family down Several days 04/25/2025 7:21 AM EDT Dominick Mario Trouble concentrating on thi ngs, such as reading the newspaper or watching television Not at all 04/25/2025 7:21 AM EDT Dominick Cornelius Moving or speaking so slowly that other people could have noticed? Or the opposite - being so fidgety or restless that you have been moving around a lot more than usual. Not at all 04/25/2025 7:21 AM EDT Dominick Cornelius Thoughts that you would be b valente off or hurting yourself in some way Not at all 04/25/2025 7:21 AM EDT Dominick Cornelius Patient Health Questionnaire -9 Score 5 04/25/2025 7:21 AM EDT Dominick Cornelius * Calculated C-SSRS Risk Score (Lifetime/Recent) Answer Date of Assessment Author No Risk Indicated 04/27/2025 8:00 AM EDT Werner Chahal, SERVANDO * If you checked off any problems on this questionnaire so far, Question Answer Date of Assessment Author How difficult have these problems made it for you to do your work, take care of things at home, or get along with other people? Somewhat difficult 04/25/2025 7:21 AM EDT Brooklyn Cornelius * Question Answer Date of Assessment Author 1. Wish to be (Past 1 Month) No 025 8:00 AM EDT Werner Chahal, SERVANDO 2. Non-Specific Active Suici sully Thoughts (Past 1 Month) No 04/27/2025 8:00 AM EDT Werner Chahal RN 6. Suicidal Behavior (Lifetime) No 8:00 AM EDT Werner Chahal RN documented as of this encounter Miscellaneous Notes * Progress Notes - Monico Quiles MBBS - 04/25/2025 9:00 AM EDT Subjective Patient ID: Chema Hendrickson is a 64 y.o. male. Initial transplant consultation. 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 Patient presents today for initial transplant consultation. He used to follow with [facility] but does not have candidates for live donor transplant. He Personally denies any history of complications including hepatic encephalopathy, ascites, variceal bleeding. As per chart review he was started on rifaximin and lactulose for having memory difficulties. He does not have any history of ascites, spontaneous bacterial peritonitis or large volume par acentesis but has had bilateral lower extremity edema and has been started on furosemide 40 mg and spironolactone 100 mg. He denies any history of jaundice as well. He does endorse history of gastrointestinal bleeding in the past but multiple EGDs have not demonstrated any bleeding varices. Howeverhe did have nonbleeding grade 1 varices in September 2024 and was on carvedilol which was later discontinued due to acute kidney injury. Patient has had hospitalizations last year in September and this year in January due to iron deficiency anemia in the setting of gave. His course has been complicated by multiple episodes of GAVE, more recently in 01/2025. He underwent an EGD and 5 bands were placed for GAVE. No varices were noted. He had similar episode later last year and the patient required iron infusions. Ever since his dischargehe had been having on and off black tarry stools and has been progressively been getting weaker andshortness of breath at exertion. Last week he had an episode where he was watching TV and passed out without any aura. He gained consciousness after 2-3 minutes and did not have any confusion after the episode he did twist his foot and has been having difficulty bearing weight ever since. He does not have any edema, confusion at this moment. Denies any nausea vomiting diarrhea. On review of the patient's notes he was referred for possible tips evaluation in the setting of GAVE? Decompensation Ascites - SBP: None - LVP: None Variceal bleeding - None HE- None EGD: 01/2025- 5 bands were placed on GAVE Colonoscopy: No results on file Past medical hx Gout, chronic kidney disease Surgical hx Lap cholecystectomy Family hx No history of liver disease Social hx Lives by himself Alcohol: none Smoking: none Drugs/Substances: none The following portions of the chart were reviewed this encounter and updated as appropriate: Review of Systems 14 point ROS negative except for HPI Objective Visit Vitals BP (!) 158/85 Pulse 91 Temp 37.2 ??C (98.9 ??F) Ht 1.803 m (5' 11 ) Wt 141 kg (310 lb 13.6 oz) SpO2 95% BMI 43.35 kg/m?? Constitutional: Appearance: Normal appearance, well-developed. HENT: Head: Normocephalic and atraumatic. Right Ear: External ear normal. Left Ear: External ear normal. Nose: Nose normal. Mouth/Throat: Mouth: Mucous membranes are moist. Pharynx: Oropharynx is clear. Eyes: General: No scleral icterus. Conjunctiva/sclera: Conjunctivae pale. Neck: Thyroid: No thyromegaly. Vascular: No JVD. Cardiovascular: Rate and Rhythm: Normal rate and regular rhythm. Pulmonary: Effort: Pulmonary effort is normal. Breath sounds: Normal breath sounds. Abdominal: General: There is no distension. Palpations: Abdomen is soft. There is no hepatomegaly, splenomegaly or mass. Tenderness: There is no abdominal tenderness. There is no guarding. Hernia: No hernia is present. Musculoskeletal: General: Normal range of motion. Cervical back: Neck supple. nonpitting lower extremity edema Lymphadenopathy: Cervical: No cervical adenopathy. Skin: General: Skin is warm. Coloration: Skin is not jaundiced or pale. Neurological: General: No focal deficit present. Mental Status: She is alert and oriented to person, place, and time. Gait: Gait normal. Psychiatric: Mood and Affect: Mood normal. Behavior: Behavior normal. Judgment: Judgment normal. Current Medications[1] Laboratory values CBC: WBC Count Date/Time Value Ref Range Status 04/25/2025 12:45 PM 2.17 (L) 3.70 - 10.30 10*3/uL Final 04/25/2025 07:06 AM 4.32 3.70 - 10.30 10*3/uL Final 03/10/2025 11:38 AM 1.9 (L) 3.4 - 10.8 x10E3/uL Final Comment: Verified by repeat analysis 03/03/2025 05:42 AM 1.43 (L) 3.70 - 10.30 10*3/uL Final HGB Date/Time Value Ref Range Status 04/25/2025 12:45 PM 6.0 (LL) 13.7 - 17.5 g/dL Final 04/25/2025 07:06 AM 6.9 (L) 13.7 - 17.5 g/dL Final 03/10/2025 11:38 AM 9.5 (L) 13.0 - 17.7 g/dL Final 03/03/2025 05:42 AM 8.6 (L) 13.7 - 17.5 g/dL Final HCT Date/Time Value Ref Range Status 04/25/2025 12:45 PM 21.3 (L) 40.0 - 51.0 % Final 04/25/2025 07:06 AM 25.2 (L) 40.0 - 51.0 % Final 03/10/2025 11:38 AM 32.6 (L) 37.5 - 51.0 % Final 03/03/2025 05:42 AM 28.0 (L) 40.0 - 51.0 % Final Platelet Count Date/Time Value Ref Range Status 04/25/2025 12:45 PM 72 (L) 155 - 369 10*3/uL Final 04/25/2025 07:06 AM 109 (L) 155 - 369 10*3/uL Final 03/10/2025 11:38 AM 99 (L) 150 - 450 x10E3/uL Final Comment: Actual platelet count may be somewhat higher than reported due to aggregation of platelets in this sample. 03/03/2025 05:42 AM 86 (L) 155 - 369 10*3/uL Final CMP: Sodium, Plasma Date/Time Value Ref Range Status 04/25/2025 12:45 PM 140 136 - 145 mmol/L Final 04/25/2025 07:06 AM 139 136 - 145 mmol/L Final 03/03/2025 05:42 AM 138 136 - 145 mmol/L Final Potassium, Plasma Date/Time Value Ref Range Status 04/25/2025 12:45 PM 3.9 3.6 - 4.9 mmol/L Final 04/25/2025 07:06 AM 4.3 3.6 - 4.9 mmol/L Final 03/03/2025 05:42 AM 3.8 3.6 - 4.9 mmol/L Final Chloride, Plasma Date/Time Value Ref Range Status 04/25/2025 12:45 PM 107 97 - 107 mmol/L Final 04/25/2025 07:06 AM 106 97 - 107 mmol/L Final 03/03/2025 05:42 AM 99 97 - 107 mmol/L Final CO2, Plasma Date/Time Value Ref Range Status 04/25/2025 12:45 PM 25 22 - 29 mmol/L Final 04/25/2025 07:06 AM 23 22 - 29 mmol/L Final 03/03/2025 05:42 AM 31 (H) 22 - 29 mmol/L Final BUN, Plasma Date/Time Value Ref Range Status 04/25/2025 12:45 PM 16 8 - 23 mg/dL Final 04/25/2025 07:06 AM 16 8 - 23 mg/dL Final 03/03/2025 05:42 AM 19 8 - 23 mg/dL Final Creatinine, Plasma Date/Time Value Ref Range Status 04/25/2025 12:45 PM 1.06 0.70 - 1.20 mg/dL Final 04/25/2025 07:06 AM 1.12 0.70 - 1.20 mg/dL Final 03/03/2025 05:42 AM 1.27 (H) 0.70 - 1.20 mg/dL Final Total Calcium, Plasma Date/Time Value Ref Range Status 04/25/2025 12:45 PM 8.1 (L) 8.9 - 10.2 mg/dL Final 04/25/2025 07:06 AM 8.6 (L) 8.9 - 10.2 mg/dL Final 03/03/2025 05:42 AM 8.5 (L) 8.9 - 10.2 mg/dL Final Total Bilirubin, Plasma Date/Time Value Ref Range Status 04/25/2025 12:45 PM 0.3 0.2 - 1.1 mg/dL Final 04/25/2025 07:06 AM 0.4 0.2 - 1.1 mg/dL Final 02/24/2025 06:44 PM 0.4 0.2 - 1.1 mg/dL Final Alkaline Phosphatase, Plasma Date/Time Value Ref Range Status 04/25/2025 12:45 PM 130 (H) 40 - 115 U/L Final 04/25/2025 07:06 AM 153 (H) 40 - 115 U/L Final 02/24/2025 06:44 PM 133 (H) 40 - 115 U/L Final ALT, Plasma Date/Time Value Ref Range Status 04/25/2025 12:45 PM 21 10 - 50 U/L Final 04/25/2025 07:06 AM 18 10 - 50 U/L Final 02/24/2025 06:44 PM 18 10 - 50 U/L Final AST, Plasma Date/Time Value Ref Range Status 04/25/2025 12:45 PM 30 10 - 50 U/L Final 04/25/2025 07:06 AM 30 10 - 50 U/L Final 02/24/2025 06:44 PM 30 10 - 50 U/L Final Glucose, Plasma Date/Time Value Ref Range Status 04/25/2025 12:45 PM 86 74 - 99 mg/dL Final 04/25/2025 07:06 AM 106 (H) 74 - 99 mg/dL Final 03/03/2025 05:42 AM 82 74 - 99 mg/dL Final Imaging/Radiology No images are attached to the encounter or orders placed in the encounter. Assessment/Plan .MELD 3.0: 8 at 04/25/2025 12:45 PM MELD-Na: 8 at 04/25/2025 12:45 PM Calculated from: Serum Creatinine: 1.06 mg/dL at 04/25/2025 12:45 PM Serum Sodium: 140 mmol/L (Using max of 137 mmol/L) at 04/25/2025 12:45 PM Total Bilirubin: 0.3 mg/dL (Using min of 1 mg/dL) at 04/25/2025 12:45 PM Serum Albumin: 3 g/dL at 04/25/2025 12:45 PM INR(ratio): 1.1 at 04/25/2025 7:06 AM Age at listing (hypothetical): 64 years Sex: Male at 04/25/2025 12:45 PM 1. Cirrhosis secondary to: metabolic associated liver disease Complications of liver disease include: GAVE, possible encephalopathy History of: obesity, chronic kidney disease, gout Chemical dependency: none Counseled on the nature, symptoms & signs, and complications of cirrhosis. Advised to avoid NSAIDS, can take acetaminophen but not to exceed 2000 mg a day. #Transplant: Low MELD, we will defer evaluation at this time # Ascites / pedal edema: LVP: none SBP: none MARLEN: January 2025, resolved Diuretics - currently on 40 Furosemide mg /day and [id number] mg/day ---- continue with the current dose Suggest strict 2 gm /day salt diet check for BUN /creatinine and electrolytes with labs # Hepatic Encephalopathy: Current symptoms none, recently had syncope likely due to anemia No recent hospitalizations Current medicines lactulose, continue to 2-3 bowel movements # Esophageal varices screening- 01/2025- no varices, 202324 grade 1 varices, no banding Beta Damion- previously on carvedilol, not taking currently likely in the setting of MARLEN Educated on S/S of GI bleed and advised to go to ER if any occurs. # HCC surveillance: Lab Results Component Value Date AFP 3.7 04/25/2025 Will order liver ultrasound for HCC screening Continue Q6 monthly surveillance protocol. #Vaccination Hepatitis A- nonimmune, we will immunize next visit Hepatitis B- nonimmune we will immunize next visit #GAVE Admission 09/2024, 01/2025 Most recent EGD 01/2025, 5 bands were placed, in September 2024 APC was used Currently has on and off melena for 5 weeks Hemoglobin 6.4 on labs Vitals stable Symptomatic with episode of syncope, fatigue, shortness of breath Unfortunately that has no role of tips in the treatment of underlying GAVE. Can consider assisted assisted Octreotide injections vs routine IV iron transfusions vs bevacizumab (if insurance coverage is obtainable) # Malnutrition-- Counseled on the importance of increasing protein intake, advised to get 1.2-1.5 gram/kg a day. Advsied to take late night snack. RTC in 1 month after hospital discharge GONSALO Tomlinson A total of 80 minutes was spent during this visit for care coordination, including review of medical records and previous notes, obtaining history and physical exam, ordering tests, changes in medications, counseling patient about cirrhosis, natural history,prognosis, potential complications of cirrhosis and management of complications of cirrhosis, indications/contraindications for liver transplant, benefits/risks of transplant including process of transplant evaluation, concept of MELD score, instructions for management, consult with peers and clinical documentation in the patient's clinic note [1] No current facility-administered medications for this visit. No current outpatient medications on file. Facility-Administered Medications Ordered in Other Visits: buPROPion SR (Wellbutrin SR) 12 hr tablet 150 mg, 150 mg, Oral, Daily, Allen Chen MD busPIRone (Buspar) tablet 20 mg, 20 mg, Oral, BID, Allen Chen MD furosemide (Lasix) injection 40 mg, 40 mg, Intravenous, q8h, Allen Chen MD, 40 mg at 04/25/25 1524 gabapentin (Neurontin) capsule 600 mg, 600 mg, Oral, TID, Allen Chen MD OLANZapine (ZyPREXA) tablet 5 mg, 5 mg, Oral, Nightly, Allen Chen MD oxyCODONE (Roxicodone) immediate release tablet 10 mg, 10 mg, Oral, q8h, Ruslan Lucas MD, 10 mgat 04/25/251822 pantoprazole (Protonix) injection 40 mg, 40 mg, Intravenous, BID, Ruslan Lucas MD [START ON 04/26/2025] sertraline (Zoloft) tablet 100 mg, 100 mg, Oral, Daily, Allen Chen MD [COMPLETED] Insert peripheral IV, , , Once AND Saline lock IV, , , Once AND sodium chloride0.9 % flush 10 mL, 10 mL, Intravenous, q12h AND sodium chloride 0.9 % flush 10 mL, 10 mL, Intravenous, PRN, Allen Chen MD [START ON 04/26/2025] spironolactone (Aldactone) tablet 50 mg, 50 mg, Oral, Daily, Allen Chen MD Cosigned by Daniel Marques MD at 04/28/2025 7:52 AM EDT Associated attestation - Daniel Marques MD - 04/28/2025 7:52 AM EDT I saw and evaluated the patient with the fellow. I discussed the case with the fellow and agree with the findings and plan as documented. 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 Also c/o melena x5 weeks with recent syncopal episode. Will admitted to the hospital for blood transfusion and EGD. Furthermore, patient does not qualify for donor liver transplantation given low meld. Daniel Marques MD documented in this encounter Plan of Treatment Upcoming Encounters Date Type Department Care Team (Late st Contact Info) Description 06/03/2025 8:30 AM EDT Clinical Support [facility] [address] [place] [address] 06/03/2025 10:00 AM EDT Office Visit [facility] [address] [place] [address] Daniel Marques MD [address] [place] [address] documented as of this encounter Goals Goal Patient Goal Type Associated Problems Recent Progress Patient-Stated? Author Autogenerat ed Goal Care Plan Autogenerated Problem No Andreia Grossman, RN Autogenerat ed Goal Care Plan Autogenerated Problem No Angelina Lorenzo RN documented as of this encounter Procedures Procedure Name Priority Date/Time Associated Diagnosis Comments TYPE AND SCREEN Routine 04/25/2025 9:57 AM EDT Anemia due to other cause, not classified documented in this encounter Results * Type and Screen (04/25/2025 9:57 AM EDT) ABO/Rh O Positive 04/25/2025 9:57 AM EDT CH BLOOD BANK Antibody Screen Negative 04/25/2025 9:57 AM EDT CH BLOOD BANK Specimen Expiration 04/28/2025 23:59 04/25/2025 9:57 AM EDT BLOOD BANK Blood Venous blood specimen / Unknown Venipuncture / Unknown 04/25/2025 9:57 AM EDT 04/25/2025 10:14 AM EDT us Daniel Marques MD LAB BLOOD BANK TEST ORDERABLES Final Result BLOOD BANK [address] documented in this encounter Visit Diagnoses Diagnosis Anemia due to other cause, not classified- Primary documented in this encounter Additional Health Concerns Active Problems Noted Date Diagnosed Date Autogenerated Problem 02/26/2025 Autogenerated Problem 04/25/2025 Assessment Noted Time PHQ-9 Depression Total Score: 5 04/25/20 7:21 AM EDT A fall risk assessment has been complete d for the patient 04/25/2025 7:21 AM EDT A Body Mass Index follow-up plan has been documented for the patient 04/27/2025 4:35 PM EDT documented as of this encounter Care Teams Inside Upholsterer Relationship Specialty Start Date End Date López Alicea MD [address] [place] [address] PCP - General 02/24/25 Slade Lennon PA [facility] [place] [address] Referring Physician Gastroenterology 03/19/25 documented as of this encounter
--- OUTSIDE RECORDS SUMMARY | 2025-04-25 11:16 | XMS_ITS | Encounter Summary ---
Author Organization Healthcare Address [address] [id number] Care Team Providers Care Airplane Designer Name Role Phone López Alicea MD Primary Care Provider [phone] Slade Lennon Unavailable Reason for Referral * Transplant (Routine) - Authorized Specialty Diagnoses / Procedures Referred By Raffi caputo Referred To Contact Transplant Diagnoses Gastrointestinal hemorrhage with melena Ruslan Lucas MD [address] [place] [address] Phone: tel: fax: Referral ID Status Reason Start Date Expiration Date Visits Requested Visits Authorized [id number] Authorized Specialty Services Required 04/27/2025 10/27/2026 999 999 Reason for Visit * Auth/Cert (Routine) Specialty Diagnoses / Procedures Referred By Raffi caputo Referred To Contact Diagnoses GIB (gastrointestinal bleeding) Gastrointestinal hemorrhage with melena melena, GI bleed hgb 6.9 Ruslan Lucas MD [address] [place] [address] Phone: tel: fax: [facility] [address] [place] [phone] Phone: tel: Referral ID Status Reason Start Date Expiration Date Visits Re quested Visits Authorized [id number] 1 1 Encounter Details Date Type Department Care Team (Latest Contact Info) Description 04/25/2025 11:16 AM EDT - 04/27/2025 5:17 PM EDT Hospital Encounter [facility] [address] [place] [address] Allen Chen MD [address] [place] [address] Ruslan Lucas MD [address] [place] [address] Gastrointestinal hemorrhage with melena (Primary [...] any time in the past [address] [facility], were you homeless or living in a skilled nursing (including now)? No 02/27/2025 Utilities Answer Date Recorded In the past 12 months has th e [place], gas, oil, or water 7write threatened to shut off services in your [...] from the original note were not included. [id number] Discharge Instructions for Liver Cirrhosis You have [...] Talk with your provider before taking vitamins, kbwh-yed-lijhrki medicines, or herbal supplements. Some supplements may [...] clearly Last Reviewed Date: 2024 00:00:00 ?? [id number] [employer]. All rights reserved. This information is not [...] name and Address: López Alicea MD [address] [facility] / [facility] [address] Referring provider name and address: Daniel Marques MD [address] [facility] [address] [place] [address] Chief Concern, Brief History of Present Illness, and Hospital Course Chema Hendrickson is a 64 y.o. 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 Previously, he had severe hemorrhagic shock requiring emergency ICU care and multiple transfusions at the [facility] September 2024. He has had previous [...] epigastric abdominal pain which she describes as fqye-tn-spocqogk. He denies hematemesis although he has some [...] Your Medications These medications were sent to [facility] - [place], [place] - [address], [facility] [address] ferrous sulfate 325 (65 Fe) MG tablet [...] Note Chema Hendrickson 64 y.o. male CSN: [id number] Admission: 04/25/2025 11:16 AM Primary Problem: GIB [...] if any other needs arise. Mita Quintero COFFEE SHOP MANAGER, MOLD YARD SUPERVISOR Social Work Case Management * Care Plan [...] ICU care and multiple transfusions at the [facility] September 2024. He has had previous [...] epigastric abdominal pain which she describes as [id number]-[id number]. He denies hematemesis although he has some [...] medication (see MAR) * Care Plan - Lodia Hernandez - 04/26/2025 9:31 AM EDT Problem: [...] promoted and patient encouraged to use hand pyrotechnic mixer often - Monitor vitals and labs. Patient [...] public transportation Outpatient/Agency/Support Group Needs: OT, PT, [employer]ER Transportation Concerns: rides, unreliable from others Current [...] ICU care and multiple transfusions at the [facility] September 2024. He has had previous [...] epigastric abdominal pain which she describes as [id number]-[id number]. He denies hematemesis although he has some [...] Disposition: Ruslan Lucas MD Internal Medicine Hospitalist Trolley Cleanerpayroll benefits clerk Department of Internal Medicine Division of Hospital Medicine [address] [address] Preferred method is secure chat or cell phone at [phone] Medically Ready for Discharge:Anticipated in 2-4 Days * Progress Notes - Sandy Smith, PT - 04/26/2025 8:14 AM EDT PHYSICAL THERAPY EVALUATION Patient Name Chema Hendrickson Session Date 04/26/2025 Total Treatment Time [...] unaware when pt may be discharged from [facility]. Director Of Services (if applicable) Not Applicable HOME LIVING/SET-UP Lives With Alone Home Type Apartment Home Equipment Rollator Home Layout One level Bathroom Layout Bathroom: Tub/Shower: Tub/Shower combo Bathroom: Toilet: Standard Additional Comments PRIOR LEVEL OF FUNCTION Assist at Home No assist required prior to admission Level of Mobility Ambulatory- community Mobility [place] Independent gait without device History of Falls [...] Treatment Minutes 13 BED MOBILITY Level of [place] Physical/Non- physical Assist Adaptive Equipment Utilized Rolling/ Turning Scooting/ Bridging Independent Supine to Sit Independent Sit to Supine Interventions Pt was given verbal cues for to improve bed mobility. Pt was educated to log roll to their right to transition into sitting. TRANSFERS Level of [place] Physical/Non- physical Assist Adaptive Equipment Utilized Sit [...] posture, Forward head, Rounded shoulders Level of [place] Balance Support Interventions Static Sit Independent No [...] while maintaining their balance. AMBULATION Level of [place] Distance Adaptive Equipment Utilized Ambulation Independent 250' No device Apparatus: None Comments Pt had no LOB while ambulating. PT presence was necessary for: * progressing patient ambulation distances * decreasing patient's risk of falling while progressing pt's distances STANDARDIZED ASSESSMENTS [facility] 6-Clicks Mobility Assessment Difficulty patient has turning [...] 3-5 steps with a railing?: A little [facility] 6-Clicks Mobility Assessment Total : 23 ASSESSMENT [...] a.m. Participants in Care Family/Caregiver Present: No Director Of Services: Not Applicable Presentation Oxygen Therapy: None (Room [...] admission Level of Mobility: Ambulatory- community Mobility [place]: Independent gait without device History of Falls: [...] Mobility Exam: Supine to Sit Level of [place]: Independent Transfers Transfer Exam: Sit to stand Level of [place]: Independent Physical/Nonphysical Assist: Verbal Cues Transfer Exam: Stand to Sit Level of [place]: Independent Physical/Nonphysical Assist: Verbal Cues Functional Mobility [...] Develop Pain Management Plan Flowsheets (Taken 04/25/2025 9213) Pain Management Interventions: emotional support pain management [...] Review Outcome: Ongoing, Progressing Flowsheets (Taken 04/25/2025 7177) Progress: improving Plan of Care Reviewed With: [...] ICU care and multiple transfusions at the [facility] September 2024. He has had previous [...] epigastric abdominal pain which she describes as godu-ek-[id number]. He denies hematemesis although he has some [...] Code Status Full Code Allen Chen MD [facility] Medicine [1] Medications Prior to Admission Medication [...] Chema Hendrickson Date of : 1960 Room: [address] [place] [address] Referring provider: Allen Chen Reason for consultation: [...] banding. He follows with Dr. Jones in [place]. Of note, patient was recently admitted to [...] Date BACK SURGERY N/A Back Surgery from [facility] GALLBLADDER SURGERY N/A Gallbladder Surgery from [facility] TONSILECTOMY, ADENOIDECTOMY, BILATERAL MYRINGOTOMY AND TUBES N/A Tonsillectomy With Adenoidectomy from [facility] [3] Family History Problem Relation Name Age [...] Description 06/03/2025 8:30 AM EDT Clinical Support [facility] [place] [address] [place] [address] 06/03/2025 10:00 AM EDT Office Visit [facility] [place] [address] [place] [address] Daniel Marques MD [address] [place] [address] Scheduled Orders Name Type Priority Associated Diagnoses [...] 6:09 AM EDT PHOSPHORUS, PLASMA Routine 04/27/2025 6 :08 AM EDT MAGNESIUM, PLASMA Routine 04/27/2025 6:0 [...] LAB HEMATOLOGY METHOD 04/27/2025 6:24 AM EDT [facility] RBC Count 2.84(L) 4.60 - 6.10 10*6/uL LAB HEMATOLOGY METHOD 04/27/2025 6:24 AM EDT [facility] HGB 7.3(L) 13.7 - 17.5 g/dL LAB HEMATOLOGY METHOD 04/27/2025 6:24 AM EDT [facility] HCT 24.6(L) 40.0 - 51.0 % LAB HEMATOLOGY METHOD 04/27/2025 6:24 AM EDT [facility] Platelet Count 92(L) 155 - 369 10*3/uL LAB HEMATOLOGY METHOD 04/27/2025 6:24 AM EDT [facility] MCV 87 79 - 98 fL LAB HEMATOLOGY METHOD 04/27/2025 6:24 AM EDT [facility] MCH 25.7(L) 26.0 - 32.0 pg LAB HEMATOLOGY METHOD 04/27/2025 6:24 AM EDT [facility] MCHC 29.7(L) 30.7 - 35.5 g/dL LAB HEMATOLOGY METHOD 04/27/2025 6:24 AM EDT [facility] RDW 14.4 11.5 - 14.5 % LAB HEMATOLOGY METHOD 04/27/2025 6:24 AM EDT [facility] MPV 12.7(H) 8.8 - 12.5 fL LAB HEMATOLOGY METHOD 04/27/2025 6:24 AM EDT [facility] nRBC 0.0 <=0.0 per 100 WBCs LAB HEMATOLOGY METHOD 04/27/2025 6:24 AM EDT [facility] Differential Type Automated LAB HEMATOLOGY METHOD 04/27/2025 6:24 AM EDT [facility] Neutrophils % 57 % LAB HEMATOLOGY METHOD 04/27/2025 6:24 AM EDT [facility] Lymphocytes % 29 % LAB HEMATOLOGY METHOD 04/27/2025 6:24 AM EDT [facility] Monocytes % 10 % LAB HEMATOLOGY METHOD 04/27/2025 6:24 AM EDT [facility] Eosinophils % 4 % LAB HEMATOLOGY METHOD 04/27/2025 6:24 AM EDT [facility] Basophils % 0 % LAB HEMATOLOGY METHOD 04/27/2025 6:24 AM EDT [facility] Immature Granulocytes % 0 % LAB HEMATOLOGY METHOD 04/27/2025 6:24 AM EDT [facility] Neutrophils Absolute 0.78(LL) 1.60 - 6.10 10*3/uL LAB HEMATOLOGY METHOD 04/27/2025 6:24 AM EDT [facility] Lymphocytes Absolute 0.39(L) 1.20 - 3.90 10*3/uL LAB HEMATOLOGY METHOD 04/27/2025 6:24 AM EDT [facility] Monocytes Absolute 0.14(L) 0.30 - 0.90 10*3/uL LAB HEMATOLOGY METHOD 04/27/2025 6:24 AM EDT [facility] Eosinophils Absolute 0.05 0.00 - 0.50 10*3/uL LAB HEMATOLOGY METHOD 04/27/2025 6:24 AM EDT [facility] Basophils Absolute 0.00 0.00 - 0.10 10*3/uL LAB HEMATOLOGY METHOD 04/27/2025 6:24 AM EDT [facility] Immature Granulocytes Absolute 0.00 0.00 - 0.06 10*3/uL LAB HEMATOLOGY METHOD 04/27/2025 6:24 AM EDT [facility] Blood Venous blood specimen / Unknown Venipuncture / Unknown 04/27/2025 6:09 AM EDT 04/27/2025 6:14 AM EDT Narrative [facility] - 04/27/2025 6:24 AM EDT Therapeutic decision making should be based on absolute values, rather than percentages. Result Magen Lucas MD LAB BLOOD ORDERABLES Final Res ult Performing Organization Address City/[facility]/ZIP Co de Phone Number [facility] [address] [place] [address] * Phosphorus, Plasma (04/27/2025 6:08 AM EDT) Phosphorus, Plasma 4.0 2.5 - 4.5 mg/dL 04/27/2025 6:45 AM EDT [facility] Blood Venous blood specimen / Unknown Venipuncture / Unknown 04/27/2025 6:08 AM EDT 04/27/2025 6:14 AM EDT Result Magen Lucas MD LAB BLOOD ORDERABLES Final Res ult [facility] [address] [place] [address] * Magnesium, Plasma (04/27/2025 6:08 AM EDT) Magnesium, Plasma 1.9 1.9 - 2.4 mg/dL 04/27/2025 6:45 AM EDT [facility] Blood Venous blood specimen / Unknown Venipuncture / Unknown 04/27/2025 6:08 AM EDT 04/27/2025 6:14 AM EDT us Ruslan Lucas MD LAB BLOOD ORDERABLES Final Res ult [facility] [address] [place] [address] * (ABNORMAL) Basic Metabolic Panel, Plasma (04/27/2025 6:08 AM EDT) Glucose, Plasma 98 74 - 99 mg/dL 04/27/2025 6:45 AM EDT [facility] BUN, Plasma 20 8 - 23 mg/dL 04/27/2025 6:45 AM EDT [facility] Creatinine, Plasma 1.21(H) 0.70 - 1.20 mg/dL 04/27/2025 6:45 AM EDT [facility] BUN/Creatinine Ratio 17 04/27/2025 6:45 AM EDT [facility] Sodium, Plasma 140 136 - 145 mmol/L 04/27/2025 6:45 AM EDT [facility] Potassium, Plasma 3.7 3.6 - 4.9 mmol/L 04/27/2025 6:45 AM EDT [facility] Chloride, Plasma 102 97 - 107 mmol/L 04/27/2025 6:45 AM EDT [facility] CO2, Plasma 27 22 - 29 mmol/L 04/27/2025 6:45 AM EDT [facility] Anion Gap 11 6 - 16 mmol/L 04/27/2025 6:45 AM EDT [facility] Total Calcium, Plasma 7.9(L) 8.9 - 10.2 mg/dL 04/27/2025 6:45 AM EDT [facility] eGFRcr 67.3 mL/min/1.7 3m*2 04/27/2025 6:45 AM EDT [facility] Comment:Reported eGFRcr in m L/min/1.73m2 is based the CKD-EPI 2020 equation that does not use a race coefficient. Blood Venous blood specimen / Unknown Venipuncture / Unknown 04/27/2025 6:08 AM EDT 04/27/2025 6:14 AM EDT us Ruslan Lucas MD LAB BLOOD ORDERABLES Final Res ult [facility] [address] [place] [address] * (ABNORMAL) Hemoglobin and Hematocrit, Blood (04/26/2025 9:24 PM EDT) [facility] HGB 7.2(L) 13.7 - 17.5 g/dL LAB HEMATOLOGY METHOD 04/26/2025 9:39 PM EDT [facility] HCT 25.0(L) 40.0 - 51.0 % LAB HEMATOLOGY METHOD 04/26/2025 9:39 PM EDT [facility] Blood Venous blood specimen / Unknown Venipuncture / Unknown 04/26/2025 9:24 PM EDT 04/26/2025 9:30 PM EDT us Ruslan Lucas MD LAB BLOOD ORDERABLES Final Res ult Performing Organization Address [facility] de Phone Number [facility] [address] [place] [address] * ECG Adult (04/26/2025 4:53 PM EDT) [facility] EKG DIAGNOSIS CLASS Abnormal MUSE ECG Ventricular Rate 67 BPM MUSE ECG Atrial Rate 67 BPM MUSE ECG LA Interval 202 ms MUSE ECG QRSD Interval 102 ms MUSE ECG QT Interval 452 ms MUSE ECG QTC Interval 477 ms MUSE ECG P [place] 48 degrees MUSE ECG R [place] 6 degrees MUSE ECG T Wave [place] 50 degrees MUSE ECG Diagnosis Normal sinus rhythm MUSE ECG Diagnosis ST & T wave abnormlaities seen in anterior leads. MUSE ECG Diagnosis Abnormal ECG MUSE ECG Diagnosis MUSE ECG Diagnosis Confirmed by Torey Lopez ([id number]) on 04/27/2025 10:46:18 AM MUSE ECG 04/26/2025 4:53 PM EDT 04/27/2025 10:46 AM EDT us Ruslan Lucas MD ECG ORDERABLES Final Result Performing Organization Address [facility] Co de Phone Number MUSE ECG * Lavender Top (04/26/2025 8:30 AM EDT) Extra Hold for add-ons 04/26/2025 11:02 AM EDT [facility] Comment:Auto resulted. Blood Venous blood specimen / Unknown 04/26/2025 8:30 AM EDT 04/26/2025 8:46 AM EDT us Ruslan Lucas MD LAB BLOOD ORDERABLES Final Res ult Performing Organization Address [facility]/ZIP Co de Phone Number [facility] [address] [place] [address] * Light Green Top (04/26/2025 8:30 AM EDT) Extra Hold for add-ons 04/26/2025 11:02 AM EDT [facility] Comment:Auto resulted. Blood Venous blood specimen / Unknown 04/26/2025 8:30 AM EDT 04/26/2025 8:46 AM EDT us Rusaln Lucas MD LAB BLOOD ORDERABLES Final Res ult Performing Organization Address [facility] de Phone Number [facility] [address] [place] [address] * (ABNORMAL) Hepatic function panel (04/26/2025 8:30 AM EDT) Conjugated Bilirubin, Plasma 0.4(H) <=0.3 mg/dL 04/26/2025 9:15 AM EDT [facility] Alkaline Phosphatase, Plasma 139(H) 40 - 115 U/L 04/26/2025 9:15 AM EDT [facility] Total Bilirubin, Plasma 0.9 0.2 - 1.1 mg/dL 04/26/2025 9:15 AM EDT [facility] Albumin, Plasma 3.3(L) 3.5 - 5.2 g/dL 04/26/2025 9:15 AM EDT [facility] Total Protein 6.5 6.3 - 7.9 g/dL 04/26/2025 9:15 AM EDT [facility] ALT, Plasma 19 10 - 50 U/L 04/26/2025 9:15 AM EDT [facility] AST, Plasma 35 10 - 50 U/L 04/26/2025 9:15 AM EDT [facility] Blood Venous blood specimen / Unknown Venipuncture / Unknown 04/26/2025 8:30 AM EDT 04/26/2025 8:43 AM EDT us Ruslan Lucas MD LAB BLOOD ORDERABLES Final Res ult Performing Organization Address City/[facility]/ZIP Co de Phone Number [facility] [address] [place] [address] * Phosphorus, Plasma (04/26/2025 8:30 AM EDT) Phosphorus, Plasma 2.9 2.5 - 4.5 mg/dL 04/26/2025 9:15 AM EDT [facility] Blood Venous blood specimen / Unknown Venipuncture / Unknown 04/26/2025 8:30 AM EDT 04/26/2025 8:43 AM EDT us Ruslan Lucas MD LAB BLOOD ORDERABLES Final Res ult Performing Organization Address City/[facility]/ZIP Co de Phone Number [facility] [address] [place] [address] * Magnesium, Plasma (04/26/2025 8:30 AM EDT) Magnesium, Plasma 1.9 1.9 - 2.4 mg/dL 04/26/2025 9:15 AM EDT [facility] Blood Venous blood specimen / Unknown Venipuncture / Unknown 04/26/2025 8:30 AM EDT 04/26/2025 8:43 AM EDT us Ruslan Lucas MD LAB BLOOD ORDERABLES Final Res ult Performing Organization Address City/[facility] Co de Phone Number [facility] [address] [place] [address] * (ABNORMAL) Basic Metabolic Panel, Plasma (04/26/2025 8:30 AM EDT) Glucose, Plasma 96 74 - 99 mg/dL 04/26/2025 9:15 AM EDT [facility] BUN, Plasma 14 8 - 23 mg/dL 04/26/2025 9:15 AM EDT [facility] Creatinine, Plasma 1.06 0.70 - 1.20 mg/dL 04/26/2025 9:15 AM EDT [facility] BUN/Creatinine Ratio 13 04/26/2025 9:15 AM EDT [facility] Sodium, Plasma 138 136 - 145 mmol/L 04/26/2025 9:15 AM EDT [facility] Potassium, Plasma 3.7 3.6 - 4.9 mmol/L 04/26/2025 9:15 AM EDT [facility] Chloride, Plasma 101 97 - 107 mmol/L 04/26/2025 9:15 AM EDT [facility] CO2, Plasma 26 22 - 29 mmol/L 04/26/2025 9:15 AM EDT [facility] Anion Gap 11 6 - 16 mmol/L 04/26/2025 9:15 AM EDT [facility] Total Calcium, Plasma 8.3(L) 8.9 - 10.2 mg/dL 04/26/2025 9:15 AM EDT [facility] eGFRcr 78.9 mL/min/1.7 3m*2 04/26/2025 9:15 AM EDT [facility] Comment:Reported eGFRcr in m L/min/1.73m2 is based the CKD-EPI 2020 equation that does not use a race coefficient. Blood Venous blood specimen / Unknown Venipuncture / Unknown 04/26/2025 8:30 AM EDT 04/26/2025 8:43 AM EDT us Ruslan Lucas MD LAB BLOOD ORDERABLES Final Res ult [facility] [address] [place] [address] * (ABNORMAL) CBC and Differential (04/26/2025 8:30 AM EDT) WBC Count 2.89(L) 3.70 - 10.30 10*3/uL LAB HEMATOLOGY METHOD 04/26/2025 8:52 AM EDT [facility] RBC Count 3.22(L) 4.60 - 6.10 10*6/uL LAB HEMATOLOGY METHOD 04/26/2025 8:52 AM EDT [facility] HGB 8.2(L) 13.7 - 17.5 g/dL LAB HEMATOLOGY METHOD 04/26/2025 8:52 AM EDT [facility] HCT 27.8(L) 40.0 - 51.0 % LAB HEMATOLOGY METHOD 04/26/2025 8:52 AM EDT [facility] Platelet Count 99(L) 155 - 369 10*3/uL LAB HEMATOLOGY METHOD 04/26/2025 8:52 AM EDT [facility] MCV 86 79 - 98 fL LAB HEMATOLOGY METHOD 04/26/2025 8:52 AM EDT [facility] MCH 25.5(L) 26.0 - 32.0 pg LAB HEMATOLOGY METHOD 04/26/2025 8:52 AM EDT [facility] MCHC 29.5(L) 30.7 - 35.5 g/dL LAB HEMATOLOGY METHOD 04/26/2025 8:52 AM EDT [facility] RDW 14.6(H) 11.5 - 14.5 % LAB HEMATOLOGY METHOD 04/26/2025 8:52 AM EDT [facility] MPV 10.9 8.8 - 12.5 fL LAB HEMATOLOGY METHOD 04/26/2025 8:52 AM EDT [facility] nRBC 0.0 <=0.0 per 100 WBCs LAB HEMATOLOGY METHOD 04/26/2025 8:52 AM EDT [facility] Differential Type Automated LAB HEMATOLOGY METHOD 04/26/2025 8:52 AM EDT [facility] Neutrophils % 77 % LAB HEMATOLOGY METHOD 04/26/2025 8:52 AM EDT [facility] Lymphocytes % 14 % LAB HEMATOLOGY METHOD 04/26/2025 8:52 AM EDT [facility] Monocytes % 7 % LAB HEMATOLOGY METHOD 04/26/2025 8:52 AM EDT [facility] Eosinophils % 1 % LAB HEMATOLOGY METHOD 04/26/2025 8:52 AM EDT [facility] Basophils % 0 % LAB HEMATOLOGY METHOD 04/26/2025 8:52 AM EDT [facility] Immature Granulocytes % 1 % LAB HEMATOLOGY METHOD 04/26/2025 8:52 AM EDT [facility] Neutrophils Absolute 2.24 1.60 - 6.10 10*3/uL LAB HEMATOLOGY METHOD 04/26/2025 8:52 AM EDT [facility] Lymphocytes Absolute 0.39(L) 1.20 - 3.90 10*3/uL LAB HEMATOLOGY METHOD 04/26/2025 8:52 AM EDT [facility] Monocytes Absolute 0.20(L) 0.30 - 0.90 10*3/uL LAB HEMATOLOGY METHOD 04/26/2025 8:52 AM EDT [facility] Eosinophils Absolute 0.03 0.00 - 0.50 10*3/uL LAB HEMATOLOGY METHOD 04/26/2025 8:52 AM EDT [facility] Basophils Absolute 0.01 0.00 - 0.10 10*3/uL LAB HEMATOLOGY METHOD 04/26/2025 8:52 AM EDT [facility] Immature Granulocytes Absolute 0.02 0.00 - 0.06 10*3/uL LAB HEMATOLOGY METHOD 04/26/2025 8:52 AM EDT [facility] Blood Venous blood specimen / Unknown Venipuncture / Unknown 04/26/2025 8:30 AM EDT 04/26/2025 8:44 AM EDT [facility] - 04/26/2025 8:52 AM EDT Therapeutic decision making should be based on absolute values, rather than percentages. us Ruslan Lucas MD LAB BLOOD ORDERABLES Final Res ult [facility] [address] [place] [address] * (ABNORMAL) CBC W/O Differential (04/25/2025 9:17 PM EDT) WBC Count 2.68(L) 3.70 - 10.30 10*3/uL LAB HEMATOLOGY METHOD 04/25/2025 9:37 PM EDT [facility] RBC Count 2.91(L) 4.60 - 6.10 10*6/uL LAB HEMATOLOGY METHOD 04/25/2025 9:37 PM EDT [facility] HGB 7.6(L) 13.7 - 17.5 g/dL LAB HEMATOLOGY METHOD 04/25/2025 9:37 PM EDT [facility] HCT 25.3(L) 40.0 - 51.0 % LAB HEMATOLOGY METHOD 04/25/2025 9:37 PM EDT [facility] Platelet Count 74(L) 155 - 369 10*3/uL LAB HEMATOLOGY METHOD 04/25/2025 9:37 PM EDT [facility] MCV 87 79 - 98 fL LAB HEMATOLOGY METHOD 04/25/2025 9:37 PM EDT [facility] MCH 26.1 26.0 - 32.0 pg LAB HEMATOLOGY METHOD 04/25/2025 9:37 PM EDT [facility] MCHC 30.0(L) 30.7 - 35.5 g/dL LAB HEMATOLOGY METHOD 04/25/2025 9:37 PM EDT [facility] RDW 14.4 11.5 - 14.5 % LAB HEMATOLOGY METHOD 04/25/2025 9:37 PM EDT [facility] MPV 10.7 8.8 - 12.5 fL LAB HEMATOLOGY METHOD 04/25/2025 9:37 PM EDT [facility] nRBC 0.0 <=0.0 per 100 WBCs LAB HEMATOLOGY METHOD 04/25/2025 9:37 PM EDT [facility] Blood Venous blood specimen / Unknown Venipuncture / Unknown 04/25/2025 9:17 PM EDT 04/25/2025 9:30 PM EDT us Ruslan Lucas MD LAB BLOOD ORDERABLES Final Res ult [facility] [address] [place] [address] * (ABNORMAL) PT/INR (04/25/2025 9:17 PM EDT) Prothrombin Time 15.1(H) 12.0 - 14.3 sec LAB COAGULATION METHOD 04/25/2025 9:44 PM EDT [facility] INR 1.2(H) 0.9 - 1.1 LAB COAGULATION METHOD 04/25/2025 9:44 PM EDT [facility] Blood Venous blood specimen / Unknown Venipuncture / Unknown 04/25/2025 9:17 PM EDT 04/25/2025 9:30 PM EDT Narrative [facility] - 04/25/2025 9:44 PM EDT OPTIMAL INR RANGES FOR PATIENT ON ORAL ANTICOAGULANT THERAPY Prevention of venous thromboembolism INR 2.0 to 3.0 In patients with heart disease: Atrial fibrillation INR 2.0 to 3.0 Valvular heart disease INR 2.0 to 3.0 Tissue heart valves INR 2.0 to 3.0 Mechanical prosthetic valves INR 2.5 to 3.5 Prevention of recurrent MN INR 2.5 to 3.5 us Allen Chen MD LAB BLOOD ORDERABLES Final Re sult Performing Organization Address City/[facility]/ZIP [place] [address] * (ABNORMAL) Magnesium, Plasma (04/25/2025 9:17 PM EDT) Magnesium, Plasma 1.8(L) 1.9 - 2.4 mg/dL 04/25/2025 10:01 PM EDT [facility] Blood Venous blood specimen / Unknown Venipuncture / Unknown 04/25/2025 9:17 PM EDT 04/25/2025 9:30 PM EDT us Allen Chen MD LAB BLOOD ORDERABLES [place] [address] * Phosphorus (04/25/2025 9:17 PM EDT) Phosphorus, Plasma 2.7 2.5 - 4.5 mg/dL 04/25/2025 10:01 PM EDT [facility] Blood Venous blood specimen / Unknown Venipuncture / Unknown 04/25/2025 9:17 PM EDT 04/25/2025 9:30 PM EDT us Allen Chen MD LAB BLOOD ORDERABLES Final Re sult [facility] [address] [place] [address] * (ABNORMAL) Comprehensive metabolic panel (04/25/2025 9:17 PM EDT) Glucose, Plasma 92 74 - 99 mg/dL 04/25/2025 10:01 PM EDT [facility] BUN, Plasma 14 8 - 23 mg/dL 04/25/2025 10:01 PM EDT [facility] Creatinine, Plasma 0.99 0.70 - 1.20 mg/dL 04/25/2025 10:01 PM EDT [facility] BUN/Creatinine Ratio 14 04/25/2025 10:01 PM EDT [facility] Sodium, Plasma 137 136 - 145 mmol/L 04/25/2025 10:01 PM EDT [facility] Potassium, Plasma 3.8 3.6 - 4.9 mmol/L 04/25/2025 10:01 PM EDT [facility] Chloride, Plasma 104 97 - 107 mmol/L 04/25/2025 10:01 PM EDT [facility] CO2, Plasma 25 22 - 29 mmol/L 04/25/2025 10:01 PM EDT [facility] Anion Gap 8 6 - 16 mmol/L 04/25/2025 10:01 PM EDT [facility] Total Calcium, Plasma 8.0(L) 8.9 - 10.2 mg/dL 04/25/2025 10:01 PM EDT [facility] Total Protein 5.7(L) 6.3 - 7.9 g/dL 04/25/2025 10:01 PM EDT [facility] Albumin, Plasma 3.1(L) 3.5 - 5.2 g/dL 04/25/2025 10:01 PM EDT [facility] AST, Plasma 33 10 - 50 U/L 04/25/2025 10:01 PM EDT [facility] ALT, Plasma 18 10 - 50 U/L 04/25/2025 10:01 PM EDT [facility] Alkaline Phosphatase, Plasma 132(H) 40 - 115 U/L 04/25/2025 10:01 PM EDT [facility] Total Bilirubin, Plasma 0.7 0.2 - 1.1 mg/dL 04/25/2025 10:01 PM EDT [facility] eGFRcr 85.6 mL/min/1.7 3m*2 04/25/2025 10:01 PM EDT [facility] Comment:Reported eGFRcr in m L/min/1.73m2 is based the CKD-EPI 2020 equation that does not use a race coefficient. Blood Venous blood specimen / Unknown Venipuncture / Unknown 04/25/2025 9:17 PM EDT 04/25/2025 9:30 PM EDT us Allen Chen MD LAB BLOOD ORDERABLES Final Re sult [facility] [address] [place] [address] * Transfuse RBC (04/25/2025 8:07 PM EDT) [...] Pablo Mcknight MD Anesthesiologist Graciela Andrade Endo [employer] Preprocedure A history and physical has been [...] mean PAP 21 mmHg NNAMDI ISCV PA LA(ACCEL) 22.0 mmHg NNAMDI ISCV PA acc slope [...] is no recent study available for direct kauk-gk-gxuv comparison. Left Ventricle Based on the linear [...] is no recent study available for direct xycl-dh-zqny comparison. us Allen Chen MD CV ECHO [...] Units (04/25/2025 1:49 PM EDT) Product Code X1316T94 BLOO D BANK Dispense Status Transfused BLOOD BANK Blood Expiration Date [id number] BLOOD BANK Unit Number [id number] B LOOD BANK Product Blood Type 5100 BLOOD BANK Blood Type O+ BLOOD BANK Crossmatch Compatible BLOOD BANK Other Ruslan Lucas MD BLOOD BANK PRODUCT ORDERABLES Final Result BLOOD BANK [address] [place] [address], * (ABNORMAL) Comprehensive metabolic panel (04/25/2025 12:45 PM EDT) Glucose, Plasma 86 74 - 99 mg/dL 04/25/2025 1:23 PM EDT [facility] BUN, Plasma 16 8 - 23 mg/dL 04/25/2025 1:23 PM EDT [facility] Creatinine, Plasma 1.06 0.70 - 1.20 mg/dL 04/25/2025 1:23 PM EDT [facility] BUN/Creatinine Ratio 15 04/25/2025 1:23 PM EDT [facility] Sodium, Plasma 140 136 - 145 mmol/L 04/25/2025 1:23 PM EDT [facility] Potassium, Plasma 3.9 3.6 - 4.9 mmol/L 04/25/2025 1:23 PM EDT [facility] Chloride, Plasma 107 97 - 107 mmol/L 04/25/2025 1:23 PM EDT [facility] CO2, Plasma 25 22 - 29 mmol/L 04/25/2025 1:23 PM EDT [facility] Anion Gap 8 6 - 16 mmol/L 04/25/2025 1:23 PM EDT [facility] Total Calcium, Plasma 8.1(L) 8.9 - 10.2 mg/dL 04/25/2025 1:23 PM EDT [facility] Total Protein 5.7(L) 6.3 - 7.9 g/dL 04/25/2025 1:23 PM EDT [facility] Albumin, Plasma 3.0(L) 3.5 - 5.2 g/dL 04/25/2025 1:23 PM EDT [facility] AST, Plasma 30 10 - 50 U/L 04/25/2025 1:23 PM EDT [facility] ALT, Plasma 21 10 - 50 U/L 04/25/2025 1:23 PM EDT [facility] Alkaline Phosphatase, Plasma 130(H) 40 - 115 U/L 04/25/2025 1:23 PM EDT [facility] Total Bilirubin, Plasma 0.3 0.2 - 1.1 mg/dL 04/25/2025 1:23 PM EDT [facility] eGFRcr 78.9 mL/min/1.7 3m*2 04/25/2025 1:23 PM EDT [facility] Comment:Reported eGFRcr in m L/min/1.73m2 is based the CKD-EPI 2020 equation that does not use a race coefficient. Blood Venous blood specimen / Unknown Venipuncture / Unknown 04/25/2025 12:45 PM EDT 04/25/2025 12:54 PM EDT us Allen Chen MD LAB BLOOD ORDERABLES Final Re sult [facility] [address] [place] [address] * (ABNORMAL) Hemogram (CBC) (04/25/2025 12:45 PM EDT) WBC Count 2.17(L) 3.70 - 10.30 10*3/uL LAB HEMATOLOGY METHOD 04/25/2025 3:00 PM EDT [facility] RBC Count 2.39(L) 4.60 - 6.10 10*6/uL LAB HEMATOLOGY METHOD 04/25/2025 3:00 PM EDT [facility] HGB 6.0(LL) 13.7 - 17.5 g/dL LAB HEMATOLOGY METHOD 04/25/2025 3:00 PM EDT [facility] HCT 21.3(L) 40.0 - 51.0 % LAB HEMATOLOGY METHOD 04/25/2025 3:00 PM EDT [facility] Platelet Count 72(L) 155 - 369 10*3/uL LAB HEMATOLOGY METHOD 04/25/2025 3:00 PM EDT [facility] MCV 89 79 - 98 fL LAB HEMATOLOGY METHOD 04/25/2025 3:00 PM EDT [facility] MCH 25.1(L) 26.0 - 32.0 pg LAB HEMATOLOGY METHOD 04/25/2025 3:00 PM EDT [facility] MCHC 28.2(L) 30.7 - 35.5 g/dL LAB HEMATOLOGY METHOD 04/25/2025 3:00 PM EDT [facility] RDW 14.9(H) 11.5 - 14.5 % LAB HEMATOLOGY METHOD 04/25/2025 3:00 PM EDT [facility] MPV 11.8 8.8 - 12.5 fL LAB HEMATOLOGY METHOD 04/25/2025 3:00 PM EDT [facility] nRBC 0.0 <=0.0 per 100 WBCs LAB HEMATOLOGY METHOD 04/25/2025 3:00 PM EDT [facility] Blood Venous blood specimen / Unknown Venipuncture / Unknown 04/25/2025 12:45 PM EDT 04/25/2025 1:00 PM EDT Allen Chen MD LAB BLOOD ORDERABLES Final Re sult [facility] [address] [place] [address] * Prepare Leukocyte Reduced RBC: 1 Units (04/25/2025 12:28 PM EDT) Product Code C5691C07 CH BLOO D BANK Dispense Status Transfused BLOOD BANK Blood Expiration Date [id number] BLOOD BANK Unit Number [id number] CH B LOOD BANK Product Blood Type 5100 BLOOD BANK Blood Type O+ BLOOD BANK Crossmatch Compatible BLOOD BANK Other Allen Chen MD BLOOD BANK PRODUCT ORDERABLES Final Result Performing Organization Address [facility] de Phone Number BLOOD BANK [address] documented in this encounter Visit Diagnoses [...] Discontinued, Routine 1607 (Not Given - Provider: Alicia Woo - Reason: Patient in procedure)1999 (Given [...] documented as of this encounter Care Teams Airplane Designer Relationship Specialty Start Date End Date López Alicea MD [address] [place] [address] PCP - General 02/24/25 Slade Lennon PA [address] [place] [address] Referring Physician Gastroenterology 03/19/25 documented as of this encounter
--- OUTSIDE RECORDS SUMMARY | 2025-04-25 16:25 | XMS_ITS | Encounter Summary ---
Author Organization Healthcare Address [address] [id number] Care Team Providers Care Lamp Shades Supervisor Name Role Phone López Alicea MD Primary Care Provider [phone] Slade Lennon Unavailable Reason for Visit * Auth/Cert (Routine) Specialty Diagnoses / Procedures Referred By Contac t Referred To Contact Diagnoses GIB (gastrointestinal bleeding) Gastrointestinal hemorrhage with melena melena, GI bleed hgb 6.9 Ruslan Lucas MD [address] [place] [address] Phone: tel: fax: [facility] [address] [place] [address] Phone: tel: Referral ID Status Reason Start Date Expiration Date Visits Re quested Visits Authorized [id number] 1 1 Encounter Details Date Type Department Care Team (Late st Contact Info) Description 04/25/2025 4:25 PM EDT Anesthesia Event [facility] [address] [place] [phone] Juan Pablo Mcknight MD [address] [place] [address] Anesthesia Record Procedure Summary Procedure Name Responsible Anesthesiologist Anesthesia Start Time Anesthesia Stop Time EGD Juan Pablo Mcknight MD 04/25/25 1625 04/25 1653 Events Date Time Event Comment 04/25/2025 1625 An Start The patient was reevaluated immediately before sedation and remains eligible for anesthesia plan. 1625 In Room 1625 An Start Data 1626 Anesthesia Ready 1631 Proc Start 1641 Proc Fin 1646 an stop data 1647 Out of Room 1653 Handoff to Receiving I compl eted my handoff to the receiving clinician during which we: 1. Identified the patient 2. Identified the responsible provider 3. Reviewed the pertinent medical history 4. Discussed the surgical course 5. Reviewed intra-op anesthesia management and issues during anesthesia 6. Set expectations for post-procedure period 7. Allowed opportunity for questions and acknowledgement of understanding. 1652 An Stop Meds Name Total propofol (Diprivan) injection 10 mg/mL 3 00 mg lidocaine PF (Xylocaine-MPF) 2% 100 mg sodium chloride 0.9 % infusion 200 mL * Agents Name O2 N2O Air N2O Inspired N2O * Blood No blood administrations on file. Lines, Drains, and Airways Type Details Placement Removal Peripheral IV Placement Date: 04/02 02/23; Placement Time: 1150; Catheter Size: 20 G; Orientation: Anterior, Left; Location: Forearm; Insertion Attempts: 2; Patient Tolerance: Tolerated well; Removal Date: 04/27/25; Removal Time: 1008; Removal Reason: Infiltrated 04/25/25 1150 by Alicia Woo R 04/27/25 1008 by Werner Chahal RN Peripheral IV Placement Date: 04/02 02/23; Placement Time: 165; Catheter Size: 20 G (USG PIV Right FA #20G 2.00 ); Orientation: Anterior, Right; Location: Forearm; Site Prep: Chlorhexidine ; Local Anesth: None; Technique: Ultrasound guidance; Inserted by: Aarti Terrell RN VAT; Insertion Attempts: 1; Patient Tolerance: Tolerated well; Removal Date: 04/27/25; Removal Time: 1558; Removal Reason: Discharge 04/25/25 1652 by Ana Luisa Terrell RN 04/27/25 1558 by Werner Chahal RN documented in this encounter Social History Tobacco Use Types Packs/Day Years [...] any time in the past 12 m [place], were you homeless or living in a skilled nursing (including now)? No 02/27/2025 Utilities Answer Date Recorded In the past 12 months has th e electric, gas, oil, or water company threatened to shut off services in your home? No 02/27/2025 Sex and Gender Information Value Date Recorded Sex Assigned at Not on file Legal Sex Male 8:05 PM EDT Gender Identity Not on file Sexual Orientation Not on file documented as of this encounter Functional Status * Over the [...] usual. Not at all 04/25/2025 7:21 AM ARIANAT Dominick Cornelius Thoughts that you would be b valente off or hurting yourself in some way Not at all 04/25/2025 7:21 AM EDT Dominick Cornelius Patient Health Questionnaire -9 Score 5 04/25/2025 7:21 AM EDT Dominick Cornelius * Calculated C-SSRS Risk Score (Lifetime/Recent) Answer Date of Assessment Author No Risk Indicated 04/25/2025 11:00 AM EDT Alicia Woo * If you checked off any problems [...] to be (Past 1 Month) No 025 11:00 AM EDT Alicia Woo 2. Non-Specific Active Suici sully Thoughts (Past 1 Month) No 04/25/2025 11:00 AM EDT Alicia Woo 6. Suicidal Behavior (Lifetime) No 11:00 AM EDT Alicia Woo documented as of this encounter Miscellaneous Notes * Anesthesia Postprocedure Evaluation - Yariel Ortega CRNA - 04/25/2025 4:53 PM EDT Patient: Chema Hendrickson Anesthesia Type: general Vitals Value Taken Time BP 139/90 04/25/25 16:53 Temp 97.8 04/25/25 16:53 Pulse 81 04/25/25 16:53 Resp 18 04/25/25 16:53 SpO2 100 04/25/25 16:53 Anesthesia Post Evaluation Patient location during evaluation: PACU Patient participation: complete - patient participated Level of consciousness: awake Pain management: adequate (pain score 0-3) Airway patency: natural airway Cardiovascular status: acceptable and hemodynamically stable Respiratory status: acceptable and blow-by oxygen Hydration status: acceptable Nausea/Vomiting: No No notable events documented. * Anesthesia Preprocedure Evaluation - Juan Pablo Mcknight MD - 04/25/2025 3:13 PM EDT Images from the original note were not included. No anesthesia staff entered. Patient: Chema Hendrickson HPI Chema Hendrickson is a 64 y.o. male with body mass index is unknown because there is no height orweight on file. who presents with No Principal Problem: There is no principal problem currently on the Problem List. Please update the Problem List and refresh., now for Procedure Information Date/Time: 04/25/25 1530 Scheduled providers: Eddie Terrell MD Procedure: EGD Location: [facility] Relevant Problems Cardio (+) Hypertension GI (+) GI bleed (+) GIB (gastrointestinal bleeding) (+) Obesity (+) Other cirrhosis of liver (CMS/HCC) /Renal (+) BPH (benign prostatic hyperplasia) (+) Other cirrhosis of liver (CMS/HCC) Chema Hendrickson is a 64 y.o. 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 Of note, patient was admitted from09/30/2024 - 10/03/2024 at [facility] with a hemoglobin of 5.5 and received 5U pRBC and 1U FFP. For suspected GIB, underwent EGD with small EV and GAVE s/p 8 gastric band and iron infusion, with plan to repeat EGD in 4-6 weeks. He had a repeated EGD on 11/2024 which reportedly show no esophageal varices, plan to repeat another EGD in 6 months. Patient reports that he underwent EGD last Monday at [facility]. 09/2024: Mac 4 (VL), 7.5 ETT, grade 1 view, 1 attempt Past Medical History: Diagnosis Date BPH (benign prostatic hyperplasia) Depression Generalized anxiety disorder Anxiety, generalized Gout Hypertension Obesity Other chronic pain Chronic pain Personal history of other diseases of the digestive system History of esophageal reflux Personal history of other endocrine, nutritional and metabolic disease History of type 2 diabetes mellitus Unspecified osteoarthritis, unspecified site Chronic osteoarthritis 3/6 Systolic murmur at LSB, difficult to quantify more precisely. The risks, options, and benefits of general anesthesia were discussed with the patient. All questions addressed. Rationale reviewed. Patient understands options (including no intervention), prefers general anesthesia. ALLERGIES Allergies[1] NPO STATUS Past Medical History[2] AIRWAY HISTORY Airway Detailed Review Displaying the 20 most recent records Date Difficult Airway Blade Size ETT Size C-L Class Final Type Intubation Method 02/26/25 No 09/30/24 - - - - - - MEDICATIONS Outpatient Current Outpatient Medications Medication Instructions allopurinol (ZYLOPRIM) 300 mg, Daily buPROPion SR (WELLBUTRIN SR) 150 mg, Daily busPIRone (Buspar) 10 MG tablet 2 tablets, 2 times daily colchicine (COLCRYS) 0.6 mg, Daily furosemide (LASIX) 40 mg, Oral, Daily gabapentin (NEURONTIN) 600 mg, Oral, 3 times daily hydrOXYzine HCl (ATARAX) 50 mg, Every 6 hours PRN OLANZapine (ZYPREXA) 5 mg, Nightly ondansetron ODT (ZOFRAN-ODT) 4 mg, Oral, Every 8 hours PRN OxyCONTIN 40 mg, 2 times daily pantoprazole (PROTONIX) 40 mg, Daily before breakfast promethazine (Phenergan) 25 MG tablet Take 1/2 to 1 tablet ever 6 hours as needed for nausea or vomiting. sertraline (ZOLOFT) 100 mg, Daily spironolactone (ALDACTONE) 100 mg, Daily spironolactone (ALDACTONE) 50 mg, Oral, Daily SUMAtriptan (Imitrex) 100 MG tablet TAKE 1/2 TO 1 TABLET BY MOUTH AT ONSET OF HEADACHE, MAY REPEAT DOSE ONCE IN 2 HOURS IF NO RELIEF. tamsulosin (FLOMAX) 0.4 mg, Nightly tiZANidine (ZANAFLEX) 4 mg, 2 times daily PRN Scheduled Current Scheduled Medications[3] PRNs Current PRN Medications[4] SURGICAL HX: Surgical History[5] SOCIAL HX: Social History[6] OBJECTIVE DATA LABS Lab Results Component Value Date WBC 2.17 (L) 04/25/2025 HGB 6.0 (LL) 04/25/2025 HCT 21.3 (L) 04/25/2025 MCV 89 04/25/2025 PLT 72 (L) 04/25/2025 Lab Results Component Value Date CALCIUM 8.1 (L) 04/25/2025 BUN 16 04/25/2025 CREATININE 1.06 04/25/2025 BCR 15 04/25/2025 NA 140 04/25/2025 K 3.9 04/25/2025 CL 107 04/25/2025 CO2 25 04/25/2025 CA 9.0 05/12/2015 Type and Screen ABO/Rh Date Value Ref Range Status 04/25/2025 O Positive Final Results from last 7 days Lab Units 04/25/25 0706 INR 1.1 Lab Results Component Value Date HGBA1C 4.6 (L) 04/29/2024 Lab Results Component Value Date PGLU 92 03/01/2025 GLUCOSE 86 04/25/2025 ABG No results found for: PHART , RDI6WOP , PO2ART , SO2ART , BEART , YGL4DCI , HCTART , SODIUMART , POTASSIUMART , POCTCL , POCGLU , IONCALART , LACTATE Lab Results Component Value Date CAION 4.3 (L) 02/25/2025 ECHO No echocardiogram results found for the past 12 months PFTs No results found for: PTW2FBW , QRH6RTDT , CNM4AJZ , FVCPRED BP Readings from Last 5 Encounters: 04/25/25 (!) 142/72 04/25/25 (!) 158/85 03/03/25 131/79 02/24/25 (!) 158/74 Physical Exam Airway Mallampati: II Mouth opening: normal TM distance: >3 FB Neck ROM: full Cardiovascular Rhythm: regular Rate: normal (+) murmur Dental Pulmonary Breath sounds clear to auscultation Neurological Skin Musculoskeletal Extremities Anesthesia Plan ASA 4 Anesthesia technique(s) discussed with the patient/family: general Anesthesia plan agreed upon was: general Anesthetic plan and risks discussed with patient. Anesthesia Evaluation [1] Allergies Allergen Reactions Celecoxib Unknown - Patient states they do not know rxn details [2] Past Medical History: Diagnosis Date BPH (benign prostatic hyperplasia) Depression Generalized anxiety disorder Anxiety, generalized Gout Hypertension Obesity Other chronic pain Chronic pain Personal history of other diseases of the digestive system History of esophageal reflux Personal history of other endocrine, nutritional and metabolic disease History of type 2 diabetes mellitus Unspecified osteoarthritis, unspecified site Chronic osteoarthritis [3] [4] [5] Past Surgical History: Procedure Laterality Date BACK SURGERY N/A Back Surgery from [facility] GALLBLADDER SURGERY N/A Gallbladder Surgery from [facility] TONSILECTOMY, ADENOIDECTOMY, BILATERAL MYRINGOTOMY AND TUBES N/A Tonsillectomy With Adenoidectomy from [facility] [6] Social History Tobacco Use Smoking status: Never Smokeless tobacco: Never Substance Use Topics Alcohol use: No Drug use: Never documented in this encounter Plan of Treatment Upcoming Encounters Date Type Department Care Team (Late st Contact Info) Description 06/03/2025 8:30 AM EDT Clinical Support [facility] [address] [place] [address] 06/03/2025 10:00 AM EDT Office Visit [facility] [place] [address] [place] [phone] Daniel Marques MD [address] [place] [address] documented as of this encounter Goals Goal Patient Goal Type Associated Problems Recent Progress Patient-Stated? Author Autogenerat ed Goal Care Plan Autogenerated Problem No Andreia Grossman RN Autogenerat ed Goal Care Plan Autogenerated Problem No Angelina Lorenzo RN documented as of this encounter Visit Diagnoses Not on filedocumented in this encounter Administered Medications Inactive Administered Medications - up to 3 most recent administrations Medication Order MAR Action Action Date Dose Rate Site lidocaine PF (Xylocaine) 2 % injection Intravenous, As needed, Starting on Mon04/25/25 at 1627, Until Mon04/25/25 at 1653, Routine, Anesthesia Intraprocedure Given 04/25/2025 4:27 PM EDT 100 mg propofol (Diprivan) injection Intravenous, As needed, Starting on Mon04/25/25 at 1629, Until Mon04/25/25 at 1653, Routine, Anesthesia Intraprocedure Given 04/25/2025 4:40 PM EDT 20 mg Given 04/25/2025 4:39 PM EDT 20 mg Given 04/25/2025 4:38 PM EDT 20 mg sodium chloride 0.9 % infusion Intravenous, Continuous PRN, Starting on Mon04/25/25 at 1625, Until Mon04/25/25 at 1653, Routine New Bag 04/25/2025 4:25 PM EDT documented in this encounter Additional Health Concerns [...] documented as of this encounter Care Teams Lamp Shades Supervisor Relationship Specialty Start Date End Date López Alicea MD [address] [place] [address] PCP - General 02/24/25 Slade Lennon PA [address] [place] [address] Referring Physician Gastroenterology 03/19/25 documented as of this encounter
--- OUTSIDE RECORDS SUMMARY | 2025-05-29 10:38 | XMS_ITS | Clinical Summary ---
Author Organization [facility] Address [address] [place] [address] Care Team Providers Care National Expansion Recruiter Name Role Phone López Alicea MD Primary Care Provider Allergies Active Allergy Reactions Criticality Noted Date Comments Celecoxib 04/26/2016 Medications Ferrous Sulfate (IRON) 325 (65 FE) MG tablet Take by mouth 2 (two) times a day. 09/15/20 15 Active vitamin E (vitamin E) 400 UNIT capsule Take 1 capsule by mouth Daily. 30 capsule 5 01/18/20 19 Active ondansetron (ZOFRAN) 4 MG tabletIndications :Nausea TAKE 1 TABLET BY MOUTH EVERY 8 HOURS NEEDED FOR NAUSEA/VOMI TING 30 tablet 1 07/26/20 23 Active carvedilol (COREG) 25 MG tabletIndications :Benign essential hypertension TAKE ONE TABLET BY MOUTH 2 TIMES A DAY WITH MEALS 60 tablet 2 09/05/20 24 Active pantoprazole (PROTONIX) 40 MG EC tabletIndications :Gastroesophageal reflux disease with esophagitis TAKE ONE TABLET BY MOUTH ONCE A DAY 30 tablet 5 12/10/19 25 Active OLANZapine (zyPREXA) 5 MG tabletIndications :Visual hallucination,Reji or depressive disorder, recurrent episode, moderate degree TAKE ONE TABLET BY MOUTH AT BEDTIME 30 tablet 5 02/05/20 25 Active tamsulosin (FLOMAX) 0.4 MG capsule 24 hr capsuleIndication s:Benign prostatic hyperplasia (BPH) with straining on urination TAKE ONE CAPSULE BY MOUTH EVERY NIGHT 30 capsule 5 02/05/20 25 Active sucralfate (CARAFATE) 1 GM/10ML suspension Active SUMAtriptan (IMITREX) 100 MG tabletIndications :Migraine without aura and without status migrainosus, not intractable TAKE 1/2 TO 1 TABLET BY MOUTH AT ONSET OF HEADACHE, MAY REPEAT DOSE ONCE IN 2 HOURS IF NO RELIEF. 12 tablet 03/06/20 25 Active hydrOXYzine (ATARAX) 50 MG tablet Take 1 tablet by mouth Every 6 (Six) Hours As Needed. Active naloxone (NARCAN) 4 MG/0.1ML nasal sprayIndications: Chronic pain syndrome Call 911. Don't prime. [place] in 1 nostril for overdose. Repeat in 2-3 minutes in other nostril if no or minimal breathing/r esponsivene ss. 2 each 03/10/20 25 Active glucose monitor monitoring kitIndications:Ty pe 2 diabetes mellitus without complication, without long-term current use of insulin Check blood sugars once daily 1 each 03/10/20 25 Active glucose blood test stripIndications: Type 2 diabetes mellitus without complication, without long-term current use of insulin Check blood sugars once daily 100 each 03/10/20 25 Active Lancets 30G miscIndications:T ype 2 diabetes mellitus without complication, without long-term current use of insulin Check blood sugars once daily 100 each 03/10/20 25 Active furosemide (LASIX) 20 MG tablet Take 1 tablet by mouth Daily. 30 tablet 2 04/07/20 25 Active gabapentin (NEURONTIN) 800 MG tabletIndications :Chronic pain syndrome,Degenera tion of intervertebral disc of lumbar region Take 1 tablet by mouth 3 times a day. 90 tablet 04/07/20 25 Active spironolactone (ALDACTONE) 50 MG tablet Take 1 tablet by mouth Daily. 30 tablet 2 04/07/20 25 Active hydrOXYzine pamoate (VISTARIL) 50 MG capsule TAKE ONE CAPSULE BY MOUTH EVERY 6 HOURS NEEDED FOR ITCHING 45 capsule 05/07/20 25 Active promethazine (PHENERGAN) 25 MG tabletIndications :Nausea TAKE 1/2 TO 1 TABLET BY MOUTH EVERY 6 HOURS NEEDED FOR NAUSEA/VOMI TING 15 tablet 05/07/20 25 Active tiZANidine (ZANAFLEX) 4 MG tabletIndications :Chronic pain syndrome TAKE ONE TABLET BY MOUTH 2 TIMES A DAY NEEDED FOR MUSCLE SPASMS 40 tablet 5 05/12/20 25 Active oxyCODONE ER (OxyCONTIN) 40 MG 12 hr tabletIndications :Chronic pain syndrome,Degenera tion of intervertebral disc of lumbar region Take 1 tablet by mouth Every 12 (Twelve) Hours. 60 tablet 05/13/20 25 Active oxyCODONE-acetami nophen (PERCOCET) 10-325 MG per tabletIndications :Chronic pain syndrome,Degenera tion of intervertebral disc of lumbar region Take 1 tablet by mouth Every 8 (Eight) Hours As Needed for Moderate Pain. 90 tablet 05/13/20 25 Active amLODIPine (NORVASC) 10 MG tablet TAKE ONE TABLET BY MOUTH ONCE A DAY 30 tablet 5 05/22/20 25 Active colchicine 0.6 MG tabletIndications :Idiopathic gout, unspecified chronicity, unspecified site TAKE ONE TABLET BY MOUTH ONCE A DAY 30 tablet 5 05/22/20 25 Active busPIRone (BUSPAR) 10 MG tabletIndications :Anxiety TAKE TWO TABLETS BY MOUTH 2 TIMES A DAY 120 tablet 5 05/22/20 25 Active allopurinol (ZYLOPRIM) 300 MG tabletIndications :Idiopathic gout, unspecified chronicity, unspecified site TAKE ONE TABLET BY MOUTH EVERY DAY 30 tablet 5 05/22/20 25 Active sertraline (ZOLOFT) 100 MG tabletIndications :Dysthymia TAKE TWO TABLETS BY MOUTH ONCE A DAY 60 tablet 5 05/22/20 25 Active buPROPion SR (WELLBUTRIN SR) 150 MG 12 hr tabletIndications :Major depressive disorder, recurrent episode, moderate degree TAKE ONE TABLET BY MOUTH 3 TIMES A DAY 30 tablet 2 05/22/20 25 Active potassium chloride 10 MEQ CR tabletIndications :Potassium deficiency TAKE 2 TABLETS BY MOUTH EVERY MORNING AND TAKE 1 TABLET EVERY EVENING 90 tablet 1 05/22/20 25 Active allopurinol (ZYLOPRIM) 300 MG tabletIndications :Idiopathic gout, unspecified chronicity, unspecified site TAKE ONE TABLET BY MOUTH EVERY 30 tablet 5 12/10/19 25 025 Discontinued sertraline (ZOLOFT) 100 MG tabletIndications :Dysthymia TAKE TWO TABLETS BY MOUTH ONCE A DAY 60 tablet 5 12/10/19 25 025 Discontinued tiZANidine (ZANAFLEX) 4 MG tabletIndications :Chronic pain syndrome TAKE ONE TABLET BY MOUTH 2 TIMES A DAY NEEDED FOR MUSCLE SPASMS 40 tablet 5 12/10/19 25 025 Discontinued busPIRone (BUSPAR) 10 MG tabletIndications :Anxiety TAKE TWO TABLETS BY MOUTH 2 TIMES A DAY 120 tablet 5 12/10/19 25 025 Discontinued promethazine (PHENERGAN) 25 MG tabletIndications :Nausea TAKE 1/2 TO 1 TABLET BY MOUTH EVERY 6 HOURS NEEDED FOR NAUSEA/VOMI TING 15 tablet 5 12/10/19 25 025 Discontinued colchicine 0.6 MG tabletIndications :Idiopathic gout, unspecified chronicity, unspecified site TAKE ONE TABLET BY MOUTH ONCE A DAY 30 tablet 5 12/10/19 25 025 Discontinued amLODIPine (NORVASC) 10 MG tablet TAKE ONE TABLET BY MOUTH ONCE A DAY 30 tablet 5 12/10/19 25 025 Discontinued buPROPion SR (WELLBUTRIN SR) 150 MG 12 hr tabletIndications :Major depressive disorder, recurrent episode, moderate degree TAKE ONE TABLET BY MOUTH 3 TIMES A DAY 30 tablet 2 02/11/20 25 025 Discontinued potassium chloride 10 MEQ CR tabletIndications :Potassium deficiency 2 p.o. every morning and 1 p.o. q. evening 90 tablet 1 03/11/20 025 Discontinued oxyCODONE ER (OxyCONTIN) 40 MG 12 hr tabletIndications :Chronic pain syndrome,Degenera tion of intervertebral disc of lumbar region Take 1 tablet by mouth Every 12 (Twelve) Hours. 60 tablet 04/09/20 25 025 Discontinued(R eorder) oxyCODONE-acetami nophen (PERCOCET) 10-325 MG per tabletIndications :Chronic pain syndrome,Degenera tion of intervertebral disc of lumbar region Take 1 tablet by mouth Every 8 (Eight) Hours As Needed for Moderate Pain. 90 tablet 04/09/20 025 Discontinued(R eorder) Active Problems Problem Noted Date Diagnosed Date Bilateral leg weakness 02/11/2025 Assessment & Plan (02/11/2025 2:22 PM EDT): Complete blood work. Complete EEG to assess for potential seizure activity. Advised patient to reach out to neurologist for further evaluation/workup or consider a referral to an alternative neurologist. Discussed the benefits of imaging of the head in detail but patient refused. Discussed signs/symptoms that warrant emergency medical attention. Follow up as scheduled with PCP. Iron deficiency anemia 11/21/2024 Iron deficiency 12/02/2021 Anxiety 04/26/2016 Anemia 04/26/2016 Arthritis 04/26/2016 Benign essential hypertension 04/26/2016 Non-alcoholic cirrhosis 04/26/2016 Depression 04/26/2016 Diabetes mellitus 04/26/2016 Gastroesophageal reflux disease with esophagitis 04/26/2016 Insomnia 04/26/2016 Lymphedema 04/26/2016 Overview (04/26/2016): Description: Right arm Renal insufficiency 04/26/2016 Vitamin D deficiency 04/26/2016 Gout 04/05/2016 Chronic pain 02/04/2016 Degeneration of intervertebral disc of lumbar re gion 02/04/2016 Encounters Date Type Department Care Team Description 05/22/2025 Refill [facility] [address] [place] [address] López Alicea MD Idiopathic gout, unspecified chronicity, unspecified site; Anxiety; Dysthymia; Major depressive disorder, recurrent episode, moderate degree; Potassium deficiency 05/13/2025 Telephone [facility] [address] [facility] [place] [address] López Alicea MD Med Refill 05/12/2025 Refill [facility] [address] [place] [address] López Alicea MD Chronic pain syndrome 05/09/2025 Telephone [facility] [address] [place] [address] López Alicea MD Call from [facility] 05/07/2025 Refill [facility] [address] [place] [address] López Alicea MD Nausea 05/04/2025 Refill [facility] [address] [place] [address] López Alicea MD 04/30/2025 Transitional Care Management Telephone Encounter [facility] [address] [place] [address] Del Grossman RN 04/29/2025 Transitional Care Management Telephone Encounter [facility] [address] [place] [address] Jane Mckinnon, SERVANDO 04/29/2025 Transitional Care Management Telephone Encounter [facility] [address] [place] [address] Jane Mckinnon, SERVANDO 04/28/2025 Readmission Management [facility] [address] [facility] [address] Rosangela Steen RN 04/09/2025 Telephone [facility] [address] [facility] [place] [address] López Alicea MD Medication Problem 04/07/2025 Refill [facility] [address] [facility] [place] [address] López Alicea MD Chronic pain syndrome; Degeneration of intervertebral disc of lumbar region 03/11/2025 Results Follow-Up [facility] [address] [facility] [place] [address] López Alicea MD 03/10/2025 11:30 AM EDT Office Visit [facility] [address] [facility] [place] [address] López Alicea MD Gastrointestinal hemorrhage associated with gastric ulcer (Primary Dx); 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; Chronic pain syndrome; Degeneration of intervertebral disc of lumbar region with discogenic back pain and lower extremity pain; Degeneration of intervertebral disc of lumbar region; Anemia, unspecified type; Type 2 diabetes mellitus without complication, without long-term current use of insulin 03/10/2025 Travel 03/06/2025 Refill [facility] [address] [facility] [place] [address] Fito Garay MD Chronic pain syndrome; Degeneration of intervertebral disc of lumbar region 03/06/2025 Refill [facility] [address] [place] [address] López Alicea MD Migraine without aura and without status migrainosus, not intractable 03/04/2025 Transitional Care Management Telephone Encounter [facility] [address] [place] [address] Del Grossman RN 03/03/2025 Readmission Management [facility] [address] [place] [address] Renee Malcolm RN from Last 3 Months Immunizations Immunization Administration Dates Next Due 31-influenza Vac Quardvalent Preservativ 08/02/2019 COVID-19 (TIFFANIE) 09/03/2021,02/08/2021 COVID-19 (PFIZER) BIVALENT 12+YRS 08/12/2021 Fluzone >6mos 07/30/2024,07/21/2017,07/26/2013 Fluzone (or Fluarix & Flulav al for VFC) >6mos 07/25/2022,07/16/2021,06/23/2020,2016,08/29/2016,07/20/2015 Fluzone Quad >6mos (Multi-dose) 07/19/2021,07/21 Hepatitis B 12/21/2015,04/21/2015,02/17/2015 Influenza, Unspecified 08/02/2022,2020,08/02/2019,2016,08/29/2016,07/20/2015 Tdap 10/25/2014 influenza Split 08/29/2016 Family History Medical History Relation Name Comments Hypertension Father Stomach cancer Father Relation Name Status Comments Brother Alive Father Maternal Grandfather Maternal Grandmother Maternal Uncle Alive Mother Paternal Aunt 1 Paternal Aunt 2 Paternal Grandfather Paternal Grandmother Paternal Uncle 1 Paternal Uncle 2 Social History Tobacco Use Types Packs/Day Years Used Date Smoking Tobacco: Never Smokeless Tobacco: Never Alcohol Use Standard Drinks/Week Comments No 0 (1 standard drink = 0.6 oz pur e alcohol) PHQ-2 Answer Date Recorded Retired PHQ-9: Brief Depression Severity Measure Score 17 10/07/2022 PHQ-2 Answer Date Recorded Patient Health Questionnaire-9 Score 10 11/26/2024 Sex and Gender Information Value Date Recorded Sex Assigned at Not on file Legal Sex Male 1:16 PM EDT Gender Identity Not on file Sexual Orientation Not on file Last Filed Vital Signs Vital Sign Reading Time Taken Comments Blood Pressure 120/68 03/10/2025 11:03 AM EDT Pulse 84 03/10/2025 11:03 AM EDT Temperature 36.6 C (97.8 F) 03/10/2025 11:03 AM EDT Respiratory Rate 20 03/10/2025 11:03 AM EDT Oxygen Saturation 93% 11/26/2024 10:39 AM EST Inhaled Oxygen Concentration - - Weight 128 kg (283 lb) 03/10/2025 11:03 AM EDT Height 177.8 cm (5' 10 ) 03/10/2025 11:03 AM EDT Body Mass Index 40.61 03/10/2025 11:03 AM EDT Plan of Treatment Upcoming Encounters Date Type Department Care Team (Late st Contact Info) Description 08/01/2025 2:30 PM EDT Office Visit [facility] [address] [facility] [place] [address] López Alicea MD [address] [facility] [place] [address] Health Maintenance Due Date Last Done Comments DIABETIC FOOT EXAM 12/28/1971 URINE MICROALBUMIN-CREATININ E RATIO (uACR) 12/28/1971 Pneumococcal Vaccine 50+ (1 of 2 - PCV) 1980 COLOGUARD 2006 COLON CANCER SCREENING [address] SIG[address] COLONOGRAPHY 2006 FECAL OCCULT BLOOD TEST 2006 FIT Testing (1 year) 2006 ZOSTER VACCINE (1 of 2) 12/28/2011 DIABETIC EYE EXAM 03/18/2016 03/18/2015 ANNUAL WELLNESS VISIT 10/07/2023 10/07/2022 , 09/03/2021, 08/17/2020, Additional history exists COVID-19 Vaccine (5 - 2023-2 5 season) 2024 08/02/2022, 09/03/2021, 08/12/2021, Additional history exists HEMOGLOBIN A1C 10/30/2024 04/29/2024, 0805/2023, 06/02/2022, Additional history exists INFLUENZA VACCINE 07/02/2025 07/30/2024, , 07/25/2022, Additional history exists COLONOSCOPY 07/24/2025 07/24/2015, 05/2015, 10/02/2014 COLORECTAL CANCER SCREENING 07/24/2025 TDAP/TD VACCINES (3 - Td or Tdap) 10/17/2034 025, 10/25/2014 Hepatitis B Completed 12/21/2015, 04/02, 02/17/2015 HEPATITIS C SCREENING Completed 04/25/2025 , 04/25/2025, 02/24/2025, Additional history exists Procedures Procedure Name Priority Date/Time Associated Diagnosis Comments CBC AND DIFFERENTIAL Routine 03/10/2025 11:38 AM EDT Gastrointestinal hemorrhage associated with gastric ulcer Anemia, unspecified type AMMONIA Routine 03/10/2025 11:38 AM EDT 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 Hemoglobin 9.5(L) 13.0 - 17.7 g/dL [facility] Hematocrit 32.6(L) 37.5 - 51.0 % [facility] MCV 89 79 - 97 fL [facility] MCH 26.0(L) 26.6 - 33.0 pg [facility] MCHC 29.1(L) 31.5 - 35.7 g/dL [facility] RDW 15.9(H) 11.6 - 15.4 % [facility] Platelets 99(L) 150 - 450 x10E3/uL [facility] Comment: Actual platelet count may be somewhat higher than reported due to aggregation of platelets in this sample. Neutrophil Rel % 71 Not Estab. % [facility] Lymphocyte Rel % 19 Not Estab. % [facility] Monocyte Rel % 7 Not Estab. % [facility] Eosinophil Rel % 2 Not Estab. % [facility] Basophil Rel % 1 Not Estab. % [facility] Neutrophils Absolute 1.3(L) 1.4 - 7.0 x10E3/uL [facility] Lymphocytes Absolute 0.4(L) 0.7 - 3.1 x10E3/uL [facility] Monocytes Absolute 0.1 0.1 - 0.9 x10E3/uL [facility] Eosinophils Absolute 0.0 0.0 - 0.4 x10E3/uL [facility] Basophils Absolute 0.0 0.0 - 0.2 x10E3/uL [facility] Immature Granulocyte Rel % 0 Not Estab. % [facility] Immature Grans Absolute 0.0 0.0 - 0.1 x10E3/uL [facility] Hematology Comments: Note: [facility] Comment:Verified by microsco pic examination. Blood 03/10/2025 11:3 8 AM EDT 03/10/2025 Narrative [facility] ([facility]) - 03/11/2025 2:10 PM EDT Performed at: 01 - [facility] [id number] Research Geneticist: David Mcduffie PhD, Phone: [phone] Patient Fasting: N López Alicea MD LAB BLOOD ORDERABLES Final Resu lt [facility] ([facility]) [address] [place] [address], [facility] [address] [place] [address], [place] [phone] * Ammonia (03/10/2025 11:38 AM EDT) Ammonia 83 40 - 200 ug/dL [facility] Blood 03/10/2025 11:3 8 AM EDT 03/10/2025 Narrative [facility] ([facility]) - 03/11/2025 2:10 PM EDT Performed at: 01 - [address] [id number] Research Geneticist: David Mcduffie PhD, Phone: [phone] Patient Fasting: N López Alicea MD LAB BLOOD ORDERABLES Final Resu lt Performing Organization Address City/[facility]/ZIP Co de Phone Number [facility] (AMBULATORY) [address] [place] [address], [facility] [address] [place] [address], * (ABNORMAL) Comprehensive Metabolic Panel (03/10/2025 11:38 AM EDT) Glucose 103(H) 70 - 99 mg/dL [facility] BUN 17 8 - 27 mg/dL [facility] Creatinine 1.21 0.76 - 1.27 mg/dL [facility] EGFR Result 67 >59 mL/min/1.7 3 [facility] BUN/Creatinine Ratio 14 10 - 24 [facility] Sodium 142 134 - 144 mmol/L [facility] Potassium 3.2(L) 3.5 - 5.2 mmol/L [facility] Chloride 102 96 - 106 mmol/L [facility] Total CO2 26 20 - 29 mmol/L [facility] Calcium 8.5(L) 8.6 - 10.2 mg/dL [facility] Total Protein 6.3 6.0 - 8.5 g/dL [facility] Albumin 3.4(L) 3.9 - 4.9 g/dL [facility] Globulin 2.9 1.5 - 4.5 g/dL [facility] Total Bilirubin 0.5 0.0 - 1.2 mg/dL [facility] Alkaline Phosphatase 167(H) 44 - 121 IU/L [facility] AST (SGOT) 39 0 - 40 IU/L [facility] ALT (SGPT) 23 0 - 44 IU/L [facility] Blood 03/10/2025 11:3 8 AM EDT 03/10/2025 Narrative [facility] ([facility]) - 03/11/2025 2:10 PM EDT Performed at: [address] [place] [id number] Research Geneticist: David Mcduffie PhD, Phone: [phone] Patient Fasting: N us López Alicea MD LAB BLOOD ORDERABLES Final Resu lt [facility] ([facility]) [address] [place] [address], [facility] [address] [place] [address], * (ABNORMAL) Hemoglobin A1c (04/29/2024 12:45 PM EDT) [facility] Hemoglobin A1C 4.6(L) 4.8 - 5.6 % [facility] Comment: Prediabetes: 5.7 - 6.4 Diabetes: >6.4 Glycemic control for adults with diabetes: <7.0 Blood 04/29/2024 12:4 5 PM EDT 04/29/2024 Narrative [facility] (AMBULATORY) - 04/30/2024 8:18 AM EDT Performed at: [address] [id number] Research Geneticist: David Mcduffie PhD, Phone: [phone] Patient Fasting: Y us López Alicea MD LAB BLOOD ORDERABLES Final Resu lt [facility] ([facility]) [address] [place] [address], [place] [phone] [facility] [address] [place] [address], [place] [phone] from Last 3 Months or Most Recently Relevant to Health Maintenance Insurance MEDICAID [place] [employer] PPO Advance Directives Documents on File Type Date Recorded Patient Mineral Engineer Expl anation LIVING WILL - SCAN 03/04/2022 12:13 PM EFFE CTIVE OF 06/25/19 Care Teams National Expansion Recruiter Relationship Specialty Start Date End Date López Alicea MD [address] [place] [address] PCP - General 07/16/15
--- OUTSIDE RECORDS SUMMARY | 2025-05-29 10:40 | XMS_ITS | Encounter Summary ---
Author Organization Healthcare Address [address] [place] [address] Care Team Providers Care Flag Signalman Name Role Phone López Alicea MD Primary Care Provider [phone] Teresita Garcia LPN Unavailable Unavailabl e Slade Lennon Unavailable Teresita Garcia LPN Unavailable Unavailabl e Encounter Details Date Type Department Care Team (Late st Contact Info) Description 12/06/2024 Orders Only External Location [address] [place] [address] Provider, External Social History Tobacco Use Types Packs/Day Years Used Date Smoking Tobacco: Never Alcohol Use Standard Drinks/Week Comments No 0 (1 standard drink = 0.6 oz pur e alcohol) Sex and Gender Information Value Date Recorded Sex Assigned at Not on file Legal Sex Male 8:05 PM EDT Gender Identity Not on file Sexual Orientation Not on file documented as of this encounter Plan of Treatment Upcoming Encounters Date Type Department Care Team (Late st Contact Info) Description 06/03/2025 8:30 AM EDT Clinical Support [facility] [address] [place] [address] 06/03/2025 10:00 AM EDT Office Visit [facility] [address] [place] [address] Daniel Marques MD [address] [place] [address] documented as of this encounter Procedures Procedure Name Priority Date/Time Associated Diagnosis Comments MR NEURO OUTSIDE IMAGES 12/06/2024 2:48 PM EST documented in this encounter Results * MR NEURO OUTSIDE IMAGES (12/06/2024 2:48 PM EST) Anatomical Region Laterality Modality Magnetic Resonan ce 12/06/2024 2:48 PM EST us External Provider IMG MRI PROCEDURES Final Resul t documented in this encounter Visit Diagnoses Not on filedocumented in this encounter Care Teams Flag Signalman Relationship Specialty Start Date End Date López Alicea MD [address] [place] [address] PCP - General 02/24/25 Teresita Garcia LPN [facility] TCM Nurse 03/04/25 04/03/25 Slade Lennon PA [address] [place] [address] Referring Physician Gastroenterology 03/19/25 Teresita Garcia LPN [facility] TCM Nurse 04/28/25 05/28/25 documented as of this encounter
--- OUTSIDE RECORDS SUMMARY | 2025-05-29 10:40 | XMS_ITS | Encounter Summary ---
Author Organization [facility] Address [address] [place] [address] Care Team Providers Care Supervisor Wire Rope Fabrication Name Role Phone López Alicea MD Primary Care Provider [phone] Slade Lennon Unavailable Encounter Details Date Type Department Care Team (Late st Contact Info) Description 04/23/2025 Telephone [facility] [address] [place] [address] Monserrat Martins [place] [id number] Social History Tobacco Use Types Packs/Day Years [...] by your partner or ex-partner? No 02/27/2025 Hunger Vital Sign Answer Date Recorded Within [...] things needed for daily living? Yes 02/27/2025 Housing Stability Vital Sign Answer Aaron e Recorded In the last 12 months, was t here a time when you were not able to pay the mortgage or rent on time? No 02/27/2025 Number of Times Moved in the Last Year Not on fi le 02/27/2025 At any time in the past [address] [facility], were you homeless or living in a correction (including now)? No 02/27/2025 Utilities Answer Date [...] on file documented as of this encounter Miscellaneous Notes * Telephone Encounter - Monserrat Martisn - 04/23/2025 11:47 AM EDT Mr Hendrickson called - confirmed New Patient appointment scheduled for 04/25/2025 at 7:15am. Provided reminder of appointment date/time. Reminded to bring ID, insurance information, all medications or current medication list; reminded to bring all completed paperwork. Reminded to bring support person and to wear masks. Reminded that there is no fasting required for labs and to expect a long appointment. Reminded that if applicable to their insurance, there may be a copay due at the time of this appointment. Encouraged a call if they have additional questions or are unable to attend/ need to reschedule. documented in this encounter Plan of Treatment Upcoming Encounters Date Type Department Care Team (Late st Contact Info) Description 06/03/2025 8:30 AM EDT Clinical Support [facility] [place] [address] [place] [address] 06/03/2025 10:00 AM EDT Office Visit [facility] [place] [address] [place] [address] Daniel Marques MD [address] [place] [address] documented as of this encounter Goals Goal Patient Goal Type Associated Problems Recent Progress Patient-Stated? Author Autogenerat ed Goal Care Plan Autogenerated Problem No Andreia Grossman RN documented as of this encounter Visit Diagnoses Not on filedocumented in this encounter Additional Health Concerns Active Problems Noted Date Diagnosed Date Autogenerated Problem 02/26/2025 Assessment Noted Time A Body Mass Index follow-up plan has been documented for the patient 03/03/2025 4:15 PM EDT documented as of this encounter Care Teams Supervisor Wire Rope Fabrication Relationship Specialty Start Date End Date López Alicea MD [address] [place] [address] PCP - General 02/24/25 Slade Lennon PA [address] [place] [address] Referring Physician Gastroenterology 03/19/25 documented as of this encounter
--- OUTSIDE RECORDS SUMMARY | 2025-05-29 10:40 | XMS_ITS | Encounter Summary ---
Author Organization Healthcare Address [address] [place] [address] Care Team Providers Care Director Revenue Name Role Phone López Alicea MD Primary Care Provider [phone] Teresita Garcia LPN Unavailable Unavailabl e Slade Lennon Unavailable Teresita Garcia LPN Unavailable Unavailabl e Encounter Details Date Type Department Care Team (Late st Contact Info) Description 01/14/2025 Orders Only External Location [address] [place] [address] Provider, External Social History Tobacco Use Types [...] Description 06/03/2025 8:30 AM EDT Clinical Support [facility] [address] [place] [address] 06/03/2025 10:00 AM EDT Office Visit [facility] [address] [place] [address] Daniel Marques MD [address] [place] [address] documented as of this encounter Procedures Procedure Name Priority Date/Time Associated Diagnosis Comments CT ABDOMEN OUTSIDE IMAGES 01/14/2025 6:02 PM EDT documented in this encounter Results * CT ABDOMEN OUTSIDE IMAGES (01/14/2025 6:02 PM EDT) Anatomical Region Laterality Modality Computed Tomogra phy 01/14/2025 6:02 PM EDT External Provider IMG CT PROCEDURES Final Result documented in this encounter Visit Diagnoses Not on filedocumented in this encounter Care Teams Director Revenue Relationship Specialty Start Date End Date López Alicea MD [address] [place] [address] PCP - General 02/24/25 Teresita Garcia LPN [facility] TCM Nurse 03/04/25 04/03/25 Slade Lennon PA [address] [place] [address] Referring Physician Gastroenterology 03/19/25 Teresita Garcia LPN [facility] TCM Nurse 04/28/25 05/28/25 documented as of this encounter
--- OUTSIDE RECORDS SUMMARY | 2025-05-29 10:40 | XMS_ITS | Encounter Summary ---
Author Organization Healthcare Address [address] [place] [address] Care Team Providers Care Flatbed Truck Driver Name Role Phone López Alicea MD Primary Care Provider [phone] Slade Lennon Unavailable Encounter Details Date Type Department Care Team (Latest Contact Info) Description 04/25/2025 Travel Social History Tobacco Use Types Packs/Day Years [...] any time in the past 12 m [facility], were you homeless or living in [...] too much Several days 04/25/2025 7:21 AM EDDominick Wood Feeling tired or having yue le energy [...] EDT Alicia Woo 2. Non-Specific Active Suici uslly Thoughts (Past 1 Month) No 04/25/2025 11:00 AM EDT Alicia Woo 6. Suicidal Behavior (Lifetime) No 11:00 AM EDT Alicia Woo documented as of this encounter Plan of Treatment Upcoming Encounters Date Type Department Care Team (Late st Contact Info) Description 06/03/2025 8:30 AM EDT Clinical Support [facility] [place] [address] [place] [address] 06/03/2025 10:00 AM EDT Office Visit [facility] [place] [address] [place] [address] Daniel Marques MD [address] [place] [address] documented as of this encounter Goals Goal [...] documented as of this encounter Care Teams Flatbed Truck Driver Relationship Specialty Start Date End Date López Alicea MD [address] [facility] [place] [address] PCP - General 02/24/25 Slade Lennon PA [address] [place] [address] Referring Physician Gastroenterology 03/19/25 documented as of this encounter
--- OUTSIDE RECORDS SUMMARY | 2025-05-29 10:40 | XMS_ITS | Encounter Summary ---
Author Organization Healthcare Address [address] [place] [address] Care Team Providers Care Home Care Giver Name Role Phone López Alicea MD Primary Care Provider [phone] Slade Lennon Unavailable Teresita Garcia LPN Unavailable Unavailabl e Encounter Details Date Type Department Care Team (Late st Contact Info) Description 05/01/2025 Telephone [facility] [address] [place] [address] Sandra Soto, PharmD Social History Tobacco Use Types Packs/Day Years [...] any time in the past 12 m [facility], were you homeless or living in a fci (including now)? No 02/27/2025 Utilities Answer Date [...] Description 06/03/2025 8:30 AM EDT Clinical Support [facility] [address] [place] [address] 06/03/2025 10:00 AM EDT Office Visit [facility] [place] [address] [place] [address] Daniel Marques MD [address] [place] [address] documented as of this encounter Goals Goal Patient Goal Type Associated Problems Recent Progress Patient-Stated? Author Autogenerat ed Goal Care Plan Autogenerated Problem No Andreia Grossman, RN Autogenerat ed Goal Care Plan Autogenerated Problem No Angelina Lorenzo, RN documented as of this encounter Visit [...] documented as of this encounter Care Teams Home Care Giver Relationship Specialty Start Date End Date López Alicea MD [address] [place] [address] PCP - General 02/24/25 Slade Lennon PA [address] [place] [address] Referring Physician Gastroenterology 03/19/25 Teresita Garcia LPN [facility] TCM Nurse 04/28/25 05/28/25 documented as of this encounter
--- OUTSIDE RECORDS SUMMARY | 2025-05-29 10:40 | XMS_ITS | Encounter Summary ---
Author Organization Healthcare Address [address] [place] [address] Care Team Providers Care Rail Loader Name Role Phone López Alicea MD Primary Care Provider [phone] Slade Lennon Unavailable Teresita Garcia LPN Unavailable Unavailabl e Reason for Visit * Reason Comments TCM Call Encounter Details Date Type Department Care Team (Late st Contact Info) Description 04/28/2025 Patient Outreach [facility] [address], [address] [place] [address] Teresita Garcia LPN [facility] TCM Call Social History Tobacco Use Types Packs/Day Years [...] any time in the past 12 m [facility], were you homeless or living in a prison (including now)? No 02/27/2025 Utilities Answer Date [...] encounter Miscellaneous Notes * Progress Notes - Teresita Garcia LPN - 04/28/2025 10:05 AM EDT Admit Date: 04/25/2025 Discharge Date: 04/27/2025 Hospital Service: Hospital Medicine Discharge Diagnosis: GIB (gastrointestinal bleeding) 04/28/2025 TCM call # 1 Patient Reached: Yes Outcome: Called patient for a TCM nurse call. Unable to reach patient. VM left with a call back number provided. Patient returned TCM nurse call. Patient reports he is doing pretty good since discharge. Patient denies any abdominal pain, N/V, fever, SOA, CP, dizziness and lightheadedness. Patient reports receiving his medications at discharge and taking them as instructed. Patient reports he has a follow up appointment with his PCP on 05/12/2025. Patient denies any [facility] needs, reports he is self sufficient.Patient has no questions or concerns for this nurse at this time. Number provided for patient to call should he have any questions or concerns arise. Action: N/A Medication changes: per AVS Start taking levofloxacin (Levaquin) 500 mg Take 1 tablet by mouth daily for 5 days. ferrous sulfate 325 mg Take 1 tablet by mouth 3 times a day with meals for 60 days, THEN 1 tablet daily with breakfast. furosemide (Lasix) 20 mg Take 1 tablet by mouth daily. gabapentin (Neurontin) 400 mg Take 2 capsules by mouth 3 times a day pantoprazole (Protonix) 40 mg Take 1 tablet by mouth 2 times a day before meals spironolactone (Aldactone) 50 mg Take 1 tablet by mouth daily MARIA T appointment: Scheduled with PCP on 05/12/2025 Items to address at MARIA T: N/A documented in this encounter Plan of Treatment Upcoming Encounters Date Type Department Care Team (Late st Contact Info) Description 06/03/2025 8:30 AM EDT Clinical Support [facility] [place] [address] [place] [address] 06/03/2025 10:00 AM EDT Office Visit [facility] [place] [address] [place] [address] Daniel Marques MD [address] [place] [address] documented as of this encounter Goals Goal Patient Goal Type Associated Problems Recent Progress Patient-Stated? Author Autogenerat ed Goal Care Plan Autogenerated Problem No Andreia Grossman RN Autogenerat ed Goal Care Plan Autogenerated Problem No Bj, Angelina M, RN documented as of this encounter Visit [...] documented as of this encounter Care Teams Rail Loader Relationship Specialty Start Date End Date López Alicea MD [address] [place] [address] PCP - General 02/24/25 Slade Lennon PA [address] [place] [address] Referring Physician Gastroenterology 03/19/25 Teresita Garcia LPN [facility] TCM Nurse 04/28/25 05/28/25 documented as of this encounter
--- OUTSIDE RECORDS SUMMARY | 2025-05-29 10:40 | XMS_ITS | Encounter Summary ---
Author Organization Healthcare Address [address] [place] [address] Care Team Providers Care Back Roller Name Role Phone López Alicea MD Primary Care Provider [phone] Slade Lennon Unavailable Teresita Garcia LPN Unavailable Unavailabl e Encounter Details Date Type Department Care Team (Late st Contact Info) Description 05/07/2025 Orders Only [facility] [address] [place] [address] Sandra Soto, PharmD Social History Tobacco Use [...] any time in the past 12 m [facility], were you homeless or living in [...] Description 06/03/2025 8:30 AM EDT Clinical Support [facility] [address] [place] [address] 06/03/2025 10:00 AM EDT Office Visit [facility] [place] [address] [place] [address] Daniel Marques MD [address] [place] [address] documented as of this encounter Goals Goal [...] documented as of this encounter Care Teams Back Roller Relationship Specialty Start Date End Date López Alicea MD [address] [place] [address] PCP - General 02/24/25 Slade Lennon PA [facility] [place] [address] Referring Physician Gastroenterology 03/19/25 Teresita Garcia LPN [facility] TCM Nurse 04/28/25 05/28/25 documented as of this encounter
--- OUTSIDE RECORDS SUMMARY | 2025-05-29 10:40 | XMS_ITS | Encounter Summary ---
Author Organization Healthcare Address [address] [place] [address] Care Team Providers Care Editing Internship Name Role Phone López Alicea MD Primary Care Provider [phone] Teresita Garcia LPN Unavailable Unavailabl e Slade Lennon Unavailable Teresita Garcia LPN Unavailable Unavailabl e Encounter Details Date Type Department Care Team (Late st Contact Info) Description 12/20/2024 Orders Only External Location [address] [place] [address] Provider, External Social History Tobacco Use Types [...] Description 06/03/2025 8:30 AM EDT Clinical Support [facility] [address] [place] [address] 06/03/2025 10:00 AM EDT Office Visit [facility] [address] [place] [address] Daniel Marques MD [address] [place] [address] documented as of this encounter Procedures Procedure Name Priority Date/Time Associated Diagnosis Comments FL OUTSIDE IMAGES 12/20/2024 12:15 PM EDT documented in this encounter Results * FL OUTSIDE IMAGES (12/20/2024 12:15 PM EDT) Anatomical Region Laterality Modality Radiographic Lori ging 12/20/2024 12:1 5 PM EDT us External Provider IMG FLUOROSCOPY PROCEDURES Fin al Result documented in this encounter Visit Diagnoses Not on filedocumented in this encounter Care Teams Editing Internship Relationship Specialty Start Date End Date López Alicea MD [address] [place] [address] PCP - General 02/24/25 Teresita Garcia LPN [facility] TCM Nurse 03/04/25 04/03/25 Slade Lennon PA [address] [place] [address] Referring Physician Gastroenterology 03/19/25 Teresita Garcia LPN [facility] TCM Nurse 04/28/25 05/28/25 documented as of this encounter
--- OUTSIDE RECORDS SUMMARY | 2025-05-29 10:40 | XMS_ITS | Encounter Summary ---
Author Organization [facility] Address [address] [place] [address] Care Team Providers Care Concert Pianist Name Role Phone López Alicea MD Primary Care Provider [phone] Slade Lennon Unavailable Reason for Visit * Reason Comments Appointment Confirmation and rem inders Encounter Details Date Type Department Care Team (Late st Contact Info) Description 04/23/2025 Telephone [facility] [address] [place] [address] [place] [address] Appointment (Confirmation and reminders) Social History Tobacco Use Types Packs/Day Years [...] any time in the past 12 m [facility], were you homeless or living in a [place] [facility] [place] facility (including now)? No 02/27/2025 Utilities Answer Date [...] Miscellaneous Notes * Telephone Encounter - Monserrat Martins - 04/23/2025 9:19 AM EDT Called to confirm New Patient Pre-Liver Initial Clinic Evaluation scheduled for Monday at 7:15am. Called Mr Hendrickson - no answer, left voicemail message with contact information and request for return call. documented in this encounter Plan of Treatment Upcoming Encounters Date Type Department Care Team (Late st Contact Info) Description 06/03/2025 8:30 AM EDT Clinical Support [facility] [address] [place] [address] 06/03/2025 10:00 AM EDT Office Visit [facility] [address] [place] [address] Daniel Marques MD [address] [place] [address] documented as of this encounter [...] documented as of this encounter Care Teams Concert Pianist Relationship Specialty Start Date End Date López Alicea MD [address] [place] [address] PCP - General 02/24/25 Salde Lennon PA [address] [place] [address] Referring Physician Gastroenterology 03/19/25 documented as of this encounter
--- OUTSIDE RECORDS SUMMARY | 2025-05-29 10:40 | XMS_ITS | Clinical Summary ---
Author Organization [facility] Address [address] [place] [address] Care Team Providers Care City Editor Name Role Phone López Alicea MD Primary Care Provider [phone] Slade Lennon Unavailable Allergies No known active allergies Medications OxyCONTIN 40 MG 12 hr tablet Take 1 tablet by mouth 2 times a day. 5 Active allopurinol (Zyloprim) 300 MG tablet Take 1 tablet by mouth daily. Active buPROPion SR (Wellbutrin SR) 150 MG 12 hr tablet Take 1 tablet by mouth daily. Do not crush, chew, or split. Active busPIRone (Buspar) 10 MG tablet Take 2 tablets by mouth 2 times a day. Active colchicine (Colcrys) 0.6 MG tablet Take 1 tablet by mouth daily. Active hydrOXYzine HCl (Atarax) 50 MG tablet Take 1 tablet by mouth every 6 hours as needed for itching. Active OLANZapine (ZyPREXA) 5 MG tablet Take 1 tablet by mouth nightly. Active promethazine (Phenergan) 25 MG tablet Take 1/2 to 1 tablet ever 6 hours as needed for nausea or vomiting. Active sertraline (Zoloft) 100 MG tablet Take 2 tablets by mouth daily. Active SUMAtriptan (Imitrex) 100 MG tablet TAKE 1/2 TO 1 TABLET BY MOUTH AT ONSET OF HEADACHE, MAY REPEAT DOSE ONCE IN 2 HOURS IF NO RELIEF. Active tamsulosin (Flomax) 0.4 MG 24 hr capsule Take 1 capsule by mouth nightly. Active tiZANidine (Zanaflex) 4 MG tablet Take 1 tablet by mouth 2 times a day as needed for muscle spasms. Active gabapentin (Neurontin) 400 MG capsule Take 2 capsules by mouth 3 times a day. 180 capsule 1 5 06/26/20 Active pantoprazole (Protonix) 40 MG EC tablet Take 1 tablet by mouth 2 times a day before meals. Do not crush, chew, or split. 60 tablet 1 5 06/26/20 25 Active spironolactone (Aldactone) 50 MG tablet Take 1 tablet by mouth daily. 30 each 1 5 06/27/20 Active ferrous sulfate 325 (65 Fe) MG tablet Take 1 tablet by mouth 3 times a day with meals for 60 days, THEN 1 tablet daily with breakfast. 240 tablet 5 08/25/20 Active amLODIPine (Norvasc) 10 MG tablet Take 1 tablet by mouth daily. Active oxyCODONE-aceta minophen (Percocet) 10-325 MG tablet 1 tablet every 8 hours as needed for severe pain. Active furosemide (Lasix) 20 MG tablet Take 1 tablet by mouth daily. 30 tablet 1 5 06/26/20 Active levoFLOXacin (Levaquin) 500 MG tabletIndicatio ns:Gastrointest inal hemorrhage with melena Take 1 tablet by mouth daily for 5 days. 5 tablet 5 05/03/20 Active Problems Problem Noted Date Diagnosed Date Gastrointestinal hemorrhage with melena 04/26/20 Other specified anemias 04/25/2025 GIB (gastrointestinal bleeding) 04/25/2025 Other cirrhosis of liver 04/25/2025 Right foot pain 04/25/2025 Generalized edema 04/25/2025 Class III obesity with body mass index (BMI) of 40.0 or higher 02/27/2025 Tremor 02/25/2025 GI bleed 02/25/2025 Falls frequently 02/25/2025 Fall at home, initial encounter 02/24/2025 Gout Obesity Hypertension Depression Generalized anxiety disorder Overview (02/25/2025): Anxiety, generalized BPH (benign prostatic hyperplasia) Encounters Date Type Department Care Team Description 05/07/2025 Orders Only [facility] [address] [place] [phone] Sandra Soto, PharmD 05/01/2025 Telephone [facility] [address] [place] [phone] Sandra Soto, PharmD 04/28/2025 Patient Outreach [facility] [address], [address] [place] [address] Teresita Garcia, FITNESS LEADER TCM Call 04/25/2025 4:25 PM EDT Anesthesia Event [facility] [address] [place] [phone] Juan Pablo Mcknight MD 04/25/2025 11:16 AM EDT - 04/27/2025 5:17 PM EDT Hospital Encounter [facility] [address] [place] [phone] Allen Chen MD Ramani, Ashok A, MD Gastrointestinal hemorrhage with melena (Primary Dx) Discharge Disposition: Home or Self Care 04/25/2025 9:00 AM EDT Office Visit [facility] [place] [address] [phone] Daniel Marques MD Anemia due to other cause, not classified (Primary Dx) 04/25/2025 Travel 04/23/2025 Telephone [facility] [address] [phone] Monserrat Martins 04/23/2025 Telephone [facility] [address] [place] [address] [address] Monserrat Martins Appointment (Confirmation and reminders) 03/19/2025 Telephone [facility] [place] [phone] [phone] Monserrat Martins Appointment (scheduling) 03/19/2025 Telephone [facility] [place] [phone] [place] [address] [phone] Monserrat Martins Appointment (scheduling) 03/19/2025 Telephone [facility] [address] [place] [address] Monserrat Martins Referral - Liver Txp 03/13/2025 Patient Outreach POP[facility]ATION [facility] [address], [address] [place] [phone] Teresita Garcia, SANDIP Follow-up 03/05/2025 Patient Outreach [address] [place] [address] Teresita Garcia FITNESS LEADER TCM Call 03/04/2025 Patient Outreach POPULATION [address], [address] [place] [address] Teresita Garcia, FITNESS LEADER TCM Call 02/26/2025 4:19 PM EDT Anesthesia Event [facility] [address] [place] [phone] Reggie Villa MD Rock, Holly R, PA 02/26/2025 Travel 02/24/2025 5:00 PM EDT - 03/03/2025 6:13 PM EDT Hospital Encounter [facility] [address] [place] [phone] Lukas Moreira MD Wimberly, Katherine E, MD Tahir, Seema Rees MD Gastrointestinal hemorrhage associated with gastritis, unspecified gastritis type (Primary Dx); Fall, initial encounter Discharge Disposition: Home or Self Care from Last 3 Months Family History Medical History Relation Name Comments Hypertension Other 1 Stomach cancer Other 2 Relation Name Status Comments Other 1 Other 2 Social History Tobacco Use Types Packs/Day Years Used Date Smoking Tobacco: Never Smokeless Tobacco: Never Tobacco Cessation:Counseling Given: Not Answered Alcohol Use Standard Drinks/Week Comments No 0 [...] any time in the past 12 [facility], were you homeless or living in a [facility] (including now)? No 02/27/2025 Utilities Answer Date Recorded In the past 12 months has th e [employer], gas, oil, or water [employer] threatened to shut off services in your [...] Mass Index 40.33 04/25/2025 1:26 PM EDT Plan of Treatment Upcoming Encounters Date Type Department Care Team (Late st Contact Info) Description 06/03/2025 8:30 AM EDT Clinical Support [facility] [address] [place] [address] 06/03/2025 10:00 AM EDT Office Visit [facility] [place] [address] [place] [address] Daniel Marques MD [address] [place] [phone] Health Maintenance Due Date Last Done Comments [facility]-/Child/Adol SDOH Screenings 1961 Diabetes: Dental Exam 12/28/1971 [facility]-Hepatitis A Vaccines (1 of 2 - Risk 2-dose series) 1980 [facility]-Pneumococcal Vaccine: 50+ Years (1 of 2 - PCV) 1980 CT Colonography 2006 Colonoscopy 2006 FIT-DNA 2006 FIT 2006 FOBT 2006 Sigmoidoscopy 2006 [facility]-Colorectal Cancer Screening 2006 [facility]-Zoster Vaccines (1 of 2) 12/28/2011 [facility]-RSV Vaccine: 60+ Years or (1 - Risk 60-74 years 1-dose series) 2021 [facility]-Medicare Annual Wellness (AWV) 10/07/2023 10/07/2022, 09/03/2021, 08/17/2020 [id number] Vaccine ( season) 2024 08/02/2022, 09/03/2021, 02/08/2021 [facility]-Diabetes: Hemoglobin A1C 10/27/2024, 05/09/2023, 06/02/2022, Additional history exists [facility]-Influenza Vaccine (#1) 06/02/202507/30, 08/02/2022, 07/25/2022, Additional history exists [facility]- SDOH Screenings 08/30/2025 [facility]-Adult SDOH Screenings 08/30/2025 02/27/2025 [facility]-Depression Screening 04/25/2026 04/25/2025, 04/02 [facility]-DTaP,Tdap,and Td Vaccines (3 - Td or Tdap) 10/17/2034 10/17/2024, 10/25/2014 [facility]-HIV Screening Completed 02/24/2025, 09/30/2024 [facility]-Hepatitis C Screening Completed 2024, 02/24/2025, 03/03/2015 [facility]-Obesity Intervention Completed 025, 04/25/2025, 02/24/2025, Additional history exists HPV Vaccines Aged Out No longer eligi ble based on patient's age to complete this topic [facility]-HIB Vaccines Aged Out No longer e ligible based on patient's age to complete this topic [facility]-IPV Vaccines Aged Out No longer e ligible based on patient's age to complete this topic [facility]-Rotavirus Vaccines Aged Out No lo nger eligible based on patient's age to complete this topic Goals Goal Patient Goal Type Associated Problems Recent Progress Patient-Stated? 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 Procedure Name Priority Date/Time Associated Diagnosis Comments CBC WITH AUTO DIFFERENTIAL Routine 04/27/2025 6:09 AM EDT PHOSPHORUS, PLASMA Routine 04/27/2025 6: 08 AM EDT MAGNESIUM, PLASMA Routine 04/27/2025 6:0 8 AM EDT BASIC METABOLIC PANEL, PLASMA Routine 04/27/2025 6:08 AM EDT HEMOGLOBIN AND HEMATOCRIT, BLOOD Routine 04/26/2025 9:24 PM EDT ECG ADULT Routine 04/26/2025 4:53 PM EDT EXTRA TUBE LAVENDER TOP Routine 04/26/20 8:30 AM EDT EXTRA TUBE LIGHT GREEN TOP Routine 04/26/2025 8:30 AM EDT EXTRA TUBES Routine 04/26/2025 8:30 AM EDT HEPATIC FUNCTION PANEL STAT 8:30 AM EDT PHOSPHORUS, PLASMA STAT 04/26/2025 8: 30 AM EDT MAGNESIUM, PLASMA STAT 04/26/2025 8:3 0 AM EDT BASIC METABOLIC PANEL, PLASMA STAT 04/26/2025 8:30 AM EDT CBC WITH AUTO DIFFERENTIAL STAT 04/26/2025 8:30 AM EDT PROTHROMBIN TIME(PT) / INR Routine 04/25/2025 9:17 PM EDT MAGNESIUM, PLASMA Routine 04/25/2025 9:1 7 PM EDT PHOSPHORUS, PLASMA Routine 04/25/2025 9: 17 PM EDT COMPREHENSIVE METABOLIC PANEL, PLASMA Routine 04/25/2025 9:17 PM EDT CBC W/O DIFFERENTIAL STAT 04/25/2025 9:17 PM EDT TRANSFUSE RED BLOOD [...] BLOOD CELLS Routine 04/25/2025 1:26 PM EDT COMPREHENSIVE METABOLIC PANEL, PLASMA Routine 04/25/2025 12:45 PM EDT CBC W/O DIFFERENTIAL Routine 04/25/2025 12:45 PM EDT PREPARE RBC Routine 04/25/2025 12:28 PM EDT TYPE AND SCREEN Routine 04/25/2025 9:57 AM EDT Anemia due to other cause, not classified PAIN MANAGEMENT, QUANTITATIVE URINE DRUG TESTING Routine 04/25/2025 7:26 AM EDT End-stage liver disease (CMS/HCC) COMPREHENSIVE URINE DRUG SCREENING,QUALITATIVE ASSAY, >= 27 DRUG CLASSES Routine 04/25/2025 7:26 AM EDT End-stage liver disease (CMS/HCC) PAIN MANAGEMENT, QUANTITATIVE URINE DRUG TESTING Routine 04/25/2025 7:26 AM EDT End-stage liver disease (CMS/HCC) ALCOHOL, URINE Routine 04/25/2025 7:26 AM EDT End-stage liver disease (CMS/HCC) ABO/RH Routine 04/25/2025 7:06 AM EDT End-stage liver disease (CMS/HCC) ALPHA FETOPROTEIN, SERUM Routine 04/25/2025 7:06 AM EDT End-stage liver disease (CMS/HCC) CBC W/O DIFFERENTIAL Routine 04/25/2025 7:06 AM EDT End-stage liver disease (CMS/HCC) COMPREHENSIVE METABOLIC PANEL, PLASMA Routine 04/25/2025 7:06 AM EDT End-stage liver disease (CMS/HCC) PROTHROMBIN TIME(PT) / INR Routine 04/25/2025 7:06 AM EDT End-stage liver disease (CMS/HCC) NICOTINE AND COTININE METABOLITE, SERUM, QUANTITATIVE Routine 04/25/2025 7:06 AM EDT End-stage liver disease (CMS/HCC) HEPATITIS C ANTIBODY W/REFLEX TO HCV QUANT PCR Routine 04/25/2025 7:06 AM EDT End-stage liver disease (CMS/HCC) HEPATITIS B SURFACE ANTIGEN Routine 04/25/2025 7:06 AM EDT End-stage liver disease (CMS/HCC) HEPATITIS B SURFACE ANTIBODY, QUANTITATIVE Routine 04/25/2025 7:06 AM EDT End-stage liver disease (CMS/HCC) HEPATITIS A ANTIBODY IGG Routine 04/25/2025 7:06 AM EDT End-stage liver disease (CMS/HCC) BASIC METABOLIC PANEL, PLASMA Routine 03/03/2025 5:42 AM EDT CBC WITH AUTO DIFFERENTIAL Routine 03/03/2025 5:42 AM EDT HELICOBACTER PYLORI ANTIGEN Routine 03/02/2025 3:53 PM EDT BASIC METABOLIC PANEL, PLASMA Routine 03/02/2025 5:16 AM EDT CBC WITH AUTO DIFFERENTIAL Routine 03/02/2025 5:16 AM EDT POCT GLUCOSE METER UNSOLICITED RESULTS Routine 03/01/2025 8:23 AM EDT POCT GLUCOSE METER UNSOLICITED RESULTS Routine 03/01/2025 7:31 AM EDT BASIC METABOLIC PANEL, PLASMA Routine 03/01/2025 4:40 AM EDT CBC WITH AUTO DIFFERENTIAL Routine 03/01/2025 4:40 AM EDT HEMOGLOBIN AND HEMATOCRIT, BLOOD Timed 03/01/2025 4:40 AM EDT POCT GLUCOSE METER UNSOLICITED RESULTS Routine 02/28/2025 5:37 PM EDT POCT GLUCOSE METER UNSOLICITED RESULTS Routine 02/28/2025 12:31 PM EDT HEMOGLOBIN AND HEMATOCRIT, BLOOD Timed 02/28/2025 12:24 PM EDT POCT GLUCOSE METER UNSOLICITED RESULTS Routine 02/28/2025 9:07 AM EDT POCT GLUCOSE METER UNSOLICITED RESULTS Routine 02/28/2025 7:57 AM EDT HEMOGLOBIN AND HEMATOCRIT, BLOOD Timed 02/28/2025 5:25 AM EDT BASIC METABOLIC PANEL, PLASMA Routine 02/28/2025 5:25 AM EDT HEMOGLOBIN AND HEMATOCRIT, BLOOD Timed 02/28/2025 12:07 AM EDT CBC WITH AUTO DIFFERENTIAL Routine 02/28/2025 12:07 AM EDT POCT GLUCOSE METER UNSOLICITED RESULTS Routine 02/27/2025 7:50 PM EDT HEMOGLOBIN AND HEMATOCRIT, BLOOD Timed 02/27/2025 6:18 PM EDT POCT GLUCOSE METER UNSOLICITED RESULTS Routine 02/27/2025 4:42 PM EDT HEMOGLOBIN AND HEMATOCRIT, BLOOD Timed 02/27/2025 12:31 PM EDT POCT GLUCOSE METER UNSOLICITED RESULTS Routine 02/27/2025 11:58 AM EDT POCT GLUCOSE METER UNSOLICITED RESULTS Routine 02/27/2025 8:06 AM EDT HEMOGLOBIN AND HEMATOCRIT, BLOOD Timed 02/27/2025 5:58 AM EDT HEMOGLOBIN AND HEMATOCRIT, BLOOD Timed 02/27/2025 12:28 AM EDT BASIC METABOLIC PANEL, PLASMA Routine 02/27/2025 12:28 AM EDT CBC WITH AUTO DIFFERENTIAL Routine 02/27/2025 12:28 AM EDT POCT GLUCOSE METER UNSOLICITED RESULTS Routine 02/26/2025 8:06 PM EDT POCT GLUCOSE METER UNSOLICITED RESULTS Routine 02/26/2025 7:17 PM EDT HEMOGLOBIN AND HEMATOCRIT, BLOOD Timed 02/26/2025 6:44 PM EDT POCT GLUCOSE METER UNSOLICITED RESULTS Routine 02/26/2025 4:55 PM EDT EGD Routine 02/26/2025 4:45 PM EDT Gastrointestinal hemorrhage associated with gastritis, unspecified gastritis type POCT GLUCOSE METER UNSOLICITED RESULTS Routine 02/26/2025 3:04 PM EDT POCT GLUCOSE METER UNSOLICITED RESULTS Routine 02/26/2025 2:00 PM EDT POCT GLUCOSE METER UNSOLICITED RESULTS Routine 02/26/2025 11:49 AM EDT HEMOGLOBIN AND HEMATOCRIT, BLOOD Timed 02/26/2025 11:48 AM EDT POCT GLUCOSE METER UNSOLICITED RESULTS Routine 02/26/2025 7:59 AM EDT POCT GLUCOSE METER UNSOLICITED RESULTS Routine 02/26/2025 7:17 AM EDT POCT GLUCOSE METER UNSOLICITED RESULTS Routine 02/26/2025 6:22 AM EDT HEMOGLOBIN AND HEMATOCRIT, BLOOD Timed 02/26/2025 3:49 AM EDT BASIC METABOLIC PANEL, PLASMA Routine 02/26/2025 3:49 AM EDT CBC WITH AUTO DIFFERENTIAL Routine 02/26/2025 3:49 AM EDT ED HIV 1/2 ANTIBODY/ANTIGEN SCREEN WITH REFLEX TO HIV I/II DIFFERENTIATION STAT 02/24/2025 6:44 PM EDT from Last 3 Months or Most Recently Relevant to Health Maintenance Results * (ABNORMAL) CBC and Differential (04/27/2025 6:09 AM EDT) Only the most recent of8 resultswithin the time period is included. WBC Count 1.36(L) 3.70 - 10.30 10*3/uL LAB HEMATOLOGY METHOD 04/27/2025 6:24 AM EDT [facility] RBC Count 2.84(L) 4.60 - 6.10 10*6/uL LAB HEMATOLOGY METHOD 04/27/2025 6:24 AM EDT [facility] HGB 7.3(L) 13.7 - 17.5 g/dL LAB HEMATOLOGY METHOD 04/27/2025 6:24 AM EDT [facility] HCT 24.6(L) 40.0 - 51.0 % LAB HEMATOLOGY METHOD 04/27/2025 6:24 AM EDT [facility] Platelet Count 92(L) 155 - 369 10*3/uL LAB HEMATOLOGY METHOD 04/27/2025 6:24 AM EDT [facility] MCV 87 79 - 98 fL LAB HEMATOLOGY METHOD 04/27/2025 6:24 AM EDT [facility] MCH 25.7(L) 26.0 - 32.0 pg LAB HEMATOLOGY METHOD 04/27/2025 6:24 AM EDT [facility] MCHC 29.7(L) 30.7 - 35.5 g/dL LAB HEMATOLOGY METHOD 04/27/2025 6:24 AM EDT [facility] RDW 14.4 11.5 - 14.5 % LAB HEMATOLOGY METHOD 04/27/2025 6:24 AM EDT [facility] MPV 12.7(H) 8.8 - 12.5 fL LAB HEMATOLOGY METHOD 04/27/2025 6:24 AM EDT [facility] nRBC 0.0 <=0.0 per 100 WBCs LAB HEMATOLOGY METHOD 04/27/2025 6:24 AM EDT [facility] Differential Type Automated LAB HEMATOLOGY METHOD 04/27/2025 6:24 AM EDT [facility] Neutrophils % 57 % LAB HEMATOLOGY METHOD 04/27/2025 6:24 AM EDT [facility] Lymphocytes % 29 % LAB HEMATOLOGY METHOD 04/27/2025 6:24 AM EDT [facility] Monocytes % 10 % LAB HEMATOLOGY METHOD 04/27/2025 6:24 AM EDT [facility] Eosinophils % 4 % LAB HEMATOLOGY METHOD 04/27/2025 6:24 AM EDT [facility] Basophils % 0 % LAB HEMATOLOGY METHOD 04/27/2025 6:24 AM EDT [facility] Immature Granulocytes % 0 % LAB HEMATOLOGY METHOD 04/27/2025 6:24 AM EDT [facility] Neutrophils Absolute 0.78(LL) 1.60 - 6.10 10*3/uL LAB HEMATOLOGY METHOD 04/27/2025 6:24 AM EDT [facility] Lymphocytes Absolute 0.39(L) 1.20 - 3.90 10*3/uL LAB HEMATOLOGY METHOD 04/27/2025 6:24 AM EDT [facility] Monocytes Absolute 0.14(L) 0.30 - 0.90 10*3/uL LAB HEMATOLOGY METHOD 04/27/2025 6:24 AM EDT [facility] Eosinophils Absolute 0.05 0.00 - 0.50 10*3/uL LAB HEMATOLOGY METHOD 04/27/2025 6:24 AM EDT [facility] Basophils Absolute 0.00 0.00 - 0.10 10*3/uL LAB HEMATOLOGY METHOD 04/27/2025 6:24 AM EDT [facility] Immature Granulocytes Absolute 0.00 0.00 - 0.06 10*3/uL LAB HEMATOLOGY METHOD 04/27/2025 6:24 AM EDT [facility] Blood Venous blood specimen / Unknown Venipuncture / Unknown 04/27/2025 6:09 AM EDT 04/27/2025 6:14 AM EDT Narrative [facility] - 04/27/2025 6:24 AM EDT Therapeutic decision making should be based on absolute values, rather than percentages. us Ruslan Lucas MD LAB BLOOD ORDERABLES Final Res ult Performing Organization Address City/[facility]/ZIP Co de Phone Number [facility] [address] [place] [address] * Phosphorus, Plasma (04/27/2025 6:08 AM EDT) Only the most recent of3 resultswithin the time period is included. Phosphorus, Plasma 4.0 2.5 - 4.5 mg/dL 04/27/2025 6:45 AM EDT [facility] Blood Venous blood specimen / Unknown Venipuncture / Unknown 04/27/2025 6:08 AM EDT 04/27/2025 6:14 AM EDT us Ruslan Lucas MD LAB BLOOD ORDERABLES Final Res ult [facility] [address] [place] [address] * Magnesium, Plasma (04/27/2025 6:08 AM EDT) Only the most recent of3 resultswithin the time period is included. Magnesium, Plasma 1.9 1.9 - 2.4 mg/dL 04/27/2025 6:45 AM EDT [facility] Blood Venous blood specimen / Unknown Venipuncture / Unknown 04/27/2025 6:08 AM EDT 04/27/2025 6:14 AM EDT us Ruslan Lucas MD LAB BLOOD ORDERABLES Final Res ult [facility] [address] [place] [address] * (ABNORMAL) Basic Metabolic Panel, Plasma (04/27/2025 6:08 AM EDT) Only the most recent of8 resultswithin the time period is included. Glucose, Plasma 98 74 - 99 mg/dL 04/27/2025 6:45 AM EDT [facility] BUN, Plasma 20 8 - 23 mg/dL 04/27/2025 6:45 AM EDT [facility] Creatinine, Plasma 1.21(H) 0.70 - 1.20 mg/dL 04/27/2025 6:45 AM EDT [facility] BUN/Creatinine Ratio 17 04/27/2025 6:45 AM EDT [facility] Sodium, Plasma 140 136 - 145 mmol/L 04/27/2025 6:45 AM EDT [facility] Potassium, Plasma 3.7 3.6 - 4.9 mmol/L 04/27/2025 6:45 AM EDT [facility] Chloride, Plasma 102 97 - 107 mmol/L 04/27/2025 6:45 AM EDT [facility] CO2, Plasma 27 22 - 29 mmol/L 04/27/2025 6:45 AM EDT [facility] Anion Gap 11 6 - 16 mmol/L 04/27/2025 6:45 AM EDT [facility] Total Calcium, Plasma 7.9(L) 8.9 - 10.2 mg/dL 04/27/2025 6:45 AM EDT [facility] eGFRcr 67.3 mL/min/1.7 3m*2 04/27/2025 6:45 AM EDT [facility] Comment:Reported eGFRcr in m L/min/1.73m2 is based the CKD-EPI 2020 equation that does not use a race coefficient. Blood Venous blood specimen / Unknown Venipuncture / Unknown 04/27/2025 6:08 AM EDT 04/27/2025 6:14 AM EDT Ruslan Lucas MD LAB BLOOD ORDERABLES Final Res ult Performing Organization Address [facility] Co de Phone Number [facility] [address] [place] [address] * (ABNORMAL) Hemoglobin and Hematocrit, Blood (04/26/2025 9:24 PM EDT) Only the most recent of12 resultswithin the time period is included. HGB 7.2(L) 13.7 - 17.5 g/dL LAB HEMATOLOGY METHOD 04/26/2025 9:39 PM EDT [facility] HCT 25.0(L) 40.0 - 51.0 % LAB HEMATOLOGY METHOD 04/26/2025 9:39 PM EDT [facility] Blood Venous blood specimen / Unknown Venipuncture / Unknown 04/26/2025 9:24 PM EDT 04/26/2025 9:30 PM EDT Ruslan Lucas MD LAB BLOOD ORDERABLES Final Res ult Performing Organization Address City/[facility] Co de Phone Number [facility] [address] [place] [address] * ECG Adult (04/26/2025 4:53 PM EDT) EKG DIAGNOSIS CLASS Abnormal MUSE ECG Ventricular Rate 67 BPM MUSE ECG Atrial Rate 67 BPM MUSE ECG ME Interval 202 ms MUSE ECG QRSD Interval 102 ms MUSE ECG QT Interval 452 ms MUSE ECG QTC Interval 477 ms MUSE ECG P [place] 48 degrees MUSE ECG R [place] 6 degrees MUSE ECG T Wave [place] 50 degrees MUSE ECG Diagnosis Normal sinus rhythm MUSE ECG Diagnosis ST & T wave abnormlaities seen in anterior leads. MUSE ECG Diagnosis Abnormal ECG MUSE ECG Diagnosis MUSE ECG Diagnosis Confirmed by Torey Lopez ([id number]) on 04/27/2025 10:46:18 AM MUSE ECG 04/26/2025 4:53 PM EDT 04/27/2025 10:46 AM EDT us Ruslan Lucas MD ECG ORDERABLES Final Result Performing Organization Address City/[facility]/ZIP Co de Phone Number MUSE ECG * Lavender Top (04/26/2025 8:30 AM EDT) Extra Hold for add-ons 04/26/2025 11:02 AM EDT [facility] Comment:Auto resulted. Blood Venous blood specimen / Unknown 04/26/2025 8:30 AM EDT 04/26/2025 8:46 AM EDT us Ruslan Lucas MD LAB BLOOD ORDERABLES Final Res ult Performing Organization Address [facility] Co de Phone Number [facility] [address] [place] [address] * Light Green Top (04/26/2025 8:30 AM EDT) Extra Hold for add-ons 04/26/2025 11:02 AM EDT [facility] Comment:Auto resulted. Blood Venous blood specimen / Unknown 04/26/2025 8:30 AM EDT 04/26/2025 8:46 AM EDT us Ruslan Lucas MD LAB BLOOD ORDERABLES Final Res ult Performing Organization Address [facility] Co de Phone Number [facility] [address] [place] [address] * (ABNORMAL) Hepatic function panel (04/26/2025 8:30 AM EDT) Conjugated Bilirubin, Plasma 0.4(H) <=0.3 mg/dL 04/26/2025 9:15 AM EDT [facility] Alkaline Phosphatase, Plasma 139(H) 40 - 115 U/L 04/26/2025 9:15 AM EDT [facility] Total Bilirubin, Plasma 0.9 0.2 - 1.1 mg/dL 04/26/2025 9:15 AM EDT [facility] Albumin, Plasma 3.3(L) 3.5 - 5.2 g/dL 04/26/2025 9:15 AM EDT [facility] Total Protein 6.5 6.3 - 7.9 g/dL 04/26/2025 9:15 AM EDT [facility] ALT, Plasma 19 10 - 50 U/L 04/26/2025 9:15 AM EDT [facility] AST, Plasma 35 10 - 50 U/L 04/26/2025 9:15 AM EDT [facility] Blood Venous blood specimen / Unknown Venipuncture / Unknown 04/26/2025 8:30 AM EDT 04/26/2025 8:43 AM EDT us Ruslan Lucas MD LAB BLOOD ORDERABLES Final Res ult [facility] [address] [place] [address] * (ABNORMAL) PT/INR (04/25/2025 9:17 PM EDT) Only the most recent of2 resultswithin the time period is included. Prothrombin Time 15.1(H) 12.0 - 14.3 sec LAB COAGULATION METHOD 04/25/2025 9:44 PM EDT [facility] INR 1.2(H) 0.9 - 1.1 LAB COAGULATION METHOD 04/25/2025 9:44 PM EDT [facility] Blood Venous blood specimen / Unknown Venipuncture / Unknown 04/25/2025 9:17 PM EDT 04/25/2025 9:30 PM EDT Narrative [facility] - 04/25/2025 9:44 PM EDT OPTIMAL INR RANGES FOR PATIENT ON ORAL ANTICOAGULANT THERAPY Prevention of venous thromboembolism INR 2.0 to 3.0 In patients with heart disease: Atrial fibrillation INR 2.0 to 3.0 Valvular heart disease INR 2.0 to 3.0 Tissue heart valves INR 2.0 to 3.0 Mechanical prosthetic valves INR 2.5 to 3.5 Prevention of recurrent CO INR 2.5 to 3.5 us Allen Chen MD LAB BLOOD ORDERABLES Final Re sult [facility] [address] [place] [address] * (ABNORMAL) CBC W/O Differential (04/25/2025 9:17 PM EDT) Only the most recent of3 resultswithin the time period is included. WBC Count 2.68(L) 3.70 - 10.30 10*3/uL LAB HEMATOLOGY METHOD 04/25/2025 9:37 PM EDT [facility] RBC Count 2.91(L) 4.60 - 6.10 10*6/uL LAB HEMATOLOGY METHOD 04/25/2025 9:37 PM EDT [facility] HGB 7.6(L) 13.7 - 17.5 g/dL LAB HEMATOLOGY METHOD 04/25/2025 9:37 PM EDT [facility] HCT 25.3(L) 40.0 - 51.0 % LAB HEMATOLOGY METHOD 04/25/2025 9:37 PM EDT [facility] Platelet Count 74(L) 155 - 369 10*3/uL LAB HEMATOLOGY METHOD 04/25/2025 9:37 PM EDT [facility] MCV 87 79 - 98 fL LAB HEMATOLOGY METHOD 04/25/2025 9:37 PM EDT [facility] MCH 26.1 26.0 - 32.0 pg LAB HEMATOLOGY METHOD 04/25/2025 9:37 PM EDT [facility] MCHC 30.0(L) 30.7 - 35.5 g/dL LAB HEMATOLOGY METHOD 04/25/2025 9:37 PM EDT [facility] RDW 14.4 11.5 - 14.5 % LAB HEMATOLOGY METHOD 04/25/2025 9:37 PM EDT [facility] MPV 10.7 8.8 - 12.5 fL LAB HEMATOLOGY METHOD 04/25/2025 9:37 PM EDT [facility] nRBC 0.0 <=0.0 per 100 WBCs LAB HEMATOLOGY METHOD 04/25/2025 9:37 PM EDT [facility] Blood Venous blood specimen / Unknown Venipuncture / Unknown 04/25/2025 9:17 PM EDT 04/25/2025 9:30 PM EDT us Ruslan Lucas MD LAB BLOOD ORDERABLES Final Res ult [facility] [address] [place] [address] * (ABNORMAL) Comprehensive metabolic panel (04/25/2025 9:17 PM EDT) Only the most recent of3 resultswithin the time period is included. Glucose, Plasma 92 74 - 99 mg/dL 04/25/2025 10:01 PM EDT [facility] BUN, Plasma 14 8 - 23 mg/dL 04/25/2025 10:01 PM EDT [facility] Creatinine, Plasma 0.99 0.70 - 1.20 mg/dL 04/25/2025 10:01 PM EDT [facility] BUN/Creatinine Ratio 14 04/25/2025 10:01 PM EDT [facility] Sodium, Plasma 137 136 - 145 mmol/L 04/25/2025 10:01 PM EDT [facility] Potassium, Plasma 3.8 3.6 - 4.9 mmol/L 04/25/2025 10:01 PM EDT [facility] Chloride, Plasma 104 97 - 107 mmol/L 04/25/2025 10:01 PM EDT [facility] CO2, Plasma 25 22 - 29 mmol/L 04/25/2025 10:01 PM EDT [facility] Anion Gap 8 6 - 16 mmol/L 04/25/2025 10:01 PM EDT [facility] Total Calcium, Plasma 8.0(L) 8.9 - 10.2 mg/dL 04/25/2025 10:01 PM EDT [facility] Total Protein 5.7(L) 6.3 - 7.9 g/dL 04/25/2025 10:01 PM EDT [facility] Albumin, Plasma 3.1(L) 3.5 - 5.2 g/dL 04/25/2025 10:01 PM EDT [facility] AST, Plasma 33 10 - 50 U/L 04/25/2025 10:01 PM EDT [facility] ALT, Plasma 18 10 - 50 U/L 04/25/2025 10:01 PM EDT [facility] Alkaline Phosphatase, Plasma 132(H) 40 - 115 U/L 04/25/2025 10:01 PM EDT [facility] Total Bilirubin, Plasma 0.7 0.2 - 1.1 mg/dL 04/25/2025 10:01 PM EDT [facility] eGFRcr 85.6 mL/min/1.7 3m*2 04/25/2025 10:01 PM EDT [facility] Comment:Reported eGFRcr in m L/min/1.73m2 is based the CKD-EPI 2020 equation that does not use a race coefficient. Blood Venous blood specimen / Unknown Venipuncture / Unknown 04/25/2025 9:17 PM EDT 04/25/2025 9:30 PM EDT Result [facility] Allen Chen MD LAB BLOOD ORDERABLES Final Re sult [facility] [address] [place] [address] * Transfuse RBC (04/25/2025 8:07 PM EDT) Only the most recent of2 resultswithin the time period is included. Result [facility] Ruslan Lucas MD BLOOD TRANSFUSION ORDERABLES F inal Result * PERIPHERAL IV (SMARTFORM LINK) (04/25/2025 4:53 PM EDT) Narrative Ana Luisa Terrell RN - 04/25/2025 4:53 PM EDT Ana Luisa Terrell RN 04/25/2025 4:53 PM Insert peripheral IV Performed by: Ana Liusa Terrell, RN Authorized by: Allen Chen MD Hand [...] Transparent semipermeable dressing Education provided to: Patient Allen Chen MD IV THERAPY ORDERABLES Final R esult * EGD LUIS REYES; 04/25/2025 (04/25/2025 4:47 PM EDT) Anatomical Region [...] MD Proceduralist Max Wahl MD Fellow Koki Treviño RN Endo Nurse Juan Pablo Mcknight MD Anesthesiologist Graciela Andrade Endo Gear Grinder Preprocedure A history and physical has been [...] MD GI PROCEDURE ORDERABLES Final Result * ECHO, ADULT TRANSTHORACIC [...] mean PAP 21 mmHg NNAMDI ISCV PA ME(ACCEL) 22.0 mmHg NNAMDI ISCV PA acc slope [...] is no recent study available for direct [id number] comparison. Left Ventricle Based on the linear [...] is no recent study available for direct [id number] comparison. us Allen Chen MD CV ECHO [...] RBC: 1 Units (04/25/2025 1:49 PM EDT) Only the most recent of2 resultswithin the time period is included. Product Code [id number] BLOO D BANK Dispense Status Transfused BLOOD BANK Blood Expiration Date [id number] BLOOD BANK Unit Number [id number] B LOOD BANK Product Blood Type 5100 BLOOD BANK Blood Type O+ BLOOD BANK Crossmatch Compatible BLOOD BANK Other Ruslan Lucas MD BLOOD BANK PRODUCT ORDERABLES Final Result Performing Organization Address City/State/[facility] Co de Phone Number BLOOD BANK [address] [place] [address], * Type and Screen (04/25/2025 9:57 AM EDT) ABO/Rh O Positive 04/25/2025 9:57 AM EDT BLOOD BANK Antibody Screen Negative 04/25/2025 9:57 AM EDT BLOOD BANK Specimen Expiration 04/28/2025 23:59 04/25/2025 9:57 AM EDT BLOOD BANK Blood Venous blood specimen / Unknown Venipuncture / Unknown 04/25/2025 9:57 AM EDT 04/25/2025 10:14 AM EDT us Daniel Marques MD LAB BLOOD BANK TEST ORDERABLES Final Result BLOOD BANK [address] [place] [address], * (ABNORMAL) Pain Management, Quantitative Urine Drug Testing (04/25/2025 7:26 AM EDT) Alpha [place] Alprazolam <20 <20 ng/mL 04/27 7:18 PM EDT [facility] Alpha [place] Midazolam <20 <20 ng/mL 2024 7:18 PM EDT [facility] Alpha [place] Triazolam <20 <20 ng/mL 2024 7:18 PM EDT [facility] Alprazolam <10 <10 ng/mL 04/27/2025 7:18 PM EDT [facility] Aminoclonazepam <20 <20 ng/mL 7:18 PM EDT [facility] Amphetamine <50 <50 ng/mL 04/27/2025 7:18 PM EDT [facility] Benzoylecgonine <50 <50 ng/mL 7:18 PM EDT [facility] Buprenorphine <10 <10 ng/mL 04/27/2025 7:18 PM EDT [facility] Buprenorphine Glucuronide <50 <50 ng/mL 04/27/2025 7:18 PM EDT [facility] Butalbital <50 <50 ng/mL 04/27/2025 7:18 PM EDT [facility] 9 Carboxy THC <10 <10 ng/mL 04/27/2025 7:18 PM EDT [facility] 9 Carboxy THC Glucuronide <25 <25 ng/mL 04/27/2025 7:18 PM EDT [facility] Clonazepam <10 <10 ng/mL 04/27/2025 7:18 PM EDT [facility] Codeine <50 <50 ng/mL 04/27/2025 7:18 PM EDT [facility] Codeine Glucuronide <50 <50 ng/mL 04/27 7:18 PM EDT [facility] Cyclobenzaprine <50 <50 ng/mL 7:18 PM EDT [facility] Desmethyl Tramadol <50 <50 ng/mL 2024 7:18 PM EDT [facility] Diazepam <10 <10 ng/mL 04/27/2025 7:18 PM EDT [facility] EDDP - Methadone Metabolite <50 <50 ng/mL 04/27/2025 7:18 PM EDT [facility] Fentanyl <1 <1 ng/mL 04/27/2025 7:18 PM EDT [facility] Hydrocodone <50 <50 ng/mL 04/27/2025 7:18 PM EDT [facility] Hydromorphone <50 <50 ng/mL 04/27/2025 7:18 PM EDT [facility] Hydromorphone Glucuronide <50 <50 ng/mL 04/27/2025 7:18 PM EDT [facility] Lorazepam <20 <20 ng/mL 04/27/2025 7:18 PM EDT [facility] Lorazepam Glucuronide <50 <50 ng/mL 04/27/2025 7:18 PM EDT [facility] MDA <50 <50 ng/mL 04/27/2025 7:18 PM EDT [facility] MDMA <50 <50 ng/mL 04/27/2025 7:18 PM EDT [facility] Meperidine <50 <50 ng/mL 04/27/2025 7:18 PM EDT [facility] Methadone <50 <50 ng/mL 04/27/2025 7:18 PM EDT [facility] Methamphetamine <50 <50 ng/mL 7:18 PM EDT [facility] Methylphenidate <50 <50 ng/mL 7:18 PM EDT [facility] 6 Monoacetyl morphine <10 <10 ng/mL 04/27/2025 7:18 PM EDT [facility] Morphine <50 <50 ng/mL 04/27/2025 7:18 PM EDT [facility] Morphine Glucuronide <50 <50 ng/mL 04/02 7:18 PM EDT [facility] Naloxone <50 <50 ng/mL 04/27/2025 7:18 PM EDT [facility] Naloxone Glucuronide <50 <50 ng/mL 04/02 7:18 PM EDT [facility] Norbuprenorphine <10 <10 ng/mL 04/27/20 7:18 PM EDT [facility] Norbuprenorphine Glucuronide <50 <50 ng/mL 04/27/2025 7:18 PM EDT [facility] Nordiazepam <20 <20 ng/mL 04/27/2025 7:18 PM EDT [facility] Norfentanyl <2 <2 ng/mL 04/27/2025 7:18 PM EDT [facility] Normeperidine <50 <50 ng/mL 04/27/2025 7:18 PM EDT [facility] PCP Quant, Ur <50 <50 ng/mL 04/27/2025 7:18 PM EDT [facility] Phenobarbital <50 <50 ng/mL 04/27/2025 7:18 PM EDT [facility] Oxazepam <20 <20 ng/mL 04/27/2025 7:18 PM EDT [facility] Oxazepam Glucuronide <50 <50 ng/mL 04/02 7:18 PM EDT [facility] Oxycodone >1,000(H) <50 ng/mL 04/27/2025 7:18 PM EDT [facility] Oxymorphone <50 <50 ng/mL 04/27/2025 7:18 PM EDT [facility] Oxymorphone Glucuronide >1,000(H) <50 ng/mL 04/27/2025 7:18 PM EDT [facility] Secobarbital <50 <50 ng/mL 04/27/2025 7:18 PM EDT [facility] Tramadol <50 <50 ng/mL 04/27/2025 7:18 PM EDT [facility] Temazepam <20 <20 ng/mL 04/27/2025 7:18 PM EDT [facility] Temazepam Glucuronide <50 <50 ng/mL 04/27/2025 7:18 PM EDT [facility] Urine Urine specimen obtained by clean catch procedure / Unknown Non-blood Collection / Unknown 04/25/2025 7:26 AM EDT 04/25/2025 8:04 AM EDT Narrative [facility] - 04/27/2025 7:18 PM EDT This report is intended for use in clinical monitoring or management of patients. It is NOT intended for use in employment-related drug testing. For pain management, the absence of expected drug(s) and/or drug metabolite(s) may indicate non-compliance, inappropriate timing of specimen collection relative to drug administration, poor drug absorption, or limitations of testing. Interpretive questions should be directed to the laboratory. Test performed by LC-MS/MS at the [facility]. This test was developed and its performance characteristics determined by [facility]. It has not been cleared or approved by the FDA. The laboratory is regulated under CLIA as qualified to perform high-complexity testing. This test is used for clinical purposes. us Norman Rodney MD LAB URINE ORDERABLES Final Resul t [facility] [address] [place] [address] * Alcohol Urine (04/25/2025 7:26 AM EDT) Alcohol Urine Negative Negative 04/25/2025 11:54 AM EDT [facility] Urine Urine specimen obtained by clean catch procedure / Unknown Non-blood Collection / Unknown 04/25/2025 7:26 AM EDT 04/25/2025 8:04 AM EDT Narrative [facility] - 04/25/2025 11:54 AM EDT The correlation between urine and serum ethanol concentration is highly variable. Test performed by Gas Chromatography at the [facility]. This test was developed and its performance characteristics determined by [facility]. It has not been cleared or approved by the FDA.The laboratory is regulated under CLIA as qualified to perform high-complexity testing. This test is used for clinical purposes only. The correlation between urine and serum ethanol concentration is highly variable. Test performed by Gas Chromatography at the [facility]. This test was developed and its performance characteristics determined by [facility]. It has not been cleared or approved by the FDA.The laboratory is regulated under CLIA as qualified to perform high-complexity testing. This test is used for clinical purposes only. us Norman Rodney MD LAB URINE ORDERABLES Final Resul t [facility] [address] [place] [address] * (ABNORMAL) Comprehensive Urine Drug Screening, Qualitative Assay, >= 27 Drug Classes (:26 AM EDT) Acetaminophen Positive(A) Negative 04/25/2025 2:36 PM EDT [facility] Alprazolam Negative Negative 04/25/2025 2:36 PM EDT [facility] Amantadine Negative Negative 04/25/2025 2:36 PM EDT [facility] Amitriptyline Negative Negative 04/25/2025 2:36 PM EDT [facility] Amphetamine Negative Negative 04/25/2025 2:36 PM EDT [facility] Atenolol Negative Negative 04/25/2025 2:36 PM EDT [facility] Benzoylecgonine Negative Negative 2:36 PM EDT [facility] Bisoprolol Negative Negative 04/25/2025 2:36 PM EDT [facility] Bupropion Positive(A) Negative 04/25/2025 2:36 PM EDT [facility] Butalbital Negative Negative 04/25/2025 2:36 PM EDT [facility] Carbamazepine Negative Negative 04/25/2025 2:36 PM EDT [facility] Carisoprodol Negative Negative 04/25/2025 2:36 PM EDT [facility] Chlorpheniramine Negative Negative 04/25/20 2:36 PM EDT [facility] Citalopram Negative Negative 04/25/2025 2:36 PM EDT [facility] Clindamycin Negative Negative 04/25/2025 2:36 PM EDT [facility] Clonidine Negative Negative 04/25/2025 2:36 PM EDT [facility] Clopidogrel / Ticlopidine Negative Negative 04/25/2025 2:36 PM EDT [facility] Cocaethylene Negative Negative 04/25/2025 2:36 PM EDT [facility] Cocaine Negative Negative 04/25/2025 2:36 PM EDT [facility] Codeine Negative Negative 04/25/2025 2:36 PM EDT [facility] Cyclobenzaprine Negative Negative 2:36 PM EDT [facility] Desvenlafaxine Negative Negative 04/25/2025 2:36 PM EDT [facility] Dextromethorphan Negative Negative 04/25/20 2:36 PM EDT [facility] Diazepam Negative Negative 04/25/2025 2:36 PM EDT [facility] Diltiazem Negative Negative 04/25/2025 2:36 PM EDT [facility] Diphenhydramine Negative Negative 2:36 PM EDT [facility] Doxepine Negative Negative 04/25/2025 2:36 PM EDT [facility] Doxylamine Negative Negative 04/25/2025 2:36 PM EDT [facility] EDDP-Methadone metabolite Negative Negative 04/25/2025 2:36 PM EDT [facility] Fentanyl Negative Negative 04/25/2025 2:36 PM EDT [facility] Fluconazole Negative Negative 04/25/2025 2:36 PM EDT [facility] Fluoxetine Negative Negative 04/25/2025 2:36 PM EDT [facility] Guaifenesin Negative Negative 04/25/2025 2:36 PM EDT [facility] Haloperidol Negative Negative 04/25/2025 2:36 PM EDT [facility] Heroin/6-NIYA Negative Negative 04/25/2025 2:36 PM EDT [facility] Hydrocodone Negative Negative 04/25/2025 2:36 PM EDT [facility] Hydroxyzine / Cetirizine metabolite Positive(A) Negative 04/25/2025 2:36 PM EDT [facility] Ibuprofen Negative Negative 04/25/2025 2:36 PM EDT [facility] Imipramine Negative Negative 04/25/2025 2:36 PM EDT [facility] Ketamine Negative Negative 04/25/2025 2:36 PM EDT [facility] Labetolol Negative Negative 04/25/2025 2:36 PM EDT [facility] Lamotrigine Negative Negative 04/25/2025 2:36 PM EDT [facility] Levetiracetam Negative Negative 04/25/2025 2:36 PM EDT [facility] Lidocaine Negative Negative 04/25/2025 2:36 PM EDT [facility] MDA Negative Negative 04/25/2025 2:36 PM EDT [facility] MDMA Negative Negative 04/25/2025 2:36 PM EDT [facility] Memantine Negative Negative 04/25/2025 2:36 PM EDT [facility] Meperidine Negative Negative 04/25/2025 2:36 PM EDT [facility] Meprobamate Negative Negative 04/25/2025 2:36 PM EDT [facility] Metaxalone Negative Negative 04/25/2025 2:36 PM EDT [facility] Methamphetamine Negative Negative 2:36 PM EDT [facility] Methocarbamol Negative Negative 04/25/2025 2:36 PM EDT [facility] Methylecgonine Negative Negative 04/25/2025 2:36 PM EDT [facility] Metoclopramide Negative Negative 04/25/2025 2:36 PM EDT [facility] Metoprolol Negative Negative 04/25/2025 2:36 PM EDT [facility] Metronidazole Negative Negative 04/25/2025 2:36 PM EDT [facility] Midazolam Negative Negative 04/25/2025 2:36 PM EDT [facility] Midazolam Metabolite Negative Negative 04/25/2025 2:36 PM EDT [facility] Mirtazapine Negative Negative 04/25/2025 2:36 PM EDT [facility] Misc Test Result Positive(A) Negative 025 2:36 PM EDT [facility] Comment: Positive: Gabapentin Positive: Olanzapine Naproxen Negative Negative 04/25/2025 2:36 PM EDT [facility] Nefazodone Negative Negative 04/25/2025 2:36 PM EDT [facility] Norfentanyl Negative Negative 04/25/2025 2:36 PM EDT [facility] Nortriptyline Negative Negative 04/25/2025 2:36 PM EDT [facility] Ordanstron Negative Negative 04/25/2025 2:36 PM EDT [facility] Oxcarbazepine Negative Negative 04/25/2025 2:36 PM EDT [facility] Oxycodone Positive(A) Negative 04/25/2025 2:36 PM EDT [facility] Paroxethine Negative Negative 04/25/2025 2:36 PM EDT [facility] Phenobarbital Negative Negative 04/25/2025 2:36 PM EDT [facility] Phentermine Negative Negative 04/25/2025 2:36 PM EDT [facility] Phenytoin Negative Negative 04/25/2025 2:36 PM EDT [facility] Primidone Negative Negative 04/25/2025 2:36 PM EDT [facility] Promethazine Positive(A) Negative 04/25/2025 2:36 PM EDT [facility] Propofol Negative Negative 04/25/2025 2:36 PM EDT [facility] Propranolol Negative Negative 04/25/2025 2:36 PM EDT [facility] Quetiapine Negative Negative 04/25/2025 2:36 PM EDT [facility] Quinine Negative Negative 04/25/2025 2:36 PM EDT [facility] Rantidine Negative Negative 04/25/2025 2:36 PM EDT [facility] Sertraline Positive(A) Negative 04/25/2025 2:36 PM EDT [facility] Spironolactone Negative Negative 04/25/2025 2:36 PM EDT [facility] Tizanidine Negative Negative 04/25/2025 2:36 PM EDT [facility] Topiramate Negative Negative 04/25/2025 2:36 PM EDT [facility] Tramadol Negative Negative 04/25/2025 2:36 PM EDT [facility] Trazadone/ Trazadone metabolite Negative Negative 04/25/2025 2:36 PM EDT [facility] Trimethoprim Negative Negative 04/25/2025 2:36 PM EDT [facility] Valproic Acid Negative Negative 04/25/2025 2:36 PM EDT [facility] Venlafaxine Negative Negative 04/25/2025 2:36 PM EDT [facility] Verapamil Negative Negative 04/25/2025 2:36 PM EDT [facility] Zolpidem Negative Negative 04/25/2025 2:36 PM EDT [facility] Xylazine Negative Negative 04/25/2025 2:36 PM EDT [facility] Urine Urine specimen obtained by clean catch procedure / Unknown Non-blood Collection / Unknown 04/25/2025 7:26 AM EDT 04/25/2025 8:04 AM EDT Norman Rodney MD LAB URINE ORDERABLES Final Resul t Performing Organization Address City/[facility] [place] [address] * HEPATITIS B SURFACE ANTIBODY, QUANTITATIVE (04/25/2025 7:06 AM EDT) Hepatitis B Surface Antibody, Quantitative <8.00 NonReactiv e: <8, Grayzone: 8 - <12, Reactive: >= 12 mIU/mL 04/25/2025 8:56 AM EDT [facility] Comment: Nonreactive. Individual is considered not immune to HBV infection. Blood Venous blood specimen / Unknown Venipuncture / Unknown 04/25/2025 7:06 AM EDT 04/25/2025 7:21 AM EDT Norman Rodney MD LAB BLOOD ORDERABLES Final Resul t Performing Organization Address [facility]/ZIP Co de Phone Number [facility] [address] [place] [address] * Alpha fetoprotein, serum (04/25/2025 7:06 AM EDT) Alpha Fetoprotein, Serum 3.7 <10.0 ng/mL 04/25/2025 8:01 AM EDT [facility] Blood Venous blood specimen / Unknown Venipuncture / Unknown 04/25/2025 7:06 AM EDT 04/25/2025 7:22 AM EDT Narrative [facility] - 04/25/2025 8:01 AM EDT Performed by Luana electrochemiluminescent immunoassay which is traceable to the 1st AFP IRP WHO Reference standard 72/255. Results obtained with different test methods or kits cannot be used interchangeably. us Norman Rodney MD LAB BLOOD ORDERABLES Final Resul t Performing Organization Address City/[facility] [place] [address] * Hepatitis A Antibody IgG (04/25/2025 7:06 AM EDT) Hepatitis A Antibody IgG Negative Negative 04/25/2025 8:56 AM EDT [facility] Blood Venous blood specimen / Unknown Venipuncture / Unknown 04/25/2025 7:06 AM EDT 04/25/2025 7:21 AM EDT us Norman Rodney MD LAB BLOOD ORDERABLES Final Resul t Performing Organization Address City/[facility]/ZIP Co de Phone Number [facility] [address] [place] [address] * Hepatitis C Antibody (04/25/2025 7:06 AM EDT) Hepatitis C Antibody Negative Negative 04/25/2025 8:02 AM EDT [facility] Blood Venous blood specimen / Unknown Venipuncture / Unknown 04/25/2025 7:06 AM EDT 04/25/2025 7:21 AM EDT us Norman Rodney MD LAB BLOOD ORDERABLES Final Resul t Performing Organization Address City/[facility]/ZIP Co de Phone Number [facility] [address] [place] [address] * Nicotine Cotinine Metabolite (04/25/2025 7:06 AM EDT) NICOTINE <5 <5 ng/mL 04/26/2025 3:1 6 PM EDT [facility] Cotinine <5 <5 ng/mL 04/26/2025 3:1 6 PM EDT [facility] Blood Venous blood specimen / Unknown Venipuncture / Unknown 04/25/2025 7:06 AM EDT 04/25/2025 7:19 AM EDT Narrative [facility] - 04/26/2025 3:16 PM EDT Testing performed by LC-MS/MS at the [facility]oxicology [facility]. This test was developed and its performance characteristics determined by [facility]. This assay has not been cleared by the FDA. The laboratory is regulated under CLIA as qualified to perform high-complexity testing. This test is used for clinical purposes. Norman Rodney MD LAB BLOOD ORDERABLES Final Resul t [facility] [address] [place] [address] * ABO/Rh (04/25/2025 7:06 AM EDT) ABO/Rh O Positive 04/25/2025 7:01 AM EDT BLOOD BANK Blood Venous blood specimen / Unknown Venipuncture / Unknown 04/25/2025 7:06 AM EDT 04/25/2025 7:22 AM EDT Norman Rodney MD LAB BLOOD BANK TEST ORDERABLES F inal Result BLOOD BANK [address] [place] [address], * Hepatitis B Surface Antigen (04/25/2025 7:06 AM EDT) Hepatitis B Surf Antigen Negative Negative 04/25/2025 8:56 AM EDT [facility] Blood Venous blood specimen / Unknown Venipuncture / Unknown 04/25/2025 7:06 AM EDT 04/25/2025 7:21 AM EDT Norman Rodney MD LAB BLOOD ORDERABLES Final Resul t Performing Organization Address City/[facility]/ZIP Co de Phone Number [facility] [address] [place] [address] * Helicobacter pylori Antigen (03/02/2025 3:53 PM EDT) [facility] Helicobacter pylori Antigen Result Negative Negative 03/03/2025 8:22 AM EDT [facility] Stool Rectum structure / Unknown Non-blood Collection / Unknown 03/02/2025 3:53 PM EDT 03/02/2025 4:32 PM EDT us Seema Quintanilla MD LAB MICROBIOLOGY - GENERAL O RDERABLES Final Result Performing Organization Address City/[facility]/ZIP Co de Phone Number [facility] [address] [place] [address] * POCT glucose meter (03/01/2025 8:23 AM EDT) Only the most recent of19 resultswithin the time period is included. [facility] POCT Glucose 92 74 - 99 mg/dL 03/01/2025 8:25 AM EDT [facility] Comment:Accuracy of a glucos e result obtained from a capillary whole blood specimen relies upon adequate, non-compromised capillary blood flow. If the capillary glucose result is not consistent with the patient's clinical signs and symptoms, glucose testing should be repeated with either an arterial or venous sample on the glucometer or sent to the main labortory for testing. Comment 03/01/2025 8:25 AM EDT [facility] Health Science Instructor ID Sandra Parada 03/01/2025 8:25 AM EDT [facility] Device ID [id number] 03/01/2025 8:25 AM EDT [facility] Specimen Type POC Capillary 03/01/2025 8:25 AM EDT [facility] Blood Capillary blood specimen / Unknown 03/01/2025 8:23 AM EDT 03/01/2025 8:25 AM EDT us Seema Quintanilla MD LAB POINT OF CARE TE ST DOCKED DEVICE UNSOLICITED RESULTS Final Result [facility] [address] [place] [address] * EGD LORIN GOLD; 02/26/2025 (02/26/2025 4:45 PM EDT) Anatomical Region Laterality Modality Endoscopy Narrative 02/26/2025 7:33 PM EDT Table formatting from the original result was not included. 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 Multiple fundic gland polyps in the stomach The 1st part of the duodenum and 2nd part of the duodenum appeared normal. Post Procedure Diagnosis None Recommendations Other - Return to medical floor. - Continue with PPI daily - Continue to monitor Hgb and transfuse as needed to keep Hgb>7. - Check iron and low threshold for iron infusion while inpatient. Patient received pRBCs so iron studies might not be reliable. - We recommend to avoid NSAIDs. - We recommend to send for stool H. Pylori antigen. - Discussed results with patient. Indication Gastrointestinal hemorrhage associated with gastritis, unspecified gastritis type Medications See anesthesia record for anesthesia administered medications. Staff Staff Role Christin Dave MD Other - Other (see comments) Reggie Villa MD Anesthesiologist Zeinab Lebron CRNA CRNA Keats, Jennifer L Endo Nurse Lorin Gold MD Proceduralist López Gillette RN Endo Nurse Loida Goodwin Endo Gear Grinder Preprocedure A history and physical has been [...] pressure, heart rate, level of consciousness, oxygen and respirations were monitored throughout the procedure. The scope was introduced through the mouth and advanced to the second part of the duodenum. Retroflexion was performed in the cardia. The patient experienced no blood loss. The procedure was not difficult. The patient tolerated the procedure well. There were no apparent adverse events. Attestation I personally performed the entire procedure Specimens No specimens were documented in this log. 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 Multiple fundic gland polyps measuring smaller than 5 mm in the stomach The 1st part of the duodenum and 2nd part of the duodenum appeared normal. Seema Quintanilla MD GI PROCEDURE ORDERABLES Ariana l Result * ED HIV 1/2 Antibody/Antigen Screen w/Reflex to HIV 1/2 Differentiation (02/24/2025 6:44 PM EDT) HIV 1 & 2 Antibody/Antigen Screen Non Reactive Non Reactive 02/24/2025 7:37 PM EDT [facility] Comment:Screening for HIV 1 & 2 antibodies, and P24 antigen is NONREACTIVE. No confirmatory testing is required. Blood Venous blood specimen / Unknown Venipuncture / Unknown 02/24/2025 6:44 PM EDT 02/24/2025 6:56 PM EDT Lukas Moreira MD LAB BLOOD ORDERABLES Final Res ult [facility] [address] [place] [address] from Last 3 Months or Most Recently Relevant to Health Maintenance Additional Health Concerns Active Problems Noted Date Diagnosed Date Autogenerated Problem 02/26/2025 Autogenerated Problem 04/25/2025 Insurance [place] Member Subscriber Plan / Payer (Ef fective 2025-Present) Name:EmekaChema Relation to Subscriber:Self Name:Chema Hendrickson Payer ID:Not on file Group ID:Not on file Type:Medicaid Address: [address] [id number] [employer] [place] Member Subscriber Plan / Payer (Ef fective 2025-Present) Name:Emeka Chema Leigh Relation to Subscriber:Self Name:EmekaChema Payer ID:Not on file Group ID:Not on file Type:Medicaid Address: [address] [id number] [employer] Advance Directives * Full Code (Latest Code Status on File) Date Activated Date Inactivated Comments 04/25/2025 12:27 PM 04/27/2025 7:23 PM Question Answer Comments I have reviewed the capacity from the link above and, if needed, have updated to appropriate status: Yes * Full Code Date Activated Date Inactivated Comments 02/24/2025 8:54 PM 03/03/2025 8:18 PM Question Answer Comments I have reviewed the capacity from the link above and, if needed, have updated to appropriate status: Yes Care Teams City Editor Relationship Specialty Start Date End Date López Alicea MD [address] [place] [address] PCP - General 02/24/25 Slade Lennon PA [address] [place] [address] Referring Physician Gastroenterology 03/19/25
--- OUTSIDE RECORDS SUMMARY | 2025-05-29 10:40 | XMS_ITS | Encounter Summary ---
Author Organization Healthcare Address [address] [place] [address] Care Team Providers Care Transition Of Care Specialist Name Role Phone López Alicea MD Primary Care Provider [phone] Teresita Garcia LPN Unavailable Unavailabl e Slade Lennon Unavailable Teresita Garcia LPN Unavailable Unavailabl e Encounter Details Date Type Department Care Team (Late st Contact Info) Description 11/22/2024 Orders Only External Location [address] [place] [address] Provider, External Social History Tobacco Use Types [...] Description 06/03/2025 8:30 AM EDT Clinical Support [facility] [address] [place] [address] 06/03/2025 10:00 AM EDT Office Visit [facility] [address] [place] [address] Daniel Marques MD [address] [place] [address] documented as of this encounter Procedures Procedure Name Priority Date/Time Associated Diagnosis Comments CT THORACIC OUTSIDE IMAGES 11/22/2024 4:54 AM EST documented in this encounter Results * CT THORACIC OUTSIDE IMAGES (11/22/2024 4:54 AM EST) Anatomical Region Laterality Modality Computed Tomogra phy 11/22/2024 4:54 AM EST us External Provider IMG CT PROCEDURES Final Result documented in this encounter Visit Diagnoses Not on filedocumented in this encounter Care Teams Transition Of Care Specialist Relationship Specialty Start Date End Date López Alicea MD [address] [place] [address] PCP - General 02/24/25 Teresita Garcia LPN [facility] TCM Nurse 03/04/25 04/03/25 Slade Lennon PA [address] [place] [address] Referring Physician Gastroenterology 03/19/25 Teresita Garcia LPN [facility] 04/28/25 05/28/25 documented as of this encounter
--- OUTSIDE RECORDS SUMMARY | 2025-05-29 10:41 | XMS_ITS | Encounter Summary ---
Author Organization Healthcare Address [address] [place] [address] Care Team Providers Care Traveling Sales Executive Name Role Phone López Alicea MD Primary Care Provider [phone] Teresita Garcia LPN Unavailable Unavailabl e Slade Lennon Unavailable Teresita Garcia LPN Unavailable Unavailabl e Encounter Details Date Type Department Care Team (Late st Contact Info) Description 10/17/2024 Orders Only External Location [address] [place] [address] Provider, External Social History Tobacco Use Types [...] Description 06/03/2025 8:30 AM EDT Clinical Support [facility] [address] [place] [address] 06/03/2025 10:00 AM EDT Office Visit [facility] [address] [place] [address] Daniel Marques MD [address] [place] [address] documented as of this encounter Procedures Procedure Name Priority Date/Time Associated Diagnosis Comments CT NEURO OUTSIDE IMAGES 10/17/2024 9:05 PM EST documented in this encounter Results * CT NEURO OUTSIDE IMAGES (10/17/2024 9:05 PM EST) Anatomical Region Laterality Modality Computed Tomogra phy 10/17/2024 9:05 PM EST us External Provider IMG CT PROCEDURES Final Result documented in this encounter Visit Diagnoses Not on filedocumented in this encounter Care Teams Traveling Sales Executive Relationship Specialty Start Date End Date López Alicea MD [address] [place] [address] PCP - General 02/24/25 [facility]resita [facility] 03/04/25 04/03/25 Slade Lennon PA [address] [place] [address] Referring Physician Gastroenterology 03/19/25 Teresita Garcia LPN [facility] Nurse 04/28/25 05/28/25 documented as of this encounter
--- OUTSIDE RECORDS SUMMARY | 2025-05-29 10:41 | XMS_ITS | Encounter Summary ---
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 [facility] [place] [address] López Alicea MD [address] [place], [place] [id number] documented as of this encounter Visit Diagnoses Not on filedocumented in this encounter Care Teams Development Vice President Relationship Specialty Start Date End Date López Alicea MD [address] [place], [place] [phone] PCP - General 07/16/15 documented as of this encounter
--- OUTSIDE RECORDS SUMMARY | 2025-05-29 10:41 | XMS_ITS | Encounter Summary ---
Author Organization [facility] Address [address] [place] [id number] Care Team Providers Care Molder Setter Name Role Phone López Alicea MD Primary Care Provider [phone] Reason for Visit * Reason Comments Med Refill Encounter Details Date Type Department Care Team (Late Contact Info) Description 05/07/2025 Refill [facility] [address] [place] [address] López Alicea MD [address] [place] [address] Nausea Social History Tobacco Use Types Packs/Day Years [...] Encounters Date Type Department Care Team (Late Contact Info) Description 08/01/2025 2:30 PM EDT Office Visit [facility] [address] [place] [address] López Alicea MD [address] [place] [address] documented as of this encounter Visit Diagnoses Diagnosis Nausea Nausea alone documented in this encounter Additional Health Concerns Assessment Noted Time PHQ-2 Depression Total Score: 1 11/09/19 24 11:34 AM EST documented as of this encounter Care Teams Molder Setter Relationship Specialty Start Date End Date López Alicea MD [address] [place] [address] PCP - General 07/16/15 documented as of this encounter
--- OUTSIDE RECORDS SUMMARY | 2025-05-29 10:41 | XMS_ITS | Encounter Summary ---
Author Organization Healthcare Address [address] [place] [address] Care Team Providers Care Pin Drafter Operator Name Role Phone López Alicea MD Primary Care Provider [phone] Teresita Garcia LPN Unavailable Unavailabl e Slade Lennon Unavailable Teresita Garcia LPN Unavailable Unavailabl e Encounter Details Date Type Department Care Team (Late st Contact Info) Description 09/29/2024 Orders Only External Location [address] [place] [address] Provider, External Social History Tobacco Use Types [...] Description 06/03/2025 8:30 AM EDT Clinical Support [facility] [address] [place] [address] 06/03/2025 10:00 AM EDT Office Visit [facility] [address] [place] [address] Daniel Marques MD [address] [place] [address] documented as of this encounter Procedures Procedure Name Priority Date/Time Associated Diagnosis Comments CT MSK OUTSIDE IMAGES 09/29/2024 9:54 PM EST documented in this encounter Results * CT MSK OUTSIDE IMAGES (09/29/2024 9:54 PM EST) Anatomical Region Laterality Modality Computed Tomogra phy 09/29/2024 9:54 PM EST External Provider IMG CT PROCEDURES Final Result documented in this encounter Visit Diagnoses Not on filedocumented in this encounter Care Teams Pin Drafter Operator Relationship Specialty Start Date End Date López Alicea MD [address] [place] [address] PCP - General 02/24/25 Teresita Garcia LPN [facility] TCM Nurse 03/04/25 04/03/25 Slade Lennon PA [address] [place] [address] Referring Physician Gastroenterology 03/19/25 Teresita Garcia LPN [facility] TCM Nurse 04/28/25 05/28/25 documented as of this encounter
--- OUTSIDE RECORDS SUMMARY | 2025-05-29 10:41 | XMS_ITS | Encounter Summary ---
Author Organization Healthcare Address [address] [place] [address] Care Team Providers Care Audiology Assistant Name Role Phone López Alicea MD Primary Care Provider [phone] Teresita Garcia LPN Unavailable Unavailabl e Slade Lennon Unavailable Teresita Garcia LPN Unavailable Unavailabl e Encounter Details Date Type Department Care Team (Late st Contact Info) Description 01/09/2025 Orders Only External Location [address] [place] [address] Provider, External Social History Tobacco Use Types [...] Description 06/03/2025 8:30 AM EDT Clinical Support [facility] [address] [place] [address] 06/03/2025 10:00 AM EDT Office Visit [facility] [address] [place] [address] Daniel Marques MD [address] [place] [address] documented as of this encounter Procedures Procedure Name Priority Date/Time Associated Diagnosis Comments CT OUTSIDE IMAGES 01/09/2025 8:28 AM EDT documented in this encounter Results * CT OUTSIDE IMAGES (01/09/2025 8:28 AM EDT) Anatomical Region Laterality Modality Computed Tomogra phy 01/09/2025 8:28 AM EDT us External Provider IMG CT PROCEDURES Final Result documented in this encounter Visit Diagnoses Not on filedocumented in this encounter Care Teams Audiology Assistant Relationship Specialty Start Date End Date López Alicea MD [address] [place] [address] PCP - General 02/24/25 Teresita Garcia LPN [facility] TCM Nurse 03/04/25 04/03/25 Slade Lennon PA [address] [place] [address] Referring Physician Gastroenterology 03/19/25 Teresita Garcia LPN [facility] TCM Nurse 04/28/25 05/28/25 documented as of this encounter
--- OUTSIDE RECORDS SUMMARY | 2025-05-29 10:41 | XMS_ITS | Encounter Summary ---
Author Organization Healthcare Address [address] [place] [address] Care Team Providers Care Structural Steel Ironworker Name Role Phone López Alicea MD Primary Care Provider [phone] Teresita Garcia LPN Unavailable Unavailabl e Slade Lennon Unavailable Teresita Garcia LPN Unavailable Unavailabl e Encounter Details Date Type Department Care Team (Late st Contact Info) Description 01/16/2024 Orders Only External Location [address] [place] [address] Provider, External Social History Tobacco Use Types [...] Description 06/03/2025 8:30 AM EDT Clinical Support [facility] [address] [place] [address] 06/03/2025 10:00 AM EDT Office Visit [facility] [address] [place] [address] Daniel Marques MD [address] [place] [address] documented as of this encounter Procedures Procedure Name Priority Date/Time Associated Diagnosis Comments XR THORACIC OUTSIDE IMAGES 01/16/2024 12:26 PM EDT documented in this encounter Results * XR THORACIC OUTSIDE IMAGES (01/16/2024 12:26 PM EDT) Anatomical Region Laterality Modality Radiographic Lori ging 01/16/2024 12:2 6 PM EDT External Provider IMG XR PROCEDURES Final Result documented in this encounter Visit Diagnoses Not on filedocumented in this encounter Care Teams Structural Steel Ironworker Relationship Specialty Start Date End Date López Alicea MD [address] [place] [address] PCP - General 02/24/25 Teresita Garcia LPN [facility] TCM Nurse 03/04/25 04/03/25 Slade Lennon PA [facility] [place] [address] Referring Physician Gastroenterology 03/19/25 Teresita Garcia LPN [facility] TCM Nurse 04/28/25 05/28/25 documented as of this encounter
--- OUTSIDE RECORDS SUMMARY | 2025-05-29 10:41 | XMS_ITS | Encounter Summary ---
Author Organization Healthcare Address [address] [place] [address] Care Team Providers Care Regional Environmental Manager Name Role Phone López Alicea MD Primary Care Provider [phone] Teresita Garcia LPN Unavailable Unavailabl e Slade Lennon Unavailable Teresita Garcia LPN Unavailable Unavailabl e Encounter Details Date Type Department Care Team (Late st Contact Info) Description 10/17/2024 Orders Only External Location [address] [place] [address] Provider, External Social History Tobacco Use Types [...] Description 06/03/2025 8:30 AM EDT Clinical Support [facility] [address] [place] [address] 06/03/2025 10:00 AM EDT Office Visit [facility] [address] [place] [address] Daniel Marques MD [address] [place] [address] documented as of this encounter Procedures Procedure Name Priority Date/Time Associated Diagnosis Comments CT NEURO OUTSIDE IMAGES 10/17/2024 9:10 PM EST documented in this encounter Results * CT NEURO OUTSIDE IMAGES (10/17/2024 9:10 PM EST) Anatomical Region Laterality Modality Computed Tomogra phy 10/17/2024 9:10 PM EST us External Provider IMG CT PROCEDURES Final Result documented in this encounter Visit Diagnoses Not on filedocumented in this encounter Care Teams Regional Environmental Manager Relationship Specialty Start Date End Date López Alicea MD [address] [place] [address] PCP - General 02/24/25 Teresita Garcia LPN [facility] Nurse 03/04/25 04/03/25 Slade Lennon PA [address] [place] [address] Referring Physician Gastroenterology 03/19/25 Teresita Garcia LPN [facility] Nurse 04/28/25 05/28/25 documented as of this encounter
--- OUTSIDE RECORDS SUMMARY | 2025-05-29 10:41 | XMS_ITS | Encounter Summary ---
Author Organization Healthcare Address [address] [place] [address] Care Team Providers Care Cashiers Bussers Food Runners Name Role Phone López Alicea MD Primary Care Provider [phone] Teresita Garcia LPN Unavailable Unavailabl e Slade Lennon Unavailable Teresita Garcia LPN Unavailable Unavailabl e Encounter Details Date Type Department Care Team (Late st Contact Info) Description 10/17/2024 Orders Only External Location [address] [place] [address] Provider, External Social History Tobacco Use Types [...] Description 06/03/2025 8:30 AM EDT Clinical Support [facility] [address] [place] [address] 06/03/2025 10:00 AM EDT Office Visit [facility] [address] [place] [address] Daniel Marques MD [address] [place] [address] documented as of this encounter Procedures Procedure Name Priority Date/Time Associated Diagnosis Comments CT NEURO OUTSIDE IMAGES 10/17/2024 9:13 PM EST documented in this encounter Results * CT NEURO OUTSIDE IMAGES (10/17/2024 9:13 PM EST) Anatomical Region Laterality Modality Computed Tomogra phy 10/17/2024 9:13 PM EST us External Provider IMG CT PROCEDURES Final Result documented in this encounter Visit Diagnoses Not on filedocumented in this encounter Care Teams Cashiers Bussers Food Runners Relationship Specialty Start Date End Date López Alicea MD [address] [place] [address] PCP - General 02/24/25 Teresita Garcia LPN [facility] 03/04/25 04/03/25 Slade Lennon PA [address] [place] [address] Referring Physician Gastroenterology 03/19/25 Teresita Garcia LPN [facility] 04/28/25 05/28/25 documented as of this encounter
--- OUTSIDE RECORDS SUMMARY | 2025-05-29 10:41 | XMS_ITS | Encounter Summary ---
Author Organization [facility] Address [address] [place] [id number] Care Team Providers Care Bottom Precipitator Operator Name Role Phone López Alicea MD Primary Care Provider [phone] Encounter Details Date Type Department Care Team (Late st Contact Info) Description 02/12/2025 Results Follow-Up [facility] [address] [place] [address] Yumiko Lynch, PAStaceyC [address] [place] [address] Social History Tobacco Use Types Packs/Day Years [...] Description 08/01/2025 2:30 PM EDT Office Visit [facility] [address] [place] [address] López Alicea MD [address] [place] [address] documented as of this encounter Visit Diagnoses Diagnosis Potassium deficiency- Primary Hypopotassemia documented in this encounter Additional Health Concerns Assessment Noted Time PHQ-2 Depression Total Score: 1 11/09/19 24 11:34 AM EST documented as of this encounter Care Teams Bottom Precipitator Operator Relationship Specialty Start Date End Date López Alicea MD [address] [address] PCP - General 07/16/15 documented as of this encounter
--- OUTSIDE RECORDS SUMMARY | 2025-05-29 10:41 | XMS_ITS | Encounter Summary ---
Author Organization Healthcare Address [address] [place] [address] Care Team Providers Care Regulatory Internship Name Role Phone López Alicea MD Primary Care Provider [phone] Teresita Garcia LPN Unavailable Unavailabl e Slade Lennon Unavailable Teresita Garcia LPN Unavailable Unavailabl e Encounter Details Date Type Department Care Team (Late st Contact Info) Description 11/01/2024 Orders Only External Location [address] [place] [address] Provider, External Social History Tobacco Use Types [...] Description 06/03/2025 8:30 AM EDT Clinical Support [facility] [address] [place] [address] 06/03/2025 10:00 AM EDT Office Visit [facility] [address] [place] [address] Daniel Marques MD [address] [place] [address] documented as of this encounter Procedures Procedure Name Priority Date/Time Associated Diagnosis Comments CT NEURO OUTSIDE IMAGES 11/01/2024 1:08 PM EST documented in this encounter Results * CT NEURO OUTSIDE IMAGES (11/01/2024 1:08 PM EST) Anatomical Region Laterality Modality Computed Tomogra phy 11/01/2024 1:08 PM EST us External Provider IMG CT PROCEDURES Final Result documented in this encounter Visit Diagnoses Not on filedocumented in this encounter Care Teams Regulatory Internship Relationship Specialty Start Date End Date López Alicea MD [address] [place] [address] PCP - General 02/24/25 Teresita Garcia LPN [facility] TCM Nurse 03/04/25 04/03/25 Slade Lennon PA [address] [place] [address] Referring Physician Gastroenterology 03/19/25 Teresita Garcia LPN [facility] TCM Nurse 04/28/25 05/28/25 documented as of this encounter
--- OUTSIDE RECORDS SUMMARY | 2025-05-29 10:41 | XMS_ITS | Encounter Summary ---
Author Organization [facility] Address [address] [place] [address] Care Team Providers Care Manager Grocery Name Role Phone López Alicea MD Primary Care Provider Encounter Details Date Type Department Care Team (Late st Contact Info) Description 04/30/2025 Transitional Care Management Telephone Encounter [facility] [address] [place] [phone] Del Grossman, RN Social History Tobacco Use Types Packs/Day Years [...] as of this encounter Miscellaneous Notes * Outreach Note - Del Grossman RN - 04/30/2025 11:48 AM EDT Images from the original note were not included. Call Center TCM Note Flowsheet Row Responses [facility] patient discharged from? Non- [] Does the patient have one of the following disease processes/diagnoses(primary or secondary)? Other TCM attempt successful? No Unsuccessful attempts Attempt 3 Del Rees - Registered Nurse 04/30/2025, 11:50 EDT documented in this encounter Plan of Treatment Upcoming Encounters Date Type Department Care Team (Late st Contact Info) Description 08/01/2025 2:30 PM EDT Office Visit [facility] [address] [place] [address] López Alicea MD [address] [place] [address] documented as of this encounter Visit Diagnoses Not on filedocumented in this encounter Additional Health Concerns Assessment Noted Time PHQ-2 Depression Total Score: 1 11/09/19 24 11:34 AM EST documented as of this encounter Care Teams Manager Grocery Relationship Specialty Start Date End Date López Alicea MD [address] [place] [address] PCP - General 07/16/15 documented as of this encounter
--- OUTSIDE RECORDS SUMMARY | 2025-05-29 10:41 | XMS_ITS | Encounter Summary ---
Author Organization [facility] Address [address] [place] [address] Care Team Providers Care Forms Analysis Manager Name Role Phone López Alicea MD Primary Care Provider Encounter Details Date Type Department Care Team (Late Contact Info) Description 04/29/2025 Transitional Care Management Telephone Encounter [facility] [address] [place] [phone] Jane Mckinnon, RN Social History Tobacco Use Types Packs/Day [...] encounter Miscellaneous Notes * Outreach Note - Jane Mckinnon RN - 04/29/2025 1:39 PM EDT Images from the original note were not included. Call Center TCM Note Flowsheet Row [facility]es [facility] patient discharged from? Non-BH Does the patient have one of the following disease processes/diagnoses(primary or secondary)? Other TCM attempt successful? No [VR is blank] Unsuccessful attempts Attempt 1 Call Status Left message Jane Bhatia - Registered Nurse 04/29/2025, 13:41 EDT documented in this encounter Plan of Treatment Upcoming Encounters Date Type Department Care Team (Late st Contact Info) Description 08/01/2025 2:30 PM EDT Office Visit [facility] [address] [place] [phone] López Alicea MD [address] [place] [address] documented as of this encounter Visit Diagnoses Not on filedocumented in this encounter Additional Health Concerns Assessment Noted Time PHQ-2 Depression Total Score: 1 11/09/19 24 11:34 AM EST documented as of this encounter Care Teams Forms Analysis Manager Relationship Specialty Start Date End Date López Alicea MD [address] [place] [address] PCP - General 07/16/15 documented as of this encounter
--- OUTSIDE RECORDS SUMMARY | 2025-05-29 10:41 | XMS_ITS | Encounter Summary ---
Author Organization [facility] Address [address] [place] [address] Care Team Providers Care Social Work Professor Name Role Phone López Alicea MD Primary Care Provider Encounter Details Date Type Department Care Team (Late st Contact Info) Description 04/28/2025 Readmission Management [facility] [address] [place] [phone] Zenobia Steen, RN Social History Tobacco Use Types Packs/Day [...] encounter Miscellaneous Notes * Outreach Note - Zenobia Steen RN - 04/28/2025 8:27 AM EDT Prep Survey Flowsheet Row Responses [facility] patient discharged from? Non-BH Is LACE score < 7 ? Non-BH Discharge Eligibility [facility] Date of Admission 04/25/25 Date of Discharge 04/27/25 Discharge Disposition Home or Self Care Discharge diagnosis Gastrointestinal hemorrhage with melena Does the patient have one of the following disease processes/diagnoses(primary or secondary)? Other Prep survey completed? Yes ZENOBIA Gray - Registered Nurse documented in this encounter Plan of Treatment Upcoming Encounters Date Type Department Care Team (Late st Contact Info) Description 08/01/2025 2:30 PM EDT Office Visit [facility] [address] [place] [phone] López Alicea MD [address] [place] [address] documented as of this encounter Visit Diagnoses Not on filedocumented in this encounter Additional Health Concerns Assessment Noted Time PHQ-2 Depression Total Score: 1 11/09/19 24 11:34 AM EST documented as of this encounter Care Teams Social Work Professor Relationship Specialty Start Date End Date óLpez Alicea MD [address] [place] [address] PCP - General 07/16/15 documented as of this encounter
--- OUTSIDE RECORDS SUMMARY | 2025-05-29 10:41 | XMS_ITS | Encounter Summary ---
Author Organization Healthcare Address [address] [place] [address] Care Team Providers Care Religious Education Coordinator Name Role Phone López Alicea MD Primary Care Provider [phone] Teresita Garcia LPN Unavailable Unavailabl e Slade Lennon Unavailable Teresita Garcia LPN Unavailable Unavailabl e Encounter Details Date Type Department Care Team (Late st Contact Info) Description 11/22/2024 Orders Only External Location [address] [place] [address] Provider, External Social History Tobacco Use Types [...] Support [facility] [address] [place] [address] 06/03/2025 10:00 AM EDT Office Visit [facility] [address] [place] [address] Daniel Marques MD [address] [place] [address] documented as of this encounter Procedures Procedure Name Priority Date/Time Associated Diagnosis Comments CT ABDOMEN OUTSIDE IMAGES 11/22/2024 4:54 AM EST documented in this encounter Results * CT ABDOMEN OUTSIDE IMAGES (11/22/2024 4:54 AM EST) Anatomical Region Laterality Modality Computed Tomogra phy 11/22/2024 4:54 AM EST us External Provider IMG CT PROCEDURES Final Result documented in this encounter Visit Diagnoses Not on filedocumented in this encounter Care Teams Religious Education Coordinator Relationship Specialty Start Date End Date López Alicea MD [address] [place] [address] PCP - General 02/24/25 Teresita Garcia LPN [facility] TCM Nurse 03/04/25 04/03/25 Slade Lennon PA [address] [place] [address] Referring Physician Gastroenterology 03/19/25 Teresita Garcia LPN [facility] TCM Nurse 04/28/25 05/28/25 documented as of this encounter
--- OUTSIDE RECORDS SUMMARY | 2025-05-29 10:41 | XMS_ITS | Encounter Summary ---
Author Organization Healthcare Address [address] [place] [address] Care Team Providers Care Die Cutter Operator Name Role Phone López Alicea MD Primary Care Provider [phone] Teresita Garcia LPN Unavailable Unavailabl e Slade Lennon Unavailable Teresita Garcia LPN Unavailable Unavailabl e Encounter Details Date Type Department Care Team (Late st Contact Info) Description 11/01/2024 Orders Only External Location [address] [place] [address] Provider, External Social History Tobacco Use Types [...] 06/03/2025 8:30 AM EDT Clinical Support [facility] [address] [place] [address] 06/03/2025 10:00 AM EDT Office Visit [facility] [address] [place] [address] Daniel Marques MD [address] [place] [address] documented as of this encounter Procedures Procedure Name Priority Date/Time Associated Diagnosis Comments CT THORACIC OUTSIDE IMAGES 11/01/2024 1:13 PM EST documented in this encounter Results * CT THORACIC OUTSIDE IMAGES (11/01/2024 1:13 PM EST) Anatomical Region Laterality Modality Computed Tomogra phy 11/01/2024 1:13 PM EST us External Provider IMG CT PROCEDURES Final Result documented in this encounter Visit Diagnoses Not on filedocumented in this encounter Care Teams Die Cutter Operator Relationship Specialty Start Date End Date López Alicea MD [address] [place] [address] PCP - General 02/24/25 Teresita Garcia LPN [facility] TCM Nurse 03/04/25 04/03/25 Slade Lennon PA [address] [place] [address] Referring Physician Gastroenterology 03/19/25 Teresita Garcia LPN [facility] T[facility] Nurse 04/28/25 05/28/25 documented as of this encounter
--- OUTSIDE RECORDS SUMMARY | 2025-05-29 10:41 | XMS_ITS | Encounter Summary ---
Author Organization Healthcare Address [address] [place] [place] [address] Care Team Providers Care Collection Correspondent Name Role Phone López Alicea MD Primary Care Provider [phone] Teresita Garcia LPN Unavailable Unavailabl e Slade Lennon Unavailable Teresita Garcia LPN Unavailable Unavailabl e Encounter Details Date Type Department Care Team (Late st Contact Info) Description 10/17/2024 Orders Only External Location [address] [place] [address] Provider, External Social History Tobacco Use Types [...] [facility] [address] [place] [address] 06/03/2025 10:00 AM EDT Office Visit [facility] [address] [place] [address] Daniel Marques MD [address] [place] [address] documented as of this encounter Procedures Procedure Name Priority Date/Time Associated Diagnosis Comments XR MSK OUTSIDE IMAGES 10/17/2024 9:15 PM EST documented in this encounter Results * XR MSK OUTSIDE IMAGES (10/17/2024 9:15 PM EST) Anatomical Region Laterality Modality Radiographic Lori ging 10/17/2024 9:15 PM EST us External Provider IMG XR PROCEDURES Final Result documented in this encounter Visit Diagnoses Not on filedocumented in this encounter Care Teams Collection Correspondent Relationship Specialty Start Date End Date López Alicea MD [address] [place] [address] PCP - General 02/24/25 Teresita Garcia LPN [facility] TCM Nurse 03/04/25 04/03/25 Slade Lennon PA [address] [place] [address] Referring Physician Gastroenterology 03/19/25 Teresita Garcia LPN [facility] T[facility] Nurse 04/28/25 05/28/25 documented as of this encounter
--- OUTSIDE RECORDS SUMMARY | 2025-05-29 10:41 | XMS_ITS | Encounter Summary ---
Author Organization Healthcare Address [address] [place] [address] Care Team Providers Care Forms Designer Name Role Phone López Alicea MD Primary Care Provider [phone] Teresita Garcia LPN Unavailable Unavailabl e Slade Lennon Unavailable Teresita Garcia LPN Unavailable Unavailabl e Encounter Details Date Type Department Care Team (Late st Contact Info) Description 11/22/2024 Orders Only External Location [address] [place] [address] Provider, External Social History Tobacco Use Types [...] Description 06/03/2025 8:30 AM EDT Clinical Support [facility] [address] [place] [address] 06/03/2025 10:00 AM EDT Office Visit [facility] [address] [place] [address] Daniel Marques MD [address] [place] [address] documented as of this encounter Procedures Procedure Name Priority Date/Time Associated Diagnosis Comments CT NEURO OUTSIDE IMAGES 11/22/2024 4:45 AM EST documented in this encounter Results * CT NEURO OUTSIDE IMAGES (11/22/2024 4:45 AM EST) Anatomical Region Laterality Modality Computed Tomogra phy 11/22/2024 4:45 AM EST us External Provider IMG CT PROCEDURES Final Result documented in this encounter Visit Diagnoses Not on filedocumented in this encounter Care Teams Forms Designer Relationship Specialty Start Date End Date López Alicea MD [address] [place] [address] PCP - General 02/24/25 Teresita Garcia LPN [facility] TCM Nurse 03/04/25 04/03/25 Slade Lennon PA [address] [place] [address] Referring Physician Gastroenterology 03/19/25 Teresita Garcia LPN [facility] TCM Nurse 04/28/25 05/28/25 documented as of this encounter
--- OUTSIDE RECORDS SUMMARY | 2025-05-29 10:41 | XMS_ITS | Encounter Summary ---
Author Organization Healthcare Address [address] [place] [address] Care Team Providers Care Training Generalist Name Role Phone López Alicea MD Primary Care Provider [phone] Teresita Garcia LPN Unavailable Unavailabl e Slade Lennon Unavailable Teresita Garcia LPN Unavailable Unavailabl e Encounter Details Date Type Department Care Team (Late st Contact Info) Description 01/16/2024 Orders Only External Location [address] [place] [address] Provider, External Social History Tobacco Use Types [...] Support [facility] [address] [place] [address] 06/03/2025 10:00 AM EDT Office Visit [facility] [address] [place] [address] Daniel Marques MD [address] [place] [address] documented as of this encounter Procedures Procedure Name Priority Date/Time Associated Diagnosis Comments CT THORACIC OUTSIDE IMAGES 01/16/2024 1:11 PM EDT documented in this encounter Results * CT THORACIC OUTSIDE IMAGES (01/16/2024 1:11 PM EDT) Anatomical Region Laterality Modality Computed Tomogra phy 01/16/2024 1:11 PM EDT External Provider IMG CT PROCEDURES Final Result documented in this encounter Visit Diagnoses Not on filedocumented in this encounter Care Teams Training Generalist Relationship Specialty Start Date End Date López Alicea MD [address] [place] [address] PCP - General 02/24/25 Teresita Garcia LPN [facility] TCM Nurse 03/04/25 04/03/25 [place] [address] [place] [address] Referring Physician Gastroenterology 03/19/25 Teresita Garcia LPN [facility] TCM Nurse 04/28/25 05/28/25 documented as of this encounter
--- OUTSIDE RECORDS SUMMARY | 2025-05-29 10:41 | XMS_ITS | Encounter Summary ---
Author Organization [facility] Address [address] [place] [id number] Care Team Providers Care Milling Operator Name Role Phone López Alicea MD Primary Care Provider [phone] Reason for Visit * Reason Comments Med Refill Encounter Details Date Type Department Care Team (Late Contact Info) Description 05/12/[address] [facility] [address] [place] [address] López Alicea MD [address] [facility] [place] [address] Chronic pain syndrome Social History Tobacco Use Types Packs/Day Years [...] Description 08/01/2025 2:30 PM EDT Office Visit [facility] [address] [place] [address] López Alicea MD [address] [place] [address] documented as of this encounter Visit Diagnoses Diagnosis Chronic pain syndrome documented in this encounter Additional Health Concerns Assessment Noted Time PHQ-2 Depression Total Score: 1 11/09/19 24 11:34 AM EST documented as of this encounter Care Teams Milling Operator Relationship Specialty Start Date End Date López Alicea MD [address] [facility] [place] [address] PCP - General 07/16/15 documented as of this encounter
--- OUTSIDE RECORDS SUMMARY | 2025-05-29 10:41 | XMS_ITS | Encounter Summary ---
Author Organization Healthcare Address [address] [place] [address] Care Team Providers Care Erosion Control Coordinator Name Role Phone López lAicea MD Primary Care Provider [phone] Teresita Garcia LPN Unavailable Unavailabl e Slade Lennon Unavailable Teresita Garcia LPN Unavailable Unavailabl e Encounter Details Date Type Department Care Team (Late st Contact Info) Description 11/22/2024 Orders Only External Location [address] [place] [address] Provider, External Social History Tobacco Use Types [...] Description 06/03/2025 8:30 AM EDT Clinical Support [facility] [address] [place] [address] 06/03/2025 10:00 AM EDT Office Visit [facility] [address] [place] [address] [place] [address] Daniel Marques MD [address] [place] [address] [place] [address] documented as of this encounter Procedures Procedure Name Priority Date/Time Associated Diagnosis Comments CT NEURO OUTSIDE IMAGES 11/22/2024 4:40 AM EST documented in this encounter Results * CT NEURO OUTSIDE IMAGES (11/22/2024 4:40 AM EST) Anatomical Region Laterality Modality Computed Tomogra phy 11/22/2024 4:40 AM EST us External Provider IMG CT PROCEDURES Final Result documented in this encounter Visit Diagnoses Not on filedocumented in this encounter Care Teams Erosion Control Coordinator Relationship Specialty Start Date End Date López Alicea MD [address] [place] [address] PCP - General 02/24/25 Teresita Garcia LPN [facility] Nurse 03/04/25 04/03/25 Slade Lennon PA [address] [place] [address] Referring Physician Gastroenterology 03/19/25 Teresita Garcia LPN [facility] Nurse 04/28/25 05/28/25 documented as of this encounter
--- OUTSIDE RECORDS SUMMARY | 2025-05-29 10:41 | XMS_ITS | Encounter Summary ---
Author Organization [facility] Address [address] [place] [phone] Care Team Providers Care Surgical Forceps Fabricator Name Role Phone López Alicea MD Primary Care Provider Encounter Details Date Type Department Care Team (Late st Contact Info) Description 08/24/2015 External CPT II ASSOCIATE PROF[employer]OR [employer] PATHOLOGY [facility] [employer] Social History Tobacco Use [...] Description 08/01/2025 2:30 PM EDT Office Visit [facility] [address] [facility] [place] [address] López Alicea MD [address] [place], [place] [phone] documented as of this encounter Visit Diagnoses Not on filedocumented in this encounter Care Teams Surgical Forceps Fabricator Relationship Specialty Start Date End Date López Alicea MD [address] [place], [place] [address] PCP - General 07/16/15 documented as of this encounter
--- OUTSIDE RECORDS SUMMARY | 2025-05-29 10:41 | XMS_ITS | Encounter Summary ---
Author Organization [facility] Address [address] [place] [phone] Care Team Providers Care Turner Splitter Machine Operator Name Role Phone López Alicea MD Primary Care Provider Encounter Details Date Type Department Care Team (Late st Contact Info) Description 03/11/2025 Results Follow-Up [facility] [address] [place] [address] López Alicea MD [address] [place] [address] Social History Tobacco Use Types [...] Description 08/01/2025 2:30 PM EDT Office Visit [facility] [address] [place] [address] López Alicae MD [address] [place] [address] documented as of this encounter Visit Diagnoses Diagnosis Potassium deficiency Hypopotassemia documented in this encounter Additional Health Concerns Assessment Noted Time PHQ-2 Depression Total Score: 1 11/09/19 24 11:34 AM EST documented as of this encounter Care Teams Turner Splitter Machine Operator Relationship Specialty Start Date End Date López Alicea MD [address] [place] [address] PCP - General 07/16/15 documented as of this encounter
--- OUTSIDE RECORDS SUMMARY | 2025-05-29 10:41 | XMS_ITS | Encounter Summary ---
Author Organization [facility] Address [address] [place] [address] Care Team Providers Care Chemical Unit Operator Name Role Phone López Alicea MD Primary Care Provider [phone] Reason for Visit * Reason Onset Date Comments Med Refill 05/13/2025 Encounter Details Date Type Department Care Team (Late st Contact Info) Description 05/13/[address] [facility] [address] [place] [address] López Alicea MD [address] [place] [address] Med Refill Social History Tobacco Use Types Packs/Day Years [...] encounter Miscellaneous Notes * Telephone Encounter - López Alicea MD - 05/13/2025 1:38 PM EDT Please call, requested meds sent to pharmacy. Due for follow-up office visit. With me in June or July. Patricio reviewed 05/13/2025 . Follow up appt is scheduled on Visit date not found . Last office visit with me : 03/10/2025 * Telephone Encounter - Mariposa Sosa RegSched Rep - 05/13/2025 9:29 AM EDT Caller: Chema Hendrickson Relationship: Self Best call back number: [phone] Requested Prescriptions: Requested Prescriptions Pending Prescriptions Disp Refills oxyCODONE ER (OxyCONTIN) 40 MG 12 hr tablet 60 tablet 0 Sig: Take 1 tablet by mouth Every 12 (Twelve) Hours. oxyCODONE-acetaminophen (PERCOCET) 10-325 MG per tablet 90 tablet 0 Sig: Take 1 tablet by mouth Every 8 (Eight) Hours As Needed for Moderate Pain. Pharmacy where request should be sent: [facility] - [address] [phone] [facility] [phone] FX Last office visit with prescribing clinician: 03/10/2025 Last telemedicine visit with prescribing clinician: Visit date not found Next office visit with prescribing clinician: Visit date not found Additional details provided by patient: Does the patient have less than a 3 day supply: [x] Yes [] No Would you like a call back once the refill request has been completed: [] Yes [x] No If the office needs to give you a call back, can they leave a voicemail: [] Yes [x] No Elroy Dubose 05/13/25 09:29 EDT documented in this encounter Plan of Treatment Upcoming Encounters Date Type Department Care Team (Late st Contact Info) Description 08/01/2025 2:30 PM EDT Office Visit [facility] [address] [place] [id number] López Alicea MD [address] [place] [address] documented as of this encounter Visit Diagnoses Diagnosis Chronic pain syndrome Degeneration of intervertebral disc of lumbar region documented in this encounter Additional Health Concerns Assessment Noted Time PHQ-2 Depression Total Score: 1 11/09/19 24 11:34 AM EST documented as of this encounter Care Teams Chemical Unit Operator Relationship Specialty Start Date End Date López Alicea MD [address] [place] [address] PCP - General 07/16/15 documented as of this encounter
--- OUTSIDE RECORDS SUMMARY | 2025-05-29 10:41 | XMS_ITS | Encounter Summary ---
Author Organization Healthcare Address [address] [place] [address] Care Team Providers Care Pr Manager Name Role Phone López Alicea MD Primary Care Provider [phone] Teresita Garcia LPN Unavailable Unavailabl e Slade Lennon Unavailable Teresita Garcia LPN Unavailable Unavailabl e Encounter Details Date Type Department Care Team (Late st Contact Info) Description 02/05/2025 Orders Only External Location [address] [place] [address] Provider, External Social History Tobacco Use Types [...] Description 06/03/2025 8:30 AM EDT Clinical Support [facility] [address] [place] [address] 06/03/2025 10:00 AM EDT Office Visit [facility] [address] [place] [address] Daniel Marques MD [address] [place] [address] documented as of this encounter Procedures Procedure Name Priority Date/Time Associated Diagnosis Comments CT NEURO OUTSIDE IMAGES 02/05/2025 1:06 AM EDT documented in this encounter Results * CT NEURO OUTSIDE IMAGES (02/05/2025 1:06 AM EDT) Anatomical Region Laterality Modality Computed Tomogra phy 02/05/2025 1:06 AM EDT External Provider IMG CT PROCEDURES Final Result documented in this encounter Visit Diagnoses Not on filedocumented in this encounter Care Teams Pr Manager Relationship Specialty Start Date End Date López Alicea MD [address] [place] [address] PCP - General 02/24/25 Teresita Garcia LPN [facility] TCM Nurse 03/04/25 04/03/25 Slade Lennon PA [address] [place] [address] Referring Physician Gastroenterology 03/19/25 Teresita Garcia LPN [facility] TCM Nurse 04/28/25 05/28/25 documented as of this encounter
--- OUTSIDE RECORDS SUMMARY | 2025-05-29 10:41 | XMS_ITS | Encounter Summary ---
Author Organization Healthcare Address [address] [place] [address] Care Team Providers Care Ice Sculptor Name Role Phone López Alicea MD Primary Care Provider [phone] Teresita Garcia LPN Unavailable Unavailabl e Slade Lennon Unavailable Teresita Garcia LPN Unavailable Unavailabl e Encounter Details Date Type Department Care Team (Late st Contact Info) Description 11/22/2024 Orders Only External Location [address] [place] [address] Provider, External Social History Tobacco Use Types [...] Description 06/03/2025 8:30 AM EDT Clinical Support [facility] [address] [place] [address] 06/03/2025 10:00 AM EDT Office Visit [facility] [address] [place] [address] Daniel Marques MD [address] [place] [address] documented as of this encounter Procedures Procedure Name Priority Date/Time Associated Diagnosis Comments CT NEURO OUTSIDE IMAGES 11/22/2024 4:51 AM EST documented in this encounter Results * CT NEURO OUTSIDE IMAGES (11/22/2024 4:51 AM EST) Anatomical Region Laterality Modality Computed Tomogra phy 11/22/2024 4:51 AM EST us External Provider IMG CT PROCEDURES Final Result documented in this encounter Visit Diagnoses Not on filedocumented in this encounter Care Teams Ice Sculptor Relationship Specialty Start Date End Date López Alicea MD [address] [place] [address] PCP - General 02/24/25 Teresita Garcia LPN [facility] Nurse 03/04/25 04/03/25 Slade Lennon PA [address] [place] [address] Referring Physician Gastroenterology 03/19/25 Teresita Garcia LPN [facility] Nurse 04/28/25 05/28/25 documented as of this encounter
--- OUTSIDE RECORDS SUMMARY | 2025-05-29 10:41 | XMS_ITS | Encounter Summary ---
Author Organization [facility] Address [address] [place] [address] Care Team Providers Care National Accounts Sales Name Role Phone López Alicea MD Primary Care Provider [phone] Reason for Visit * Reason Comments Med Refill Encounter Details Date Type Department Care Team (Late Contact Info) Description 05/04/2025 Refill [facility] [address] [place] [address] López Alicea MD [address] [place] [place] [address] Social History Tobacco Use Types [...] Description 08/01/2025 2:30 PM EDT Office Visit [facility] [address] [place] [address] López Alicea MD [address] [place] [address] documented as of this encounter Visit Diagnoses Not on filedocumented in this encounter Additional Health Concerns Assessment Noted Time PHQ-2 Depression Total Score: 1 11/09/19 24 11:34 AM EST documented as of this encounter Care Teams National Accounts Sales Relationship Specialty Start Date End Date López Alicea MD [address] [facility] [place] [address] PCP - General 07/16/15 documented as of this encounter
--- OUTSIDE RECORDS SUMMARY | 2025-05-29 10:41 | XMS_ITS | Encounter Summary ---
Author Organization Healthcare Address [address] [place] [address] Care Team Providers Care Cotton Converter Name Role Phone López Alicea MD Primary Care Provider [phone] Teresita Garcia LPN Unavailable Unavailabl e Slade Lennon Unavailable Teresita Garcia LPN Unavailable Unavailabl e Encounter Details Date Type Department Care Team (Late st Contact Info) Description 11/01/2024 Orders Only External Location [address] [place] [address] Jerel Stephenson PA [address] [place], [place] [id number] Social History Tobacco Use Types Packs/Day Years [...] Description 06/03/2025 8:30 AM EDT Clinical Support [facility] [place] [address] [address] 06/03/2025 10:00 AM EDT Office Visit [facility] [place] [address] [address] Daniel Marques MD [address] [facility] [address] [place] [address] documented as of this encounter Procedures Procedure Name Priority Date/Time Associated Diagnosis Comments US OUTSIDE IMAGES 11/01/2024 4:26 PM EST documented in this encounter Results * US OUTSIDE IMAGES (11/01/2024 4:26 PM EST) Anatomical Region Laterality Modality Ultrasound 11/01/2024 4:26 PM EST us Jerel DUDLEY IMG US PROCEDURES Final Resul t documented in this encounter Visit Diagnoses Not on filedocumented in this encounter Care Teams Cotton Converter Relationship Specialty Start Date End Date López Alicea MD [address] [place] [address] [place] [address] PCP - General 02/24/25 Teresita Garcia LPN [facility] TCM Nurse 03/04/25 04/03/25 Slade Lennon PA [address] [place] [address] Referring Physician Gastroenterology 03/19/25 Teresita Garcai LPN [facility] TCM Nurse 04/28/25 05/28/25 documented as of this encounter
--- OUTSIDE RECORDS SUMMARY | 2025-05-29 10:41 | XMS_ITS | Encounter Summary ---
Author Organization [facility] Address [address] [place] [address] Care Team Providers Care Structural Analysis Engineer Name Role Phone López Alicea MD Primary Care Provider Reason for Visit * Reason Onset Date Comments Call from [facility] 05/09/2025 Encounter Details Date Type Department Care Team (Late st Contact Info) Description 05/09/2025 Telephone [facility] [address] [place] [address] López Alicea MD [address] [place] [address] Call from [facility] Social History Tobacco Use Types Packs/Day Years [...] Telephone Encounter - López Alicea MD - 05/09/2025 3:51 PM EDT Noted. bds * Telephone Encounter - Lakshmi Child MA - 05/09/2025 3:27 PM EDT Pt aware and understood. * Telephone Encounter - Lakshmi Child MA - 05/09/2025 3:08 PM EDT Lvm * Telephone Encounter - López Alicea MD - 05/09/2025 2:42 PM EDT Please call patient. We received a call from [facility] lab where he had had 2 units of blood transfusion done on January 15. Apparently the blood center called them and stated that there is a possibility that one of the units of blood could have had hepatitis C. However, I reviewed the blood work from recent admission and on April 25, 2025, his hepatitis C testwas negative. That is good news. The next time he comes in for his follow-up, we should recheck that to have 2 negative hepatitis test. Call was from [facility]. Discussed with director of laboratory operations,Jeannette Moss, at 2:45 PM on May 09, 2025. documented in this encounter Plan of Treatment Upcoming Encounters Date Type Department Care Team (Late st Contact Info) Description 08/01/2025 2:30 PM EDT Office Visit [facility] [address] [place] [address] López Alicea MD [address] [address] documented as of this encounter Visit Diagnoses Not on filedocumented in this encounter Additional Health Concerns Assessment Noted Time PHQ-2 Depression Total Score: 1 11/09/19 24 11:34 AM EST documented as of this encounter Care Teams Structural Analysis Engineer Relationship Specialty Start Date End Date López Alicea MD [address] [place] [address] PCP - General 07/16/15 documented as of this encounter
--- OUTSIDE RECORDS SUMMARY | 2025-05-29 10:41 | XMS_ITS | Encounter Summary ---
Author Organization [facility] Address [address] [place] [id number] Care Team Providers Care Shampoo Assistant Name Role Phone López Alicea MD Primary Care Provider [phone] Reason for Visit * Reason Comments Med Refill Encounter Details Date Type Department Care Team (Late Contact Info) Description 05/22/2025 Refill [facility] [address] [facility] [place] [address] López Alicea MD [address] [place] [address] Idiopathic gout, unspecified chronicity, unspecified site; Anxiety; Dysthymia; Major depressive disorder, recurrent episode, moderate degree; Potassium deficiency Social History Tobacco Use Types Packs/Day Years [...] Description 08/01/2025 2:30 PM EDT Office Visit [facility] [address] [facility] [place] [address] López Alicea MD [address] [facility] [place] [address] documented as of this encounter Visit Diagnoses Diagnosis Idiopathic gout, unspecified chronicity, unspecified site Anxiety Anxiety state, unspecified Dysthymia Dysthymic disorder Major depressive disorder, recurrent episode, moderate degree Major depressive disorder, recurrent episode, moderate Potassium deficiency Hypopotassemia documented in this encounter Additional Health Concerns Assessment Noted Time PHQ-2 Depression Total Score: 1 11/09/19 24 11:34 AM EST documented as of this encounter Care Teams Shampoo Assistant Relationship Specialty Start Date End Date López Alicea MD [address] [place] [address] PCP - General 07/16/15 documented as of this encounter
--- OUTSIDE RECORDS SUMMARY | 2025-05-29 10:41 | XMS_ITS | Clinical Summary ---
Author Organization [facility] Address [address] [place] [address] Care Team Providers Care Throat Cutter Name Role Phone Unknown, Attending Provider Primary Care Provide r Unavailable Source Comments This information has been disclosed to you from confidential records protectedfrom disclosure by state law. You shall make no further disclosure of thisinformation without the specific, written, and informed release of theindividual to whom it pertains, or as otherwise permitted by law. A generalauthorization for the release of medical or other information is not sufficientfor the purposes of therelease of HIV test results or diagnoses. [id number] Allergies No known active allergies Medications allopurinoL (ZYLOPRIM) 300 MG tablet Take 1 tablet (300 mg total) by mouth daily. Active amLODIPine (NORVASC) 10 MG tablet Take 1 tablet (10 mg total) by mouth daily. Active buPROPion XL (WELLBUTRIN XL) 150 MG 24 hr tablet Take 3 tablets (450 mg total) by mouth daily. Active busPIRone (BUSPAR) 10 MG tablet Take 1 tablet (10 mg total) by mouth 4 times a day. Active colchicine 0.6 mg tablet Take 1 tablet (0.6 mg total) by mouth daily. Active furosemide (LASIX) 20 MG tablet Take 1 tablet (20 mg total) by mouth daily. Active gabapentin (NEURONTIN) 800 MG tablet Take 1 tablet (800 mg total) by mouth 3 times a day. Active hydrOXYzine pamoate (VISTARIL) 50 MG capsule Take 1 capsule (50 mg total) by mouth 3 times a day as needed for Itching. Active OLANZapine (ZYPREXA) 5 MG tablet Take 1 tablet (5 mg total) by mouth at bedtime. Active oxyCODONE ER (OXYCONTIN) 40 mg TR12 12 hr tablet Take 1 tablet (40 mg total) by mouth every 12 hours. Active oxyCODONE-aceta minophen (PERCOCET) 10-325 mg per tablet Take 1 tablet by mouth every 8 hours. Active pantoprazole (PROTONIX) 40 MG tablet Take 1 tablet (40 mg total) by mouth every morning before breakfast. Active sertraline (ZOLOFT) 100 MG tablet Take 2 tablets (200 mg total) by mouth daily. Active SUMAtriptan (IMITREX) 100 MG tablet Take 1 tablet (100 mg total) by mouth once as needed for Migraine. Active tamsulosin (FLOMAX) 0.4 mg Cap Take 1 capsule (0.4 mg total) by mouth daily. Active tiZANidine (ZANAFLEX) 4 MG tablet Take 1 tablet (4 mg total) by mouth every 8 hours as needed. Active Active Problems Problem Noted Date Diagnosed Date GI bleed 10/02/2024 Encounters Date Type Department Care Team Description 03/21/2025 Telephone [facility] at [address] [place] [address] Opal Agrawal MSW 03/05/2025 Telephone [facility] at [address] [place] [address] Opal Agrawal MSW from Last 3 Months Social History Tobacco Use Types Packs/Day Years Used Date Smoking Tobacco: Never Smokeless Tobacco: Never Tobacco Cessation:Counseling Given: Not Answered Utilities Answer Date Recorded In the past 12 months has [employer], [employer], or water [employer] threatened to shut off services in your home? No 09/30/2024 AUDIT-C Answer Date Recorded Q1: How often do you have a drink containing alcohol? Never 09/30/2024 Q2: How many drinks containi ng alcohol do you have on a typical day when you are drinking? Patient does not drink Q3: How often do you have si x or more drinks on one occasion? Never 09/30/2024 Hunger Vital Sign Answer Date Recorded Within the past 12 months, y ou worried that your food would run out before you got the money to buy more. Never true 09/30/20 24 Within the past 12 months, t he food you bought just didn't last and you didn't have money to get more. Never true 09/30/2024 PRAPARE - Transportation Answer Date Re corded In the past 12 months, has l ack of transportation kept you from medical appointments or from getting medications? No 09/03 In the past 12 months, has l ack of transportation kept you from meetings, work, or from getting things needed for daily living? No 09/30/2024 Housing Stability Vital Sign Answer Aaron e Recorded In the last 12 months, was t here a time when you were not able to pay the mortgage or rent on time? No 09/30/2024 In the past 12 months, how m any times have you moved where you were living? 0 09/30/2024 At any time in the past 12 m [facility], were you homeless or living in a chcf (including now)? No 09/30/2024 Sex and Gender Information Value Date Recorded Sex Assigned at Not on file Legal Sex Male 10:22 PM EST Gender Identity Not on file Sexual Orientation Not on file Last Filed Vital Signs Vital Sign Reading Time Taken Comments Blood Pressure 108/86 10/03/2024 7:01 AM EST Pulse 59 10/03/2024 7:01 AM EST Temperature 37.3 C (99.1 F) 10/03/2024 7:01 AM EST Respiratory Rate 16 10/03/2024 7:01 AM EST Oxygen Saturation 94% 10/03/2024 7:01 AM EST Inhaled Oxygen Concentration 94% 10/03/2024 7 :01 AM EST Weight 143.4 kg (316 lb 1.6 oz) 024 12:30 AM EST Height 177.8 cm (5' 10 ) 09/30/2024 12: 30 AM EST Body Mass Index 45.36 09/30/2024 12:30 AM EST Plan of Treatment Health Maintenance Due Date Last Done Comments ASCVD Assessment 1961 Abnormal Colonoscopy Follow Up 1961 Diabetes Screening 1961 Hepatitis C Screening (MyChart) 1961 Lipid Panel 1961 Depression Screening 12/28/1979 Immunization: Hepatitis A (1 of 2 - Risk 2-dose series) 1980 Immunization: Pneumococcal ( 1 of 2 - PCV) 1980 Cologuard (FIT-DNA) 2006 Colonoscopy 2006 Colorectal Cancer Screening (MyChart) 2006 Stool Testing (gFOBT) 2006 Immunization: Zoster (1 of 2) 12/28/2011 Immunization: RSV (Adult) (1 - Risk 60-74 years 1-dose series) 2021 Immunization: COVID-19 ( season) 2024 09/03/2021, 08/12/2021, 02/08/2021 Immunization: DTaP/Tdap/Td ( 2 - Td or Tdap) 10/25/2024 10/25/2014 Immunization: Influenza (MyC earl) (#1) 2025 07/30/2024, 08/02/2022, 07/25/2022, Additional history exists Alcohol Misuse Screening 09/29/2025 09/29/2024 Renal Function/GFR 10/02/2025 10/02/2024, 0 10/02/2024, 10/02/2024, Additional history exists Immunization: Hepatitis B Completed 2015, 04/21/2015, 02/17/2015 HIV Screening Completed 09/30/2024 Procedures Procedure Name Priority Date/Time Associated Diagnosis Comments RENAL FUNCTION PANEL W/EGFR Routine 10/02/2024 4:10 AM EST HIV 1+2 ANTIBODY/ANTIGEN WITH REFLEX Routine 09/30/2024 5:37 PM EST from Last 3 Months or Most Recently Relevant to Health Maintenance Results * (ABNORMAL) Renal Function Panel w/EGFR (10/02/2024 4:10 AM EST) Sodium 140 133 - 146 mmol/L 10/02/2024 5:05 AM EST [facility] Potassium 3.6 3.5 - 5.3 mmol/L 10/02/2024 5:05 AM EST [facility] Chloride 105 98 - 110 mmol/L 10/02/2024 5:05 AM EST [facility] CO2 31 21 - 33 mmol/L 10/02/2024 5:05 AM EST [facility] Anion Gap 4 3 - 16 mmol/L 10/02/2024 5:05 AM EST [facility] BUN 20 7 - 25 mg/dL 10/02/2024 5:05 AM [facility] Creatinine 1.13 0.60 - 1.30 mg/dL 10/02/2024 5:05 AM [facility] Glucose 79 70 - 100 mg/dL 10/02/2024 5:05 AM EST [facility] Calcium 8.2(L) 8.6 - 10.3 mg/dL 10/02/2024 5:05 AM [facility] Phosphorus 3.2 2.1 - 4.7 mg/dL 10/02/2024 5:05 AM [facility] Albumin 3.0(L) 3.5 - 5.7 g/dL 10/02/2024 5:05 AM [facility] Osmolality, Calculated 292 278 - 305 mOsm/kg 10/02/2024 5:05 AM [facility] EGFR 73 10/02/2024 5:05 AM [facility] Comment:As of 2021, the estimated GFR is calculated using the 2020 Chronic Kidney Disease Epidemiology Collaboration (CKD-EPI) equation. In line with the NKF-ASN Task Force Recommendations, this equation does not include a coefficient for race. A single eGFR value is calculated for each patient. The reference interval is >60 mL/min/1.73m2. eGFR values greater than 90 will be reported as >90mL/min/1.73m2. Reference: Ranjan C, Tejas M, Juani DC, Cameron ND, Saloni ARCINIEGA, Yaz LA, et al. A Unifying Approach for GFR Estimation: Recommendations of the NKF-ASN Task Force on Reassessing the inclusion of Race in Diagnosing Kidney Disease. Am J Kidney Dis. 2020. Plasma 10/02/2024 4:10 AM EST 10/02/2024 4:32 AM EST us Petey Mast MD LAB BLOOD ORDERABLES Final Res ult [facility] [address] [place], [place] [address] * HIV 1+2 Antibody/Antigen with Reflex (09/30/2024 5:37 PM EST) HIV 1+2 AB/AGN Nonreactive Nonreactive 09/30/2024 8:51 PM EST [facility] Serum 09/30/2024 5:37 PM EST 09/30/2024 5:45 PM EST Narrative [facility] - 09/30/2024 8:51 PM EST HIV-1 p24 Antigen and HIV-1/HIV-2 Antibody not detected. us Cheryle DUDLEY LAB BLOOD ORDERABLES Final Result [facility] [address] [place] [id number], [facility] from Last 3 Months or Most Recently Relevant to Health Maintenance Insurance [address] [id number] [facility] MEDICARE PPO COMP MEDICAID [place] [facility] MEDICARE PPO COMP MEDICAID [place] Advance Directives For more information, please contact: [phone] * DNRCC-A (Latest Code Status on File) Date Activated Date Inactivated Comments 09/30/2024 12:48 AM 10/03/2024 7:08 PM Care Teams Throat Cutter Relationship Specialty Start Date End Date Unknown, Attending Provider PCP - General 09/29/24
--- OUTSIDE RECORDS SUMMARY | 2025-05-29 10:41 | XMS_ITS | Encounter Summary ---
Author Organization Healthcare Address [address] [place] [address] Care Team Providers Care Doors Prefitter Name Role Phone López Alicea MD Primary Care Provider [phone] Teresita Garcia LPN Unavailable Unavailabl e Slade Lennon Unavailable Teresita Garcia LPN Unavailable Unavailabl e Encounter Details Date Type Department Care Team (Late st Contact Info) Description 06/21/2024 Orders Only External Location [address] [place] [address] Provider, External Social History Tobacco Use Types [...] Description 06/03/2025 8:30 AM EDT Clinical Support [facility] [address] [place] [address] 06/03/2025 10:00 AM EDT Office Visit [facility] [address] [place] [address] Daniel Marques MD [address] [place] [address] documented as of this encounter Procedures Procedure Name Priority Date/Time Associated Diagnosis Comments US ABDOMEN OUTSIDE IMAGES 06/21/2024 8:27 AM EDT documented in this encounter Results * US ABDOMEN OUTSIDE IMAGES (06/21/2024 8:27 AM EDT) Anatomical Region Laterality Modality Ultrasound 06/21/2024 8:27 AM EDT us External Provider IMG US PROCEDURES Final Result documented in this encounter Visit Diagnoses Not on filedocumented in this encounter Care Teams Doors Prefitter Relationship Specialty Start Date End Date López Alicea MD [address] [place] [address] PCP - General 02/24/[address] [facility] TCM Nurse 03/04/25 04/03/25 Slade Lennon PA [address] [place] [address] Referring Physician Gastroenterology 03/19/[address] [facility] TCM Nurse 04/28/25 05/28/25 documented as of this encounter
--- OUTSIDE RECORDS SUMMARY | 2025-05-29 10:41 | XMS_ITS | Encounter Summary ---
Author Organization Healthcare Address [address] [place] [address] Care Team Providers Care Print Designer Name Role Phone López Alicea MD Primary Care Provider [phone] Teresita Garcia LPN Unavailable Unavailabl e Slade Lennon Unavailable Teresita Garcia LPN Unavailable Unavailabl e Encounter Details Date Type Department Care Team (Late st Contact Info) Description 10/17/2024 Orders Only External Location [address] [place] [address] Provider, External Social History Tobacco Use Types [...] Description 06/03/2025 8:30 AM EDT Clinical Support [facility] [address] [place] [address] 06/03/2025 10:00 AM EDT Office Visit [facility] [address] [place] [address] Daniel Marques MD [address] [place] [address] documented as of this encounter Procedures Procedure Name Priority Date/Time Associated Diagnosis Comments CT NEURO OUTSIDE IMAGES 10/17/2024 9:07 PM EST documented in this encounter Results * CT NEURO OUTSIDE IMAGES (10/17/2024 9:07 PM EST) Anatomical Region Laterality Modality Computed Tomogra phy 10/17/2024 9:07 PM EST us External Provider IMG CT PROCEDURES Final Result documented in this encounter Visit Diagnoses Not on filedocumented in this encounter Care Teams Print Designer Relationship Specialty Start Date End Date López Alicea MD [address] [place] [address] PCP - General 02/24/25 Teresita Garcia LPN [facility] TCM Nurse 03/04/25 04/03/25 Slade Lennon PA [address] [place] [address] Referring Physician Gastroenterology 03/19/25 Teresita Garcia LPN [facility] TCM Nurse 04/28/25 05/28/25 documented as of this encounter
--- OUTSIDE RECORDS SUMMARY | 2025-05-29 10:41 | XMS_ITS ---
Author Organization [facility] Address [address] [place] [address] Care Team Providers Care Typing Section Chief Name Role Phone López Alicea MD Primary Care Provider [phone] Slade Lennon Unavailable Transitional Care Management Status:Closed (Closed) Start date:04/28/2025 Enrollment date:04/28/2025 Enrollment reason:Identified using hospital discharge data End date:05/28/2025 Close reason:Patient graduated Overview This episode type is for outpatient care managers enrolling patients in the [facility] Transitional Care Management program. Continued Care and Services Coordination
--- OUTSIDE RECORDS SUMMARY | 2025-05-29 10:41 | XMS_ITS | Encounter Summary ---
Author Organization [facility] Address [address] [place] [address] Care Team Providers Care Outsole Skiver Name Role Phone López Alicea MD Primary Care Provider Encounter Details Date Type Department Care Team (Late st Contact Info) Description 04/29/2025 Transitional Care Management Telephone Encounter [facility] [address] [place] [address] Jane Mckinnon, RN Social History Tobacco [...] Note - Jane Mckinnon RN - 04/29/2025 3:15 PM EDT Images from the original note were not included. Call Center TCM Note Flowsheet Row Responses [facility] patient discharged from? Non-BH Does the patient have one of the following disease processes/diagnoses(primary or secondary)? Other TCM attempt successful? No [VR blank] Unsuccessful attempts Attempt 2 Jane Bhatia - Registered Nurse 04/29/2025, 15:17 EDT documented in this encounter Plan of Treatment Upcoming Encounters Date Type Department Care Team (Late st Contact Info) Description 08/01/2025 2:30 PM EDT Office Visit [facility] [address] [place] [address] López Alicea MD [address] [place] [address] documented as of this encounter Visit Diagnoses Not on filedocumented in this encounter Additional Health Concerns Assessment Noted Time PHQ-2 Depression Total Score: 1 11/09/19 24 11:34 AM EST documented as of this encounter Care Teams Outsole Skiver Relationship Specialty Start Date End Date López Alicea MD [address] [place] [address] PCP - General 07/16/15 documented as of this encounter
--- OUTSIDE RECORDS SUMMARY | 2025-05-29 10:41 | XMS_ITS | Encounter Summary ---
Author Organization Healthcare Address [address] [place] [address] Care Team Providers Care Therapist Radiation Name Role Phone López Alicea MD Primary Care Provider [phone] Teresita Garcia LPN Unavailable Unavailabl e Slade Lennon Unavailable Teresita Garcia LPN Unavailable Unavailabl e Encounter Details Date Type Department Care Team (Late st Contact Info) Description 11/22/2024 Orders Only External Location [address] [place] [address] Provider, External Social History Tobacco Use Types [...] Description 06/03/2025 8:30 AM EDT Clinical Support [facility] [address] [place] [address] 06/03/2025 10:00 AM EDT Office Visit [facility] [address] [place] [address] Daniel Marques MD [address] [place] [address] documented as of this encounter Procedures Procedure [...] on filedocumented in this encounter Care Teams Therapist Radiation Relationship Specialty Start Date End Date López Alicea MD [address] [place] [address] PCP - General 02/24/25 Teresita Garcia LPN [facility] TCM Nurse 03/04/25 04/03/25 Slade Lennon PA [address] [place] [address] Referring Physician Gastroenterology 03/19/25 Teresita Garcia LPN [facility] TCM Nurse 04/28/25 05/28/25 documented as of this encounter
--- OUTSIDE RECORDS SUMMARY | 2025-05-29 10:41 | XMS_ITS | Encounter Summary ---
Author Organization Healthcare Address [address] [place] [address] Care Team Providers Care Photographer Helper Name Role Phone López Alicea MD Primary Care Provider [phone] Teresita Garcia LPN Unavailable Unavailabl e Slade Lennon Unavailable Teresita Garcia LPN Unavailable Unavailabl e Encounter Details Date Type Department Care Team (Late st Contact Info) Description 11/22/2024 Orders Only External Location [address] [place] [address] Provider, External Social History Tobacco Use Types [...] Description 06/03/2025 8:30 AM EDT Clinical Support [facility] [address] [place] [address] 06/03/2025 10:00 AM EDT Office Visit [facility] [address] [place] [address] Daniel Marques MD [address] [place] [address] documented as of this encounter Procedures Procedure Name Priority Date/Time Associated Diagnosis Comments CT NEURO OUTSIDE IMAGES 11/22/2024 4:42 AM EST documented in this encounter Results * CT NEURO OUTSIDE IMAGES (11/22/2024 4:42 AM EST) Anatomical Region Laterality Modality Computed Tomogra phy 11/22/2024 4:42 AM EST us External Provider IMG CT PROCEDURES Final Result documented in this encounter Visit Diagnoses Not on filedocumented in this encounter Care Teams Photographer Helper Relationship Specialty Start Date End Date López Alicea MD [address] [place] [address] PCP - General 02/24/25 Teresita Garcia LPN [facility] TCM Nurse 03/04/25 04/03/25 Slade Lennon PA [address] [place] [address] Referring Physician Gastroenterology 03/19/25 Teresita Garcia LPN [facility] TCM Nurse 04/28/25 05/28/25 documented as of this encounter
--- OUTSIDE RECORDS SUMMARY | 2025-05-29 10:41 | XMS_ITS | Encounter Summary ---
Author Organization Healthcare Address [address] [address] Care Team Providers Care Arts Administrator Name Role Phone López Alicea MD Primary Care Provider [phone] Teresita Garcia LPN Unavailable Unavailabl e Slade Lennon Unavailable Teresita Garcia LPN Unavailable Unavailabl e Encounter Details Date Type Department Care Team (Late st Contact Info) Description 10/17/2024 Orders Only External Location [address] [place] [address] Provider, External Social History Tobacco Use Types [...] Description 06/03/2025 8:30 AM EDT Clinical Support [facility] [address] [address] 06/03/2025 10:00 AM EDT Office Visit [facility] [address] [address] Daniel Marques MD [address] [address] documented as of this encounter Procedures Procedure Name Priority Date/Time Associated Diagnosis Comments XR OUTSIDE IMAGES 10/17/2024 9:15 PM EST documented in this encounter Results * XR OUTSIDE IMAGES (10/17/2024 9:15 PM EST) Anatomical Region Laterality Modality Radiographic Lori ging 10/17/2024 9:15 PM EST us External Provider IMG XR PROCEDURES Final Result documented in this encounter Visit Diagnoses Not on filedocumented in this encounter Care Teams Arts Administrator Relationship Specialty Start Date End Date López Alicea MD [address] [place] [address] PCP - General 02/24/25 Teresita Garcia LPN [facility] TCM Nurse 03/04/25 04/03/25 Slade Lennon PA [address] [place] [address] Referring Physician Gastroenterology 03/19/25 Teresita Garcia LPN [facility] TCM Nurse 04/28/25 05/28/25 documented as of this encounter
--- OUTSIDE RECORDS SUMMARY | 2025-05-29 10:41 | XMS_ITS | Encounter Summary ---
Author Organization Healthcare Address [address] [place] [address] Care Team Providers Care Test Desk Trouble Locator Name Role Phone López Alicea MD Primary Care Provider [phone] Teresita Garcia LPN Unavailable Unavailabl e Slade Lennon Unavailable Teresita Garcia LPN Unavailable Unavailabl e Encounter Details Date Type Department Care Team (Late st Contact Info) Description 02/05/2025 Orders Only External Location [address] [place] [address] Provider, External Social History Tobacco Use Types [...] [facility] [address] [place] [address] 06/03/2025 10:00 AM EDT Office Visit [facility] [address] [place] [address] Daniel Marques MD [address] [place] [address] documented as of this encounter Procedures Procedure Name Priority Date/Time Associated Diagnosis Comments XR THORACIC OUTSIDE IMAGES 02/05/2025 12:52 AM EDT documented in this encounter Results * XR THORACIC OUTSIDE IMAGES (02/05/2025 12:52 AM EDT) Anatomical Region Laterality Modality Radiographic Lori ging 02/05/2025 12:5 2 AM EDT External Provider IMG XR PROCEDURES Final Result documented in this encounter Visit Diagnoses Not on filedocumented in this encounter Care Teams Test Desk Trouble Locator Relationship Specialty Start Date End Date López Alicea MD [address] [place] [address] PCP - General 02/24/25 Teresita Garcia LPN [facility] TCM Nurse 03/04/25 04/03/25 Slade Lennon PA [address] [place] [address] Referring Physician Gastroenterology 03/19/25 Teresita Garcia LPN [facility] TCM Nurse 04/28/25 05/28/25 documented as of this encounter
--- OUTSIDE RECORDS SUMMARY | 2025-05-29 10:41 | XMS_ITS | Encounter Summary ---
Author Organization [facility] Address [address] [place] [id number] Care Team Providers Care Environmental Health And Safety Leader Name Role Phone López Alicea MD Primary Care Provider [phone] Reason for Visit * Reason Comments Med Refill Encounter Details Date Type Department Care Team (Late Contact Info) Description 03/06/2025 Refill [facility] [address] [place] [address] Fito Garay MD [address] [place] [address] Chronic pain syndrome; Degeneration of intervertebral disc of lumbar region Social History Tobacco Use Types Packs/Day Years [...] Description 08/01/2025 2:30 PM EDT Office Visit [facility] [address] [facility] [place] [address] López Alicea MD [address] [place] [address] documented as of this encounter Visit Diagnoses Diagnosis Chronic pain syndrome Degeneration of intervertebral disc of lumbar region documented in this encounter Additional Health Concerns Assessment Noted Time PHQ-2 Depression Total Score: 1 11/09/19 24 11:34 AM EST documented as of this encounter Care Teams Environmental Health And Safety Leader Relationship Specialty Start Date End Date López Alicea MD [address] [place] [address] PCP - General 07/16/15 documented as of this encounter
--- OUTSIDE RECORDS SUMMARY | 2025-05-29 10:41 | XMS_ITS | Encounter Summary ---
Author Organization Healthcare Address [address] [place] [address] Care Team Providers Care Mine Expert Name Role Phone López Alicea MD Primary Care Provider [phone] Teresita Garcia LPN Unavailable Unavailabl e Slade Lennon Unavailable Teresita Garcia LPN Unavailable Unavailabl e Encounter Details Date Type Department Care Team (Late st Contact Info) Description 02/05/2025 Orders Only External Location [address] [place] [address] Provider, External Social History Tobacco Use Types [...] Description 06/03/2025 8:30 AM EDT Clinical Support [facility] [address] [place] [address] 06/03/2025 10:00 AM EDT Office Visit [facility] [address] [place] [address] Daniel Marques MD [address] [place] [address] documented as of this encounter Procedures Procedure Name Priority Date/Time Associated Diagnosis Comments CT MSK OUTSIDE IMAGES 02/05/2025 1:09 AM EDT documented in this encounter Results * CT MSK OUTSIDE IMAGES (02/05/2025 1:09 AM EDT) Anatomical Region Laterality Modality Computed Tomogra phy 02/05/2025 1:09 AM EDT External Provider IMG CT PROCEDURES Final Result documented in this encounter Visit Diagnoses Not on filedocumented in this encounter Care Teams Mine Expert Relationship Specialty Start Date End Date López Alicea MD [address] [place] [address] PCP - General 02/24/25 Teresita Garcia LPN [facility] TCM Nurse 03/04/25 04/03/25 Slade Lennon PA [address] [place] [address] Referring Physician Gastroenterology 03/19/25 Teresita Garcia LPN [facility] TCM Nurse 04/28/25 05/28/25 documented as of this encounter
--- OUTSIDE RECORDS SUMMARY | 2025-05-29 10:41 | XMS_ITS ---
Author Organization [facility] Address [address] [place] [address] Care Team Providers Care Bulk Plant Manager Name Role Phone López Alicea MD Primary Care Provider [phone] Slade Lennon Unavailable Transplant Episode Liver Candidate [facility] ([place] [place]) - [facility] Referred on 03/19/2025 Marked as Active on 03/19/2025 Liver CoordinatorKaity Braswell RN Fax: N/A Email: N/A Scores Score Value Updated Expires Exceptions/Shamika sons CPRA Not available MELD (Calc) 10 04/27/2025 Care Team Name Role Phone Fax Email Kaity Braswell RN Liver Coordinator [phone] N/A N/A López Alicea MD Primary Care Provider [phone] N/A LUIS ENRIQUE Rodríguez Referring Physician [phone] N/A Zeinab Miner LCSW Retail Visual Merchandiser [phone] N/A N/A Norman Rodney MD Surgeon [phone] N/A Events Pre-Transplant Referred: 03/19/2025 Committee: 04/28/2025 Appointments (04/28/2025 - 06/29/2025) When With Visit Type Description 06/03/2025 Transplant LAB 06/03/2025 Transplant - Bridger Marques Office [facility] - Transplant
--- OUTSIDE RECORDS SUMMARY | 2025-05-29 10:41 | XMS_ITS ---
Author Organization [facility] Address [address] [place] [address] Care Team Providers Care Feller Seam Operator Name Role Phone López Alicea MD Primary Care Provider [phone] Slade Lennon Unavailable Transitional Care Management Status:Closed (Closed) Start date:03/04/2025 Enrollment date:03/05/2025 Enrollment reason:Identified using hospital discharge data End date:04/03/2025 Close reason:Patient graduated Overview This episode type is for outpatient care managers enrolling patients in the [facility] Transitional Care Management program. Continued Care and Services Coordination
--- OUTSIDE RECORDS SUMMARY | 2025-05-29 10:41 | XMS_ITS | Encounter Summary ---
Author Organization Healthcare Address [address] [place] [address] Care Team Providers Care Project Development Engineer Name Role Phone López Alicea MD Primary Care Provider [phone] Teresita Garcia LPN Unavailable Unavailabl e Slade Lennon Unavailable Teresita Garcia LPN Unavailable Unavailabl e Encounter Details Date Type Department Care Team (Late st Contact Info) Description 08/26/2024 Orders Only External Location [address] [place] [address] Provider, External Social History Tobacco Use Types [...] Description 06/03/2025 8:30 AM EDT Clinical Support [facility] [address] [place] [address] 06/03/2025 10:00 AM EDT Office Visit [facility] [address] [place] [address] Daniel Marques MD [address] [place] [address] documented as of this encounter Procedures Procedure Name Priority Date/Time Associated Diagnosis Comments XR THORACIC OUTSIDE IMAGES 08/26/2024 2:33 PM EST documented in this encounter Results * XR THORACIC OUTSIDE IMAGES (08/26/2024 2:33 PM EST) Anatomical Region Laterality Modality Radiographic Lori ging 08/26/2024 2:33 PM EST us External Provider IMG XR PROCEDURES Final Result documented in this encounter Visit Diagnoses Not on filedocumented in this encounter Care Teams Project Development Engineer Relationship Specialty Start Date End Date López Alicea MD [address] [place] [address] PCP - General 02/24/[address] [facility] TCM Nurse 03/04/25 04/03/25 Slade Lennon PA [address] [place] [address] Referring Physician Gastroenterology 03/19/[address] [facility] TCM Nurse 04/28/25 05/28/25 documented as of this encounter
--- OUTSIDE RECORDS SUMMARY | 2025-05-29 10:41 | XMS_ITS | Encounter Summary ---
Author Organization Healthcare Address [address] [place] [address] Care Team Providers Care Forming Process Worker Name Role Phone López Alicea MD Primary Care Provider [phone] Teresita Garcia LPN Unavailable Unavailabl e Slade Lennon Unavailable Teresita Garcia LPN Unavailable Unavailabl e Encounter Details Date Type Department Care Team (Late st Contact Info) Description 01/17/2024 Orders Only External Location [address] [place] [address] Provider, External Social History Tobacco Use Types [...] Description 06/03/2025 8:30 AM EDT Clinical Support [facility] [address] [place] [address] 06/03/2025 10:00 AM EDT Office Visit [facility] [address] [place] [address] Daniel Marques MD [address] [place] [address] documented as of this encounter Procedures Procedure Name Priority Date/Time Associated Diagnosis Comments US ABDOMEN OUTSIDE IMAGES 01/17/2024 9:57 AM EDT documented in this encounter Results * US ABDOMEN OUTSIDE IMAGES (01/17/2024 9:57 AM EDT) Anatomical Region Laterality Modality Ultrasound 01/17/2024 9:57 AM EDT us External Provider IMG US PROCEDURES Final Result documented in this encounter Visit Diagnoses Not on filedocumented in this encounter Care Teams Forming Process Worker Relationship Specialty Start Date End Date López Alicea MD [address] [place] [address] PCP - General 02/24/25 Teresita Garcia LPN [facility] TCM Nurse 03/04/25 04/03/25 Slade Lennon PA [address] [place] [address] Referring Physician Gastroenterology 03/19/25 Teresita Garcia LPN [facility] TCM Nurse 04/28/25 05/28/25 documented as of this encounter
--- OUTSIDE RECORDS SUMMARY | 2025-05-29 10:41 | XMS_ITS | Encounter Summary ---
Author Organization Healthcare Address [address] [place] [address] Care Team Providers Care Contracting Analyst Name Role Phone López Alicea MD Primary Care Provider [phone] Teresita Garcia LPN Unavailable Unavailabl e Slade Lennon Unavailable Teresita Garcia LPN Unavailable Unavailabl e Encounter Details Date Type Department Care Team (Late st Contact Info) Description 11/22/2024 Orders Only External Location [address] [place] [address] Provider, External Social History Tobacco Use Types [...] [facility] [address] [place] [address] 06/03/2025 10:00 AM EDT Office Visit [facility] [address] [place] [address] Daniel Marques MD [address] [place] [address] documented as of this encounter Procedures Procedure Name Priority Date/Time Associated Diagnosis Comments CT NEURO OUTSIDE IMAGES 11/22/2024 4:48 AM EST documented in this encounter Results * CT NEURO OUTSIDE IMAGES (11/22/2024 4:48 AM EST) Anatomical Region Laterality Modality Computed Tomogra phy 11/22/2024 4:48 AM EST us External Provider IMG CT PROCEDURES Final Result documented in this encounter Visit Diagnoses Not on filedocumented in this encounter Care Teams Contracting Analyst Relationship Specialty Start Date End Date López Alicea MD [address] [place] [address] PCP - General 02/24/25 Teresita Garcia LPN [facility] TCM Nurse 03/04/25 04/03/25 Slade Lennon PA [address] [place] [address] Referring Physician Gastroenterology 03/19/25 Teresita Garcia LPN [facility] TCM Nurse 04/28/25 05/28/25 documented as of this encounter
--- OUTSIDE RECORDS SUMMARY | 2025-05-29 10:41 | XMS_ITS | Encounter Summary ---
Author Organization [facility] Address [address] [place] [id number] Care Team Providers Care Nurse Special Name Role Phone López Alicea MD Primary Care Provider Encounter Details Date Type Department Care Team (Late st Contact Info) Description 02/21/2025 Results Follow-Up [facility] [address] [place] [address] López Alicea MD [address] [place] [place] [address] Social History Tobacco Use Types [...] Description 08/01/2025 2:30 PM EDT Office Visit [facility] [address] [place] [address] López Alicea MD [address] [place] [address] documented as of this encounter Visit Diagnoses Not on filedocumented in this encounter Additional Health Concerns Assessment Noted Time PHQ-2 Depression Total Score: 1 11/09/19 24 11:34 AM EST documented as of this encounter Care Teams Nurse Special Relationship Specialty Start Date End Date López Alicea MD [address] [place] [address] PCP - General 07/16/15 documented as of this encounter
--- OUTSIDE RECORDS SUMMARY | 2025-05-29 10:41 | XMS_ITS | Encounter Summary ---
Author Organization Healthcare Address [address] [place] [address] Care Team Providers Care Soft Metals Engraver Hand Name Role Phone López Alicea MD Primary Care Provider [phone] Teresita Garcia LPN Unavailable Unavailabl e Slade Lennon Unavailable Teresita Garcia LPN Unavailable Unavailabl e Encounter Details Date Type Department Care Team (Late st Contact Info) Description 11/01/2024 Orders Only External Location [address] [place] [address] Provider, External Social History Tobacco Use Types [...] Description 06/03/2025 8:30 AM EDT Clinical Support [facility] [address] [place] [address] 06/03/2025 10:00 AM EDT Office Visit [facility] [address] [place] [address] Daniel Marques MD [address] [place] [address] documented as of this encounter Procedures Procedure Name Priority Date/Time Associated Diagnosis Comments CT OUTSIDE IMAGES 11/01/2024 1:13 PM EST documented in this encounter Results * CT OUTSIDE IMAGES (11/01/2024 1:13 PM EST) Anatomical Region Laterality Modality Computed Tomogra phy 11/01/2024 1:13 PM EST us External Provider IMG CT PROCEDURES Final Result documented in this encounter Visit Diagnoses Not on filedocumented in this encounter Care Teams Soft Metals Engraver Hand Relationship Specialty Start Date End Date López Alicea MD [address] [place] [address] PCP - General 02/24/25 Teresita Garcia LPN [facility] TCM Nurse 03/04/25 04/03/25 Slade Lennon PA [address] [place] [address] Referring Physician Gastroenterology 03/19/25 Teresita Garcia LPN [facility] TCM Nurse 04/28/25 05/28/25 documented as of this encounter
--- OUTSIDE RECORDS SUMMARY | 2025-05-29 10:41 | XMS_ITS | Encounter Summary ---
Author Organization [facility] Address [address] [place] [address] Care Team Providers Care Fuse Spooler Name Role Phone López Alicea MD Primary Care Provider [phone] Reason for Visit * Reason Onset Date Comments Medication Problem 04/09/2025 Encounter Details Date Type Department Care Team (Late st Contact Info) Description 04/09/2025 Telephone [facility] [address] [place] [address] López Alicea MD [address] [place] [address] Medication Problem Social History Tobacco Use Types Packs/Day Years [...] Telephone Encounter - López Alicea MD - 04/09/2025 3:54 PM EDT Please call, requested meds sent to pharmacy. Patricio reviewed 04/09/2025 . Follow up appt is scheduled on Visit date not found . Last office visit with me : 03/10/2025 * Telephone Encounter - Dasha Chan RegSched Rep - 04/09/2025 8:40 AM EDT Caller: Chema Hendrickson Relationship: Self Best call back number: [phone] Requested Prescriptions: Requested Prescriptions Pending Prescriptions Disp Refills oxyCODONE ER (OxyCONTIN) 40 MG 12 hr tablet 60 tablet 0 Sig: Take 1 tablet by mouth Every 12 (Twelve) Hours. oxyCODONE-acetaminophen (PERCOCET) 10-325 MG per tablet 90 tablet 0 Sig: Take 1 tablet by mouth Every 8 (Eight) Hours As Needed for Moderate Pain. Pharmacy where request should be sent: [facility] [place] [address] [address] - [phone] - [phone] FX Last office visit with prescribing clinician: [...] a voicemail: [] Yes [x] No Elroy Rios 04/09/25 08:42 EDT documented in this encounter Plan of Treatment Upcoming Encounters Date Type Department Care Team (Late st Contact Info) Description 08/01/2025 2:30 PM EDT Office Visit [facility] [address] [place] [address] López Alicea MD [address] [place] [address] documented as of this encounter Visit Diagnoses Diagnosis Chronic pain syndrome Degeneration of intervertebral disc of lumbar region documented in this encounter Additional Health Concerns Assessment Noted Time PHQ-2 Depression Total Score: 1 11/09/19 24 11:34 AM EST documented as of this encounter Care Teams Fuse Spooler Relationship Specialty Start Date End Date López Alicea MD [address] [place] [address] PCP - General 07/16/15 documented as of this encounter
--- OUTSIDE RECORDS SUMMARY | 2025-05-29 10:42 | XMS_ITS | Encounter Summary ---
Author Organization [facility] Address [address] [place] [id number] Care Team Providers Care Water Softener Servicer And Installer Name Role Phone López Alicea MD Primary Care Provider Encounter Details Date Type Department Care Team (Late st Contact Info) Description 12/23/2024 Results Follow-Up [facility] [address] [place] [address] López Alicea MD [address] [place] [address] Social History Tobacco Use Types [...] PM EDT Office Visit [facility] [address] [place] [address] López Alicea MD [address] [place] [address] documented as of this encounter Visit Diagnoses Not on filedocumented in this encounter Additional Health Concerns Assessment Noted Time PHQ-2 Depression Total Score: 1 11/09/19 24 11:34 AM EST documented as of this encounter Care Teams Water Softener Servicer And Installer Relationship Specialty Start Date End Date López Alicea MD [address] [place] [address] PCP - General 07/16/15 documented as of this encounter
--- OUTSIDE RECORDS SUMMARY | 2025-05-29 10:42 | XMS_ITS | Encounter Summary ---
Author Organization [facility] Address [address] [place] [id number] Care Team Providers Care Sales Floor Team Member Name Role Phone López Alicea MD Primary Care Provider Reason for Visit * Reason Onset Date Comments Med Refill 04/07/2025 Encounter Details Date Type Department Care Team (Late st Contact Info) Description 04/07/2025 Refill [facility] [address] [place] [address] López Alicea MD [address] [place] [address] Chronic pain syndrome; Degeneration of [...] Telephone Encounter - López Alicea MD - 04/07/2025 2:38 PM EDT Medication requested sent to pharmacy. * Telephone Encounter - Karla Acosta - 04/07/2025 2:19 PM EDT Called patient is taking this once a day. * Telephone Encounter - López Alicea MD - 04/07/2025 1:56 PM EDT Please call, requested meds sent to pharmacy. But please confirm before sending if he is taking the spironolactone once a day or twice a day? Patricio reviewed 04/07/2025 . Follow up appt is scheduled on Visit date not found . Last office visit with me : 03/10/2025 * Telephone Encounter - Jennifer Rick RegSched Rep - 04/07/2025 9:04 AM EDT REFILL REQUEST FOR FUROSEMIDE, GABAPENTIN AND SPIRONOLACTONE documented in this encounter Plan of Treatment Upcoming Encounters Date Type Department Care Team (Late st Contact Info) Description 08/01/2025 2:30 PM EDT Office Visit [facility] [address] [place] [address] López Alicea MD [address] [place] [address] documented as of this encounter Visit Diagnoses Diagnosis Chronic pain syndrome Degeneration of intervertebral disc of lumbar region documented in this encounter Additional Health Concerns Assessment Noted Time PHQ-2 Depression Total Score: 1 11/09/19 24 11:34 AM EST documented as of this encounter Care Teams Sales Floor Team Member Relationship Specialty Start Date End Date López Alicea MD [address] [place] [address] PCP - General 07/16/15 documented as of this encounter
--- OUTSIDE RECORDS SUMMARY | 2025-05-29 10:42 | XMS_ITS | Encounter Summary ---
Author Organization [facility] Address [address] [place] [phone] Care Team Providers Care Metal Window Frame Maker Name Role Phone López Alicea MD Primary Care Provider Encounter Details Date Type Department Care Team (Late st Contact Info) Description 01/25/2025 Results Follow-Up [facility] [address] [address] López Alicea MD [address] [place] [address] Social History Tobacco Use Types [...] Description 08/01/2025 2:30 PM EDT Office Visit [facility] [address] [place] [address] López Alicea MD [address] [place] [place] [address] documented as of this encounter Visit Diagnoses Not on filedocumented in this encounter Additional Health Concerns Assessment Noted Time PHQ-2 Depression Total Score: 1 11/09/19 24 11:34 AM EST documented as of this encounter Care Teams Metal Window Frame Maker Relationship Specialty Start Date End Date López Alicea MD [address] [place] [address] PCP - General 07/16/15 documented as of this encounter
[2025-05-29 11:08] LABS: Hematocrit 26.4 % (42.0-52.0); Hemoglobin 7.6 g/dL (14.1-18.0); Immature Granulocytes % 0.6 %; Mean Corpuscular HGB Conc 28.8 g/dL (31.8-35.4); Mean Corpuscular Hemoglobin 25.6 pg (27.0-31.2); Mean Corpuscular Volume 88.9 fl (80-94); Nucleated Red Blood Cells % 0 %; Platelet Count 72 K/mm3 (142-424); Red Blood Count 2.97 M/mm3 (4.60-6.20); Red Cell Distribution Width-SD 56.8 fL
[2025-05-29 11:17] LABS: INR 1.10 (0.9-1.1); Prothrombin Time 12.1 seconds (10.1-12.5)
[2025-05-29 11:31] LABS: Albumin Level 3.0 g/dl (3.5-5.0); Chloride 108 mmol/L (98-107); Potassium 3.9 mmoL/L (3.5-5.1)
[2025-05-29 11:34] LABS: Alanine Aminotransferase 18 U/L (12-78); Albumin/Globulin Ratio 1.0 (1.1-1.8); Alkaline Phosphatase 129 U/L (38-126); Aspartate Amino Transferase 47 U/L (17-59); Bilirubin,Total 0.6 mg/dl (0.2-1.3); Blood Urea Nitrogen 22 mg/dl (9-20); Calcium 8.1 mg/dl (8.4-10.2); Carbon Dioxide 28 mmol/L (22.0-30.0); Creatinine,Serum 0.90 mg/dl (0.66-1.25); Estimated Glomerular Filt Rate 85 ml/min (>60); GFR (African American) 103 ML/MIN (>60); Globulin 3.0 g/dL (1.3-3.2); Glucose 100 mg/dl (74-100); Iron 122 ug/dL (49-181); Total Protein,Serum 6.0 g/dl (6.3-8.2)
[2025-05-29 11:43] LABS: Total Iron Binding Capacity 423 ug/dL (261-462)
[2025-05-29 11:44] LABS: White Blood Count 1.7 K/mm3 (4.8-10.8)
[2025-05-29 12:08] LABS: Ferritin 37.7 ng/ml (17.9-464)
[2025-05-29 15:02] LABS: Hypochromasia 2+; Total Cells Counted 25
[2025-05-29 17:49] LABS: Anion Gap 2.9 mEq/L (5-15); Sodium 135 mmol/L (136-145)
== END 2025-05-29 23:59 | disposition home or self-care (01) ==
LOC: LAB 10:36
PROVIDERS: PCP Family Medicine; Visit Provider Physician Assistant
DX: K74.60 Unspecified cirrhosis of liver (principal); R19.7 Diarrhea, unspecified
CPT/HCPCS: 36415; 80053; 82105; 82728; 83540; 83550; 85007; 85025; 85610

== ENCOUNTER 2025-05-30 12:41 | Outpatient (CLI) | payer MEDICARE, MEDICAID, SELFPAY ==
--- OUTSIDE RECORDS SUMMARY | 2025-04-25 09:00 | XMS_ITS | Encounter Summary ---
Author Organization Healthcare Address [address] [place] [address] Care Team Providers Care Personnel Research Psychologist Name Role Phone López Alicea MD Primary Care Provider [phone] Slade Lennon Unavailable Reason for Visit * Consultation (Routine) - Closed Specialty Diagnoses / Procedures Referred By Contac t Referred To Contact Transplant Diagnoses End-stage liver disease (CMS/HCC) Norman Rodney MD [address] [facility] [address] [place] [phone] Phone: tel: fax: [facility] [address] [address] Phone: tel: fax: Referral ID Status Reason Start Date Expiration Date V isits Requested Visits Authorized [id number] Closed Specialty Services Required 03/19/2025 09/18/2026 1 1 Encounter Details Date Type Department Care Team (Late st Contact Info) Description 04/25/2025 9:00 AM EDT Office Visit [facility] [address] [facility] [address] [place] [address] Daniel Marques MD [address] [facility] [address] [place] [address] Anemia due to other cause, [...] any time in the past 12 m [facility], were you homeless or living in a retirement (including now)? No 02/27/2025 Utilities Answer Date [...] No 025 8:00 AM EDT Werner Chahal, SERVNADO 2. Non-Specific Active Suici sully Thoughts (Past [...] transplant consultation. He used to follow with [facility] but does not have candidates for live [...] currently on 40 Furosemide mg /day and [id number] mg/day ---- continue with the current dose [...] the treatment of underlying GAVE. Can consider nursing home nursing home Octreotide injections vs routine IV iron transfusions [...] Description 06/03/2025 8:30 AM EDT Clinical Support [facility] [address] [place] [address] 06/03/2025 10:00 AM EDT Office Visit [facility] [place] [address] [place] [address] Daniel Maqrues MD [address] [place] [address] documented as of this encounter [...] TEST ORDERABLES Final Result BLOOD BANK [address] documented in this encounter Visit Diagnoses [...] documented as of this encounter Care Teams Personnel Research Psychologist Relationship Specialty Start Date End Date López Alicea MD [address] [place] [address] PCP - General 02/24/25 Slade Lennon PA [facility] [place] [address] Referring Physician Gastroenterology 03/19/25 documented as of this encounter
--- OUTSIDE RECORDS SUMMARY | 2025-04-25 11:16 | XMS_ITS | Encounter Summary ---
Author Organization Healthcare Address [address] [id number] Care Team Providers Care [employer] Worker Name Role Phone López Alicea MD Primary Care Provider [phone] Slade Lennon Unavailable Reason for Referral * Transplant (Routine) - Authorized Specialty Diagnoses / Procedures Referred By Raffi caputo Referred To Contact Transplant Diagnoses Gastrointestinal hemorrhage with melena Ruslan Lucas MD [address] [place] [address] Phone: tel: fax: Referral ID Status Reason Start Date Expiration Date Visits Requested Visits Authorized [id number] Authorized Specialty Services Required 04/27/2025 10/27/2026 999 999 Reason for Visit * Auth/Cert (Routine) Specialty Diagnoses / Procedures Referred By Raffi caputo Referred To Contact Diagnoses GIB (gastrointestinal bleeding) Gastrointestinal hemorrhage with melena melena, GI bleed hgb 6.9 Ruslan Lucas MD [address] [place] [address] Phone: tel: fax: [facility] [address] [place] [id number] Phone: tel: Referral ID Status Reason Start Date Expiration Date Visits Re quested Visits Authorized [id number] 1 1 Encounter Details Date Type Department Care Team (Latest Contact Info) Description 04/25/2025 11:16 AM EDT - 04/27/2025 5:17 PM EDT Hospital Encounter [facility] [address] [place] [address] Allen Chen MD [address] [place] [address] Ruslan Lucas MD [address] [place] [address] Gastrointestinal hemorrhage with melena (Primary Dx) Discharge Disposition: Home or Self Care Social History Tobacco Use Types Packs/Day Years [...] money to buy more. Never true 02/28/20 25 Within the past 12 months, t he [...] any time in the past 12 [facility], were you homeless or living in a senior care (including now)? No 02/27/2025 Utilities Answer Date Recorded In the past 12 months has th e [employer], gas, oil, or water Damage [employer] threatened to shut off services in your home? No 02/27/2025 Sex and Gender Information Value Date Recorded Sex Assigned at Not on file Legal Sex Male 8:05 PM EDT Gender Identity Not on file Sexual Orientation Not on file documented as of this encounter Last Filed Vital Signs Vital Sign Reading Time Taken Comments Blood Pressure 106/67 04/27/2025 3:59 PM EDT Pulse 91 04/27/2025 3:59 PM EDT Temperature 36.9 C (98.5 F) 04/27/2025 3:59 PM EDT Respiratory Rate 18 04/26/2025 10:15 PM EDT Oxygen Saturation 95% 04/27/2025 3:59 PM EDT Inhaled Oxygen Concentration - - Weight 131 kg (289 lb 0.4 oz) 04/26/2025 8:57 AM EDT Height 180.3 cm (5' 10.98 ) 04/25/2025 1:26 PM E DT Body Mass Index 40.33 04/25/2025 1:26 PM EDT documented in this encounter Functional Status [...] days 04/25/2025 7:21 AM EDT Dominick Cornelius A Feeling tired or having yue le energy Several days 04/25/2025 7:21 AM EDT Dominick Cornelius A Poor appetite or overeating Not at all 04/25/2025 7: 21 AM EDT Dominick Cornelius A Feeling bad about yourself - or that you are a failure or have let yourself or your family down Several days 04/25/2025 7:21 AM EDT Dominick Mario A Trouble concentrating on thi ngs, such as reading the newspaper or watching television Not at all 04/25/2025 7:21 AM EDT Dominick Cornelius A Moving or speaking so slowly that other people could have noticed? Or the opposite - being so fidgety or restless that you have been moving around a lot more than usual. Not at all 04/25/2025 7:21 AM EDT Dominick Cornelius Thoughts that you would be b valente off or hurting yourself in some way Not at all 04/25/2025 7:21 AM EDDominick Wood Patient Health Questionnaire -9 Score 5 04/25/2025 7:21 AM EDT Dominick Cornelius * Calculated C-SSRS Risk Score (Lifetime/Recent) Answer Date of Assessment Author No Risk Indicated 04/27/2025 8:00 AM EDT Werner Chahal, RN * If you checked off any problems on this questionnaire so far, Question Answer Date of Assessment Author How difficult have these problems made it for you to do your work, take care of things at home, or get along with other people? Somewhat difficult 04/25/2025 7:21 AM EDT Brooklyn Cornelius A * Question Answer Date of Assessment Author 1. Wish to be (Past 1 Month) No 025 8:00 AM EDT Werner Chahal, RN 2. Non-Specific Active Suici sully Thoughts (Past 1 Month) No 04/27/2025 8:00 AM EDT Werner Chahal, RN 6. Suicidal Behavior (Lifetime) No 8:00 AM EDT Werner Chahal, RN documented as of this encounter Medications at Time of Discharge allopurinol (Zyloprim) 300 MG tablet Take 1 tablet by mouth daily. amLODIPine (Norvasc) 10 MG tablet Take 1 tablet by mouth daily. buPROPion SR (Wellbutrin SR) 150 MG 12 hr tablet Take 1 tablet by mouth daily. Do not crush, chew, or split. busPIRone (Buspar) 10 MG tablet Take 2 tablets by mouth 2 times a day. colchicine (Colcrys) 0.6 MG tablet Take 1 tablet by mouth daily. ferrous sulfate 325 (65 Fe) MG tablet Take 1 tablet by mouth 3 times a day with meals for 60 days, THEN 1 tablet daily with breakfast. 240 tablet 04/27/2025 08/25/2025 furosemide (Lasix) 20 MG tablet Take 1 tablet by mouth daily. 30 tablet 1 04/27/2025 06/26/2025 gabapentin (Neurontin) 400 MG capsule Take 2 capsules by mouth 3 times a day. 180 capsule 1 04/27/2025 06/26/2025 hydrOXYzine HCl (Atarax) 50 MG tablet Take 1 tablet by mouth every 6 hours as needed for itching. OLANZapine (ZyPREXA) 5 MG tablet Take 1 tablet by mouth nightly. oxyCODONE-acetam inophen (Percocet) 10-325 MG tablet 1 tablet every 8 hours as needed for severe pain. OxyCONTIN 40 MG 12 hr tablet Take 1 tablet by mouth 2 times a day. 05/12/2015 pantoprazole (Protonix) 40 MG EC tablet Take 1 tablet by mouth 2 times a day before meals. Do not crush, chew, or split. 60 tablet 1 04/27/2025 06/26/2025 promethazine (Phenergan) 25 MG tablet Take 1/2 to 1 tablet ever 6 hours as needed for nausea or vomiting. sertraline (Zoloft) 100 MG tablet Take 2 tablets by mouth daily. spironolactone (Aldactone) 50 MG tablet Take 1 tablet by mouth daily. 30 each 1 04/28/2025 06/27/2025 SUMAtriptan (Imitrex) 100 MG tablet TAKE 1/2 TO 1 TABLET BY MOUTH AT ONSET OF HEADACHE, MAY REPEAT DOSE ONCE IN 2 HOURS IF NO RELIEF. tamsulosin (Flomax) 0.4 MG 24 hr capsule Take 1 capsule by mouth nightly. tiZANidine (Zanaflex) 4 MG tablet Take 1 tablet by mouth 2 times a day as needed for muscle spasms. levoFLOXacin (Levaquin) 500 MG tabletIndication s:Gastrointestin al hemorrhage with melena Take 1 tablet by mouth daily for 5 days. 5 tablet 04/28/2025 05/03/2025 documented as of this encounter Miscellaneous Notes * Werner Vo, RN - 04/27/2025 3:59 PM EDT Images from the original note were not included. [id number] Discharge Instructions for Liver Cirrhosis You have been diagnosed with cirrhosis of the liver. This is a long-term (chronic) problem. It occurs when liver tissue is destroyed and replaced by scar tissue. Causes of cirrhosis include: ? Infection, such as viral hepatitis. ? Chronic alcoholism. ? The body?s immune system attacking healthy cells (autoimmune disorders). ? Obesity, diabetes, high blood pressure, and high cholesterol. ? Medicine side effects. ? Genetic diseases. Sometimes the exact cause is unknown. You may not have any symptoms at first. Or your symptoms may be mild. But they usually get worse. Cirrhosis is likely to occur if you have a history of long-termalcohol abuse. Cirrhosis can?t be cured but may improve with treatments. Treatment choices depend on the cause and extent of liver damage. The goals are to prevent further damage and prevent complications. Home care Alcohol ? People with cirrhosis should not drink alcohol. If you stop drinking, you may feel better and live longer. Even if cirrhosis is not from alcohol, alcohol may cause the liver disease to get worse. ? If you are a chronic alcohol user, you will have withdrawal symptoms. Talk with your health care provider for more information. ? If alcohol is a problem, ask your provider about medicine that can help you quit drinking. ? Find a local Alcoholics Anonymous support group online at www.aa.org/. Diet ? Ask your provider what kind of diet you should follow. You may be asked to limit or not eat certain foods. Don't limit your lean protein intake. ? Weigh yourself daily and keep a weight log. If you have a sudden change in weight, call your provider. ? Cut back on salt. o Limit canned, dried, packaged, and fast foods. o Don?t add salt to your food at the table. o Season foods with herbs instead of salt when you cook. Medicines, supplements, and vaccines ? Take your medicines exactly as directed. ? Talk with your provider before taking vitamins, blll-zkq-kphcehd medicines, or herbal supplements. Some supplements may be toxic to the liver. Pain medicines called NSAIDs (nonsteroidal anti-inflammatory drugs), such as ibuprofen, can harm the kidneys if you have cirrhosis. ? Don't take aspirin or other blood-thinning medicines unless directed by your provider. ? Discuss vitamin supplements and deficiencies with your provider. ? Ask your provider about getting vaccines for viruses that can cause liver diseases. ? Control any underlying conditions that may cause cirrhosis or make it worse. These include diabetes, obesity, high blood pressure, and high cholesterol and high triglycerides. See your provider regularly. Follow-up care Follow up with your health care provider as advised. You will likely have the following tests: ? Lab tests ? Blood tests for liver cancer ? Ultrasound or MRI scan of your liver every 6 months ? Endoscopy to check for swollen veins (varices) in your digestive tract ? Other tests and medicines as needed if the cirrhosis gets worse. When to contact your doctor Call your health care provider or get medical care right away if you have any of the following: ? Fever of 100.4??F ( 38??C) or higher, or as directed by your provider ? Extreme tiredness (fatigue), weakness, or lack of appetite ? Vomiting (with or without blood) ? Yellowing of your skin or eyes (jaundice) ? Itching ? Swelling in your belly or legs ? Black or tarry stools ? Skin that bruises easily ? Confusion or trouble thinking clearly Last Reviewed Date: 2024 00:00:00 ?? [id number] [employer]. All rights reserved. This information is not intended as a substitute for professional medical care. Always follow your healthcare professional's instructions. * Discharge Summary - Ruslan Lucas MD - 04/27/2025 3:39 PM EDT Images from the original note were not included. Hospitalization Admit Date/Time: 04/25/2025 11:16 AM Admitting Attending: Ruslan Lucas Discharge Date: 04/27/25 Discharge Attending Physician: Ruslan Lucas MD PCP name and Address: López Alicea MD [address] [facility] / [facility] [address] Referring provider name and address: Daniel Marques MD [address] [facility] [address] [place] [address] Chief Concern, Brief History of Present Illness, and Hospital Course Chema Hendrickson is a 64 y.o. 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 Previously, he had severe hemorrhagic shock requiring emergency ICU care and multiple transfusions at the [facility] September 2024. He has had previous endoscopy and esophageal banding. He is undergoing evaluation b y the liver transplant team for candidacy for liver transplant. He was seen in the clinic today. Hewas weak and routine laboratory data showed that he had anemia with hemoglobin 6.9 grams/deciliter and he was admitted to the hospital directly from clinic. He describes some epigastric abdominal pain which she describes as [id number]. He denies hematemesis although he has some nausea. He denies bright red blood per rectum and he describes that he has black stools ???off and on. ?? he reports that his stools has been formed and they are not watery. He denies high fever, soaking sweats orshaking chills. He denies chest pain or shortness for breath. He reports that he avoids red meat because he finds that it feels heavy and disagreeable. He is not a strict vegetarian and reports that he can eat eggs and chicken without problems. Today his MELD score was calculated at 8. He has a history of nodular GAVE. He underwent EGD earlier this month that showed stigmata of recent hemorrhage and he had banding x5. He had grade [address] scan in January showed cirrhotic liver morphology with no masses concerning for hepatocellular carcinoma. He reports that he has not been feeling well recently. He reports that he had lightheadedness, dizziness and a syncopal/fainting episode. This was about 1 week ago. During that time, he fell and he injured his right foot specifically his right 3rd and 4th toes and he wonders if he could have brokenhis toes. He denies active lightheadedness or dizziness, confusion or palpitations currently His only other health problems are depression, migraine headaches and obesity. 04/26/2025: Pt is asking for pain medication. Nurse states Looks like he takes home meds of oxycontin 40mg twice a day, zyprexa 5mg,atarax 50mg q6 and zanaflex 4mg twice a day. Pt told nurse he takes oxy 10 mg bid and percocet 10 /325 3 times daily. he says he will withdraw without them. 04/27/2025: No issues overnight. Vital signs reviewed. This AM, Vital signs WNL. Finished with Lasix IV push. Started on Lasix 20 mg PO Daily. Stable for DC. 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 Gastrointestinal bleeding: History of GAVE, PERALTA cirrhosis with CKD and black stool. EGD done on 04/25/2025 show no active bleeding, placed 4 bands on nodular GAVE. S/p PRBC 2 units Hgb and Hct Q12h Protonix pantoprazole 40 mg IV BID Follow up Stool GI consult, appreciate recs Severe Back Pain: Pt had severe back pain. PRN Zanaflex tizanidine 4 mg PO BID PRN OxyCONTIN oxycodone ER 40 mg PO BID Roxicodone oxyCODONE 10 PO TID AC Generalized Anxiety Disorder: Wellbutrin SR bupropion 150 mg PO Daily Buspar buspirone 20 mg PO BID Zoloft sertraline 100 mg PO Daily Zyprexa olanzapine 5 mg PO Daily PERALTA decompensated Cirrhosis with Hepatic Encephalopathy: MELD 3.0: 10 at 04/27/2025 6:08 AM MELD-Na: 10 at 04/27/2025 6:08 AM Calculated from: Serum Creatinine: 1.21 mg/dL at 04/27/2025 6:08 AM Serum Sodium: 140 mmol/L (Using max of 137 mmol/L) at 04/27/2025 6:08 AM Total Bilirubin: 0.9 mg/dL (Using min of 1 mg/dL) at 04/26/2025 8:30 AM Serum Albumin: 3.3 g/dL at 04/26/2025 8:30 AM INR(ratio): 1.2 at 04/25/2025 9:17 PM Age at listing (hypothetical): 64 years Sex: Male at 04/27/2025 6:08 AM Lasix furosemide 40 IV P Q8h for 6 doses--> Lasix furosemide 20 mg PO Daily Aldactone spironolactone 50 mg PO Daily BPH: C/w Flomax tamsulosin 0.4 mg PO at bedtime. Monitor I&Os. FENGI: Regular GI Soft DVT prophylaxis: NONE SCD GI prophylaxis: Protonix pantoprazole 40 mg IV P BID Code status: Full Code Surgeries and Procedures Medication List .. allopurinol 300 MG tablet Commonly known as: Zyloprim Take 1 tablet by mouth daily. buPROPion SR 150 MG 12 hr tablet Commonly known as: Wellbutrin SR Take 1 tablet by mouth daily. Do not crush, chew, or split. busPIRone 10 MG tablet Commonly known as: Buspar Take 2 tablets by mouth 2 times a day. colchicine 0.6 MG tablet Commonly known as: Colcrys Take 1 tablet by mouth daily. hydrOXYzine HCl 50 MG tablet Commonly known as: Atarax Take 1 tablet by mouth every 6 hours as needed for itching. levoFLOXacin 500 MG tablet Commonly known as: Levaquin Take 1 tablet by mouth daily for 5 days. Start taking on: April 28, 2025 OLANZapine 5 MG tablet Commonly known as: ZyPREXA Take 1 tablet by mouth nightly. OxyCONTIN 40 MG 12 hr tablet Generic drug: oxyCODONE ER Take 1 tablet by mouth 2 times a day. * pantoprazole 40 MG EC tablet Commonly known as: Protonix Take 1 tablet by mouth daily before breakfast. Do not crush, chew, or split. * pantoprazole 40 MG EC tablet Commonly known as: Protonix Take 1 tablet by mouth 2 times a day before meals. Do not crush, chew, or split. promethazine 25 MG tablet Commonly known as: Phenergan Take 1/2 to 1 tablet ever 6 hours as needed for nausea or vomiting. sertraline 100 MG tablet Commonly known as: Zoloft Take 2 tablets by mouth daily. spironolactone 50 MG tablet Commonly known as: Aldactone Take 1 tablet by mouth daily. Start taking on: April 28, 2025 SUMAtriptan 100 MG tablet Commonly known as: Imitrex TAKE 1/2 TO 1 TABLET BY MOUTH AT ONSET OF HEADACHE, MAY REPEAT DOSE ONCE IN 2 HOURS IF NO RELIEF. tamsulosin 0.4 MG 24 hr capsule Commonly known as: Flomax Take 1 capsule by mouth nightly. tiZANidine 4 MG tablet Commonly known as: Zanaflex Take 1 tablet by mouth 2 times a day as needed for muscle spasms. * This list has 2 medication(s) that are the same as other medications prescribed for you. Read thedirections carefully, and ask your doctor or other care provider to review them with you. . amLODIPine 10 MG tablet Commonly known as: Norvasc Take 1 tablet by mouth daily. * ferrous sulfate 325 (65 Fe) MG tablet Take 1 tablet by mouth 2 times a day. Ask about: Which instructions should I use? * ferrous sulfate 325 (65 Fe) MG tablet Take 1 tablet by mouth 3 times a day with meals for 60 days, THEN 1 tablet daily with breakfast. Start taking on: April 27, 2025 Ask about: Which instructions should I use? * furosemide 20 MG tablet Commonly known as: Lasix Take 1 tablet by mouth daily. Ask about: Which instructions should I use? * furosemide 40 MG tablet Commonly known as: Lasix Take 0.5 tablets by mouth daily. Ask about: Which instructions should I use? * gabapentin 800 MG tablet Commonly known as: Neurontin Take 1 tablet by mouth 3 times a day. Ask about: Which instructions should I use? * gabapentin 400 MG capsule Commonly known as: Neurontin Take 2 capsules by mouth 3 times a day. Ask about: Which instructions should I use? oxyCODONE-acetaminophen 10-325 MG tablet Commonly known as: Percocet 1 tablet every 8 hours as needed for severe pain. * This list has 6 medication(s) that are the same as other medications prescribed for you. Read thedirections carefully, and ask your doctor or other care provider to review them with you. Where to Get Your Medications These medications were sent to [facility] - [place], [place] - [address], [facility] [id number] ferrous sulfate 325 (65 Fe) MG tablet furosemide 40 MG tablet gabapentin 400 MG capsule levoFLOXacin 500 MG tablet pantoprazole 40 MG EC tablet spironolactone 50 MG tablet Discharge Diagnosis Medical Problems Active and Resolved Hospital Problems Hospital Class III obesity with body mass index (BMI) of 40.0 or higher (CMS/HCC) * (Principal) GIB (gastrointestinal bleeding) Other cirrhosis of liver (CMS/HCC) Right foot pain Generalized edema Gastrointestinal hemorrhage with melena Post Discharge Instructions PCP and GI Outpatient Follow-Up No future appointments. Test Results Pending At Discharge Pertinent Physical Exam At Time of Discharge Physical Exam Vitals reviewed. Constitutional: Appearance: He is normal weight. Eyes: General: No scleral icterus. Extraocular Movements: Extraocular movements intact. Pupils: Pupils are equal, round, and reactive to light. Cardiovascular: Rate and Rhythm: Normal rate. Pulmonary: Effort: Pulmonary effort is normal. Abdominal: General: There is distension. Palpations: Abdomen is soft. There is no mass. Tenderness: There is no abdominal tenderness. Musculoskeletal: General: Normal range of motion. Cervical back: Normal range of motion. Skin: General: Skin is warm. Capillary Refill: Capillary refill takes less than 2 seconds. Neurological: General: No focal deficit present. Mental Status: He is alert and oriented to person, place, and time. Mental status is at baseline. Discharge Disposition/Condition Disposition: Home Condition: Stable (s/sx potential problems absent or manageable) I spent >30 minutes of patient care and instruction time in preparation for this discharge. * Progress Notes - Mita Quintero - 04/27/2025 2:11 PM EDT Case Management Adult Progress Note Chema Hendrickson 64 y.o. male CSN: [id number] Admission: 04/25/2025 11:16 AM Primary Problem: GIB (gastrointestinal bleeding) Anticipated Discharge Date: 04/27/25 Has Discharge Plans Changed? No Medicare Second Notice: Housing Circumstances: Not Applicable Housing Circumstances Action Taken: Other na Medically Ready for Discharge: Ready Now Additional Comments Pt is ready for discharge. SW requested to asissit with arranging Lyft ride. PT meets 300%FPG. No other discharge needs identified. SW will remain available through discharge if any other needs arise. Mita Quintero [employer], [employer] Social Work Case Management * Care Plan - Werner Chahal RN - 04/27/2025 10:13 AM EDT Problem: Adult Inpatient Plan of Care Goal: Plan of Care Review Outcome: Ongoing, Progressing Flowsheets (Taken 04/27/2025 0800) Progress: improving Plan of Care Reviewed With: patient Goal: Patient-Specific Goal (Individualized) Outcome: Ongoing, Progressing Flowsheets (Taken 04/27/2025 0800) Patient/Family-Specific Goals (Include Timeframe): pt will remain free from falls/injury today Individualized Care Needs: safety Anxieties, Fears or Concerns: n/a Goal: Absence of Hospital-Acquired Illness or Injury Outcome: Ongoing, Progressing Goal: Optimal Comfort and Wellbeing Outcome: Ongoing, Progressing Intervention: Provide Person-Centered Care Flowsheets (Taken 04/27/2025 1012) Trust Relationship/Rapport: care explained choices provided emotional support provided empathic listening provided reassurance provided thoughts/feelings acknowledged Goal: Readiness for Transition of Care Outcome: Ongoing, Progressing Problem: Fall Injury Risk Goal: Absence of Fall and Fall-Related Injury 04/27/2025 1013 by Werner Chahal, RN Outcome: Ongoing, Progressing 04/27/2025 1012 by Werner Chahal, RN Outcome: Ongoing, Progressing Intervention: Promote Injury-Free Environment Flowsheets (Taken 04/27/2025 1013) Safety Promotion/Fall Prevention: activity supervised assistive device/personal items within reach clutter-free environment maintained fall prevention program maintained lighting adjusted nonskid shoes/slippers when out of bed room organization consistent safety round/check completed Problem: Pain Acute Goal: Optimal Pain Control and Function Outcome: Ongoing, Progressing Intervention: Prevent or Manage Pain Flowsheets (Taken 04/27/2025 1012) Bowel Elimination Promotion: adequate fluid intake promoted ambulation promoted diet adjusted privacy promoted Problem: Skin Injury Risk Increased Goal: Skin Health and Integrity Outcome: Ongoing, Progressing Intervention: Promote and Optimize Oral Intake Flowsheets (Taken 04/27/2025 1012) Oral Nutrition Promotion: physical activity promoted rest periods promoted * Hospital Course - Ruslan Lucas MD - 04/27/2025 8:20 AM EDT Chema Hendrickson is a 64 y.o. 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 Previously, he had severe hemorrhagic shock requiring emergency ICU care and multiple transfusions at the [facility] September 2024. He has had previous endoscopy and esophageal banding. He is undergoing evaluation b y the liver transplant team for candidacy for liver transplant. He was seen in the clinic today. Hewas weak and routine laboratory data showed that he had anemia with hemoglobin 6.9 grams/deciliter and he was admitted to the hospital directly from clinic. He describes some epigastric abdominal pain which she describes as [id number]. He denies hematemesis although he has some nausea. He denies bright red blood per rectum and he describes that he has black stools ???off and on. ?? he reports that his stools has been formed and they are not watery. He denies high fever, soaking sweats orshaking chills. He denies chest pain or shortness for breath. He reports that he avoids red meat because he finds that it feels heavy and disagreeable. He is not a strict vegetarian and reports that he can eat eggs and chicken without problems. Today his MELD score was calculated at 8. He has a history of nodular GAVE. He underwent EGD earlier this month that showed stigmata of recent hemorrhage and he had banding x5. He had grade [address] scan in January showed cirrhotic liver morphology with no masses concerning for hepatocellular carcinoma. He reports that he has not been feeling well recently. He reports that he had lightheadedness, dizziness and a syncopal/fainting episode. This was about 1 week ago. During that time, he fell and he injured his right foot specifically his right 3rd and 4th toes and he wonders if he could have brokenhis toes. He denies active lightheadedness or dizziness, confusion or palpitations currently His only other health problems are depression, migraine headaches and obesity. 04/26/2025: Pt is asking for pain medication. Nurse states Looks like he takes home meds of oxycontin 40mg twice a day, zyprexa 5mg,atarax 50mg q6 and zanaflex 4mg twice a day. Pt told nurse he takes oxy 10 mg bid and percocet 10 /325 3 times daily. he says he will withdraw without them. 04/27/2025: No issues overnight. Vital signs reviewed. This AM, Vital signs WNL. Finished with Lasix IV push. Started on Lasix 20 mg PO Daily. Stable for DC. 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 Gastrointestinal bleeding: History of GAVE, PERALTA cirrhosis with CKD and black stool. EGD done on 04/25/2025 show no active bleeding, placed 4 bands on nodular GAVE. S/p PRBC 2 units Hgb and Hct Q12h Protonix pantoprazole 40 mg IV BID Follow up Stool GI consult, appreciate recs Severe Back Pain: Pt had severe back pain. PRN Zanaflex tizanidine 4 mg PO BID PRN OxyCONTIN oxycodone ER 40 mg PO BID Roxicodone oxyCODONE 10 PO TID AC Generalized Anxiety Disorder: Wellbutrin SR bupropion 150 mg PO Daily Buspar buspirone 20 mg PO BID Zoloft sertraline 100 mg PO Daily Zyprexa olanzapine 5 mg PO Daily PERALTA decompensated Cirrhosis with Hepatic Encephalopathy: MELD 3.0: 10 at 04/27/2025 6:08 AM MELD-Na: 10 at 04/27/2025 6:08 AM Calculated from: Serum Creatinine: 1.21 mg/dL at 04/27/2025 6:08 AM Serum Sodium: 140 mmol/L (Using max of 137 mmol/L) at 04/27/2025 6:08 AM Total Bilirubin: 0.9 mg/dL (Using min of 1 mg/dL) at 04/26/2025 8:30 AM Serum Albumin: 3.3 g/dL at 04/26/2025 8:30 AM INR(ratio): 1.2 at 04/25/2025 9:17 PM Age at listing (hypothetical): 64 years Sex: Male at 04/27/2025 6:08 AM Lasix furosemide 40 IV P Q8h for 6 doses--> Lasix furosemide 20 mg PO Daily Aldactone spironolactone 50 mg PO Daily BPH: C/w Flomax tamsulosin 0.4 mg PO at bedtime. Monitor I&Os. FENGI: Regular GI Soft DVT prophylaxis: NONE SCD GI prophylaxis: Protonix pantoprazole 40 mg IV P BID Code status: Full Code * Care Plan - Lakshmi Bustamante RN - 04/27/2025 5:00 AM EDT Problem: Adult Inpatient Plan of Care Goal: Plan of Care Review Outcome: Ongoing, Progressing Flowsheets Taken 04/26/2025 0927 by Loida Hernandez Outcome Evaluation: Patient remains free from falls this shift. Awaiting MD orders for possible change to pain medications due to patient increase in pain Taken 04/26/2025 0232 by Joanne Priest, RN Progress: improving Taken 04/25/2025 1356 by Alicia Woo Plan of Care Reviewed With: patient Goal: Patient-Specific Goal (Individualized) Outcome: Ongoing, Progressing Goal: Absence of Hospital-Acquired Illness or Injury Outcome: Ongoing, Progressing Goal: Optimal Comfort and Wellbeing Outcome: Ongoing, Progressing Goal: Readiness for Transition of Care Outcome: Ongoing, Progressing Intervention: Mutually Develop Transition Plan Flowsheets (Taken 04/27/2025 0739) Equipment Currently Used at Home: walker, rolling shower chair Current Outpatient/Agency/Support Group: clinic(s) Concerns to be Addressed: home safety Patient/Family Anticipated Services at Transition: outpatient care Patient/Family Anticipates Transition to: home Problem: Fall Injury Risk Goal: Absence of Fall and Fall-Related Injury Outcome: Ongoing, Progressing Problem: Pain Acute Goal: Optimal Pain Control and Function Outcome: Ongoing, Progressing Intervention: Develop Pain Management Plan Flowsheets (Taken 04/27/2025 0739) Pain Management Interventions: medication (see MAR) * Care Plan - Loida Hernandez - 04/26/2025 9:31 AM EDT Problem: Adult Inpatient Plan of Care Goal: Plan of Care Review Outcome: Ongoing, Progressing Flowsheets Taken 04/26/2025926 by Loida Hernandez Outcome Evaluation: Patient remains free from falls this shift. Awaiting MD orders for possible change to pain medications due to patient increase in pain. Patient will continue to verbalize to RN pain scores this shift. Progress: improving Plan of Care Reviewed With: patient Goal: Patient-Specific Goal (Individualized) Outcome: Ongoing, Progressing Flowsheets (Taken 04/26/2025799) Patient/Family-Specific Goals (Include Timeframe): Pt to report ease of pain with scheduled pain medications, Pt to remain free form falls this shift.Continue to cluster care Individualized Care Needs: Ease of pain or discomfort this shift, free from falls, comfort and rest Anxieties, Fears or Concerns: pain control Goal: Absence of Hospital-Acquired Illness or Injury Outcome: Ongoing, Progressing Intervention: Identify and Manage Fall Risk Flowsheets (Taken 04/26/2025926) Safety Promotion/Fall Prevention: activity supervised fall prevention program maintained lighting adjusted mobility aid in reach clutter-free environment maintained nonskid shoes/slippers when out of bed room organization consistent safety round/check completed toileting scheduled Intervention: Prevent Skin Injury Flowsheets Taken 04/26/2025926 Skin Protection: protective footwear used incontinence pads utilized Taken 04/26/2025799 Body Position: weight shifting, patient encouraged to change positions frequently and ambulate often Intervention: Prevent and Manage VTE (Venous Thromboembolism) Risk Flowsheets (Taken 04/26/2025799) VTE Prevention/Management: bilateral SCDs (sequential compression devices) on, Patient encouraged to ambulate frequently and continue VTE medications when SCD's are off Intervention: Prevent Infection Flowsheets (Taken 04/26/2025926) Infection Prevention: environmental surveillance performed hand hygiene promoted rest/sleep promoted single patient room provided, Hand hygiene promoted and patient encouraged to use hand customer support representative often - Monitor vitals and labs. Patient remains afebrile this shift. Goal: Optimal Comfort and Wellbeing Outcome: Ongoing, Progressing Intervention: Monitor Pain and Promote Comfort Flowsheets (Taken 04/26/2025920) Pain Management Interventions: (MD Lucas notified to come to bedside and RN requested for prn painmedication for patient) ambulation/increased activity breathing exercises care clustered diversional activity provided emotional support pain management plan reviewed with patient/caregiver pillow support provided position adjusted quiet environment facilitated relaxation techniques promoted rest therapeutic presence Intervention: Provide Person-Centered Care Flowsheets (Taken 04/26/2025926) Trust Relationship/Rapport: care explained choices provided emotional support provided empathic listening provided questions answered thoughts/feelings acknowledged reassurance provided questions encouraged Goal: Readiness for Transition of Care Outcome: Ongoing, Progressing Intervention: Mutually Develop Transition Plan Flowsheets (Taken 04/26/2025926) Discharge Facility/Level of Care Needs: 1-Home or Self Care Equipment Needed After Discharge: walker, rolling shower chair Equipment Currently Used at Home: walker, rolling shower chair Current Outpatient/Agency/Support Group: clinic(s) Anticipated Changes Related to Illness: inability to care for self Concerns Comments: Patient lives home alone, may need assistance at home Transportation Anticipated: medical transport public transportation Outpatient/Agency/Support Group Needs: OT, PT, RESEARCH SUPPORT SPECIALIST Transportation Concerns: rides, unreliable from others Current Discharge Risk: lack of support system/caregiver Concerns to be Addressed: home safety medication coping/stress adjustment to diagnosis/illness Readmission Within the Last 30 Days: no previous admission in last 30 days Patient/Family Anticipated Services at Transition: outpatient care Patient/Family Anticipates Transition to: home Offered/Gave Vendor List: no Problem: Fall Injury Risk Goal: Absence of Fall and Fall-Related Injury Outcome: Ongoing, Progressing Note: Patient remains free from falls this shift, Bed alarm and chair alarm to remain on. Patient educated to call RN when needing to get out of bed with call light. Call light next to patient. Problem: Pain Acute Goal: Optimal Pain Control and Function Outcome: Ongoing, Progressing Intervention: Develop Pain Management Plan Flowsheets (Taken 04/26/2025920) Pain Management Interventions: (MD uLcas notified to come to bedside and RN requested for prn painmedication for patient) ambulation/increased activity breathing exercises care clustered diversional activity provided emotional support pain management plan reviewed with patient/caregiver pillow support provided position adjusted quiet environment facilitated relaxation techniques promoted rest therapeutic presence Intervention: Prevent or Manage Pain Flowsheets Taken 04/26/2025926 by Loida Hernandez Complementary Therapy: music therapy provided Sensory Stimulation Regulation: lighting decreased quiet environment promoted Bowel Elimination Promotion: ambulation promoted adequate fluid intake promoted Sleep/Rest Enhancement: awakenings minimized regular sleep/rest pattern promoted noise level reduced room darkened Medication Review/Management: medications reviewed high-risk medications identified * Progress Notes - Ruslan Lucas MD - 04/26/2025 8:16 AM EDT Subjective Chema Hendrickson is a 64 y.o. 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 Previously, he had severe hemorrhagic shock requiring emergency ICU care and multiple transfusions at the [facility] September 2024. He has had previous endoscopy and esophageal banding. He is undergoing evaluation b y the liver transplant team for candidacy for liver transplant. He was seen in the clinic today. Hewas weak and routine laboratory data showed that he had anemia with hemoglobin 6.9 grams/deciliter and he was admitted to the hospital directly from clinic. He describes some epigastric abdominal pain which she describes as [id number]. He denies hematemesis although he has some nausea. He denies bright red blood per rectum and he describes that he has black stools ???off and on. ?? he reports that his stools has been formed and they are not watery. He denies high fever, soaking sweats orshaking chills. He denies chest pain or shortness for breath. He reports that he avoids red meat because he finds that it feels heavy and disagreeable. He is not a strict vegetarian and reports thathe can eat eggs and chicken without problems. Today his MELD score was calculated at 8. He has a history of nodular GAVE. He underwent EGD earlier this month that showed stigmata of recent hemorrhage and he had banding x5. He had grade [address] scan in January showed cirrhotic liver morphology with no masses concerning for hepatocellular carcinoma. He reports that he has not been feeling well recently. He reports that he had lightheadedness, dizziness and a syncopal/fainting episode. This was about 1 week ago. During that time, he fell and he injured his right foot specifically his right 3rd and 4th toes and he wonders if he could have brokenhis toes. He denies active lightheadedness or dizziness, confusion or palpitations currently His only other health problems are depression, migraine headaches and obesity. 04/26/2025: Pt is asking for pain medication. Nurse states Looks like he takes home meds of oxycontin 40mg twice a day, zyprexa 5mg,atarax 50mg q6 and zanaflex 4mg twice a day. Pt told nurse he takes oxy 10 mg bid and percocet 10 /325 3 times daily. he says he will withdraw without them. Review of Systems Musculoskeletal: Positive for back pain. All other systems reviewed and are negative. Objective Vitals Temp: [36.3 ??C (97.3 ??F)-36.9 ??C (98.5 ??F)] 36.7 ??C (98 ??F) Heart Rate: [70-83] 75 Resp: [14-24] 14 BP: (125-168)/(52-99) 134/52 Physical Exam Vitals reviewed. Constitutional: General: He is not in acute distress. Appearance: He is obese. He is not ill-appearing. HENT: Head: Normocephalic and atraumatic. Mouth/Throat: Mouth: Mucous membranes are moist. Eyes: General: No scleral icterus. Extraocular Movements: Extraocular movements intact. Pupils: Pupils are equal, round, and reactive to light. Cardiovascular: Rate and Rhythm: Normal rate. Pulses: Normal pulses. Pulmonary: Effort: Pulmonary effort is normal. Abdominal: General: There is distension. Palpations: Abdomen is soft. There is fluid wave. Musculoskeletal: General: Normal range of motion. Right lower leg: Edema present. Left lower leg: Edema present. Skin: General: Skin is warm. Coloration: Skin is pale. Skin is not jaundiced. Neurological: Mental Status: He is alert and oriented to person, place, and time. Mental status is at baseline. Gait: Gait normal. 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 Gastrointestinal bleeding: History of GAVE, PERALTA cirrhosis with CKD and black stool. EGD done on 04/25/2025 show no active bleeding, placed 4 bands on nodular GAVE. S/p PRBC 2 units Hgb and Hct Q12h Protonix pantoprazole 40 mg IV BID Follow up Stool GI consult, appreciate recs Severe Back Pain: Pt had severe back pain. PRN Zanaflex tizanidine 4 mg PO BID PRN OxyCONTIN oxycodone ER 40 mg PO BID Roxicodone oxyCODONE 10 PO TID AC Generalized Anxiety Disorder: Wellbutrin SR bupropion 150 mg PO Daily Buspar buspirone 20 mg PO BID Zoloft sertraline 100 mg PO Daily Zyprexa olanzapine 5 mg PO Daily PERLATA decompensated Cirrhosis with Hepatic Encephalopathy: MELD 3.0: 9 at 04/26/2025 8:30 AM MELD-Na: 9 at 04/26/2025 8:30 AM Calculated from: Serum Creatinine: 1.06 mg/dL at 04/26/2025 8:30 AM Serum Sodium: 138 mmol/L (Using max of 137 mmol/L) at 04/26/2025 8:30 AM Total Bilirubin: 0.9 mg/dL (Using min of 1 mg/dL) at 04/26/2025 8:30 AM Serum Albumin: 3.3 g/dL at 04/26/2025 8:30 AM INR(ratio): 1.2 at 04/25/2025 9:17 PM Age at listing (hypothetical): 64 years Sex: Male at 04/26/2025 8:30 AM Lasix foursemide 40 IV P Q8h for 6 doses Aldactone spironolactone 50 mg PO Daily BPH: C/w Flomax tamsulosin 0.4 mg PO at bedtime. Monitor I&Os. FENGI: Regular GI Soft DVT prophylaxis: GI prophylaxis: Code status: Disposition: Ruslan Lucas MD Internal Medicine Hospitalist [employer] Department of Internal Medicine Division of Hospital Medicine [address] [address] Preferred method is secure chat or cell phone at [phone] Medically Ready for Discharge:Anticipated in 2-4 Days * Progress Notes - Sandy Smith, PT - 04/26/2025 8:14 AM EDT PHYSICAL THERAPY EVALUATION Patient Name Cheam Hendrickson Session Date 04/26/2025 Total Treatment Time 23 min PT Discharge Recommendations Home Equipment Recommendations Patient owns appropriate equipment HISTORY Chema Hendrickson is 64 y.o. male admitted 04/25/2025 for work-up of GIB (gastrointestinal bleeding). Hospital Course 1. Gastrointestinal hemorrhage with melena Procedures (if applicable) Past Medical History Patient has a past medical history of BPH (benign prostatic hyperplasia), Cirrhosis (CMS/HCC), Depression, Generalized anxiety disorder, Gout, Hypertension, Obesity, Other chronic pain, Personal history of other diseases of the digestive system, Personal history of other endocrine, nutritional and metabolic disease, and Unspecified osteoarthritis, unspecified site. Past Surgical History Patient has a past surgical history that includes Tonsilectomy, adenoidectomy, bilateral myringotomy and tubes (N/A); Gallbladder surgery (N/A); and Back surgery (N/A). PRECAUTIONS Weight Bearing Precautions (if applicable) ROM Restrictions (if applicable) Medical Precautions None SUBJECTIVE PARTICIPANTS IN CARE Visitors Present No Subjective Report Pt HAS been: * Ambulating in-room distances * Transferring Bed <> Chair since being admitted to the hospital. Pt remains unaware when pt may be discharged from [facility]. [place]ster (if applicable) Not Applicable HOME LIVING/SET-UP Lives With Alone Home Type Apartment Home Equipment Rollator Home Layout One level Bathroom Layout Bathroom: Tub/Shower: Tub/Shower combo Bathroom: Toilet: Standard Additional Comments PRIOR LEVEL OF FUNCTION Assist at Home No assist required prior to admission Level of Mobility Ambulatory- community Mobility [place] Independent gait without device History of Falls Yes Overall ADL Performance Independent Additional ADL Performance Detail PATIENT/FAMILY GOALS Patient/Family Goals Statement: To return home OBJECTIVE / INTERVENTIONS PRESENTATION Oxygen Oxygen Therapy: None (Room air) Lines and Tubes Peripheral IV 04/25/25 Anterior;Left Forearm (Active) Peripheral IV 04/25/25 Anterior;Right Forearm (Active) Pre-Session Supine, Head of bed elevated, Lines intact RN approved of session. Post-Session Sitting in chair, RN notified, Lines intact, Chair alarm, Call light in reach All needs met. Bracing (if applicable) PAIN Pain Intensity / Location Pre-Mobility: No c/o pain at rest Pain Intensity / Location Post-Mobility: Pt reports having chronic back pain; did not rate pain Prior to PT's departure: * rest was provided * pt was positioned for comfort * pillow support was provided * RN was informed of pt's pain DELIRIUM SCREENING RASS: Alert and calm Confusion Assessment Method-ICU (CAM-ICU/PCAM-ICU) Feature 3: Altered Level of Consciousness: Negative COGNITION Overall Cognitive Status Within Functional Limits Arousal/Alertness Appropriate responses to stimuli Mood/Behavior Alert Orientation Oriented X4 Command Following Single Step Commands: Consistently Multi-Step Commands: Consistently Method of Communication Verbal Additional Observations MOTOR EXAMINATION RANGE OF MOTION Right Upper Within Functional Limits Left Upper Within Functional Limits Right Lower Within Functional Limits Left Lower Within Functional Limits MANUAL MUSCLE TESTING Right Upper Within functional limits Left Upper Within functional limits Right Lower Within functional limits Left Lower Within functional limits MUSCLE TONE Right Upper WFL Left Upper WFL Right Lower WFL Left Lower WFL SENSORY EXAMINATION Light Touch Sensation Right Upper Intact Left Upper Intact Right Lower Intact Left Lower Intact THERAPEUTIC ACTIVITY Treatment Minutes 13 BED MOBILITY Level of [place] Physical/Non- physical Assist Adaptive Equipment Utilized Rolling/ Turning Scooting/ Bridging Independent Supine to Sit Independent Sit to Supine Interventions Pt was given verbal cues for to improve bed mobility. Pt was educated to log roll to their right to transition into sitting. TRANSFERS Level of [place] Physical/Non- physical Assist Adaptive Equipment Utilized Sit to Stand Independent Verbal Cues Stand to sit Independent Verbal Cues Bed to Chair Toilet Transfer Shower Transfer Interventions Pt completed 1 STS. Pt deferred needing an assistive device. Pt was given verbal cuesfor safety awareness. Pt was educated to sit in the chair for at least one hour to help improve upright tolerance, to strengthen abdominal muscles, for optimal lung function, and to prevent skin breakdown. Pt was positioned with pillows under bilateral arms to prevent skin breakdown on elbows and pillows were placed under legs to float heels to prevent skin breakdown. BALANCE Postural Appearance Posture: Stooped posture, Forward head, Rounded shoulders Level of [place] Balance Support Interventions Static Sit Independent No upper extremity support, Feet supported Pt sat unsupported at the EOB for~8 minutes. Dynamic Sit Independent No upper extremity support, Feet supported Dynamic Sitting-Balance: Anterior/Posterior weight shifts, Lateral weight shifts Pt maintained balance while MMT was performed. Pt was given verbal cues to maintain sitting uprightand to not lean posteriorly. Static Stand Independent No upper extremity supported Patient demonstrated forward head and roundedshoulders in standing. PT provided tactile cues at scapulae and thoracic spine to facilitate improved postural alignment. Verbal cues also given to reinforce awareness. Patient responded with improved upright posture and was able to maintain alignment with minimal cueing by end of session. Dynamic Stand Independent No upper extremity support Pt ambulated within a busy hallway. Pt had to visually scan their environment to not hit objects in hallway while maintaining their balance. AMBULATION Level of [place] Distance Adaptive Equipment Utilized Ambulation Independent 250' No device Apparatus: None Comments Pt had no LOB while ambulating. PT presence was necessary for: * progressing patient ambulation distances * decreasing patient's risk of falling while progressing pt's distances STANDARDIZED ASSESSMENTS [facility] 6-Clicks Mobility Assessment Difficulty patient has turning over in bed (including adjusting bedclothes, sheets, and blankets)?:None Difficulty patient has sitting down on and standing up from a chair with arms (wheelchair, bedside commode, etc.)?: None Difficulty patient has moving from lying on back to sitting on the side of the bed?: None How much help does the patient need moving to and from a bed to a chair (including a wheelchair)?: None How much help does the patient need to walk in hospital room?: None How much help does the patient need climbing 3-5 steps with a railing?: A little [facility] 6-Clicks Mobility Assessment Total : 23 ASSESSMENT PT FINDINGS Impairments (if identified) Decreased endurance, ventilation, and/or gas exchange Activity Limitations (if identified) Inability to ambulate community distances Participation Restrictions (if identified) Self-care, Home management, Community leisure Barriers to Discharge (if identified) Comorbidities PT Diagnosis n/a Additional Observations Activity Tolerance: Tolerates 10 - 20 min activity with multiple rests Evaluation/Treatment Tolerance: Patient limited by fatigue EVAL COMPLEXITY History Profile No personal factors and/or comorbidities Clinical Presentation Stable and/or uncomplicated characteristics Clinical Decision Making Low complexity PT RECOMMENDATIONS Discharge Destination Home Discharge Equipment Patient owns appropriate equipment Additional Recommendations (if applicable) Patient mobilized independently. Patient reports no concerns about returning home. PT recommends home. No DME or other rehab services are needed at this time. PLAN Pt no longer needs skilled inpatient PT at this time. PT will sign off. Please re-consult if there is a medical status change. Written by Sandy Smith PT on 04/26/25 at 10:40 AM. * Progress Notes - Ayush Bahena - 04/26/2025 8:13 AM EDT Occupational Therapy Evaluation/Discharge Summary Patient Name: Chema Hendrickson Today's Date: 04/26/2025 OT Discharge Recommendations: Home Equipment Recommended: Patient owns appropriate equipment History Chema Hendrickson is 64 y.o. male admitted 04/25/2025 for work-up of GIB (gastrointestinal bleeding). Problem List Active Hospital Problems Diagnosis Date Noted GIB (gastrointestinal bleeding) 04/25/2025 Other cirrhosis of liver (CMS/HCC) 04/25/2025 Right foot pain 04/25/2025 Generalized edema 04/25/2025 Class III obesity with body mass index (BMI) of 40.0 or higher (CMS/HCC) 02/27/2025 Procedures Past Medical History Patient has a past medical history of BPH (benign prostatic hyperplasia), Cirrhosis (CMS/HCC), Depression, Generalized anxiety disorder, Gout, Hypertension, Obesity, Other chronic pain, Personal history of other diseases of the digestive system, Personal history of other endocrine, nutritional and m etabolic disease, and Unspecified osteoarthritis, unspecified site. Past Surgical History Patient has a past surgical history that includes Tonsilectomy, adenoidectomy, bilateral myringotomy and tubes (N/A); Gallbladder surgery (N/A); and Back surgery (N/A). Precautions None Subjective Patient agreeable to initial OT evaluation this a.m. Participants in Care Family/Caregiver Present: No Dopster: Not Applicable Presentation Oxygen Therapy: None (Room air) Lines and Tubes: Intravenous access Pre-Session: Supine, Head of bed elevated, Lines intact Post-Session: Sitting in chair, RN notified, Lines intact, Chair alarm, Call light in reach Post-Session Comments: All needs met. Home Living/Set-up Lives With: Alone Home Type: Apartment Home Adaptive Equipment: Rollator Home Layout: One level Bathroom: Tub/Shower: Tub/Shower combo Bathroom: Toilet: Standard Prior Level of Function Receives Help From: No assist required prior to admission Level of Mobility: Ambulatory- community Mobility Easton: Independent gait without device History of Falls: Yes ADL Performance: Independent Patient/Family Goals Statement Objective Pain Patient with no c/o pain at this time. Delirium Screening RASS: Alert and calm Confusion Assessment Method-ICU (CAM-ICU/PCAM-ICU) Feature 3: Altered Level of Consciousness: Negative Cognition Overall Cognitive Status: Within Functional Limits Arousal/Alertness: Appropriate responses to stimuli Mood/Behavior: Alert Orientation Level: Oriented X4 Single Step Commands: Consistently Multi-Step Commands: Consistently Method of Communication: Verbal Right Upper Extremity Examination RUE ROM Assessment RUE Assessment: Within Functional Limits Manual Muscle Testing - RUE: Within functional limits Sensation Light Touch: Right Upper Extremity: Intact Left Upper Extremity Examination LUE ROM Assessment LUE Assessment: Within Functional Limits Manual Muscle Testing - LUE: Within functional limits Sensation Light Touch: Left Upper Extremity: Intact Right Lower Extremity Examination RLE ROM Assessment RLE Assessment: Within Functional Limits Manual Muscle Testing - RLE: Within functional limits Sensation Light Touch: Right Lower Extremity: Intact Left Lower Extremity Examination LLE ROM Assessment LLE Assessment: Within Functional Limits Manual Muscle Testing: Within functional limits Sensation Light Touch: Left Lower Extremity: Intact Bed Mobility Bed Mobility Exam: Supine to Sit Level of Easton: Independent Transfers Transfer Exam: Sit to stand Level of Easton: Independent Physical/Nonphysical Assist: Verbal Cues Transfer Exam: Stand to Sit Level of Easton: Independent Physical/Nonphysical Assist: Verbal Cues Functional Mobility Device: No device Assistance: Independent Distance : 250' Therapeutic Activity (10 minutes) Please refer to bed mobility and transfers for intervention details. Patient required verbal cueingand physical assist (hand and feet placement) for set-up, initiation, facilitation, sequencing, andoverall execution of instructed tasks. Therapeutic activity focused on functional task training in order to promote functional strengthening, maximize activity tolerance, and enhance safety awareness. Standardized Assessments Catherine Index Feeding: Independent Bathing: Independent (or in Shower) Grooming: Independent face/hair/teeth/shaving (implements provided) Dressing: Independent (including buttons, zips, laces etc.) Bowels: Continent Bladder: Continent Toilet Use: Independent (on and off, dressing, wiping) Transfers (Bed to Chair and Back): Independent Mobility (on Level Surfaces): Independent (but may use any aid - for example, stick) > 50 yards Stairs: Independent Total Score: 100 Assessment Patient is independent with ADLs and functional mobility at this time. Patient presents with no skilled OT needs. OT will complete orders and sign off. OT Findings: Evaluation/Treatment Tolerance: Patient limited by fatigue Barriers to Discharge: Comorbidities Eval Complexity Occupational Profile: Expanded review of medical/therapy records and additional review of physical,cognitive, or psychosocial history Performance Deficits: Social participation, Leisure Clinical Decision Making: Low Overall Eval complexity: Low OT Recommendations Discharge Destination: Home Discharge Equipment: Patient owns appropriate equipment Plan Patient no longer demonstrates need for inpatient occupational therapy services. Patient to be discharged from occupational therapy. Written by Ayush Bahena on 04/26/25 at 10:31 AM. * Care Plan - Joanne Priest RN - 04/26/2025 2:34 AM EDT Problem: Adult Inpatient Plan of Care Goal: Plan of Care Review Outcome: Ongoing, Progressing Flowsheets Taken 04/26/2025 0232 by Joanne Priest RN Progress: improving Taken 04/25/2025 1356 by Alicia Woo Plan of Care Reviewed With: patient Goal: Patient-Specific Goal (Individualized) Outcome: Ongoing, Progressing Flowsheets (Taken 04/25/2025 2138) Patient/Family-Specific Goals (Include Timeframe): Pt to report ease of pain with scheduled pain medications, Pt to remain free form falls. Pt to report rest overnight, cluster care. Individualized Care Needs: Ease of pain or discomfort this shift, fee from falls, comfrt and rest Anxieties, Fears or Concerns: pain control Goal: Absence of Hospital-Acquired Illness or Injury Outcome: Ongoing, Progressing Intervention: Prevent and Manage VTE (Venous Thromboembolism) Risk Flowsheets (Taken 04/26/2025 0232) VTE Prevention/Management: bilateral SCDs (sequential compression devices) on education provided Goal: Optimal Comfort and Wellbeing Outcome: Ongoing, Progressing Goal: Readiness for Transition of Care Outcome: Ongoing, Progressing Problem: Fall Injury Risk Goal: Absence of Fall and Fall-Related Injury Outcome: Ongoing, Progressing Note: Education provided. Bed and or chair alarm in use for safety. Pt to use call light appropriately for staff assistance prior to getting up out of bed. Problem: Pain Acute Goal: Optimal Pain Control and Function Outcome: Ongoing, Progressing Intervention: Develop Pain Management Plan Flowsheets (Taken 04/25/2025 2143) Pain Management Interventions: emotional support pain management plan reviewed with patient/caregiver pillow support provided position adjusted Intervention: Prevent or Manage Pain Flowsheets (Taken 04/26/2025 0232) Sensory Stimulation Regulation: lighting decreased quiet environment promoted Bowel Elimination Promotion: ambulation promoted adequate fluid intake promoted Sleep/Rest Enhancement: awakenings minimized regular sleep/rest pattern promoted noise level reduced room darkened Medication Review/Management: medications reviewed high-risk medications identified * Procedures - Ana Luisa Terrell RN - 04/25/2025 4:53 PM EDTAssociated Order(s): Insert peripheral IV Insert peripheral IV Performed by: Ana Luisa Terrell RN Authorized by: Allen Chen MD Hand hygiene: Hand hygiene performed prior to insertion Inserted using aseptic techniques: Yes Preparation: Skin prepped with chg Orientation: Right Location: Forearm Catheter placed: Peripheral IV Catheter size: 20g/2.00in Line Technique: Ultrasound Guidance Number of attempts: 1 IV flushes: Without difficulty and positive blood return noted and IV luer locked Patient tolerance: Patient tolerated the procedure well, age appropriate response and there were nocomplications IV site covered with: Transparent semipermeable dressing Education provided to: Patient * Care Plan - Alicia Woo - 04/25/2025 1:57 PM EDT Problem: Adult Inpatient Plan of Care Goal: Plan of Care Review Outcome: Ongoing, Progressing Flowsheets (Taken 04/25/2025 0859) Progress: improving Plan of Care Reviewed With: patient Goal: Patient-Specific Goal (Individualized) Outcome: Ongoing, Progressing Goal: Absence of Hospital-Acquired Illness or Injury Outcome: Ongoing, Progressing Goal: Optimal Comfort and Wellbeing Outcome: Ongoing, Progressing Goal: Readiness for Transition of Care Outcome: Ongoing, Progressing Problem: Fall Injury Risk Goal: Absence of Fall and Fall-Related Injury Outcome: Ongoing, Progressing * H&P - Allen Chen MD - 04/25/2025 1:10 PM EDT Chief complaint: Weakness and abnormal labs History Of Present Illness Chema Hendrickson is a 64 y.o. 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 Previously, he had severe hemorrhagic shock requiring emergency ICU care and multiple transfusions at the [facility] September 2024. He has had previous endoscopy and esophageal banding. He is undergoing evaluation b y the liver transplant team for candidacy for liver transplant. He was seen in the clinic today. Hewas weak and routine laboratory data showed that he had anemia with hemoglobin 6.9 grams/deciliter and he was admitted to the hospital directly from clinic. He describes some epigastric abdominal pain which she describes as [id number]. He denies hematemesis although he has some nausea. He denies bright red blood per rectum and he describes that he has black stools ???off and on. ?? he reports that his stools has been formed and they are not watery. He denies high fever, soaking sweats orshaking chills. He denies chest pain or shortness for breath. He reports that he avoids red meat because he finds that it feels heavy and disagreeable. He is not a strict vegetarian and reports that he can eat eggs and chicken without problems. Today his MELD score was calculated at 8. He has a history of nodular GAVE. He underwent EGD earlier this month that showed stigmata of recent hemorrhage and he had banding x5. He had grade [address] scan in January showed cirrhotic liver morphology with no masses concerning for hepatocellular carcinoma. He reports that he has not been feeling well recently. He reports that he had lightheadedness, dizziness and a syncopal/fainting episode. This was about 1 week ago. During that time, he fell and he injured his right foot specifically his right 3rd and 4th toes and he wonders if he could have brokenhis toes. He denies active lightheadedness or dizziness, confusion or palpitations currently His only other health problems are depression, migraine headaches and obesity. Past medical history: Cirrhosis-decompensated with esophageal varices, nodular GAVE Obesity, BMI greater than 40 Anxiety and depression History of GI bleed History of anemia of acute blood loss/hemorrhagic shock Past surgical history: EGD with esophageal banding Social history: Never smoke cigarettes, does not drink alcohol or use illegal drugs. Lives alone. Allergies Celecoxib Outpatient medications in system Home Medications[1] Medications ordered for hospitalization Current Scheduled Medications[2] Current Continuous Medications[3] Current PRN Medications[4] Objective Review of Systems A 10 point review of systems was conducted and was negative except as mentioned in the HPI. Physical Exam General: Alert, no acute distress, conversant, obese, cooperative HEENT: No temporal wasting, EOMI, no scleral icterus, no conjunctival pallor mucosal membranes moist Neck: Supple, normal range of motion Cardiovascular: Normal S1-S2, regular rhythm, normal rate, no rub, 3/6 murmur Pulmonary: Clear to auscultation bilaterally, no wheezes, rales or rhonchi, on room air. Good chestexcursion Gastrointestinal: Abdomen soft, obese, no guarding, mild diffuse tenderness in epigastrium Genitourinary: No Paz catheter Musculoskeletal: Good muscle tone, good range of motion, 3+ bilateral lower extremity edema, no erythema, mild swelling of toes, postoperative changes involving the right great toe Neuro: Alert, oriented, no focal neurologic deficits, affect is calm, thoughts are fluent Derm: Skin is clean, dry, intact, no wounds or lesions Results Review Labs from hepatology Clinic earlier today: CBC: White blood cell count 4.3 hemoglobin 6.9 platelet count 109 Comprehensive metabolic panel: Sodium 139, potassium 4.3 chloride 106 CO2 23 BUN 16 creatinine 1.12 calcium 8.6 Total bilirubin 0.4, alkaline phosphatase 153, ALT 18, AST 30 glucose 106 MELD score 8 April 25, 2025 Assessment & Plan GIB (gastrointestinal bleeding) Class III obesity with body mass index (BMI) of 40.0 or higher (CMS/HCC) Other cirrhosis of liver (CMS/HCC) Right foot pain Generalized edema Mr. Emeka is a 64-year-old man who has anemia after presentation to hepatology Clinic for evaluationfor possible liver transplant. He has MESH cirrhosis with a associated nodular GAVE and esophageal varices previously requiring banding for upper GI bleeding. He has a obesity, generalized anxiety and depression. Recently he had syncope and he injured his right foot. He has a murmur and peripheral edema concerning for possible cardiovascular disease. Anemia of acute blood loss: We will repeat his CBC. I have ordered a transfusion and the patient has signed a consent after discussion of the risks and benefits of blood transfusion. - He describes melena without bright red blood per rectum. He has nausea without hematemesis. - I have consulted GI to evaluate the patient for possible endoscopy. He has had previous EGD procedures which required esophageal banding. - We will continue with his outpatient proton pump inhibitor twice daily He requests a soft diet and vegetarian diet. He no longer tolerates red meat - We will monitor his laboratory data routinely. - I am reassured that his MELD score is 8-please see labs above Syncope with right foot pain: I suspect that his syncope was related to anemia compounded by hypotension. - We will check a plain film x-ray of his right foot. He has pain and wonders if he fractured his toes. - We will ask Physical therapy to assess the patient for balance, fall risk, strength and any rehabilitation needs. Cirrhosis:-Secondary to PERALTA - Complicated by esophageal varices and upper GI bleed - I will defer to hepatology regarding medical management of his liver disease. He is on diuretics with spironolactone and furosemide we will continue these in the setting of his total body volume overload/edema. He is a murmur and we will check an echocardiogram to evaluate for valvular heart disease/congestive heart failure contributing to his edema. Venous thromboembolism prophylaxis Patient on SCDs in the setting of GI bleed Diet Dietary Orders (From admission, onward) Start Ordered 04/25/25 1226 Adult diet Diet texture: Soft & Bite Sized 6 Diet effective now Comments: Vegetarian References: IDDSI Diet Texture Guide Question: Diet texture Answer: Soft & Bite Sized 6 04/25/25 1227 Code Status Full Code Allen Chen MD [facility] Medicine [1] Medications Prior to Admission Medication Sig Dispense Refill allopurinol (Zyloprim) 300 MG tablet Take 1 tablet by mouth daily. buPROPion SR (Wellbutrin SR) 150 MG 12 hr tablet Take 1 tablet by mouth daily. Do not crush, chew, or split. busPIRone (Buspar) 10 MG tablet Take 2 tablets by mouth 2 times a day. colchicine (Colcrys) 0.6 MG tablet Take 1 tablet by mouth daily. furosemide (Lasix) 40 MG tablet Take 1 tablet by mouth daily for 3 days. 3 tablet 0 gabapentin (Neurontin) 300 MG capsule Take 2 capsules by mouth 3 times a day. 180 capsule 0 hydrOXYzine HCl (Atarax) 50 MG tablet Take 1 tablet by mouth every 6 hours as needed for itching. OLANZapine (ZyPREXA) 5 MG tablet Take 1 tablet by mouth nightly. ondansetron ODT (Zofran-ODT) 4 MG disintegrating tablet Dissolve 1 tablet on the tongue every 8 hours as needed for nausea or vomiting. 20 tablet 0 OxyCONTIN 40 MG 12 hr tablet Take 1 tablet by mouth 2 times a day. pantoprazole (Protonix) 40 MG EC tablet Take 1 tablet by mouth daily before breakfast. Do not crush, chew, or split. promethazine (Phenergan) 25 MG tablet Take 1/2 to 1 tablet ever 6 hours as needed for nausea or vomiting. sertraline (Zoloft) 100 MG tablet Take 1 tablet by mouth daily. spironolactone (Aldactone) 100 MG tablet Take 1 tablet by mouth daily. spironolactone (Aldactone) 50 MG tablet Take 1 tablet by mouth daily for 3 days. (Patient not taking: Reported on 04/25/2025) 3 tablet 0 SUMAtriptan (Imitrex) 100 MG tablet TAKE 1/2 TO 1 TABLET BY MOUTH AT ONSET OF HEADACHE, MAY REPEAT DOSE ONCE IN 2 HOURS IF NO RELIEF. tamsulosin (Flomax) 0.4 MG 24 hr capsule Take 1 capsule by mouth nightly. tiZANidine (Zanaflex) 4 MG tablet Take 1 tablet by mouth 2 times a day as needed for muscle spasms. [2] sodium chloride, 10 mL, Intravenous, q12h [3] [4] PRN medications: Insert peripheral IV AND Saline lock IV AND sodium chloride AND sodium chloride * Consults - Estee Urbano DO - 04/25/2025 1:05 PM EDT Inpatient Gastroenterology, Hepatology and Nutrition Initial Consultation Note: Patient: Chema Hendrickson Date of : 1960 Room: [address] [place] [address] Referring provider: Allen Chen Reason for consultation: GIB, anemia of acute blood loss, cirrhosis with EV, hx of banding Subjective: History of present illness: Mr. Hendrickson is a 64yo M w pmhx of decompensated MASLD cirrhosis, CKD, hypertension, gout, BPH and chronic back pain who presents to as a direct admit from transplant clinic for anemia (hgb 6.9) iso melena. Mr. Hendrickson is alert and oriented and provides history. He reports feeling weak over the past several days with increased fatigue, paleness, and SOA on exertion. He admits to a few days of melena,last noticed two days ago. Last BM 04/24 a.m. He also notes increased lower ext edema. He denies fever, chills, nausea, vomiting, abdominal pain, dysuria, constipation and diarrhea. Denies hematochezia, coffee ground emesis, and hematemesis. Reports he is often anemic usually caused by bleeding in gut He reports being diagnosed with cirrhosis > 10 years ago. Denies hx of HE and ascites. Has known hx of EV and gave s/p banding. He follows with Dr. Jones in [place]. Of note, patient was recently admitted to on 02/25/2025 secondary to acute on chronic anemia andunderwent EGD on 02/26/2025 which showed grade 1 esophageal varices, small type 1 hiatal hernia. Antral gave with stigmata of recent hemorrhage s/p band x5. Small nonbleeding vascular ectasia and cardia. Patient is afebrile and hemodynamically stable. Labs noteable for hgb 6.-9-->6. Plt 109, INR 1.1, chemistry grossly normal, alk phos 130. No imaging since arrival. Patient admitted to hospital medicine. Review of Systems: negative unless mentioned in HPI Past Medical History[1] Surgical History[2] Family History[3] Family history reviewed and non-contributory Social History[4] Allergies[5] Current Medications[6] Objective: Temp: [37.2 ??C (98.9 ??F)] 37.2 ??C (98.9 ??F) Heart Rate: [91] 91 Resp: [16] 16 BP: (158)/(85) 158/85 There is no height or weight on file to calculate BMI. Physical Exam Eyes: General: No scleral icterus. Cardiovascular: Rate and Rhythm: Normal rate. Heart sounds: No murmur heard. Pulmonary: Effort: Pulmonary effort is normal. Abdominal: General: There is no distension. Palpations: Abdomen is soft. Tenderness: There is no abdominal tenderness. Musculoskeletal: Right lower leg: Edema present. Left lower leg: Edema present. Skin: Coloration: Skin is pale. Skin is not jaundiced. Neurological: General: No focal deficit present. Mental Status: He is oriented to person, place, and time. Laboratory: CBC WBC 4.32 Hb 6.9 (L) Plt 109 (L) Hct 25.2 (L) INR 1.1 PTT ?? BMP Na 139 Cl 106 BUN 16 Glu 106 (H) K 4.3 Co2 23 Cr 1.12 Mg ?? Phos ?? LFT AST 30 AlkPhos 153 (H) T Prot 6.2 (L) ALK 18 T Bili 0.4 Alb ?? Imaging: CT liver 01/2025: Cirrhotic liver morphology with no suspicious liver lesions. Splenomegaly with fewsplenules noted. EGD 09/2024: Nodular gave s/p band x8 EGD 05/2025: Nodular gave with stigmata of recent hemorrhage s/p band x5. Also found to have petechial gave in cardia. Otherwise noted to have grade 1 EV Assessment and Plan: Mr. Hendrickson is a 64yo M w pmhx of decompensated MASLD cirrhosis, CKD, hypertension, gout, BPH and chronic back pain who presents to as a direct admit from transplant clinic for anemia (hgb 6.9) iso melena. # Acute Blood Loss anemia 2/2 to suspected GI Bleed iso melena - patient presenting from transplant clinic for anemia w recent hx of melena - likely source is GAVE given recent EGD findings but ddx: EV, esophagitis, gastritis, AVM, Dieulafoy's lesion, PUD - Hgb on admission 6.9, now 6; baseline Hgb 7-8 - received 1 U pRBC on presentation, last hemodynamics stable - EGD on 02/26/2025 showed grade 1 esophageal varices, small type 1 hiatal hernia. Antral gave withstigmata of recent hemorrhage s/p band x5. Small nonbleeding vascular ectasia and cardia. RECOMMENDATIONS: - Continue IV PPI bid - Given hx of cirrhosis, recommend starting antibiotics for 5-7 day course, IV or PO - will tentatively plan for EGD 04/25 afternoon, if unable to complete, will plan for EGD on Saturday 04/28 (would make NPO Monday at midnight) - recommend holding diuretics iso possible GIB - Maintain two working large bore IVs - transfuse for Hgb < 7; plt <50 hold AC and remain NPO - if patient #Decompensated Cirrhosis Etiology: MASLD MELD 3.0: 8 at 04/25/2025 12:45 PM MELD-Na: [...] years Sex: Male at 04/25/2025 12:45 PM - HE: no known hx, takes no lactulose or rifaximin - Varices: EGD 02/26 with small grade I EV, on carvedilol - Ascites: no hx, never had a paracentesis, on lasix for lower ext swelling - HCC: CT liver 01/2025 Cirrhotic liver morphology with no suspicious liver lesions. Splenomegaly with few splenules noted. AFP 04/2025: 3.7 - Transplant: established with transplant 04/25 to begin evaluation RECOMMENDATIONS: - recommend holding diuretics iso possible GIB - recommend consideration of liver US with doppler - Recommend strict adherence to a low sodium diet (2 gram/day). Consider nutrition consult for education and reinforcement. - Recommend avoidance of all NSAIDs due to risk of bleeding and renal failure. Tylenol can be used PRN for pain or fever (no more than 2 gm/day). Thank you for the opportunity to participate in this patient's care! Will continue to follow along with you. Patient seen by and discussed with Dr. Terrell, gastroenterology, hepatology and nutrition attending physician. Estee Urbano DO Internal Medicine, PGY-3 [1] Past Medical History: Diagnosis Date BPH (benign prostatic hyperplasia) Depression Generalized anxiety disorder Anxiety, generalized Gout Hypertension Obesity Other chronic pain Chronic pain Personal history of other diseases of the digestive system History of esophageal reflux Personal history of other endocrine, nutritional and metabolic disease History of type 2 diabetes mellitus Unspecified osteoarthritis, unspecified site Chronic osteoarthritis [2] Past Surgical History: Procedure Laterality Date BACK SURGERY N/A Back Surgery from [facility] GALLBLADDER SURGERY N/A Gallbladder Surgery from [facility] TONSILECTOMY, ADENOIDECTOMY, BILATERAL MYRINGOTOMY AND TUBES N/A Tonsillectomy With Adenoidectomy from [facility] [3] Family History Problem Relation Name Age of Onset Hypertension Other Stomach cancer Other [4] Social History Tobacco Use Smoking status: Never Smokeless tobacco: Never Substance Use Topics Alcohol use: No Drug use: Never [5] Allergies Allergen Reactions Celecoxib Unknown - Patient states they do not know rxn details [6] Current Facility-Administered Medications: Insert peripheral IV, , , Once AND Saline lock IV, , , Once AND sodium chloride 0.9 % flush10 mL, 10 mL, Intravenous, q12h AND sodium chloride 0.9 % flush 10 mL, 10 mL, Intravenous, PRN,Allen Chen MD Cosigned by Luis Terrell MD at 04/25/2025 2:56 PM EDT Associated attestation - Luis Terrell MD - 04/25/2025 2:56 PM EDT I saw and evaluated the patient with the resident/fellow. I discussed the case with the resident/fellow and agree with the findings and plan as documented. documented in this encounter Plan of Treatment Upcoming Encounters Date Type Department Care Team (Late st Contact Info) Description 06/03/2025 8:30 AM EDT Clinical Support [facility] [place] [address] [place] [address] 06/03/2025 10:00 AM EDT Office Visit [facility] [place] [address] [place] [address] Daniel Marques MD [address] [place] [address] Scheduled Orders Name Type Priority Associated Diagnoses Orde r Schedule Basic metabolic panel Lab Routine Gastrointestinal hemorrhage with melena Expected: 05/04/2025 (Approximate), Expires: 10/29/2026 Hepatic function panel Lab Routine Gastrointestinal hemorrhage with melena Expected: 05/04/2025 (Approximate), Expires: 10/29/2026 CBC and differential Lab Routine Gastrointestinal hemorrhage with melena Expected: 05/04/2025 (Approximate), Expires: 10/29/2026 Scheduled Referrals Name Type Priority Associated Diagnoses Order Schedule Ambulatory referral to Solid Organ Transplant Team Outpatient Referral Routine Gastrointestinal hemorrhage with melena Ordered: 04/27/2025 documented as of this encounter Goals Goal Patient Goal Type Associated Problems Recent Progress Patient-Stated? Author Autogenerat ed Goal Care Plan Autogenerated Problem No Andreia Grossman, RN Autogenerat ed Goal Care Plan Autogenerated Problem No Angelina Lorenzo, SERVANDO documented as of this encounter Procedures Procedure Name Priority Date/Time Associated Diagnosis Comments CBC WITH AUTO DIFFERENTIAL Routine 04/27/2025 6:09 AM EDT PHOSPHORUS, PLASMA Routine 04/27/2025 6: 08 AM EDT MAGNESIUM, PLASMA Routine 04/27/2025 6:0 8 AM EDT BASIC METABOLIC PANEL, PLASMA Routine 04/27/2025 6:08 AM EDT HEMOGLOBIN AND HEMATOCRIT, BLOOD Routine 04/26/2025 9:24 PM EDT ECG ADULT Routine 04/26/2025 4:53 PM EDT EXTRA TUBE LAVENDER TOP Routine 04/26/2025 8:30 AM EDT EXTRA TUBE LIGHT GREEN TOP Routine 04/26/2025 8:30 AM EDT EXTRA TUBES Routine 04/26/2025 8:30 AM EDT CBC WITH AUTO DIFFERENTIAL STAT 04/26/2025 8:30 AM EDT PHOSPHORUS, PLASMA STAT 04/26/2025 8: 30 AM EDT MAGNESIUM, PLASMA STAT 04/26/2025 8:3 0 AM EDT HEPATIC FUNCTION PANEL STAT 8:30 AM EDT BASIC METABOLIC PANEL, PLASMA STAT 04/26/2025 8:30 AM EDT PROTHROMBIN TIME(PT) / INR Routine 04/25/2025 9:17 PM EDT CBC W/O DIFFERENTIAL STAT 04/25/2025 9:17 PM EDT PHOSPHORUS, PLASMA Routine 04/25/2025 9: 17 PM EDT MAGNESIUM, PLASMA Routine 04/25/2025 9:1 7 PM EDT COMPREHENSIVE METABOLIC PANEL, PLASMA Routine 04/25/2025 9:17 PM EDT TRANSFUSE RED BLOOD CELLS Routine 04/25/2025 6:03 PM EDT INSERT PERIPHERAL IV STAT 04/25/2025 4:53 PM EDT EGD Routine 04/25/2025 4:47 PM EDT Gastrointestinal hemorrhage with melena ECHO, ADULT TRANSTHORACIC COMPLETE Routine 04/25/2025 3:15 PM EDT XR FOOT RIGHT 1 OR 2 VIEWS Routine 04/25/2025 3:08 PM EDT PREPARE RBC Routine 04/25/2025 1:49 PM EDT TRANSFUSE RED BLOOD CELLS Routine 04/25/2025 1:26 PM EDT CBC W/O DIFFERENTIAL Routine 04/25/2025 12:45 PM EDT COMPREHENSIVE METABOLIC PANEL, PLASMA Routine 04/25/2025 12:45 PM EDT PREPARE RBC Routine 04/25/2025 12:28 PM EDT documented in this encounter Results * (ABNORMAL) CBC and Differential (04/27/2025 6:09 AM EDT) WBC Count 1.36(L) 3.70 - 10.30 10*3/uL LAB HEMATOLOGY METHOD 04/27/2025 6:24 AM EDT [facility] RBC Count 2.84(L) 4.60 - 6.10 10*6/uL LAB HEMATOLOGY METHOD 04/27/2025 6:24 AM EDT [facility] HGB 7.3(L) 13.7 - 17.5 g/dL LAB HEMATOLOGY METHOD 04/27/2025 6:24 AM EDT [facility] HCT 24.6(L) 40.0 - 51.0 % LAB HEMATOLOGY METHOD 04/27/2025 6:24 AM EDT [facility] Platelet Count 92(L) 155 - 369 10*3/uL LAB HEMATOLOGY METHOD 04/27/2025 6:24 AM EDT [facility] MCV 87 79 - 98 fL LAB HEMATOLOGY METHOD 04/27/2025 6:24 AM EDT [facility] MCH 25.7(L) 26.0 - 32.0 pg LAB HEMATOLOGY METHOD 04/27/2025 6:24 AM EDT [facility] MCHC 29.7(L) 30.7 - 35.5 g/dL LAB HEMATOLOGY METHOD 04/27/2025 6:24 AM EDT [facility] RDW 14.4 11.5 - 14.5 % LAB HEMATOLOGY METHOD 04/27/2025 6:24 AM EDT [facility] MPV 12.7(H) 8.8 - 12.5 fL LAB HEMATOLOGY METHOD 04/27/2025 6:24 AM EDT [facility] nRBC 0.0 <=0.0 per 100 WBCs LAB HEMATOLOGY METHOD 04/27/2025 6:24 AM EDT [facility] Differential Type Automated LAB HEMATOLOGY METHOD 04/27/2025 6:24 AM EDT [facility] Neutrophils % 57 % LAB HEMATOLOGY METHOD 04/27/2025 6:24 AM EDT [facility] Lymphocytes % 29 % LAB HEMATOLOGY METHOD 04/27/2025 6:24 AM EDT [facility] Monocytes % 10 % LAB HEMATOLOGY METHOD 04/27/2025 6:24 AM EDT [facility] Eosinophils % 4 % LAB HEMATOLOGY METHOD 04/27/2025 6:24 AM EDT [facility] Basophils % 0 % LAB HEMATOLOGY METHOD 04/27/2025 6:24 AM EDT [facility] Immature Granulocytes % 0 % LAB HEMATOLOGY METHOD 04/27/2025 6:24 AM EDT [facility] Neutrophils Absolute 0.78(LL) 1.60 - 6.10 10*3/uL LAB HEMATOLOGY METHOD 04/27/2025 6:24 AM EDT [facility] Lymphocytes Absolute 0.39(L) 1.20 - 3.90 10*3/uL LAB HEMATOLOGY METHOD 04/27/2025 6:24 AM EDT [facility] Monocytes Absolute 0.14(L) 0.30 - 0.90 10*3/uL LAB HEMATOLOGY METHOD 04/27/2025 6:24 AM EDT [facility] Eosinophils Absolute 0.05 0.00 - 0.50 10*3/uL LAB HEMATOLOGY METHOD 04/27/2025 6:24 AM EDT [facility] Basophils Absolute 0.00 0.00 - 0.10 10*3/uL LAB HEMATOLOGY METHOD 04/27/2025 6:24 AM EDT [facility] Immature Granulocytes Absolute 0.00 0.00 - 0.06 10*3/uL LAB HEMATOLOGY METHOD 04/27/2025 6:24 AM EDT [facility] Blood Venous blood specimen / Unknown Venipuncture / Unknown 04/27/2025 6:09 AM EDT 04/27/2025 6:14 AM EDT Narrative [facility] - 04/27/2025 6:24 AM EDT Therapeutic decision making should be based on absolute values, rather than percentages. Result Magen Lucas MD LAB BLOOD ORDERABLES Final Res ult Performing Organization Address City/[facility]/ZIP Co de Phone Number [facility] [address] [place] [address] * Phosphorus, Plasma (04/27/2025 6:08 AM EDT) Phosphorus, Plasma 4.0 2.5 - 4.5 mg/dL 04/27/2025 6:45 AM EDT [facility] Blood Venous blood specimen / Unknown Venipuncture / Unknown 04/27/2025 6:08 AM EDT 04/27/2025 6:14 AM EDT Result Magen Lucas MD LAB BLOOD ORDERABLES Final Res ult [facility] [address] [place] [address] * Magnesium, Plasma (04/27/2025 6:08 AM EDT) Magnesium, Plasma 1.9 1.9 - 2.4 mg/dL 04/27/2025 6:45 AM EDT [facility] Blood Venous blood specimen / Unknown Venipuncture / Unknown 04/27/2025 6:08 AM EDT 04/27/2025 6:14 AM EDT us Ruslan Lucas MD LAB BLOOD ORDERABLES Final Res ult [facility] [address] [place] [address] * (ABNORMAL) Basic Metabolic Panel, Plasma (04/27/2025 6:08 AM EDT) Glucose, Plasma 98 74 - 99 mg/dL 04/27/2025 6:45 AM EDT [facility] BUN, Plasma 20 8 - 23 mg/dL 04/27/2025 6:45 AM EDT [facility] Creatinine, Plasma 1.21(H) 0.70 - 1.20 mg/dL 04/27/2025 6:45 AM EDT [facility] BUN/Creatinine Ratio 17 04/27/2025 6:45 AM EDT [facility] Sodium, Plasma 140 136 - 145 mmol/L 04/27/2025 6:45 AM EDT [facility] Potassium, Plasma 3.7 3.6 - 4.9 mmol/L 04/27/2025 6:45 AM EDT [facility] Chloride, Plasma 102 97 - 107 mmol/L 04/27/2025 6:45 AM EDT [facility] CO2, Plasma 27 22 - 29 mmol/L 04/27/2025 6:45 AM EDT [facility] Anion Gap 11 6 - 16 mmol/L 04/27/2025 6:45 AM EDT [facility] Total Calcium, Plasma 7.9(L) 8.9 - 10.2 mg/dL 04/27/2025 6:45 AM EDT [facility] eGFRcr 67.3 mL/min/1.7 3m*2 04/27/2025 6:45 AM EDT [facility] Comment:Reported eGFRcr in m L/min/1.73m2 is based the CKD-EPI 2020 equation that does not use a race coefficient. Blood Venous blood specimen / Unknown Venipuncture / Unknown 04/27/2025 6:08 AM EDT 04/27/2025 6:14 AM EDT us Ruslan Lucas MD LAB BLOOD ORDERABLES Final Res ult [facility] [address] [place] [address] * (ABNORMAL) Hemoglobin and Hematocrit, Blood (04/26/2025 9:24 PM EDT) [facility] HGB 7.2(L) 13.7 - 17.5 g/dL LAB HEMATOLOGY METHOD 04/26/2025 9:39 PM EDT [facility] HCT 25.0(L) 40.0 - 51.0 % LAB HEMATOLOGY METHOD 04/26/2025 9:39 PM EDT [facility] Blood Venous blood specimen / Unknown Venipuncture / Unknown 04/26/2025 9:24 PM EDT 04/26/2025 9:30 PM EDT us Ruslan Lucas MD LAB BLOOD ORDERABLES Final Res ult Performing Organization Address [facility] de Phone Number [facility] [address] [place] [address] * ECG Adult (04/26/2025 4:53 PM EDT) [facility] EKG DIAGNOSIS CLASS Abnormal MUSE ECG Ventricular Rate 67 BPM MUSE ECG Atrial Rate 67 BPM MUSE ECG AK Interval 202 ms MUSE ECG QRSD Interval 102 ms MUSE ECG QT Interval 452 ms MUSE ECG QTC Interval 477 ms MUSE ECG P Easton 48 degrees MUSE ECG R Easton 6 degrees MUSE ECG T Wave Easton 50 degrees MUSE ECG Diagnosis Normal sinus rhythm MUSE ECG Diagnosis ST & T wave abnormlaities seen in anterior leads. MUSE ECG Diagnosis Abnormal ECG MUSE ECG Diagnosis MUSE ECG Diagnosis Confirmed by Torey Lopez ([id number]) on 04/27/2025 10:46:18 AM MUSE ECG 04/26/2025 4:53 PM EDT 04/27/2025 10:46 AM EDT us Ruslan Lucas MD ECG ORDERABLES Final Result Performing Organization Address [facility] Co de Phone Number MUSE ECG * Lavender Top (04/26/2025 8:30 AM EDT) Extra Hold for add-ons 04/26/2025 11:02 AM EDT [facility] Comment:Auto resulted. Blood Venous blood specimen / Unknown 04/26/2025 8:30 AM EDT 04/26/2025 8:46 AM EDT us Ruslan Lucas MD LAB BLOOD ORDERABLES Final Res ult Performing Organization Address [facility]/ZIP Co de Phone Number [facility] [address] [place] [address] * Light Green Top (04/26/2025 8:30 AM EDT) Extra Hold for add-ons 04/26/2025 11:02 AM EDT [facility] Comment:Auto resulted. Blood Venous blood specimen / Unknown 04/26/2025 8:30 AM EDT 04/26/2025 8:46 AM EDT us Ruslan Lucas MD LAB BLOOD ORDERABLES Final Res ult Performing Organization Address [facility] de Phone Number [facility] [address] [place] [address] * (ABNORMAL) Hepatic function panel (04/26/2025 8:30 AM EDT) Conjugated Bilirubin, Plasma 0.4(H) <=0.3 mg/dL 04/26/2025 9:15 AM EDT [facility] Alkaline Phosphatase, Plasma 139(H) 40 - 115 U/L 04/26/2025 9:15 AM EDT [facility] Total Bilirubin, Plasma 0.9 0.2 - 1.1 mg/dL 04/26/2025 9:15 AM EDT [facility] Albumin, Plasma 3.3(L) 3.5 - 5.2 g/dL 04/26/2025 9:15 AM EDT [facility] Total Protein 6.5 6.3 - 7.9 g/dL 04/26/2025 9:15 AM EDT [facility] ALT, Plasma 19 10 - 50 U/L 04/26/2025 9:15 AM EDT [facility] AST, Plasma 35 10 - 50 U/L 04/26/2025 9:15 AM EDT [facility] Blood Venous blood specimen / Unknown Venipuncture / Unknown 04/26/2025 8:30 AM EDT 04/26/2025 8:43 AM EDT us Ruslan Lucas MD LAB BLOOD ORDERABLES Final Res ult Performing Organization Address City/[facility]/ZIP Co de Phone Number [facility] [address] [place] [address] * Phosphorus, Plasma (04/26/2025 8:30 AM EDT) Phosphorus, Plasma 2.9 2.5 - 4.5 mg/dL 04/26/2025 9:15 AM EDT [facility] Blood Venous blood specimen / Unknown Venipuncture / Unknown 04/26/2025 8:30 AM EDT 04/26/2025 8:43 AM EDT us Ruslan Lucas MD LAB BLOOD ORDERABLES Final Res ult Performing Organization Address City/[facility]/ZIP Co de Phone Number [facility] [address] [place] [address] * Magnesium, Plasma (04/26/2025 8:30 AM EDT) Magnesium, Plasma 1.9 1.9 - 2.4 mg/dL 04/26/2025 9:15 AM EDT [facility] Blood Venous blood specimen / Unknown Venipuncture / Unknown 04/26/2025 8:30 AM EDT 04/26/2025 8:43 AM EDT us Ruslan Lucas MD LAB BLOOD ORDERABLES Final Res ult Performing Organization Address City/[facility] Co de Phone Number [facility] [address] [place] [address] * (ABNORMAL) Basic Metabolic Panel, Plasma (04/26/2025 8:30 AM EDT) Glucose, Plasma 96 74 - 99 mg/dL 04/26/2025 9:15 AM EDT [facility] BUN, Plasma 14 8 - 23 mg/dL 04/26/2025 9:15 AM EDT [facility] Creatinine, Plasma 1.06 0.70 - 1.20 mg/dL 04/26/2025 9:15 AM EDT [facility] BUN/Creatinine Ratio 13 04/26/2025 9:15 AM EDT [facility] Sodium, Plasma 138 136 - 145 mmol/L 04/26/2025 9:15 AM EDT [facility] Potassium, Plasma 3.7 3.6 - 4.9 mmol/L 04/26/2025 9:15 AM EDT [facility] Chloride, Plasma 101 97 - 107 mmol/L 04/26/2025 9:15 AM EDT [facility] CO2, Plasma 26 22 - 29 mmol/L 04/26/2025 9:15 AM EDT [facility] Anion Gap 11 6 - 16 mmol/L 04/26/2025 9:15 AM EDT [facility] Total Calcium, Plasma 8.3(L) 8.9 - 10.2 mg/dL 04/26/2025 9:15 AM EDT [facility] eGFRcr 78.9 mL/min/1.7 3m*2 04/26/2025 9:15 AM EDT [facility] Comment:Reported eGFRcr in m L/min/1.73m2 is based the CKD-EPI 2020 equation that does not use a race coefficient. Blood Venous blood specimen / Unknown Venipuncture / Unknown 04/26/2025 8:30 AM EDT 04/26/2025 8:43 AM EDT us Ruslan Lucas MD LAB BLOOD ORDERABLES Final Res ult [facility] [address] [place] [address] * (ABNORMAL) CBC and Differential (04/26/2025 8:30 AM EDT) WBC Count 2.89(L) 3.70 - 10.30 10*3/uL LAB HEMATOLOGY METHOD 04/26/2025 8:52 AM EDT [facility] RBC Count 3.22(L) 4.60 - 6.10 10*6/uL LAB HEMATOLOGY METHOD 04/26/2025 8:52 AM EDT [facility] HGB 8.2(L) 13.7 - 17.5 g/dL LAB HEMATOLOGY METHOD 04/26/2025 8:52 AM EDT [facility] HCT 27.8(L) 40.0 - 51.0 % LAB HEMATOLOGY METHOD 04/26/2025 8:52 AM EDT [facility] Platelet Count 99(L) 155 - 369 10*3/uL LAB HEMATOLOGY METHOD 04/26/2025 8:52 AM EDT [facility] MCV 86 79 - 98 fL LAB HEMATOLOGY METHOD 04/26/2025 8:52 AM EDT [facility] MCH 25.5(L) 26.0 - 32.0 pg LAB HEMATOLOGY METHOD 04/26/2025 8:52 AM EDT [facility] MCHC 29.5(L) 30.7 - 35.5 g/dL LAB HEMATOLOGY METHOD 04/26/2025 8:52 AM EDT [facility] RDW 14.6(H) 11.5 - 14.5 % LAB HEMATOLOGY METHOD 04/26/2025 8:52 AM EDT [facility] MPV 10.9 8.8 - 12.5 fL LAB HEMATOLOGY METHOD 04/26/2025 8:52 AM EDT [facility] nRBC 0.0 <=0.0 per 100 WBCs LAB HEMATOLOGY METHOD 04/26/2025 8:52 AM EDT [facility] Differential Type Automated LAB HEMATOLOGY METHOD 04/26/2025 8:52 AM EDT [facility] Neutrophils % 77 % LAB HEMATOLOGY METHOD 04/26/2025 8:52 AM EDT [facility] Lymphocytes % 14 % LAB HEMATOLOGY METHOD 04/26/2025 8:52 AM EDT [facility] Monocytes % 7 % LAB HEMATOLOGY METHOD 04/26/2025 8:52 AM EDT [facility] Eosinophils % 1 % LAB HEMATOLOGY METHOD 04/26/2025 8:52 AM EDT [facility] Basophils % 0 % LAB HEMATOLOGY METHOD 04/26/2025 8:52 AM EDT [facility] Immature Granulocytes % 1 % LAB HEMATOLOGY METHOD 04/26/2025 8:52 AM EDT [facility] Neutrophils Absolute 2.24 1.60 - 6.10 10*3/uL LAB HEMATOLOGY METHOD 04/26/2025 8:52 AM EDT [facility] Lymphocytes Absolute 0.39(L) 1.20 - 3.90 10*3/uL LAB HEMATOLOGY METHOD 04/26/2025 8:52 AM EDT [facility] Monocytes Absolute 0.20(L) 0.30 - 0.90 10*3/uL LAB HEMATOLOGY METHOD 04/26/2025 8:52 AM EDT [facility] Eosinophils Absolute 0.03 0.00 - 0.50 10*3/uL LAB HEMATOLOGY METHOD 04/26/2025 8:52 AM EDT [facility] Basophils Absolute 0.01 0.00 - 0.10 10*3/uL LAB HEMATOLOGY METHOD 04/26/2025 8:52 AM EDT [facility] Immature Granulocytes Absolute 0.02 0.00 - 0.06 10*3/uL LAB HEMATOLOGY METHOD 04/26/2025 8:52 AM EDT [facility] Blood Venous blood specimen / Unknown Venipuncture / Unknown 04/26/2025 8:30 AM EDT 04/26/2025 8:44 AM EDT [facility] - 04/26/2025 8:52 AM EDT Therapeutic decision making should be based on absolute values, rather than percentages. us Ruslan Lucas MD LAB BLOOD ORDERABLES Final Res ult [facility] [address] [place] [address] * (ABNORMAL) CBC W/O Differential (04/25/2025 9:17 PM EDT) WBC Count 2.68(L) 3.70 - 10.30 10*3/uL LAB HEMATOLOGY METHOD 04/25/2025 9:37 PM EDT [facility] RBC Count 2.91(L) 4.60 - 6.10 10*6/uL LAB HEMATOLOGY METHOD 04/25/2025 9:37 PM EDT [facility] HGB 7.6(L) 13.7 - 17.5 g/dL LAB HEMATOLOGY METHOD 04/25/2025 9:37 PM EDT [facility] HCT 25.3(L) 40.0 - 51.0 % LAB HEMATOLOGY METHOD 04/25/2025 9:37 PM EDT [facility] Platelet Count 74(L) 155 - 369 10*3/uL LAB HEMATOLOGY METHOD 04/25/2025 9:37 PM EDT [facility] MCV 87 79 - 98 fL LAB HEMATOLOGY METHOD 04/25/2025 9:37 PM EDT [facility] MCH 26.1 26.0 - 32.0 pg LAB HEMATOLOGY METHOD 04/25/2025 9:37 PM EDT [facility] MCHC 30.0(L) 30.7 - 35.5 g/dL LAB HEMATOLOGY METHOD 04/25/2025 9:37 PM EDT [facility] RDW 14.4 11.5 - 14.5 % LAB HEMATOLOGY METHOD 04/25/2025 9:37 PM EDT [facility] MPV 10.7 8.8 - 12.5 fL LAB HEMATOLOGY METHOD 04/25/2025 9:37 PM EDT [facility] nRBC 0.0 <=0.0 per 100 WBCs LAB HEMATOLOGY METHOD 04/25/2025 9:37 PM EDT [facility] Blood Venous blood specimen / Unknown Venipuncture / Unknown 04/25/2025 9:17 PM EDT 04/25/2025 9:30 PM EDT us Ruslan Lucas MD LAB BLOOD ORDERABLES Final Res ult [facility] [address] [place] [address] * (ABNORMAL) PT/INR (04/25/2025 9:17 PM EDT) Prothrombin Time 15.1(H) 12.0 - 14.3 sec LAB COAGULATION METHOD 04/25/2025 9:44 PM EDT [facility] INR 1.2(H) 0.9 - 1.1 LAB COAGULATION METHOD 04/25/2025 9:44 PM EDT [facility] Blood Venous blood specimen / Unknown Venipuncture / Unknown 04/25/2025 9:17 PM EDT 04/25/2025 9:30 PM EDT Narrative [facility] - 04/25/2025 9:44 PM EDT OPTIMAL INR RANGES FOR PATIENT ON ORAL ANTICOAGULANT THERAPY Prevention of venous thromboembolism INR 2.0 to 3.0 In patients with heart disease: Atrial fibrillation INR 2.0 to 3.0 Valvular heart disease INR 2.0 to 3.0 Tissue heart valves INR 2.0 to 3.0 Mechanical prosthetic valves INR 2.5 to 3.5 Prevention of recurrent WA INR 2.5 to 3.5 us Allen Chen MD LAB BLOOD ORDERABLES Final Re sult Performing Organization Address City/[facility]/[place] [address] * (ABNORMAL) Magnesium, Plasma (04/25/2025 9:17 PM EDT) Magnesium, Plasma 1.8(L) 1.9 - 2.4 mg/dL 04/25/2025 10:01 PM EDT [facility] Blood Venous blood specimen / Unknown Venipuncture / Unknown 04/25/2025 9:17 PM EDT 04/25/2025 9:30 PM EDT us Allen Chen MD LAB BLOOD ORDERAB[place] [address] * Phosphorus (04/25/2025 9:17 PM EDT) Phosphorus, Plasma 2.7 2.5 - 4.5 mg/dL 04/25/2025 10:01 PM EDT [facility] Blood Venous blood specimen / Unknown Venipuncture / Unknown 04/25/2025 9:17 PM EDT 04/25/2025 9:30 PM EDT us Allen Chen MD LAB BLOOD ORDERABLES Final Re sult [facility] [address] [place] [address] * (ABNORMAL) Comprehensive metabolic panel (04/25/2025 9:17 PM EDT) Glucose, Plasma 92 74 - 99 mg/dL 04/25/2025 10:01 PM EDT [facility] BUN, Plasma 14 8 - 23 mg/dL 04/25/2025 10:01 PM EDT [facility] Creatinine, Plasma 0.99 0.70 - 1.20 mg/dL 04/25/2025 10:01 PM EDT [facility] BUN/Creatinine Ratio 14 04/25/2025 10:01 PM EDT [facility] Sodium, Plasma 137 136 - 145 mmol/L 04/25/2025 10:01 PM EDT [facility] Potassium, Plasma 3.8 3.6 - 4.9 mmol/L 04/25/2025 10:01 PM EDT [facility] Chloride, Plasma 104 97 - 107 mmol/L 04/25/2025 10:01 PM EDT [facility] CO2, Plasma 25 22 - 29 mmol/L 04/25/2025 10:01 PM EDT [facility] Anion Gap 8 6 - 16 mmol/L 04/25/2025 10:01 PM EDT [facility] Total Calcium, Plasma 8.0(L) 8.9 - 10.2 mg/dL 04/25/2025 10:01 PM EDT [facility] Total Protein 5.7(L) 6.3 - 7.9 g/dL 04/25/2025 10:01 PM EDT [facility] Albumin, Plasma 3.1(L) 3.5 - 5.2 g/dL 04/25/2025 10:01 PM EDT [facility] AST, Plasma 33 10 - 50 U/L 04/25/2025 10:01 PM EDT [facility] ALT, Plasma 18 10 - 50 U/L 04/25/2025 10:01 PM EDT [facility] Alkaline Phosphatase, Plasma 132(H) 40 - 115 U/L 04/25/2025 10:01 PM EDT [facility] Total Bilirubin, Plasma 0.7 0.2 - 1.1 mg/dL 04/25/2025 10:01 PM EDT [facility] eGFRcr 85.6 mL/min/1.7 3m*2 04/25/2025 10:01 PM EDT [facility] Comment:Reported eGFRcr in m L/min/1.73m2 is based the CKD-EPI 2020 equation that does not use a race coefficient. Blood Venous blood specimen / Unknown Venipuncture / Unknown 04/25/2025 9:17 PM EDT 04/25/2025 9:30 PM EDT us Allen Chen MD LAB BLOOD ORDERABLES Final Re sult [facility] [address] [place] [address] * Transfuse RBC (04/25/2025 8:07 PM EDT) us Ruslan Lucas MD BLOOD TRANSFUSION ORDERABLES F inal Result * Transfuse RBC: 1 Units (04/25/2025 8:07 PM EDT) Result Magen Lucas MD BLOOD TRANSFUSION ORDERABLES F inal Result * PERIPHERAL IV (SM[employer] LINK) (04/25/2025 4:53 PM EDT) Narrative Ana Luisa Terrell RN - 04/25/2025 4:53 PM EDT Ana Luisa Terrell RN 04/25/2025 4:53 PM Insert peripheral IV Performed by: Ana Luisa Terrell RN Authorized by: Allen Chen MD Hand hygiene: Hand hygiene performed prior to insertion Inserted using aseptic techniques: Yes Preparation: Skin prepped with chg Orientation: Right Location: Forearm Catheter placed: Peripheral IV Catheter size: 20g/2.00in Line Technique: Ultrasound Guidance Number of attempts: 1 IV flushes: Without difficulty and positive blood return noted and IV luer locked Patient tolerance: Patient tolerated the procedure well, age appropriate response and there were no complications IV site covered with: Transparent semipermeable dressing Education provided to: Patient us Allen Chen MD IV THERAPY ORDERABLES Final R esult * EGD AMY LUIS THORNTON; 04/25/2025 (04/25/2025 4:47 PM EDT) Anatomical Region Laterality Modality Endoscopy Narrative 04/28/2025 7:33 AM EDT Table formatting from the original result was not included. Impression: Irregular Z-line 40 cm from the incisors The esophagus appeared normal. No varices Vascular ectasia in cardia, no active bleeding. No gastric varices Mild, generalized mosaic mucosa in the body of the stomach, greater curve of the stomach and lesser curve of the stomach; no bleeding was observed. 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 Recommendations Other - Continue to monitor H&H closely - Start iron supplementation IV and PO on discharge - Continue PPI - Continue antibiotics for total of 5-7 days for mortality benefit in cirrhosis patient with GI bleed( can switch to PO on discharge) - Findings discussed with patient and communicated to primary team Indication Gastrointestinal hemorrhage with melena Medications See anesthesia record for anesthesia administered medications. Staff Staff Role Yariel Ortega CRNA CRNA Konjeti, Venkata Rajesh, MD Proceduralist Max Wahl MD Fellow Koki Treviño, SERVANDO Endo Nurse Juan Pablo Mcknight MD Anesthesiologist Graciela Andrade Endo Insurance Follow Up Representative Preprocedure A history and physical has been performed, and patient medication allergies have been reviewed. The patient's tolerance of previous anesthesia has been reviewed. The risks and benefits of the procedure and the sedation options and risks were discussed with the patient. All questions were answered and informed consent obtained. Details of the Procedure The patient underwent monitored anesthesia care, which was administered by an anesthesia professional. The patient's blood pressure, heart rate, level of consciousness, oxygen saturation and respirations were monitored throughout the procedure. The scope was introduced through the mouth and advanced to the second part of the duodenum. Retroflexion was performed in the cardia, fundus and incisura. The patient experienced no blood loss. The procedure was not difficult. The patient tolerated the procedure well. There were no apparent adverse events. Attestation I was present for the entire procedure Specimens No specimens were documented in this log. Findings Irregular Z-line 40 cm from the incisors The esophagus appeared normal. No varices Vascular ectasia in cardia, no active bleeding. No gastric varices Mild, generalized mosaic mucosa in the body of the stomach, greater curve of the stomach and lesser curve of the stomach; no bleeding was observed. 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 us Allen Chen MD GI PROCEDURE ORDERABLES Final Result * Transfuse RBC (04/25/2025 3:23 PM EDT) us Allen Chen MD BLOOD TRANSFUSION ORDERABLES Final Result * Transfuse RBC: 1 Units (04/25/2025 3:23 PM EDT) us Allen Chen MD BLOOD TRANSFUSION ORDERABLES Final Result * ECHO, ADULT TRANSTHORACIC COMPLETE (04/25/2025 3:15 PM EDT) BSA 2.50 m2 NNAMDI ISCV Height 180.0 NNAMDI ISCV Weight 140.6 NNAMDI ISCV IVSd 8 mm NNAMDI ISCV LVIDd 55 mm NNAMDI ISCV LVPWd 8 mm NNAMDI ISCV LV MASS(C)D 159 g NNAMDI ISCV [facility] CV ECHO LV MASS INDEX 64 g/m2 NNAMDI ISCV LV RWT 0.29 mm NNAMDI ISCV LVIDs 36 mm NNAMDI ISCV LA dimension 42 mm NNAMDI ISCV Ao Root Diam 30 mm NNAMDI ISCV PA acc time 130 msec NNAMDI ISCV mean PAP 21 mmHg NNAMDI ISCV PA AK(ACCEL) 22.0 mmHg NNAMDI ISCV PA acc slope 1,041.0 cm/s2 NNAMDI ISCV MV E Vmax 114.9 cm/s NNAMDI ISCV MV A Vmax 105.6 cm/s NNAMDI ISCV MV E/A 1.1 cm/s NNAMDI ISCV LV Lat e' Velocity 14.0 cm/s NNAMDI ISCV Lat E/e' 8.2 NNAMDI ISCV LV Sept e' Augustin 9.2 cm/s NNAMDI ISCV Sep E/e' 12.5 NNAMDI ISCV Avg E/e' 10.3 NNAMDI ISCV Ao V2 VTI 41.7 cm NNAMDI ISCV Ao mean PG 11 mmHg NNAMDI ISCV Ao V2 Vmax 225.4 cm/s NNAMDI ISCV Ao max PG 20 mmHg NNAMDI ISCV Ao V2 mean 149.8 cm/s NNAMDI ISCV RV base 48 mm NNAMDI ISCV RV s' Augustin 17.5 cm/s NNAMDI ISCV TAPSE 28 mm NNAMDI ISCV Anatomical Region Laterality Modality Echocardiography Narrative 04/25/2025 5:04 PM EDT Based on the linear dimension and/or 2D volumes, the left ventricle is normal in size. There is normal left ventricular myocardial thickness and mass. The LVEF cannot be measured due to poor image quality but is grossly normal (>50%). The diastolic function is normal. Due to poor image quality, regional wall motion was not interpretable. The right ventricle was not well visualized. The right ventricular systolic function is grossly normal. No hemodynamically significant valvular disease. There is no recent study available for direct [id number] comparison. Left Ventricle Based on the linear dimension and/or 2D volumes, the left ventricle is normal in size. There is normal left ventricular myocardial thickness and mass. The LVEF cannot be measured due to poor image quality but is grossly normal (>50%). The diastolic function is normal. Due to poor image quality, regional wall motion was not interpretable. Right Ventricle The right ventricle was not well visualized. The right ventricular systolic function is grossly normal. The estimated global right ventricular systolic function based upon the tricuspid annular plane of systolic excursion (TAPSE) is normal (>=17 mm). The estimated global right ventricular systolic function based upon the TDI maximal systolic velocity is normal (>=9.5 cm/s). Unable to estimate the right ventricular systolic pressure (RVSP) due to inadequate TR signal. Left Atrium The left atrium is dilated by visual assessment. The interatrial septum is not well visualized. Right Atrium The right atrium was not well visualized. IVC/SVC The IVC was not well visualized, and an assumed pressure of 8mmHg was used for calculations. Mitral Valve The mitral valve leaflets are normal in appearance with no evidence of mitral valve prolapse. There is trace mitral regurgitation. There is no mitral stenosis. Tricuspid Valve The tricuspid valve is grossly normal in appearance. There is no tricuspid regurgitation. There is no tricuspid stenosis. Aortic Valve The aortic valve appears to be trileaflet. There is calcification of the aortic valve leaflets. There is no valvular regurgitation. There is no hemodynamically significant valvular aortic stenosis. The peak gradient is 20 mmHg. The mean gradient is 11 mmHg. Pulmonic Valve The pulmonic valve is normal in appearance. There is no pulmonic regurgitation. There is no pulmonic stenosis. Pericardium No pericardial effusion. Great Vessels The aortic root is normal in size. The sinus of Valsalva (aortic root) diameter is 30 mm by leading edge to leading edge method. The main pulmonary artery is not well visualized. Extracardiac There is no pleural effusion. Study Details A complete transthoracic echocardiogram using two-dimensional (2D), m-mode, color and spectral flow Doppler imaging was performed. During the study the apical, parasternal, subcostal and suprasternal view was captured. Overall the study quality was poor. The study was technically difficult. The study was technically difficult due to patient's body habitus. Height: 180.0 cm. Weight: 140.6 kg. BSA: 2.50 m2. Study Recommendation There is no recent study available for direct [id number] comparison. us Allen Chen MD CV ECHO PROCEDURES Final Resu lt * XR Foot Right 1 or 2 Views (04/25/2025 3:08 PM EDT) Anatomical Region Laterality Modality Lower Extremities, Foot Right Digital Radiography Impressions 04/25/2025 5:40 PM EDT Subacute fracture of the fifth metatarsal neck with slight lateral angulation of the distal fragment. Marked forefoot swelling. CRITICAL RESULT: No. COMMUNICATION: Per this written report. Drafted by Berto Zaidi MD on 04/25/2025 4:56 PM Final report signed by Berto Zaidi MD on 04/25/2025 5:40 PM Narrative 04/25/2025 5:40 PM EDT CLINICAL INDICATION: fall with R 3rd and 4th toe pain, possible fx TECHNIQUE: XR FOOT RIGHT 1 OR 2 VIEWS COMPARISON: None. FINDINGS: Postsurgical changes from arthroplasty of the first MTP joint. Linear metallic foreign body seen in the plantar and lateral soft tissues of the forefoot. There is a subacute appearing fracture of the fifth metatarsal neck. Severe dorsal forefoot swelling. Calcaneal enthesopathy. Degenerative changes at the second MTP joint. Procedure Note Berto Zaidi MD - 04/25/2025 CLINICAL INDICATION: fall with R 3rd and 4th toe pain, possible fx TECHNIQUE: XR FOOT RIGHT 1 OR 2 VIEWS COMPARISON: None. FINDINGS: Postsurgical changes from arthroplasty of the first MTP joint. Linearmetallic foreign body seen in the plantar and lateral soft tissues of theforefoot. There is a subacute appearing fracture of the fifth metatarsalneck. Severe dorsal forefoot swelling. Calcaneal enthesopathy.Degenerative changes at the second MTP joint. IMPRESSION: Subacute fracture of the fifth metatarsal neck with slight lateralangulation of the distal fragment. Marked forefoot swelling. CRITICAL RESULT: No. COMMUNICATION: Per this written report. Drafted by Berto Zaidi MD on 04/25/2025 4:56 PM Final report signed by Berto Zaidi MD on 04/25/2025 5:40 PM Allen Chen MD IMG XR PROCEDURES Final Resul t * Prepare Leukocyte Reduced RBC: 1 Units (04/25/2025 1:49 PM EDT) Product Code P1246Q00 BLOO D BANK Dispense Status Transfused BLOOD BANK Blood Expiration Date [id number] BLOOD BANK Unit Number [id number] B LOOD BANK Product Blood Type 5100 BLOOD BANK Blood Type O+ BLOOD BANK Crossmatch Compatible BLOOD BANK Other Ruslan Lucas MD BLOOD BANK PRODUCT ORDERABLES Final Result BLOOD BANK [address] [place] [address], * (ABNORMAL) Comprehensive metabolic panel (04/25/2025 12:45 PM EDT) Glucose, Plasma 86 74 - 99 mg/dL 04/25/2025 1:23 PM EDT [facility] BUN, Plasma 16 8 - 23 mg/dL 04/25/2025 1:23 PM EDT [facility] Creatinine, Plasma 1.06 0.70 - 1.20 mg/dL 04/25/2025 1:23 PM EDT [facility] BUN/Creatinine Ratio 15 04/25/2025 1:23 PM EDT [facility] Sodium, Plasma 140 136 - 145 mmol/L 04/25/2025 1:23 PM EDT [facility] Potassium, Plasma 3.9 3.6 - 4.9 mmol/L 04/25/2025 1:23 PM EDT [facility] Chloride, Plasma 107 97 - 107 mmol/L 04/25/2025 1:23 PM EDT [facility] CO2, Plasma 25 22 - 29 mmol/L 04/25/2025 1:23 PM EDT [facility] Anion Gap 8 6 - 16 mmol/L 04/25/2025 1:23 PM EDT [facility] Total Calcium, Plasma 8.1(L) 8.9 - 10.2 mg/dL 04/25/2025 1:23 PM EDT [facility] Total Protein 5.7(L) 6.3 - 7.9 g/dL 04/25/2025 1:23 PM EDT [facility] Albumin, Plasma 3.0(L) 3.5 - 5.2 g/dL 04/25/2025 1:23 PM EDT [facility] AST, Plasma 30 10 - 50 U/L 04/25/2025 1:23 PM EDT [facility] ALT, Plasma 21 10 - 50 U/L 04/25/2025 1:23 PM EDT [facility] Alkaline Phosphatase, Plasma 130(H) 40 - 115 U/L 04/25/2025 1:23 PM EDT [facility] Total Bilirubin, Plasma 0.3 0.2 - 1.1 mg/dL 04/25/2025 1:23 PM EDT [facility] eGFRcr 78.9 mL/min/1.7 3m*2 04/25/2025 1:23 PM EDT [facility] Comment:Reported eGFRcr in m L/min/1.73m2 is based the CKD-EPI 2020 equation that does not use a race coefficient. Blood Venous blood specimen / Unknown Venipuncture / Unknown 04/25/2025 12:45 PM EDT 04/25/2025 12:54 PM EDT us Allen Chen MD LAB BLOOD ORDERABLES Final Re sult [facility] [address] [place] [address] * (ABNORMAL) Hemogram (CBC) (04/25/2025 12:45 PM EDT) WBC Count 2.17(L) 3.70 - 10.30 10*3/uL LAB HEMATOLOGY METHOD 04/25/2025 3:00 PM EDT [facility] RBC Count 2.39(L) 4.60 - 6.10 10*6/uL LAB HEMATOLOGY METHOD 04/25/2025 3:00 PM EDT [facility] HGB 6.0(LL) 13.7 - 17.5 g/dL LAB HEMATOLOGY METHOD 04/25/2025 3:00 PM EDT [facility] HCT 21.3(L) 40.0 - 51.0 % LAB HEMATOLOGY METHOD 04/25/2025 3:00 PM EDT [facility] Platelet Count 72(L) 155 - 369 10*3/uL LAB HEMATOLOGY METHOD 04/25/2025 3:00 PM EDT [facility] MCV 89 79 - 98 fL LAB HEMATOLOGY METHOD 04/25/2025 3:00 PM EDT [facility] MCH 25.1(L) 26.0 - 32.0 pg LAB HEMATOLOGY METHOD 04/25/2025 3:00 PM EDT [facility] MCHC 28.2(L) 30.7 - 35.5 g/dL LAB HEMATOLOGY METHOD 04/25/2025 3:00 PM EDT [facility] RDW 14.9(H) 11.5 - 14.5 % LAB HEMATOLOGY METHOD 04/25/2025 3:00 PM EDT [facility] MPV 11.8 8.8 - 12.5 fL LAB HEMATOLOGY METHOD 04/25/2025 3:00 PM EDT [facility] nRBC 0.0 <=0.0 per 100 WBCs LAB HEMATOLOGY METHOD 04/25/2025 3:00 PM EDT [facility] Blood Venous blood specimen / Unknown Venipuncture / Unknown 04/25/2025 12:45 PM EDT 04/25/2025 1:00 PM EDT Allen Chen MD LAB BLOOD ORDERABLES Final Re sult [facility] [address] [place] [address] * Prepare Leukocyte Reduced RBC: 1 Units (04/25/2025 12:28 PM EDT) Product Code [id number] CH BLOO D BANK Dispense Status Transfused BLOOD BANK Blood Expiration Date [id number] BLOOD BANK Unit Number [id number] CH B LOOD BANK Product Blood Type 5100 BLOOD BANK Blood Type O+ BLOOD BANK Crossmatch Compatible BLOOD BANK Other Allen Chen MD BLOOD BANK PRODUCT ORDERABLES Final Result Performing Organization Address [facility] de Phone Number BLOOD BANK [address] documented in this encounter Visit Diagnoses Diagnosis GIB (gastrointestinal bleeding)- Primary Unspecified, hemorrhage of gastrointestinal tract Gastrointestinal hemorrhage with melena Class III obesity with body mass index (BMI) of 40.0 or higher (CMS/HCC) Other cirrhosis of liver (CMS/HCC) Right foot pain Pain in soft tissues of limb Generalized edema Edema Gastrointestinal hemorrhage with melena documented in this encounter Admitting Diagnoses Diagnosis GIB (gastrointestinal bleeding) Unspecified, hemorrhage of gastrointestinal tract Gastrointestinal hemorrhage with melena documented in this encounter Administered Medications Inactive Administered Medications - up to 3 most recent administrations Medication Order MAR Action Action Date Dose Rate Site acetaminophen (Tylenol) tablet 325 mg 325 mg, Oral, 3 times daily PRN, Starting on 04/26/25 at 1635, Until 04/27/25 at 1918, Routine, moderate pain, severe pain buPROPion SR (Wellbutrin SR) 12 hr tablet 150 mg 150 mg, Oral, Daily, First dose on Mon04/25/25 at 1415, Until Discontinued, Routine Given 04/27/2025 7:51 AM EDT 150 mg Given 04/26/2025 8:00 AM EDT 150 mg busPIRone (Buspar) tablet 20 mg 20 mg, Oral, 2 times daily, First dose on Mon04/25/25 at 1415, Until Discontinued, Routine Given 04/27/2025 7:51 AM EDT 20 mg Given 04/26/2025 9:15 PM EDT 20 mg Given 04/26/2025 8:00 AM EDT 20 mg furosemide (Lasix) injection 40 mg 40 mg, Intravenous, Every 8 hours, 6 doses, First dose on Mon04/25/25 at 1415, Last dose on Mon04/27/25 at 0615, Routine Given 04/27/2025 6:54 AM EDT 40 mg Given 04/26/2025 9:16 PM EDT 40 mg Given 04/26/2025 3:02 PM EDT 40 mg furosemide (Lasix) tablet 20 mg 20 mg, Oral, Daily, First dose on Mon04/27/25 at 0915, Until Discontinued, Routine Given 04/27/2025 8:55 AM EDT 20 mg gabapentin (Neurontin) capsule 600 mg 600 mg, Oral, 3 times daily, First dose on Mon04/25/25 at 1600, Until Discontinued, Routine Given 04/26/2025 3:02 PM EDT 600 mg Given 04/26/2025 8:00 AM EDT 600 mg Given 04/25/2025 8:00 PM EDT 600 mg gabapentin (Neurontin) capsule 800 mg 800 mg, Oral, 3 times daily, First dose (after last modification) on 04/26/25 at 2100, Until Discontinued, Routine Given 04/27/2025 3:44 PM EDT 800 mg Given 04/27/2025 7:50 AM EDT 800 mg Given 04/26/2025 9:15 PM EDT 800 mg hydrOXYzine HCl (Atarax) tablet 50 mg 50 mg, Oral, Every 6 hours PRN, Starting on 04/26/25 at 1045, Until 04/27/25 at 1918, itching Given 04/26/2025 5:23 PM EDT 50 mg Given 04/26/2025 11:12 AM EDT 50 mg levoFLOXacin (Levaquin) tablet 500 mg 500 mg, Oral, Daily, 5 doses, First dose on Mon04/26/25 at 1730, Last dose on Mon04/30/25 at 0900, Routine Given 04/27/2025 7:51 AM EDT 500 mg Given 04/26/2025 5:23 PM EDT 500 mg OLANZapine (ZyPREXA) tablet 5 mg 5 mg, Oral, Nightly, First dose on Mon04/25/25 at 2100, Until Discontinued, Routine Given 04/26/2025 11:01 PM EDT 5 mg Given 04/25/2025 8:01 PM EDT 5 mg oxyCODONE (Roxicodone) immediate release tablet 10 mg 10 mg, Oral, Every 8 hours, First dose on Mon04/25/25 at 1915, Until Discontinued, Routine Given 04/26/2025 3:03 AM EDT 10 mg Given 04/25/2025 6:23 PM EDT 10 mg oxyCODONE (Roxicodone) immediate release tablet 10 mg 10 mg, Oral, Once, 1 dose, On Mon04/25/25 at 2230, Routine Given 04/25/2025 9:45 PM EDT 10 mg oxyCODONE (Roxicodone) immediate release tablet 10 mg 10 mg, Oral, Once, 1 dose, On Mon04/26/25 at 1030, Routine Given 04/26/2025 9:43 AM EDT 10 mg oxyCODONE (Roxicodone) immediate release tablet 10 mg 10 mg, Oral, 3 times daily before meals, First dose on Mon04/26/25 at 1200, Until Discontinued, Routine Given 04/26/2025 11:52 AM EDT 10 mg oxyCODONE (Roxicodone) immediate release tablet 10 mg 10 mg, Oral, 3 times daily PRN, Starting on Mon04/26/25 at 1634, Until Mon04/27/25 at 1918, Routine, severe pain, moderate pain Given 04/26/2025 6:46 PM EDT 10 mg oxyCODONE ER (OxyCONTIN) 12 hr tablet 40 mg 40 mg, Oral, 2 times daily, First dose on Mon04/26/25 at 2100, Until Discontinued, Routine Given 04/27/2025 7:51 AM EDT 40 mg Given 04/26/2025 9:15 PM EDT 40 mg pantoprazole (Protonix) injection 40 mg 40 mg, Intravenous, 2 times daily, First dose on Mon04/25/25 at 2100, Until Discontinued, Routine Given 04/27/2025 7:51 AM EDT 40 mg Given 04/26/2025 9:14 PM EDT 40 mg Given 04/26/2025 8:00 AM EDT 40 mg sertraline (Zoloft) tablet 100 mg 100 mg, Oral, Daily, First dose on Mon04/26/25 at 0900, Until Discontinued, Routine Given 04/27/2025 7:51 AM EDT 100 mg Given 04/26/2025 8:00 AM EDT 100 mg sodium chloride 0.9 % flush 10 mL 10 mL, Intravenous, Every 12 hours, First dose on Mon04/25/25 at 1315, Until Discontinued, Routine Given 04/27/2025 7:52 AM EDT 10 mL Given 04/26/2025 9:16 PM EDT 10 mL Given 04/26/2025 9:43 AM EDT 10 mL sodium chloride 0.9 % flush 10 mL 10 mL, Intravenous, As needed, Starting on Mon04/25/25 at 1224, Until Mon04/27/25 at 1918, Routine, line care spironolactone (Aldactone) tablet 50 mg 50 mg, Oral, Daily, First dose on Mon04/26/25 at 0900, Until Discontinued, Routine Given 04/27/2025 7:51 AM EDT 50 mg Given 04/26/2025 8:00 AM EDT 50 mg tamsulosin (Flomax) 24 hr capsule 0.4 mg 0.4 mg, Oral, Nightly, First dose on Mon04/26/25 at 2100, Until Discontinued, Routine Given 04/26/2025 9:14 PM EDT 0.4 mg tiZANidine (Zanaflex) tablet 4 mg 4 mg, Oral, 2 times daily PRN, Starting on Mon04/26/25 at 1046, Until Mon04/27/25 at 1918, Routine, muscle spasms Given 04/26/2025 11:12 AM EDT 4 mg documented in this encounter Active and Recently Administered Medications Times are shown in EDT. Scheduled Medication Order 04/25/2025 04/26/2025 04/27/2025 buPROPion SR (Wellbutrin SR) 12 hr tablet 150 mg 150 mg, Oral, Daily, First dose on Mon04/25/25 at 1415, Until Discontinued, Routine 1509 (Not Given - Provider: Alicia Woo - Reason: NPO) 0800 (Given - Provider: Loida Hernandez) 0751 (Given - Provider: Werner Chahal, SERVANDO) busPIRone (Buspar) tablet 20 mg 20 mg, Oral, 2 times daily, First dose on Mon04/25/25 at 1415, Until Discontinued, Routine 1509 (Not Given - Provider: Alicia Woo - Reason: NPO)1999 (Given - Provider: Joanne Priest, SERVANDO) 0800 (Given - Provider: Loida Hernandez)211 (Given - Provider: Lakshmi Bustamante, SERVANDO) 0751 (Given - Provider: Werner Chahal, SERVANDO) furosemide (Lasix) injection 40 mg (COMPLETED) 40 mg, Intravenous, Every 8 hours, 6 doses, First dose on Mon04/25/25 at 1415, Last dose on Mon04/27/25 at 0615, Routine 1524 (Given - Provider: Alicia Woo)2245 (Given - Provider: Joanne Priest, SERVANDO) 0614 (Given - Provider: Joanne Priest, SERVANDO)1502 (Given - Provider: Loida Hernandez)2116 (Given - Provider: Lakshmi Bustamante, SERVANDO) 0654 (Given - Provider: Lakshmi Bustamante, SERVANDO) furosemide (Lasix) tablet 20 mg 20 mg, Oral, Daily, First dose on Mon04/27/25 at 0915, Until Discontinued, Routine 0855 (Given - Provider: Werner Chahal, SERVANDO) gabapentin (Neurontin) capsule 600 mg (CANCELED) 600 mg, Oral, 3 times daily, First dose on Mon04/25/25 at 1600, Until Discontinued, Routine 1607 (Not Given - Provider: Aliica Woo - Reason: Patient in procedure)1999 (Given - Provider: Joanne Priest, SERVANDO) 0800 (Given - Provider: Loida Hernandez)1502 (Given - Provider: Loida Hernandez) gabapentin (Neurontin) capsule 800 mg 800 mg, Oral, 3 times daily, First dose (after last modification) on Mon04/26/25 at 2100, Until Discontinued, Routine 2114 (Given - Provider: Lakshmi Bustamante RN) 075 (Given - Provider: Werner Chahal, SERVANDO)154 (Given - Provider: Werner Chahal, SERVANDO) levoFLOXacin (Levaquin) tablet 500 mg 500 mg, Oral, Daily, 5 doses, First dose on Mon04/26/25 at 1730, Last dose on Mon04/30/25 at 0900, Routine 172 (Given - Provider: Loida Hernandez) 075 (Given - Provider: Werner Chahal, SERVANDO) OLANZapine (ZyPREXA) tablet 5 mg 5 mg, Oral, Nightly, First dose on Mon04/25/25 at 2100, Until Discontinued, Routine 2000 (Given - Provider: Joanne Priest RN) 230 (Given - Provider: Lakshmi Bustamante RN) oxyCODONE (Roxicodone) immediate release tablet 10 mg (CANCELED) 10 mg, Oral, Every 8 hours, First dose on Mon04/25/25 at 1915, Until Discontinued, Routine 182 (Given - Provider: Alicia Woo)214 (Not Given - Provider: Joanne Priest, SERVANDO - Reason: Order changed - Comment: extra dose, moved to correct extra dose order) 0303 (Given - Provider: Joanne Priest, SERVANDO) oxyCODONE (Roxicodone) immediate release tablet 10 mg (COMPLETED) 10 mg, Oral, Once, 1 dose, On Mon04/25/25 at 2230, Routine 214 (Given - Provider: Joanne Priest RN - Comment: see med given at 214, attached to scheduled dosing, moved to correct one time dosing order.This was extra dose per Provider) oxyCODONE (Roxicodone) immediate release tablet 10 mg (COMPLETED) 10 mg, Oral, Once, 1 dose, On Mon04/26/25 at 1030, Routine 0943 (Given - Provider: Loida Hernandez) oxyCODONE (Roxicodone) immediate release tablet 10 mg (CANCELED) 10 mg, Oral, 3 times daily before meals, First dose on Mon04/26/25 at 1200, Until Discontinued, Routine 1152 (Given - Provider: Loida Hernandez) oxyCODONE ER (OxyCONTIN) 12 hr tablet 40 mg 40 mg, Oral, 2 times daily, First dose on 04/26/25 at 2100, Until Discontinued, Routine 2114 (Given - Provider: Lakshmi Bustamante, SERVANDO) 075 (Given - Provider: Werner Chahal, SERVANDO) pantoprazole (Protonix) injection 40 mg 40 mg, Intravenous, 2 times daily, First dose on Mon04/25/25 at 2100, Until Discontinued, Routine 1999 (Given - Provider: Joanne Priest RN) 0800 (Given - Provider: Loida Hernandez)2113 (Given - Provider: Lakshmi Bustamante, SERVANDO) 075 (Given - Provider: Werner Chahal, SERVANDO) sertraline (Zoloft) tablet 100 mg 100 mg, Oral, Daily, First dose on 04/26/25 at 0900, Until Discontinued, Routine 08 (Given - Provider: Loida Hernandez) 075 (Given - Provider: Werner Chahal, SERVANDO) sodium chloride 0.9 % flush 10 mL(Linked Group 1) 10 mL, Intravenous, Every 12 hours, First dose on Mon04/25/25 at 1315, Until Discontinued, Routine 1247 (Canceled Entry - Provider: Alicia Woo) 0305 (Given - Provider: Joanne Priest RN)0943 (Given - Provider: Loida Hernandez)2115 (Given - Provider: Lakshmi Bustamante, SERVANDO) 0145 (Not Given - Provider: Lakshmi Bustamante RN - Reason: Hold for condition: must add comment - Comment: Given with night meds)075 (Given - Provider: Werner Chahal RN) spironolactone (Aldactone) tablet 50 mg 50 mg, Oral, Daily, First dose on 04/26/25 at 0900, Until Discontinued, Routine 08 (Given - Provider: Loida Hernandez) 075 (Given - Provider: Werner Chahal RN) tamsulosin (Flomax) 24 hr capsule 0.4 mg 0.4 mg, Oral, Nightly, First dose on 04/26/25 at 2100, Until Discontinued, Routine 2113 (Given - Provider: Lakshmi Bustamante, SERVANDO) PRN Medication Order 04/25/2025 04/26/2025 04/27/2025 acetaminophen (Tylenol) tablet 325 mg(Linked Group 2) 325 mg, Oral, 3 times daily PRN, Starting on 04/26/25 at 1635, Until 04/27/25 at 1918, Routine, moderate pain, severe pain hydrOXYzine HCl (Atarax) tablet 50 mg 50 mg, Oral, Every 6 hours PRN, Starting on 04/26/25 at 1045, Until 04/27/25 at 1918, itching 1112 (Given - Provider: Loida Hernandez)1723 (Given - Provider: Loida Hernandez) oxyCODONE (Roxicodone) immediate release tablet 10 mg(Linked Group 2) 10 mg, Oral, 3 times daily PRN, Starting on 04/26/25 at 1634, Until 04/27/25 at 1918, Routine, severe pain, moderate pain 1846 (Given - Provider: Loida Hernandez) sodium chloride 0.9 % flush 10 mL(Linked Group 1) 10 mL, Intravenous, As needed, Starting on Mon04/25/25 at 1224, Until 04/27/25 at 1918, Routine, line care SUMAtriptan (Imitrex) tablet 25 mg 25 mg, Oral, Every 12 hours PRN, Starting on 04/26/25 at 1046, Until 04/27/25 at 1918, Routine, migraine tiZANidine (Zanaflex) tablet 4 mg 4 mg, Oral, 2 times daily PRN, Starting on 04/26/25 at 1046, Until 04/27/25 at 1918, Routine, muscle spasms 1112 (Given - Provider: Loida Hernandez) Linked Groups Order Group 1: Insert peripheral IV (COMPLETED) Once, On Mon04/25/25 at 1225, For 1 occurrence And Saline lock IV (CANCELED) Once, On Mon04/25/25 at 1225, For 1 occurrence And sodium chloride 0.9 % flush 10 mLJump to med 10 mL, Intravenous, Every 12 hours, First dose on Mon04/25/25 at 1315, Until Discontinued, Routine And sodium chloride 0.9 % flush 10 mLJump to med 10 mL, Intravenous, As needed, Starting on Mon04/25/25 at 1224, Until 04/27/25 at 1918, Routine, line care Group 2: oxyCODONE (Roxicodone) immediate release tablet 10 mgJump to med 10 mg, Oral, 3 times daily PRN, Starting on 04/26/25 at 1634, Until 04/27/25 at 1918, Routine, severe pain, moderate pain And acetaminophen (Tylenol) tablet 325 mgJump to med 325 mg, Oral, 3 times daily PRN, Starting on 04/26/25 at 1635, Until 04/27/25 at 1918, Routine, moderate pain, severe pain documented in this encounter Additional Health Concerns [...] documented as of this encounter Care Teams [employer] Work[employer] Relationship Specialty Start Date End Date López Alicea MD [address] [place] [address] PCP - General 02/24/25 Slade Lennon PA [address] [place] [address] Referring Physician Gastroenterology 03/19/25 documented as of this encounter
--- OUTSIDE RECORDS SUMMARY | 2025-04-25 16:25 | XMS_ITS | Encounter Summary ---
Author Organization Healthcare Address [address] [id number] Care Team Providers Care Lan Analyst Name Role Phone López Alicea MD Primary Care Provider [phone] Slade Lennon Unavailable Reason for Visit * Auth/Cert (Routine) Specialty Diagnoses / Procedures Referred By Contac t Referred To Contact Diagnoses GIB (gastrointestinal bleeding) Gastrointestinal hemorrhage with melena melena, GI bleed hgb 6.9 Ruslan Lucas MD [address] [place] [address] Phone: tel: fax: [facility] Inpatient [address] [place] [address] Phone: tel: Referral ID Status Reason Start Date Expiration Date Visits Re quested Visits Authorized [id number] 1 1 Encounter Details Date Type Department Care Team (Late st Contact Info) Description 04/25/2025 4:25 PM EDT Anesthesia Event [facility] Endoscopy [address] [place] [address] Juan Pablo Mcknight MD [address] [place] [address] Anesthesia Record Procedure Summary Procedure [...] any [facility] in the [facility] were you [facility] or living in a intermediate (including now)? No 02/27/2025 Utilities Answer Date [...] a 64 y.o. 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 Of note, patient was admitted from09/30/2024 - 10/03/2024 at [facility] with a hemoglobin of 5.5 [...] that he underwent EGD last Monday at [facility]. 09/2024: Mac 4 (VL), 7.5 ETT, grade [...] ABG No results found for: PHART , YKI3IIW , PO2ART , SO2ART , BEART , GZO2CFJ , HCTART , SODIUMART , POTASSIUMART , POCTCL , POCGLU , IONCALART , LACTATE Lab Results Component Value Date CAION 4.3 (L) 02/25/2025 ECHO No echocardiogram results found for the past 12 months PFTs No results found for: ZXP0PVP , [id number] , GRG4HLF , FVCPRED BP Readings from Last 5 [...] Date BACK SURGERY N/A Back Surgery from [email or web address] GALLBLADDER SURGERY N/A Gallbladder Surgery from [email or web address] TONSILECTOMY, ADENOIDECTOMY, BILATERAL MYRINGOTOMY AND TUBES N/A Tonsillectomy With Adenoidectomy from [email or web address] [6] Social History Tobacco Use Smoking status: Never Smokeless tobacco: Never Substance Use Topics Alcohol use: No Drug use: Never documented in this encounter Plan of Treatment Upcoming Encounters Date Type Department Care Team (Late st Contact Info) Description 06/03/2025 8:30 AM EDT Clinical Support [facility] [address] [place] [address] 06/03/2025 10:00 AM EDT Office Visit [facility] [address] [place] [address] Daniel Marques MD [address] [place] [address] documented as of this encounter [...] documented as of this encounter Care Teams Lan Analyst Relationship Specialty Start Date End Date López Alicea MD [address] [place] [address] PCP - General 02/24/25 Slade Lennon PA [address] [place] [address] Referring Physician Gastroenterology 03/19/25 documented as of this encounter
--- OUTSIDE RECORDS SUMMARY | 2025-05-30 12:46 | XMS_ITS | Clinical Summary ---
Author Organization [facility] Address [address] [place] [address] Care Team Providers Care Veneer Clipper Name Role Phone López Alicea MD Primary [...] Chronic pain syndrome Call 911. Don't prime. [place] in 1 nostril for overdose. Repeat in [...] Type Department Care Team Description 05/22/2025 Refill [facility] [address] [place] [address] López Alicea MD Idiopathic gout, unspecified chronicity, unspecified site; Anxiety; Dysthymia; Major depressive disorder, recurrent episode, moderate degree; Potassium deficiency 05/13/2025 Telephone [facility] [address] [facility] [place] [address] López Alicea MD Med Refill 05/12/2025 Refill [facility] [address] [place] [address] López Alicea MD Chronic pain syndrome 05/09/2025 Telephone [facility] [address] [place] [address] López Alicea MD Call from [facility] 05/07/2025 Refill [facility] [address] [place] [address] López Alicea MD Nausea 05/04/2025 Refill [facility] [address] [place] [address] López Alicea MD 04/30/2025 Transitional Care Management Telephone Encounter [facility] [address] [place] [address] Del Grossman RN 04/29/2025 Transitional Care Management Telephone Encounter [facility] [address] [place] [address] Jane Mckinnon, SERVANDO 04/29/2025 Transitional Care Management Telephone Encounter [facility] [address] [place] [address] Jane Mckinnon, SERVANDO 04/28/2025 Readmission Management [facility] [address] [facility] [place] [address] Rosangela Steen RN 04/09/2025 Telephone [facility] [address] [facility] [place] [address] López Alicea MD Medication Problem 04/07/2025 Refill [facility] [address] [facility] [place] [address] López Alicea MD Chronic pain syndrome; Degeneration of intervertebral disc of lumbar region 03/11/2025 Results Follow-Up [facility] [address] [facility] [address] López Alicea MD 03/10/2025 11:30 AM EDT Office Visit [facility] [address] [facility] [place] [address] López Alicea MD Gastrointestinal hemorrhage associated with gastric ulcer (Primary Dx); 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; Chronic pain syndrome; Degeneration of intervertebral disc of lumbar region with discogenic back pain and lower extremity pain; Degeneration of intervertebral disc of lumbar region; Anemia, unspecified type; Type 2 diabetes mellitus without complication, without long-term current use of insulin 03/10/2025 Travel 03/06/2025 Refill [facility] [address] [facility] [place] [address] Fito Garay MD Chronic pain syndrome; Degeneration of intervertebral disc of lumbar region 03/06/2025 Refill [facility] [address] [place] [address] López Alicea MD Migraine without aura and without status migrainosus, not intractable 03/04/2025 Transitional Care Management Telephone Encounter [facility] [address] [place] [address] Del Grossman RN 03/03/2025 Readmission Management [facility] [address] [place] [address] Renee Malcolm RN from Last [...] Description 08/01/2025 2:30 PM EDT Office Visit [facility] [address] [facility] [place] [address] López Alicea MD [address] [facility] [place] [address] Health Maintenance Due Date Last [...] 2:10 PM EDT Performed at: 01 - [facility] [id number] Mask Designer: David Mcduffie PhD, Phone: [phone] Patient Fasting: N López Alicea MD LAB BLOOD ORDERABLES Final Resu lt [facility] ([facility]UL[facility]) [address] [place] [address], [facility] [address] [place] [address], [place] [phone] * Ammonia (03/10/2025 11:38 AM EDT) Ammonia 83 40 - 200 ug/dL [facility] Blood 03/10/2025 11:3 8 AM EDT 03/10/2025 Narrative [facility] ([facility]) - 03/11/2025 2:10 PM EDT Performed at: 01 - [address] [id number] Mask Designer: David Mcduffie PhD, Phone: [phone] Patient Fasting: N López Alicea MD LAB BLOOD ORDERABLES Final Resu lt Performing Organization Address City/[facility]/ZIP Co de Phone Number [facility] (AMBULATORY) [address] [place] [address], [facility] [address] [place] [address], * (ABNORMAL) Comprehensive Metabolic Panel (03/10/2025 11:38 [...] 11:3 8 AM EDT 03/10/2025 Narrative [facility] ([facility]) - 03/11/2025 2:10 PM EDT Performed at: [address] [place] [id number] Mask Designer: David Mcduffie PhD, Phone: [phone] Patient Fasting: N us López Alicea MD LAB BLOOD ORDERABLES Final Resu lt [facility] ([facility]) [address] [place] [address], [facility] [address] [place] [address], * (ABNORMAL) Hemoglobin A1c (04/29/2024 12:45 PM EDT) [facility] Hemoglobin A1C 4.6(L) 4.8 - 5.6 % [facility] Comment: Prediabetes: 5.7 - 6.4 Diabetes: >6.4 Glycemic control for adults with diabetes: <7.0 Blood 04/29/2024 12:4 5 PM EDT 04/29/2024 Narrative [facility] (AMBULATORY) - 04/30/2024 8:18 AM EDT Performed at: [address] [id number] Mask Designer: David Mcduffie PhD, Phone: [phone] Patient Fasting: Y us López Alicea MD LAB BLOOD ORDERABLES Final Resu lt [facility] ([facility]UL[facility]) [address] [place] [address], [place] [phone] [facility] [address] [place] [address], [place] [phone] from Last 3 Months or Most Recently Relevant to Health Maintenance Insurance MEDICAID [place] [employer] PPO Advance Directives Documents on File Type Date Recorded Patient Purchase Price Analyst Expl anation LIVING WILL - SCAN 03/04/2022 12:[address]IVE OF 06/25/19 Care Teams Veneer Clipper Relationship Specialty Start Date End Date López Alicea MD [address] [place] [address] PCP - General 07/16/15
--- OUTSIDE RECORDS SUMMARY | 2025-05-30 12:47 | XMS_ITS | Encounter Summary ---
Author Organization [facility] Address [address] [place] [address] Care Team Providers Care Channel Marketing Program Manager Name Role Phone López Alicea MD Primary Care Provider [phone] Slade Lennon Unavailable Encounter Details Date Type Department Care Team (Late st Contact Info) Description 04/23/2025 Telephone [facility] [address] [place] [address] Monserrat Martins [place] [id number] Social History Tobacco Use Types Packs/Day Years [...] time in the past 12 m [facility], were you homeless or living in a mcfp (including now)? No 02/27/2025 Utilities Answer Date [...] Telephone Encounter - Monserrat Martins - 04/23/2025 11:47 AM EDT Mr Hendrickson [...] Support [facility] [place] [address] [place] [address] 06/03/2025 10:00 AM EDT Office Visit [facility] [place] [address] [place] [address] Daniel Marques MD [address] [place] [address] documented as of this encounter [...] documented as of this encounter Care Teams Channel Marketing Program Manager Relationship Specialty Start Date End Date López Alicea MD [address] [place] [address] PCP - General 02/24/25 Slade Lennon PA [address] [place] [address] Referring Physician Gastroenterology 03/19/25 documented as of this encounter
--- OUTSIDE RECORDS SUMMARY | 2025-05-30 12:47 | XMS_ITS | Encounter Summary ---
Author Organization [facility] Address [address] [place] [address] Care Team Providers Care Floor Specialist Name Role Phone López Alicea MD Primary Care Provider [phone] Slade Lennon Unavailable Encounter Details Date Type [...] any time in the past 12 m [facility], were you homeless or living in a [...] Several days 04/25/2025 7:21 AM EDT Dominick Corneilus Feeling down, depressed, or hopeless Several days [...] Description 06/03/2025 8:30 AM EDT Clinical Support [facility] [place] [address] [place] [address] 06/03/2025 10:00 AM EDT Office Visit [facility] [place] [address] [place] [address] Daniel Marques MD [address] [place] [address] documented as of this encounter Goals Goal [...] documented as of this encounter Care Teams Floor Specialist Relationship Specialty Start Date End Date López Alicea MD [address] [facility] [place] [address] PCP - General 02/24/25 Slade Lennon PA [address] [place] [address] Referring Physician Gastroenterology 03/19/25 documented as of this encounter
--- OUTSIDE RECORDS SUMMARY | 2025-05-30 12:47 | XMS_ITS | Encounter Summary ---
Author Organization [facility] Address [address] [place] [address] Care Team Providers Care Epic Director Name Role Phone López Alicea MD Primary Care Provider [phone] Slade Lennon Unavailable Reason for Visit * Reason Comments Appointment Confirmation and rem inders Encounter Details Date Type Department Care Team (Late st Contact Info) Description 04/23/2025 Telephone [facility] [address] [place] [address] [place] [address] Appointment (Confirmation and reminders) Social History Tobacco [...] any time in the past 12 m [facility], were you homeless or living in [...] Clinical Support [facility] [address] [place] [address] 06/03/2025 10:00 AM EDT Office Visit [facility] [address] [place] [address] Daniel Marques MD [address] [place] [address] documented as of this encounter [...] documented as of this encounter Care Teams Epic Director Relationship Specialty Start Date End Date López Alicea MD [address] [place] [address] PCP - General 02/24/25 Slade Lennon PA [address] [place] [address] Referring Physician Gastroenterology 03/19/25 documented as of this encounter
--- OUTSIDE RECORDS SUMMARY | 2025-05-30 12:47 | XMS_ITS | Encounter Summary ---
Author Organization Healthcare Address [address] [place] [address] Care Team Providers Care Eye Surgeon Name Role Phone López Alicea MD Primary Care Provider [phone] Slade Lennon Unavailable Teresita Garcia LPN Unavailable Unavailabl e Encounter Details Date Type Department Care Team (Late st Contact Info) Description 05/07/2025 Orders Only [facility] [address] [place] [address] Sandra Soto, PharmD Social History Tobacco Use [...] any time in the past 12 m [facility], were you homeless or living in a fpc (including now)? No 02/27/2025 Utilities Answer Date [...] Description 06/03/2025 8:30 AM EDT Clinical Support [facility] [address] [place] [address] 06/03/2025 10:00 AM EDT Office Visit [facility] [place] [address] [place] [address] Daniel Marques MD [address] [place] [address] documented as of this encounter Goals Goal [...] documented as of this encounter Care Teams Eye Surgeon Relationship Specialty Start Date End Date López Alicea MD [address] [place] [address] PCP - General 02/24/25 Slade Lennon PA [facility] [place] [address] Referring Physician Gastroenterology 03/19/25 Teresita Garcia LPN [facility] [place] TCM Nurse 04/28/25 05/28/25 documented as of this encounter
--- OUTSIDE RECORDS SUMMARY | 2025-05-30 12:47 | XMS_ITS | Clinical Summary ---
Author Organization [facility] Address [address] [place] [address] Care Team Providers Care Hydraulic Spinner Name Role Phone López Alicea MD Primary Care Provider [phone] Slade Lennon Unavailable Allergies No known active [...] Department Care Team Description 05/07/2025 Orders Only [facility] [address] [place] [phone] Sandra Soto, PharmD 05/01/2025 Telephone [facility] [address] [place] [phone] Sandra Soto, PharmD 04/28/2025 Patient Outreach [facility] [address], [address] [place] [address] Teresita Garcia, SCRAP PICKER TCM Call 04/25/2025 4:25 PM EDT Anesthesia Event [facility] [address] [place] [phone] Juan Pablo Mcknight MD 04/25/2025 11:16 AM EDT - 04/27/2025 5:17 PM EDT Hospital Encounter [facility] Inpatient [address] [place] [phone] Allen Chen MD Ramani, Ashok A, MD Gastrointestinal hemorrhage with melena (Primary Dx) Discharge Disposition: Home or Self Care 04/25/2025 9:00 AM EDT Office Visit [facility] [place] [address] [address] Daniel Marques MD Anemia due to other cause, not classified (Primary Dx) 04/25/2025 Travel 04/23/2025 Telephone [facility] [place] [address] [phone] Monserrat Martins 04/23/2025 Telephone [facility] [place] [address] [address] Monserrat Martins Appointment (Confirmation and reminders) 03/19/2025 Telephone [facility] [place] [phone] [address] Monserrat Martins Appointment (scheduling) 03/19/2025 Telephone [facility] [place] [phone] [phone] Monserrat Martins Appointment (scheduling) 03/19/2025 Telephone [facility] [address] [place] [address] Monserrat Martins Referral - Liver Txp 03/13/2025 Patient Outreach [place] [address] [place] [address] Teresita Garcia LPN Follow-up 03/05/2025 Patient Outreach [place] [address] [place] [address] Teresita Garcia LPN TCM Call 03/04/2025 Patient Outreach [address] [place] [address] Teresita Garcia LPN TCM Call 02/24/2025 5:00 PM EDT - 03/03/2025 6:13 PM EDT Hospital Encounter [facility] Inpatient [address] [place] [address] Lukas Moreira MD Wimberly, Katherine E, MD Tahir, Muhammad W, MD Gastrointestinal hemorrhage associated with gastritis, unspecified [...] time in the past 12 m [facility], were you homeless or living in a custodial (including now)? No 02/27/2025 Utilities Answer Date [...] 06/03/2025 8:30 AM EDT Clinical Support [facility] [place] [address] [place] [phone] 06/03/2025 10:00 AM EDT Office Visit [facility] [place] [address] [place] [phone] Daniel Marques MD [address] [place] [address] Health Maintenance Due Date Last Done Comments [facility]-Infant/Child/Adol SDOH Screenings 1960 Diabetes: Dental Exam 12/28/1971 [...] Annual Wellness (AWV) 10/07/2023 10/07/2022, 09/03/2021, 08/17/2020 [id number] Vaccine ( season) 2024 08/02/2022, 09/03/2021, 02/08/2021 [...] Care Plan 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 WBC Count 1.36(L) 3.70 - 10.30 10*3/uL LAB HEMATOLOGY METHOD 04/27/2025 6:24 AM EDT [facility] RBC Count 2.84(L) 4.60 - 6.10 10*6/uL LAB HEMATOLOGY METHOD 04/27/2025 6:24 AM EDT [facility] HGB 7.3(L) 13.7 - 17.5 g/dL LAB HEMATOLOGY METHOD 04/27/2025 6:24 AM EDT [facility] HCT 24.6(L) 40.0 - 51.0 % LAB HEMATOLOGY METHOD 04/27/2025 6:24 AM EDT [facility] Platelet Count 92(L) 155 - 369 10*3/uL LAB HEMATOLOGY METHOD 04/27/2025 6:24 AM EDT [facility] MCV 87 79 - 98 fL LAB HEMATOLOGY METHOD 04/27/2025 6:24 AM EDT [facility] MCH 25.7(L) 26.0 - 32.0 pg LAB HEMATOLOGY METHOD 04/27/2025 6:24 AM EDT [facility] MCHC 29.7(L) 30.7 - 35.5 g/dL LAB HEMATOLOGY METHOD 04/27/2025 6:24 AM EDT [facility] RDW 14.4 11.5 - 14.5 % LAB HEMATOLOGY METHOD 04/27/2025 6:24 AM EDT [facility] MPV 12.7(H) 8.8 - 12.5 fL LAB HEMATOLOGY METHOD 04/27/2025 6:24 AM EDT [facility] nRBC 0.0 <=0.0 per 100 WBCs LAB HEMATOLOGY METHOD 04/27/2025 6:24 AM EDT [facility] Differential Type Automated LAB HEMATOLOGY METHOD 04/27/2025 6:24 AM EDT [facility] Neutrophils % 57 % LAB HEMATOLOGY METHOD 04/27/2025 6:24 AM EDT [facility] Lymphocytes % 29 % LAB HEMATOLOGY METHOD 04/27/2025 6:24 AM EDT [facility] Monocytes % 10 % LAB HEMATOLOGY METHOD 04/27/2025 6:24 AM EDT [facility] Eosinophils % 4 % LAB HEMATOLOGY METHOD 04/27/2025 6:24 AM EDT [facility] Basophils % 0 % LAB HEMATOLOGY METHOD 04/27/2025 6:24 AM EDT [facility] Immature Granulocytes % 0 % LAB HEMATOLOGY METHOD 04/27/2025 6:24 AM EDT [facility] Neutrophils Absolute 0.78(LL) 1.60 - 6.10 10*3/uL LAB HEMATOLOGY METHOD 04/27/2025 6:24 AM EDT [facility] Lymphocytes Absolute 0.39(L) 1.20 - 3.90 10*3/uL LAB HEMATOLOGY METHOD 04/27/2025 6:24 AM EDT [facility] Monocytes Absolute 0.14(L) 0.30 - 0.90 10*3/uL LAB HEMATOLOGY METHOD 04/27/2025 6:24 AM EDT [facility] Eosinophils Absolute 0.05 0.00 - 0.50 10*3/uL LAB HEMATOLOGY METHOD 04/27/2025 6:24 AM EDT [facility] Basophils Absolute 0.00 0.00 - 0.10 10*3/uL LAB HEMATOLOGY METHOD 04/27/2025 6:24 AM EDT [facility] Immature Granulocytes Absolute 0.00 0.00 - 0.06 10*3/uL LAB HEMATOLOGY METHOD 04/27/2025 6:24 AM EDT [facility] Blood Venous blood specimen / Unknown Venipuncture / Unknown 04/27/2025 6:09 AM EDT 04/27/2025 6:14 AM EDT Narrative [facility] - 04/27/2025 6:24 AM EDT Therapeutic decision making should be based on absolute values, rather than percentages. us Ruslan Lucas MD LAB BLOOD ORDERABLES Final Res ult Performing Organization Address City/[facility]/ZIP Co de Phone Number [facility] [address] [place] [address] * Phosphorus, Plasma (04/27/2025 6:08 AM EDT) Only the most recent of3 resultswithin the time period is included. Phosphorus, Plasma 4.0 2.5 - 4.5 mg/dL 04/27/2025 6:45 AM EDT [facility] Blood Venous blood specimen / Unknown Venipuncture / Unknown 04/27/2025 6:08 AM EDT 04/27/2025 6:14 AM EDT us Ruslan Lucas MD LAB BLOOD ORDERABLES Final Res ult Performing Organization Address City/[facility]/ZIP Co de Phone Number [facility] [address] [place] [address] * Magnesium, Plasma (04/27/2025 6:08 AM EDT) Only the most recent of3 resultswithin the time period is included. Magnesium, Plasma 1.9 1.9 - 2.4 mg/dL 04/27/2025 6:45 AM EDT [facility] Blood Venous blood specimen / Unknown Venipuncture / Unknown 04/27/2025 6:08 AM EDT 04/27/2025 6:14 AM EDT us Ruslan Lucas MD LAB BLOOD ORDERABLES Final Res ult [facility] [address] [place] [address] * (ABNORMAL) Basic Metabolic Panel, Plasma (04/27/2025 6:08 AM EDT) Only the most recent of7 resultswithin the time period is included. Glucose, Plasma 98 74 - 99 mg/dL 04/27/2025 6:45 AM EDT [facility] BUN, Plasma 20 8 - 23 mg/dL 04/27/2025 6:45 AM EDT [facility] Creatinine, Plasma 1.21(H) 0.70 - 1.20 mg/dL 04/27/2025 6:45 AM EDT [facility] BUN/Creatinine Ratio 17 04/27/2025 6:45 AM EDT [facility] Sodium, Plasma 140 136 - 145 mmol/L 04/27/2025 6:45 AM EDT [facility] Potassium, Plasma 3.7 3.6 - 4.9 mmol/L 04/27/2025 6:45 AM EDT [facility] Chloride, Plasma 102 97 - 107 mmol/L 04/27/2025 6:45 AM EDT [facility] CO2, Plasma 27 22 - 29 mmol/L 04/27/2025 6:45 AM EDT [facility] Anion Gap 11 6 - 16 mmol/L 04/27/2025 6:45 AM EDT [facility] Total Calcium, Plasma 7.9(L) 8.9 - 10.2 mg/dL 04/27/2025 6:45 AM EDT [facility] eGFRcr 67.3 mL/min/1.7 3m*2 04/27/2025 6:45 AM EDT [facility] Comment:Reported eGFRcr in m L/min/1.73m2 is based the CKD-EPI 2020 equation that does not use a race coefficient. Blood Venous blood specimen / Unknown Venipuncture / Unknown 04/27/2025 6:08 AM EDT 04/27/2025 6:14 AM EDT Ruslan Lucas MD LAB BLOOD ORDERABLES Final Res ult Performing Organization Address City/[facility] Co de Phone Number [facility] [address] [place] [address] * (ABNORMAL) Hemoglobin and Hematocrit, Blood (04/26/2025 9:24 PM EDT) Only the most recent of9 resultswithin the time period is included. HGB 7.2(L) 13.7 - 17.5 g/dL LAB HEMATOLOGY METHOD 04/26/2025 9:39 PM EDT [facility] HCT 25.0(L) 40.0 - 51.0 % LAB HEMATOLOGY METHOD 04/26/2025 9:39 PM EDT [facility] Blood Venous blood specimen / Unknown Venipuncture / Unknown 04/26/2025 9:24 PM EDT 04/26/2025 9:30 PM EDT Ruslan Lucas MD LAB BLOOD ORDERABLES Final Res ult Performing Organization Address [facility] Co de Phone Number [facility] [address] [place] [address] * ECG Adult (04/26/2025 4:53 PM EDT) EKG DIAGNOSIS CLASS Abnormal MUSE ECG Ventricular Rate 67 BPM MUSE ECG Atrial Rate 67 BPM MUSE ECG AZ Interval 202 ms MUSE ECG QRSD Interval 102 ms MUSE ECG QT Interval 452 ms MUSE ECG QTC Interval 477 ms MUSE ECG P Allons 48 degrees MUSE ECG R Allons 6 degrees MUSE ECG T Wave Allons 50 degrees MUSE ECG Diagnosis Normal sinus rhythm MUSE ECG Diagnosis ST & T wave abnormlaities seen in anterior leads. MUSE ECG Diagnosis Abnormal ECG MUSE ECG Diagnosis MUSE ECG Diagnosis Confirmed by Torey Lopez ([id number]) on 04/27/2025 10:46:18 AM MUSE ECG 04/26/2025 4:53 PM EDT 04/27/2025 10:46 AM EDT us Ruslan Lucas MD ECG ORDERABLES Final Result MUSE ECG * Lavender Top (04/26/2025 8:30 AM EDT) Extra Hold for add-ons 04/26/2025 11:02 AM EDT [facility] Comment:Auto resulted. Blood Venous blood specimen / Unknown 04/26/2025 8:30 AM EDT 04/26/2025 8:46 AM EDT us Ruslan Lucas MD LAB BLOOD ORDERABLES Final Res ult Performing Organization Address City/[facility]/ZIP Co de Phone Number [facility] [address] [place] [address] * Light Green Top (04/26/2025 8:30 AM EDT) Extra Hold for add-ons 04/26/2025 11:02 AM EDT [facility] Comment:Auto resulted. Blood Venous blood specimen / Unknown 04/26/2025 8:30 AM EDT 04/26/2025 8:46 AM EDT us Ruslan Lucas MD LAB BLOOD ORDERABLES Final Res ult Performing Organization Address [facility] Co de Phone Number [facility] [address] [place] [address] * (ABNORMAL) Hepatic function panel (04/26/2025 8:30 AM EDT) Conjugated Bilirubin, Plasma 0.4(H) <=0.3 mg/dL 04/26/2025 9:15 AM EDT [facility] Alkaline Phosphatase, Plasma 139(H) 40 - 115 U/L 04/26/2025 9:15 AM EDT [facility] Total Bilirubin, Plasma 0.9 0.2 - 1.1 mg/dL 04/26/2025 9:15 AM EDT [facility] Albumin, Plasma 3.3(L) 3.5 - 5.2 g/dL 04/26/2025 9:15 AM EDT [facility] Total Protein 6.5 6.3 - 7.9 g/dL 04/26/2025 9:15 AM EDT [facility] ALT, Plasma 19 10 - 50 U/L 04/26/2025 9:15 AM EDT [facility] AST, Plasma 35 10 - 50 U/L 04/26/2025 9:15 AM EDT [facility] Blood Venous blood specimen / Unknown Venipuncture / Unknown 04/26/2025 8:30 AM EDT 04/26/2025 8:43 AM EDT us Ruslan Lucas MD LAB BLOOD ORDERABLES Final Res ult [facility] [address] [place] [address] * (ABNORMAL) PT/INR (04/25/2025 9:17 PM EDT) Only the most recent of2 resultswithin the time period is included. Prothrombin Time 15.1(H) 12.0 - 14.3 sec LAB COAGULATION METHOD 04/25/2025 9:44 PM EDT [facility] INR 1.2(H) 0.9 - 1.1 LAB COAGULATION METHOD 04/25/2025 9:44 PM EDT [facility] Blood Venous blood specimen / Unknown Venipuncture / Unknown 04/25/2025 9:17 PM EDT 04/25/2025 9:30 PM EDT Narrative [facility] - 04/25/2025 9:44 PM EDT OPTIMAL INR RANGES FOR PATIENT ON ORAL ANTICOAGULANT THERAPY Prevention of venous thromboembolism INR 2.0 to 3.0 In patients with heart disease: Atrial fibrillation INR 2.0 to 3.0 Valvular heart disease INR 2.0 to 3.0 Tissue heart valves INR 2.0 to 3.0 Mechanical prosthetic valves INR 2.5 to 3.5 Prevention of recurrent MS INR 2.5 to 3.5 us Allen Chen MD LAB BLOOD ORDERABLES Final Re sult [facility] [address] [place] [address] * (ABNORMAL) CBC W/O Differential (04/25/2025 9:17 PM EDT) Only the most recent of3 resultswithin the time period is included. WBC Count 2.68(L) 3.70 - 10.30 10*3/uL LAB HEMATOLOGY METHOD 04/25/2025 9:37 PM EDT [facility] RBC Count 2.91(L) 4.60 - 6.10 10*6/uL LAB HEMATOLOGY METHOD 04/25/2025 9:37 PM EDT [facility] HGB 7.6(L) 13.7 - 17.5 g/dL LAB HEMATOLOGY METHOD 04/25/2025 9:37 PM EDT [facility] HCT 25.3(L) 40.0 - 51.0 % LAB HEMATOLOGY METHOD 04/25/2025 9:37 PM EDT [facility] Platelet Count 74(L) 155 - 369 10*3/uL LAB HEMATOLOGY METHOD 04/25/2025 9:37 PM EDT [facility] MCV 87 79 - 98 fL LAB HEMATOLOGY METHOD 04/25/2025 9:37 PM EDT [facility] MCH 26.1 26.0 - 32.0 pg LAB HEMATOLOGY METHOD 04/25/2025 9:37 PM EDT [facility] MCHC 30.0(L) 30.7 - 35.5 g/dL LAB HEMATOLOGY METHOD 04/25/2025 9:37 PM EDT [facility] RDW 14.4 11.5 - 14.5 % LAB HEMATOLOGY METHOD 04/25/2025 9:37 PM EDT [facility] MPV 10.7 8.8 - 12.5 fL LAB HEMATOLOGY METHOD 04/25/2025 9:37 PM EDT [facility] nRBC 0.0 <=0.0 per 100 WBCs LAB HEMATOLOGY METHOD 04/25/2025 9:37 PM EDT [facility] Blood Venous blood specimen / Unknown Venipuncture / Unknown 04/25/2025 9:17 PM EDT 04/25/2025 9:30 PM EDT us Ruslan Lucas MD LAB BLOOD ORDERABLES Final Res ult [facility] [address] [place] [address] * (ABNORMAL) Comprehensive metabolic panel (04/25/2025 9:17 PM EDT) Only the most recent of3 resultswithin the time period is included. Glucose, Plasma 92 74 - 99 mg/dL 04/25/2025 10:01 PM EDT [facility] BUN, Plasma 14 8 - 23 mg/dL 04/25/2025 10:01 PM EDT [facility] Creatinine, Plasma 0.99 0.70 - 1.20 mg/dL 04/25/2025 10:01 PM EDT [facility] BUN/Creatinine Ratio 14 04/25/2025 10:01 PM EDT [facility] Sodium, Plasma 137 136 - 145 mmol/L 04/25/2025 10:01 PM EDT [facility] Potassium, Plasma 3.8 3.6 - 4.9 mmol/L 04/25/2025 10:01 PM EDT [facility] Chloride, Plasma 104 97 - 107 mmol/L 04/25/2025 10:01 PM EDT [facility] CO2, Plasma 25 22 - 29 mmol/L 04/25/2025 10:01 PM EDT [facility] Anion Gap 8 6 - 16 mmol/L 04/25/2025 10:01 PM EDT [facility] Total Calcium, Plasma 8.0(L) 8.9 - 10.2 mg/dL 04/25/2025 10:01 PM EDT [facility] Total Protein 5.7(L) 6.3 - 7.9 g/dL 04/25/2025 10:01 PM EDT [facility] Albumin, Plasma 3.1(L) 3.5 - 5.2 g/dL 04/25/2025 10:01 PM EDT [facility] AST, Plasma 33 10 - 50 U/L 04/25/2025 10:01 PM EDT [facility] ALT, Plasma 18 10 - 50 U/L 04/25/2025 10:01 PM EDT [facility] Alkaline Phosphatase, Plasma 132(H) 40 - 115 U/L 04/25/2025 10:01 PM EDT [facility] Total Bilirubin, Plasma 0.7 0.2 - 1.1 mg/dL 04/25/2025 10:01 PM EDT [facility] eGFRcr 85.6 mL/min/1.7 3m*2 04/25/2025 10:01 PM EDT [facility] Comment:Reported eGFRcr in m L/min/1.73m2 is based the CKD-EPI 2020 equation that does not use a race coefficient. Blood Venous blood specimen / Unknown Venipuncture / Unknown 04/25/2025 9:17 PM EDT 04/25/2025 9:30 PM EDT Allen Chen MD LAB BLOOD ORDERABLES Final Re sult [facility] [address] [place] [address] * Transfuse RBC (04/25/2025 8:07 PM EDT) Only the most recent of2 resultswithin the time period is included. Ruslan Lucas MD BLOOD TRANSFUSION ORDERABLES F [...] IV THERAPY ORDERABLES Final R esult * LUIS ADEN; 04/25/2025 (04/25/2025 4:47 PM EDT) Anatomical Region [...] Rajesh, MD Proceduralist Max Wahl MD Fellow Koik Treviño RN Endo Nurse Juan Pablo Mcknight MD Anesthesiologist Graciela Andrade Y Endo Office Rep Preprocedure A history and physical has been [...] mean PAP 21 mmHg NNAMDI ISCV PA AZ(ACCEL) 22.0 mmHg NNAMDI ISCV PA acc slope [...] NNAMDI ISCV Ao V2 Vmax 225.4 cm/s NNMADI ISCV Ao max PG 20 mmHg NNAMDI [...] is no recent study available for direct xlml-rb-oraw comparison. Left Ventricle Based on the linear [...] is no recent study available for direct [id number]-[id number] comparison. us Allen Chen MD CV ECHO [...] the time period is included. Product Code [id number] BLOO D BANK Dispense Status Transfused BLOOD BANK Blood Expiration Date [id number] BLOOD BANK Unit Number [id number] B LOOD BANK Product Blood Type 5100 BLOOD BANK Blood Type O+ BLOOD BANK Crossmatch Compatible BLOOD BANK Other Ruslan Lucas MD BLOOD BANK PRODUCT ORDERABLES Final Result Performing Organization Address City/State/[facility] Co de Phone Number BLOOD BANK [address] [place] [address], * Type and Screen (04/25/2025 9:57 AM EDT) ABO/Rh O Positive 04/25/2025 9:57 AM EDT BLOOD BANK Antibody Screen Negative 04/25/2025 9:57 AM EDT BLO[facility] BANK Specimen Expiration 04/28/2025 23:59 04/25/2025 9:57 AM EDT BLOOD BANK Blood Venous blood specimen / Unknown Venipuncture / Unknown 04/25/2025 9:57 AM EDT 04/25/2025 10:14 AM EDT Daniel Marques MD LAB BLOOD BANK TEST ORDERABLES Final Result BLOOD BANK [address] [place] [address], * (ABNORMAL) Pain Management, Quantitative Urine Drug Testing (04/25/2025 7:26 AM EDT) Alpha [place] Alprazolam <20 <20 ng/mL 04/27 7:18 PM EDT [facility] Alpha [place] Midazolam <20 <20 ng/mL 2024 7:18 PM EDT [facility] [place] Triazolam <20 <20 ng/mL 2024 7:18 PM EDT [facility] Alprazolam <10 <10 ng/mL 04/27/2025 7:18 PM EDT [facility] Aminoclonazepam <20 <20 ng/mL 7:18 PM EDT [facility] Amphetamine <50 <50 ng/mL 04/27/2025 7:18 PM EDT [facility] Benzoylecgonine <50 <50 ng/mL 7:18 PM EDT [facility] Buprenorphine <10 <10 ng/mL 04/27/2025 7:18 PM EDT [facility] Buprenorphine Glucuronide <50 <50 ng/mL 04/27/2025 7:18 PM EDT [facility] Butalbital <50 <50 ng/mL 04/27/2025 7:18 PM EDT [facility] 9 Carboxy THC <10 <10 ng/mL 04/27/2025 7:18 PM EDT [facility] 9 Carboxy THC Glucuronide <25 <25 ng/mL 04/27/2025 7:18 PM EDT [facility] Clonazepam <10 <10 ng/mL 04/27/2025 7:18 PM EDT [facility] Codeine <50 <50 ng/mL 04/27/2025 7:18 PM EDT [facility] Codeine Glucuronide <50 <50 ng/mL 04/27 7:18 PM EDT [facility] Cyclobenzaprine <50 <50 ng/mL 07/27/202 5 7:18 PM EDT [facility] Desmethyl Tramadol <50 <50 ng/mL 2024 7:18 PM EDT [facility] Diazepam <10 <10 ng/mL 04/27/2025 7:18 PM EDT [facility] EDDP - Methadone Metabolite <50 <50 ng/mL 04/27/2025 7:18 PM EDT [facility] Fentanyl <1 <1 ng/mL 04/27/2025 7:18 PM EDT [facility] Hydrocodone <50 <50 ng/mL 04/27/2025 7:18 PM EDT [facility] Hydromorphone <50 <50 ng/mL 04/27/2025 7:18 PM EDT [facility] Hydromorphone Glucuronide <50 <50 ng/mL 04/27/2025 7:18 PM EDT [facility] Lorazepam <20 <20 ng/mL 04/27/2025 7:18 PM EDT [facility] Lorazepam Glucuronide <50 <50 ng/mL 04/27/2025 7:18 PM EDT [facility] MDA <50 <50 ng/mL 04/27/2025 7:18 PM EDT [facility] MDMA <50 <50 ng/mL 04/27/2025 7:18 PM EDT [facility] Meperidine <50 <50 ng/mL 04/27/2025 7:18 PM EDT [facility] Methadone <50 <50 ng/mL 04/27/2025 7:18 PM EDT [facility] Methamphetamine <50 <50 ng/mL 7:18 PM EDT [facility] Methylphenidate <50 <50 ng/mL 7:18 PM EDT [facility] 6 Monoacetyl morphine <10 <10 ng/mL 04/27/2025 7:18 PM EDT [facility] Morphine <50 <50 ng/mL 04/27/2025 7:18 PM EDT [facility] Morphine Glucuronide <50 <50 ng/mL 04/02 7:18 PM EDT [facility] Naloxone <50 <50 ng/mL 04/27/2025 7:18 PM EDT [facility] Naloxone Glucuronide <50 <50 ng/mL 04/02 7:18 PM EDT [facility] Norbuprenorphine <10 <10 ng/mL 04/27/20 7:18 PM EDT [facility] Norbuprenorphine Glucuronide <50 <50 ng/mL 04/27/2025 7:18 PM EDT [facility] Nordiazepam <20 <20 ng/mL 04/27/2025 7:18 PM EDT [facility] Norfentanyl <2 <2 ng/mL 04/27/2025 7:18 PM EDT [facility] Normeperidine <50 <50 ng/mL 04/27/2025 7:18 PM EDT [facility] PCP Quant, Ur <50 <50 ng/mL 04/27/2025 7:18 PM EDT [facility] Phenobarbital <50 <50 ng/mL 04/27/2025 7:18 PM EDT [facility] Oxazepam <20 <20 ng/mL 04/27/2025 7:18 PM EDT [facility] Oxazepam Glucuronide <50 <50 ng/mL 04/02 7:18 PM EDT [facility] Oxycodone >1,000(H) <50 ng/mL 04/27/2025 7:18 PM EDT [facility] Oxymorphone <50 <50 ng/mL 04/27/2025 7:18 PM EDT [facility] Oxymorphone Glucuronide >1,000(H) <50 ng/mL 04/27/2025 7:18 PM EDT [facility] Secobarbital <50 <50 ng/mL 04/27/2025 7:18 PM EDT [facility] Tramadol <50 <50 ng/mL 04/27/2025 7:18 PM EDT [facility] Temazepam <20 <20 ng/mL 04/27/2025 7:18 PM EDT [facility] Temazepam Glucuronide <50 <50 ng/mL 04/27/2025 7:18 PM EDT [facility] Urine Urine specimen obtained by clean catch procedure / Unknown Non-blood Collection / Unknown 04/25/2025 7:26 AM EDT 04/25/2025 8:04 AM EDT Narrative [facility] - 04/27/2025 7:18 PM [...] laboratory. Test performed by LC-MS/MS at the [facility]. This test was developed and its performance characteristics determined by [facility]. It has not been cleared or approved by the FDA. The laboratory is regulated under CLIA as qualified to perform high-complexity testing. This test is used for clinical purposes. Norman Rodney MD LAB URINE ORDERABLES Final Resul t [facility] [address] [place] [address] * Alcohol Urine (04/25/2025 7:26 AM EDT) Alcohol Urine Negative Negative 04/25/2025 11:54 AM EDT [facility] Urine Urine specimen obtained by clean catch procedure / Unknown Non-blood Collection / Unknown 04/25/2025 7:26 AM EDT 04/25/2025 8:04 AM EDT Narrative [facility] - 04/25/2025 11:54 AM EDT The correlation between urine and serum ethanol concentration is highly variable. Test performed by Gas Chromatography at the [facility]. This test was developed and its performance characteristics determined by [facility]. It has not been cleared or approved by the FDA.The laboratory is regulated under CLIA as qualified to perform high-complexity testing. This test is used for clinical purposes only. The correlation between urine and serum ethanol concentration is highly variable. Test performed by Gas Chromatography at the [facility]. This test was developed and its performance characteristics determined by [facility]. It has not been cleared or approved by the FDA.The laboratory is regulated under CLIA as qualified to perform high-complexity testing. This test is used for clinical purposes only. Norman Rodney MD LAB URINE ORDERABLES Final Resul t [facility] [address] [place] [address] * (ABNORMAL) Comprehensive Urine Drug Screening, Qualitative Assay, >= 27 Drug Classes (57:26 AM EDT) Acetaminophen Positive(A) Negative 04/25/2025 2:36 PM EDT [facility] Alprazolam Negative Negative 04/25/2025 2:36 PM EDT [facility] Amantadine Negative Negative 04/25/2025 2:36 PM EDT [facility] Amitriptyline Negative Negative 04/25/2025 2:36 PM EDT [facility] Amphetamine Negative Negative 04/25/2025 2:36 PM EDT [facility] Atenolol Negative Negative 04/25/2025 2:36 PM EDT [facility] Benzoylecgonine Negative Negative 2:36 PM EDT [facility] Bisoprolol Negative Negative 04/25/2025 2:36 PM EDT [facility] Bupropion Positive(A) Negative 04/25/2025 2:36 PM EDT [facility] Butalbital Negative Negative 04/25/2025 2:36 PM EDT [facility] Carbamazepine Negative Negative 04/25/2025 2:36 PM EDT [facility] Carisoprodol Negative Negative 04/25/2025 2:36 PM EDT [facility] Chlorpheniramine Negative Negative 04/25/20 2:36 PM EDT [facility] Citalopram Negative Negative 04/25/2025 2:36 PM EDT [facility] Clindamycin Negative Negative 04/25/2025 2:36 PM EDT [facility] Clonidine Negative Negative 04/25/2025 2:36 PM EDT [facility] Clopidogrel / Ticlopidine Negative Negative 04/25/2025 2:36 PM EDT [facility] Cocaethylene Negative Negative 04/25/2025 2:36 PM EDT [facility] Cocaine Negative Negative 04/25/2025 2:36 PM EDT [facility] Codeine Negative Negative 04/25/2025 2:36 PM EDT [facility] Cyclobenzaprine Negative Negative 2:36 PM EDT [facility] Desvenlafaxine Negative Negative 04/25/2025 2:36 PM EDT [facility] Dextromethorphan Negative Negative 04/25/20 2:36 PM EDT [facility] Diazepam Negative Negative 04/25/2025 2:36 PM EDT [facility] Diltiazem Negative Negative 04/25/2025 2:36 PM EDT [facility] Diphenhydramine Negative Negative 2:36 PM EDT [facility] Doxepine Negative Negative 04/25/2025 2:36 PM EDT [facility] Doxylamine Negative Negative 04/25/2025 2:36 PM EDT [facility] EDDP-Methadone metabolite Negative Negative 04/25/2025 2:36 PM EDT [facility] Fentanyl Negative Negative 04/25/2025 2:36 PM EDT [facility] Fluconazole Negative Negative 04/25/2025 2:36 PM EDT [facility] Fluoxetine Negative Negative 04/25/2025 2:36 PM EDT [facility] Guaifenesin Negative Negative 04/25/2025 2:36 PM EDT [facility] Haloperidol Negative Negative 04/25/2025 2:36 PM EDT [facility] Heroin/6-NIYA Negative Negative 04/25/2025 2:36 PM EDT [facility] Hydrocodone Negative Negative 04/25/2025 2:36 PM EDT [facility] Hydroxyzine / Cetirizine metabolite Positive(A) Negative 04/25/2025 2:36 PM EDT [facility] Ibuprofen Negative Negative 04/25/2025 2:36 PM EDT [facility] Imipramine Negative Negative 04/25/2025 2:36 PM EDT [facility] Ketamine Negative Negative 04/25/2025 2:36 PM EDT [facility] Labetolol Negative Negative 04/25/2025 2:36 PM EDT [facility] Lamotrigine Negative Negative 04/25/2025 2:36 PM EDT [facility] Levetiracetam Negative Negative 04/25/2025 2:36 PM EDT [facility] Lidocaine Negative Negative 04/25/2025 2:36 PM EDT [facility] MDA Negative Negative 04/25/2025 2:36 PM EDT [facility] MDMA Negative Negative 04/25/2025 2:36 PM EDT [facility] Memantine Negative Negative 04/25/2025 2:36 PM EDT [facility] Meperidine Negative Negative 04/25/2025 2:36 PM EDT [facility] Meprobamate Negative Negative 04/25/2025 2:36 PM EDT [facility] Metaxalone Negative Negative 04/25/2025 2:36 PM EDT [facility] Methamphetamine Negative Negative 2:36 PM EDT [facility] Methocarbamol Negative Negative 04/25/2025 2:36 PM EDT [facility] Methylecgonine Negative Negative 04/25/2025 2:36 PM EDT [facility] Metoclopramide Negative Negative 04/25/2025 2:36 PM EDT [facility] Metoprolol Negative Negative 04/25/2025 2:36 PM EDT [facility] Metronidazole Negative Negative 04/25/2025 2:36 PM EDT [facility] Midazolam Negative Negative 04/25/2025 2:36 PM EDT [facility] Midazolam Metabolite Negative Negative 04/25/2025 2:36 PM EDT [facility] Mirtazapine Negative Negative 04/25/2025 2:36 PM EDT [facility] Misc Test Result Positive(A) Negative 025 2:36 PM EDT [facility] Comment: Positive: Gabapentin Positive: Olanzapine Naproxen Negative Negative 04/25/2025 2:36 PM EDT [facility] Nefazodone Negative Negative 04/25/2025 2:36 PM EDT [facility] Norfentanyl Negative Negative 04/25/2025 2:36 PM EDT [facility] Nortriptyline Negative Negative 04/25/2025 2:36 PM EDT [facility] Ordanstron Negative Negative 04/25/2025 2:36 PM EDT [facility] Oxcarbazepine Negative Negative 04/25/2025 2:36 PM EDT [facility] Oxycodone Positive(A) Negative 04/25/2025 2:36 PM EDT [facility] Paroxethine Negative Negative 04/25/2025 2:36 PM EDT [facility] Phenobarbital Negative Negative 04/25/2025 2:36 PM EDT [facility] Phentermine Negative Negative 04/25/2025 2:36 PM EDT [facility] Phenytoin Negative Negative 04/25/2025 2:36 PM EDT [facility] Primidone Negative Negative 04/25/2025 2:36 PM EDT [facility] Promethazine Positive(A) Negative 04/25/2025 2:36 PM EDT [facility] Propofol Negative Negative 04/25/2025 2:36 PM EDT [facility] Propranolol Negative Negative 04/25/2025 2:36 PM EDT [facility] Quetiapine Negative Negative 04/25/2025 2:36 PM EDT [facility] Quinine Negative Negative 04/25/2025 2:36 PM EDT [facility] Rantidine Negative Negative 04/25/2025 2:36 PM EDT [facility] Sertraline Positive(A) Negative 04/25/2025 2:36 PM EDT [facility] Spironolactone Negative Negative 04/25/2025 2:36 PM EDT [facility] Tizanidine Negative Negative 04/25/2025 2:36 PM EDT [facility] Topiramate Negative Negative 04/25/2025 2:36 PM EDT [facility] Tramadol Negative Negative 04/25/2025 2:36 PM EDT [facility] Trazadone/ Trazadone metabolite Negative Negative 04/25/2025 2:36 PM EDT [facility] Trimethoprim Negative Negative 04/25/2025 2:36 PM EDT [facility] Valproic Acid Negative Negative 04/25/2025 2:36 PM EDT [facility] Venlafaxine Negative Negative 04/25/2025 2:36 PM EDT [facility] Verapamil Negative Negative 04/25/2025 2:36 PM EDT [facility] Zolpidem Negative Negative 04/25/2025 2:36 PM EDT [facility] Xylazine Negative Negative 04/25/2025 2:36 PM EDT [facility] Urine Urine specimen obtained by clean catch procedure / Unknown Non-blood Collection / Unknown 04/25/2025 7:26 AM EDT 04/25/2025 8:04 AM EDT Norman Rodney MD LAB URINE ORDERABLES Final Resul t Performing Organization Address City/[facility] Co de Phone Number [facility] [address] [place] [address] * HEPATITIS B SURFACE ANTIBODY, QUANTITATIVE (04/25/2025 7:06 AM EDT) Hepatitis B Surface Antibody, Quantitative <8.00 NonReactiv e: <8, Grayzone: 8 - <12, Reactive: >= 12 mIU/mL 04/25/2025 8:56 AM EDT [facility] Comment: Nonreactive. Individual is considered not immune to HBV infection. Blood Venous blood specimen / Unknown Venipuncture / Unknown 04/25/2025 7:06 AM EDT 04/25/2025 7:21 AM EDT Norman Rodney MD LAB BLOOD ORDERABLES Final Resul t [facility] [address] [place] [address] * Alpha fetoprotein, serum (04/25/2025 7:06 AM EDT) Alpha Fetoprotein, Serum 3.7 <10.0 ng/mL 04/25/2025 8:01 AM EDT [facility] Blood Venous blood specimen / Unknown Venipuncture / Unknown 04/25/2025 7:06 AM EDT 04/25/2025 7:22 AM EDT Narrative [facility] - 04/25/2025 8:01 AM EDT Performed by [employer] electrochemiluminescent immunoassay which is traceable to the [address] [place] [address] IR WHO Reference standard 72/255. Results obtained with different test methods or kits cannot be used interchangeably. us Norman Rodney MD LAB BLOOD ORDERABLES Final Resul t Performing Organization Address City/[facility]/ZIP Co de Phone Number [facility] [address] [place] [address] * Hepatitis A Antibody IgG (04/25/2025 7:06 AM EDT) Hepatitis A Antibody IgG Negative Negative 04/25/2025 8:56 AM EDT [facility] Blood Venous blood specimen / Unknown Venipuncture / Unknown 04/25/2025 7:06 AM EDT 04/25/2025 7:21 AM EDT us Norman Rodney MD LAB BLOOD ORDERABLES Final Resul t Performing Organization Address [facility] [place] [address] * Hepatitis C Antibody (04/25/2025 7:06 AM EDT) Hepatitis C Antibody Negative Negative 04/25/2025 8:02 AM EDT [facility] Blood Venous blood specimen / Unknown Venipuncture / Unknown 04/25/2025 7:06 AM EDT 04/25/2025 7:21 AM EDT us Norman Rodney MD LAB BLOOD ORDERABLES Final Resul t Performing Organization Address City/[facility]/ZIP Co de Phone Number [facility] [address] [place] [address] * Nicotine Cotinine Metabolite (04/25/2025 7:06 AM EDT) NICOTINE <5 <5 ng/mL 04/26/2025 3:1 6 PM EDT [facility] Cotinine <5 <5 ng/mL 04/26/2025 3:1 6 PM EDT [facility] Blood Venous blood specimen / Unknown Venipuncture / Unknown 04/25/2025 7:06 AM EDT 04/25/2025 7:19 AM EDT Narrative [facility] - 04/26/2025 3:16 PM EDT Testing performed by LC-MS/MS at the [facility]. This test was developed and its performance characteristics determined by [facility]. This assay has not been cleared by the FDA. The laboratory is regulated under CLIA as qualified to perform high-complexity testing. This test is used for clinical purposes. Norman Rodney MD LAB BLOOD ORDERABLES Final Resul t Performing Organization Address City/[facility]/ZIP Co de Phone Number [facility] [address] [place] [address] * ABO/Rh (04/25/2025 7:06 AM EDT) ABO/Rh O Positive 04/25/2025 7:01 AM EDT [facility]LO[facility] Blood Venous blood specimen / Unknown Venipuncture / Unknown 04/25/2025 7:06 AM EDT 04/25/2025 7:22 AM EDT Norman Rodney MD LAB BLOOD BANK TEST ORDERABLES F inal Result BLOOD BANK [address] [place] [address] * Hepatitis B Surface Antigen (04/25/2025 7:06 AM EDT) Hepatitis B Surf Antigen Negative Negative 04/25/2025 8:56 AM EDT [facility] Blood Venous blood specimen / Unknown Venipuncture / Unknown 04/25/2025 7:06 AM EDT 04/25/2025 7:21 AM EDT us Norman Rodney MD LAB BLOOD ORDERABLES Final Resul t [facility] [address] [place] [address] * Helicobacter pylori Antigen (03/02/2025 3:53 PM EDT) [facility] Helicobacter pylori Antigen Result Negative Negative 03/03/2025 8:22 AM EDT [facility] Stool Rectum structure / Unknown Non-blood Collection / Unknown 03/02/2025 3:53 PM EDT 03/02/2025 4:32 PM EDT Seema Quintanilla MD LAB MICROBIOLOGY - GENERAL O RDERABLES Final Result Performing Organization Address City/[facility]/[place] [address] * POCT glucose meter (03/01/2025 8:23 AM EDT) Only the most recent of10 resultswithin the time period is included. [facility] POCT Glucose 92 74 - 99 mg/dL [...] for testing. Comment 03/01/2025 8:25 AM EDT [facility] Impregnation Operator ID Sandra Parada 03/01/2025 8:25 AM EDT [facility] Device ID [id number] 03/01/2025 8:25 AM EDT [facility] Specimen Type POC Capillary 03/01/2025 8:25 AM EDT [facility] Blood Capillary blood specimen / Unknown 03/01/2025 8:23 AM EDT 03/01/2025 8:25 AM EDT Seema Quintanilla MD LAB POINT OF CARE TE ST DOCKED DEVICE UNSOLICITED RESULTS Final Result [facility] [address] [place] [address] * ED HIV 1/2 Antibody/Antigen Screen w/Reflex to HIV 1/2 Differentiation (02/24/2025 6:44 PM EDT) HIV 1 & 2 Antibody/Antigen Screen Non Reactive Non Reactive 02/24/2025 7:37 PM EDT [facility] Comment:Screening for HIV 1 & 2 antibodies, and P24 antigen is NONREACTIVE. No confirmatory testing is required. Blood Venous blood specimen / Unknown Venipuncture / Unknown 02/24/2025 6:44 PM EDT 02/24/2025 6:56 PM EDT us Lukas Moreira MD LAB BLOOD ORDERABLES Final Res ult [facility] [address] [place] [address] from Last 3 Months or Most Recently Relevant to Health Maintenance Additional Health Concerns Active Problems Noted Date Diagnosed Date Autogenerated Problem 02/26/2025 Autogenerated Problem 04/25/2025 Insurance [place] [employer] [employer] [place] Member Subscriber Plan / Payer (Ef fective 2025-Present) Name:Chema Hendrickson Relation to Subscriber:Self Name:Chema Hendrickson Payer ID:Not on file Group ID:Not on file Type:Not on file Address: [address] [place] [phone] Advance Directives * Full Code (Latest Code [...] updated to appropriate status: Yes Care Teams Hydraulic Spinner Relationship Specialty Start Date End Date López Alicea MD [facility] [place] [address] PCP - General 02/24/25 Slade Lennon PA [address] [phone] Referring Physician Gastroenterology 03/19/25
[2025-05-30 12:48] LABS: Adenovirus F 40/41, stool Not Detected (NotDetected); Cyclospora Cayetanesis Not Detected (NotDetected); Plesimonas Shigalloides, PCR Not Detected (NotDetected); Salmonella, PCR Not Detected (NotDetected); Shiga-like toxin E coli Not Detected (NotDetected); Shigella Enterovasive E coli Not Detected (NotDetected); Vibrio, PCR Not Detected (NotDetected); Yersinia Entercolitica, PCR Not Detected (NotDetected)
--- OUTSIDE RECORDS SUMMARY | 2025-05-30 12:48 | XMS_ITS | Encounter Summary ---
Author Organization Healthcare Address [address] [place] [address] Care Team Providers Care Janitor Custodian Name Role Phone López Alicea MD Primary Care Provider [phone] Teresita Garcia LPN Unavailable Unavailabl e Salde Lennon Unavailable Teresita Garcia LPN Unavailable Unavailabl e Encounter Details Date Type Department Care Team (Late st Contact Info) Description 01/14/2025 Orders Only External Location [address] [place] [address] Provider, External Social History Tobacco Use Types [...] Description 06/03/2025 8:30 AM EDT Clinical Support [facility] [address] [place] [address] 06/03/2025 10:00 AM EDT Office Visit [facility] [address] [place] [address] Daniel Marques MD [address] [place] [address] documented as of this encounter Procedures Procedure [...] on filedocumented in this encounter Care Teams Janitor Custodian Relationship Specialty Start Date End Date López Alicea MD [address] [place] [address] PCP - General 02/24/25 Teresita Garcia LPN [facility] TCM Nurse 03/04/25 04/03/25 Slade Lennon PA [address] [place] [address] Referring Physician Gastroenterology 03/19/25 Teresita Garcia LPN [facility] TCM Nurse 04/28/25 05/28/25 documented as of this encounter
--- OUTSIDE RECORDS SUMMARY | 2025-05-30 12:48 | XMS_ITS | Encounter Summary ---
Author Organization Healthcare Address [address] [place] [address] Care Team Providers Care University President Name Role Phone López Alicea MD Primary Care Provider [phone] Teresita Garcia LPN Unavailable Unavailabl e Slade Lennon Unavailable Teresita Garcia LPN Unavailable Unavailabl e Encounter Details Date Type Department Care Team (Late st Contact Info) Description 11/22/2024 Orders Only External Location [address] [place] [address] Provider, External Social History Tobacco Use Types [...] [facility] [address] [place] [address] 06/03/2025 10:00 AM EDT Office Visit [facility] [address] [place] [address] Daniel Marques MD [address] [place] [address] documented as of this encounter Procedures Procedure [...] on filedocumented in this encounter Care Teams University President Relationship Specialty Start Date End Date López Alicea MD [address] [place] [address] PCP - General 02/24/25 Teresita Garcia [facility]PN [facility] 03/04/25 04/03/25 Slade Lennon PA [address] [place] [address] Referring Physician Gastroenterology 03/19/25 Teresita Garcia LPN [facility] 04/28/25 05/28/25 documented as of this encounter
--- OUTSIDE RECORDS SUMMARY | 2025-05-30 12:48 | XMS_ITS | Encounter Summary ---
Author Organization Healthcare Address [address] [place] [address] Care Team Providers Care Quantitative Researcher Name Role Phone López Alicea MD Primary Care Provider [phone] Teresita Garcia LPN Unavailable Unavailabl e Slade Lennon Unavailable Teresita Garcia LPN Unavailable Unavailabl e Encounter Details Date Type Department Care Team (Late st Contact Info) Description 10/17/2024 Orders Only External Location [address] [place] [address] Provider, External Social History Tobacco Use Types [...] Description 06/03/2025 8:30 AM EDT Clinical Support [facility] [address] [place] [address] 06/03/2025 10:00 AM EDT Office Visit [facility] [address] [place] [address] Daniel Marques MD [address] [place] [address] documented as of this encounter Procedures Procedure [...] on filedocumented in this encounter Care Teams Quantitative Researcher Relationship Specialty Start Date End Date López Alicea MD [address] [place] [address] PCP - General 02/24/25 [facility]resita Garcia [facility] 03/04/25 04/03/25 Slade Lennon PA [address] [place] [address] Referring Physician Gastroenterology 03/19/25 [facility]resita Garcia [facility] 04/28/25 05/28/25 documented as of this encounter
--- OUTSIDE RECORDS SUMMARY | 2025-05-30 12:48 | XMS_ITS | Encounter Summary ---
Author Organization Healthcare Address [address] [place] [address] Care Team Providers Care Wire Insulator Name Role Phone López Alicea MD Primary Care Provider [phone] Teresita Garcia LPN Unavailable Unavailabl e Slade Lennno Unavailable Teresita Garcia LPN Unavailable Unavailabl e Encounter Details Date Type Department Care Team (Late st Contact Info) Description 10/17/2024 Orders Only External Location [address] [place] [address] Provider, External Social History Tobacco Use Types [...] [facility] [address] [place] [address] 06/03/2025 10:00 AM EDT Office Visit [facility] [address] [place] [address] Daniel Marques MD [address] [place] [address] documented as of this encounter Procedures Procedure [...] on filedocumented in this encounter Care Teams Wire Insulator Relationship Specialty Start Date End Date López Alicea MD [address] [place] [address] PCP - General 02/24/25 [facility]resita Garcia [facility] 03/04/25 04/03/25 Slade Lennon PA [address] [place] [address] Referring Physician Gastroenterology 03/19/25 Teresita Garcia [facility] 04/28/25 05/28/25 documented as of this encounter
--- OUTSIDE RECORDS SUMMARY | 2025-05-30 12:48 | XMS_ITS | Encounter Summary ---
Author Organization Healthcare Address [address] [place] [address] Care Team Providers Care Edger Runner Name Role Phone López Alicea MD Primary Care Provider [phone] Teresita Garcia LPN Unavailable Unavailabl e Slade Lennon Unavailable Teresita Garcia LPN Unavailable Unavailabl e Encounter Details Date Type Department Care Team (Late st Contact Info) Description 02/05/2025 Orders Only External Location [address] [place] [address] Provider, External Social History Tobacco Use Types [...] 06/03/2025 8:30 AM EDT Clinical Support [facility] [address] [place] [address] 06/03/2025 10:00 AM EDT Office Visit [facility] [address] [place] [address] Daniel Marques MD [address] [place] [address] documented as of this encounter Procedures Procedure [...] on filedocumented in this encounter Care Teams Edger Runner Relationship Specialty Start Date End Date López Alicea MD [address] [place] [address] PCP - General 02/24/25 Teresita Garcia LPN [facility] TCM Nurse 03/04/25 04/03/25 Slade Lennon PA [address] [place] [address] Referring Physician Gastroenterology 03/19/25 Teresita Garcia LPN [facility] TCM Nurse 04/28/25 05/28/25 documented as of this encounter
--- OUTSIDE RECORDS SUMMARY | 2025-05-30 12:48 | XMS_ITS | Encounter Summary ---
Author Organization Healthcare Address [address] [place] [address] Care Team Providers Care Business Intelligence Administrator Name Role Phone López Alicea MD Primary Care Provider [phone] Teresita Garcia LPN Unavailable Unavailabl e Slade Lennon Unavailable Teresita Garcia LPN Unavailable Unavailabl e Encounter Details Date Type Department Care Team (Late st Contact Info) Description 11/01/2024 Orders Only External Location [address] [place] [address] Provider, External Social History Tobacco Use Types [...] Description 06/03/2025 8:30 AM EDT Clinical Support [facility] [address] [place] [address] 06/03/2025 10:00 AM EDT Office Visit [facility] [address] [place] [address] Daniel Marques MD [address] [place] [address] documented as of this encounter Procedures Procedure [...] on filedocumented in this encounter Care Teams Business Intelligence Administrator Relationship Specialty Start Date End Date López Alicea MD [address] [place] [address] PCP - General 02/24/25 Teresita Garcia LPN [facility] TCM Nurse 03/04/25 04/03/25 Slade Lennon PA [address] [place] [address] Referring Physician Gastroenterology 03/19/25 Teresita Garcia LPN [facility] TCM Nurse 04/28/25 05/28/25 documented as of this encounter
--- OUTSIDE RECORDS SUMMARY | 2025-05-30 12:48 | XMS_ITS | Encounter Summary ---
Author Organization Healthcare Address [address] [place] [address] Care Team Providers Care Paraoptometric Name Role Phone López Alicea MD Primary Care Provider [phone] Teresita Garcia LPN Unavailable Unavailabl e Slade Lennon Unavailable Teresita Garcia LPN Unavailable Unavailabl e Encounter Details Date Type Department Care Team (Late st Contact Info) Description 11/22/2024 Orders Only External Location [address] [place] [address] Provider, External Social History Tobacco Use Types [...] 06/03/2025 8:30 AM EDT Clinical Support [facility] [address] [place] [address] 06/03/2025 10:00 AM EDT Office Visit [facility] [address] [place] [address] Daniel Marques MD [address] [place] [address] documented as of this encounter Procedures Procedure [...] on filedocumented in this encounter Care Teams Paraoptometric Relationship Specialty Start Date End Date López Alicea MD [address] [place] [address] PCP - General 02/24/25 Teresita Garcia LPN [facility] Nurse 03/04/25 04/03/25 Slade Lennon PA [address] [place] [address] Referring Physician Gastroenterology 03/19/25 Teresita Garcia LPN [facility] Nurse 04/28/25 05/28/25 documented as of this encounter
--- OUTSIDE RECORDS SUMMARY | 2025-05-30 12:48 | XMS_ITS | Encounter Summary ---
Author Organization Healthcare Address [address] [place] [address] Care Team Providers Care Knobber Name Role Phone López Alicea MD Primary Care Provider [phone] Teresita Garcia LPN Unavailable Unavailabl e Slade Lennon Unavailable Teresita Garcia LPN Unavailable Unavailabl e Encounter Details Date Type Department Care Team (Late st Contact Info) Description 10/17/2024 Orders Only External Location [address] [place] [address] Provider, External Social History Tobacco Use Types [...] Description 06/03/2025 8:30 AM EDT Clinical Support [facility] [address] [place] [address] 06/03/2025 10:00 AM EDT Office Visit [facility] [address] [place] [address] Daniel Marques MD [address] [place] [address] documented as of this encounter Procedures Procedure [...] on filedocumented in this encounter Care Teams Knobber Relationship Specialty Start Date End Date López Alicea MD [address] [place] [address] PCP - General 02/24/25 Teresita Garcia LPN [facility] TCM Nurse 03/04/25 04/03/25 Slade Lennon PA [address] [place] [address] Referring Physician Gastroenterology 03/19/25 Teresita Garcia LPN [facility] TCM Nurse 04/28/25 05/28/25 documented as of this encounter
--- OUTSIDE RECORDS SUMMARY | 2025-05-30 12:48 | XMS_ITS | Encounter Summary ---
Author Organization Healthcare Address [address] [place] [address] Care Team Providers Care Family Preservation Worker Name Role Phone López Alicea MD Primary Care Provider [phone] Teresita Garcia LPN Unavailable Unavailabl e Slade Lennon Unavailable Teresita Garcia LPN Unavailable Unavailabl e Encounter Details Date Type Department Care Team (Late st Contact Info) Description 11/22/2024 Orders Only External Location [address] [place] [address] Provider, External Social History Tobacco Use Types [...] 06/03/2025 8:30 AM EDT Clinical Support [facility] [address] [place] [address] 06/03/2025 10:00 AM EDT Office Visit [facility] [address] [place] [address] Daneil Marques MD [address] [place] [address] documented as of this encounter Procedures Procedure [...] on filedocumented in this encounter Care Teams Family Preservation Worker Relationship Specialty Start Date End Date López Alicea MD [address] [place] [address] PCP - General 02/24/25 Teresita Garcia [facility] Nurse 03/04/25 04/03/25 Slade Lennon PA [address] [place] [address] Referring Physician Gastroenterology 03/19/25 Teresita Garcia LPN [facility] Nurse 04/28/25 05/28/25 documented as of this encounter
--- OUTSIDE RECORDS SUMMARY | 2025-05-30 12:48 | XMS_ITS ---
Author Organization [facility] Address [address] [place] [address] Care Team Providers Care Steam Power Plant Operator Name Role Phone López Alicea MD Primary Care Provider [phone] Slade Lennon Unavailable Transitional Care Management Status:Closed (Closed) Start date:03/04/2025 Enrollment date:03/05/2025 Enrollment reason:Identified using hospital discharge data End date:04/03/2025 Close reason:Patient graduated Overview This episode type is for outpatient care managers enrolling patients in the [facility] Transitional Care Management program. Continued Care and Services Coordination
--- OUTSIDE RECORDS SUMMARY | 2025-05-30 12:48 | XMS_ITS | Encounter Summary ---
Author Organization Healthcare Address [address] [place] [address] Care Team Providers Care Asbestos Removal Worker Name Role Phone López Alicea MD Primary Care Provider [phone] Teresita Garcia LPN Unavailable Unavailabl e Slade Lennon Unavailable Teresita Garcia LPN Unavailable Unavailabl e Encounter Details Date Type Department Care Team (Late st Contact Info) Description 06/21/2024 Orders Only External Location [address] [place] [address] Provider, External Social History Tobacco Use Types [...] Description 06/03/2025 8:30 AM EDT Clinical Support [facility] [address] [place] [address] 06/03/2025 10:00 AM EDT Office Visit [facility] [address] [place] [address] Daniel Marques MD [address] [place] [address] documented as of this encounter Procedures Procedure [...] on filedocumented in this encounter Care Teams Asbestos Removal Worker Relationship Specialty Start Date End Date López Alciea MD [address] [place] [address] PCP - General 02/24/25 Teresita Garcia LPN [facility] TCM Nurse 03/04/25 04/03/25 Slade Lennon PA [address] [place] [address] Referring Physician Gastroenterology 03/19/25 Teresita Garcia LPN [facility] TCM Nurse 04/28/25 05/28/25 documented as of this encounter
--- OUTSIDE RECORDS SUMMARY | 2025-05-30 12:48 | XMS_ITS | Encounter Summary ---
Author Organization Healthcare Address [address] [place] [address] Care Team Providers Care Internet Webmaster Name Role Phone López Alicea MD Primary Care Provider [phone] Slade Lennon Unavailable Teresita Garcia LPN Unavailable Unavailabl e Reason for Visit * Reason Comments TCM Call Encounter Details Date Type Department Care Team (Late st Contact Info) Description 04/28/2025 Patient Outreach [facility] [address] [place] [address] Teresita Garcia LPN [facility] TCM Call Social History [...] time in the past [address], were you homeless or living in a [...] Description 06/03/2025 8:30 AM EDT Clinical Support [facility] [place] [address] [place] [address] 06/03/2025 10:00 AM EDT Office Visit [facility] [address] [place] [address] Daniel Marques MD [address] [place] [address] documented as of this encounter Goals Goal [...] documented as of this encounter Care Teams Internet Webmaster Relationship Specialty Start Date End Date López Alicea MD [address] [place] [address] PCP - General 02/24/25 Slade Lennon PA [address] [place] [address] Referring Physician Gastroenterology 03/19/25 Teresita Garcia LPN [facility] TCM Nurse 04/28/25 05/28/25 documented as of this encounter
--- OUTSIDE RECORDS SUMMARY | 2025-05-30 12:48 | XMS_ITS ---
Author Organization [facility] Address [address] [place] [address] Care Team Providers Care Life Skills Specialist Name Role Phone López Alicea MD Primary Care Provider [phone] Slade Lennon Unavailable Transplant Episode Liver Candidate [facility] ([place], [place]) - [place] Referred on 03/19/2025 Marked as Active on 03/19/2025 Liver CoordinatorKaity Braswell RN Fax: N/A Email: N/A Scores Score Value Updated Expires Exceptions/Shamika sons CPRA Not available MELD (Calc) 10 04/27/2025 Care Team Name Role Phone Fax Email Kaity Braswell RN Liver Coordinator [phone] N/A N/A López Alicea MD Primary Care Provider [phone] N/A LUIS ENRIQUE Rodríguez Referring Physician [phone] N/A Zeinab Miner LCSW [employer] [phone] N/A N/A Norman Rodney MD Surgeon [phone] N/A Events Pre-Transplant Referred: 03/19/2025 Committee: 04/28/2025 Appointments (04/29/2025 - 06/30/2025) When With Visit Type Description 06/03/2025 Transplant LAB 06/03/2025 Transplant - Bridger Marques Office [facility] - Transplant
--- OUTSIDE RECORDS SUMMARY | 2025-05-30 12:48 | XMS_ITS | Encounter Summary ---
Author Organization Healthcare Address [address] [place] [address] Care Team Providers Care Dust Sampler Name Role Phone López Alicea MD Primary Care Provider [phone] Teresita Garcia LPN Unavailable Unavailabl e Slade Lennon Unavailable Teresita Garcia LPN Unavailable Unavailabl e Encounter Details Date Type Department Care Team (Late st Contact Info) Description 02/05/2025 Orders Only External Location [address] [place] [address] Provider, External Social History Tobacco Use Types [...] Description 06/03/2025 8:30 AM EDT Clinical Support [facility] [address] [place] [address] 06/03/2025 10:00 AM EDT Office Visit [facility] [address] [place] [address] Daniel Marques MD [address] [place] [address] documented as of this encounter Procedures Procedure [...] on filedocumented in this encounter Care Teams Dust Sampler Relationship Specialty Start Date End Date López Alicea MD [address] [place] [address] PCP - General 02/24/25 Teresita Garcia LPN [facility] TCM Nurse 03/04/25 04/03/25 Slade Lennon PA [address] [place] [address] Referring Physician Gastroenterology 03/19/25 Teresita Garcia LPN [facility] TCM Nurse 04/28/25 05/28/25 documented as of this encounter
--- OUTSIDE RECORDS SUMMARY | 2025-05-30 12:48 | XMS_ITS | Encounter Summary ---
Author Organization Healthcare Address [address] [place] [address] Care Team Providers Care Acid Remover Name Role Phone López Alicea MD Primary Care Provider [phone] Teresita Garcia LPN Unavailable Unavailabl e Slade Lennon Unavailable Teresita Garcia LPN Unavailable Unavailabl e Encounter Details Date Type Department Care Team (Late st Contact Info) Description 10/17/2024 Orders Only External Location [address] [place] [address] Provider, External Social History Tobacco Use Types [...] Description 06/03/2025 8:30 AM EDT Clinical Support [facility] [address] [place] [address] 06/03/2025 10:00 AM EDT Office Visit [facility] [address] [place] [address] Daniel Marques MD [address] [place] [address] documented as of this encounter Procedures Procedure [...] on filedocumented in this encounter Care Teams Acid Remover Relationship Specialty Start Date End Date López Alicea MD [address] [place] [address] PCP - General 02/24/25 Teresita Garcia LPN [facility] TCM Nurse 03/04/25 04/03/25 Slade Lennon PA [address] [place] [address] Referring Physician Gastroenterology 03/19/25 Teresita Garcia LPN [facility] TCM Nurse 04/28/25 05/28/25 documented as of this encounter
--- OUTSIDE RECORDS SUMMARY | 2025-05-30 12:48 | XMS_ITS | Encounter Summary ---
Author Organization Healthcare Address [address] [place] [address] Care Team Providers Care Lathe Sander Name Role Phone López Alicea MD Primary Care Provider [phone] Teresita Garcia LPN Unavailable Unavailabl e Slade Lennon Unavailable Teresita Garcia LPN Unavailable Unavailabl e Encounter Details Date Type Department Care Team (Late st Contact Info) Description 11/22/2024 Orders Only External Location [address] [place] [address] Provider, External Social History Tobacco Use Types [...] Support [facility] [address] [place] [address] 06/03/2025 10:00 AM EDT Office Visit [facility] [address] [place] [address] Daniel Marques MD [address] [place] [address] documented as of this encounter Procedures Procedure [...] on filedocumented in this encounter Care Teams Lathe Sander Relationship Specialty Start Date End Date López Alicea MD [address] [place] [address] PCP - General 02/24/25 Teresita Garcia LPN [facility] Nurse 03/04/25 04/03/25 Slade Lennon PA [address] [place] [address] Referring Physician Gastroenterology 03/19/25 Teresita Garcia LPN [facility] Nurse 04/28/25 05/28/25 documented as of this encounter
--- OUTSIDE RECORDS SUMMARY | 2025-05-30 12:48 | XMS_ITS | Encounter Summary ---
Author Organization Healthcare Address [address] [place] [address] Care Team Providers Care Marketing Support Specialist Name Role Phone López Alicea MD Primary Care Provider [phone] Teresita Garcia LPN Unavailable Unavailabl e Slade Lennon Unavailable Teresita Garcia LPN Unavailable Unavailabl e Encounter Details Date Type Department Care Team (Late st Contact Info) Description 11/22/2024 Orders Only External Location [address] [place] [address] Provider, External Social History Tobacco Use Types [...] [facility] [address] [place] [address] 06/03/2025 10:00 AM EDT Office Visit [facility] [place] [facility] [address] [place] [address] Daniel Marques MD [address] [place] [address] documented as of this encounter Procedures Procedure [...] on filedocumented in this encounter Care Teams Marketing Support Specialist Relationship Specialty Start Date End Date López Alicea MD [address] [place] [address] PCP - General 02/24/25 [facility]resita [facility] Nurse 03/04/25 04/03/25 Slade Lennon PA [address] [place] [address] Referring Physician Gastroenterology 03/19/25 [facility]resita Garcia [facility] Nurse 04/28/25 05/28/25 documented as of this encounter
--- OUTSIDE RECORDS SUMMARY | 2025-05-30 12:48 | XMS_ITS | Encounter Summary ---
Author Organization Healthcare Address [address] [place] [address] Care Team Providers Care Records Management Engineer Name Role Phone López Alicea MD Primary Care Provider [phone] Teresita Garcia LPN Unavailable Unavailabl e Slade Lennon Unavailable Teresita Garcia LPN Unavailable Unavailabl e Encounter Details Date Type Department Care Team (Late st Contact Info) Description 12/06/2024 Orders Only External Location [address] [place] [address] Provider, External Social History Tobacco Use Types [...] 06/03/2025 8:30 AM EDT Clinical Support [facility] [address] [place] [address] 06/03/2025 10:00 AM EDT Office Visit [facility] [address] [place] [address] Daniel Marques MD [address] [place] [address] documented as of this encounter Procedures Procedure [...] on filedocumented in this encounter Care Teams Records Management Engineer Relationship Specialty Start Date End Date López Alicea MD [address] [place] [address] PCP - General 02/24/25 Teresita Garcia LPN [facility] TCM Nurse 03/04/25 04/03/25 Slade Lennon PA [address] [place] [address] Referring Physician Gastroenterology 03/19/25 Teresita Garcia LPN [facility] TCM Nurse 04/28/25 05/28/25 documented as of this encounter
--- OUTSIDE RECORDS SUMMARY | 2025-05-30 12:48 | XMS_ITS | Encounter Summary ---
Author Organization Healthcare Address [address] [place] [address] Care Team Providers Care Reel Tender Name Role Phone López Alicea MD Primary Care Provider [phone] Teresita Garcia LPN Unavailable Unavailabl e Slade Lennon Unavailable Teresita Garcia LPN Unavailable Unavailabl e Encounter Details Date Type Department Care Team (Late st Contact Info) Description 08/26/2024 Orders Only External Location [address] [place] [address] Provider, External Social History Tobacco Use Types [...] [facility] [address] [place] [address] 06/03/2025 10:00 AM EDT Office Visit [facility] [address] [place] [address] Daniel Marques MD [address] [place] [address] documented as of this encounter Procedures Procedure [...] on filedocumented in this encounter Care Teams Reel Tender Relationship Specialty Start Date End Date López Alicea MD [address] [place] [address] PCP - General 02/24/[address] [facility] TCM Nurse 03/04/25 04/03/25 Slade Lennon PA [address] [place] [address] Referring Physician Gastroenterology 03/19/[address] [facility] TCM Nurse 04/28/25 05/28/25 documented as of this encounter
--- OUTSIDE RECORDS SUMMARY | 2025-05-30 12:48 | XMS_ITS | Encounter Summary ---
Author Organization Healthcare Address [address] [place] [address] Care Team Providers Care Professor Of Musicology Name Role Phone López Alicea MD Primary Care Provider [phone] Teresita Garcia LPN Unavailable Unavailabl e Slade Lennon Unavailable Teresita Garcia LPN Unavailable Unavailabl e Encounter Details Date Type Department Care Team (Late st Contact Info) Description 12/20/2024 Orders Only External Location [address] [place] [address] Provider, External Social History Tobacco Use Types [...] Support [facility] [address] [place] [address] 06/03/2025 10:00 AM EDT Office Visit [facility] [address] [place] [address] Daniel Marques MD [address] [place] [address] documented as of this encounter Procedures Procedure [...] on filedocumented in this encounter Care Teams Professor Of Musicology Relationship Specialty Start Date End Date López Alicea MD [address] [place] [address] PCP - General 02/24/25 Teresita Garcia LPN [facility] TCM Nurse 03/04/25 04/03/25 Slade Lennon PA [address] [place] [address] Referring Physician Gastroenterology 03/19/25 Teresita Garcia LPN [facility] TCM Nurse 04/28/25 05/28/25 documented as of this encounter
--- OUTSIDE RECORDS SUMMARY | 2025-05-30 12:48 | XMS_ITS | Encounter Summary ---
Author Organization Healthcare Address [address] [place] [address] Care Team Providers Care Software Systems Analyst Name Role Phone López Alicea MD Primary Care Provider [phone] Teresita Garcia LPN Unavailable Unavailabl e Slade Lennon Unavailable Teresita Garcia LPN Unavailable Unavailabl e Encounter Details Date Type Department Care Team (Late st Contact Info) Description 02/05/2025 Orders Only External Location [address] [place] [address] Provider, External Social History Tobacco Use Types [...] Description 06/03/2025 8:30 AM EDT Clinical Support [facility] [address] [place] [address] 06/03/2025 10:00 AM EDT Office Visit [facility] [address] [place] [address] Daniel Marques MD [address] [place] [address] documented as of this encounter Procedures Procedure [...] on filedocumented in this encounter Care Teams Software Systems Analyst Relationship Specialty Start Date End Date López Alicea MD [address] [place] [address] PCP - General 02/24/25 Teresita Garcia LPN [facility] TCM Nurse 03/04/25 04/03/25 Slade Lennon PA [address] [place] [address] Referring Physician Gastroenterology 03/19/25 Teresita Garcia LPN [facility] TCM Nurse 04/28/25 05/28/25 documented as of this encounter
--- OUTSIDE RECORDS SUMMARY | 2025-05-30 12:48 | XMS_ITS | Encounter Summary ---
Author Organization Healthcare Address [address] [place] [address] Care Team Providers Care Occupational Therapist Home Based Name Role Phone López Alicea MD Primary Care Provider [phone] Teresita Garcia LPN Unavailable Unavailabl e Slade Lennon Unavailable Teresita Garcia LPN Unavailable Unavailabl e Encounter Details Date Type Department Care Team (Late st Contact Info) Description 09/29/2024 Orders Only External Location [address] [place] [address] Provider, External Social History Tobacco Use Types [...] Description 06/03/2025 8:30 AM EDT Clinical Support [facility] [address] [place] [address] 06/03/2025 10:00 AM EDT Office Visit [facility] [address] [place] [address] Daniel Marques MD [address] [place] [address] documented as of this encounter Procedures Procedure [...] on filedocumented in this encounter Care Teams Occupational Therapist Home Based Relationship Specialty Start Date End Date López Alicea MD [address] [place] [address] PCP - General 02/24/25 Teresita Garcia LPN [facility] TCM Nurse 03/04/25 04/03/25 Slade Lennon PA [address] [place] [address] Referring Physician Gastroenterology 03/19/25 Teresita Garcia LPN [facility] TCM Nurse 04/28/25 05/28/25 documented as of this encounter
--- OUTSIDE RECORDS SUMMARY | 2025-05-30 12:48 | XMS_ITS | Encounter Summary ---
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
--- OUTSIDE RECORDS SUMMARY | 2025-05-30 12:48 | XMS_ITS | Encounter Summary ---
Author Organization Healthcare Address [address] [place] [address] Care Team Providers Care Round Boner Name Role Phone López Alicea MD Primary Care Provider [phone] Slade Lennon Unavailable Teresita Garcia LPN Unavailable Unavailabl e Encounter Details Date Type Department Care Team (Late st Contact Info) Description 05/01/2025 Telephone [facility] [address] [place] [address] Sandra Soto, PharmD Social History [...] any time in the past 12 m [facility], were you homeless or living in [...] Description 06/03/2025 8:30 AM EDT Clinical Support [facility] Transplant Center [address] [place] [address] 06/03/2025 10:00 AM EDT Office Visit [facility] [address] [place] [address] Daniel Marques MD [address] [place] [address] documented as of this encounter Goals Goal [...] documented as of this encounter Care Teams Round Boner Relationship Specialty Start Date End Date López Alicea MD [address] [place] [address] PCP - General 02/24/25 Slade Lennon PA [address] [place] [address] Referring Physician Gastroenterology 03/19/25 Teresita Garcia LPN [facility] TCM Nurse 04/28/25 05/28/25 documented as of this encounter
--- OUTSIDE RECORDS SUMMARY | 2025-05-30 12:48 | XMS_ITS | Encounter Summary ---
Author Organization Healthcare Address [address] [place] [address] Care Team Providers Care Direct Support Professional Name Role Phone López Alicea MD Primary Care Provider [phone] Teresita Garcia LPN Unavailable Unavailabl e Slade Lennon Unavailable Teresita Garcia LPN Unavailable Unavailabl e Encounter Details Date Type Department Care Team (Late st Contact Info) Description 11/01/2024 Orders Only External Location [address] [place] [address] Jerel Stephenson PA [address] [place], [place] [id number] Social History Tobacco Use Types Packs/Day Years [...] Description 06/03/2025 8:30 AM EDT Clinical Support [facility] [address] [address] 06/03/2025 10:00 AM EDT Office Visit [facility] [address] [address] Daniel Marques MD [address] [facility] [address] [place] [address] documented as of this encounter Procedures Procedure [...] on filedocumented in this encounter Care Teams Direct Support Professional Relationship Specialty Start Date End Date López Alicea MD [address] [place] [address] [place] [address] PCP - General 02/24/25 Teresita Garcia LPN [facility] TCM Nurse 03/04/25 04/03/25 Slade Lennon PA [address] [place] [address] Referring Physician Gastroenterology 03/19/25 Teresita Garcia LPN [facility] T[facility] Nurse 04/28/25 05/28/25 documented as of this encounter
--- OUTSIDE RECORDS SUMMARY | 2025-05-30 12:48 | XMS_ITS | Clinical Summary ---
Author Organization [facility] Address [address] [place] [address] Care Team Providers Care Jewel Cupping Machine Operator Name Role Phone Unknown, Attending Provider Primary [...] therelease of HIV test results or diagnoses. [id number] Allergies No known active allergies Medications [...] Type Department Care Team Description 03/21/[address] [facility] Liver Transplant at [address] [place] [address] Opal Agrawal MSW 03/05/[address] [facility] Liver Transplant at [address] [place] [address] Opal Agrawal MSW from Last 3 Months Social History Tobacco Use Types Packs/Day Years Used Date Smoking Tobacco: Never Smokeless Tobacco: Never Tobacco Cessation:Counseling Given: Not Answered Utilities Answer Date Recorded In the past 12 months has [employer], [employer], or water [employer] threatened to shut off services in your [...] any time in the past 12 m [facility], were you homeless or living in a nursing home (including now)? No 09/30/2024 Sex and Gender [...] - 16 mmol/L 10/02/2024 5:05 AM EST [facility] BUN 20 7 - 25 mg/dL 10/02/2024 5:[address] [facility] Creatinine 1.13 0.60 - 1.30 mg/dL 10/02/2024 5:[address] [facility] Glucose 79 70 - 100 mg/dL 10/02/2024 5:05 AM EST [facility] Calcium 8.2(L) 8.6 - 10.3 mg/dL 10/02/2024 5:[address] [facility] Phosphorus 3.2 2.1 - 4.7 mg/dL 10/02/2024 5:[address] [facility] Albumin 3.0(L) 3.5 - 5.7 g/dL 10/02/2024 5:[address] [facility] Osmolality, Calculated 292 278 - 305 mOsm/kg 10/02/2024 5:[address] [facility] EGFR 73 10/02/2024 5:[address] [facility] Comment:As of 2021, the estimated [...] MD LAB BLOOD ORDERABLES Final Res ult [facility] [address] [place], [place] [address] * HIV 1+2 Antibody/Antigen with Reflex (09/30/2024 5:37 PM EST) HIV 1+2 AB/AGN Nonreactive Nonreactive 09/30/2024 8:51 PM EST [facility] Serum 09/30/2024 5:37 PM EST 09/30/2024 5:45 PM EST Narrative HEALTH LAB - 09/30/2024 8:51 PM EST HIV-1 p24 Antigen and HIV-1/HIV-2 Antibody not detected. us Cheryle DUDLEY LAB BLOOD ORDERABLES Final Result [facility] [address] [place] [id number], [facility] from Last 3 Months or Most Recently Relevant to Health Maintenance Insurance [address] [place] [id number] [facility] MEDICARE PPO COMP MEDICAID [place] [facility] MEDICARE PPO COMP MEDICAID [place] Advance Directives For more information, please contact: [phone] * DNRCC-A (Latest Code Status on File) Date Activated Date Inactivated Comments 09/30/2024 12:48 AM 10/03/2024 7:08 PM Care Teams Jewel Cupping Machine Operator Relationship Specialty Start Date End Date Unknown, Attending Provider PCP - General 09/29/24
--- OUTSIDE RECORDS SUMMARY | 2025-05-30 12:48 | XMS_ITS | Encounter Summary ---
Author Organization Healthcare Address [address] [place] [address] Care Team Providers Care Film And Video Editor Name Role Phone López Alicea MD Primary Care Provider [phone] Teresita Garcia LPN Unavailable Unavailabl e Slade Lennon Unavailable Teresita Garcia LPN Unavailable Unavailabl e Encounter Details Date Type Department Care Team (Late st Contact Info) Description 01/09/2025 Orders Only External Location [address] [place] [address] Provider, External Social History Tobacco Use Types [facility] [address] [place] [address] 06/03/2025 10:00 AM EDT Office Visit [facility] Center [address] [place] [address] Daniel Marques MD [address] [place] [address] documented as of this encounter Procedures Procedure [...] on filedocumented in this encounter Care Teams Film And Video Editor Relationship Specialty Start Date End Date López Alicea MD [address] [place] [address] PCP - General 02/24/25 Teresita Garcia LPN [facility] TCM Nurse 03/04/25 04/03/25 Slade Lennon PA [address] [place] [address] Referring Physician Gastroenterology 03/19/25 Teresita Garcia LPN [facility] TCM Nurse 04/28/25 05/28/25 documented as of this encounter
--- OUTSIDE RECORDS SUMMARY | 2025-05-30 12:48 | XMS_ITS | Encounter Summary ---
Author Organization Healthcare Address [address] [place] [address] Care Team Providers Care Network Systems Consultant Name Role Phone López Alicea MD Primary Care Provider [phone] Teresita Garcia LPN Unavailable Unavailabl e Slade Lennon Unavailable Teresita Garcia LPN Unavailable Unavailabl e Encounter Details Date Type Department Care Team (Late st Contact Info) Description 11/22/2024 Orders Only External Location [address] [place] [address] Provider, External Social History Tobacco Use Types [...] Description 06/03/2025 8:30 AM EDT Clinical Support [facility] Transplant Center [address] [place] [address] 06/03/2025 10:00 AM EDT Office Visit [facility]plant Center [address] [place] [address] Daniel Marques MD [address] [place] [address] documented as of this encounter Procedures Procedure [...] on filedocumented in this encounter Care Teams Network Systems Consultant Relationship Specialty Start Date End Date López Alicea MD [address] [place] [address] PCP - General 02/24/25 Teresita Garcia LPN [facility] TCM Nurse 03/04/25 04/03/25 Slade Lennon PA [address] [place] [address] Referring Physician Gastroenterology 03/19/25 Teresita Garcia LPN [facility] TCM Nurse 04/28/25 05/28/25 documented as of this encounter
--- OUTSIDE RECORDS SUMMARY | 2025-05-30 12:48 | XMS_ITS | Encounter Summary ---
Author Organization Healthcare Address [address] [place] [address] Care Team Providers Care De Alcoholizer Name Role Phone López Alicea MD Primary Care Provider [phone] Teresita Garcia LPN Unavailable Unavailabl e Slade Lennon Unavailable Teresita Garcia LPN Unavailable Unavailabl e Encounter Details Date Type Department Care Team (Late st Contact Info) Description 10/17/2024 Orders Only External Location [address] [place] [address] Provider, External Social History Tobacco Use Types [...] Description 06/03/2025 8:30 AM EDT Clinical Support [facility] Transplant Center [address] [place] [address] 06/03/2025 10:00 AM EDT Office Visit [facility] Transplant Center [address] [place] [address] Daniel Marques MD [address] [place] [address] documented as of this encounter Procedures Procedure [...] on filedocumented in this encounter Care Teams De Alcoholizer Relationship Specialty Start Date End Date López Alicea MD [address] [place] [address] PCP - General 02/24/25 Teresita Garcia LPN [facility] TCM Nurse 03/04/25 04/03/25 Slade Lennon PA [address] [place] [address] Referring Physician Gastroenterology 03/19/25 Teresita Garcia LPN [facility] TCM Nurse 04/28/25 05/28/25 documented as of this encounter
--- OUTSIDE RECORDS SUMMARY | 2025-05-30 12:48 | XMS_ITS | Encounter Summary ---
Author Organization Healthcare Address [address] [place] [address] Care Team Providers Care Stereoplotter Operator Name Role Phone López Alicea MD Primary Care Provider [phone] Teresita Garcia LPN Unavailable Unavailabl e Slade Lennon Unavailable Teresita Garcia LPN Unavailable Unavailabl e Encounter Details Date Type Department Care Team (Late st Contact Info) Description 11/01/2024 Orders Only External Location [address] [place] [address] Provider, External Social History Tobacco Use Types [...] EDT Clinical Support [facility] Transplant Center [address] [place] [address] 06/03/2025 10:00 AM EDT Office Visit [facility] Transplant Center [address] [place] [address] Daniel Marques MD [address] [place] [address] documented as of this encounter Procedures Procedure [...] on filedocumented in this encounter Care Teams Stereoplotter Operator Relationship Specialty Start Date End Date López Alicea MD [address] [place] [address] PCP - General 02/24/25 Teresita Garcia LPN [facility] TCM Nurse 03/04/25 04/03/25 Slade Lennon PA [address] [place] [address] Referring Physician Gastroenterology 03/19/25 Teresita Garcia LPN [facility] TCM Nurse 04/28/25 05/28/25 documented as of this encounter
--- OUTSIDE RECORDS SUMMARY | 2025-05-30 12:48 | XMS_ITS | Encounter Summary ---
Author Organization Healthcare Address [address] [place] [address] Care Team Providers Care Curtain Stretcher Assembler Name Role Phone López Alicea MD Primary Care Provider [phone] Teresita Garcia LPN Unavailable Unavailabl e Slade Lennon Unavailable Teresita Garcia LPN Unavailable Unavailabl e Encounter Details Date Type Department Care Team (Late st Contact Info) Description 11/22/2024 Orders Only External Location [address] [place] [address] Provider, External Social History Tobacco Use Types [...] Description 06/03/2025 8:30 AM EDT Clinical Support [facility] Transplant Center [address] [place] [address] 06/03/2025 10:00 AM EDT Office Visit [facility]plant Center [address] [place] [address] Daniel Marques MD [address] [place] [address] documented as of this encounter Procedures Procedure [...] on filedocumented in this encounter Care Teams Curtain Stretcher Assembler Relationship Specialty Start Date End Date López Alicea MD [address] [place] [address] PCP - General 02/24/25 Teresita Garcia LPN [facility] Nurse 03/04/25 04/03/25 Slade Lennon PA [address] [place] [address] Referring Physician Gastroenterology 03/19/25 Teresita Garcia LPN [facility] Nurse 04/28/25 05/28/25 documented as of this encounter
--- OUTSIDE RECORDS SUMMARY | 2025-05-30 12:48 | XMS_ITS | Encounter Summary ---
Author Organization [facility] Address [address] [place] [address] Care Team Providers Care Transcribing Machine Mechanic Name Role Phone López Alicea MD Primary Care Provider Encounter Details Date Type Department Care Team (Late st Contact Info) Description 04/28/2025 Readmission Management [facility] [address] [place] [address] Zenobia Steen, RN Social History Tobacco [...] AM EDT Prep Survey Flowsheet Row Responses [facility] patient discharged from? Non-BH Is LACE score < 7 ? Non-BH Discharge Eligibility [facility] Date of Admission 04/25/25 Date of [...] 2:30 PM EDT Office Visit [facility] [address] [place] [address] López Alicea MD [address] [place] [address] documented as of this encounter Visit Diagnoses Not on filedocumented in this encounter Additional Health Concerns Assessment Noted Time PHQ-2 Depression Total Score: 1 11/09/19 24 11:34 AM EST documented as of this encounter Care Teams Transcribing Machine Mechanic Relationship Specialty Start Date End Date López Alicea MD [address] [place] [address] PCP - General 07/16/15 documented as of this encounter
--- OUTSIDE RECORDS SUMMARY | 2025-05-30 12:48 | XMS_ITS | Encounter Summary ---
Author Organization Healthcare Address [address] [place] [address] Care Team Providers Care Primary Care Md Name Role Phone López Alicea MD Primary Care Provider [phone] Teresita Garcia LPN Unavailable Unavailabl e Slade Lennon Unavailable Teresita Garcia LPN Unavailable Unavailabl e Encounter Details Date Type Department Care Team (Late st Contact Info) Description 11/01/2024 Orders Only External Location [address] [place] [address] Provider, External Social History Tobacco Use Types [...] [facility] Transplant Center [address] [place] [address] 06/03/2025 10:00 AM EDT Office Visit [facility] Transplant Center [address] [place] [address] Daniel Marques MD [address] [place] [address] documented as of this encounter Procedures Procedure [...] on filedocumented in this encounter Care Teams Primary Care Md Relationship Specialty Start Date End Date López Alicea MD [address] [place] [address] PCP - General 02/24/25 Teresita Garcia LPN [facility] TCM Nurse 03/04/25 04/03/25 Slade Lennon PA [address] [place] [address] Referring Physician Gastroenterology 03/19/25 Teresita Garcia [facility]PN [facility] Nurse 04/28/25 05/28/25 documented as of this encounter
--- OUTSIDE RECORDS SUMMARY | 2025-05-30 12:48 | XMS_ITS ---
Author Organization [facility] Address [address] [place] [address] Care Team Providers Care Can Carrier Name Role Phone López Alicea MD Primary Care Provider [phone] Slade Lennon Unavailable Transitional Care Management Status:Closed (Closed) Start date:04/28/2025 Enrollment date:04/28/2025 Enrollment reason:Identified using hospital discharge data End date:05/28/2025 Close reason:Patient graduated Overview This episode type is for outpatient care managers enrolling patients in the [facility] Transitional Care Management program. Continued Care and Services Coordination
--- OUTSIDE RECORDS SUMMARY | 2025-05-30 12:48 | XMS_ITS | Encounter Summary ---
Author Organization Healthcare Address [address] [place] [address] Care Team Providers Care Political Analyst Name Role Phone López Alicea MD Primary Care Provider [phone] Teresita Garcia LPN Unavailable Unavailabl e Slade Lennon Unavailable Teresita Garcia LPN Unavailable Unavailabl e Encounter Details Date Type Department Care Team (Late st Contact Info) Description 11/22/2024 Orders Only External Location [address] [place] [address] Provider, External Social History Tobacco Use Types [...] 06/03/2025 8:30 AM EDT Clinical Support [facility] Transplant Center [address] [place] [address] 06/03/2025 10:00 AM EDT Office Visit [facility] Transplant Center [address] [place] [address] Daniel Marques MD [address] [place] [address] documented as of this encounter Procedures Procedure [...] on filedocumented in this encounter Care Teams Political Analyst Relationship Specialty Start Date End Date López Alicea MD [address] [place] [address] PCP - General 02/24/25 Teresita Garcia LPN [facility] TCM Nurse 03/04/25 04/03/25 Slade Lennon PA [address] [place] [address] Referring Physician Gastroenterology 03/19/25 Teresita Garcia [facility] 04/28/25 05/28/25 documented as of this encounter
--- OUTSIDE RECORDS SUMMARY | 2025-05-30 12:48 | XMS_ITS | Encounter Summary ---
Author Organization Healthcare Address [address] [place] [address] Care Team Providers Care Electrician Elevator Maintenance Name Role Phone López Alicea MD Primary Care Provider [phone] Teresita Garcia LPN Unavailable Unavailabl e Slade Lennon Unavailable Teresita Garcia LPN Unavailable Unavailabl e Encounter Details Date Type Department Care Team (Late st Contact Info) Description 10/17/2024 Orders Only External Location [address] [place] [address] Provider, External Social History Tobacco Use Types [...] [facility] [address] [place] [address] 06/03/2025 10:00 AM EDT Office Visit [facility] Transplant Center [address] [place] [address] Daniel Marques MD [address] [place] [address] documented as of this encounter Procedures Procedure [...] on filedocumented in this encounter Care Teams Electrician Elevator Maintenance Relationship Specialty Start Date End Date López Alicea MD [address] [place] [address] PCP - General 02/24/25 Teresita Garcia LPN [facility] TCM Nurse 03/04/25 04/03/25 Slade Lennon PA [address] [place] [address] Referring Physician Gastroenterology 03/19/25 Teresita Garcia LPN [facility] TCM Nurse 04/28/25 05/28/25 documented as of this encounter
--- OUTSIDE RECORDS SUMMARY | 2025-05-30 12:49 | XMS_ITS | Encounter Summary ---
Author Organization [facility] Address [address] [place] [id number] Care Team Providers Care Die Sinker Name Role Phone López Alicea MD Primary Care Provider Encounter Details Date Type Department Care Team (Late st Contact Info) Description 01/25/2025 Results Follow-Up [facility] MEDICINE [address] [place] [address] López Alicea MD [address] [place] [address] Social History Tobacco Use Types [...] EDT Office Visit [facility] MEDICINE [address] [place] [address] López Alicea MD [address] [place] [address] documented as of this encounter Visit Diagnoses Not on filedocumented in this encounter Additional Health Concerns Assessment Noted Time PHQ-2 Depression Total Score: 1 11/09/19 24 11:34 AM EST documented as of this encounter Care Teams Die Sinker Relationship Specialty Start Date End Date López Alicea MD [address] [place] [address] PCP - General 07/16/15 documented as of this encounter
--- OUTSIDE RECORDS SUMMARY | 2025-05-30 12:49 | XMS_ITS | Encounter Summary ---
Author Organization Healthcare Address [address] [place] [address] Care Team Providers Care Stockkeeper Name Role Phone López Alicea MD Primary Care Provider [phone] Teresita Garcia LPN Unavailable Unavailabl e Slade Lennon Unavailable Teresita Garcia LPN Unavailable Unavailabl e Encounter Details Date Type Department Care Team (Late st Contact Info) Description 01/17/2024 Orders Only External Location [address] [place] [address] Provider, External Social History Tobacco Use Types [...] Description 06/03/2025 8:30 AM EDT Clinical Support [facility] Transplant Center [address] [place] [address] 06/03/2025 10:00 AM EDT Office Visit [facility] Transplant Center [address] [place] [address] Daniel Marques MD [address] [place] [address] documented as of this encounter Procedures Procedure [...] on filedocumented in this encounter Care Teams Stockkeeper Relationship Specialty Start Date End Date López Alicea MD [address] [place] [address] PCP - General 02/24/25 Teresita Garcia LPN [facility] TCM Nurse 03/04/25 04/03/25 Slade Lennon PA [address] [place] [address] Referring Physician Gastroenterology 03/19/25 Teresita Garcia LPN [facility] TCM Nurse 04/28/25 05/28/25 documented as of this encounter
--- OUTSIDE RECORDS SUMMARY | 2025-05-30 12:49 | XMS_ITS | Encounter Summary ---
Author Organization [facility] Address [address] [place] [id number] Care Team Providers Care Drive In Waiter/Waitress Name Role Phone López Alicea MD Primary Care Provider [phone] Reason for Visit * Reason Comments Med Refill Encounter Details Date Type Department Care Team (Late Contact Info) Description 05/04/2025 Refill [facility] MEDICINE [address] [place] [address] López Alicea MD [address] [place] [address] Social History Tobacco Use Types [...] Description 08/01/2025 2:30 PM EDT Office Visit [facility] MEDICINE [address] [place] [address] López Alicea MD [address] [place] [address] documented as of this encounter Visit Diagnoses Not on filedocumented in this encounter Additional Health Concerns Assessment Noted Time PHQ-2 Depression Total Score: 1 11/09/19 24 11:34 AM EST documented as of this encounter Care Teams Drive In Waiter/Waitress Relationship Specialty Start Date End Date López Alicea MD [address] [facility] [address] PCP - General 07/16/15 documented as of this encounter
--- OUTSIDE RECORDS SUMMARY | 2025-05-30 12:49 | XMS_ITS | Encounter Summary ---
Author Organization [facility] Address [address] [place] [address] Care Team Providers Care Farmer Cash Grain Name Role Phone López Alicea MD Primary Care Provider [phone] Reason for Visit * Reason Onset Date Comments Med Refill 05/13/2025 Encounter Details Date Type Department Care Team (Late st Contact Info) Description 05/13/2025 Telephone [facility]INE [address] [place] [address] López Alicea MD [address] [place] [address] Med Refill Social History Tobacco [...] Hendrickson Relationship: Self Best call back number: [phone] Requested Prescriptions: Requested Prescriptions Pending Prescriptions Disp Refills oxyCODONE ER (OxyCONTIN) 40 MG 12 hr tablet 60 tablet 0 Sig: Take 1 tablet by mouth Every 12 (Twelve) Hours. oxyCODONE-acetaminophen (PERCOCET) 10-325 MG per tablet 90 tablet 0 Sig: Take 1 tablet by mouth Every 8 (Eight) Hours As Needed for Moderate Pain. Pharmacy where request should be sent: [facility] - [address] [phone] [facility] [phone] FX Last office visit with prescribing clinician: [...] Description 08/01/2025 2:30 PM EDT Office Visit [facility] [address] [place] [phone] López Alicea MD [address] [place] [address] documented as of this encounter Visit Diagnoses Diagnosis Chronic pain syndrome Degeneration of intervertebral disc of lumbar region documented in this encounter Additional Health Concerns Assessment Noted Time PHQ-2 Depression Total Score: 1 11/09/19 24 11:34 AM EST documented as of this encounter Care Teams Farmer Cash Grain Relationship Specialty Start Date End Date López Alicea MD [address] [facility] [place] [address] PCP - General 07/16/15 documented as of this encounter
--- OUTSIDE RECORDS SUMMARY | 2025-05-30 12:49 | XMS_ITS | Encounter Summary ---
Author Organization [facility] Address [address] [place] [id number] Care Team Providers Care Set Key Driver Name Role Phone López Alicea MD Primary Care Provider Reason for Visit * Reason Onset Date Comments Med Refill 04/07/2025 Encounter Details Date Type Department Care Team (Late st Contact Info) Description 04/07/2025 Refill [facility] MEDICINE [address] [place] [address] López Alicea MD 210 [place] [address] Chronic pain syndrome; Degeneration of [...] EDT Office Visit [facility] [address] [place] [address] López Alicea MD [address] [place] [address] documented as of this encounter Visit Diagnoses Diagnosis Chronic pain syndrome Degeneration of intervertebral disc of lumbar region documented in this encounter Additional Health Concerns Assessment Noted Time PHQ-2 Depression Total Score: 1 11/09/19 24 11:34 AM EST documented as of this encounter Care Teams Set Key Driver Relationship Specialty Start Date End Date López Alicea MD [address] [place] [address] PCP - General 07/16/15 documented as of this encounter
--- OUTSIDE RECORDS SUMMARY | 2025-05-30 12:49 | XMS_ITS | Encounter Summary ---
Author Organization [facility] Address [address] [place] [id number] Care Team Providers Care Private Mortgage Banker Safe Name Role Phone López Alicea MD Primary Care Provider [phone] Reason for Visit * Reason Comments Med Refill Encounter Details Date Type Department Care Team (Late Contact Info) Description 03/06/2025 Refill [facility] MEDICINE [address] [place] [address] Fito Garay MD [address] [place] [address] Chronic pain syndrome; Degeneration of [...] Description 08/01/2025 2:30 PM EDT Office Visit [facility] MED[facility]INE [address] [place] [address] López Alicea MD [address] [place] [address] documented as of this encounter Visit Diagnoses Diagnosis Chronic pain syndrome Degeneration of intervertebral disc of lumbar region documented in this encounter Additional Health Concerns Assessment Noted Time PHQ-2 Depression Total Score: 1 11/09/19 24 11:34 AM EST documented as of this encounter Care Teams Private Mortgage Banker Safe Relationship Specialty Start Date End Date López Alicea MD [address] [place] [address] PCP - General 07/16/15 documented as of this encounter
--- OUTSIDE RECORDS SUMMARY | 2025-05-30 12:49 | XMS_ITS | Encounter Summary ---
Author Organization [facility] Address [address] [place] [address] Care Team Providers Care Proof Carrier Name Role Phone López Alicea MD Primary Care Provider [phone] Reason for Visit * Reason Onset Date Comments Call from [facility] 05/09/2025 Encounter Details Date Type Department Care Team (Late st Contact Info) Description 05/09/2025 Telephone [facility] MEDICINE [address] [place] [address] López Alicea MD [address] [place] [address] Call from [facility] Social History Tobacco Use Types Packs/Day Years [...] call patient. We received a call from [facility] lab where he had had 2 units [...] 2 negative hepatitis test. Call was from [facility]. Discussed with laborer chicken farm,Jeannette Moss, at 2:45 PM on May 09, 2025. documented in this encounter Plan of Treatment Upcoming Encounters Date Type Department Care Team (Late st Contact Info) Description 08/01/2025 2:30 PM EDT Office Visit [facility] MED[facility] [address] [place] [address] López Alicea MD [address] [place] [address] documented as of this encounter Visit Diagnoses Not on filedocumented in this encounter Additional Health Concerns Assessment Noted Time PHQ-2 Depression Total Score: 1 11/09/19 24 11:34 AM EST documented as of this encounter Care Teams Proof Carrier Relationship Specialty Start Date End Date López Alicea MD [address] [place] [address] PCP - General 07/16/15 documented as of this encounter
--- OUTSIDE RECORDS SUMMARY | 2025-05-30 12:49 | XMS_ITS | Encounter Summary ---
Author Organization [facility] Address [address] [place] [address] Care Team Providers Care Hand Candy Molder Name Role Phone López Alicea MD Primary Care Provider [phone] Teresita Garcia LPN Unavailable Unavailabl e Slade Lennon Unavailable Teresita Garcia LPN Unavailable Unavailabl e Encounter Details Date Type Department Care Team (Late st Contact Info) Description 01/16/2024 Orders Only External Location [address] [place] [address] Provider, External Social History Tobacco Use Types [...] [facility] [address] [place] [address] 06/03/2025 10:00 AM EDT Office Visit [facility] [address] [place] [address] Daniel Marques MD [address] [place] [address] documented as of this encounter Procedures Procedure [...] on filedocumented in this encounter Care Teams Hand Candy Molder Relationship Specialty Start Date End Date López Alicea MD [address] [place] [address] PCP - General 02/24/25 Teresita Garcia LPN [facility] TCM Nurse 03/04/25 04/03/25 Slade Lennon PA [facility] [place] [address] Referring Physician Gastroenterology 03/19/25 Teresita Garcia LPN [facility] TCM Nurse 04/28/25 05/28/25 documented as of this encounter
--- OUTSIDE RECORDS SUMMARY | 2025-05-30 12:49 | XMS_ITS | Encounter Summary ---
Author Organization [facility] Address [address] [place] [address] Care Team Providers Care Hotel Baggage Handler Name Role Phone López Alicea MD Primary Care Provider Encounter Details Date Type Department Care Team (Late Contact Info) Description 04/29/2025 Transitional Care Management Telephone Encounter [facility] [address] [place] [address] Jane Mckinnon, RN Social History Tobacco [...] Call Center TCM Note Flowsheet Row Responses [facility] patient discharged from? Non-BH Does the patient [...] PM EDT Office Visit [facility] MEDICINE [address] [place] [phone] López Alicea MD [address] [place] [address] documented as of this encounter Visit Diagnoses Not on filedocumented in this encounter Additional Health Concerns Assessment Noted Time PHQ-2 Depression Total Score: 1 11/09/19 24 11:34 AM EST documented as of this encounter Care Teams Hotel Baggage Handler Relationship Specialty Start Date End Date López Alicea MD [address] [place] [address] PCP - General 07/16/15 documented as of this encounter
--- OUTSIDE RECORDS SUMMARY | 2025-05-30 12:49 | XMS_ITS | Encounter Summary ---
Author Organization [facility] Address [address] [place] [id number] Care Team Providers Care Regulatory Affairs Intern Name Role Phone López Alicea MD Primary Care Provider Encounter Details Date Type Department Care Team (Late st Contact Info) Description 12/23/2024 Results Follow-Up [facility] MEDICINE [address] [place] [address] López Alicea MD [address] [place] [address] Social History Tobacco Use Types [...] Description 08/01/2025 2:30 PM EDT Office Visit [facility] MEDICINE [address] [place] [address] López Alicea MD [address] [place] [address] documented as of this encounter Visit Diagnoses Not on filedocumented in this encounter Additional Health Concerns Assessment Noted Time PHQ-2 Depression Total Score: 1 11/09/19 24 11:34 AM EST documented as of this encounter Care Teams Regulatory Affairs Intern Relationship Specialty Start Date End Date López Alicea MD [address] [place] [address] PCP - General 07/16/15 documented as of this encounter
--- OUTSIDE RECORDS SUMMARY | 2025-05-30 12:49 | XMS_ITS | Encounter Summary ---
Author Organization [facility] Address [address] [place] [id number] Care Team Providers Care Director Of Solutions Architecture Name Role Phone López Alicea MD Primary Care Provider [phone] Encounter Details Date Type Department Care Team (Late st Contact Info) Description 02/12/2025 Results Follow-Up [facility] MEDICINE [address] [place] [address] Yumiko Lynch, PAStaceyC [address] [place] [address] Social History Tobacco Use Types [...] Description 08/01/2025 2:30 PM EDT Office Visit [facility] MEDICINE [address] [place] [address] López Alicea MD [address] [place] [address] documented as of this encounter Visit Diagnoses Diagnosis Potassium deficiency- Primary Hypopotassemia documented in this encounter Additional Health Concerns Assessment Noted Time PHQ-2 Depression Total Score: 1 11/09/19 24 11:34 AM EST documented as of this encounter Care Teams Director Of Solutions Architecture Relationship Specialty Start Date End Date López Alicea MD [address] [facility] [place] [address] PCP - General 07/16/15 documented as of this encounter
--- OUTSIDE RECORDS SUMMARY | 2025-05-30 12:49 | XMS_ITS | Encounter Summary ---
Author Organization [facility] Address [address] [place] [id number] Care Team Providers Care Nutrient Management Specialist Name Role Phone López Alicea MD Primary Care Provider [phone] Reason for Visit * Reason Comments Med Refill Encounter Details Date Type Department Care Team (Late Contact Info) Description 05/07/2025 Refill [facility] MEDICINE [address] [place] [address] López Alicea MD [address] [place] [address] Nausea Social History Tobacco Use [...] Description 08/01/2025 2:30 PM EDT Office Visit [facility] MED[facility]INE [address] [place] [address] López Alicea MD [address] [place] [address] documented as of this encounter Visit Diagnoses Diagnosis Nausea Nausea alone documented in this encounter Additional Health Concerns Assessment Noted Time PHQ-2 Depression Total Score: 1 11/09/19 24 11:34 AM EST documented as of this encounter Care Teams Nutrient Management Specialist Relationship Specialty Start Date End Date López Alicea MD [address] [facility] [address] PCP - General 07/16/15 documented as of this encounter
--- OUTSIDE RECORDS SUMMARY | 2025-05-30 12:49 | XMS_ITS | Encounter Summary ---
Author Organization [facility] Address [address] [place] [phone] Care Team Providers Care Engineering Inspection Assistant Name Role Phone López Alicea MD Primary Care Provider Encounter Details Date Type Department Care Team (Late st Contact Info) Description 03/09/2015 External CPT II [facility] Social History Tobacco Use [...] Visit [facility] [address] [facility] [place] [address] López Alicea MD [address] [place], [place] [id number] documented as of this encounter Visit Diagnoses Not on filedocumented in this encounter Care Teams Engineering Inspection Assistant Relationship Specialty Start Date End Date López Alicea MD [address] [place], [place] [address] PCP - General 07/16/15 documented as of this encounter
--- OUTSIDE RECORDS SUMMARY | 2025-05-30 12:49 | XMS_ITS | Encounter Summary ---
Author Organization [facility] Address [address] [place] [phone] Care Team Providers Care Watch Supervisor Name Role Phone López Alicea MD Primary Care Provider Encounter Details Date Type Department Care Team (Late st Contact Info) Description 03/11/2025 Results Follow-Up [facility] MEDICINE [address] [place] [address] López Alicea MD [address] [place] [address] Social History Tobacco Use Types [...] Description 08/01/2025 2:30 PM EDT Office Visit [facility] MED[facility]INE [address] [place] [address] López Alicea MD [address] [place] [address] documented as of this encounter Visit Diagnoses Diagnosis Potassium deficiency Hypopotassemia documented in this encounter Additional Health Concerns Assessment Noted Time PHQ-2 Depression Total Score: 1 11/09/19 24 11:34 AM EST documented as of this encounter Care Teams Watch Supervisor Relationship Specialty Start Date End Date López Alicea MD [address] [place] [address] PCP - General 07/16/15 documented as of this encounter
--- OUTSIDE RECORDS SUMMARY | 2025-05-30 12:49 | XMS_ITS | Encounter Summary ---
Author Organization [facility] Address [address] [place] [address] Care Team Providers Care Archery Instructor Name Role Phone López Alicea MD Primary Care Provider Encounter Details Date Type Department Care Team (Late st Contact Info) Description 04/29/2025 Transitional Care Management Telephone Encounter [facility] CALL [facility] [address] [place] [address] Jane Mckinnon, RN Social History Tobacco [...] Call Center TCM Note Flowsheet Row Responses [facility] patient discharged from? Non-BH Does the patient have one of the following disease processes/diagnoses(primary or secondary)? Other TCM attempt successful? No [VR blank] Unsuccessful attempts Attempt 2 Jane Bhatia - Registered Nurse 04/29/2025, 15:17 EDT documented in this encounter Plan of Treatment Upcoming Encounters Date Type Department Care Team (Late st Contact Info) Description 08/01/2025 2:30 PM EDT Office Visit [facility] MEDICINE [address] [place] [address] López Alicea MD [address] [place] [address] documented as of this encounter Visit Diagnoses Not on filedocumented in this encounter Additional Health Concerns Assessment Noted Time PHQ-2 Depression Total Score: 1 11/09/19 24 11:34 AM EST documented as of this encounter Care Teams Archery Instructor Relationship Specialty Start Date End Date López Alicea MD [address] [place] [address] PCP - General 07/16/15 documented as of this encounter
--- OUTSIDE RECORDS SUMMARY | 2025-05-30 12:49 | XMS_ITS | Encounter Summary ---
Author Organization [facility] Address [address] [place] [phone] Care Team Providers Care Segment Assembler Name Role Phone López Alicea MD Primary Care Provider [phone] Reason for Visit * Reason Comments Med Refill Encounter Details Date Type Department Care Team (Late Contact Info) Description 05/22/2025 Refill [facility] MEDICINE [address] [facility] [place] [address] López Alicea MD [address] [facility] [place] [address] Idiopathic gout, unspecified chronicity, unspecified [...] EDT Office Visit [facility] MEDICINE [address] [facility] [place] [address] López Alicea MD [address] [facility] [place] [address] documented as of this encounter Visit [...] documented as of this encounter Care Teams Segment Assembler Relationship Specialty Start Date End Date López Alicea MD [address] [place] [address] PCP - General 07/16/15 documented as of this encounter
--- OUTSIDE RECORDS SUMMARY | 2025-05-30 12:49 | XMS_ITS | Encounter Summary ---
Author Organization [facility] Address [address] [place] [address] Care Team Providers Care Tassel Making Machine Operator Name Role Phone López Alicea MD Primary Care Provider Encounter Details Date Type Department Care Team (Late st Contact Info) Description 04/30/2025 Transitional Care Management Telephone Encounter [facility] [address] [place] [address] Del Grossman, RN Social History Tobacco [...] Call Center TCM Note Flowsheet Row Responses [facility] patient discharged from? Non- [] Does the patient have one of the following disease processes/diagnoses(primary or secondary)? Other TCM attempt successful? No Unsuccessful attempts Attempt 3 Del Rees - Registered Nurse 04/30/2025, 11:50 EDT documented in this encounter Plan of Treatment Upcoming Encounters Date Type Department Care Team (Late st Contact Info) Description 08/01/2025 2:30 PM EDT Office Visit [facility] MEDIC[facility] [address] [place] [address] López Alicea MD [address] [place] [address] documented as of this encounter Visit Diagnoses Not on filedocumented in this encounter Additional Health Concerns Assessment Noted Time PHQ-2 Depression Total Score: 1 11/09/19 24 11:34 AM EST documented as of this encounter Care Teams Tassel Making Machine Operator Relationship Specialty Start Date End Date López Alicea MD [address] [place] [address] PCP - General 07/16/15 documented as of this encounter
--- OUTSIDE RECORDS SUMMARY | 2025-05-30 12:49 | XMS_ITS | Encounter Summary ---
Author Organization [facility] Address [address] [place] [address] Care Team Providers Care Biomedical Service Engineer Name Role Phone López Alicea MD Primary Care Provider [phone] Reason for Visit * Reason Onset Date Comments Medication Problem 04/09/2025 Encounter Details Date Type Department Care Team (Late st Contact Info) Description 04/09/2025 Telephone [facility] MEDICINE [address] [place] [address] López Alicea MD [address] [place] [address] Medication Problem Social History Tobacco [...] - 04/09/2025 8:40 AM EDT Caller: Chema Hendrcikson Relationship: Self Best call back number: [phone] Requested Prescriptions: Requested Prescriptions Pending Prescriptions Disp Refills oxyCODONE ER (OxyCONTIN) 40 MG 12 hr tablet 60 tablet 0 Sig: Take 1 tablet by mouth Every 12 (Twelve) Hours. oxyCODONE-acetaminophen (PERCOCET) 10-325 MG per tablet 90 tablet 0 Sig: Take 1 tablet by mouth Every 8 (Eight) Hours As Needed for Moderate Pain. Pharmacy where request should be sent: [facility] - [place] [address] [address] - [phone] - [phone] FX Last office visit with prescribing clinician: [...] Description 08/01/2025 2:30 PM EDT Office Visit [facility] MEDICINE [address] [place] [address] López Alicea MD [address] [place] [address] documented as of this encounter Visit Diagnoses Diagnosis Chronic pain syndrome Degeneration of intervertebral disc of lumbar region documented in this encounter Additional Health Concerns Assessment Noted Time PHQ-2 Depression Total Score: 1 11/09/19 24 11:34 AM EST documented as of this encounter Care Teams Biomedical Service Engineer Relationship Specialty Start Date End Date López Alicea MD [address] [place] [address] PCP - General 07/16/15 documented as of this encounter
--- OUTSIDE RECORDS SUMMARY | 2025-05-30 12:49 | XMS_ITS | Encounter Summary ---
Author Organization [facility] Address [address] [place] [phone] Care Team Providers Care Lining Machine Operator Name Role Phone López Alicea MD Primary Care Provider Encounter Details Date Type Department Care Team (Late st Contact Info) Description 02/21/2025 Results Follow-Up [facility] MEDICINE [address] [place] [address] López Alicea MD [address] [place] [address] Social History Tobacco Use Types [...] [facility] [address] [place] [address] López Alicea MD [address] [place] [address] documented as of this encounter Visit Diagnoses Not on filedocumented in this encounter Additional Health Concerns Assessment Noted Time PHQ-2 Depression Total Score: 1 11/09/19 24 11:34 AM EST documented as of this encounter Care Teams Lining Machine Operator Relationship Specialty Start Date End Date López Alicea MD [address] [place] [address] PCP - General 07/16/15 documented as of this encounter
--- OUTSIDE RECORDS SUMMARY | 2025-05-30 12:49 | XMS_ITS | Encounter Summary ---
Author Organization [facility] Address [address] [place] [id number] Care Team Providers Care Public Finance Specialist Name Role Phone López Alicea MD Primary Care Provider [phone] Reason for Visit * Reason Comments Med Refill Encounter Details Date Type Department Care Team (Late Contact Info) Description 05/12/2025 Refill [facility] [address] [place] [address] López Alicea MD [address] [facility] [place] [address] Chronic pain syndrome Social History [...] Description 08/01/2025 2:30 PM EDT Office Visit [facility] [address] [place] [address] López Alicea MD [address] [place] [address] documented as of this encounter Visit Diagnoses Diagnosis Chronic pain syndrome documented in this encounter Additional Health Concerns Assessment Noted Time PHQ-2 Depression Total Score: 1 11/09/19 24 11:34 AM EST documented as of this encounter Care Teams Public Finance Specialist Relationship Specialty Start Date End Date López Alicea MD [address] [place] [address] PCP - General 07/16/15 documented as of this encounter
--- OUTSIDE RECORDS SUMMARY | 2025-05-30 12:49 | XMS_ITS | Encounter Summary ---
Author Organization Healthcare Address [address] [place] [address] Care Team Providers Care Cost Analyst Name Role Phone López Alicea MD Primary Care Provider [phone] Teresita Garcia LPN Unavailable Unavailabl e Slade Lennon Unavailable Teresita Garcia LPN Unavailable Unavailabl e Encounter Details Date Type Department Care Team (Late st Contact Info) Description 01/16/2024 Orders Only External Location [address] [place] [address] Provider, External Social History Tobacco Use Types [...] [facility] [address] [place] [address] 06/03/2025 10:00 AM EDT Office Visit [facility] [address] [place] [address] Daniel Marques MD [address] [place] [address] documented as of this encounter Procedures Procedure [...] on filedocumented in this encounter Care Teams Cost Analyst Relationship Specialty Start Date End Date López Alicea MD [address] [place] [address] PCP - General 02/24/25 Teresita Garcia LPN [facility] TCM Nurse 03/04/25 04/03/25 [place] [address] [place] [address] Referring Physician Gastroenterology 03/19/25 Teresita Garcia LPN [facility] TCM Nurse 04/28/25 05/28/25 documented as of this encounter
[2025-06-03 12:01] LABS: Clostridium Difficile A/B, PCR Detected (NotDetected)
== END 2025-05-30 23:59 | disposition home or self-care (01) ==
LOC: LAB 12:43
PROVIDERS: PCP Family Medicine; Visit Provider Physician Assistant
DX: R19.7 Diarrhea, unspecified (principal)
CPT/HCPCS: 87507

== ENCOUNTER 2025-09-11 10:30 | Outpatient (CLI) | payer MEDICARE, MEDICAID, SELFPAY ==
[2025-09-11 10:57] LABS: Hematocrit 29.2 % (42.0-52.0); Hemoglobin 8.4 g/dL (14.1-18.0); Immature Granulocytes % 0 %; Mean Corpuscular HGB Conc 28.8 g/dL (31.8-35.4); Mean Corpuscular Hemoglobin 24.3 pg (27.0-31.2); Mean Corpuscular Volume 84.4 fl (80-94); Nucleated Red Blood Cells % 0 %; Platelet Count 94 K/mm3 (142-424); Red Blood Count 3.46 M/mm3 (4.60-6.20); Red Cell Distribution Width-SD 61.6 fL; White Blood Count 2.5 K/mm3 (4.8-10.8)
[2025-09-11 11:29] LABS: Albumin Level 3.3 g/dl (3.5-5.0); Chloride 102 mmol/L (98-107)
[2025-09-11 11:30] LABS: Potassium 4.0 mmoL/L (3.5-5.1); Sodium 140 mmol/L (136-145)
[2025-09-11 11:32] LABS: Alanine Aminotransferase 22 U/L (12-78); Albumin/Globulin Ratio 0.9 (1.1-1.8); Alkaline Phosphatase 140 U/L (38-126); Anion Gap 16.0 mEq/L (5-15); Aspartate Amino Transferase 40 U/L (17-59); Bilirubin,Total 0.7 mg/dl (0.2-1.3); Blood Urea Nitrogen 17 mg/dl (9-20); Carbon Dioxide 26 mmol/L (22.0-30.0); Creatinine,Serum 1.40 mg/dl (0.66-1.25); Estimated Glomerular Filt Rate 51 ml/min (>60); GFR (African American) 62 ML/MIN (>60); Globulin 3.8 g/dL (1.3-3.2); Total Protein,Serum 7.1 g/dl (6.3-8.2)
[2025-09-11 11:33] LABS: Calcium 8.4 mg/dl (8.4-10.2); Glucose 142 mg/dl (74-100); Iron 28 ug/dL (49-181)
[2025-09-11 11:40] LABS: Hypochromasia 2+; Total Cells Counted 50
[2025-09-11 11:43] LABS: Total Iron Binding Capacity 437 ug/dL (261-462)
[2025-09-11 12:08] LABS: Ferritin 23.5 ng/ml (17.9-464)
== END 2025-09-11 23:59 | disposition home or self-care (01) ==
LOC: LAB 10:31
PROVIDERS: PCP Family Medicine; Visit Provider Internal Medicine Medical Oncology
DX: D64.9 Anemia, unspecified (principal)
CPT/HCPCS: 36415; 80053; 82728; 83540; 83550; 85007; 85025; 86850

== ENCOUNTER 2025-09-16 02:39 | Emergency (ER) | payer MEDICARE, MEDICAID, SELFPAY ==
--- OUTSIDE RECORDS SUMMARY | 2025-08-01 09:00 | XMS_ITS | Continuity of Care Document ---
Author Organization [facility] Phone Care Team Providers Care Director Workforce Management Name Role Phone AGUSTIN WARD Primary Care LUIS CARMEN Admitting LUIS CARMEN Primary Attending ALLERGIES AND ADVERSE REACTIONS ALLERGIES AND ADVERSE REACTIONS Code System Allergy Substance Adverse Reaction Date Reaction (Severity) Comment Status Reported By Updated By No Known Allergies [id number] on July 15, 2025 4:08:25 PM [facility] FAMILY HISTORY RELATION: Father Status: Cause of : Malignant tumor of stomach Age at : 60 SNOMED-CT Diagnosis Age At Onset [id number] Hypertensive disorder [id number] Smoker [id number] Alcoholism RELATION: Mother Status: Cause of : Unknown Age at : 74 SNOMED-CT Diagnosis Age At Onset [id number] Chronic obstructive lung disease RESULTS Patient: GREG Rees Date of : [birth year] 1 LABORATORY RESULTS ORDER 100: HGB/HCT POSTTRANS FUSION (LOINC: 81973-8) ORDER DATE: July 31, 2025 6:09:00 PM [place] Specimen Source: EDTA Specimen Type: Blood specime n with EDTA PERFORMING LAB: [address] [id number] Result Comment: Final Result Date: July 31, 2025 6:51:00 PM UT (TECH: ARR) LOINC TEST FLAG RESULT REFERENCE RANGE UPDA KILO BY 718-7 Hemoglobin [Mass/volume] in Blood L 7.4 gm/dl 13.5 gm/dl - 18.0 gm/dl July 31, 2025 6:51:00 PM UT (TECH: ARR) 73377-2 Hematocrit [Volume Fraction] of Blood L 26.2 % 42.0 % - 52.0 % July 31 6:51:00 PM UTC (TECH: ARR) LABORATORY NARRATIVE RESULTS [...] RXNORM NDC Medication Dose Route Frequency Dates Dis pense Data Comments Physician Updated By No Discharge Medication Info rmation Available INPATIENT MEDICATIONS Status RXNORM NDC Medication Dose Route Frequency Rat e Quantity Dates Indication Dispense Data Comments Physician Updated By Discont inued [id number] 0618 8077 501 ferumoxytol (FERAHEME) 510 MG/17 ML SOLN 510.0 MG INTRAV ENOUS ONE TIME ONLY (SCHEDULED DOSE) Start: 2024 2:51:0 0 PM UTC End: 2024 2:51:0 0 PM UTC [facility] ED on July 31, 2025 2:50:00 PM UTC Discont inued [id number] 0164 4677 361 acetaminoph en (TYLENOL) 325 MG TABS 325.0 MG ORAL ONE TIME ONLY (SCHEDULED DOSE) Start: 2024 3:01:0 0 PM UTC End: 2024 3:01:0 0 PM UTC [facility] on July 31, 2025 3:00:00 PM UTC Discont inued [id number] 1093 4677 361 acetaminoph en (TYLENOL) 325 MG TABS 650.0 MG ORAL ONE TIME ADMINISTRA TION (UNSCHEDUL ED) Start: 2024 3:01:0 0 PM UTC End: 2024 3:03:4 5 PM UTC [facility] [id number] on July 31, 2025 3:03:00 PM UTC Discont inued [id number] 2545 8363 701 cetirizine (ZyrTEC) 10 MG TABS 10.0 MG ORAL ONE TIME ADMINISTRA TION (UNSCHEDUL ED) Start: 2024 3:02:0 0 PM UTC End: 2024 3:03:5 9 PM UTC NELLA Briggs [id number] on July 31, 2025 3:03:00 PM UTC Discont inued [id number] 1940 8077 501 ferumoxytol (FERAHEME) 510 MG/17 ML SOLN 510.0 MG INTRAV ENOUS ONE TIME ADMINISTRA TION (UNSCHEDUL ED) 508.0 ML/HR Start: Octobe r 2024 3:04:0 0 PM UTC End: Octobe r 2024 3:05:0 8 PM UTC NELLA Briggs [id number] on July 31, 2025 3:05:00 PM UTC Discont inued [id number] 0040 9710 167 sodium chloride 0.9% SOLN 100.0 ML INTRAV ENOUS ONE TIME ADMINISTRA TION (UNSCHEDUL ED) 508.0 ML/HR Start: Octobe r 2024 3:04:0 0 PM UTC End: Octobe r 2024 3:05:0 8 PM UTC NELLA Briggs [id number] on July 31, 2025 3:05:00 PM UT SOCIAL HISTORY SOCIAL HISTORY - Smoking Status SNOMED-CT Social History Element Description Effective Dates Offered Cessation Comment Updated By [id number] Historical Tobacco smoking status Never Smoked [id number] on July 15, 2025 4:38:46 PM [place] [id number] Historical Tobacco smoking status Unknown If Ever Smoked [email or web address] on February 05, 2025 4:56:06 AM UT SOCIAL HISTORY - Gender Sex: Male SOCIAL HISTORY - Status : status i nformation is not available Intention in Next Year: intention information is not available SOCIAL HISTORY - Assessments Code System Description Status Date Value of Assessment Updated By Comment Assessment Information is no t available SOCIAL HISTORY - [place] Affiliation [place] information is not av ailable SOCIAL HISTORY - Legal Sex Legal Sex information is not available SOCIAL HISTORY - Sexual Behavior Sexual Orientation Gender Identity SNOMED-CT Description SNO MED -CT Description Activity Level No of Partners Partner Type UpdatedBy Information is not available SOCIAL HISTORY - Occupation Occupation information is no t available VITAL SIGNS PATIENT VITAL SIGNS This section displays the mo st recent value for each vital sign as of August 01, 2025 2:00:21 PM [place] Loinc Code Vital Sign Activity Date Result Updated By 8310-5 Body temperature July 31 5:56:00 PM UTC 98.6 [degF] 8462-4 Diastolic blood pressure July 31, 2025 5:56:00 PM UTC 58.0 mm[Hg] 8867-4 Heart rate July 31, 2025 5:56:00 PM UTC 69 /min 67109-6 Oxygen saturation in Arterial blood by Pulse oximetry July 31, 2025 2:50:00 PM UTC 97.0 % 9279-1 Respiratory rate July 31 5:56:00 PM UTC 16 /min 8480-6 Systolic blood pressure July 31, 2025 5:56:00 PM UTC 143.0 mm[Hg] PEDIATRIC GROWTH CHART - VITAL SIGNS This [...] INFORMATION Reason for Visit Not Specified Admission July 31, 2025 2:02:[address] [address] Discharge July 31, 2025 8:17:00 PM [facility] DISCHARGED TO HOME OR SELF CARE ENCOUNTER DIAGNOSES Notes information is not dai ilable. Code System Diagnosis Onset Date Diagnosis information is not available. ABSTRACT DIAGNOSES Code System Diagnosis Updated By Abatement Date D50.9 ICD10 IRON DEFICIENCY ANEMIA, UNSPECIFIED [id number] on August 01, 2025 1:59:53 PM [facility] K90.9 ICD10 INTESTINAL MALAB SORPTION, UNSPECIFIED [id number] on August 01, 2025 1:59:53 PM [facility] R71.0 ICD10 PRECIPITOUS DROP IN HEMATOCR IT [id number] on August 01, 2025 1:59:53 PM [facility] D50.9 ICD10 IRON DEFICIENCY ANEMIA, UNSPECIFIED [id number] on August 01, 2025 1:59:53 PM [facility] K90.9 ICD10 INTESTINAL MALAB SORPTION, UNSPECIFIED [id number] on August 01, 2025 1:59:53 PM [facility] Z88.6 ICD10 ALLERGY STATUS T O ANALGESIC AGENT [id number] on August 01, 2025 1:59:53 PM [facility] CARE TEAM Care Director Workforce Management Role AGUSTIN WARD Primary Care LUIS CARMEN Admitting LUIS CARMEN Primary Attending CARE TEAM CARE physical therapy resident Role on Team Location Telecom Status Start Date End Aaron e Updated By SYLVIA MEDINA PCP normal July 29, 2025 6:45:11 PM [facility] July 31, 2025 8:17:00 PM [facility] [id number] on July 29, 2025 6:45:11 PM [facility] NELLA MEDINA Attending normal July 29, 2025 6:45:11 PM [facility] July 31, 2025 8:17:00 PM [facility] [id number] on July 29, 2025 6:45:11 PM [facility] NELLA MEDINA Admitting normal July 29, 2025 6:45:10 PM [facility] July 31, 2025 8:17:00 PM [facility] [id number] on July 29, 2025 6:45:11 PM [facility]
--- OUTSIDE RECORDS SUMMARY | 2025-08-01 13:30 | XMS_ITS | Encounter Summary ---
Author Organization [facility] Address [address] [place] [address] Care Team Providers Care Strap Stitcher Name Role Phone López Alicea MD Primary Care Provider [phone] Reason for Visit * Reason Comments Primary Care Follow-Up GI Problem Encounter Details Date Type Department Care Team (Latest Contact Info) Description 08/01/2025 2:30 PM EDT Office Visit [facility] [address] [place] [address] López Alicea MD [address] [place] [address] Need for influenza vaccination (Primary Dx); Secondary esophageal varices with bleeding; Iron deficiency anemia due to chronic blood loss; Chronic pain syndrome; Degeneration of intervertebral disc of lumbar region with discogenic back pain and lower extremity pain; Degeneration of intervertebral disc of lumbar region; Chronic liver failure without hepatic coma; Major depressive disorder, recurrent episode, moderate degree Social History Tobacco Use Types Packs/Day Years [...] Sign Reading Time Taken Comments Blood Pressure 140/70 08/01/2025 1:59 PM EDT Pulse 84 08/01/2025 1:59 PM EDT Temperature 36.8 C (98.3 F) 08/01/2025 1:59 PM EDT Respiratory Rate 18 08/01/2025 1:59 PM EDT Oxygen Saturation 96% 08/01/2025 1:59 PM EDT Inhaled Oxygen Concentration - - Weight 107 kg (236 lb) 08/01/2025 1:59 PM EDT Height 177.8 cm (5' 10 ) 08/01/2025 1:59 PM EDT Body Mass Index 33.86 08/01/2025 1:59 PM EDT documented in this encounter Progress Notes * López Alicea MD - 08/01/2025 2:30 PM EDT Chief Complaint Primary Care Follow-Up and GI Problem Subjective Chema Hendrickson presents to [facility] HPI The patient is a 64-year-old male who presents for follow-up. He reports a decline in his quality of life, with frequent hospitalizations and emergency room visits. He has been receiving blood transfusions due to persistent bleeding from liver varices, which are cauterized monthly. He received 2 units of blood 2 weeks ago in the ER and 1 unit yesterday at the infusion center. He experiences significant stomach pain following endoscopy and cauterization, which lasts about a week. He has been informed that his liver is failing and requires a transplant, buthe lacks the necessary support system for this procedure. He has learned to recognize the symptoms of severe anemia, including hearing loss due to decreased blood flow to his ears. He also reports a persistent dry cough, which has not improved with cough medicine. He undergoes blood work every month and has consulted with Dr. Vincent and Sandra Love regarding his blood loss. He also sees Dr. Torres for endoscopy. He reports no suicidal ideation. He has lost contact with his children for the past 8 years and feels isolated, with no one to check on him regularly. He has undergone extensive testing, including MRI, CT scan, and bone marrow biopsy. He has experienced significant weight loss of approximately 50 pounds since 01/2025, attributed to a decreased appetite. He continues to see Dr. uJne at Dr. Jones's office. He has consulted with a neurosurgeon, Dr. Vlilar, for his back issues, but surgery was deemed too risky due to his bleeding disorder. He continues to take pain medication but is seeking alternative treatments as he experiences back spasms due to ongoing blood loss. He is currently on oxycodone 10 mgand OxyContin 40 mg, totaling 110 mg of oxycodone per day. He received 2 doses of morphine for backpain during his recent ER visit. He also reports swelling in both legs upon standing. He needs glasses and uses [employer] glasses now. Social History: Tobacco: He smokes cigarettes. Living Condition: He lives alone. OTHER NOTES: Review of Systems Constitutional: Positive for fatigue. Respiratory: Negative. Negative for shortness of breath. Cardiovascular: Negative. Gastrointestinal: Positive for abdominal pain. Musculoskeletal: Positive for back pain. Psychiatric/Behavioral: Positive for depressed mood. Negative for suicidal ideas. Objective Vital Signs: BP 140/70 Pulse 84 Temp 98.3 ??F (36.8 ??C) Resp 18 Ht 177.8 cm (70 ) Wt 107 kg (236 lb) SpO2 96% BMI 33.86 kg/m?? Physical Exam Vitals and nursing note reviewed. Constitutional: General: He is not in acute distress. Appearance: Normal appearance. He is not ill-appearing or toxic-appearing. HENT: Head: Normocephalic. Neurological: Mental Status: He is alert. Psychiatric: Mood and Affect: Mood normal. Behavior: Behavior normal. Respiratory: Clear to auscultation, no wheezing, rales or rhonchi Cardiovascular: Regular rate and rhythm, no murmurs, rubs, or gallops Extremities: Bilateral lower extremity swelling Musculoskeletal: Tenderness throughout the back Result Review : Other Results Results - Laboratory Studies: - Urine drug screen (04/2025): Normal Assessment and Plan Diagnoses and all orders for this visit: 1. Need for influenza vaccination (Primary) - Fluzone >6mos ([id number]) 2. Secondary esophageal varices with bleeding 3. Iron deficiency anemia due to chronic blood loss 4. Chronic pain syndrome - oxyCODONE (ROXICODONE) 15 MG immediate release tablet; Take 1 tablet by mouth Every 8 (Eight) Hours As Needed for Moderate Pain. Dispense: 90 tablet; Refill: 0 - oxyCODONE ER (OxyCONTIN) 40 MG 12 hr tablet; Take 1 tablet by mouth Every 12 (Twelve) Hours. Dispense: 60 tablet; Refill: 0 5. Degeneration of intervertebral disc of lumbar region with discogenic back pain and lower extremity pain - oxyCODONE (ROXICODONE) 15 MG immediate release tablet; Take 1 tablet by mouth Every 8 (Eight) Hours As Needed for Moderate Pain. Dispense: 90 tablet; Refill: 0 6. Degeneration of intervertebral disc of lumbar region - oxyCODONE (ROXICODONE) 15 MG immediate release tablet; Take 1 tablet by mouth Every 8 (Eight) Hours As Needed for Moderate Pain. Dispense: 90 tablet; Refill: 0 - oxyCODONE ER (OxyCONTIN) 40 MG 12 hr tablet; Take 1 tablet by mouth Every 12 (Twelve) Hours. Dispense: 60 tablet; Refill: 0 7. Chronic liver failure without hepatic coma 8. Major depressive disorder, recurrent episode, moderate degree - buPROPion SR (WELLBUTRIN SR) 150 MG 12 hr tablet; Take 1 tablet by mouth 3 times a day. Dispense:90 tablet; Refill: 2 DISCUSSION 1. Chronic pain: He reports persistent back pain and spasms, which are currently managed with oxycodone 10 mg and OxyContin 40 mg. The pain medicine helps temporarily, but he needs better management due to ongoing pain and back spasms. A prescription for oxycodone 15 mg, to be taken three times daily, will be provided to enhance pain control without increasing the risk of liver strain associated with Tylenol. A PEG score form will be completed to assess the severity of his pain. Urine drug screen was completed in April 2025. This was appropriate. Taking pain medication appropriately without evidence of misuse or diversion. 2. Liver failure: He has been experiencing recurrent bleeding from liver varices, necessitating frequent blood transfusions. Despite the need for a liver transplant, he is unable to proceed due to the lack of a support system. He is advised to continue regular blood checks every three weeks to monitor his condition and prevent severe anemia. The possibility of hospice care was discussed as a future consideration if his condition continues to deteriorate. 3. Anemia: He received two units of blood in the ER two weeks ago and one unit at the infusion center yesterday. He is advised to continue monthly blood work to monitor his hemoglobin levels. He should seek immediate medical attention if he experiences symptoms of severe anemia, such as palpitations or hearing loss. He reports a dry cough, which may be related to his heart condition due to anemia. 4. Weight loss: He has lost approximately 50 pounds since 01/2025 due to decreased appetite. He is encouraged to eat small, frequent meals and consider nutritional supplements to maintain his weight and overall health. 5. Lower extremity edema: He reports swelling in both lower extremities, which worsens upon standing. This symptom is likely related to his liver failure . He is advised to elevate his legs when possible and monitor for any changes. Patricio dated 08/01/2025 was reviewed and appropriate. Follow Up Return in about 3 months (around 11/01/2025). Patient was given instructions and counseling regarding his condition or for health maintenance advice. Please see specific information pulled into the AVS if appropriate. López Alicea MD Patient or patient sales representative cash registers verbalized consent for the use of Ambient Listening during the visit with López Alicea MD for chart documentation. 08/01/2025 14:59 EDT documented in this encounter Plan of Treatment Upcoming Encounters Date Type Department Care Team (Late st Contact Info) Description 11/06/2025 2:30 PM EST Office Visit [facility] [address] [place], [place] [address] López Alicea MD [address] [place] [address] documented as of this encounter Visit Diagnoses Diagnosis Need for influenza vaccination- Primary Need for prophylactic vaccination and inoculation against influenza Secondary esophageal varices with bleeding Iron deficiency anemia due to chronic blood loss Iron deficiency anemia secondary to blood loss (chronic) Chronic pain syndrome Degeneration of intervertebral disc of lumbar region with discogenic back pain and lower extremity pain Chronic liver failure without hepatic coma Major depressive disorder, recurrent episode, moderate degree Major depressive disorder, recurrent episode, moderate documented in this encounter Additional Health Concerns Assessment Noted Time PHQ-2 Depression Total Score: 1 11/09/19 24 11:34 AM EST documented as of this encounter Care Teams Strap Stitcher Relationship Specialty Start Date End Date López Alicea MD [address] [place] [address] PCP - General 07/16/15 documented as of this encounter
--- OUTSIDE RECORDS SUMMARY | 2025-08-01 21:02 | XMS_ITS | Continuity of Care Document ---
Author Organization [facility] Phone Care Team Providers Care Answering Service Agent Name Role Phone BRAN AGUAYO Admitting AGUSTIN WARD Primary Care BRAN AGUAYO Unavailable BRAN AGUAYO Primary Attending [phone] ALLERGIES AND ADVERSE REACTIONS ALLERGIES AND ADVERSE REACTIONS Code System Allergy Substance Adverse Reaction Date Reaction (Severity) Comment Status Reported By Updated By No Known Allergies [id number] on July 15, 2025 4:08:25 PM [facility] FAMILY HISTORY RELATION: Father Status: Cause of : Malignant tumor of stomach Age at : 60 SNOMED-CT Diagnosis Age At Onset [id number] Hypertensive disorder [id number] Smoker [id number] Alcoholism RELATION: Mother Status: Cause of : Unknown Age at : 74 SNOMED-CT Diagnosis Age At Onset [id number] Chronic obstructive lung disease RESULTS Patient: GREG Rees Date of : [birth year] LABORATORY RESULTS ORDER 100: CBC AUTO W DIFF ( LOINC: 19821-4) ORDER DATE: July 29, 2025 6:03:00 PM [facility] Specimen Source: EDTA Specimen Type: Blood specime n with EDTA PERFORMING LAB: [facility] [address] [facility] [id number] Result Comment: Final Result Date: July 29, 2025 6:12:00 PM [facility] (TECH: AAC) LOINC TEST FLAG RESULT REFERENCE RANGE UPDA KILO BY 6690-2 Leukocytes [#/volume] in Blood by Automated count L 3.7 K/ul 4.0 K/ul - 10.5 K/ul July 29, 2025 6:12:00 PM UTC (TECH: AAC) 789-8 Erythrocytes [#/volume] in Blood by Automated count L 3.4 M/mm3 4.7 M/mm3 - 6.1 M/mm3 July 29, 2025 6:12:00 PM UTC (TECH: AAC) 718-7 Hemoglobin [Mass/volume] in Blood L 7.3 gm/dl 13.5 gm/dl - 18.0 gm/dl July 29, 2025 6:12:00 PM UTC (TECH: AAC) 38126-6 Hematocrit [Volume Fraction] of Blood L 26.1 % 42.0 % - 52.0 % July 29, 2025 6:12:00 PM UTC (TECH: AAC) 787-2 Erythrocyte mean corpuscular volume [Entitic volume] by Automated count L 76.3 fl 78 fl - 100 fl July 29, 2025 6:12:00 PM UTC (TECH: AAC) 785-6 Erythrocyte mean corpuscular hemoglobin [Entitic mass] by Automated count L 21.3 pg 27 pg - 31 pg July 29, 2025 6:12:00 PM UTC (TECH: AAC) 786-4 Erythrocyte mean corpuscular hemoglobin concentration [Mass/volume] by Automated count L 28.0 g/dl 32 g/dl - 36 g/dl July 29, 2025 6:12:00 PM UTC (TECH: AAC) 94429-2 Erythrocyte distribution width [Ratio] H 16.9 % 11.5 % - 14.0 % July 29, 2025 6:12:00 PM UTC (TECH: AAC) 777-3 Platelets [#/volume] in Blood by Automated count L 89 K/ul 150 K/ul - 450 K/ul July 29, 2025 6:12:00 PM UTC (TECH: AAC) 84746-4 Platelet mean volume [Entitic volume] in Blood by Automated count H 11.0 fl 6 fl - 9.5 fl July 29, 2025 6:12:00 PM UTC (TECH: AAC) 26988-2 Neutrophils/100 leukocytes in Blood H 83.7 % 43 % - 65 % July 29, 2025 6:12:00 PM UTC (TECH: AAC) 736-9 Lymphocytes/100 leukocytes in Blood by Automated count L 9.5 % 20.5 % - 45.5 % July 29, 2025 6:12:00 PM UTC (TECH: AAC) 5905-5 Monocytes/100 leukocytes in Blood by Automated count L 5.4 % 5.5 % - 11.7 % July 29, 2025 6:12:00 PM UTC (TECH: AAC) 713-8 Eosinophils/100 leukocytes in Blood by Automated count N 1.1 % 0.9 % - 2.9 % July 29, 2025 6:12:00 PM UTC (TECH: AAC) 706-2 Basophils/100 leukocytes in Blood by Automated count L 0.0 % 0.2 % - 1.0 % July 29, 2025 6:12:00 PM UTC (TECH: AAC) 68364-1 Immature granulocytes/100 leukocytes in Blood by Automated count N 0.3 % 0.0 % - 0.8 % July 29, 2025 6:12:00 PM UTC (TECH: AAC) 35409-4 Nucleated cells [#/volume] in Blood N 0.0 % July 29, 2025 6:12:00 PM UTC (TECH: AAC) 64922-5 Neutrophils [#/volume] in Blood N 3.1 K/uL 2.2 K/uL - 4.8 K/uL July 29, 2025 6:12:00 PM UTC (TECH: AAC) 731-0 Lymphocytes [#/volume] in Blood by Automated count L 0.4 CELL/MCL 1.3 CELL/MCL - 2.9 CELL/MCL July 29, 2025 6:12:00 PM UTC (TECH: AAC) 742-7 Monocytes [#/volume] in Blood by Automated count L 0.2 CELL/MCL 0.3 CELL/MCL - 0.8 CELL/MCL July 29, 2025 6:12:00 PM UTC (TECH: AAC) 711-2 Eosinophils [#/volume] in Blood by Automated count N 0.0 CELL/MCL 0 CELL/MCL - 0.2 CELL/MCL July 29, 2025 6:12:00 PM UTC (TECH: AAC) 704-7 Basophils [#/volume] in Blood by Automated count N 0.0 CELL/MCL 0.0 CELL/MCL - 1.0 CELL/MCL July 29, 2025 6:12:00 PM UTC (TECH: AAC) 25202-3 Immature granulocytes [#/volume] in Blood N 0.01 K/ul July 29, 2025 6:12:00 PM UTC (TECH: AAC) 99594-4 Nucleated cells [#/volume] in Blood N 0.00 K/uL July 29, 2025 6:12:00 PM UTC (TECH: AAC) 49456-9 Manual Differential panel - Blood N NO July 29, 2025 6:12:00 PM UTC (TECH: AAC) ORDER 200: IRON STUDY IRON/T IBC/ SAT (LOINC: 77429-3) ORDER DATE: July 29, 2025 6:03:00 PM UTC Specimen Source: SERUM Specimen Type: Serum specime n PERFORMING LAB: [address] [id number] Result Comment: Final Result Date: July 29, 2025 6:41:00 PM UTC (TECH: PP) LOINC TEST FLAG RESULT REFERENCE RANGE UPDA KILO BY 2498-4 Iron [Mass/volume] in Serum or Plasma L 28 mcg/ml 40 mcg/ml - 180 mcg/ml July 29, 2025 6:41:00 PM UTC (TECH: PP) 2500-7 Iron binding capacity [Mass/volume] in Serum or Plasma H 454 mcg/dl 250 mcg/dl - 450 mcg/dl July 29, 2025 6:41:00 PM UTC (TECH: PP) 2502-3 Iron saturation [Mass Fraction] in Serum or Plasma L 6 15 - 55 July 29, 2025 6:41:00 PM UTC (TECH: PP) ORDER 300: FERRITIN (LOINC: 2276-4) ORDER DATE: July 29, 2025 6:03:00 PM UTC Specimen Source: PLASMA Specimen Type: Plasma specim en PERFORMING LAB: [address] [id number] Result Comment: Final Result Date: July 29, 2025 6:51:00 PM UTC (TECH: PP) LOINC TEST FLAG RESULT REFERENCE RANGE UPDA KILO BY 2276-4 Ferritin [Mass/volume] in Serum or Plasma N 11 ng/ml 3 ng/ml - 244 ng/ml July 29, 2025 6:51:00 PM UTC (TECH: PP) ORDER 400: TYPE/SCREEN (LOIN C: 79639-1) ORDER DATE: July 29, 2025 6:03:00 PM UTC Specimen Source: Specimen Type: PERFORMING LAB: [address] [id number] Result Comment: Final Result Date: July 29, 2025 6:03:00 PM UTC (TECH: gfa) LOINC TEST [place] [address]-7 History of Procedure N Completed July 29, 2025 6:03:00 PM UTC (TECH: HL7) 95525-3 ABO and Rh group panel - Blood N O POSITIVE July 29, 2025 6:03:00 PM UTC (TECH: HL7) 890-4 Blood group antibody screen [Presence] in Serum or Plasma N NEGATIVE July 29, 2025 6:03:00 PM UTC (TECH: HL7) 02735-8 PROMIS item bank - cognitive function - version 2.0 N Completed July 29, 2025 6:03:00 PM UTC (TECH: gfa) ORDER 500: PRBC UNIT PACKED RED CELLS (LOINC: 16639-1) ORDER DATE: July 29, 2025 6:51:00 PM UTC Specimen Source: Specimen Type: PERFORMING LAB: [address] [id number] Result Comment: Final Result Date: July 29, 2025 6:51:00 PM UTC (TECH: HL7) LOINC TEST [place] [address]-2 PROMIS item bank - cognitive function - version 2.0 N Transfused July 29, 2025 6:51:00 PM UTC (TECH: lif) 1251-8 Major crossmatch [Interpretation] by Immediate spin N COMPATIBLE July 29, 2025 6:51:00 PM UTC (TECH: HL7) 881-3 ABO and Rh group [Type] in Blood from Blood product unit N O+ July 29, 2025 6:51:00 PM UTC (TECH: HL7) 09195-4 Lot number of Blood product unit N [id number] July 29, 2025 6:51:00 PM UTC (TECH: HL7) 30044-8 Date [facility] standard operating procedure issued N [id number] July 29, 2025 6:51:00 PM UTC (TECH: HL7) 86096-4 Product version code Software N [id number] July 29, 2025 6:51:00 PM UTC (TECH: HL7) 934-0 Blood product unit ID [#] N Red Blood Cells July 29, 2025 6:51:00 PM UTC (TECH: lif) 3157-5 Volume of Blood N 350 Octo 2024 6:51:00 PM UTC (TECH: MSH) 33047-3 Specimen expiration date of Blood N [id number] July 29, 2025 6:51:00 PM UTC (TECH: HL7) ORDER 600: COMP METABOLIC PA RUDDY (LOINC: 89338-7) ORDER DATE: July 30, 2025 12:13:00 PM UTC Specimen Source: PLASMA Specimen Type: Plasma specim en PERFORMING LAB: [address] [id number] Result Comment: Final Result Date: July 30, 2025 12:47:00 PM UTC (TECH: AAC) LOINC TEST FLAG RESULT REFERENCE RANGE UPDA KILO BY 2951-2 Sodium [Moles/volume ] in Serum or Plasma N 137 mmol/L 136 mmol/L - 145 mmol/L July 30, 2025 12:47:00 PM UTC (TECH: AAC) 2823-3 Potassium [Moles/vol ume] in Serum or Plasma N 3.8 mmol/L 3.6 mmol/L - 5.0 mmol/L July 30, 2025 12:47:00 PM UTC (TECH: AAC) 5-0 Chloride [Moles/volu me] in Serum or Plasma N 101 mmol/L 98 mmol/L - 107 mmol/L July 30, 2025 12:47:00 PM UTC (TECH: AAC) 2027-9 Carbon dioxide, tota l [Moles/volume] in Serum or Plasma N 28.4 mmol/L 21.0 mmol/L - 32.0 mmol/L July 30, 2025 12:47:00 PM UTC (TECH: AAC) 43186-2 Anion gap in Blood N 11.4 O ct2024 12:47:00 PM UTC (TECH: AAC) 2345-7 Glucose [Mass/volume ] in Serum or Plasma N 115 mg/dl 70 mg/dl - 120 mg/dl July 30, 2025 12:47:00 PM UTC (TECH: AAC) 6299-2 Urea nitrogen [Mass/volume] in Blood H 19 mg/dL 7 mg/dL - 18 mg/dL Octobe r 2024 12:47:00 PM UTC (TECH: AAC) 47793-6 Creatinine [Moles/vo lume] in Blood H 1.4 mg/dL 0.6 mg/dL - 1.3 mg/dL July 30, 2025 12:47:00 PM UTC (TECH: AAC) 78722-7 Glomerular filtratio n rate/1.73 sq M.predicted by Creatinine-based formula (MDRD) L 56 mlpermin 60 mlpermin July 30, 2025 12:47:00 PM UTC (TECH: AAC) 95162-9 Osmolality of Serum or Plasma by calculated by sum of electrolytes N 288 mosm/kg 275 mosm/kg - 301 mosm/kg July 30, 2025 12:47:00 PM UTC (TECH: AAC) 2885-2 Protein [Mass/volume ] in Serum or Plasma N 7.1 g/dl 6.4 g/dl - 8.2 g/dl July 30, 2025 12:47:00 PM UTC (TECH: AAC) 1751-7 Albumin [Mass/volume ] in Serum or Plasma L 2.9 g/dl 3.4 g/dl - 5.0 g/dl July 30, 2025 12:47:00 PM UTC (TECH: AAC) 2336-6 Globulin [Mass/volum e] in Serum N 4.2 July 30, 2025 12:47:00 PM UTC (TECH: AAC) 1759-0 Albumin/Globulin [Ma ss Ratio] in Serum or Plasma N 0.7 0.7 - 2 Octobe r 2024 12:47:00 PM UTC (TECH: AAC) 12027-1 Calcium [Mass/volume ] in Serum or Plasma L 8.4 mg/dl 8.5 mg/dl - 10.5 mg/dl July 30, 2025 12:47:00 PM UTC (TECH: AAC) 1975-2 Bilirubin.total [Mass/volume] in Serum or Plasma H 1.10 mg/dL 0.10 mg/dL - 1.00 mg/dL July 30, 2025 12:47:00 PM [facility] (TECH: AAC) 1920-8 Aspartate aminotrans ferase [Enzymatic activity/volume] in Serum or Plasma N 33 U/L 0 U/L - 37 U/L July 30, 2025 12:47:00 PM [facility] (TECH: AAC) 1742-6 Alanine aminotransfe rase [Enzymatic activity/volume] in Serum or Plasma N 21 U/L 0 U/L - 65 U/L July 30, 2025 12:47:00 PM [facility] (TECH: AAC) 6768-6 Alkaline phosphatase [Enzymatic activity/volume] in Serum or Plasma H 145 U/L 46 U/L - 116 U/L July 30 12:47:00 PM [facility] (TECH: AAC) LABORATORY NARRATIVE RESULTS Information is not available [...] Indication Dispense Data Comments Physician Updated By No Inpatient Medication Info rmation Available SOCIAL HISTORY SOCIAL HISTORY - Smoking Status SNOMED-CT Social History Element Description Effective Dates Offered Cessation Comment Updated By [id number] Historical Tobacco smoking status Never Smoked [id number] on July 15, 2025 4:38:46 PM [facility] [id number] Historical Tobacco smoking status Unknown If Ever Smoked [id number] on February 05, 2025 4:56:06 AM [facility] SOCIAL HISTORY - Gender Sex: Male SOCIAL HISTORY - Status : status i nformation is not available Intention in Next Year: intention information is not available SOCIAL HISTORY - Assessments Code System Description Status Date Value of Assessment Updated By Comment Assessment Information is no t available SOCIAL HISTORY - [place] Affiliation [place] information is not av ailable SOCIAL HISTORY - Legal Sex Legal Sex information is not available SOCIAL HISTORY - Sexual Behavior Sexual Orientation Gender Identity SNOMED-CT Description SNO MED -CT Description Activity Level No of Partners Partner Type UpdatedBy Information is not available SOCIAL HISTORY - Occupation Occupation information is no t available HEALTH CONCERNS Problems Concern Status Health Concern problem infor mation not available. Smoking Status Status Years Used Consumed packs p er day Health Concern smoking histo ry information not available. Family History Concern Status Health Concern family histor y information not available. ENCOUNTERS ENCOUNTER INFORMATION Reason for Visit Not Specified Admission July 29, 2025 5:35:[address] [id number] Discharge July 29, 2025 5:35:00 PM [place] DISCHARGED TO HOME OR SELF CARE ENCOUNTER DIAGNOSES Notes information is not dai ilable. Code System Diagnosis Onset Date Diagnosis information is not available. 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 Role on Team Location Telecom Status Start Date End Aaron e Updated By SYLVIA MEDINA PCP normal July 29, 2025 4:00:00 AM [facility] July 29, 2025 5:35:00 PM UTC [id number] on July 29, 2025 5:36:43 PM [facility] DEDE DUDLEY Referring normal July 29, 2025 4:00:00 AM [facility] July 29, 2025 5:35:00 PM UTC [id number] on July 29, 2025 5:36:43 PM [facility] DEDE DUDLEY Attending normal July 29, 2025 4:00:00 AM [facility] July 29, 2025 5:35:00 PM UTC [id number] on July 29, 2025 5:36:43 PM [facility] DEDE DUDLEY Admitting normal July 29, 2025 4:00:00 AM [facility] July 29, 2025 5:35:00 PM UTC [id number] on July 29, 2025 5:36:43 PM [facility]
--- OUTSIDE RECORDS SUMMARY | 2025-08-25 21:04 | XMS_ITS | Continuity of Care Document ---
Author Organization [facility] Phone Care Team Providers Care Recycling Center Operator Name Role Phone BRAN AGUAYO Primary Attending [phone] AGUSTIN WARD Primary Care BRAN AGUAYO Unavailable BRAN AGUAYO Admitting ALLERGIES AND ADVERSE REACTIONS ALLERGIES AND ADVERSE REACTIONS Code System Allergy Substance Adverse Reaction Date Reaction (Severity) Comment Status Reported By Updated By No Known Allergies [id number] on July 15, 2025 4:08:25 PM [facility] [[email or web address]] FAMILY HISTORY RELATION: Father Status: Cause of : Malignant tumor of stomach Age at : 60 SNOMED-CT Diagnosis Age At Onset [id number] Hypertensive disorder [id number] Smoker [id number] Alcoholism RELATION: Mother Status: Cause of : Unknown Age at : 74 SNOMED-CT Diagnosis Age At Onset [id number] Chronic obstructive lung disease RESULTS Patient: GREG Rees Date of : [birth year] LABORATORY RESULTS ORDER 100: COMP METABOLIC PA RUDDY (LOINC: 51558-1) ORDER DATE: August 21, 2025 7:54:00 PM [facility] [[email or web address]] Specimen Source: PLASMA Specimen Type: Plasma specim en PERFORMING LAB: [place] [id number] [facility] [id number] Result Comment: Final Result Date: August 21, 2025 9:46:00 PM [facility] [[email or web address]] (TECH: KAC) LOINC TEST FLAG RESULT REFERENCE RANGE UPDA KILO BY 2951-2 Sodium [Moles/volume ] in Serum or Plasma N 137 mmol/L 136 mmol/L - 145 mmol/L August 21, 2025 9:46:00 PM [facility] (TECH: KAC) 2823-3 Potassium [Moles/volume] in Serum or Plasma N 3.7 mmol/L 3.6 mmol/L - 5.0 mmol/L August 21, 2025 9:46:00 PM [facility] (TECH: [employer]) 5-0 Chloride [Moles/volume] in Serum or Plasma N 102 mmol/L 98 mmol/L - 107 mmol/L August 21, 2025 9:46:00 PM UTC (TECH: [employer]) 2027-9 Carbon dioxide, tota l [Moles/volume] in Serum or Plasma N 29.5 mmol/L 21.0 mmol/L - 32.0 mmol/L August 21, 2025 9:46:00 PM UTC (TECH: [employer]) 02916-2 Anion gap in Blood N 9.2 N ov2024 9:46:00 PM UT (TECH: [employer]) 2345-7 Glucose [Mass/volume ] in Serum or Plasma N 91 mg/dl 70 mg/dl - 120 mg/dl August 21, 2025 9:46:00 PM [facility] (TECH: [employer]) 6299-2 Urea nitrogen [Mass/volume] in Blood N 17 mg/dL 7 mg/dL - 18 mg/dL August 21, 2025 9:46:00 PM UTC (TECH: [employer]) 41040-2 Creatinine [Moles/volume] in Blood N 1.2 mg/dL 0.6 mg/dL - 1.3 mg/dL August 21, 2025 9:46:00 PM [place] (TECH: [employer]) 17811-0 Glomerular filtratio n rate/1.73 sq M.predicted by Creatinine-based formula (MDRD) N 68 mlpermin 60 mlpermin August 21, 2025 9:46:00 PM [place] (TECH: [employer]) 66901-6 Osmolality of Serum or Plasma by calculated by sum of electrolytes N 286 mosm/kg 275 mosm/kg - 301 mosm/kg August 21, 2025 9:46:00 PM UT (TECH: [employer]) 2885-2 Protein [Mass/volume ] in Serum or Plasma N 6.8 g/dl 6.4 g/dl - 8.2 g/dl August 21, 2025 9:46:00 PM [place] (TECH: [employer]) 1751-7 Albumin [Mass/volume ] in Serum or Plasma L 2.7 g/dl 3.4 g/dl - 5.0 g/dl August 21, 2025 9:46:00 PM [facility] ([employer]) 2336-6 Globulin [Mass/volum e] in Serum N 4.1 August 21, 2025 9:46:00 PM [place] ([employer]: [employer]) 1759-0 Albumin/Globulin [Ma ss Ratio] in Serum or Plasma N 0.7 0.7 - 2 August 21, 2025 9:46:00 PM [place] ([employer]: [employer]) 31674-7 Calcium [Mass/volume ] in Serum or Plasma L 8.2 mg/dl 8.5 mg/dl - 10.5 mg/dl August 21, 2025 9:46:00 PM [place] ([employer]: [employer]) 1975-2 Bilirubin.total [Mass/volume] in Serum or Plasma N 0.50 mg/dL 0.10 mg/dL - 1.00 mg/dL August 21, 2025 9:46:00 PM [place] ([employer]: [employer]) 1920-8 Aspartate aminotransferase [Enzymatic activity/volume] in Serum or Plasma N 30 U/L 0 U/L - 37 U/L August 21, 2025 9:46:00 PM [place] ([employer]: [employer]) 1742-6 Alanine aminotransferase [Enzymatic activity/volume] in Serum or Plasma N 23 U/L 0 U/L - 65 U/L August 21, 2025 9:46:00 PM [place] ([employer]: [employer]) 6768-6 Alkaline phosphatase [Enzymatic activity/volume] in Serum or Plasma H 145 U/L 46 U/L - 116 U/L August 21, 2025 9:46:00 PM UT (TECH: [employer]) ORDER 200: IRON STUDY IRON/T IBC/ SAT (LOINC: 72673-7) ORDER DATE: August 21, 2025 7:54:00 PM [facility] Specimen Source: SERUM Specimen Type: Serum specime n PERFORMING LAB: [address] [id number] Result Comment: Final Result Date: August 21, 2025 8:32:00 PM UT (TECH: [employer]) LOINC TEST FLAG RESULT REFERENCE RANGE UPDA KILO BY 2498-4 Iron [Mass/volume] in Serum or Plasma L 16 mcg/ml 40 mcg/ml - 180 mcg/ml August 21, 2025 8:32:00 PM UTC (TECH: KAC) 2500-7 Iron binding capacity [Mass/volume] in Serum or Plasma N 408 mcg/dl 250 mcg/dl - 450 mcg/dl August 21, 2025 8:32:00 PM UTC (TECH: KAC) 2502-3 Iron saturation [Mass Fraction] in Serum or Plasma L 4 15 - 55 August 21, 2025 8:32:00 PM UTC (TECH: KAC) ORDER 300: CBC AUTO W DIFF ( LOINC: 74081-1) ORDER DATE: August 21, 2025 7:54:00 PM UTC Specimen Source: EDTA Specimen Type: Blood specime n with EDTA PERFORMING LAB: [address] [id number] Result Comment: Final Result Date: August 21, 2025 9:06:00 PM UTC (TECH: TH) LOINC TEST FLAG RESULT REFERENCE RANGE UPDA KILO BY 6690-2 Leukocytes [#/volume ] in Blood by Automated count LL 1.8 K/ul 4.0 K/ul - 10.5 K/ul August 21, 2025 9:06:00 PM UTC (TECH: TH) 789-8 Erythrocytes [#/volume] in Blood by Automated count L 3.3 M/mm3 4.7 M/mm3 - 6.1 M/mm3 August 21, 2025 9:06:00 PM UTC (TECH: TH) 718-7 Hemoglobin [Mass/volume] in Blood L 7.2 gm/dl 13.5 gm/dl - 18.0 gm/dl August 21, 2025 9:06:00 PM UTC (TECH: TH) 90348-8 Hematocrit [Volume Fraction] of Blood L 26.3 % 42.0 % - 52.0 % August 21, 2025 9:06:00 PM UTC (TECH: TH) 787-2 Erythrocyte mean corpuscular volume [Entitic volume] by Automated count N 80.2 fl 78 fl - 100 fl August 21, 2025 9:06:00 PM UTC (TECH: TH) 785-6 Erythrocyte mean corpuscular hemoglobin [Entitic mass] by Automated count L 22.0 pg 27 pg - 31 pg August 21, 2025 9:06:00 PM UTC (TECH: TH) 786-4 Erythrocyte mean corpuscular hemoglobin concentration [Mass/volume] by Automated count L 27.4 g/dl 32 g/dl - 36 g/dl August 21, 2025 9:06:00 PM UTC (TECH: TH) 02060-5 Erythrocyte distribution width [Ratio] H 17.8 % 11.5 % - 14.0 % August 21, 2025 9:06:00 PM UTC (TECH: TH) 777-3 Platelets [#/volume] in Blood by Automated count L 80 K/ul 150 K/ul - 450 K/ul August 21, 2025 9:06:00 PM UTC (TECH: TH) 33056-7 Platelet mean volume [Entitic volume] in Blood by Automated count H 10.5 fl 6 fl - 9.5 fl August 21, 2025 9:06:00 PM UTC (TECH: TH) 08304-7 Neutrophils/100 leukocytes in Blood H 70.2 % 43 % - 65 % August 21, 2025 9:06:00 PM UTC (TECH: TH) 736-9 Lymphocytes/100 leukocytes in Blood by Automated count L 17.7 % 20.5 % - 45.5 % August 21, 2025 9:06:00 PM UTC (TECH: TH) 5905-5 Monocytes/100 leukocytes in Blood by Automated count N 8.6 % 5.5 % - 11.7 % August 21, 2025 9:06:00 PM UTC (TECH: TH) 713-8 Eosinophils/100 leukocytes in Blood by Automated count N 2.3 % 0.9 % - 2.9 % August 21, 2025 9:06:00 PM UTC (TECH: TH) 706-2 Basophils/100 leukocytes in Blood by Automated count N 0.6 % 0.2 % - 1.0 % August 21, 2025 9:06:00 PM UTC (TECH: TH) 02898-2 Immature granulocytes/100 leukocytes in Blood by Automated count N 0.6 % 0.0 % - 0.8 % August 21, 2025 9:06:00 PM UTC (TECH: TH) 56339-4 Nucleated cells [#/volume] in Blood N 0.0 % August 21, 2025 9:06:00 PM UTC (TECH: TH) 27012-6 Neutrophils [#/volume] in Blood L 1.2 K/uL 2.2 K/uL - 4.8 K/uL August 21, 2025 9:06:00 PM UTC (TECH: TH) 731-0 Lymphocytes [#/volume] in Blood by Automated count L 0.3 CELL/MCL 1.3 CELL/MCL - 2.9 CELL/MCL August 21, 2025 9:06:00 PM UTC (TECH: TH) 742-7 Monocytes [#/volume] in Blood by Automated count L 0.2 CELL/MCL 0.3 CELL/MCL - 0.8 CELL/MCL August 21, 2025 9:06:00 PM UTC (TECH: TH) 711-2 Eosinophils [#/volume] in Blood by Automated count N 0.0 CELL/MCL 0 CELL/MCL - 0.2 CELL/MCL August 21, 2025 9:06:00 PM UTC (TECH: TH) 704-7 Basophils [#/volume] in Blood by Automated count N 0.0 CELL/MCL 0.0 CELL/MCL - 1.0 CELL/MCL August 21, 2025 9:06:00 PM UTC (TECH: TH) 11492-9 Immature granulocyte s [#/volume] in Blood N 0.01 K/ul August 21, 2025 9:06:00 PM UTC (TECH: TH) 20393-5 Nucleated cells [#/volume] in Blood N 0.00 K/uL August 21, 2025 9:06:00 PM UTC (TECH: TH) 94113-1 Manual Differential panel - Blood N YES August 21, 2025 9:06:00 PM UTC (TECH: TH) 77733-1 Neutrophils.segmente d /100 leukocytes in Blood by Automated count N 76 % 42 % - 76 % August 21, 2025 9:06:00 PM UTC (TECH: TH) 736-9 Lymphocytes/100 leukocytes in Blood by Automated count L 10 % 15 % - 41 % August 21, 2025 9:06:00 PM UTC (TECH: TH) 5905-5 Monocytes/100 leukocytes in Blood by Automated count N 4 % 2 % - 9 % August 21, 2025 9:06:00 PM UTC (TECH: TH) 713-8 Eosinophils/100 leukocytes in Blood by Automated count H 4 % 0 % - 3 % August 21, 2025 9:06:00 PM UTC (TECH: TH) 45425-8 Metamyelocytes [#/volume] in Blood H 6 % 0 % - 1 % August 21, 2025 9:06:00 PM UTC (TECH: TH) 778-1 Platelets [#/volume] in Blood by Manual count N SL DECREASED ADEQUATE August 21, 2025 9:06:00 PM UTC (TECH: TH) 5908-9 Platelets Giant [Presence] in Blood by Light microscopy N SLIGHT NONE SEEN August 21, 2025 9:06:00 PM UTC (TECH: TH) 702-1 Anisocytosis [Presence] in Blood by Light microscopy N 2+ NONE SEEN August 21, 2025 9:06:00 PM UTC (TECH: TH) 728-6 Hypochromia [Presence] in Blood by Light microscopy N 2+ NONE SEEN August 21, 2025 9:06:00 PM UTC (TECH: TH) 38058-2 Elliptocytes [Presence] in Blood by Light microscopy N SLIGHT NONE SEEN August 21, 2025 9:06:00 PM UTC (TECH: TH) ORDER 400: FERRITIN (LOINC: 2276-4) ORDER DATE: August 21, 2025 7:54:00 PM UTC Specimen Source: PLASMA Specimen Type: Plasma specim en PERFORMING LAB: [address] [id number] Result Comment: Final Result Date: August 21, 2025 9:46:00 PM UTC (TECH: KAC) LOINC TEST FLAG RESULT REFERENCE RANGE UPDA KILO BY 2276-4 Ferritin [Mass/volume] in Serum or Plasma N 18 ng/ml 3 ng/ml - 244 ng/ml August 21, 2025 9:46:00 PM UTC (TECH: KAC) ORDER 500: TYPE/SCREEN (LOIN C: 35441-6) ORDER DATE: August 21, 2025 7:54:00 PM UTC Specimen Source: Specimen Type: PERFORMING LAB: [address] [id number] Result Comment: Final Result Date: August 21, 2025 7:52:00 PM UTC (TECH: hce) LOINC TEST [place] [address]-3 History of Procedure N Completed August 21, 2025 7:52:00 PM UTC (TECH: HL7) 40165-8 ABO and Rh group panel - Blood N O POSITIVE August 21, 2025 7:52:00 PM UTC (TECH: HL7) 890-4 Blood group antibody screen [Presence] in Serum or Plasma N NEGATIVE August 21, 2025 7:52:00 PM UTC (TECH: HL7) 69372-7 PROMIS item bank - cognitive function - version 2.0 N Completed August 21, 2025 7:52:00 PM UTC (TECH: hce) ORDER 600: PRBC UNIT PACKED RED CELLS (LOINC: 73085-3) ORDER DATE: August 25, 2025 4:11:00 PM UTC Specimen Source: Specimen Type: PERFORMING LAB: [address] [id number] Result Comment: Final Result Date: August 25, 2025 4:19:00 PM UTC (TECH: SHG) LOINC TEST [place] [address]-3 PROMIS item bank - cognitive function - version 2.0 N TRANSFUSED August 25 4:19:00 PM UTC (TECH: SHG) 1251-8 Major crossmatch [Interpretation] by Immediate spin N COMPATIBLE August 25 4:19:00 PM UTC (TECH: SHG) 881-3 ABO and Rh group [Type] in Blood from Blood product unit N O POS August 25, 2025 4:19:00 PM UTC (TECH: SHG) 13066-9 Lot number of Blood product unit N [id number] August 25 4:19:00 PM UTC (TECH: SHG) 84201-9 Date emergency operations center standard operating procedure issued N [id number] August 25 4:19:00 PM UTC (TECH: SHG) 60035-3 Product version code Software N [id number] August 25 4:19:00 PM UTC (TECH: SHG) 934-0 Blood product unit I D [#] N RED BLOOD CELLS August 25 4:19:00 PM [facility] [[email or web address]] (TECH: [employer]) 3157-5 Volume of Blood N 350 Nove mber 2024 4:19:00 PM [facility] [[email or web address]] (TECH: [employer]) 64903-0 Specimen expiration date of Blood N [id number] August 25 4:19:00 PM [facility] [[email or web address]] (TECH: SHG) LABORATORY NARRATIVE RESULTS Information is not available [...] Effective Dates Offered Cessation Comment Updated By [id number] Historical Tobacco smoking status Never Smoked [id number] on July 15, 2025 4:38:46 PM [facility] [[email or web address]] [id number] Historical Tobacco smoking status Unknown If Ever Smoked [id number] on February 05, 2025 4:56:06 AM [facility] [[email or web address]] SOCIAL HISTORY - Gender Sex: Male SOCIAL HISTORY - Status : status i nformation is not available Intention in Next Year: intention information is not available SOCIAL HISTORY - Assessments Code System Description Status Date Value of Assessment Updated By Comment Assessment Information is no t available SOCIAL HISTORY - [place] Affiliation [place] information is not av ailable SOCIAL HISTORY [...] INFORMATION Reason for Visit Not Specified Admission August 21, 2025 6:41:[address] [id number] Discharge August 21, 2025 6:41:00 PM UTC DISCHARGED TO HOME OR SELF CARE ENCOUNTER DIAGNOSES Notes information is not dai ilable. Code System Diagnosis Onset Date Diagnosis information is not available. 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
--- OUTSIDE RECORDS SUMMARY | 2025-08-29 09:55 | XMS_ITS | Continuity of Care Document ---
Author Organization [facility] Phone Care Team Providers Care Packaging Mechanic Name Role Phone LUIS CARMEN Admitting AGUSTIN WARD Primary Care LUIS CARMEN Primary Attending ALLERGIES AND ADVERSE REACTIONS ALLERGIES AND ADVERSE REACTIONS Code System Allergy Substance Adverse Reaction Date Reaction (Severity) Comment Status Reported By Updated By No Known Allergies [email or web address] on August 27, 2025 6:15:23 PM UTC FAMILY HISTORY RELATION: Father Status: Cause of : Malignant tumor of stomach Age at : 60 SNOMED-CT Diagnosis Age At Onset [id number] Hypertensive disorder [id number] Smoker [id number] Alcoholism RELATION: Mother Status: Cause of : Unknown Age at : 74 SNOMED-CT Diagnosis Age At Onset [id number] Chronic obstructive lung disease RESULTS Patient: GREG Rees Date of : [birth year] 1 LABORATORY RESULTS ORDER 200: PRBC UNIT PACKED RED CELLS (LOINC: 58541-3) ORDER DATE: August 21, 2025 9:41:00 PM UTC Specimen Source: Specimen Type: PERFORMING LAB: [address] [id number] Result Comment: Final Result Date: August 21, 2025 9:41:00 PM UTC (TECH: HL7) LOINC TEST [place] [address]-7 PROMIS item bank - cognitive function - version 2.0 N Transfused August 21, 2025 9:41:00 PM UTC (TECH: lif) 1251-8 Major crossmatch [Interpretation] by Immediate spin N COMPATIBLE August 21, 2025 9:41:00 PM UTC (TECH: HL7) 881-3 ABO and Rh group [Type] in Blood from Blood product unit N O+ August 21, 2025 9:41:00 PM UTC (TECH: HL7) 32558-5 Lot number of Blood product unit N [id number] August 21, 2025 9:41:00 PM UTC (TECH: HL7) 83935-2 Date [facility] standard operating procedure issued N [id number] August 21, 2025 9:41:00 PM UTC (TECH: HL7) 80012-8 Product version code Software N [id number] August 21, 2025 9:41:00 PM UTC (TECH: HL7) 934-0 Blood product unit ID [#] N Red Blood Cells August 21, 2025 9:41:00 PM UTC (TECH: lif) 3157-5 Volume of Blood N 350 Nove mber 2024 9:41:00 PM UTC (TECH: MSH) 23223-2 Specimen expiration date of Blood N [id number] August 21, 2025 9:41:00 PM UTC (TECH: HL7) ORDER 300: HGB AND HCT (LOIN C: 67970-6) ORDER DATE: August 22, 2025 4:42:00 PM UTC Specimen Source: EDTA Specimen Type: Blood specime n with EDTA PERFORMING LAB: [address] [id number] Result Comment: Final Result Date: August 22, 2025 9:48:00 PM UTC (TECH: MH2) LOINC TEST FLAG RESULT REFERENCE RANGE UPDA KILO BY 718-7 Hemoglobin [Mass/volume] in Blood L 7.7 gm/dl 13.5 gm/dl - 18.0 gm/dl August 22, 2025 9:48:00 PM UTC (TECH: MH2) 91494-0 Hematocrit [Volume Fraction] of Blood L 27.5 % 42.0 % - 52.0 % August 22, 2025 9:48:00 PM UTC (TECH: MH2) LABORATORY NARRATIVE RESULTS Information is not available RADIOLOGY RESULTS Information is not available PATHOLOGY NARRATIVE RESULTS Information is not available MICROBIOLOGY RESULTS No Micro Labs/Results Exist for Patient BLOOD ADMIN RESULTS Information is not available MEDICATIONS HOME MEDICATIONS Status RXNORM NDC Medication Dose Route Frequency Dates Comments Reported By Updated By Active [id number] 53333 03808 5 Allopurinol Tablet 300 MG 1.0 TAB ORAL DAILY Last Dose: [id number] on August 27, 2025 6:14:55 PM [facility] Active 173984 84737 10540 0 amLODIPine Besylate Tablet 10 MG 1.0 TAB ORAL DAILY Last Dose: [id number] on August 27, 2025 6:14:55 PM [facility] Active 673364 60150 44563 0 buPROPion HCl ER (SR) Tablet Extended Release 12 Hour 150 MG 1.0 TAB ORAL TID Last Dose: [id number] on August 27, 2025 6:14:55 PM [facility] Active 237344 06864 37475 1 busPIRone HCl Tablet 10 MG 1.0 TAB ORAL BID Last Dose: [id number] on August 27, 2025 6:14:56 PM [facility] Active 6149038 47723 70164 1 Colchicine Capsule 0.6 MG 0.0 ORAL DAILY Last Dose: [id number] on August 27, 2025 6:14:56 PM [facility] Active 044745 03748 62338 9 Ferrous Sulfate Oral Tablet 27 MG 1.0 DOS ORAL DAILY Last Dose: [id number] on August 27, 2025 6:14:56 PM [facility] Active 054897 24822 69003 1 furosemide 40 mg tablet 1.0 TAB ORAL DAILY Last Dose: [id number] on August 27, 2025 6:14:56 PM [facility] Active 278115 94514 98809 1 Gabapentin Tablet 800 MG 1.0 TAB ORAL TID Last Dose: [id number] on August 27, 2025 6:14:56 PM [facility] Active 911694 86311 41717 2 hydrOXYzine Pamoate Capsule 50 MG 1.0 CAP ORAL DAILYPRN Last Dose: [id number] on August 27, 2025 6:14:56 PM [facility] Active 064671 35387 82525 0 OLANZapine Tablet 5 MG 1.0 TAB ORAL DAILY Last Dose: [id number] on August 27, 2025 6:14:56 PM [facility] Active 7188948 94021 83516 1 oxyCODONE-Ac etaminophen Tablet 10-325 MG 1.0 TAB ORAL DAILYPRN Last Dose: [id number] on August 27, 2025 6:14:56 PM [facility] Active 8758875 53403 83134 0 OxyCONTIN Oral Tablet ER 12 Hour Abuse-Deterr ent 40 MG 1.0 TAB ORAL BID Last Dose: [id number] on August 27, 2025 6:14:56 PM [place] Active 671030 21000 86429 0 Pantoprazole Sodium Tablet Delayed Release 40 MG 1.0 TAB ORAL DAILY Last Dose: ymc7299 on August 27, 2025 6:14:57 PM [place] Active 587896 25560 97655 5 Sertraline HCl Tablet 100 MG 1.0 TAB ORAL DAILY Last Dose: [id number] on August 27, 2025 6:14:57 PM [place] Active 393717 73380 70874 1 spironolacto ne 100 mg tablet 1.0 TAB ORAL DAILY Last Dose: [id number] on August 27, 2025 6:14:57 PM [place] Active 314811 05921 86895 9 SUMAtriptan Succinate Tablet 100 MG 1.0 TAB ORAL DAILY Last Dose: cxi1832 on August 27, 2025 6:14:57 PM [facility] Active 849745 11002 33334 1 Tamsulosin HCl Capsule 0.4 MG 1.0 TAB ORAL DAILY Last Dose: gtg5630 on August 27, 2025 6:14:57 PM [place] Active 321704 02217 18837 7 tiZANidine HCl Capsule 4 MG 1.0 TAB ORAL DAILYPRN Last Dose: [id number] on August 27, 2025 6:14:57 PM [facility] DISCHARGE MEDICATIONS Status RXNORM [facility] Medication Dose Route Frequency Dates Dis pense Data Comments Physician Updated By No Discharge Medication Info rmation Available [facility]PATIENT MEDICATIONS [facility] Dose Route Frequency Rat e Quantity Dates Indication Dispense Data Comments Physician Updated By Kaitlin inued [id number] 7370 8077 501 ferumoxytol (FERAHEME) 510 MG/17 ML SOLN 510.0 MG INTRAV ENOUS ONE TIME ADMINISTRA TION (UNSCHEDUL ED) 508.0 ML/HR Start: Julobe r 2024 1:48:0 0 PM UT End: Julobe r 2024 1:48:2 1 PM [place] NELLA Briggs [id number] on August 01, 2025 1:48:00 PM [place] Kaitlin inued 7444767 0040 9710 167 sodium chloride 0.9% SOLN 100.0 ML INTRAV ENOUS ONE TIME ADMINISTRA TION (UNSCHEDUL ED) 508.0 ML/HR Start: [facility] r 2024 1:48:0 0 PM UTC End: [facility] r 2024 1:48:2 1 PM UTC NELLA Briggs [id number] on August 01, 2025 1:48:00 PM UTC Discont inued 6979468 9335 8077 501 ferumoxytol (FERAHEME) 510 MG/17 ML SOLN 510.0 MG INTRAV ENOUS ONE TIME ADMINISTRA TION (UNSCHEDUL ED) 508.0 ML/HR [facility]: [facility] 2024 1:00:0 0 PM UTC End: [facility] 2024 5:33:5 0 PM UTC NELLA STONER on August 22, 2025 5:32:00 PM UTC Discont inued 2813101 0040 9710 167 sodium chloride 0.9% SOLN 100.0 ML INTRAV ENOUS ONE TIME ADMINISTRA TION (UNSCHEDUL ED) 508.0 ML/HR Start: [facility] 2024 1:00:0 0 PM UTC End: 2024 5:32:4 9 PM UTC NELLA STONER on August 22, 2025 5:32:00 PM UTC Discont inued 960767 4529 4677 361 acetaminoph en (TYLENOL) 325 MG TABS 650.0 MG ORAL ONE TIME ADMINISTRA TION (UNSCHEDUL ED) Start: [facility] 2024 1:20:0 0 PM UTC End: [facility]2024 2:30:4 6 PM UTC NELLA Briggs [id number] on August 22, 2025 2:30:00 PM UTC Discont inued 7222269 7276 8363 701 cetirizine (ZyrTEC) 10 MG TABS 10.0 MG ORAL ONE TIME ADMINISTRA TION (UNSCHEDUL ED) Start: 2024 1:20:0 0 PM UTC End: 2024 2:30:5 9 PM UTC NELLA Briggs [id number] on August 22, 2025 2:30:00 PM UTC Discont inued 0479446 5872 7234 025 iron sucrose (VENOFER) 100 MG/5 ML SOLN 200.0 MG INTRAV ENOUS GIVE ONE DOSE NOW 110.0 ML/HR Start: 2024 5:34:0 0 PM UTC End: 2024 5:43:2 7 PM UTC NELLA Briggs [id number] on August 25, 2025 5:43:00 PM UTC Discont inued 8607027 0040 9710 167 sodium chloride 0.9% SOLN 100.0 ML INTRAV ENOUS GIVE ONE DOSE NOW 110.0 ML/HR Start: 2024 5:34:0 0 PM UTC End: 2024 8:15:2 7 PM UTC NELLA Briggs [id number] on August 25, 2025 5:43:00 PM UTC Discont inued 6980310 1240 7234 025 iron sucrose (VENOFER) 100 MG/5 ML SOLN 200.0 MG INTRAV ENOUS ONE TIME ADMINISTRA TION (UNSCHEDUL ED) 100.0 ML/HR Start: 2024 1:00:0 0 PM UTC End: 2024 6:08:2 5 PM UTC NELLA Briggs [id number] on August 25, 2025 6:08:00 PM UTC Discont inued 1171747 0040 9710 167 sodium chloride 0.9% SOLN 100.0 ML INTRAV ENOUS ONE TIME ADMINISTRA TION (UNSCHEDUL ED) 100.0 ML/HR Start: 2024 1:00:0 0 PM UTC End: 2024 6:08:2 5 PM UTC NELLA Briggs [id number] on August 25, 2025 6:08:00 PM UTC Discont inued 0801226 0570 7234 025 iron sucrose (VENOFER) 100 MG/5 ML SOLN 200.0 MG INTRAV ENOUS ONE TIME ADMINISTRA TION (UNSCHEDUL ED) 110.0 ML/HR Start: 2024 5:43:0 0 PM UTC End: 2024 5:05:5 6 PM UTC NELLA Briggs [id number] on August 26, 2025 5:06:00 PM UTC Discont inued 8739900 0040 9710 167 sodium chloride 0.9% SOLN 100.0 ML INTRAV ENOUS ONE TIME ADMINISTRA TION (UNSCHEDUL ED) 110.0 ML/HR Start: 2024 5:43:0 0 PM UTC End: 2024 5:05:5 6 PM UTC NELLA SMITH Brigitte [id number] on August 26, 2025 5:06:00 PM UTC Discont inued 0581003 8572 7234 025 iron sucrose (VENOFER) 100 MG/5 ML SOLN 200.0 MG INTRAV ENOUS ONE TIME ADMINISTRA TION (UNSCHEDUL ED) 110.0 ML/HR Start: 2024 1:00:0 0 PM UTC End: 2024 6:13:1 1 PM UTC NELLA Briggs [id number] on August 27, 2025 6:13:00 PM UTC Discont inued 1251616 0040 9710 167 sodium chloride 0.9% SOLN 100.0 ML INTRAV ENOUS ONE TIME ADMINISTRA TION (UNSCHEDUL ED) 110.0 ML/HR Start: 2024 1:00:0 0 PM UTC End: 2024 6:13:1 1 PM UTC NELLA Briggs [id number] on August 27, 2025 6:13:00 PM [place] SOCIAL HISTORY SOCIAL HISTORY - Smoking Status SNOMED-CT Social History Element Description Effective Dates Offered Cessation Comment Updated By [id number] Historical Tobacco smoking status Never Smoked [id number] on July 15, 2025 4:38:46 PM [place] [id number] Historical Tobacco smoking status Unknown If Ever Smoked [id number] on February 05, 2025 4:56:06 AM [facility] SOCIAL HISTORY - Gender Sex: Male SOCIAL HISTORY - Status : status i nformation is not available Intention in Next Year: intention information is not available SOCIAL HISTORY - Assessments Code System Description Status Date Value of Assessment Updated By Comment Assessment Information is no t available SOCIAL HISTORY - [place]ilkoot Affiliation [place]koot information is not av ailable SOCIAL HISTORY [...] for each vital sign as of August 29, 2025 2:55:06 PM [place] Loinc Code Vital Sign Activity Date Result Updated By 8310-5 Body temperature August 27 6:03:00 PM UTC 98.4 [degF] 8462-4 Diastolic blood pressure Novembe 2024 6:30:00 PM UTC 65.0 mm[Hg] 8867-4 Heart rate August 27 6:30:00 PM UTC 68 /min 99000-0 Oxygen saturation in Arterial blood by Pulse oximetry August 27, 2025 6:03:00 PM UTC 94.0 % 9279-1 Respiratory rate August 27 6:30:00 PM UTC 18 /min 8480-6 Systolic blood pressure August 27, 2025 6:30:00 PM UTC 130.0 mm[Hg] PEDIATRIC GROWTH CHART - VITAL SIGNS [...] Reason for Visit Not Specified Admission August 22, 2025 2:11:[address] [address] Discharge August 27, 2025 7:19:00 PM [facility] DISCHARGED TO HOME OR SELF CARE ENCOUNTER DIAGNOSES Notes information is not dai ilable. Code System Diagnosis Onset Date Diagnosis information is not available. ABSTRACT DIAGNOSES Code System Diagnosis Updated By Abatement Date D50.9 ICD10 IRON DEFICIENCY ANEMIA, UNSPECIFIED [id number] on August 29, 2025 2:54:46 PM [place] K90.9 ICD10 INTESTINAL MALAB SORPTION, UNSPECIFIED [id number] on August 29, 2025 2:54:46 PM [place] R71.0 ICD10 PRECIPITOUS DROP IN HEMATOCR IT [id number] on August 29, 2025 2:54:46 PM [facility] D50.9 ICD10 IRON DEFICIENCY ANEMIA, UNSPECIFIED [id number] on August 29, 2025 2:54:46 PM [place] K90.9 ICD10 INTESTINAL MALAB SORPTION, UNSPECIFIED [id number] on August 29, 2025 2:54:46 PM [facility] Z88.6 ICD10 ALLERGY STATUS T O ANALGESIC AGENT [id number] on August 29, 2025 2:54:46 PM [facility] CARE TEAM Care Packaging Mechanic Role LUIS CARMEN Admitting AGUSTIN WARD Primary Care LUIS CARMEN Primary Attending HOSPITAL DISCHARGE INSTRUCTION DISCHARGE INSTRUCTION Encounter [id number] Admit Date August 22, 2025 2: 11:00 PM [place] Discharge Date August 27, 2025 7: 19:00 PM [facility] PATIENT EDUCATION SUMMARY Patient/Visit Information: Patient Name: BARTOLO GARZA Diag: Attending Caregiver: NELLA Briggs Discharge Instruction Sheets Provided: Blood Transfusion, Adult, Care After Discharge Information Fall Prevention in Hospitals and in the Home [facility] - Medication Management Medication Side Effects Suicide - Managing your Feelings Patient Instructions: Followup Appointments/Instructions: CARE TEAM CARE template worker Role on Team Location Telecom Status Start Date End Aaron e Updated By SYLVIA MEDINA PCP normal July 30, 2025 6:28:59 PM [facility] August 27, 2025 7:19:00 PM [facility] [id number] on July 30, 2025 6:28:59 PM [facility] NELLA MEDINA Attending normal July 30, 2025 6:28:59 PM [facility] August 27, 2025 7:19:00 PM [facility] [id number] on July 30, 2025 6:28:59 PM [facility] NELLA MEDINA Admitting normal July 30, 2025 6:28:59 PM [facility] August 27, 2025 7:19:00 PM [facility] [id number] on July 30, 2025 6:28:59 PM [facility]
--- NOTE | 2025-09-16 02:39 | CT_ITS ---
PROCEDURE INFORMATION: Exam: CT Head Without Contrast Exam date and time: 09/16/2025 2:54 AM Age: 64 years old Clinical indication: Injury or trauma; Additional info: Trauma, critical injury suspected TECHNIQUE: Imaging protocol: Computed tomography of the head without contrast. Radiation optimization: All CT scans at this facility use at least one of these dose optimization techniques: automated exposure control; mA and/or kV adjustment per patient size (includes targeted exams where dose is matched to clinical indication); or iterative reconstruction. COMPARISON: CT ANGIO HEAD 11/22/2024 4:51 AM FINDINGS: Brain: Normal. No hemorrhage. Age appropriate white matter. No mass effect. No focal mass. The sanchez-white matter junction is intact. Cerebral ventricles: No ventriculomegaly. Paranasal sinuses: Visualized sinuses are unremarkable. No fluid levels. Mastoid air cells: Visualized mastoid air cells are well aerated. Bones: Unremarkable. No acute fracture. Soft tissues: Unremarkable. IMPRESSION: Unremarkable noncontrast examination of brain. There is no hemorrhage or mass. There is no large infarction seen.
--- NOTE | 2025-09-16 02:39 | CT_ITS ---
PROCEDURE INFORMATION: Exam: CTA Abdomen and Pelvis With Contrast Exam date and time: 09/16/2025 3:04 AM Age: 64 years old Clinical indication: Injury or trauma; Additional info: Fall onto left flank, abd/chest wall pain TECHNIQUE: Imaging protocol: Computed tomographic angiography of the abdomen and pelvis with contrast. Exam focused on the arteries. 3D rendering (Not supervised by radiologist): MIP and/or 3D reconstructed images were created by the technologist. Radiation optimization: All CT scans at this facility use at least one of these dose optimization techniques: automated exposure control; mA and/or kV adjustment per patient size (includes targeted exams where dose is matched to clinical indication); or iterative reconstruction. Contrast material: ISOVUE; Contrast volume: 80 ml; Contrast route: INTRAVENOUS (IV); COMPARISON: CT ANGIO ABD/PEL - GI BLEED 01/15/2025 1:28 AM FINDINGS: Aorta: No abdominal aortic aneurysm. No dissection. No rupture.. Celiac and mesenteric arteries: No occlusion or significant stenosis. Renal arteries: No occlusion or significant stenosis. Right iliac arteries: No occlusion or significant stenosis. Left iliac arteries: No occlusion or significant stenosis. Liver: No liver laceration. The liver demonstrates a nodular surface. It is otherwise unremarkable. There is no focal mass present. Gallbladder and biliary ducts: There are postsurgical changes from a cholecystectomy. Pancreas: No pancreatic ductal dilation. No pancreatic laceration. Spleen: No splenic laceration. Enlargement of the spleen measuring 19 cm in length. Adrenal glands: Normal. No mass. No laceration. Kidneys and ureters: No hydronephrosis. No renal laceration. Stomach and bowel: Unremarkable. No obstruction. No mucosal thickening. Appendix: No evidence of appendicitis. Intraperitoneal space: Unremarkable. No free air. No significant fluid collection. Lymph nodes: Unremarkable. No enlarged lymph nodes. Urinary bladder: Unremarkable. No mass. Reproductive: Unremarkable as visualized. Bones/joints: No acute fracture. No dislocation. Soft tissues: Unremarkable. IMPRESSION: 1. No significant traumatic injury to the abdomen or pelvis. 2. Moderate to severe splenomegaly. 3. Cirrhotic liver.
--- NOTE | 2025-09-16 02:39 | CT_ITS ---
PROCEDURE INFORMATION: Exam: CT Thoracic Spine Without Contrast Exam date and time: 09/16/2025 2:58 AM Age: 64 years old Clinical indication: Injury or trauma; Additional info: Trauma, critical injury suspected TECHNIQUE: Imaging protocol: Computed tomography of the thoracic spine without contrast. Radiation optimization: All CT scans at this facility use at least one of these dose optimization techniques: automated exposure control; mA and/or kV adjustment per patient size (includes targeted exams where dose is matched to clinical indication); or iterative reconstruction. COMPARISON: CT THORACIC SPINE WO CON 11/22/2024 4:45 AM FINDINGS: Bones/joints: No acute fracture. Normal alignment. No significant disc bulge or herniation. No severe spinal canal stenosis. No significant neural foraminal narrowing. Soft tissues: Unremarkable. IMPRESSION: There is no significant traumatic injury of the thoracic spine.
--- NOTE | 2025-09-16 02:39 | CT_ITS ---
PROCEDURE INFORMATION: Exam: CT Lumbar Spine Without Contrast Exam date and time: 09/16/2025 3:01 AM Age: 64 years old Clinical indication: Injury or trauma; Additional info: Trauma, critical injury suspected TECHNIQUE: Imaging protocol: Computed tomography of the lumbar spine without contrast. Radiation optimization: All CT scans at this facility use at least one of these dose optimization techniques: automated exposure control; mA and/or kV adjustment per patient size (includes targeted exams where dose is matched to clinical indication); or iterative reconstruction. COMPARISON: MR LUMBAR SPINE WO CON 12/06/2024 2:48 PM FINDINGS: Bones/joints: No acute fracture. Normal height. Age appropriate alignment. No significant degenerative process. Soft tissues: Unremarkable. IMPRESSION: There is no significant traumatic injury of the lumbar spine.
--- NOTE | 2025-09-16 02:39 | CT_ITS ---
PROCEDURE INFORMATION: Exam: CTA Chest With Contrast Exam date and time: 09/16/2025 3:04 AM Age: 64 years old Clinical indication: Injury or trauma; Additional info: Fall onto left flank, abd/chest wall pain TECHNIQUE: Imaging protocol: Computed tomographic angiography of the chest with contrast. Exam focused on the arteries. 3D rendering (Not supervised by radiologist): MIP and/or 3D reconstructed images were created by the technologist. Radiation optimization: All CT scans at this facility use at least one of these dose optimization techniques: automated exposure control; mA and/or kV adjustment per patient size (includes targeted exams where dose is matched to clinical indication); or iterative reconstruction. Contrast material: ISOVUE; Contrast volume: 80 ml; Contrast route: INTRAVENOUS (IV); COMPARISON: CT ANGIO CHEST 11/22/2024 4:54 AM FINDINGS: Pulmonary arteries: Normal. No pulmonary emboli. Aorta: Unremarkable. No aortic aneurysm. No aortic dissection. Lungs: Unremarkable. No consolidation. No masses. Pleural spaces: Unremarkable. No pneumothorax. No pleural effusion. Heart: Unremarkable. No cardiomegaly. No pericardial effusion. Mediastinal space: There no mediastinal hematoma. Lymph nodes: Unremarkable. No enlarged lymph nodes. Bones/joints: No acute fracture. Soft tissues: Unremarkable. IMPRESSION: 1. There is no significant traumatic injury seen. 2. No acute cardiac or pulmonary process.
--- NOTE | 2025-09-16 02:39 | CT_ITS ---
PROCEDURE INFORMATION: Exam: CT Cervical Spine Without Contrast Exam date and time: 09/16/2025 2:56 AM Age: 64 years old Clinical indication: Injury or trauma; Additional info: Trauma, critical injury suspected TECHNIQUE: Imaging protocol: Computed tomography of the cervical spine without contrast. Radiation optimization: All CT scans at this facility use at least one of these dose optimization techniques: automated exposure control; mA and/or kV adjustment per patient size (includes targeted exams where dose is matched to clinical indication); or iterative reconstruction. COMPARISON: CT CERVICAL SPINE WO CON 11/22/2024 4:42 AM FINDINGS: Bones: The vertebral bodies are normal height. No cervical fracture. No evidence for ligamentous injury. The atlanto dens interval is intact. No dens fracture. No significant central canal stenosis. There are moderate diffuse degenerative changes. Lungs: Lung apices are normal. Soft tissues: No abnormality of the prevertebral soft tissues. IMPRESSION: 1. No evidence for significant traumatic injury to the cervical spine. 2. Moderate degenerative changes.
[2025-09-16 02:40] VITALS: BP 143/73; PULSE 89; RESP 17; TEMP 37.2; O2SAT 95; BMI 38.9
--- OUTSIDE RECORDS SUMMARY | 2025-09-16 02:46 | XMS_ITS | Encounter Summary ---
Author Organization Healthcare Address [address] [place] [address] Care Team Providers Care Men'S Leather Dress Belt Maker Name Role Phone López Alicea MD Primary Care Provider [phone] Teresita Garcia LPN Unavailable Unavailabl e Slade Lennon Unavailable Teresita Garcia LPN Unavailable Unavailabl e Encounter Details Date Type Department Care Team (Late st Contact Info) Description 12/20/2024 Orders Only External Location [address] [place] [address] Provider, External Social History Tobacco Use Types [...] as of this encounter Plan of Treatment Not on file documented as of this encounter Procedures Procedure [...] on filedocumented in this encounter Care Teams Men'S Leather Dress Belt Maker Relationship Specialty Start Date End Date López Alicea MD [address] [place] [id number] PCP - General 02/24/25 Teresita Garcia LPN [facility] None TCM Nurse 03/04/25 04/03/25 Slade Lennon PA [address] [place] [address] Referring Physician Gastroenterology 03/19/25 Teresita Garcia LPN [facility] None TCM Nurse 04/28/25 05/28/25 documented as of this encounter
--- OUTSIDE RECORDS SUMMARY | 2025-09-16 02:46 | XMS_ITS | Encounter Summary ---
Author Organization Healthcare Address [address] [place] [address] Care Team Providers Care Video Editing Internship Name Role Phone López Alicea MD Primary Care Provider [phone] Teresita Garcia LPN Unavailable Unavailabl e Slade Lennon Unavailable Teresita Garcia LPN Unavailable Unavailabl e Encounter Details Date Type Department Care Team (Late st Contact Info) Description 01/14/2025 Orders Only External Location [address] [place] [address] Provider, External Social History Tobacco Use Types [...] Computed Tomogra phy 01/14/2025 6:02 PM EDT us External Provider IMG CT PROCEDURES Final Result documented in this encounter Visit Diagnoses Not on filedocumented in this encounter Care Teams Video Editing Internship Relationship Specialty Start Date End Date López Alicea MD [address] [place] [address] PCP - General 02/24/25 Teresita Garcia LPN [facility] None TCM Nurse 03/04/25 04/03/25 Slade Lennon PA [facility] [place] [address] Referring Physician Gastroenterology 03/19/25 Teresita Garcia LPN [facility] None TCM Nurse 04/28/25 05/28/25 documented as of this encounter
--- OUTSIDE RECORDS SUMMARY | 2025-09-16 02:46 | XMS_ITS | Encounter Summary ---
Author Organization Healthcare Address [address] [place] [address] Care Team Providers Care Requirements Engineer Name Role Phone López Alicea MD Primary Care Provider [phone] Teresita Garcia LPN Unavailable Unavailabl e Slade Lennon Unavailable Teresita Garcia LPN Unavailable Unavailabl e Encounter Details Date Type Department Care Team (Late st Contact Info) Description 01/09/2025 Orders Only External Location [address] [place] [address] Provider, External Social History Tobacco Use Types [...] on filedocumented in this encounter Care Teams Requirements Engineer Relationship Specialty Start Date End Date López Alicea MD [address] [place] [id number] PCP - General 02/24/25 Teresita Garcia LPN [facility] None TCM Nurse 03/04/25 04/03/25 Slade Lennon PA [address] [place] [address] Referring Physician Gastroenterology 03/19/25 Teresita Garcia LPN [facility] None TCM Nurse 04/28/25 05/28/25 documented as of this encounter
--- OUTSIDE RECORDS SUMMARY | 2025-09-16 02:46 | XMS_ITS | Encounter Summary ---
Author Organization Healthcare Address [address] [place] [address] Care Team Providers Care Inspector And Sorter Name Role Phone López Alicea MD Primary Care Provider [phone] Teresita Garcia LPN Unavailable Unavailabl e Slade Lennon Unavailable Teresita Garcia LPN Unavailable Unavailabl e Encounter Details Date Type Department Care Team (Late st Contact Info) Description 02/05/2025 Orders Only External Location [address] [place] [address] Provider, External Social History Tobacco Use Types [...] Lori ging 02/05/2025 12:5 2 AM EDT us External Provider IMG XR PROCEDURES Final Result documented in this encounter Visit Diagnoses Not on filedocumented in this encounter Care Teams Inspector And Sorter Relationship Specialty Start Date End Date López Alicea MD [address] [place] [id number] PCP - General 02/24/25 Teresita Garcia LPN [facility] None TCM Nurse 03/04/25 04/03/25 Slade Lennon PA [address] [place] [address] Referring Physician Gastroenterology 03/19/25 Teresita Garcia LPN [facility] None TCM Nurse 04/28/25 05/28/25 documented as of this encounter
--- OUTSIDE RECORDS SUMMARY | 2025-09-16 02:46 | XMS_ITS | Clinical Summary ---
Author Organization [facility] Address [address] [place] [address] Care Team Providers Care Product Engineer Name Role Phone López lAicea MD Primary Care Provider [phone] Slade Lennon Unavailable Allergies No known active [...] 3 times a day. 180 capsule 1 Active spironolactone (Aldactone) 50 MG tablet Take 1 tablet by mouth daily. 30 each 1 Active amLODIPine (Norvasc) 10 MG tablet Take 1 tablet by mouth daily. Active oxyCODONE-aceta minophen (Percocet) 10-325 MG tablet 1 tablet every 8 hours as needed for severe pain. Active furosemide (Lasix) 20 MG tablet Take 1 tablet by mouth daily. 30 tablet 1 Active ferrous sulfate 325 (65 Fe) MG tablet Take 1 tablet by mouth 3 times a day with meals for 60 days, THEN 1 tablet daily with breakfast. 240 tablet 08/25/20 Active Problems Problem Noted Date Diagnosed Date Gastrointestinal hemorrhage with melena 04/26/20 Other specified anemias 04/25/2025 GIB (gastrointestinal bleeding) 04/25/2025 Other cirrhosis of liver 04/25/2025 Right foot pain 04/25/2025 Generalized edema 04/25/2025 Class III obesity with body mass index (BMI) of 40.0 or higher 02/27/2025 Tremor 02/25/2025 GI bleed 02/25/2025 Falls frequently 02/25/2025 Gout Obesity Hypertension Depression Generalized anxiety disorder Overview (02/25/2025): Anxiety, generalized BPH (benign prostatic hyperplasia) Resolved Problems Problem Noted Date Diagnosed Date Resolved Date Fall at home, initial encounter 02/24/2025 08/31/2025 Family History Medical History Relation Name Comments [...] any time in the past 12 m [facility], were you homeless or living [...] 04/25/2025 1:26 PM EDT Plan of Treatment Health Maintenance Due Date Last Done Comments [facility]-Infant/Child/Adol SDOH Screenings 1961 Diabetes: Dental Exam 12/28/1971 [facility]-Hepatitis A Vaccines (1 of 2 - Risk 2-dose series) 1980 [facility]-Pneumococcal Vaccine: 50+ Years (1 of 2 - PCV) 1980 [facility]-Zoster Vaccines (1 of 2) 1980 CT Colonography 2006 Colonoscopy 2006 FIT-DNA 2006 FIT 2006 FOBT 2006 Sigmoidoscopy 2006 [facility]-Colorectal Cancer Screening 2006 [facility]-RSV Vaccine: 60+ Years or (1 - Risk 50-74 years 1-dose series) 12/28/2011 [facility]-Medicare Annual Wellness (AWV) 10/07/2023 10/07/2022, 09/03/2021, 08/17/2020 [facility]-Diabetes: Hemoglobin A1C 10/27/2024, 05/09/2023, 06/02/2022, Additional history exists [id number] Vaccine ( season) 2025 08/02/2022, 09/03/2021, 02/08/2021 [facility]-Influenza Vaccine (#1) 06/02/202507/30, 08/02/2022, 07/25/2022, Additional history exists [facility]- SDOH Screenings 08/30/2025 [facility]-Adult SDOH Screenings 08/30/2025 02/27/2025 [facility]-Depression Screening 04/25/2026 04/25/2025, 04/02 [facility]-DTaP,Tdap,and Td Vaccines (3 - Td or Tdap) 10/17/2034 10/17/2024, 10/25/2014 [facility]-HIV Screening Completed 02/24/2025, 09/30/2024 [facility]-Hepatitis C Screening Completed 2024, 02/24/2025, 03/03/2015 [facility]-Obesity Intervention Completed 025, 04/25/2025, 02/24/2025, Additional history exists HPV Vaccines (No Doses Required) Completed [facility]-HIB Vaccines Aged Out No longer e [...] Care Plan Autogenerated Problem No Angelina Lorenzo, instructional aide Procedure Name Priority Date/Time Associated Diagnosis Comments HEPATITIS C ANTIBODY W/REFLEX TO HCV QUANT PCR Routine 04/25/2025 7:06 AM EDT End-stage liver disease (CMS/HCC) ED HIV 1/2 ANTIBODY/ANTIGEN SCREEN WITH REFLEX TO HIV I/II DIFFERENTIATION STAT 02/24/2025 6:44 PM EDT from Last 3 Months or Most Recently Relevant to Health Maintenance Results * Hepatitis C Antibody (04/25/2025 7:06 AM EDT) Hepatitis C Antibody Negative Negative 04/25/2025 8:02 AM EDT [facility] Blood Venous blood specimen / Unknown Venipuncture / Unknown 04/25/2025 7:06 AM EDT 04/25/2025 7:21 AM EDT us Norman Rodney MD LAB BLOOD ORDERABLES Final Resul t [facility] [address] [place] [address] * ED HIV 1/2 Antibody/Antigen Screen w/Reflex to HIV 1/2 Differentiation (02/24/2025 6:44 PM EDT) HIV 1 & 2 Antibody/Antigen Screen Non Reactive Non Reactive 02/24/2025 7:37 PM EDT [facility] Comment:Screening for HIV 1 & 2 antibodies, and P24 antigen is NONREACTIVE. No confirmatory testing is required. Blood Venous blood specimen / Unknown Venipuncture / Unknown 02/24/2025 6:44 PM EDT 02/24/2025 6:56 PM EDT us Lukas Moreira MD LAB BLOOD ORDERABLES Final Res ult [facility] [address] [place] [address] from Last 3 Months or Most Recently Relevant to Health Maintenance Additional Health Concerns Active Problems Noted Date Diagnosed Date Autogenerated Problem 02/26/2025 Autogenerated Problem 04/25/2025 Insurance [place] [employer] [place] [employer] Advance Directives * Full [...] updated to appropriate status: Yes Care Teams Product Engineer Relationship Specialty Start Date End Date López Alicea MD [facility] [place] [address] PCP - General 02/24/25 Slade Lennon PA [address] [place] [address] Referring Physician Gastroenterology 03/19/25
--- OUTSIDE RECORDS SUMMARY | 2025-09-16 02:46 | XMS_ITS | Encounter Summary ---
Author Organization Healthcare Address [address] [place] [address] Care Team Providers Care Barn Hand Name Role Phone López Alicea MD Primary Care Provider [phone] Teresita Garcia LPN Unavailable Unavailabl e Slade Lennon Unavailable Teresita Garcia LPN Unavailable Unavailabl e Encounter Details Date Type Department Care Team (Late st Contact Info) Description 11/01/2024 Orders Only External Location [address] [place] [address] Provider, External Social History Tobacco Use Types [...] on filedocumented in this encounter Care Teams Barn Hand Relationship Specialty Start Date End Date López Alicea MD [address] [facility] [address] [place] [id number] PCP - General 02/24/25 Teresita Garcia LPN [facility] None TCM Nurse 03/04/25 04/03/25 Slade Lennon PA [facility] [place] [address] Referring Physician Gastroenterology 03/19/25 Teresita Garcia LPN [facility] None TCM Nurse 04/28/25 05/28/25 documented as of this encounter
--- OUTSIDE RECORDS SUMMARY | 2025-09-16 02:46 | XMS_ITS | Encounter Summary ---
Author Organization Healthcare Address [address] [place] [address] Care Team Providers Care Senior Animal Trainer Name Role Phone López Alicea MD Primary Care Provider [phone] Teresita Garcia LPN Unavailable Unavailabl e Slade Lennon Unavailable Teresita Garcia LPN Unavailable Unavailabl e Encounter Details Date Type Department Care Team (Late st Contact Info) Description 11/22/2024 Orders Only External Location [address] [place] [address] Provider, External Social History Tobacco Use Types [...] on filedocumented in this encounter Care Teams Senior Animal Trainer Relationship Specialty Start Date End Date López Alicea MD [address] [facility] [place] [id number] PCP - General 02/24/[address] [facility] None TCM Nurse 03/04/25 04/03/25 Slade Lennon PA [facility] [place] [address] Referring Physician Gastroenterology 03/19/25 Teresita Garcia LPN [facility] None TCM Nurse 04/28/25 05/28/25 documented as of this encounter
--- OUTSIDE RECORDS SUMMARY | 2025-09-16 02:46 | XMS_ITS | Clinical Summary ---
Author Organization [facility] Address [address] [place] [address] Care Team Providers Care Rust Proofer Name Role Phone López Alicea MD Primary [...] MEALS 60 tablet 2 09/05/20 24 Active sucralfate (CARAFATE) 1 GM/10ML suspension Active [...] Chronic pain syndrome Call 911. Don't prime. [place] in 1 nostril for overdose. Repeat in [...] once daily 100 each 03/10/20 25 Active hydrOXYzine pamoate (VISTARIL) 50 MG [...] DAY NEEDED FOR MUSCLE SPASMS 40 tablet 05/12/20 25 Active amLODIPine (NORVASC) 10 MG tablet TAKE ONE TABLET BY MOUTH ONCE A DAY 30 tablet 05/22/20 25 Active colchicine 0.6 MG tabletIndications :Idiopathic gout, unspecified chronicity, unspecified site TAKE ONE TABLET BY MOUTH ONCE A DAY 30 tablet 05/22/20 25 Active busPIRone (BUSPAR) 10 MG tabletIndications :Anxiety TAKE TWO TABLETS BY MOUTH 2 TIMES A DAY 120 tablet 05/22/20 25 Active allopurinol (ZYLOPRIM) 300 MG tabletIndications :Idiopathic gout, unspecified chronicity, unspecified site TAKE ONE TABLET BY MOUTH EVERY DAY 30 tablet 05/22/20 25 Active sertraline (ZOLOFT) 100 MG tabletIndications :Dysthymia TAKE TWO TABLETS BY MOUTH ONCE A DAY 60 tablet 05/22/20 25 Active potassium chloride 10 MEQ CR tabletIndications :Potassium deficiency TAKE 2 TABLETS BY MOUTH EVERY MORNING AND TAKE 1 TABLET EVERY EVENING 90 tablet 1 05/22/20 25 Active furosemide (LASIX) 20 MG tablet TAKE 1 TABLET BY MOUTH ONCE A DAY 30 tablet 2 06/23/20 25 Active spironolactone (ALDACTONE) 50 MG tablet TAKE 1 TABLET BY MOUTH ONCE A DAY 30 tablet 2 06/23/20 25 Active pantoprazole (PROTONIX) 40 MG EC tabletIndications :Gastroesophageal reflux disease with esophagitis TAKE ONE TABLET BY MOUTH ONCE A DAY 30 tablet 5 07/15/20 25 Active tamsulosin (FLOMAX) 0.4 MG capsule 24 hr capsuleIndication s:Benign prostatic hyperplasia (BPH) with straining on urination TAKE ONE CAPSULE BY MOUTH EVERY NIGHT 30 capsule 5 08/06/20 25 Active OLANZapine (zyPREXA) 5 MG tabletIndications :Visual hallucination,Reji or depressive disorder, recurrent episode, moderate degree TAKE ONE TABLET BY MOUTH AT BEDTIME 30 tablet 5 08/06/20 25 Active buPROPion SR (WELLBUTRIN SR) 150 MG 12 hr tabletIndications :Major depressive disorder, recurrent episode, moderate degree Take 1 tablet by mouth 3 times a day. 90 tablet 2 08/01/20 25 Active gabapentin (NEURONTIN) 800 MG tabletIndications :Chronic pain syndrome,Degenera tion of intervertebral disc of lumbar region TAKE 1 TABLET BY MOUTH 3 TIMES A DAY 90 tablet 1 08/19/20 25 Active oxyCODONE ER (OxyCONTIN) 40 MG 12 hr tabletIndications :Chronic pain syndrome,Degenera tion of intervertebral disc of lumbar region Take 1 tablet by mouth Every 12 (Twelve) Hours. 60 tablet 09/02/20 25 Active oxyCODONE (ROXICODONE) 15 MG immediate release tabletIndications :Chronic pain syndrome,Degenera tion of intervertebral disc of lumbar region,Degenerati on of intervertebral disc of lumbar region with discogenic back pain and lower extremity pain Take 1 tablet by mouth Every 8 (Eight) Hours As Needed for Moderate Pain. 90 tablet 09/02/20 25 Active gabapentin (NEURONTIN) 800 MG tabletIndications :Chronic pain syndrome,Degenera tion of intervertebral disc of lumbar region TAKE 1 TABLET BY MOUTH 3 TIMES A DAY 90 tablet 1 06/25/20 25 025 Discontinued oxyCODONE (ROXICODONE) 15 MG immediate release tabletIndications :Chronic pain syndrome,Degenera tion of intervertebral disc of lumbar region with discogenic back pain and lower extremity pain,Degeneration of intervertebral disc of lumbar region Take 1 tablet by mouth Every 8 (Eight) Hours As Needed for Moderate Pain. 90 tablet 08/01/20 25 025 Discontinued(R eorder) oxyCODONE ER (OxyCONTIN) 40 MG 12 hr tabletIndications :Chronic pain syndrome,Degenera tion of intervertebral disc of lumbar region Take 1 tablet by mouth Every 12 (Twelve) Hours. 60 tablet 08/01/20 25 025 Discontinued(R eorder) Active Problems Problem Noted Date Diagnosed Date Chronic liver failure without hepatic coma 08/01 Secondary esophageal varices with bleeding 08/01 Bilateral leg weakness 02/11/2025 Assessment & Plan [...] Encounters Date Type Department Care Team Description 09/02/2025 Telephone [facility] [address] [place] [address] López Alicea MD Med Refill 08/19/2025 Refill [facility] [address] [address] López Alicea MD Chronic pain syndrome; Degeneration of intervertebral disc of lumbar region 08/01/2025 2:30 PM EDT Office Visit [facility] [address] [address] López Alicea MD Need for influenza vaccination (Primary Dx); Secondary esophageal varices with bleeding; Iron deficiency anemia due to chronic blood loss; Chronic pain syndrome; Degeneration of intervertebral disc of lumbar region with discogenic back pain and lower extremity pain; Degeneration of intervertebral disc of lumbar region; Chronic liver failure without hepatic coma; Major depressive disorder, recurrent episode, moderate degree 08/01/2025 Travel 07/22/2025 Refill [facility] [address] [facility] [place] [address] López Alicea MD Benign prostatic hyperplasia (BPH) with straining on urination; Visual hallucination; Major depressive disorder, recurrent episode, moderate degree 07/15/2025 Refill [facility] [address] [place] [address] López Alicea MD Gastroesophageal reflux disease with esophagitis 07/08/2025 Telephone [facility] [address] [facility] [place] [place] [address] López Alicea MD Med Refill 06/25/2025 Refill [facility] [address] [place] [address] López Alicea MD Chronic pain syndrome; Degeneration of intervertebral disc of lumbar region 06/23/2025 Refill [facility] [address] [facility] [place] [address] López Alicea MD from Last 3 Months Immunizations Immunization Administration Dates Next Due -influenza Vac Quardvalent Preservativ 08/02/2019 COVID-19 (TIFFANIE) 09/03/2021,02/08/2021 COVID-19 ([employer]) BIVALENT 12+YRS 08/12/2021 Fluzone >6mos 08/01/2025,,07/21/2017,2012 Fluzone (or Fluarix & Flulav al for [...] Mass Index 33.86 08/01/2025 1:59 PM EDT Plan of Treatment Upcoming Encounters Date Type Department Care Team (Late st Contact Info) Description 11/06/2025 2:30 PM EST Office Visit [facility] [address] [place] [place] [address] López Alicea MD [address] [address] Health Maintenance Due Date Last Done [...] 10/07/2022 , 09/03/2021, 08/17/2020, Additional history exists HEMOGLOBIN A1C 10/30/2024 04/29/2024, 08/0 05/2023, 06/02/2022, Additional history exists COLONOSCOPY 07/24/2025 07/24/2015, 06/0 05/2015, 10/02/2014 COLORECTAL CANCER SCREENING 07/24/2025 TDAP/TD VACCINES (3 - Td or Tdap) 10/17/2034 025, 10/25/2014 Hepatitis B Completed 12/21/2015, 2 10/2014, 02/17/2015 HEPATITIS C SCREENING Completed 04/25/2025 , 04/25/2025, 02/24/2025, Additional history exists INFLUENZA VACCINE Completed 08/01/2025, , 08/02/2022, Additional history exists Procedures Procedure Name Priority Date/Time Associated Diagnosis Comments HEMOGLOBIN A1C Routine 04/29/2024 12:45 PM EDT Type 2 diabetes mellitus without complication, without long-term current use of insulin from Last 3 Months or Most Recently Relevant to Health Maintenance Results * (ABNORMAL) Hemoglobin A1c (04/29/2024 12:45 PM EDT) Hemoglobin A1C 4.6(L) 4.8 - 5.6 % [facility] Comment: Prediabetes: 5.7 - 6.4 Diabetes: >6.4 Glycemic control for adults with diabetes: <7.0 Blood 04/29/2024 12:4 5 PM EDT 04/29/2024 Narrative [facility]) - 04/30/2024 8:18 AM EDT Performed at: - [facility] [address] [place], [place] [id number] Educational Administration Teacher: David Mcduffie PhD, Phone: [phone] Patient Fasting: Y us López Alicea MD LAB BLOOD ORDERABLES Final Resu lt [facility] [address] [place] [address], [place] [phone] [facility] [address] [place] [address], from Last 3 Months or Most Recently Relevant to Health Maintenance Insurance MEDICAID [facility]IC[facility] Directives Documents on File Type Date Recorded Patient Appliance Technician Expl anation LIVING WILL - SCAN 03/04/2022 12:[address] OF 06/25/19 Care Teams Rust Proofer Relationship Specialty Start Date End Date López Alicea MD [address] [facility] [place] [address] PCP - General 07/16/15
--- OUTSIDE RECORDS SUMMARY | 2025-09-16 02:46 | XMS_ITS | Encounter Summary ---
Author Organization Healthcare Address [address] [place] [address] Care Team Providers Care Drawing Checker Name Role Phone López Alicea MD Primary Care Provider [phone] Teresita Garcia LPN Unavailable Unavailabl e Slade Lennon Unavailable Teresita Garcia LPN Unavailable Unavailabl e Encounter Details Date Type Department Care Team (Late st Contact Info) Description 11/22/2024 Orders Only External Location [address] [place] [address] Provider, External Social History Tobacco Use Types [...] on filedocumented in this encounter Care Teams Drawing Checker Relationship Specialty Start Date End Date López Alicea MD [address] [facility] [address] [place] [id number] PCP - General 02/24/25 Teresita Garcia LPN [facility] None TCM Nurse 03/04/25 04/03/25 Slade Lennon PA [facility] [place] [address] Referring Physician Gastroenterology 03/19/25 Teresita Garcia LPN [facility] None TCM Nurse 04/28/25 05/28/25 documented as of this encounter
--- OUTSIDE RECORDS SUMMARY | 2025-09-16 02:46 | XMS_ITS | Encounter Summary ---
Author Organization Healthcare Address [address] [place] [address] Care Team Providers Care Faith Doctor Name Role Phone López Alicea MD Primary Care Provider [phone] Teresita Garcia LPN Unavailable Unavailabl e Slade Lennon Unavailable Teresita Garcia LPN Unavailable Unavailabl e Encounter Details Date Type Department Care Team (Late st Contact Info) Description 11/22/2024 Orders Only External Location [address] [place] [address] Provider, External Social History Tobacco Use Types [...] on filedocumented in this encounter Care Teams Faith Doctor Relationship Specialty Start Date End Date López Alicea MD [address] [facility] [address] [place] [phone] PCP - General 02/24/25 Teresita Garcia LPN [facility] None TCM Nurse 03/04/25 04/03/25 Slade Lennon PA [facility] [place] [address] Referring Physician Gastroenterology 03/19/25 Teresita Garcia LPN [facility] None TCM Nurse 04/28/25 05/28/25 documented as of this encounter
--- OUTSIDE RECORDS SUMMARY | 2025-09-16 02:46 | XMS_ITS | Encounter Summary ---
Author Organization Healthcare Address [address] [place] [address] Care Team Providers Care Business Systems Lead Name Role Phone López Alicea MD Primary Care Provider [phone] Teresita Garcia LPN Unavailable Unavailabl e Slade Lennon Unavailable Teresita Garcia LPN Unavailable Unavailabl e Encounter Details Date Type Department Care Team (Late st Contact Info) Description 11/01/2024 Orders Only External Location [address] [place] [address] Jerel Stephenson PA [address] [place] [address] Social History Tobacco Use Types [...] filedocumented in this encounter Care Teams Business Systems Lead Relationship Specialty Start Date End Date López Alicea MD [address] [place] [address] PCP - General 02/24/25 Teresita Garcia LPN [facility] None TCM Nurse 03/04/25 04/03/25 Slade eLnnon PA [address] [place] [address] Referring Physician Gastroenterology 03/19/25 Teresita Garcia LPN [facility] None TCM Nurse 04/28/25 05/28/25 documented as of this encounter
--- OUTSIDE RECORDS SUMMARY | 2025-09-16 02:46 | XMS_ITS | Encounter Summary ---
Author Organization Healthcare Address [address] [place] [address] Care Team Providers Care Burn Crew Member Name Role Phone López Alicea MD Primary Care Provider [phone] Teresita Garcia LPN Unavailable Unavailabl e Slade Lennon Unavailable Teresita Garcia LPN Unavailable Unavailabl e Encounter Details Date Type Department Care Team (Late st Contact Info) Description 11/01/2024 Orders Only External Location [address] [place] [address] Provider, External Social History Tobacco Use Types [...] on filedocumented in this encounter Care Teams Burn Crew Member Relationship Specialty Start Date End Date López Alicea MD [address] [place] [address] PCP - General 02/24/25 Teresita Garcia LPN [facility] None TCM Nurse 03/04/25 04/03/25 Slade Lennon PA [facility] [place] [address] Referring Physician Gastroenterology 03/19/25 Teresita Garcia LPN [facility] None TCM Nurse 04/28/25 05/28/25 documented as of this encounter
--- OUTSIDE RECORDS SUMMARY | 2025-09-16 02:46 | XMS_ITS | Encounter Summary ---
Author Organization Healthcare Address [address] [place] [address] Care Team Providers Care Police Patrol Lieutenant Name Role Phone López Alicea MD Primary Care Provider [phone] Teresita Garcia LPN Unavailable Unavailabl e Slade Lennon Unavailable Teresita Garcia LPN Unavailable Unavailabl e Encounter Details Date Type Department Care Team (Late st Contact Info) Description 11/22/2024 Orders Only External Location [address] [place] [address] Provider, External Social History Tobacco Use Types [...] on filedocumented in this encounter Care Teams Police Patrol Lieutenant Relationship Specialty Start Date End Date López Alicea MD [address] [facility] [place] [id number] PCP - General 02/24/25 Teresita Garcia LPN [facility] None TCM Nurse 03/04/25 04/03/25 Slade Lennon PA [facility]8 [place] [address] Referring Physician Gastroenterology 03/19/25 Teresita Garcia LPN [facility] None TCM Nurse 04/28/25 05/28/25 documented as of this encounter
--- OUTSIDE RECORDS SUMMARY | 2025-09-16 02:46 | XMS_ITS | Encounter Summary ---
Author Organization Healthcare Address [address] [place] [address] Care Team Providers Care Cashiers Supervisor Name Role Phone López Alicea MD Primary Care Provider [phone] Teresita Garcia LPN Unavailable Unavailabl e Slade Lennon Unavailable Teresita Garcia LPN Unavailable Unavailabl e Encounter Details Date Type Department Care Team (Late st Contact Info) Description 02/05/2025 Orders Only External Location [address] [place] [address] Provider, External Social History Tobacco Use Types [...] Computed Tomogra phy 02/05/2025 1:09 AM EDT us External Provider IMG CT PROCEDURES Final Result documented in this encounter Visit Diagnoses Not on filedocumented in this encounter Care Teams Cashiers Supervisor Relationship Specialty Start Date End Date López Alicea MD [address] [place] [id number] PCP - General 02/24/[address] [facility] None TCM Nurse 03/04/25 04/03/25 Slade Lennon PA [address] [place] [address] Referring Physician Gastroenterology 03/19/[address] [facility] None TCM Nurse 04/28/25 05/28/25 documented as of this encounter
--- OUTSIDE RECORDS SUMMARY | 2025-09-16 02:46 | XMS_ITS | Encounter Summary ---
Author Organization Healthcare Address [address] [place] [address] Care Team Providers Care Pals Nurse Name Role Phone López Alicea MD Primary Care Provider [phone] Teresita Garcia LPN Unavailable Unavailabl e Slade Lennon Unavailable Teresita Garcia LPN Unavailable Unavailabl e Encounter Details Date Type Department Care Team (Late st Contact Info) Description 11/22/2024 Orders Only External Location [address] [place] [address] Provider, External Social History Tobacco Use Types [...] on filedocumented in this encounter Care Teams Pals Nurse Relationship Specialty Start Date End Date López Alicea MD [address] [facility] [place] [id number] PCP - General 02/24/25 Teresita Garcia LPN [facility] None TCM Nurse 03/04/25 04/03/25 Slade Lennon PA [facility] [place] [address] Referring Physician Gastroenterology 03/19/25 Teresita Garcia LPN [facility] None TCM Nurse 04/28/25 05/28/25 documented as of this encounter
--- OUTSIDE RECORDS SUMMARY | 2025-09-16 02:46 | XMS_ITS | Encounter Summary ---
Author Organization Healthcare Address [address] [place] [address] Care Team Providers Care Tape Making Machine Operator Name Role Phone López Alicea MD Primary Care Provider [phone] Teresita Garcia LPN Unavailable Unavailabl e Slade Lennon Unavailable Teresita Garcia LPN Unavailable Unavailabl e Encounter Details Date Type Department Care Team (Late st Contact Info) Description 11/22/2024 Orders Only External Location [address] [place] [address] Provider, External Social History Tobacco Use Types [...] on filedocumented in this encounter Care Teams Tape Making Machine Operator Relationship Specialty Start Date End Date López Alicea MD [address] [facility] [place] [id number] PCP - General 02/24/25 Teresita Garcia LPN [facility] None TCM Nurse 03/04/25 04/03/25 Slade Lennon PA [facility] [place] [address] Referring Physician Gastroenterology 03/19/25 Teresita Garcia LPN [facility] None TCM Nurse 04/28/25 05/28/25 documented as of this encounter
--- OUTSIDE RECORDS SUMMARY | 2025-09-16 02:46 | XMS_ITS | Encounter Summary ---
Author Organization Healthcare Address [address] [place] [address] Care Team Providers Care Pumper Brewery Name Role Phone López Alicea MD Primary Care Provider [phone] Teresita Garcia LPN Unavailable Unavailabl e Slade Lennon Unavailable Teresita Garcia LPN Unavailable Unavailabl e Encounter Details Date Type Department Care Team (Late st Contact Info) Description 11/22/2024 Orders Only External Location [address] [place] [address] Provider, External Social History Tobacco Use Types [...] on filedocumented in this encounter Care Teams Pumper Brewery Relationship Specialty Start Date End Date López Alicea MD [address] [facility] [place] [phone] PCP - General 02/24/25 Teresita Garcia LPN [facility] None TCM Nurse 03/04/25 04/03/25 Slade Lennon PA [facility] [place] [address] Referring Physician Gastroenterology 03/19/25 Teresita Garcia LPN [facility] None TCM Nurse 04/28/25 05/28/25 documented as of this encounter
--- OUTSIDE RECORDS SUMMARY | 2025-09-16 02:46 | XMS_ITS | Encounter Summary ---
Author Organization Healthcare Address [address] [place] [address] Care Team Providers Care Glass Grinder Name Role Phone López Alicea MD Primary Care Provider [phone] Teresita Garcia LPN Unavailable Unavailabl e Slade Lennon Unavailable Teresita Garcia LPN Unavailable Unavailabl e Encounter Details Date Type Department Care Team (Late st Contact Info) Description 11/22/2024 Orders Only External Location [address] [place] [address] Provider, External Social History Tobacco Use Types [...] on filedocumented in this encounter Care Teams Glass Grinder Relationship Specialty Start Date End Date López Alicea MD 210 [facility] [place] [id number] PCP - General 02/24/25 Teresita Garcia LPN [facility] None TCM Nurse 03/04/25 04/03/25 Slade Lennon PA [facility]8 [place] [address] Referring Physician Gastroenterology 03/19/25 Teresita Garcia LPN [facility] None TCM Nurse 04/28/25 05/28/25 documented as of this encounter
--- OUTSIDE RECORDS SUMMARY | 2025-09-16 02:46 | XMS_ITS | Encounter Summary ---
Author Organization Healthcare Address [address] [place] [address] Care Team Providers Care Calf Skinner Name Role Phone López Alicea MD Primary Care Provider [phone] Teresita Garcia LPN Unavailable Unavailabl e Slade Lennon Unavailable Teresita Garcia LPN Unavailable Unavailabl e Encounter Details Date Type Department Care Team (Late st Contact Info) Description 12/06/2024 Orders Only External Location [address] [place] [address] Provider, External Social History Tobacco Use Types [...] on filedocumented in this encounter Care Teams Calf Skinner Relationship Specialty Start Date End Date López Alicea MD [address] [place] [address] PCP - General 02/24/25 Teresita Garcia LPN [facility] None TCM Nurse 03/04/25 04/03/25 Slade Lennon PA [facility]8 [place] [address] Referring Physician Gastroenterology 03/19/25 Teresita Garcia LPN [facility] None TCM Nurse 04/28/25 05/28/25 documented as of this encounter
--- OUTSIDE RECORDS SUMMARY | 2025-09-16 02:46 | XMS_ITS | Encounter Summary ---
Author Organization Healthcare Address [address] [place] [address] Care Team Providers Care Temporary Office Assistant Name Role Phone López Alicea MD Primary Care Provider [phone] Teresita Garcia LPN Unavailable Unavailabl e Slade Lennon Unavailable Teresita Garcia LPN Unavailable Unavailabl e Encounter Details Date Type Department Care Team (Late st Contact Info) Description 02/05/2025 Orders Only External Location [address] [place] [address] Provider, External Social History Tobacco Use Types [...] Computed Tomogra phy 02/05/2025 1:06 AM EDT us External Provider IMG CT PROCEDURES Final Result documented in this encounter Visit Diagnoses Not on filedocumented in this encounter Care Teams Temporary Office Assistant Relationship Specialty Start Date End Date López Alicea MD [address] [place] [address] PCP - General 02/24/25 Teresita Garcia LPN [facility] None TCM Nurse 03/04/25 04/03/25 Slade Lennon PA [facility]8 [place] [address] Referring Physician Gastroenterology 03/19/25 Teresita Garcia LPN [facility] None TCM Nurse 04/28/25 05/28/25 documented as of this encounter
--- OUTSIDE RECORDS SUMMARY | 2025-09-16 02:47 | XMS_ITS | Clinical Summary ---
Author Organization [facility] Address [address] [place] [address] Care Team Providers Care Administrative Assistant Data Entry Name Role Phone Unknown, Attending Provider Primary [...] therelease of HIV test results or diagnoses. [id number] Allergies No known active allergies Medications [...] Noted Date Diagnosed Date GI bleed 10/02/2024 Social History Tobacco Use Types Packs/Day Years Used Date Smoking Tobacco: Never Smokeless Tobacco: Never Tobacco Cessation:Counseling Given: Not Answered [facility] Utilities Answer Date Recorded In the past 12 months has e Potential, Mobile Fuel, or water Bread threatened to shut off services in your [...] any time in the past 12 m [facility], were you homeless or living in a penitentiary (including now)? No 09/30/2024 Sex and Gender [...] 1961 Diabetes Screening 1961 Hepatitis C Screening (ConsumerBellhart) 1961 Lipid Panel 1961 Depression Screening 12/28/1979 Immunization: Hepatitis A (1 of 2 - Risk 2-dose series) 1980 Immunization: Pneumococcal ( 1 of 2 - PCV) 1980 Cologuard (FIT-DNA) 2006 Colonoscopy 2006 Colorectal Cancer Screening (MyChart) 2006 Stool Testing (gFOBT) 2006 Immunization: RSV (Adult) (1 - Risk 50-74 years 1-dose series) 12/28/2011 Immunization: Zoster (1 of 2) 12/28/2011 Immunization: DTaP/Tdap/Td ( 2 - Td or Tdap) 10/25/2024 10/25/2014 Immunization: COVID-19 ( season) 2025 09/03/2021, 08/12/2021, 02/08/2021 Immunization: Influenza (MyC earl) (#1) 2025 07/30/2024, [...] - 33 mmol/L 10/02/2024 5:05 AM EST [facility] Anion Gap 4 3 - 16 mmol/L 10/02/2024 5:05 AM EST [facility] BUN 20 7 - 25 mg/dL 10/02/2024 5:05 AM EST [facility] Creatinine 1.13 0.60 - 1.30 mg/dL 10/02/2024 5:05 AM EST [facility] Glucose 79 70 - 100 mg/dL 10/02/2024 5:05 AM EST [facility] Calcium 8.2(L) 8.6 - 10.3 mg/dL 10/02/2024 5:05 AM EST [facility] Phosphorus 3.2 2.1 - 4.7 mg/dL 10/02/2024 5:05 AM EST [facility] Albumin 3.0(L) 3.5 - 5.7 g/dL 10/02/2024 5:05 AM EST [facility] Osmolality, Calculated 292 278 - 305 mOsm/kg 10/02/2024 5:05 AM EST [facility] EGFR 73 10/02/2024 5:05 AM EST [facility] Comment:As of 2021, the estimated [...] Tejas M, Juani DC, Cameron ND, Saloni [place], Yaz [place], et al. A Unifying Approach for GFR Estimation: Recommendations of the NKF-ASN Task Force on Reassessing the inclusion of Race in Diagnosing Kidney Disease. Am J Kidney Dis. 2020. Plasma 10/02/2024 4:10 AM EST 10/02/2024 4:32 AM EST us Petey Mast MD LAB BLOOD ORDERABLES Final Res ult [facility] [address] [id number] * HIV 1+2 Antibody/Antigen with Reflex (09/30/2024 5:37 PM EST) HIV 1+2 AB/AGN Nonreactive Nonreactive 09/30/2024 8:51 PM EST [facility] Serum 09/30/2024 5:37 PM EST 09/30/2024 5:45 PM EST Narrative [facility] - 09/30/2024 8:51 PM EST HIV-1 p24 Antigen and HIV-1/HIV-2 Antibody not detected. us Cheryle DUDLEY LAB BLOOD ORDERABLES Final Result [facility] [address] [place] [address], [facility] from Last 3 Months or Most Recently Relevant to Health Maintenance Insurance [facility] MEDICARE PPO COMP MEDICAID [place] [address] [place] [id number] [employer] MEDICARE PPO COMP [place] Advance Directives For more information, please contact: [phone] * DNRCC-A (Latest Code Status on File) Date Activated Date Inactivated Comments 09/30/2024 12:48 AM 10/03/2024 7:08 PM Care Teams Administrative Assistant Data Entry Relationship Specialty Start Date End Date Unknown, Attending Provider PCP - General 09/29/24
--- OUTSIDE RECORDS SUMMARY | 2025-09-16 02:47 | XMS_ITS | Encounter Summary ---
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
--- OUTSIDE RECORDS SUMMARY | 2025-09-16 02:47 | XMS_ITS | Encounter Summary ---
Author Organization Healthcare Address [address] [place] [address] Care Team Providers Care Corporate Travel Coordinator Name Role Phone López Alicea MD Primary Care Provider [phone] Teresita Garcia LPN Unavailable Unavailabl e Slade Lennon Unavailable Teresita aGrcia LPN Unavailable Unavailabl e Encounter Details Date Type Department Care Team (Late st Contact Info) Description 09/29/2024 Orders Only External Location [address] [place] [address] Provider, External Social History Tobacco Use Types [...] Computed Tomogra phy 09/29/2024 9:54 PM EST us External Provider IMG CT PROCEDURES Final Result documented in this encounter Visit Diagnoses Not on filedocumented in this encounter Care Teams Corporate Travel Coordinator Relationship Specialty Start Date End Date López Alicea MD [address] [place] [phone] PCP - General 02/24/25 Teresita Garcia LPN [facility] None TCM Nurse 03/04/25 04/03/25 Slade Lennon PA [address] [place] [address] Referring Physician Gastroenterology 03/19/25 Teresita Garcia LPN [facility] None TCM Nurse 04/28/25 05/28/25 documented as of this encounter
--- OUTSIDE RECORDS SUMMARY | 2025-09-16 02:47 | XMS_ITS | Encounter Summary ---
Author Organization [facility] Address [address] [place] [address] Care Team Providers Care Goodyear Welter Name Role Phone López Alicea MD Primary Care Provider [phone] Encounter Details Date Type Department Care Team (Late Contact Info) Description 02/12/2025 Results Follow-Up [facility] [address] [place] [address] Yumiko Lynch PA-C [address] [place] [address] Social History Tobacco Use Types [...] Description 11/06/2025 2:30 PM EST Office Visit [facility] [address] [place] [address] López Alicea MD [address] [place] [address] documented as of this encounter Visit Diagnoses Diagnosis Potassium deficiency- Primary Hypopotassemia documented in this encounter Additional Health Concerns Assessment Noted Time PHQ-2 Depression Total Score: 1 11/09/19 24 11:34 AM EST documented as of this encounter Care Teams Goodyear Welter Relationship Specialty Start Date End Date López Alicea MD [address] [place] [address] PCP - General 07/16/15 documented as of this encounter
--- OUTSIDE RECORDS SUMMARY | 2025-09-16 02:47 | XMS_ITS | Encounter Summary ---
Author Organization [facility] Address [address] [place] [address] Care Team Providers Care Renal Technician Name Role Phone López Alicea MD Primary Care Provider [phone] Reason for Visit * Reason Onset Date Comments Med Refill 09/02/2025 Encounter Details Date Type Department Care Team (Late st Contact Info) Description 09/02/2025 Telephone [facility] [address] [place] [address] López Alicea MD [address] [place] [address] Med Refill Social History Tobacco [...] Telephone Encounter - López Alicea MD - 09/02/2025 1:32 PM EST Please call, requested meds sent to pharmacy. Patricio reviewed 09/02/2025 . Follow up appt is scheduled on 11/06/2025 . Last office visit with me : 08/01/2025 * Telephone Encounter - Vandana Hudson RegSched Rep - 09/02/2025 12:43 PM EST Caller: Chema Hendrickson Relationship: Self Best call back number: Telephone Information: Requested Prescriptions: Requested Prescriptions Pending Prescriptions Disp Refills oxyCODONE ER (OxyCONTIN) 40 MG 12 hr tablet 60 tablet 0 Sig: Take 1 tablet by mouth Every 12 (Twelve) Hours. oxyCODONE (ROXICODONE) 15 MG immediate release tablet 90 tablet 0 Sig: Take 1 tablet by mouth Every 8 (Eight) Hours As Needed for Moderate Pain. Pharmacy where request should be sent: [facility] [place] [address] [address] [phone] [facility] [phone] FX Last office visit with prescribing clinician: 08/01/2025 Last telemedicine visit with prescribing clinician: Visit date not found Next office visit with prescribing clinician: 11/06/2025 Does the patient have less than a 3 day supply: [x] Yes [] No Elroy Lackey Rep 09/02/25 12:43 EST documented in this encounter Plan of Treatment Upcoming Encounters Date Type Department Care Team (Late st Contact Info) Description 11/06/2025 2:30 PM EST Office Visit [facility] [address] [place] [address] López Alicea MD [address] [place] [address] documented as of this encounter Visit Diagnoses Diagnosis Chronic pain syndrome Degeneration of intervertebral disc of lumbar region with discogenic back pain and lower extremity pain documented in this encounter Additional Health Concerns Assessment Noted Time PHQ-2 Depression Total Score: 1 11/09/19 24 11:34 AM EST documented as of this encounter Care Teams Renal Technician Relationship Specialty Start Date End Date López Alicea MD [address] [place] [address] PCP - General 07/16/15 documented as of this encounter
--- OUTSIDE RECORDS SUMMARY | 2025-09-16 02:47 | XMS_ITS | Encounter Summary ---
Author Organization Healthcare Address [address] [place] [address] Care Team Providers Care Hadoop Consultant Name Role Phone López Alicea MD Primary Care Provider [phone] Teresita Garcia LPN Unavailable Unavailabl e Slade Lennon Unavailable Teresita Garcia LPN Unavailable Unavailabl e Encounter Details Date Type Department Care Team (Late st Contact Info) Description 11/01/2024 Orders Only External Location [address] [place] [address] Provider, External Social History Tobacco Use Types [...] on filedocumented in this encounter Care Teams Hadoop Consultant Relationship Specialty Start Date End Date López Alicea MD [address] [facility] [place] [place] [phone] PCP - General 02/24/25 Teresita Garcia LPN [facility] None TCM Nurse 03/04/25 04/03/25 Slade Lennon PA [facility] [place] [address] Referring Physician Gastroenterology 03/19/25 Teresita Garcia LPN [facility] None TCM Nurse 04/28/25 05/28/25 documented as of this encounter
--- OUTSIDE RECORDS SUMMARY | 2025-09-16 02:47 | XMS_ITS | Encounter Summary ---
Author Organization [facility] Address [address] [place] [address] Care Team Providers Care Emr Analyst Name Role Phone López Alicea MD Primary Care Provider [phone] Reason for Visit * Reason Comments Med Refill Encounter Details Date Type Department Care Team (Late st Contact Info) Description 03/06/2025 Refill [facility] [address] [place] [address] Fito Garay MD [address] [facility] [place] [address] Chronic pain syndrome; Degeneration of [...] Description 11/06/2025 2:30 PM EST Office Visit [facility] [address] [place] [address] López Alicea MD [address] [place] [address] documented as of this encounter Visit Diagnoses Diagnosis Chronic pain syndrome Degeneration of intervertebral disc of lumbar region documented in this encounter Additional Health Concerns Assessment Noted Time PHQ-2 Depression Total Score: 1 11/09/19 24 11:34 AM EST documented as of this encounter Care Teams Emr Analyst Relationship Specialty Start Date End Date López Alicea MD [address] [facility] [place] [address] PCP - General 07/16/15 documented as of this encounter
--- OUTSIDE RECORDS SUMMARY | 2025-09-16 02:47 | XMS_ITS | Encounter Summary ---
Author Organization [facility] Address [address] [place] [address] Care Team Providers Care Ice Scraper Name Role Phone López Alicea MD Primary Care Provider [phone] Reason for Visit * Reason Onset Date Comments Med Refill ED - Called Back For Treatment Only 07/22/2025 Encounter Details Date Type Department Care Team (Late st Contact Info) Description 07/22/2025 Refill [facility] [address] [place] [address] López Alicea MD [address] [place] [address] Benign prostatic hyperplasia (BPH) with straining on [...] encounter Miscellaneous Notes * Telephone Encounter - Jyoti Willingham RegSched Rep - 08/06/2025 9:33 AM EST Caller: Chema Hendrickson Relationship: Self Best call back number: [phone] Requested Prescriptions: Requested Prescriptions Pending Prescriptions Disp Refills tamsulosin (FLOMAX) 0.4 MG capsule 24 hr capsule [Pharmacy Med Name: tamsulosin 0.4 mg capsule] 30 capsule 5 Sig: TAKE ONE CAPSULE BY MOUTH EVERY NIGHT OLANZapine (zyPREXA) 5 MG tablet [Pharmacy Med Name: olanzapine 5 mg tablet] 30 tablet 5 Sig: TAKE ONE TABLET BY MOUTH AT BEDTIME oxyCODONE (ROXICODONE) 15 MG immediate release table oxyCODONE ER (OxyCONTIN) 40 MG 12 hr tablet buPROPion SR (WELLBUTRIN SR) 150 MG 12 hr tablet Pharmacy where request should be sent: [facility] - [place], [place] - [address] - [phone] - [phone] FX Last office visit with prescribing clinician: 03/10/2025 Last telemedicine visit with prescribing clinician: Visit date not found Next office visit with prescribing clinician: 11/06/2025 Additional details provided by patient: PHARMACY HAS NOT RECEIVED THE PRESCRIPTIONS. PLEASE RESEND Does the patient have less than a 3 day supply: [x] Yes Elroy Monzon Rep 08/06/25 09:34 EST documented in this encounter Plan of Treatment Upcoming Encounters Date Type Department Care Team (Late st Contact Info) Description 11/06/2025 2:30 PM EST Office Visit [facility] [address] [place] [place] [phone] López Alicea MD [address] [place] [address] documented as of this encounter Visit Diagnoses Diagnosis Benign prostatic hyperplasia (BPH) with straining on urination Visual hallucination Psychophysical visual disturbances Major depressive disorder, recurrent episode, moderate degree Major depressive disorder, recurrent episode, moderate documented in this encounter Additional Health Concerns Assessment Noted Time PHQ-2 Depression Total Score: 1 11/09/19 24 11:34 AM EST documented as of this encounter Care Teams Ice Scraper Relationship Specialty Start Date End Date López Alicea MD [address] [place] [address] PCP - General 07/16/15 documented as of this encounter
--- OUTSIDE RECORDS SUMMARY | 2025-09-16 02:47 | XMS_ITS | Encounter Summary ---
Author Organization Healthcare Address [address] [place] [address] Care Team Providers Care Laborer Cheesemaking Name Role Phone López Alicea MD Primary Care Provider [phone] Teresita Garcia LPN Unavailable Unavailabl e Slade Lennon Unavailable Teresita Garcia LPN Unavailable Unavailabl e Encounter Details Date Type Department Care Team (Late st Contact Info) Description 01/16/2024 Orders Only External Location [address] [place] [address] Provider, External Social History Tobacco Use Types [...] Lori ging 01/16/2024 12:2 6 PM EDT us External Provider IMG XR PROCEDURES Final Result documented in this encounter Visit Diagnoses Not on filedocumented in this encounter Care Teams Laborer Cheesemaking Relationship Specialty Start Date End Date López Alicea MD [address] [place] [id number] PCP - General 02/24/25 Teresita Garcia LPN [facility] None TCM Nurse 03/04/25 04/03/25 Slade Lennon PA [address] [place] [address] Referring Physician Gastroenterology 03/19/25 Teresita Garcia LPN [facility] None TCM Nurse 04/28/25 05/28/25 documented as of this encounter
--- OUTSIDE RECORDS SUMMARY | 2025-09-16 02:47 | XMS_ITS | Encounter Summary ---
Author Organization Healthcare Address [address] [place] [address] Care Team Providers Care Head Rigger Name Role Phone López Alicea MD Primary Care Provider [phone] Teresita Garcia LPN Unavailable Unavailabl e Slade Lennon Unavailable Teresita Garcia LPN Unavailable Unavailabl e Encounter Details Date Type Department Care Team (Late st Contact Info) Description 10/17/2024 Orders Only External Location [address] [place] [address] Provider, External Social History Tobacco Use Types [...] on filedocumented in this encounter Care Teams Head Rigger Relationship Specialty Start Date End Date López Alicea MD [address] [facility] [address] [place] [id number] PCP - General 02/24/25 Teresita Garcia LPN [facility] None TCM Nurse 03/04/25 04/03/25 Slade Lennon PA [facility]8 [place] [address] Referring Physician Gastroenterology 03/19/25 Teresita Garcia LPN [facility] None TCM Nurse 04/28/25 05/28/25 documented as of this encounter
--- OUTSIDE RECORDS SUMMARY | 2025-09-16 02:47 | XMS_ITS | Encounter Summary ---
Author Organization Healthcare Address [address] [place] [address] Care Team Providers Care Coater Slate Name Role Phone López Alicea MD Primary Care Provider [phone] Teresita Garcia LPN Unavailable Unavailabl e Slade Lennon Unavailable Teresita Garcia LPN Unavailable Unavailabl e Encounter Details Date Type Department Care Team (Late st Contact Info) Description 01/17/2024 Orders Only External Location [address] [place] [address] Provider, External Social History Tobacco Use Types [...] on filedocumented in this encounter Care Teams Coater Slate Relationship Specialty Start Date End Date López Alicea MD [address] [place] [address] PCP - General 02/24/25 Teresita Garcia LPN [facility] None TCM Nurse 03/04/25 04/03/25 Slade Lennon PA [facility] [place] [address] Referring Physician Gastroenterology 03/19/25 Teresita Garcia LPN [facility] None TCM Nurse 04/28/25 05/28/25 documented as of this encounter
--- OUTSIDE RECORDS SUMMARY | 2025-09-16 02:47 | XMS_ITS | Encounter Summary ---
Author Organization [facility] Address [address] [place] [address] Care Team Providers Care Geophysical Engineer Name Role Phone López Alicea MD Primary Care Provider [phone] Encounter Details Date Type Department Care Team (Late Contact Info) Description 03/11/2025 Results Follow-Up [facility] [address] [place] [address] López Alicea MD [address] [place] [address] Social History Tobacco Use Types [...] Department Care Team (Late Contact Info) Description 11/06/2025 2:30 PM EST Office Visit [facility] [address] [place] [address] López Alicea MD [address] [place] [address] documented as of this encounter Visit Diagnoses Diagnosis Potassium deficiency Hypopotassemia documented in this encounter Additional Health Concerns Assessment Noted Time PHQ-2 Depression Total Score: 1 11/09/19 24 11:34 AM EST documented as of this encounter Care Teams Geophysical Engineer Relationship Specialty Start Date End Date López Alicea MD [address] [place] [address] PCP - General 07/16/15 documented as of this encounter
--- OUTSIDE RECORDS SUMMARY | 2025-09-16 02:47 | XMS_ITS | Encounter Summary ---
Author Organization Healthcare Address [address] [place] [address] Care Team Providers Care Sample Finisher Name Role Phone López Alicea MD Primary Care Provider [phone] Teresita Garcia LPN Unavailable Unavailabl e Slade Lennon Unavailable Teresita Garcia LPN Unavailable Unavailabl e Encounter Details Date Type Department Care Team (Late st Contact Info) Description 10/17/2024 Orders Only External Location [address] [place] [address] Provider, External Social History Tobacco Use Types [...] on filedocumented in this encounter Care Teams Sample Finisher Relationship Specialty Start Date End Date López Alicea MD [address] [facility] [place] [place] [id number] PCP - General 02/24/25 Teresita Garcia LPN [facility] None TCM Nurse 03/04/25 04/03/25 Slade Lennon PA [facility] [place] [address] Referring Physician Gastroenterology 03/19/25 Teresita Garcia LPN [facility] None TCM Nurse 04/28/25 05/28/25 documented as of this encounter
--- OUTSIDE RECORDS SUMMARY | 2025-09-16 02:47 | XMS_ITS | Encounter Summary ---
Author Organization [facility] Address [address] [address] Care Team Providers Care Behavioral Health Specialist Name Role Phone López Alicea MD Primary Care Provider Encounter Details Date Type Department Care Team (Latest Contact Info) Description 08/01/2025 Travel Social History Tobacco Use Types Packs/Day [...] Description 11/06/2025 2:30 PM EST Office Visit [facility] [address] [place] [phone] López Alicea MD [address] [place] [address] documented as of this encounter Visit Diagnoses Not on filedocumented in this encounter Additional Health Concerns Assessment Noted Time PHQ-2 Depression Total Score: 1 11/09/19 24 11:34 AM EST documented as of this encounter Care Teams Behavioral Health Specialist Relationship Specialty Start Date End Date López Alicea MD [address] [place] [address] PCP - General 07/16/15 documented as of this encounter
--- OUTSIDE RECORDS SUMMARY | 2025-09-16 02:47 | XMS_ITS | Encounter Summary ---
Author Organization [facility] Address [address] [place] [address] Care Team Providers Care Bookstore Manager Name Role Phone López Alicea MD Primary Care Provider [phone] Encounter Details Date Type Department Care Team (Late Contact Info) Description 02/21/2025 Results Follow-Up [facility] [address] [place] [address] López Alicea MD [address] [place] [address] Social History Tobacco Use Types [...] Description 11/06/2025 2:30 PM EST Office Visit [facility] [address] [place] [address] López Alicea MD [address] [place] [address] documented as of this encounter Visit Diagnoses Not on filedocumented in this encounter Additional Health Concerns Assessment Noted Time PHQ-2 Depression Total Score: 1 11/09/19 24 11:34 AM EST documented as of this encounter Care Teams Bookstore Manager Relationship Specialty Start Date End Date López Alicea MD [address] [place] [address] PCP - General 07/16/15 documented as of this encounter
--- OUTSIDE RECORDS SUMMARY | 2025-09-16 02:47 | XMS_ITS | Encounter Summary ---
Author Organization [facility] Address [address] [place] [address] Care Team Providers Care Office Messenger Helper Name Role Phone López Alicea MD Primary Care Provider [phone] Encounter Details Date Type Department Care Team (Late Contact Info) Description 12/23/2024 Results Follow-Up [facility] [address] [place] [address] López Alicea MD [address] [place] [address] Social History Tobacco Use Types [...] Description 11/06/2025 2:30 PM EST Office Visit [facility] [address] [place] [address] López Alicea MD [address] [place] [address] documented as of this encounter Visit Diagnoses Not on filedocumented in this encounter Additional Health Concerns Assessment Noted Time PHQ-2 Depression Total Score: 1 11/09/19 24 11:34 AM EST documented as of this encounter Care Teams Office Messenger Helper Relationship Specialty Start Date End Date López Alicea MD [address] [place] [address] PCP - General 07/16/15 documented as of this encounter
--- OUTSIDE RECORDS SUMMARY | 2025-09-16 02:47 | XMS_ITS | Encounter Summary ---
Author Organization Healthcare Address [address] [place] [address] Care Team Providers Care Paedodontist Name Role Phone López Alicea MD Primary Care Provider [phone] Teresita Garcia LPN Unavailable Unavailabl e Slade Lennon Unavailable Teresita Garcia LPN Unavailable Unavailabl e Encounter Details Date Type Department Care Team (Late st Contact Info) Description 06/21/2024 Orders Only External Location [address] [place] [address] Provider, External Social History Tobacco Use Types [...] on filedocumented in this encounter Care Teams Paedodontist Relationship Specialty Start Date End Date López Alicea MD [address] [place] [address] PCP - General 02/24/25 Teresita Garcia LPN [facility] None TCM Nurse 03/04/25 04/03/25 Slade Lennon PA [facility]8 [place] [address] Referring Physician Gastroenterology 03/19/25 Teresita Garcia LPN [facility] None TCM Nurse 04/28/25 05/28/25 documented as of this encounter
--- OUTSIDE RECORDS SUMMARY | 2025-09-16 02:47 | XMS_ITS | Encounter Summary ---
Author Organization [facility] Address [address] [place] [address] Care Team Providers Care Diagnostic Cardiac Sonographer Name Role Phone López Alicea MD Primary Care Provider Encounter Details Date Type Department Care Team (Late st Contact Info) Description 08/24/2015 External CPT II [facility] [employer] Social History Tobacco Use [...] Description 11/06/2025 2:30 PM EST Office Visit [facility] [address] [place] [address] López Alicea MD [address] [place], [place] [id number] documented as of this encounter Visit Diagnoses Not on filedocumented in this encounter Care Teams Diagnostic Cardiac Sonographer Relationship Specialty Start Date End Date López Alicea MD [address] [place] [address] PCP - General 07/16/15 documented as of this encounter
--- OUTSIDE RECORDS SUMMARY | 2025-09-16 02:47 | XMS_ITS | Encounter Summary ---
Author Organization Healthcare Address [address] [place] [address] Care Team Providers Care Pullman Clerk Name Role Phone López Alicea MD Primary Care Provider [phone] Teresita Garcia LPN Unavailable Unavailabl e Slade Lennon Unavailable Teresita Garcia LPN Unavailable Unavailabl e Encounter Details Date Type Department Care Team (Late st Contact Info) Description 08/26/2024 Orders Only External Location [address] [place] [address] Provider, External Social History Tobacco Use Types [...] on filedocumented in this encounter Care Teams Pullman Clerk Relationship Specialty Start Date End Date López Alicea MD [address] [place] [address] PCP - General 02/24/25 Teresita Garcia LPN [facility] None TCM Nurse 03/04/25 04/03/25 Slade Lennon PA [facility]8 [place] [address] Referring Physician Gastroenterology 03/19/25 Teresita Garcia LPN [facility] None TCM Nurse 04/28/25 05/28/25 documented as of this encounter
--- OUTSIDE RECORDS SUMMARY | 2025-09-16 02:47 | XMS_ITS | Encounter Summary ---
Author Organization Healthcare Address [address] [place] [address] Care Team Providers Care Racing Mechanic Name Role Phone López Alicea MD Primary Care Provider [phone] Teresita Garcia LPN Unavailable Unavailabl e Slade Lennon Unavailable Teresita Garcia LPN Unavailable Unavailabl e Encounter Details Date Type Department Care Team (Late st Contact Info) Description 10/17/2024 Orders Only External Location [address] [place] [address] Provider, External Social History Tobacco Use Types [...] on filedocumented in this encounter Care Teams Racing Mechanic Relationship Specialty Start Date End Date López Alicea MD [address] [facility] [place] [id number] PCP - General 02/24/25 Teresita Garcia LPN [facility] None TCM Nurse 03/04/25 04/03/25 Slade Lennon PA [facility]8 [place] [address] Referring Physician Gastroenterology 03/19/25 Teresita Garcia LPN [facility] None TCM Nurse 04/28/25 05/28/25 documented as of this encounter
--- OUTSIDE RECORDS SUMMARY | 2025-09-16 02:47 | XMS_ITS | Encounter Summary ---
Author Organization Healthcare Address [address] [place] [address] Care Team Providers Care Geometry Professor Name Role Phone López Alicea MD Primary Care Provider [phone] Teresita Garcia LPN Unavailable Unavailabl e Slade Lennon Unavailable Teresita Garcia LPN Unavailable Unavailabl e Encounter Details Date Type Department Care Team (Late st Contact Info) Description 01/16/2024 Orders Only External Location [address] [place] [address] Provider, External Social History Tobacco Use Types [...] Computed Tomogra phy 01/16/2024 1:11 PM EDT us External Provider IMG CT PROCEDURES Final Result documented in this encounter Visit Diagnoses Not on filedocumented in this encounter Care Teams Geometry Professor Relationship Specialty Start Date End Date López Alicea MD [address] [place] [address] PCP - General 02/24/25 Teresita Garcia LPN [facility] None TCM Nurse 03/04/25 04/03/25 Slade Lennon PA [facility]8 [place] [address] Referring Physician Gastroenterology 03/19/25 Teresita Garcia LPN [facility] None TCM Nurse 04/28/25 05/28/25 documented as of this encounter
--- OUTSIDE RECORDS SUMMARY | 2025-09-16 02:47 | XMS_ITS | Encounter Summary ---
Author Organization Healthcare Address [address] [place] [address] Care Team Providers Care Hydropulper Name Role Phone López Alicea MD Primary Care Provider [phone] Teresita Garcia LPN Unavailable Unavailabl e Slade Lennon Unavailable Teresita Garcia LPN Unavailable Unavailabl e Encounter Details Date Type Department Care Team (Late st Contact Info) Description 10/17/2024 Orders Only External Location [address] [place] [address] Provider, External Social History Tobacco Use Types [...] on filedocumented in this encounter Care Teams Hydropulper Relationship Specialty Start Date End Date López Alicea MD [address] [facility] [place] [place] [id number] PCP - General 02/24/25 Teresita Garcia LPN [facility] None TCM Nurse 03/04/25 04/03/25 Slade Lennon PA [facility]8 [place] [address] Referring Physician Gastroenterology 03/19/25 Teresita Garcia LPN [facility] None TCM Nurse 04/28/25 05/28/25 documented as of this encounter
--- OUTSIDE RECORDS SUMMARY | 2025-09-16 02:47 | XMS_ITS | Encounter Summary ---
Author Organization Healthcare Address [address] [place] [address] Care Team Providers Care Counter Waiter Name Role Phone López Alicea MD Primary Care Provider [phone] Teresita Garcia LPN Unavailable Unavailabl e Slade Lennon Unavailable Teresita Garcia LPN Unavailable Unavailabl e Encounter Details Date Type Department Care Team (Late st Contact Info) Description 10/17/2024 Orders Only External Location [address] [place] [address] Provider, External Social History Tobacco Use Types [...] on filedocumented in this encounter Care Teams Counter Waiter Relationship Specialty Start Date End Date López Alicea MD [address] [place] [address] PCP - General 02/24/25 Teresita Garcia LPN [facility] None TCM Nurse 03/04/25 04/03/25 Slade Lennon PA [facility]8 [place] [address] Referring Physician Gastroenterology 03/19/25 Teresita Garcia LPN [facility] None TCM Nurse 04/28/25 05/28/25 documented as of this encounter
--- OUTSIDE RECORDS SUMMARY | 2025-09-16 02:47 | XMS_ITS | Encounter Summary ---
Author Organization Healthcare Address [address] [place] [address] Care Team Providers Care Data Entry Associate Name Role Phone López Alicea MD Primary Care Provider [phone] Teresita Garcia LPN Unavailable Unavailabl e Slade Lennon Unavailable Teresita Garcia LPN Unavailable Unavailabl e Encounter Details Date Type Department Care Team (Late st Contact Info) Description 10/17/2024 Orders Only External Location [address] [place] [address] Provider, External Social History Tobacco Use Types [...] on filedocumented in this encounter Care Teams Data Entry Associate Relationship Specialty Start Date End Date López Alicea MD [address] [facility] [address] [place] [id number] PCP - General 02/24/[address] [facility] None TCM Nurse 03/04/25 04/03/25 Slade Lennon PA [facility]8 [place] [address] Referring Physician Gastroenterology 03/19/25 Teresita Garcia LPN [facility] None TCM Nurse 04/28/25 05/28/25 documented as of this encounter
--- OUTSIDE RECORDS SUMMARY | 2025-09-16 02:47 | XMS_ITS | Encounter Summary ---
Author Organization [facility] Address [address] [place] [address] Care Team Providers Care Outboard Motor Inspector Name Role Phone López Alicea MD Primary Care Provider [phone] Encounter Details Date Type Department Care Team (Late Contact Info) Description 01/25/2025 Results Follow-Up [facility] MED[facility] [address] [place] [address] López Alicea MD [address] [place] [address] Social History Tobacco Use Types [...] Visit [facility] [address] [place] [address] López Alicea MD [address] [place] [address] documented as of this encounter Visit Diagnoses Not on filedocumented in this encounter Additional Health Concerns Assessment Noted Time PHQ-2 Depression Total Score: 1 11/09/19 24 11:34 AM EST documented as of this encounter Care Teams Outboard Motor Inspector Relationship Specialty Start Date End Date López Alicea MD [address] [place] [address] PCP - General 07/16/15 documented as of this encounter
--- OUTSIDE RECORDS SUMMARY | 2025-09-16 02:47 | XMS_ITS | Encounter Summary ---
Author Organization [facility] Address [address] [place] [address] Care Team Providers Care Salon Leader Name Role Phone López Alicea MD Primary Care Provider [phone] Reason for Visit * Reason Comments Med Refill Encounter Details Date Type Department Care Team (Late st Contact Info) Description 08/19/2025 Refill [facility] [address] [place] [address] López Alicea MD [address] [place] [address] Chronic pain syndrome; Degeneration of [...] Telephone Encounter - López Alicea MD - 08/19/2025 1:52 PM EST Patricio reviewed 08/19/2025 . Follow up appt is scheduled on 11/06/2025 . Last office visit with me : 08/01/2025 documented in this encounter Plan of Treatment Upcoming Encounters Date Type Department Care Team (Late st Contact Info) Description 11/06/2025 2:30 PM EST Office Visit [facility] [address] [place] [address] López Alicea MD [address] [place] [address] documented as of this encounter Visit Diagnoses Diagnosis Chronic pain syndrome Degeneration of intervertebral disc of lumbar region documented in this encounter Additional Health Concerns Assessment Noted Time PHQ-2 Depression Total Score: 1 11/09/19 24 11:34 AM EST documented as of this encounter Care Teams Salon Leader Relationship Specialty Start Date End Date López Alicea MD [address] [place] [address] PCP - General 07/16/15 documented as of this encounter
[2025-09-16] MEDS: ACETAMINOPHEN 500MG TAB 1000 MG PO (02:51)
[2025-09-16] MEDS: MORPHINE 4MG/ML SYRINGE 4 MG IV (02:51)
[2025-09-16 03:07] LABS: Hematocrit 29.0 % (42.0-52.0); Hemoglobin 8.5 g/dL (14.1-18.0); Immature Granulocytes % 0.4 %; Mean Corpuscular HGB Conc 29.3 g/dL (31.8-35.4); Mean Corpuscular Hemoglobin 23.9 pg (27.0-31.2); Mean Corpuscular Volume 81.5 fl (80-94); Nucleated Red Blood Cells % 0 %; Platelet Count 106 K/mm3 (142-424); Red Blood Count 3.56 M/mm3 (4.60-6.20); Red Cell Distribution Width-SD 57.3 fL; White Blood Count 2.3 K/mm3 (4.8-10.8)
[2025-09-16 03:14] LABS: Alanine Aminotransferase 21 U/L (12-78); Albumin Level 3.8 g/dl (3.5-5.0); Albumin/Globulin Ratio 1.0 (1.1-1.8); Alkaline Phosphatase 170 U/L (38-126); Anion Gap 9.9 mEq/L (5-15); Aspartate Amino Transferase 43 U/L (17-59); Bilirubin,Total 0.7 mg/dl (0.2-1.3); Blood Urea Nitrogen 19 mg/dl (9-20); Calcium 8.7 mg/dl (8.4-10.2); Carbon Dioxide 28 mmol/L (22.0-30.0); Chloride 103 mmol/L (98-107); Creatinine Clearance Estimated 102 mL/min (50-200); Creatinine,Serum 1.40 mg/dl (0.66-1.25); Estimated Glomerular Filt Rate 51 ml/min (>60); GFR (African American) 62 ML/MIN (>60); Globulin 3.9 g/dL (1.3-3.2); Glucose 101 mg/dl (74-100); Potassium 3.9 mmoL/L (3.5-5.1); Sodium 137 mmol/L (136-145); Total Protein,Serum 7.7 g/dl (6.3-8.2)
[2025-09-16] MEDS: IOPAMIDOL-370 (76%);100ML BOTTLE 80 ML IV (03:14)
[2025-09-16] MEDS: SODIUM CHLORIDE 0.9% 10ML SYR (RAD ONLY) 10 ML IV (03:14)
[2025-09-16] MEDS: 0.9 % SODIUM CHLORIDE 50 ML VIAL IV (03:14)
[2025-09-16 03:15] LABS: INR 1.04 (0.9-1.1); Prothrombin Time 11.5 seconds (10.1-12.5)
--- NOTE | 2025-09-16 03:20 | HMH.EDGENADL ---
Discharge Plan Disposition Patient Disposition: Home, Self-Care Condition: Fair Prescriptions Prescriptions: No Action hydroxyzine pamoate 50 mg capsule 50 mg PO Q6H PRN Patient Comments: TAKE ONE CAPSULE BY MOUTH EVERY 6 HOURS NEEDED FOR ITCHING sumatriptan succinate 100 mg tablet 100 mg PO ONCE PRN sertraline [Zoloft] 100 MG tablet 200 mg PO DAILY pantoprazole 40 MG tablet,delayed release (DR/EC) 40 mg PO DAILY colchicine [Colcrys] 0.6 MG tablet 0.6 mg PO DAILY tizanidine [Zanaflex] 4 MG capsule 4 mg PO BIDP PRN (Reason: Muscle Spasm) amlodipine [Norvasc] 10 MG tablet 10 mg PO DAILY allopurinol 300 MG tablet 300 mg PO DAILY bupropion HCl 150 mg tablet sustained-release 12 hr 150 mg PO DAILY Patient Comments: TAKE ONE TABLET BY MOUTH 3 TIMES A DAY olanzapine 5 mg tablet 5 mg PO HS Patient Comments: TAKE ONE TABLET BY MOUTH AT BEDTIME oxycodone-acetaminophen 10-325 mg tablet 1 tab PO Q8HP PRN (Reason: Moderate Pain (Scale Score 5-6)) Patient Comments: TAKE 1 TABLET BY MOUTH EVERY 8 HOURS NEEDED FOR MODERATE PAIN tamsulosin 0.4 mg capsule 0.4 mg PO HS Patient Comments: TAKE ONE CAPSULE BY MOUTH EVERY NIGHT gabapentin 800 mg tablet 800 mg PO TID Patient Comments: TAKE ONE TABLET BY MOUTH 3 TIMES A DAY buspirone 10 mg tablet 20 mg PO BID Patient Comments: TAKE TWO TABLETS BY MOUTH 2 TIMES A DAY oxycodone [OxyContin] 40 mg tablet,oral only,ext.rel.12 hr 40 mg PO BID Patient Comments: TAKE 1 TABLET BY MOUTH EVERY TWELVE HOURS spironolactone 100 mg tablet 100 mg PO DAILY 30 Days Qty: 30 0RF furosemide [Lasix] 80 mg tablet 80 mg PO DAILY Qty: 30 0RF Referrals Follow up/Referrals: López Alicea MD [Primary Care Provider, Medical] - See instructions Activity Restrictions/Add. Instructions Additional Instructions/Restrictions: Please follow-up with your primary care provider. Please return to the emergency department if you develop any new or worsening symptoms or become concerned for your health. Clinical Impressions Clinical Impression: Fall, Traumatic injury of back Print Language Print Language: Haitian Discharge ED Provider: Ernie Grant Adult HPI General Chief complaint: Fall Stated complaint: fall Time Seen by Provider: 09/16/25 02:40 Mode of Arrival: EMS Source of Information: Patient and EMS Description of Symptoms (Recalled from ER Triage Doc. by RN): Pt to ED with c/o fall. Pt reports his legs were weak and gave out, causing him to fall. Pt was walking to the bathroom and fell into the toilet. Pt denies hitting his head or LOC. Pt reports pain to left side and pain with inspiration. Redness noted to left side/back. No blood thinners per EMS report. EMS reports C-spine was cleared in the field by palpation. History of Present Illness HPI narrative: 64-year-old male with history of obesity, Rivera cirrhosis, chronic pancytopenia presents after a fall. He reports that his legs got weak and gave out on him as he was going to pee. He struck the toilet with his left back. Reports pain in this area as well as pain with inspiration. Denies hitting his head, loss of consciousness. Denies neck pain or chest pain or anterior abdominal pain. Denies any extremity pain. He reports that his legs occasionally give out on him, but it has not happened in a while. Denies any bowel or bladder incontinence. Denies any saddle anesthesia. Reports normal sensation in the lower extremities, denies any pain with movement of the extremities. Related Data Home Medications ?Medication ?Instructions ?Recorded ?Confirmed allopurinol 300 mg tablet 300 mg PO DAILY 03/27/18 04/23/25 amlodipine 10 mg tablet (Norvasc) 10 mg PO DAILY 03/27/18 04/23/25 colchicine 0.6 mg tablet (Colcrys) 0.6 mg PO DAILY 03/27/18 04/23/25 pantoprazole 40 mg tablet,delayed 40 mg PO DAILY GERD 03/27/18 04/23/25 release sertraline 100 mg tablet (Zoloft) 200 mg PO DAILY 03/27/18 04/23/25 tizanidine 4 mg capsule (Zanaflex) 4 mg PO BIDP PRN Muscle Spasm 03/27/18 04/23/25 bupropion HCl 150 mg tablet,12 hr 150 mg PO DAILY 01/15/25 04/23/25 sustained-release buspirone 10 mg tablet 20 mg PO BID 01/15/25 04/23/25 gabapentin 800 mg tablet 800 mg PO TID 01/15/25 04/23/25 olanzapine 5 mg tablet 5 mg PO HS 01/15/25 04/23/25 oxycodone 40 mg tablet,crush 40 mg PO BID 01/15/25 04/23/25 resistant,extended release 12 hr (OxyContin) oxycodone-acetaminophen 10 mg-325 1 tab PO Q8HP PRN Moderate Pain 01/15/25 04/23/25 mg tablet (Scale Score 5-6) tamsulosin 0.4 mg capsule 0.4 mg PO HS 01/15/25 04/23/25 hydroxyzine pamoate 50 mg capsule 50 mg PO Q6H PRN 01/17/25 04/23/25 sumatriptan succinate 100 mg tablet 100 mg PO ONCE PRN 01/17/25 04/23/25 Previous Rx's ?Medication ?Instructions ?Recorded furosemide 80 mg tablet (Lasix) 80 mg PO DAILY #30 tabs 01/16/25 spironolactone 100 mg tablet 100 mg PO DAILY 30 days #30 tabs 01/16/25 Allergies Allergy/AdvReac Type Severity Reaction Status Date / Time celecoxib (From Celebrex) Allergy Verified 04/23/25 09:30 [facility] Disclaimer: The information contained in this section may have been updated after the patient was seen, as this information can be updated by other users. Medical History Chronic anemia CKD (chronic kidney disease) Esophageal varices GI (gastrointestinal bleed) History of gastroesophageal reflux (GERD) Cirrhosis Surgical History History of back surgery Family History Other Cancer Social History Smoking Status: Unknown if ever smoked alcohol intake: never substance use type: denies use current occupational status: disabled Travel in the last 8 weeks?: None Other Medical History Have you received the Flu Vaccine for this season: No Have you received the Pneumonia Vaccine: Yes ROS Obtained: Yes All systems reviewed & no additional complaints except as documented Physical Exam General General appearance: alert, in no apparent distress and obese Head Head exam: atraumatic and normocephalic Eye Eye exam: Present normal appearance, PERRL and EOMI ENT ENT exam: Present normal oropharynx and normal external ear exam Neck Neck exam: Present normal inspection and full ROM Chest Chest inspection: Present normal inspection and symmetric chest wall rise; Absent tenderness Respiratory Respiratory exam: Present normal lung sounds bilaterally; Absent respiratory distress Cardiovascular Cardiovascular exam: Present regular rate and normal rhythm Abdominal Exam Abdominal exam: Present soft; Absent distention, tenderness or guarding Extremities Exam Extremities exam: Present normal inspection; Absent edema or joint swelling Back Exam Back exam: Present normal inspection, tenderness and CVA tenderness (L) Neurological Exam Neurological exam: Present alert and oriented X3; Absent motor sensory deficit Psychiatric Psychiatric exam: Present normal affect and normal mood Skin Skin exam: Present warm, dry and normal color Lymphatic Lymphatic Findings: no adenopathy Medical Decision Making Medical Records Medical records reviewed: Yes I reviewed the patient's medical records. Screening: Per USPSTF and CDC recommendations, given the prevalence of disease in our region, it is our hospital?s policy to screen for HIV and viral Hepatitis for all patients aged 18 and over and those with ongoing risk factors. Patricio Inquiry Pt receiving controlled substance: No Patricio was queried for this patient: No Vital Signs: 09/16/25 02:40 09/16/25 07:00 09/16/25 07:10 Temperature 98.9 F Temperature Source Oral Pulse Rate 66 Pulse Rate [Left Radial] 89 Respiratory Rate 17 12 Blood Pressure 112/59 L Blood Pressure [Right Arm] 143/73 H Blood Pressure Mean [Right Arm] 96 Blood Pressure Source [Right Arm] Automatic Cuff Blood Pressure Position [Right Arm] Sitting 02 Sat by Pulse Oximetry 95 90 L 95 Oxygen Delivery Method Room Air Room Air 09/16/25 07:31 09/16/25 08:18 Temperature 98.9 F Temperature Source Pulse Rate 70 70 Pulse Rate [Left Radial] Respiratory Rate 13 13 Blood Pressure 113/70 113/70 Blood Pressure [Right Arm] Blood Pressure Mean [Right Arm] Blood Pressure Source [Right Arm] Blood Pressure Position [Right Arm] 02 Sat by Pulse Oximetry 97 Oxygen Delivery Method Room Air Lab Data Lab results reviewed: Yes I reviewed the patient's lab results. Lab Results 09/16/25 02:36: WBC 2.3 L, RBC 3.56 L, Hgb 8.5 L, Hct 29.0 L, MCV 81.5, MCH 23.9 L, MCHC 29.3 L, RDW 19.1 H, Plt Count 106 L, MPV 11.3 H, Neut % (Auto) 76.3, Lymph % (Auto) 15.0, [place] % (Auto) 6.6, Eos % (Auto) 1.3, Baso % (Auto) 0.4, Neut # (Auto) 1.7 L, Lymph # (Auto) 0.3 L, [place] # (Auto) 0.2, Eos # (Auto) 0.0, Baso # (Auto) 0.0, Total Counted 100, Neutrophils % (Manual) 75, Lymphocytes % (Manual) 20, Monocytes % (Manual) 4, Basophils % (Manual) 1.0, Platelet Estimate Normal, Hypochromasia 2+, Ovalocytes 1+, PT 11.5, INR 1.04, Sodium 137, Potassium 3.9, Chloride 103, Carbon Dioxide 28, Anion Gap 9.9, BUN 19, Creatinine 1.40 H, Estimated Creat Clear 102, Estimated GFR 51 L, Est GFR ( Amer) 62, Glucose 101 H, Calcium 8.7, Total Bilirubin 0.7, AST 43, ALT 21, Alkaline Phosphatase 170 H, Total Protein 7.7, Albumin 3.8, Globulin 3.9 H, Albumin/Globulin Ratio 1.0 L 09/16/25 02:36 09/16/25 02:36 Orders (Tests/Meds): ED MEDICATIONS Discontinued Medications Generic Name Dose Route Start Last Admin Trade Name Lanceq PRN Reason Stop Dose Admin Acetaminophen 1,000 mg 09/16/25 02:39 09/16/25 02:51 Acetaminophen 500mg Tab PO 09/16/25 02:40 1,000 mg ONCE ONE Administration Iopamidol 80 ml 09/16/25 03:13 09/16/25 03:14 Iopamidol-370 (76%);100ml Bottle IV 09/16/25 03:14 80 ml ONCE ONE Administration Morphine Sulfate 4 mg 09/16/25 02:39 09/16/25 02:51 Morphine 4mg/Ml Syringe IV 09/16/25 02:40 4 mg ONCE ONE Administration Oxycodone HCl 15 mg 09/16/25 03:26 09/16/25 03:36 Oxycodone 5mg Immediate Release Tablet PO 09/16/25 03:27 15 mg ONCE ONE Administration Sodium Chloride 50 ml 09/16/25 03:13 09/16/25 03:14 0.9 % Sodium Chloride 50 Ml Vial IV 09/16/25 03:14 50 ml ONCE ONE Administration Sodium Chloride 10 ml 09/16/25 03:13 09/16/25 03:14 Sodium Chloride 0.9% 10ml Syr (Rad Only) IV 09/16/25 03:14 10 ml ONCE ONE Administration ORDERS Category Date Time Status CT angio abd/pel - TRAUMA Stat Cat Scan 09/16/25 02:[address] angio chest - dissection Stat Cat Scan 09/16/25 02:[address] cervical spine wo con Stat Cat Scan 09/16/25 02:[address] head/brain wo con Stat Cat Scan 09/16/25 02:[address] lumbar spine wo con Stat Cat Scan 09/16/25 02:[address] thoracic spine wo con Stat Cat Scan 09/16/25 02:39 Completed CBC w/Auto Diff [Complete Blood Count Auto Diff] Stat Lab 09/16/25 02:36 Completed CMP [Comprehensive Metabolic Panel] Stat Lab 09/16/25 02:36 Completed INR [Prothrombin Time INR] Stat Lab 09/16/25 02:36 Completed Medical Decision Narrative: 64-year-old male with history of cirrhosis and morbid obesity and chronic kidney disease presents after a fall from standing while peeing, striking his left flank on the toilet. History was obtained via interactive discussion with patient, EMS, chart review. On arrival, patient is [afebrile, hemodynamically stable, satting appropriately, alert, oriented x4, GCS 15], moving all extremities spontaneously. Full physical exam performed and significant for left flank/back tenderness, no cervical tenderness. Normal sensation in the lower extremities, normal strength with dorsiflexion and plantarflexion. Patient is able to resist gravity in the bilateral lower extremities for over 5 seconds, but reports he feels weaker than normal. Denies any saddle anesthesia. Patient was able to void spontaneously without difficulty. Differential includes but is not limited to intracranial trauma intrathoracic trauma intra-abdominal trauma spine trauma extremity trauma, cauda equina. Patient was given morphine and oxycodone and Tylenol for pain control. Patient is on massive doses of opiates at home. Workup initiated including trauma CT scan, lab. On re-evaluation, patient reports some improvement in pain after medications. Laboratory workup independently interpreted by me and significant for stable pancytopenia, stable creatinine at 1.4. Imaging independently interpreted by me and significant for no evidence of rib fracture, splenic injury, intracranial trauma. See radiology read for full review of final results. We Patient at the bedside and he was able to ambulate with a walker which is his normal at home. Given this, I am not significantly concerned for any sort of spinal cord issue at this time. No evidence of serious trauma at this time. Patient was discharged in stable condition with return precautions. Procedures Risk/Benefits of Procedure(s) Were Explained: Yes Critical Care Critical Care Time Critical Care Time: No
[2025-09-16] MEDS: OXYCODONE 5MG IMMEDIATE RELEASE TABLET 15 MG PO (03:36)
[2025-09-16 03:56] LABS: Hypochromasia 2+; Ovalocytes 1+; Total Cells Counted 100
--- NOTE | 2025-09-16 05:10 | PC.NURSE ---
pt able to ambulate in room with walker
[2025-09-16 07:00] VITALS: BP 112/59; PULSE 66; RESP 12; O2SAT 90
[2025-09-16 07:10] VITALS: O2SAT 95
[2025-09-16 07:31] VITALS: BP 113/70; PULSE 70; RESP 13; O2SAT 97
--- NOTE | 2025-09-16 07:33 | PC.NURSE ---
Spoke with case management about arrangement for transportation back home for the pt. Case management will call back when they have a plan.
--- NOTE | 2025-09-16 08:06 | SW/DCPLANNER ---
I have arranged [facility] [employer] transportation for this patient. I did receive approval from [employer] Portal Developer (Lucrecia) to use an [facility] walker for the ride home. I also update Betzaida collins/ [employer] to ask flatbed truck driver to please return walker to [facility] ER.
[2025-09-16 08:18] VITALS: BP 113/70; PULSE 70; RESP 13; TEMP 37.2; O2SAT 97
== END 2025-09-16 08:20 | disposition home or self-care (01) ==
PROVIDERS: Emergency Provider Emergency Medicine; PCP Family Medicine
DX: S39.92XA Unspecified injury of lower back, initial encounter (principal); W18.39XA Other fall on same level, initial encounter; D61.818 Other pancytopenia; K74.60 Unspecified cirrhosis of liver
CPT/HCPCS: 70450; 71275; 72125; 72128; 72131; 74174; 80053; 85007; 85025; 85610; 96374; 99285; J2270; Q9967

== ENCOUNTER 2025-09-28 08:21 | Emergency (ER) | payer MEDICARE, MEDICAID, SELFPAY ==
--- OUTSIDE RECORDS SUMMARY | 2025-08-01 13:30 | XMS_ITS | Encounter Summary ---
Author Organization [facility] Address [address] [place] [address] Care Team Providers Care Conservation Enforcement Officer Name Role Phone López Alicea MD Primary Care Provider Reason for Visit * Reason Comments Primary Care Follow-Up GI Problem Encounter Details Date Type Department Care Team (Latest Contact Info) Description 08/01/2025 2:30 PM EDT Office Visit [facility] [address] [place] [address] López Alicea MD [address] [place] [address] Need for influenza vaccination (Primary [...] GI Problem Subjective Chema Hendrickson presents to [facility] HPI The patient is a [...] decreased appetite. He continues to see Dr. June at Dr. Jones's office. He has consulted with a neurosurgeon, Dr. Villar, for his back issues, but surgery was [...] for influenza vaccination (Primary) - Fluzone >6mos ([id number]) 2. Secondary esophageal varices with bleeding 3. [...] appropriate. López Alicea MD Patient or patient claim service representative verbalized consent for the use of Ambient Listening during the visit with López Alicea MD for chart documentation. 08/01/2025 14:59 EDT documented in this encounter Plan of Treatment Upcoming Encounters Date Type Department Care Team (Late st Contact Info) Description 11/06/2025 2:30 PM EST Office Visit [facility] [address] [place], [place] [address] López Alicea MD [address] [place] [address] documented as of this encounter Visit Diagnoses [...] documented as of this encounter Care Teams Conservation Enforcement Officer Relationship Specialty Start Date End Date López Alicea MD [address] [place] [address] PCP - General 07/16/15 documented as of this encounter
[2025-09-28] VITALS (14 sets, daily range): BP systolic 112–137; BP diastolic 44–70; PULSE 61–91; RESP 11–21; TEMP 36.7–37; O2SAT 84–96; BMI 41.1
--- OUTSIDE RECORDS SUMMARY | 2025-09-28 08:26 | XMS_ITS | Encounter Summary ---
Author Organization [facility] Address [address] [place] [address] Care Team Providers Care Quality Reviewer Name Role Phone López Alicea MD Primary Care Provider [phone] Encounter Details Date Type Department Care Team (Late Contact Info) Description 09/17/2025 Results Follow-Up [facility] [address] [place] [address] López Alicea MD [address] [place] [address] Social History Tobacco Use Types [...] Description 11/06/2025 2:30 PM EST Office Visit [facility] [address] [place] [address] López Alicea MD [address] [place] [address] documented as of this encounter Visit Diagnoses Not on filedocumented in this encounter Additional Health Concerns Assessment Noted Time PHQ-2 Depression Total Score: 1 11/09/19 24 11:34 AM EST documented as of this encounter Care Teams Quality Reviewer Relationship Specialty Start Date End Date López Alicea MD [address] [place] [address] PCP - General 07/16/15 documented as of this encounter
--- OUTSIDE RECORDS SUMMARY | 2025-09-28 08:26 | XMS_ITS | Encounter Summary ---
Author Organization Healthcare Address [address] [place] [address] Care Team Providers Care Featheredge Machine Operator Name Role Phone López Alicea MD Primary Care Provider [phone] Teresita Garcia LPN Unavailable Unavailabl e Slade Lennon Unavailable Teresita Garcia LPN Unavailable Unavailabl e Encounter Details Date Type Department Care Team (Late st Contact Info) Description 11/22/2024 Orders Only External Location [address] [place] [address] Provider, External Social History Tobacco Use Types [...] on filedocumented in this encounter Care Teams Featheredge Machine Operator Relationship Specialty Start Date End Date López Alicea MD [facility] [address] PCP - General 02/24/25 Teresita Garcia LPN [facility] None TCM Nurse 03/04/25 04/03/25 Slade Lennon [place] [id number] Referring Physician Gastroenterology 03/19/25 Teresita Garcia LPN [facility] None TCM Nurse 04/28/25 05/28/25 documented as of this encounter
--- OUTSIDE RECORDS SUMMARY | 2025-09-28 08:26 | XMS_ITS | Encounter Summary ---
Author Organization Healthcare Address [address] [place] [address] Care Team Providers Care Septic Tank Servicer Name Role Phone López Alicea MD Primary Care Provider [phone] Teresita Garcia LPN Unavailable Unavailabl e Slade Lennon Unavailable Teresita Garcia LPN Unavailable Unavailabl e Encounter Details Date Type Department Care Team (Late st Contact Info) Description 02/05/2025 Orders Only External Location [address] [place] [address] Provider, External Social History Tobacco Use Types [...] on filedocumented in this encounter Care Teams Septic Tank Servicer Relationship Specialty Start Date End Date López Alicea MD [facility] [address] PCP - General 02/24/25 Teresita Garcia LPN [facility] None TCM Nurse 03/04/25 04/03/25 Slade Lennon [place] [id number] Referring Physician Gastroenterology 03/19/25 Teresita Garcia LPN [facility] None TCM Nurse 04/28/25 05/28/25 documented as of this encounter
--- OUTSIDE RECORDS SUMMARY | 2025-09-28 08:26 | XMS_ITS | Encounter Summary ---
Author Organization Healthcare Address [address] [place] [address] Care Team Providers Care Radiologic Technology Program Director Name Role Phone López Alicea MD Primary Care Provider [phone] Teresita Garcia LPN Unavailable Unavailabl e Slade Lennon Unavailable Teresita Garcia LPN Unavailable Unavailabl e Encounter Details Date Type Department Care Team (Late st Contact Info) Description 02/05/2025 Orders Only External Location [address] [place] [address] Provider, External Social History Tobacco Use Types [...] on filedocumented in this encounter Care Teams Radiologic Technology Program Director Relationship Specialty Start Date End Date López Alicea MD [facility] [address] PCP - General 02/24/25 Teresita Garcia LPN [facility] None TCM Nurse 03/04/25 04/03/25 Slade Lennon [place] [id number] Referring Physician Gastroenterology 03/19/25 Teresita Garcia LPN [facility] None TCM Nurse 04/28/25 05/28/25 documented as of this encounter
--- OUTSIDE RECORDS SUMMARY | 2025-09-28 08:26 | XMS_ITS | Encounter Summary ---
Author Organization Healthcare Address [address] [place] [address] Care Team Providers Care Double End Chucking Machine Operator Name Role Phone López Alicea MD Primary Care Provider [phone] Teresita Garcia LPN Unavailable Unavailabl e Slade Lennon Unavailable Teresita Garcia LPN Unavailable Unavailabl e Encounter Details Date Type Department Care Team (Late st Contact Info) Description 01/14/2025 Orders Only External Location [address] [place] [address] Provider, External Social History Tobacco Use Types [...] on filedocumented in this encounter Care Teams Double End Chucking Machine Operator Relationship Specialty Start Date End Date López Alicea MD [facility] [address] PCP - General 02/24/25 Teresita Garcia LPN [facility] None TCM Nurse 03/04/25 04/03/25 Slade Lennon PA [id number] Referring Physician Gastroenterology 03/19/25 Teresita Garcia LPN [facility] None TCM Nurse 04/28/25 05/28/25 documented as of this encounter
--- OUTSIDE RECORDS SUMMARY | 2025-09-28 08:26 | XMS_ITS | Encounter Summary ---
Author Organization [facility] Address [address] [place] [address] Care Team Providers Care Tablet Tester Name Role Phone López Alicea MD Primary Care Provider [phone] Encounter Details Date Type Department Care Team (Late Contact Info) Description 09/17/2025 Results Follow-Up [facility] [address] [place] [address] López Alicea MD [address] [place] [address] Social History Tobacco Use Types [...] Description 11/06/2025 2:30 PM EST Office Visit [facility] [address] [place] [address] López Alicea MD [address] [place] [address] documented as of this encounter Visit Diagnoses Not on filedocumented in this encounter Additional Health Concerns Assessment Noted Time PHQ-2 Depression Total Score: 1 11/09/19 24 11:34 AM EST documented as of this encounter Care Teams Tablet Tester Relationship Specialty Start Date End Date López Alicea MD [address] [place] [address] PCP - General 07/16/15 documented as of this encounter
--- OUTSIDE RECORDS SUMMARY | 2025-09-28 08:26 | XMS_ITS | Encounter Summary ---
Author Organization Healthcare Address [address] [place] [address] Care Team Providers Care Regional Company Truck Driver Name Role Phone López Alicea MD Primary Care Provider [phone] Teresita Garcia LPN Unavailable Unavailabl e Slade Lennon Unavailable Teresita Garcia LPN Unavailable Unavailabl e Encounter Details Date Type Department Care Team (Late st Contact Info) Description 11/01/2024 Orders Only External Location [address] [place] [address] Provider, External Social History Tobacco Use Types [...] filedocumented in this encounter Care Teams Regional Company Truck Driver Relationship Specialty Start Date End Date López Alicea MD [facility] [address] PCP - General 02/24/25 Teresita Garcia LPN [facility] None TCM Nurse 03/04/25 04/03/25 [place] [address] Referring Physician Gastroenterology 03/19/25 Teresita Garcia LPN [facility] None TCM Nurse 04/28/25 05/28/25 documented as of this encounter
--- OUTSIDE RECORDS SUMMARY | 2025-09-28 08:26 | XMS_ITS | Encounter Summary ---
Author Organization Healthcare Address [address] [place] [address] Care Team Providers Care Core Paster Name Role Phone López Alicea MD Primary Care Provider [phone] Teresita Garcia LPN Unavailable Unavailabl e Slade Lennon Unavailable Teresita Garcia LPN Unavailable Unavailabl e Encounter Details Date Type Department Care Team (Late st Contact Info) Description 06/21/2024 Orders Only External Location [address] [place] [address] Provider, External Social History Tobacco Use Types [...] on filedocumented in this encounter Care Teams Core Paster Relationship Specialty Start Date End Date López Alicea MD [facility] [address] PCP - General 02/24/25 Teresita Garcia LPN [facility] None TCM Nurse 03/04/25 04/03/25 [place] [address] Referring Physician Gastroenterology 03/19/25 Teresita Garcia LPN [facility] None TCM Nurse 04/28/25 05/28/25 documented as of this encounter
--- OUTSIDE RECORDS SUMMARY | 2025-09-28 08:26 | XMS_ITS | Encounter Summary ---
Author Organization Healthcare Address [address] [place] [address] Care Team Providers Care Pot Builder Name Role Phone López Alicea MD Primary Care Provider [phone] Teresita Garcia LPN Unavailable Unavailabl e Slade Lennon Unavailable Teresita Garcia LPN Unavailable Unavailabl e Encounter Details Date Type Department Care Team (Late st Contact Info) Description 11/22/2024 Orders Only External Location [address] [place] [address] Provider, External Social History Tobacco Use Types [...] on filedocumented in this encounter Care Teams Pot Builder Relationship Specialty Start Date End Date López Alicea MD [facility] [address] PCP - General 02/24/25 Teresita Garcia LPN [facility] None TCM Nurse 03/04/25 04/03/25 Slade Lennon [place] [id number] Referring Physician Gastroenterology 03/19/25 Teresita Garcia LPN [facility] None TCM Nurse 04/28/25 05/28/25 documented as of this encounter
--- OUTSIDE RECORDS SUMMARY | 2025-09-28 08:26 | XMS_ITS | Encounter Summary ---
Author Organization Healthcare Address [address] [place] [address] Care Team Providers Care County Attorney Name Role Phone López Alicea MD Primary Care Provider [phone] Teresita Garcia LPN Unavailable Unavailabl e Slade Lennon Unavailable Teresita Garcia LPN Unavailable Unavailabl e Encounter Details Date Type Department Care Team (Late st Contact Info) Description 11/22/2024 Orders Only External Location [address] [place] [address] Provider, External Social History Tobacco Use Types [...] on filedocumented in this encounter Care Teams County Attorney Relationship Specialty Start Date End Date López Alicea MD [facility] [address] PCP - General 02/24/25 Teresita Garcia LPN [facility] None TCM Nurse 03/04/25 04/03/25 Salde Lennon [place] [id number] Referring Physician Gastroenterology 03/19/25 Teresita Garcia LPN [facility] None TCM Nurse 04/28/25 05/28/25 documented as of this encounter
--- OUTSIDE RECORDS SUMMARY | 2025-09-28 08:26 | XMS_ITS | Encounter Summary ---
Author Organization Healthcare Address [address] [place] [address] Care Team Providers Care Physicist Cryogenics Name Role Phone López Alicea MD Primary Care Provider [phone] Teresita Garcia LPN Unavailable Unavailabl e Slade Lennon Unavailable Teresita Garcia LPN Unavailable Unavailabl e Encounter Details Date Type Department Care Team (Late st Contact Info) Description 11/22/2024 Orders Only External Location [address] [place] [address] Provider, External Social History Tobacco Use Types [...] on filedocumented in this encounter Care Teams Physicist Cryogenics Relationship Specialty Start Date End Date López Alicea MD [facility] [address] PCP - General 02/24/25 Teresita Garcia LPN [facility] None TCM Nurse 03/04/25 04/03/25 Slade Lennon PA [id number] Referring Physician Gastroenterology 03/19/25 Teresita Garcia LPN [facility] None TCM Nurse 04/28/25 05/28/25 documented as of this encounter
--- OUTSIDE RECORDS SUMMARY | 2025-09-28 08:26 | XMS_ITS | Encounter Summary ---
Author Organization Healthcare Address [address] [place] [address] Care Team Providers Care Infant Caregiver Name Role Phone López Alicea MD Primary Care Provider [phone] Teresita Garcia LPN Unavailable Unavailabl e Slade Lennon Unavailable Teresita Garcia LPN Unavailable Unavailabl e Encounter Details Date Type Department Care Team (Late st Contact Info) Description 11/22/2024 Orders Only External Location [address] [place] [address] Provider, External Social History Tobacco Use Types [...] on filedocumented in this encounter Care Teams Infant Caregiver Relationship Specialty Start Date End Date López Alicea MD [facility] [address] PCP - General 02/24/25 Teresita Garcia LPN [facility] None TCM Nurse 03/04/25 04/03/25 Slade Lennon PA [id number] Referring Physician Gastroenterology 03/19/25 Teresita Garcia LPN [facility] None TCM Nurse 04/28/25 05/28/25 documented as of this encounter
--- OUTSIDE RECORDS SUMMARY | 2025-09-28 08:26 | XMS_ITS | Encounter Summary ---
Author Organization [facility] Address [address] [place] [address] Care Team Providers Care Facilities Maintenance Technician Name Role Phone López Alicea MD Primary Care Provider [phone] Encounter Details Date Type Department Care Team (Late Contact Info) Description 09/17/2025 Results Follow-Up [facility] MEDICINE [address] [place] [address] López Alicea MD [address] [place] [address] Social History Tobacco Use Types [...] Description 11/06/2025 2:30 PM EST Office Visit [facility] MED[facility]INE [address] [place] [address] López Alicea MD [address] [place] [address] documented as of this encounter Visit Diagnoses Not on filedocumented in this encounter Additional Health Concerns Assessment Noted Time PHQ-2 Depression Total Score: 1 11/09/19 24 11:34 AM EST documented as of this encounter Care Teams Facilities Maintenance Technician Relationship Specialty Start Date End Date López Alicea MD [address] [place] [address] PCP - General 07/16/15 documented as of this encounter
--- OUTSIDE RECORDS SUMMARY | 2025-09-28 08:26 | XMS_ITS | Encounter Summary ---
Author Organization [facility] Address [address] [place] [address] Care Team Providers Care Switch Engineer Name Role Phone López Alicea MD Primary Care Provider [phone] Encounter Details Date Type Department Care Team (Late Contact Info) Description 09/17/2025 Results Follow-Up [facility] MEDICINE [address] [place] [address] López Alicea MD [address] [place] [address] Social History Tobacco Use Types [...] Description 11/06/2025 2:30 PM EST Office Visit [facility] MEDICINE [address] [place] [address] López Alicea MD [address] [place] [address] documented as of this encounter Visit Diagnoses Not on filedocumented in this encounter Additional Health Concerns Assessment Noted Time PHQ-2 Depression Total Score: 1 11/09/19 24 11:34 AM EST documented as of this encounter Care Teams Switch Engineer Relationship Specialty Start Date End Date López Alicea MD [address] [place] [address] PCP - General 07/16/15 documented as of this encounter
--- OUTSIDE RECORDS SUMMARY | 2025-09-28 08:26 | XMS_ITS | Encounter Summary ---
Author Organization Healthcare Address [address] [place] [address] Care Team Providers Care Life Scientists Name Role Phone López Alicea MD Primary Care Provider [phone] Teresita Garcia LPN Unavailable Unavailabl e Slade Lennon Unavailable Teresita Garcia LPN Unavailable Unavailabl e Encounter Details Date Type Department Care Team (Late st Contact Info) Description 11/01/2024 Orders Only External Location [address] [place] [address] Jerel Stephenson [place] [id number] Social History Tobacco Use Types Packs/Day Years [...] on filedocumented in this encounter Care Teams Life Scientists Relationship Specialty Start Date End Date López Alicea MD [facility] [address] PCP - General 02/24/25 Teresita Garcia LPN [facility] None TCM Nurse 03/04/25 04/03/25 [place] [address] Referring Physician Gastroenterology 03/19/25 Teresita Garcia LPN [facility] None TCM Nurse 04/28/25 05/28/25 documented as of this encounter
--- OUTSIDE RECORDS SUMMARY | 2025-09-28 08:26 | XMS_ITS | Encounter Summary ---
Author Organization Healthcare Address [address] [place] [address] Care Team Providers Care Insulation Blower Name Role Phone López Alicea MD Primary Care Provider [phone] Teresita Garcia LPN Unavailable Unavailabl e Slade Lennon Unavailable Teresita Garcia LPN Unavailable Unavailabl e Encounter Details Date Type Department Care Team (Late st Contact Info) Description 11/01/2024 Orders Only External Location [address] [place] [address] Provider, External Social History Tobacco Use Types [...] on filedocumented in this encounter Care Teams Insulation Blower Relationship Specialty Start Date End Date López Alicea MD [facility] [address] PCP - General 02/24/25 Teresita Garcia LPN [facility] None TCM Nurse 03/04/25 04/03/25 Slade Lennon [place] [id number] Referring Physician Gastroenterology 03/19/25 Teresita Garcia LPN [facility] None TCM Nurse 04/28/25 05/28/25 documented as of this encounter
--- OUTSIDE RECORDS SUMMARY | 2025-09-28 08:26 | XMS_ITS | Encounter Summary ---
Author Organization Healthcare Address [address] [place] [address] Care Team Providers Care Cloth Hand Name Role Phone López Alicea MD Primary Care Provider [phone] Teresita Garcia LPN Unavailable Unavailabl e Slade Lennon Unavailable Teresita Garcia LPN Unavailable Unavailabl e Encounter Details Date Type Department Care Team (Late st Contact Info) Description 11/22/2024 Orders Only External Location [address] [place] [address] Provider, External Social History Tobacco Use Types [...] on filedocumented in this encounter Care Teams Cloth Hand Relationship Specialty Start Date End Date López Alicea MD [facility] [address] PCP - General 02/24/25 Teresita Garcia LPN [facility] None TCM Nurse 03/04/25 04/03/25 Slade Lennon PA [id number] Referring Physician Gastroenterology 03/19/25 Teresita Garcia LPN [facility] None TCM Nurse 04/28/25 05/28/25 documented as of this encounter
--- OUTSIDE RECORDS SUMMARY | 2025-09-28 08:26 | XMS_ITS | Encounter Summary ---
Author Organization Healthcare Address [address] [place] [address] Care Team Providers Care Layout Operator Name Role Phone López Alicea MD Primary Care Provider [phone] Teresita Garcia LPN Unavailable Unavailabl e Slade Lennon Unavailable Teresita Garcia LPN Unavailable Unavailabl e Encounter Details Date Type Department Care Team (Late st Contact Info) Description 02/05/2025 Orders Only External Location [address] [place] [address] Provider, External Social History Tobacco Use Types [...] on filedocumented in this encounter Care Teams Layout Operator Relationship Specialty Start Date End Date López Alicea MD [facility] [address] PCP - General 02/24/25 Teresita Garcia LPN [facility] None TCM Nurse 03/04/25 04/03/25 Slade Lennon PA [id number] Referring Physician Gastroenterology 03/19/25 Teresita Garcia LPN [facility] None TCM Nurse 04/28/25 05/28/25 documented as of this encounter
--- OUTSIDE RECORDS SUMMARY | 2025-09-28 08:26 | XMS_ITS | Encounter Summary ---
Author Organization Healthcare Address [address] [place] [address] Care Team Providers Care Lozenge Maker Helper Name Role Phone López Alicea MD Primary Care Provider [phone] Teresita Garcia LPN Unavailable Unavailabl e Slade Lennon Unavailable Teresita Garcia LPN Unavailable Unavailabl e Encounter Details Date Type Department Care Team (Late st Contact Info) Description 12/06/2024 Orders Only External Location [address] [place] [address] Provider, External Social History Tobacco Use Types [...] on filedocumented in this encounter Care Teams Lozenge Maker Helper Relationship Specialty Start Date End Date López Alicea MD [facility] [address] PCP - General 02/24/25 Teresita Garcia LPN [facility] None TCM Nurse 03/04/25 04/03/25 Slade Lennon PA [id number] Referring Physician Gastroenterology 03/19/25 Teresita Garcia LPN [facility] None TCM Nurse 04/28/25 05/28/25 documented as of this encounter
--- OUTSIDE RECORDS SUMMARY | 2025-09-28 08:26 | XMS_ITS | Encounter Summary ---
Author Organization Healthcare Address [address] [place] [address] Care Team Providers Care Child Advocate Name Role Phone López Alicea MD Primary Care Provider [phone] Teresita Garcia LPN Unavailable Unavailabl e Slade Lennon Unavailable Teresita Garcia LPN Unavailable Unavailabl e Encounter Details Date Type Department Care Team (Late st Contact Info) Description 11/22/2024 Orders Only External Location [address] [place] [address] Provider, External Social History Tobacco Use Types [...] on filedocumented in this encounter Care Teams Child Advocate Relationship Specialty Start Date End Date López Alicea MD [facility] [address] PCP - General 02/24/25 Teresita Garcia LPN [facility] None TCM Nurse 03/04/25 04/03/25 Slade Lennon PA [id number] Referring Physician Gastroenterology 03/19/25 Teresita Garcia LPN [facility] None TCM Nurse 04/28/25 05/28/25 documented as of this encounter
--- OUTSIDE RECORDS SUMMARY | 2025-09-28 08:26 | XMS_ITS | Encounter Summary ---
Author Organization Healthcare Address [address] [place] [address] Care Team Providers Care Leach Runner Name Role Phone López Alicea MD Primary Care Provider [phone] Teresita Garcia LPN Unavailable Unavailabl e Slade Lennon Unavailable Teresita Garcia LPN Unavailable Unavailabl e Encounter Details Date Type Department Care Team (Late st Contact Info) Description 11/22/2024 Orders Only External Location [address] [place] [address] Provider, External Social History Tobacco Use Types [...] on filedocumented in this encounter Care Teams Leach Runner Relationship Specialty Start Date End Date López Alicea MD [facility] [address] PCP - General 02/24/25 Teresita Garcia LPN [facility] None TCM Nurse 03/04/25 04/03/25 Slade Lennon PA [id number] Referring Physician Gastroenterology 03/19/25 Teresita Garcia LPN [facility] None TCM Nurse 04/28/25 05/28/25 documented as of this encounter
--- OUTSIDE RECORDS SUMMARY | 2025-09-28 08:26 | XMS_ITS | Encounter Summary ---
Author Organization Healthcare Address [address] [place] [address] Care Team Providers Care Top Steep Tender Name Role Phone López Alicea MD Primary Care Provider [phone] Teresita Garcia LPN Unavailable Unavailabl e Slade Lennon Unavailable Teresita Garcia LPN Unavailable Unavailabl e Encounter Details Date Type Department Care Team (Late st Contact Info) Description 01/09/2025 Orders Only External Location [address] [place] [address] Provider, External Social History Tobacco Use Types [...] on filedocumented in this encounter Care Teams Top Steep Tender Relationship Specialty Start Date End Date López Alicea MD [facility] [address] PCP - General 02/24/25 Teresita Garcia LPN [facility] None TCM Nurse 03/04/25 04/03/25 Slade Lennon PA [id number] Referring Physician Gastroenterology 03/19/25 Teresita Garcia LPN [facility] None TCM Nurse 04/28/25 05/28/25 documented as of this encounter
--- OUTSIDE RECORDS SUMMARY | 2025-09-28 08:26 | XMS_ITS | Encounter Summary ---
Author Organization [facility] Address [address] [place] [address] Care Team Providers Care Panel Saw Operator Name Role Phone López Alicea MD Primary Care Provider [phone] Encounter Details Date Type Department Care Team (Late Contact Info) Description 09/17/2025 Results Follow-Up [facility] MEDICINE [address] [place] [address] López Alicea MD [address] [place] [address] Social History Tobacco Use Types [...] 2:30 PM EST Office Visit [facility] MEDICINE [address] [place] [address] López Alicea MD [address] [place] [address] documented as of this encounter Visit Diagnoses Not on filedocumented in this encounter Additional Health Concerns Assessment Noted Time PHQ-2 Depression Total Score: 1 11/09/19 24 11:34 AM EST documented as of this encounter Care Teams Panel Saw Operator Relationship Specialty Start Date End Date López Alicea MD [address] [place] [address] PCP - General 07/16/15 documented as of this encounter
--- OUTSIDE RECORDS SUMMARY | 2025-09-28 08:26 | XMS_ITS | Clinical Summary ---
Author Organization [facility] Address [address] [place] [address] Care Team Providers Care Hop Weigher Name Role Phone López Alicea MD Primary Care Provider Allergies Active Allergy Reactions Criticality Noted Date Comments Celecoxib 04/26/2016 Medications Ferrous Sulfate (IRON) 325 (65 FE) MG tablet Take by mouth 2 (two) times a day. 5 Active vitamin E (vitamin E) 400 UNIT capsule Take 1 capsule by mouth Daily. 30 capsule 5 9 Active ondansetron (ZOFRAN) 4 MG tabletIndications: Nausea TAKE 1 TABLET BY MOUTH EVERY 8 HOURS NEEDED FOR NAUSEA/VOMIT ING 30 tablet 1 3 Active carvedilol (COREG) 25 MG tabletIndications: Benign essential hypertension TAKE ONE TABLET BY MOUTH 2 TIMES A DAY WITH MEALS 60 tablet 2 4 Active sucralfate (CARAFATE) 1 GM/10ML suspension A ctive SUMAtriptan (IMITREX) 100 MG tabletIndications: Migraine without aura and without status migrainosus, not intractable TAKE 1/2 TO 1 TABLET BY MOUTH AT ONSET OF HEADACHE, MAY REPEAT DOSE ONCE IN 2 HOURS IF NO RELIEF. 12 tablet 5 Active hydrOXYzine (ATARAX) 50 MG tablet Take 1 tablet by mouth Every 6 (Six) Hours As Needed. Active naloxone (NARCAN) 4 MG/0.1ML nasal sprayIndications:C hronic pain syndrome Call 911. Don't prime. [place] in 1 nostril for overdose. Repeat in 2-3 minutes in other nostril if no or minimal breathing/re sponsiveness . 2 each 5 Active glucose monitor monitoring kitIndications:Typ e 2 diabetes mellitus without complication, without long-term current use of insulin Check blood sugars once daily 1 each 5 Active glucose blood test stripIndications:T ype 2 diabetes mellitus without complication, without long-term current use of insulin Check blood sugars once daily 100 each 5 Active Lancets 30G miscIndications:Ty pe 2 diabetes mellitus without complication, without long-term current use of insulin Check blood sugars once daily 100 each 5 5 Active hydrOXYzine pamoate (VISTARIL) 50 MG capsule TAKE ONE CAPSULE BY MOUTH EVERY 6 HOURS NEEDED FOR ITCHING 45 capsule 5 5 Active promethazine (PHENERGAN) 25 MG tabletIndications: Nausea TAKE 1/2 TO 1 TABLET BY MOUTH EVERY 6 HOURS NEEDED FOR NAUSEA/VOMIT ING 15 tablet 5 Active tiZANidine (ZANAFLEX) 4 MG tabletIndications: Chronic pain syndrome TAKE ONE TABLET BY MOUTH 2 TIMES A DAY NEEDED FOR MUSCLE SPASMS 40 tablet 5 Active amLODIPine (NORVASC) 10 MG tablet TAKE ONE TABLET BY MOUTH ONCE A DAY 30 tablet 5 Active colchicine 0.6 MG tabletIndications: Idiopathic gout, unspecified chronicity, unspecified site TAKE ONE TABLET BY MOUTH ONCE A DAY 30 tablet 5 Active busPIRone (BUSPAR) 10 MG tabletIndications: Anxiety TAKE TWO TABLETS BY MOUTH 2 TIMES A DAY 120 tablet 5 Active allopurinol (ZYLOPRIM) 300 MG tabletIndications: Idiopathic gout, unspecified chronicity, unspecified site TAKE ONE TABLET BY MOUTH EVERY DAY 30 tablet 5 Active sertraline (ZOLOFT) 100 MG tabletIndications: Dysthymia TAKE TWO TABLETS BY MOUTH ONCE A DAY 60 tablet 5 5 Active potassium chloride 10 MEQ CR tabletIndications: Potassium deficiency TAKE 2 TABLETS BY MOUTH EVERY MORNING AND TAKE 1 TABLET EVERY EVENING 90 tablet 1 5 Active furosemide (LASIX) 20 MG tablet TAKE 1 TABLET BY MOUTH ONCE A DAY 30 tablet 2 5 Active spironolactone (ALDACTONE) 50 MG tablet TAKE 1 TABLET BY MOUTH ONCE A DAY 30 tablet 2 5 Active pantoprazole (PROTONIX) 40 MG EC tabletIndications: Gastroesophageal reflux disease with esophagitis TAKE ONE TABLET BY MOUTH ONCE A DAY 30 tablet 5 5 Active tamsulosin (FLOMAX) 0.4 MG capsule 24 hr capsuleIndications :Benign prostatic hyperplasia (BPH) with straining on urination TAKE ONE CAPSULE BY MOUTH EVERY NIGHT 30 capsule 5 5 Active OLANZapine (zyPREXA) 5 MG tabletIndications: Visual hallucination,Bethanie r depressive disorder, recurrent episode, moderate degree TAKE ONE TABLET BY MOUTH AT BEDTIME 30 tablet 5 5 Active buPROPion SR (WELLBUTRIN SR) 150 MG 12 hr tabletIndications: Major depressive disorder, recurrent episode, moderate degree Take 1 tablet by mouth 3 times a day. 90 tablet 2 5 Active gabapentin (NEURONTIN) 800 MG tabletIndications: Chronic pain syndrome,Degenerat ion of intervertebral disc of lumbar region TAKE 1 TABLET BY MOUTH 3 TIMES A DAY 90 tablet 1 5 Active oxyCODONE ER (OxyCONTIN) 40 MG 12 hr tabletIndications: Chronic pain syndrome,Degenerat ion of intervertebral disc of lumbar region Take 1 tablet by mouth Every 12 (Twelve) Hours. 60 tablet 5 Active oxyCODONE (ROXICODONE) 15 MG immediate release tabletIndications: Chronic pain syndrome,Degenerat ion of intervertebral disc of lumbar region,Degeneratio n of intervertebral disc of lumbar region with discogenic back pain and lower extremity pain Take 1 tablet by mouth Every 8 (Eight) Hours As Needed for Moderate Pain. 90 tablet 5 Active oxyCODONE (ROXICODONE) 15 MG immediate release tabletIndications: Chronic pain syndrome,Degenerat ion of intervertebral disc of lumbar region with discogenic back pain and lower extremity pain,Degeneration of intervertebral disc of lumbar region Take 1 tablet by mouth Every 8 (Eight) Hours As Needed for Moderate Pain. 90 tablet 5 025 Discontin ued(Reord er) oxyCODONE ER (OxyCONTIN) 40 MG 12 hr tabletIndications: Chronic pain syndrome,Degenerat ion of intervertebral disc of lumbar region Take 1 tablet by mouth Every 12 (Twelve) Hours. 60 tablet 5 025 Discontin ued(Reord er) Active Problems Problem Noted Date Diagnosed Date Chronic liver failure without hepatic coma 10/31 /2025 Secondary esophageal varices with bleeding 08/01 Bilateral [...] Encounters Date Type Department Care Team Description 09/17/2025 Results Follow-Up [facility] [address] [place], [place] [address] López Alicea MD 09/17/2025 Results Follow-Up [facility] [address] [place], [place] [address] López Alicea MD 09/17/2025 Results Follow-Up [facility] [address] [place] [address] López Alicea MD 09/17/2025 Results Follow-Up [facility] [address] [place] [address] López Alicea MD 09/17/2025 Results Follow-Up [facility] [address] [place] [address] López Alicea MD 09/17/2025 Results Follow-Up [facility] [address] [place] [address] López Alicea MD 09/02/2025 Telephone [facility] [address] [place] [address] López Alicea MD Med Refill 08/19/2025 Refill [facility] [address] [place] [address] López Alicea MD Chronic pain syndrome; Degeneration of intervertebral disc of lumbar region 08/01/2025 2:30 PM EDT Office Visit [facility] [address] [place] [address] López Alicea MD Need for influenza [...] Travel 07/22/2025 Refill [facility] [address] [place] [address] López Alicea MD Benign prostatic hyperplasia (BPH) with straining on urination; Visual hallucination; Major depressive disorder, recurrent episode, moderate degree 07/15/2025 Refill [facility] [address] [place] [address] López Alicea MD Gastroesophageal reflux disease with esophagitis 07/08/2025 Telephone [facility] [address] [place] [address] López Alicea MD Med Refill from Last 3 Months Immunizations Immunization Administration Dates Next Due 31-influenza Vac Quardvalent Preservativ 08/02/2019 COVID-19 (TIFFANIE) 09/03/2021,02/08/2021 COVID-19 (PFIZER) BIVALENT 12+YRS 08/12/2021 Fluzone >6mos 08/01/2025,,07/21/2017,2012 Fluzone [...] Description 11/06/2025 2:30 PM EST Office Visit [facility] [address] [place] [address] López Alicea MD [address] [place] [place], [place] [id number] Health Maintenance Due Date Last Done Comments [...] 10/30/2024 04/29/2024, 0805/2023, 06/02/2022, Additional history exists COLONOSCOPY 07/24/2025 07/24/2015, 05/2015, 10/02/2014 COLORECTAL CANCER SCREENING 07/24/2025 TDAP/TD VACCINES (3 - Td or Tdap) 10/17/2034 025, 10/25/2014 Hepatitis B Completed 12/21/2015, 04/02, 02/17/2015 HEPATITIS C SCREENING Completed 04/25/2025 , 04/25/2025, 02/24/2025, Additional history exists INFLUENZA VACCINE Completed 08/01/2025, , 08/02/2022, Additional history exists Procedures Procedure Name Priority Date/Time Associated Diagnosis Comments SCANNED - LABS 09/16/2025 SCANNED - IMAGING 09/16/2025 SCANNED - IMAGING 09/16/2025 SCANNED - IMAGING 09/16/2025 SCANNED - IMAGING 09/16/2025 SCANNED - IMAGING 09/16/2025 HEMOGLOBIN A1C Routine 04/29/2024 12:45 PM EDT Type 2 diabetes mellitus without complication, without long-term current use of insulin from Last 3 Months or Most Recently Relevant to Health Maintenance Results * IMAGING SCANNED (09/16/2025) Only the most recent of5 resultswithin the time period is included. Anatomical Region Laterality Modality Radiographic Lori ging us López Alicea MD IMG DIAGNOSTIC IMAGING ORDERABL ES Final Result * LABS SCANNED (09/16/2025) us López Alicea MD LAB BLOOD ORDERABLES Final Resu lt * (ABNORMAL) Hemoglobin A1c (04/29/2024 12:45 PM EDT) Hemoglobin A1C 4.6(L) 4.8 - 5.6 % [facility] Comment: Prediabetes: 5.7 - 6.4 Diabetes: >6.4 Glycemic control for adults with diabetes: <7.0 Blood 04/29/2024 12:4 5 PM EDT 04/29/2024 Narrative [facility] ([facility]) - 04/30/2024 8:18 AM EDT Performed at: [address] [id number] Insurance Defense Attorney: David Mcduffie PhD, Phone: [phone] Patient Fasting: Y us López Alicea MD LAB BLOOD ORDERABLES Final Resu lt [facility]) [address] [place] [address], [place] [phone] [facility] [address] [place] [address], from Last 3 Months or Most Recently Relevant to Health Maintenance Insurance [place]ICAID [place] [id number] MEDICARE [place] [address] Advance Directives Documents on File Type Date Recorded Patient Composite Mechanic Expl anation LIVING WILL - SCAN 03/04/2022 12:[address] OF 06/25/19 Care Teams Hop Weigher Relationship Specialty Start Date End Date López Alicea MD [address] [place] [address] PCP - General 07/16/15
--- OUTSIDE RECORDS SUMMARY | 2025-09-28 08:26 | XMS_ITS | Encounter Summary ---
Author Organization Healthcare Address [address] [place] [address] Care Team Providers Care Time Study Clerk Name Role Phone López Alicea MD Primary Care Provider [phone] Teresita Garcia LPN Unavailable Unavailabl e Slade Lennon Unavailable Teresita Garcia LPN Unavailable Unavailabl e Encounter Details Date Type Department Care Team (Late st Contact Info) Description 12/20/2024 Orders Only External Location [address] [place] [address] Provider, External Social History Tobacco Use Types [...] on filedocumented in this encounter Care Teams Time Study Clerk Relationship Specialty Start Date End Date López Alicea MD [facility] [address] PCP - General 02/24/25 Teresita Garcia LPN [facility] None TCM Nurse 03/04/25 04/03/25 Slade Lennon [place] [id number] Referring Physician Gastroenterology 03/19/25 Teresita Garcia LPN [facility] None TCM Nurse 04/28/25 05/28/25 documented as of this encounter
--- OUTSIDE RECORDS SUMMARY | 2025-09-28 08:26 | XMS_ITS | Clinical Summary ---
Author Organization [facility] Address [address] [place] [address] Care Team Providers Care Barrel Drum Cutter Name Role Phone López Alicea MD Primary Care Provider [phone] Slade Lennon Unavailable Allergies No known active allergies Medications OxyCONTIN 40 MG 12 hr tablet Take 1 tablet by mouth 2 times a day. 05/12/2015 Active allopurinol (Zyloprim) 300 MG tablet Take [...] times a day. 180 capsule 1 04/27/2025 Active spironolactone (Aldactone) 50 MG tablet Take 1 tablet by mouth daily. 30 each 1 04/28/2025 Active amLODIPine (Norvasc) 10 MG tablet Take 1 tablet by mouth daily. Active oxyCODONE-aceta minophen (Percocet) 10-325 MG tablet 1 tablet every 8 hours as needed for severe pain. Active furosemide (Lasix) 20 MG tablet Take 1 tablet by mouth daily. 30 tablet 1 04/27/2025 Active Active Problems Problem Noted Date Diagnosed [...] any time in the past 12 m [facility], were you homeless or living in a assisted (including now)? No 02/27/2025 Utilities Answer Date [...] A1C 10/27/2024, 05/09/2023, 06/02/2022, Additional history exists [id number] Vaccine ( season) 2025 08/02/2022, 09/03/2021, 02/08/2021 [facility]-Influenza Vaccine (#1) 06/02/202507/30, 08/02/2022, 07/25/2022, Additional history exists [facility]- SDOH Screenings 08/30/2025 [facility]-Adult SDOH Screenings 08/30/2025 02/27/2025 [facility]-Depression Screening 04/25/2026 04/25/2025, 0701/2025 [facility]-DTaP,Tdap,and Td Vaccines (3 - Td or [...] Care Plan Autogenerated Problem No Angelina Lorenzo development administrator Procedure Name Priority Date/Time Associated Diagnosis Comments [...] Antibody Negative Negative 04/25/2025 8:02 AM EDT [facility] Blood Venous blood specimen / Unknown Venipuncture / Unknown 04/25/2025 7:06 AM EDT 04/25/2025 7:21 AM EDT us Norman Rodney MD LAB BLOOD ORDERABLES Final Resul t [facility] [address] [place] [address] * ED HIV 1/2 Antibody/Antigen Screen w/Reflex to HIV 1/2 Differentiation (02/24/2025 6:44 PM EDT) HIV 1 & 2 Antibody/Antigen Screen Non Reactive Non Reactive 02/24/2025 7:37 PM EDT [facility] Comment:Screening for HIV 1 & 2 antibodies, and P24 antigen is NONREACTIVE. No confirmatory testing is required. Blood Venous blood specimen / Unknown Venipuncture / Unknown 02/24/2025 6:44 PM EDT 02/24/2025 6:56 PM EDT us Lukas Moreira MD LAB BLOOD ORDERABLES Final Res ult [facility] [address] [place] [address] from Last 3 Months or Most Recently Relevant to Health Maintenance Additional Health Concerns Active Problems Noted Date Diagnosed Date Autogenerated Problem 02/26/2025 Autogenerated Problem 04/25/2025 Insurance [place] [facility] MEDICARE ADVANTAGE [place] [employer] [place] [address] Advance Directives * Full Code (Latest Code [...] updated to appropriate status: Yes Care Teams Barrel Drum Cutter Relationship Specialty Start Date End Date López Alicea MD [facility] [address] PCP - General 02/24/25 [place] [address] Referring Physician Gastroenterology 03/19/25
--- OUTSIDE RECORDS SUMMARY | 2025-09-28 08:26 | XMS_ITS | Encounter Summary ---
Author Organization [facility] Address [address] [place] [address] Care Team Providers Care Phys Ther Name Role Phone López Alicea MD Primary Care Provider [phone] Encounter Details Date Type Department Care Team (Late Contact Info) Description 09/17/2025 Results Follow-Up [facility] [address] [place] [address] López Alicea MD [address] [place] [address] Social History Tobacco Use Types [...] Description 11/06/2025 2:30 PM EST Office Visit [facility] [address] [place] [address] López Alicea MD [address] [place] [address] documented as of this encounter Visit Diagnoses Not on filedocumented in this encounter Additional Health Concerns Assessment Noted Time PHQ-2 Depression Total Score: 1 11/09/19 24 11:34 AM EST documented as of this encounter Care Teams Phys Ther Relationship Specialty Start Date End Date López Alicea MD [address] [place] [address] PCP - General 07/16/15 documented as of this encounter
--- OUTSIDE RECORDS SUMMARY | 2025-09-28 08:27 | XMS_ITS | Encounter Summary ---
Author Organization [facility] Address [address] [place] [address] Care Team Providers Care Corset Fitter Name Role Phone López Alicea MD Primary Care Provider [phone] Reason for Visit * Reason Onset Date Comments Med Refill ED - Called Back For Treatment Only 07/22/2025 Encounter Details Date Type Department Care Team (Late st Contact Info) Description 07/22/2025 Refill [facility] [address] [place] [address] López Alicea MD [address] [place] [address] Benign prostatic hyperplasia (BPH) with [...] Hendrickson Relationship: Self Best call back number: [phone] Requested Prescriptions: Requested Prescriptions Pending Prescriptions Disp [...] tablet Pharmacy where request should be sent: [facility] - [place], [place] - [address] - [phone] - [phone] FX Last office visit with prescribing clinician: [...] 2:30 PM EST Office Visit [facility] [address] [place] [id number] López Alicea MD [address] [place] [address] documented as of this encounter Visit Diagnoses Diagnosis Benign prostatic hyperplasia (BPH) with straining on urination Visual hallucination Psychophysical visual disturbances Major depressive disorder, recurrent episode, moderate degree Major depressive disorder, recurrent episode, moderate documented in this encounter Additional Health Concerns Assessment Noted Time PHQ-2 Depression Total Score: 1 11/09/19 24 11:34 AM EST documented as of this encounter Care Teams Corset Fitter Relationship Specialty Start Date End Date López Alicea MD [address] [place] [address] PCP - General 07/16/15 documented as of this encounter
--- OUTSIDE RECORDS SUMMARY | 2025-09-28 08:27 | XMS_ITS | Encounter Summary ---
Author Organization [facility] Address [address] [place] [address] Care Team Providers Care Cloud Developer Name Role Phone López Alicea MD Primary Care Provider [phone] Encounter Details Date Type Department Care Team (Late Contact Info) Description 02/12/2025 Results Follow-Up [facility] [address] [place] [address] Yumiko Lynch PA-C [address] [place] [address] Social History Tobacco Use Types [...] Description 11/06/2025 2:30 PM EST Office Visit [facility] [address] [place] [address] López Alicea MD [address] [place] [address] documented as of this encounter Visit Diagnoses Diagnosis Potassium deficiency- Primary Hypopotassemia documented in this encounter Additional Health Concerns Assessment Noted Time PHQ-2 Depression Total Score: 1 11/09/19 24 11:34 AM EST documented as of this encounter Care Teams Cloud Developer Relationship Specialty Start Date End Date López Alicea MD [address] [place] [address] PCP - General 07/16/15 documented as of this encounter
--- OUTSIDE RECORDS SUMMARY | 2025-09-28 08:27 | XMS_ITS | Encounter Summary ---
Author Organization [facility] Address [address] [place] [address] Care Team Providers Care Standards Engineer Name Role Phone López Alicea MD Primary Care Provider [phone] Reason for Visit * Reason Comments Med Refill Encounter Details Date Type Department Care Team (Late st Contact Info) Description 08/19/[address] [facility] [address] [place] [address] López Alicea MD [address] [place] [address] Chronic pain syndrome; Degeneration of [...] PM EST Office Visit [facility] [address] [place] [address] López Alicea MD [address] [place] [address] documented as of this encounter Visit Diagnoses Diagnosis Chronic pain syndrome Degeneration of intervertebral disc of lumbar region documented in this encounter Additional Health Concerns Assessment Noted Time PHQ-2 Depression Total Score: 1 11/09/19 24 11:34 AM EST documented as of this encounter Care Teams Standards Engineer Relationship Specialty Start Date End Date López Alicea MD [address] [place] [address] PCP - General 07/16/15 documented as of this encounter
--- OUTSIDE RECORDS SUMMARY | 2025-09-28 08:27 | XMS_ITS | Encounter Summary ---
Author Organization [facility] Address [address] [place] [address] Care Team Providers Care Systems Software Specialist Name Role Phone López Alicea MD Primary Care Provider [phone] Encounter Details Date Type Department Care Team (Late Contact Info) Description 03/11/2025 Results Follow-Up [facility] [address] [place] [address] López Alicea MD [address] [place] [place] [address] Social History Tobacco Use Types [...] [facility] [address] [place] [address] López Alicea MD [address] [place] [place] [address] documented as of this encounter Visit Diagnoses Diagnosis Potassium deficiency Hypopotassemia documented in this encounter Additional Health Concerns Assessment Noted Time PHQ-2 Depression Total Score: 1 11/09/19 24 11:34 AM EST documented as of this encounter Care Teams Systems Software Specialist Relationship Specialty Start Date End Date López Alicea MD [address] [place] [address] PCP - General 07/16/15 documented as of this encounter
--- OUTSIDE RECORDS SUMMARY | 2025-09-28 08:27 | XMS_ITS | Encounter Summary ---
Author Organization [facility] Address [address] [place] [address] Care Team Providers Care Store Warehouse Associate Name Role Phone López Alicea MD Primary Care Provider [phone] Reason for Visit * Reason Comments Med Refill Encounter Details Date Type Department Care Team (Late st Contact Info) Description 03/06/2025 Refill [facility] [address] [place] [address] Fito Garay MD [address] [facility] [place] [address] Chronic pain syndrome; Degeneration of [...] Description 11/06/2025 2:30 PM EST Office Visit [facility] [address] [facility] [place] [address] López Alicea MD [address] [place] [address] documented as of this encounter Visit Diagnoses Diagnosis Chronic pain syndrome Degeneration of intervertebral disc of lumbar region documented in this encounter Additional Health Concerns Assessment Noted Time PHQ-2 Depression Total Score: 1 11/09/19 24 11:34 AM EST documented as of this encounter Care Teams Store Warehouse Associate Relationship Specialty Start Date End Date López Alicea MD [address] [facility] [place] [address] PCP - General 07/16/15 documented as of this encounter
--- OUTSIDE RECORDS SUMMARY | 2025-09-28 08:27 | XMS_ITS | Encounter Summary ---
Author Organization Healthcare Address [address] [place] [address] Care Team Providers Care Online User Experience Strategist Name Role Phone López Alicea MD Primary Care Provider [phone] Teresita Garcia LPN Unavailable Unavailabl e Slade Lennon Unavailable Teresita Garcia LPN Unavailable Unavailabl e Encounter Details Date Type Department Care Team (Late st Contact Info) Description 10/17/2024 Orders Only External Location [address] [place] [address] Provider, External Social History Tobacco Use Types [...] on filedocumented in this encounter Care Teams Online User Experience Strategist Relationship Specialty Start Date End Date López Alicea MD [facility] [address] PCP - General 02/24/25 Teresita Garcia LPN [facility] None TCM Nurse 03/04/25 04/03/25 Slade Lennon [place] [id number] Referring Physician Gastroenterology 03/19/25 Teresita Garcia LPN [facility] None TCM Nurse 04/28/25 05/28/25 documented as of this encounter
--- OUTSIDE RECORDS SUMMARY | 2025-09-28 08:27 | XMS_ITS | Encounter Summary ---
Author Organization [facility] Address [address] [place] [address] Care Team Providers Care Production Administrator Name Role Phone López Alicea MD Primary Care Provider [phone] Encounter Details Date Type Department Care Team (Late Contact Info) Description 12/23/2024 Results Follow-Up [facility] [address] [place] [address] López Alicea MD [address] [place] [address] Social History Tobacco Use Types [...] [facility] [address] [place] [address] López Alicea MD [address] [place] [address] documented as of this encounter Visit Diagnoses Not on filedocumented in this encounter Additional Health Concerns Assessment Noted Time PHQ-2 Depression Total Score: 1 11/09/19 24 11:34 AM EST documented as of this encounter Care Teams Production Administrator Relationship Specialty Start Date End Date López Alicea MD [address] [place] [address] PCP - General 07/16/15 documented as of this encounter
--- OUTSIDE RECORDS SUMMARY | 2025-09-28 08:27 | XMS_ITS | Encounter Summary ---
Author Organization Healthcare Address [address] [place] [address] Care Team Providers Care Clinical Faculty Name Role Phone López Alicea MD Primary Care Provider [phone] Teresita Garcia LPN Unavailable Unavailabl e Slade Lennon Unavailable Teresita Garcia LPN Unavailable Unavailabl e Encounter Details Date Type Department Care Team (Late st Contact Info) Description 10/17/2024 Orders Only External Location [address] [place] [address] Provider, External Social History Tobacco Use Types [...] on filedocumented in this encounter Care Teams Clinical Faculty Relationship Specialty Start Date End Date López Alicea MD [facility] [address] PCP - General 02/24/25 Teresita Garcia LPN [facility] None TCM Nurse 03/04/25 04/03/25 Slade Lennon PA [id number] Referring Physician Gastroenterology 03/19/25 Teresita Garcia LPN [facility] None TCM Nurse 04/28/25 05/28/25 documented as of this encounter
--- OUTSIDE RECORDS SUMMARY | 2025-09-28 08:27 | XMS_ITS | Encounter Summary ---
Author Organization [facility] Address [address] [place] [address] Care Team Providers Care Model Artists' Name Role Phone López Alicea MD Primary Care Provider [phone] Reason for Visit * Reason Onset Date Comments Med Refill 09/02/2025 Encounter Details Date Type Department Care Team (Late st Contact Info) Description 09/02/2025 Telephone [facility] [address] [place] [address] López Alicea MD [address] [place] [address] Med Refill Social History Tobacco [...] Pain. Pharmacy where request should be sent: [facility] [place] [address] [address] [phone] [facility] [phone] FX Last office visit with prescribing clinician: [...] [facility] [address] [place] [address] López Alicea MD [address] [place] [address] documented as of this encounter Visit Diagnoses Diagnosis Chronic pain syndrome Degeneration of intervertebral disc of lumbar region with discogenic back pain and lower extremity pain documented in this encounter Additional Health Concerns Assessment Noted Time PHQ-2 Depression Total Score: 1 11/09/19 24 11:34 AM EST documented as of this encounter Care Teams Model Artists' Relationship Specialty Start Date End Date López Alicea MD [address] [place] [address] PCP - General 07/16/15 documented as of this encounter
--- OUTSIDE RECORDS SUMMARY | 2025-09-28 08:27 | XMS_ITS | Encounter Summary ---
Author Organization Healthcare Address [address] [place] [address] Care Team Providers Care Naval Aircrewman Name Role Phone López Alicea MD Primary Care Provider [phone] Teresita Garcia LPN Unavailable Unavailabl e Slade Lennon Unavailable Teresita Garcia LPN Unavailable Unavailabl e Encounter Details Date Type Department Care Team (Late st Contact Info) Description 10/17/2024 Orders Only External Location [address] [place] [address] Provider, External Social History Tobacco Use Types [...] on filedocumented in this encounter Care Teams Naval Aircrewman Relationship Specialty Start Date End Date López Alicea MD [facility] [address] PCP - General 02/24/25 Teresita Garcia LPN [facility] None TCM Nurse 03/04/25 04/03/25 Slade Lennon PA [id number] Referring Physician Gastroenterology 03/19/25 Teresita Garcia LPN [facility] None TCM Nurse 04/28/25 05/28/25 documented as of this encounter
--- OUTSIDE RECORDS SUMMARY | 2025-09-28 08:27 | XMS_ITS | Encounter Summary ---
Author Organization [facility] Address [address] [place] [address] Care Team Providers Care Action Installer Name Role Phone López Alicea MD Primary Care Provider [phone] Encounter Details Date Type Department Care Team (Late Contact Info) Description 01/25/2025 Results Follow-Up [facility] [address] [place] [address] López Alicea MD [address] [place] [address] Social History Tobacco Use Types [...] Description 11/06/2025 2:30 PM EST Office Visit [facility] [address] [place] [address] López Alicea MD [address] [place] [address] documented as of this encounter Visit Diagnoses Not on filedocumented in this encounter Additional Health Concerns Assessment Noted Time PHQ-2 Depression Total Score: 1 11/09/19 24 11:34 AM EST documented as of this encounter Care Teams Action Installer Relationship Specialty Start Date End Date López Alicea MD [address] [place] [address] PCP - General 07/16/15 documented as of this encounter
--- OUTSIDE RECORDS SUMMARY | 2025-09-28 08:27 | XMS_ITS | Encounter Summary ---
Author Organization [facility] Address [address] [place] [address] Care Team Providers Care Fixture Builder Name Role Phone López Alicea MD Primary Care Provider Encounter Details Date Type Department Care Team (Late st Contact Info) Description 03/09/2015 External CPT II ACID CHANGER [facility] Social History Tobacco Use [...] Visit [facility] [address] [place] [address] López Alicea MD [address] [place] [place], [place] [id number] documented as of this encounter Visit Diagnoses Not on filedocumented in this encounter Care Teams Fixture Builder Relationship Specialty Start Date End Date López Alicea MD [address] [place] [address] PCP - General 07/16/15 documented as of this encounter
--- OUTSIDE RECORDS SUMMARY | 2025-09-28 08:27 | XMS_ITS | Encounter Summary ---
Author Organization [facility] Address [address] [place] [address] Care Team Providers Care Catering Cook Name Role Phone López Alicea MD Primary Care Provider [phone] Encounter Details Date Type Department Care Team (Late Contact Info) Description 02/21/2025 Results Follow-Up [facility] [address] [place] [address] López Alicea MD [address] [place] [address] Social History Tobacco Use Types [...] Description 11/06/2025 2:30 PM EST Office Visit [facility] [address] [place] [address] López Alicea MD [address] [place] [address] documented as of this encounter Visit Diagnoses Not on filedocumented in this encounter Additional Health Concerns Assessment Noted Time PHQ-2 Depression Total Score: 1 11/09/19 24 11:34 AM EST documented as of this encounter Care Teams Catering Cook Relationship Specialty Start Date End Date López Alicea MD [address] [place] [address] PCP - General 07/16/15 documented as of this encounter
--- OUTSIDE RECORDS SUMMARY | 2025-09-28 08:27 | XMS_ITS | Encounter Summary ---
Author Organization Healthcare Address [address] [place] [address] Care Team Providers Care Fifth Grade Teacher Name Role Phone López Alicea MD Primary Care Provider [phone] Teresita Garcia LPN Unavailable Unavailabl e Slade Lennon Unavailable Teresita Garcia LPN Unavailable Unavailabl e Encounter Details Date Type Department Care Team (Late st Contact Info) Description 09/29/2024 Orders Only External Location [address] [place] [address] Provider, External Social History Tobacco Use Types [...] on filedocumented in this encounter Care Teams Fifth Grade Teacher Relationship Specialty Start Date End Date López Alicea MD [facility] [address] PCP - General 02/24/25 Teresita Garcia LPN [facility] None TCM Nurse 03/04/25 04/03/25 Slade Lennon PA [id number] Referring Physician Gastroenterology 03/19/25 Teresita Garcia LPN [facility] None TCM Nurse 04/28/25 05/28/25 documented as of this encounter
--- OUTSIDE RECORDS SUMMARY | 2025-09-28 08:27 | XMS_ITS | Encounter Summary ---
Author Organization Healthcare Address [address] [place] [address] Care Team Providers Care Audio Video Tech Name Role Phone López Alicea MD Primary Care Provider [phone] Teresita Garcia LPN Unavailable Unavailabl e Slade Lennon Unavailable Teresita Garcia LPN Unavailable Unavailabl e Encounter Details Date Type Department Care Team (Late st Contact Info) Description 10/17/2024 Orders Only External Location [address] [place] [address] Provider, External Social History Tobacco Use Types [...] on filedocumented in this encounter Care Teams Audio Video Tech Relationship Specialty Start Date End Date López Alicea MD [facility] [address] PCP - General 02/24/25 Teresita Garcia LPN [facility] None TCM Nurse 03/04/25 04/03/25 Slade Lennon [place] [id number] Referring Physician Gastroenterology 03/19/25 Teresita Garcia LPN [facility] None TCM Nurse 04/28/25 05/28/25 documented as of this encounter
--- OUTSIDE RECORDS SUMMARY | 2025-09-28 08:27 | XMS_ITS | Encounter Summary ---
Author Organization Healthcare Address [address] [place] [address] Care Team Providers Care Corridor Redevelopment Manager Name Role Phone López Alicea MD Primary Care Provider [phone] Teresita Garcia LPN Unavailable Unavailabl e Slade Lennon Unavailable Teresita Garcia LPN Unavailable Unavailabl e Encounter Details Date Type Department Care Team (Late st Contact Info) Description 11/01/2024 Orders Only External Location [address] [place] [address] Provider, External Social History Tobacco Use Types [...] on filedocumented in this encounter Care Teams Corridor Redevelopment Manager Relationship Specialty Start Date End Date López Alicea MD [facility] [address] PCP - General 02/24/25 Teresita Garcia LPN [facility] None TCM Nurse 03/04/25 04/03/25 Slade Lennon PA [id number] Referring Physician Gastroenterology 03/19/25 Teresita Garcia LPN [facility] None TCM Nurse 04/28/25 05/28/25 documented as of this encounter
--- OUTSIDE RECORDS SUMMARY | 2025-09-28 08:27 | XMS_ITS | Encounter Summary ---
Author Organization [facility] Address [address] [place] [address] Care Team Providers Care Resource Program Teacher Name Role Phone López Alicea MD Primary Care Provider Encounter Details Date Type Department Care Team (Late st Contact Info) Description 08/24/2015 External CPT II PATIENT APPOINTMENT COORDINATOR - [facility] Social History Tobacco Use [...] 2:30 PM EST Office Visit [facility] [address] [place] [address] López Alicea MD [address] [place] [place], [place] [address] documented as of this encounter Visit Diagnoses Not on filedocumented in this encounter Care Teams Resource Program Teacher Relationship Specialty Start Date End Date López Alicea MD [address] [place] [address] PCP - General 07/16/15 documented as of this encounter
--- OUTSIDE RECORDS SUMMARY | 2025-09-28 08:27 | XMS_ITS | Encounter Summary ---
Author Organization Healthcare Address [address] [place] [address] Care Team Providers Care Wardrobe Consultant Name Role Phone López Alicea MD Primary Care Provider [phone] Teresita Garcia LPN Unavailable Unavailabl e Slade Lennon Unavailable Teresita Garcia LPN Unavailable Unavailabl e Encounter Details Date Type Department Care Team (Late st Contact Info) Description 01/16/2024 Orders Only External Location [address] [place] [address] Provider, External Social History Tobacco Use Types [...] on filedocumented in this encounter Care Teams Wardrobe Consultant Relationship Specialty Start Date End Date López Alicea MD [facility] [address] PCP - General 02/24/25 Teresita Garcia LPN [facility] None TCM Nurse 03/04/25 04/03/25 Slade Lennon PA [id number] Referring Physician Gastroenterology 03/19/25 Teresita Garcia LPN [facility] None TCM Nurse 04/28/25 05/28/25 documented as of this encounter
--- OUTSIDE RECORDS SUMMARY | 2025-09-28 08:27 | XMS_ITS | Encounter Summary ---
Author Organization Healthcare Address [address] [place] [address] Care Team Providers Care Umbrella Tipper Name Role Phone López Alicea MD Primary Care Provider [phone] Teresita Garcia LPN Unavailable Unavailabl e Slade Lennon Unavailable Teresita Garcia LPN Unavailable Unavailabl e Encounter Details Date Type Department Care Team (Late st Contact Info) Description 08/26/2024 Orders Only External Location [address] [place] [address] Provider, External Social History Tobacco Use Types [...] on filedocumented in this encounter Care Teams Umbrella Tipper Relationship Specialty Start Date End Date López Alicea MD [facility] [address] PCP - General 02/24/25 Teresita Garcia LPN [facility] None TCM Nurse 03/04/25 04/03/25 [place] [address] Referring Physician Gastroenterology 03/19/25 Teresita Garcia LPN [facility] None TCM Nurse 04/28/25 05/28/25 documented as of this encounter
--- OUTSIDE RECORDS SUMMARY | 2025-09-28 08:27 | XMS_ITS | Clinical Summary ---
Author Organization [facility] Address [address] [place] [address] Care Team Providers Care Nuclear Powerplant Mechanic Helper Name Role Phone Unknown, Attending Provider Primary [...] therelease of HIV test results or diagnoses. [id number] Allergies No known active allergies Medications [...] Tobacco: Never Tobacco Cessation:Counseling Given: Not Answered [facility] Utilities Answer Date Recorded In the past 12 months has e I AND [employer], or water [employer] threatened to shut off services in your [...] any time in the past 12 m [facility], were you homeless or living in a custodial (including now)? No 09/30/2024 Sex and Gender [...] 1960 Diabetes Screening 1960 Hepatitis C Screening ([place]) 1961 Lipid Panel 1961 Depression Screening 12/28/1979 [...] - 33 mmol/L 10/02/2024 5:05 AM EST [facility] Anion Gap 4 3 - 16 mmol/L 10/02/2024 5:05 AM EST [facility]ALTH LAB BUN 20 7 - 25 mg/dL 10/02/2024 5:05 AM EST [facility] Creatinine 1.13 0.60 - 1.30 mg/dL 10/02/2024 5:05 AM EST [facility] Glucose 79 70 - 100 mg/dL 10/02/2024 5:05 AM EST [facility] Calcium 8.2(L) 8.6 - 10.3 mg/dL 10/02/2024 5:05 AM EST [facility] Phosphorus 3.2 2.1 - 4.7 mg/dL 10/02/2024 5:05 AM EST [facility] Albumin 3.0(L) 3.5 - 5.7 g/dL 10/02/2024 5:05 AM EST [facility] Osmolality, Calculated 292 278 - 305 mOsm/kg 10/02/2024 5:05 AM EST [facility] EGFR 73 10/02/2024 5:05 AM EST [facility] Comment:As of 2021, the estimated GFR [...] MD LAB BLOOD ORDERABLES Final Res ult [facility] [address] [id number] * HIV 1+2 Antibody/Antigen with Reflex (09/30/2024 5:37 PM EST) HIV 1+2 AB/AGN Nonreactive Nonreactive 09/30/2024 8:51 PM EST [facility] Serum 09/30/2024 5:37 PM EST 09/30/2024 5:45 PM EST Narrative [facility] - 09/30/2024 8:51 PM EST HIV-1 p24 Antigen and HIV-1/HIV-2 Antibody not detected. us Cheryle DUDLEY LAB BLOOD ORDERABLES Final Result [facility] [address] [place] [address], [facility] from Last 3 Months or Most Recently Relevant to Health Maintenance Insurance [facility] MEDICARE PPO COMP [place]ICAID [place] [address] [place] [id number] [employer] MEDICARE PPO COMP [place] Advance Directives For more information, please contact: [phone] * DNRCC-A (Latest Code Status on File) Date Activated Date Inactivated Comments 09/30/2024 12:48 AM 10/03/2024 7:08 PM Care Teams Nuclear Powerplant Mechanic Helper Relationship Specialty Start Date End Date Unknown, Attending Provider PCP - General 09/29/24
--- OUTSIDE RECORDS SUMMARY | 2025-09-28 08:27 | XMS_ITS | Encounter Summary ---
Author Organization [facility] Address [address] [place] [address] Care Team Providers Care Claims Representative Name Role Phone López Alicea MD Primary [...] EST Office Visit [facility] [address] [place] [address] López Alicea MD [address] [place] [address] documented as of this encounter Visit Diagnoses Not on filedocumented in this encounter Additional Health Concerns Assessment Noted Time PHQ-2 Depression Total Score: 1 11/09/19 24 11:34 AM EST documented as of this encounter Care Teams Claims Representative Relationship Specialty Start Date End Date López Alicea MD [address] [place] [address] PCP - General 07/16/15 documented as of this encounter
--- OUTSIDE RECORDS SUMMARY | 2025-09-28 08:27 | XMS_ITS | Encounter Summary ---
Author Organization Healthcare Address [address] [place] [address] Care Team Providers Care Affirmative Action Officer Name Role Phone López Alicea MD Primary Care Provider [phone] Teresita Garcia LPN Unavailable Unavailabl e Slade Lennon Unavailable Teresita Garcia LPN Unavailable Unavailabl e Encounter Details Date Type Department Care Team (Late st Contact Info) Description 01/17/2024 Orders Only External Location [address] [place] [address] Provider, External Social History Tobacco Use Types [...] on filedocumented in this encounter Care Teams Affirmative Action Officer Relationship Specialty Start Date End Date López Alicea MD [facility] [address] PCP - General 02/24/25 Teresita Garcia LPN [facility] None TCM Nurse 03/04/25 04/03/25 [place] [address] Referring Physician Gastroenterology 03/19/25 Teresita Garcia LPN [facility] None TCM Nurse 04/28/25 05/28/25 documented as of this encounter
--- OUTSIDE RECORDS SUMMARY | 2025-09-28 08:27 | XMS_ITS | Encounter Summary ---
Author Organization Healthcare Address [address] [place] [address] Care Team Providers Care Clinical Outcomes Manager Name Role Phone López Alicea MD Primary Care Provider [phone] Teresita Garcia LPN Unavailable Unavailabl e Slade Lennon Unavailable Teresita Garcia LPN Unavailable Unavailabl e Encounter Details Date Type Department Care Team (Late st Contact Info) Description 10/17/2024 Orders Only External Location [address] [place] [address] Provider, External Social History Tobacco Use Types [...] filedocumented in this encounter Care Teams Clinical Outcomes Manager Relationship Specialty Start Date End Date López Alicea MD [facility] [address] PCP - General 02/24/25 Teresita Garcia LPN [facility] None TCM Nurse 03/04/25 04/03/25 Slade Lennon PA [id number] Referring Physician Gastroenterology 03/19/25 Teresita Garcia LPN [facility] None TCM Nurse 04/28/25 05/28/25 documented as of this encounter
--- OUTSIDE RECORDS SUMMARY | 2025-09-28 08:27 | XMS_ITS | Encounter Summary ---
Author Organization Healthcare Address [address] [place] [address] Care Team Providers Care Director Print Name Role Phone López Alicea MD Primary Care Provider [phone] Teresita Garcia LPN Unavailable Unavailabl e Slade Lennon Unavailable Teresita Garcia LPN Unavailable Unavailabl e Encounter Details Date Type Department Care Team (Late st Contact Info) Description 10/17/2024 Orders Only External Location [address] [place] [address] Provider, External Social History Tobacco Use Types [...] filedocumented in this encounter Care Teams Director Print Relationship Specialty Start Date End Date López Alicea MD [facility] [id number] PCP - General 02/24/25 Teresita Garcia LPN [facility] None TCM Nurse 03/04/25 04/03/25 Slade Lennon PA [id number] Referring Physician Gastroenterology 03/19/25 Teresita Garcia LPN [facility] None TCM Nurse 04/28/25 05/28/25 documented as of this encounter
--- OUTSIDE RECORDS SUMMARY | 2025-09-28 08:27 | XMS_ITS | Encounter Summary ---
Author Organization Healthcare Address [address] [place] [address] Care Team Providers Care Tennis Player Name Role Phone López Alicea MD Primary Care Provider [phone] Teresita Garcia LPN Unavailable Unavailabl e Slade Lennon Unavailable Teresita Garcia LPN Unavailable Unavailabl e Encounter Details Date Type Department Care Team (Late st Contact Info) Description 01/16/2024 Orders Only External Location [address] [place] [address] Provider, External Social History Tobacco Use Types [...] on filedocumented in this encounter Care Teams Tennis Player Relationship Specialty Start Date End Date López Alicea MD [facility] [address] PCP - General 02/24/25 Teresita Garcia LPN [facility] None TCM Nurse 03/04/25 04/03/25 Slade Lennon PA [id number] Referring Physician Gastroenterology 03/19/25 Teresita Garcia LPN [facility] None TCM Nurse 04/28/25 05/28/25 documented as of this encounter
--- NOTE | 2025-09-28 08:32 | CT_ITS ---
PROCEDURE INFORMATION: Exam: CT Lumbar Spine Without Contrast Exam date and time: 09/28/2025 9:52 AM Age: 64 years old Clinical indication: Injury or trauma; Additional info: Fall, cirrhosis, midline tenderness TECHNIQUE: Imaging protocol: Computed tomography of the lumbar spine without contrast. Radiation optimization: All CT scans at this facility use at least one of these dose optimization techniques: automated exposure control; mA and/or kV adjustment per patient size (includes targeted exams where dose is matched to clinical indication); or iterative reconstruction. COMPARISON: CT LUMBAR SPINE WO CON 09/16/2025 3:01 AM FINDINGS: Bones/joints: Mildly displaced fracture of the tip of the left 2nd transverse process. L1-L2: No significant disc bulge or herniation. No severe spinal canal stenosis. No significant neural foraminal narrowing. L2-L3: No significant disc bulge or herniation. No severe spinal canal stenosis. No significant neural foraminal narrowing. L3-L4: No significant disc bulge or herniation. No severe spinal canal stenosis. No significant neural foraminal narrowing. L4-L5: No significant disc bulge or herniation. No severe spinal canal stenosis. No significant neural foraminal narrowing. L5-S1: No significant disc bulge or herniation. No severe spinal canal stenosis. No significant neural foraminal narrowing. Soft tissues: Unremarkable. IMPRESSION: Mildly displaced fracture of the tip of the left 2nd transverse process. No evidence of any other acute abnormality.
--- NOTE | 2025-09-28 08:32 | CT_ITS ---
PROCEDURE INFORMATION: Exam: CT Thoracic Spine Without Contrast Exam date and time: 09/28/2025 9:49 AM Age: 64 years old Clinical indication: Injury or trauma; Additional info: Fall, cirrhosis, midline tenderness TECHNIQUE: Imaging protocol: Computed tomography of the thoracic spine without contrast. Radiation optimization: All CT scans at this facility use at least one of these dose optimization techniques: automated exposure control; mA and/or kV adjustment per patient size (includes targeted exams where dose is matched to clinical indication); or iterative reconstruction. COMPARISON: CT THORACIC SPINE WO CON 09/16/2025 2:58 AM FINDINGS: Bones/joints: No acute fracture. Normal alignment. No significant disc bulge or herniation. No severe spinal canal stenosis. No significant neural foraminal narrowing. Lungs: Mild patchy opacities in both lung bases likely represent atelectasis or infection. Soft tissues: Unremarkable. IMPRESSION: No acute findings. Mild patchy opacities in both lung bases likely represent atelectasis or infection.
--- NOTE | 2025-09-28 08:32 | CT_ITS ---
PROCEDURE INFORMATION: Exam: CT Cervical Spine Without Contrast Exam date and time: 09/28/2025 9:48 AM Age: 64 years old Clinical indication: Injury or trauma; Additional info: Fall, cirrhosis, posterior pain TECHNIQUE: Imaging protocol: Computed tomography of the cervical spine without contrast. Radiation optimization: All CT scans at this facility use at least one of these dose optimization techniques: automated exposure control; mA and/or kV adjustment per patient size (includes targeted exams where dose is matched to clinical indication); or iterative reconstruction. COMPARISON: CT CERVICAL SPINE WO CON 09/16/2025 2:56 AM FINDINGS: Limitations: Breathing is noted on these images limiting the interpretation. Bones: A right convex spinal curve is observed.The spine demonstrates moderate degenerative changes at multiple levels. There is multilevel foraminal compromise. There is no evidence of an acute fracture. The spine demonstrates moderate degenerative changes at multiple levels. Lungs: Patchy density mosaic lung pattern suggests small airways disease. Thyroid: The thyroid appears normal. Soft tissues: Unremarkable. IMPRESSION: 1. A right convex spinal curve is observed.The spine demonstrates moderate degenerative changes at multiple levels. There is multilevel foraminal compromise. 2. There is no evidence of an acute fracture.
--- NOTE | 2025-09-28 08:32 | CT_ITS ---
PROCEDURE INFORMATION: Exam: CTA Chest With Contrast Exam date and time: 09/28/2025 9:54 AM Age: 64 years old Clinical indication: Injury or trauma; Additional info: Fall, cirrhosis, diffuse posterior pain TECHNIQUE: Imaging protocol: Computed tomographic angiography of the chest with contrast. Exam focused on the arteries. 3D rendering (Not supervised by radiologist): MIP and/or 3D reconstructed images were created by the technologist. Radiation optimization: All CT scans at this facility use at least one of these dose optimization techniques: automated exposure control; mA and/or kV adjustment per patient size (includes targeted exams where dose is matched to clinical indication); or iterative reconstruction. Contrast material: ISOVUE; Contrast volume: 80 ml; Contrast route: INTRAVENOUS (IV); COMPARISON: CT ANGIO CHEST 09/16/2025 3:04 AM FINDINGS: Pulmonary arteries: Contrast within the main pulmonary arteries port 180 Hounsfield units. No central PE. Motion, artifact from patient's arms as well as slice thickness of 3.75 mm makes evaluation for more peripheral PE not possible. Aorta: Poor contrast in the aorta with Hounsfield units of 157. No aortic aneurysm. No aortic dissection. Lungs: Unremarkable. No consolidation. No masses. Pleural spaces: Unremarkable. No pneumothorax. No pleural effusion. Heart: Unremarkable. No cardiomegaly. No pericardial effusion. Lymph nodes: Unremarkable. No enlarged lymph nodes. Diaphragm: Elevated right hemidiaphragm, unchanged. Intraperitoneal space: The abdomen and pelvis were discussed in the separate examination. Bones/joints: Unremarkable. No acute fracture. Soft tissues: Unremarkable. IMPRESSION: No acute findings. However, limited pulmonary embolism as well as limited aortic evaluation.
--- NOTE | 2025-09-28 08:32 | CT_ITS ---
PROCEDURE INFORMATION: Exam: CTA Abdomen and Pelvis With Contrast Exam date and time: 09/28/2025 9:54 AM Age: 64 years old Clinical indication: Injury or trauma; Additional info: Fall, cirrhosis, left leg bruising TECHNIQUE: Imaging protocol: Computed tomographic angiography of the abdomen and pelvis with contrast. Exam focused on the arteries. 3D rendering (Not supervised by radiologist): MIP and/or 3D reconstructed images were created by the technologist. Radiation optimization: All CT scans at this facility use at least one of these dose optimization techniques: automated exposure control; mA and/or kV adjustment per patient size (includes targeted exams where dose is matched to clinical indication); or iterative reconstruction. Contrast material: ISOVUE; Contrast volume: 80 ml; Contrast route: INTRAVENOUS (IV); COMPARISON: CT ANGIO ABD/PEL - TRAUMA 09/16/2025 3:04 AM FINDINGS: Aorta: Mild atherosclerotic calcifications affect the aorta and its branches. Celiac and mesenteric arteries: No occlusion or significant stenosis. Renal arteries: No occlusion or significant stenosis. Right iliac arteries: No occlusion or significant stenosis. Left iliac arteries: No occlusion or significant stenosis. Liver: Nodular contours of the liver likely represents cirrhosis. Gallbladder and biliary ducts: Cholecystectomy clips are seen. Pancreas: Unremarkable. No mass. No ductal dilation. Spleen: Severe splenomegaly measuring 20 cm. Adrenal glands: Unremarkable. No mass. Kidneys and ureters: Nonobstructing stone measuring 2.5 mm seen in the lower pole of the left kidney. Stomach and bowel: Mild wall thickening involving the ascending colon and hepatic flexure likely represents colitis. Mildly dilated small bowel loops may represent enteritis Appendix: No evidence of appendicitis. Intraperitoneal space: No evidence of free air in the abdomen. Lymph nodes: Unremarkable. No enlarged lymph nodes. Urinary bladder: Unremarkable. No mass. Reproductive: Unremarkable as visualized. Bones/joints: No acute fracture. Soft tissues: Fluid filled right inguinal hernia. IMPRESSION: 1. No acute findings. 2. Nodular contours of the liver likely represents cirrhosis. 3. Moderate splenomegaly likely represents portal hypertension. 4. Nonobstructing stone measuring 2.5 mm seen in the lower pole of the left kidney. 5. Mildly dilated small bowel loops may represent enteritis.
--- NOTE | 2025-09-28 08:32 | CT_ITS ---
PROCEDURE INFORMATION: Exam: CT Head Without Contrast Exam date and time: 09/28/2025 9:46 AM Age: 64 years old Clinical indication: Injury or trauma; Additional info: Fall, cirrhosis, posterior head pain TECHNIQUE: Imaging protocol: Computed tomography of the head without contrast. Radiation optimization: All CT scans at this facility use at least one of these dose optimization techniques: automated exposure control; mA and/or kV adjustment per patient size (includes targeted exams where dose is matched to clinical indication); or iterative reconstruction. COMPARISON: CT HEAD/BRAIN WO CON 09/16/2025 2:54 AM FINDINGS: Brain: There is moderate atrophy and chronic white matter microangiopathic changes. Cerebral ventricles: There is compensatory ventricular dilation. Paranasal sinuses: Visualized sinuses are unremarkable. No fluid levels. Mastoid air cells: Visualized mastoid air cells are well aerated. Bones: There is no evidence of an acute fracture. Soft tissues: No scalp injury is identified.There is no evidence of a radio-opaque foreign body. IMPRESSION: 1. There is no evidence of an acute fracture. 2. No acute intracranial process is identified. 3. No scalp injury is identified.There is no evidence of a radio-opaque foreign body.
--- NOTE | 2025-09-28 08:38 | [facility].EDGENADL ---
Discharge Plan Disposition Patient Disposition: Home, Self-Care Prescriptions Prescriptions: No Action hydroxyzine pamoate 50 mg capsule 50 mg PO Q6H PRN Patient Comments: TAKE ONE CAPSULE BY MOUTH EVERY 6 HOURS NEEDED FOR ITCHING sumatriptan succinate 100 mg tablet 100 mg PO ONCE PRN sertraline [Zoloft] 100 MG tablet 200 mg PO DAILY pantoprazole 40 MG tablet,delayed release (DR/EC) 40 mg PO DAILY colchicine [Colcrys] 0.6 MG tablet 0.6 mg PO DAILY tizanidine [Zanaflex] 4 MG capsule 4 mg PO BIDP PRN (Reason: Muscle Spasm) amlodipine [Norvasc] 10 MG tablet 10 mg PO DAILY allopurinol 300 MG tablet 300 mg PO DAILY bupropion HCl 150 mg tablet sustained-release 12 hr 150 mg PO DAILY Patient Comments: TAKE ONE TABLET BY MOUTH 3 TIMES A DAY olanzapine 5 mg tablet 5 mg PO HS Patient Comments: TAKE ONE TABLET BY MOUTH AT BEDTIME oxycodone-acetaminophen 10-325 mg tablet 1 tab PO Q8HP PRN (Reason: Moderate Pain (Scale Score 5-6)) Patient Comments: TAKE 1 TABLET BY MOUTH EVERY 8 HOURS NEEDED FOR MODERATE PAIN tamsulosin 0.4 mg capsule 0.4 mg PO HS Patient Comments: TAKE ONE CAPSULE BY MOUTH EVERY NIGHT gabapentin 800 mg tablet 800 mg PO TID Patient Comments: TAKE ONE TABLET BY MOUTH 3 TIMES A DAY buspirone 10 mg tablet 20 mg PO BID Patient Comments: TAKE TWO TABLETS BY MOUTH 2 TIMES A DAY oxycodone [OxyContin] 40 mg tablet,oral only,ext.rel.12 hr 40 mg PO BID Patient Comments: TAKE 1 TABLET BY MOUTH EVERY TWELVE HOURS spironolactone 100 mg tablet 100 mg PO DAILY 30 Days Qty: 30 0RF furosemide [Lasix] 80 mg tablet 80 mg PO DAILY Qty: 30 0RF Referrals Follow up/Referrals: López Alicea MD [Primary Care Provider, Medical] - See instructions Activity Restrictions/Add. Instructions Additional Instructions/Restrictions: At this time it was felt you are safe to be discharged home. If new or worsening symptoms please do not hesitate to return the emergency department. Today the second part of your lumbar spine has a crack on the edge called the transverse process, it is not one of your vertebrae so it is not a serious problem but will be sore. Please follow-up with your GI doctor tomorrow as discussed and continue to take your chronic pain regimen at home. Clinical Impressions Clinical Impression: Fall, Lumbar transverse process fracture, Cirrhosis Print Language Print Language: Welsh Discharge ED Provider: Dhaval Duvall General Adult HPI General Chief complaint: Fall Stated complaint: fall Time Seen by Provider: 09/28/25 08:22 Mode of Arrival: EMS Source of Information: Patient Description of Symptoms (Recalled from ER Triage Doc. by RN): Patient states that his legs gave out this morning and he fell, hitting the back of his head on the bathroom wall and his right shoulder. Patient states that he has non alcoholic cirrhosis of the liver, sees Dr. Jones in [place] and has varices and his blood levels get low and this happens when his levels get low. Has appt with Dr. Jones tomorrow. History of Present Illness HPI narrative: Patient is a 64-year-old male with past medical history of Rivera cirrhosis not on lactulose, chronic pain on significant controlled substance regimen who presents emergency department for evaluation of traumatic injury sustained in a fall. Patient was in the bathroom this morning when his legs gave out fell backward striking his head putting a hole in the wall. Unknown loss of consciousness. Patient is complaining of diffuse pain worse in his back. No chest pain reported. No other acute complaints at this time. Please note that above description of symptoms, in this electronic medical record under categorization of recalled from ER triage doctor by RN are reflective of an initial nursing assessment, however, is not reflective of my full history and physical exam that was personally taken and clarified. Consequentially, this preceding description of symptoms, which may include the patient's categorized chief complaint in the EMR, do not reflect my personal clinical impression, and the ultimate description of history of present illness and patient stated complaints should be deferred to this section of the note. Unless stated otherwise or congruent with this section of the note, additional signs, symptoms, or incongruence should be interpreted as inaccurate with my clinical impression. Related Data Home Medications ?Medication ?Instructions ?Recorded ?Confirmed allopurinol 300 mg tablet 300 mg PO DAILY 03/27/18 04/23/25 amlodipine 10 mg tablet (Norvasc) 10 mg PO DAILY 03/27/18 04/23/25 colchicine 0.6 mg tablet (Colcrys) 0.6 mg PO DAILY 03/27/18 04/23/25 pantoprazole 40 mg tablet,delayed 40 mg PO DAILY GERD 03/27/18 04/23/25 release sertraline 100 mg tablet (Zoloft) 200 mg PO DAILY 03/27/18 04/23/25 tizanidine 4 mg capsule (Zanaflex) 4 mg PO BIDP PRN Muscle Spasm 03/27/18 04/23/25 bupropion HCl 150 mg tablet,12 hr 150 mg PO DAILY 01/15/25 04/23/25 sustained-release buspirone 10 mg tablet 20 mg PO BID 01/15/25 04/23/25 gabapentin 800 mg tablet 800 mg PO TID 01/15/25 04/23/25 olanzapine 5 mg tablet 5 mg PO HS 01/15/25 04/23/25 oxycodone 40 mg tablet,crush 40 mg PO BID 01/15/25 04/23/25 resistant,extended release 12 hr (OxyContin) oxycodone-acetaminophen 10 mg-325 1 tab PO Q8HP PRN Moderate Pain 01/15/25 04/23/25 mg tablet (Scale Score 5-6) tamsulosin 0.4 mg capsule 0.4 mg PO HS 01/15/25 04/23/25 hydroxyzine pamoate 50 mg capsule 50 mg PO Q6H PRN 01/17/25 04/23/25 sumatriptan succinate 100 mg tablet 100 mg PO ONCE PRN 01/17/25 04/23/25 Previous Rx's ?Medication ?Instructions ?Recorded furosemide 80 mg tablet (Lasix) 80 mg PO DAILY #30 tabs 01/16/25 spironolactone 100 mg tablet 100 mg PO DAILY 30 days #30 tabs 01/16/25 Allergies Allergy/AdvReac Type Severity Reaction Status Date / Time celecoxib (From Celebrex) Allergy Verified 04/23/25 09:30 [facility] Disclaimer: The information contained in this section may have been updated after the patient was seen, as this information can be updated by other users. Medical History Chronic anemia CKD (chronic kidney disease) Esophageal varices GI (gastrointestinal bleed) History of gastroesophageal reflux (GERD) Cirrhosis Surgical History History of back surgery Family History Other Cancer Social History Smoking Status: Never smoker alcohol intake: never substance use type: denies use current occupational status: disabled Travel in the last 8 weeks?: None Have you lived/traveled outside US in past 30 days?: No Contact w/someone who lives/traveled outside US past 30 days?: No Exposure to someone with infectious disease in past 14 days?: No Do you have a fever (greater than 100.4 F or 38 C)?: No Have you tested positive for COVID-19?: No Exposed to someone with COVID-19 in past 14 days?: No Do you have a sore throat?: No Do you have a cough?: No Do you have any weakness?: No Do you have any diarrhea?: No Are you experiencing any unusual bleeding?: No Do you have any muscle aches/pain?: No Do you have any abdominal pain?: No Are you experiencing loss of taste or smell?: No Other Medical History Have you received the Flu Vaccine for this season: No Have you received the Pneumonia Vaccine: Yes ROS Obtained: Yes Systems reviewed as appropriate & no additional complaints except as documented Physical Exam General General appearance: alert Comment: Chronically ill-appearing Head Head exam: atraumatic and normocephalic Eye Eye exam: Present PERRL and EOMI ENT ENT exam: Present mucous membranes moist Neck Neck exam: Present normal inspection and other (C-collar in place) Chest Chest inspection: Present normal inspection and symmetric chest wall rise Respiratory Respiratory exam: Present normal lung sounds bilaterally; Absent respiratory distress Cardiovascular Cardiovascular exam: Present regular rate and normal rhythm Abdominal Exam Abdominal exam: Present soft and other (Bruise over the left upper); Absent tenderness Extremities Exam Extremities exam: Present normal inspection and tenderness (Right shoulder, no tenderness remainder of extremities) Back Exam Back exam: Present other (Diffuse tenderness) Neurological Exam Neurological exam: Present alert, oriented X3, CN II-XII intact and other (Asterixis BUE, no focal weakness bilateral upper lower extremities) Psychiatric Psychiatric exam: Present normal affect Skin Skin exam: Present warm and dry Medical Decision Making Medical Records Screening: Per USPSTF and CDC recommendations, given the prevalence of disease in our region, it is our hospital?s policy to screen for HIV and viral Hepatitis for all patients aged 18 and over and those with ongoing risk factors. Patricio Inquiry Pt receiving controlled substance: No Vital Signs: 09/28/25 08:26 09/28/25 08:27 09/28/25 08:30 Temperature 98.6 F Temperature Source Oral Pulse Rate 88 91 H Pulse Rate [Right Brachial] 89 Respiratory Rate 15 17 11 L Blood Pressure Blood Pressure [Right Arm] 118/68 Blood Pressure Mean Blood Pressure Mean [Right Arm] 84 Blood Pressure Source [Right Arm] Automatic Cuff Blood Pressure Position [Right Arm] Sitting 02 Sat by Pulse Oximetry 93 L 94 L 95 Oxygen Delivery Method Room Air Room Air Room Air Oxygen Flow Rate (LPM) 09/28/25 08:30 09/28/25 08:45 09/28/25 09:00 Temperature Temperature Source Pulse Rate 82 79 Pulse Rate [Right Brachial] Respiratory Rate 20 16 Blood Pressure 137/70 Blood Pressure [Right Arm] Blood Pressure Mean 92 Blood Pressure Mean [Right Arm] Blood Pressure Source [Right Arm] Blood Pressure Position [Right Arm] 02 Sat by Pulse Oximetry 91 L 84 L Oxygen Delivery Method Room Air Room Air Oxygen Flow Rate (LPM) 0 09/28/25 09:01 09/28/25 09:01 09/28/25 09:09 Temperature Temperature Source Pulse Rate 80 Pulse Rate [Right Brachial] Respiratory Rate 21 Blood Pressure 137/50 L Blood Pressure [Right Arm] Blood Pressure Mean 83 Blood Pressure Mean [Right Arm] Blood Pressure Source [Right Arm] Blood Pressure Position [Right Arm] 02 Sat by Pulse Oximetry 88 L 94 L Oxygen Delivery Method Nasal Cannula Oxygen Flow Rate (LPM) 3 09/28/25 09:31 09/28/25 10:10 09/28/25 10:31 Temperature Temperature Source Pulse Rate 76 74 69 Pulse Rate [Right Brachial] Respiratory Rate 16 Blood Pressure 132/57 L 118/47 L Blood Pressure [Right Arm] Blood Pressure Mean Blood Pressure Mean [Right Arm] Blood Pressure Source [Right Arm] Blood Pressure Position [Right Arm] 02 Sat by Pulse Oximetry 91 L 92 L 91 L Oxygen Delivery Method Nasal Cannula Room Air Oxygen Flow Rate (LPM) 3 09/28/25 11:01 09/28/25 11:15 Temperature Temperature Source Pulse Rate 63 61 Pulse Rate [Right Brachial] Respiratory Rate Blood Pressure 112/48 L Blood Pressure [Right Arm] Blood Pressure Mean Blood Pressure Mean [Right Arm] Blood Pressure Source [Right Arm] Blood Pressure Position [Right Arm] 02 Sat by Pulse Oximetry 92 L 96 Oxygen Delivery Method Room Air Room Air Oxygen Flow Rate (LPM) Lab Data Lab Results 09/28/25 08:22: WBC 3.1 L, RBC 3.44 L, Hgb 7.4 L, Hct 27.2 L, MCV 79.1 L, MCH 21.5 L, MCHC 27.2 L, RDW 19.0 H, Plt Count 91 L, MPV 11.2 H, Neut % (Auto) 65.1, Lymph % (Auto) 24.4, Citrus % (Auto) 6.7, Eos % (Auto) 3.2, Baso % (Auto) 0.3, Neut # (Auto) 2.0, Lymph # (Auto) 0.8, Citrus # (Auto) 0.2, Eos # (Auto) 0.1, Baso # (Auto) 0.0, PT 11.8, INR 1.07, Sodium 139, Potassium 4.1, Chloride 103, Carbon Dioxide 28, Anion Gap 12.1, BUN 21 H, Creatinine 1.60 H, Estimated Creat Clear 50, Estimated GFR 44 L, Est GFR ( Amer) 53 L, Glucose 93, Calcium 8.8, Total Bilirubin 0.7, AST 36, ALT 23, Alkaline Phosphatase 147 H, NT-Pro-B Natriuret Pep 642 H, Total Protein 7.5, Albumin 3.8, Globulin 3.7 H, Albumin/Globulin Ratio 1.0 L 09/28/25 08:39: Ammonia 11 09/28/25 08:22 09/28/25 08:22 Orders (Tests/Meds): ED MEDICATIONS Discontinued Medications Generic Name Dose Route Start Last Admin Trade Name Freq PRN Reason Stop Dose Admin Iopamidol 80 ml 09/28/25 10:13 09/28/25 10:13 Iopamidol-370 (76%);100ml Bottle IV 09/28/25 10:14 80 ml ONCE ONE Administration Ondansetron HCl 4 mg 09/28/25 08:34 09/28/25 08:49 Ondansetron 4mg/2ml Vial IV 09/28/25 08:35 4 mg ONCE ONE Administration Oxycodone HCl 40 mg 09/28/25 08:45 09/28/25 08:50 Oxycodone 40mg Extended Release Tab.Er.12h PO 09/28/25 08:46 40 mg ONCE ONE Administration Sodium Chloride 10 ml 09/28/25 10:13 09/28/25 10:13 Sodium Chloride 0.9% 10ml Syr (Rad Only) IV 09/28/25 10:14 10 ml ONCE ONE Administration Sodium Chloride 50 ml 09/28/25 10:13 09/28/25 10:13 0.9 % Sodium Chloride 50 Ml Vial IV 09/28/25 10:14 50 ml ONCE ONE Administration Tizanidine HCl 4 mg 09/28/25 08:37 09/28/25 08:50 Tizanidine 4mg Tablet PO 09/28/25 08:38 4 mg ONCE ONE Administration ORDERS Category Date Time Status CT angio abd/pel - TRAUMA Stat Cat Scan 09/28/25 08:[address] angio chest - dissection Stat Cat Scan 09/28/25 08:[address] cervical spine wo con Stat Cat Scan 09/28/25 08:[address] head/brain wo con Stat Cat Scan 09/28/25 08:[address] lumbar spine wo con Stat Cat Scan 09/28/25 08:[address] thoracic spine wo con Stat Cat Scan 09/28/25 08:32 Completed POCUS Point of Care (ER Only) Stat Exams 09/28/25 08:47 Completed Shoulder XR right miminum 2 views [XR shoulder RT min Exams 09/28/25 08:40 Completed 2V] Stat Ammonia Stat Lab 09/28/25 08:39 Completed BNP [NT Pro Brain Natriuretic Pep.] Stat Lab 09/28/25 08:22 Completed CBC w/Auto Diff [Complete Blood Count Auto Diff] Stat Lab 09/28/25 08:22 Completed CMP [Comprehensive Metabolic Panel] Stat Lab 09/28/25 08:22 Completed INR [Prothrombin Time INR] Stat Lab 09/28/25 08:22 Completed EKG Request [ECG Request] Stat Y 09/28/25 08:43 Ordered ECG Data Tracing #1: Independently interpreted by me rate is 78, rhythm is regular, no ST elevation in anatomical contiguous leads, QTc 446, stable ST changes in V2 and V3 nothing acute. Medical Decision Narrative: In summary patient is a 64-year-old male with past medical history described above who presents emergency department for evaluation of a fall. Patient is hemodynamically stable and nontoxic-appearing upon arrival, chronically ill-appearing, afebrile. Given patient's history of cirrhosis and diffuse pain full trauma scans will be ordered. Plain film of the right shoulder will be obtained. Hematologic labs and ammonia level will be obtained. Patient is not overtly encephalopathic but does have asterixis bilateral upper extremities and has lost control of his legs twice this month resulting in a fall. EKG will be obtained. Baseline pain control regimen will be administered he is on significant opiate dosing. Initial workup reviewed by me, not transfusable anemia which is chronic, leukopenia which is also chronic, platelets 91, chronic CKD without MARLEN no critical electrolyte abnormality BNP low 600s which is stable. Trauma survey shoulder no acute findings, evidence of cirrhosis and portal hypertension, CT spine left second transverse process fracture, no other acute bony abnormality. Chest no acute abnormality. Upon repeat evaluation patient continued did not have encephalopathy, was saturating on room air was ambulatory with a walker which is his baseline. Transverse process fracture is nonactionable. 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 Procedure: Procedure performed was limited abdominal ultrasound. Procedure performed by Dhaval Duvall. Using the curvilinear probe bilateral lower quadrants were imaged, no pocket of fluid that is amenable for diagnostic paracentesis. Images were saved to a permanent archive and were technically adequate. Patient tolerated the procedure well. Critical Care Critical Care Time Critical Care Time: No
--- NOTE | 2025-09-28 08:40 | XR_ITS ---
PROCEDURE INFORMATION: Exam: XR Right Shoulder Exam date and time: 09/28/2025 10:04 AM Age: 64 years old Clinical indication: Injury or trauma; Fall; Blunt trauma (contusions or hematomas); Shoulder; Right; Additional info: Fall, tender TECHNIQUE: Imaging protocol: Radiologic exam of the right shoulder. Views: 2 or more views. COMPARISON: CT ANGIO CHEST 09/28/2025 9:54 AM FINDINGS: Bones/joints: Normal. Soft tissues: Normal. IMPRESSION: No acute findings.
[2025-09-28 08:45] LABS: Hematocrit 27.2 % (42.0-52.0); Hemoglobin 7.4 g/dL (14.1-18.0); Immature Granulocytes % 0.3 %; Mean Corpuscular HGB Conc 27.2 g/dL (31.8-35.4); Mean Corpuscular Hemoglobin 21.5 pg (27.0-31.2); Mean Corpuscular Volume 79.1 fl (80-94); Nucleated Red Blood Cells % 0 %; Platelet Count 91 K/mm3 (142-424); Red Blood Count 3.44 M/mm3 (4.60-6.20); Red Cell Distribution Width-SD 54.8 fL; White Blood Count 3.1 K/mm3 (4.8-10.8)
[2025-09-28 08:47] LABS: Albumin Level 3.8 g/dl (3.5-5.0); Chloride 103 mmol/L (98-107); Sodium 139 mmol/L (136-145)
[2025-09-28 08:48] LABS: Potassium 4.1 mmoL/L (3.5-5.1)
[2025-09-28] MEDS: ONDANSETRON 4MG/2ML VIAL 4 MG IV (08:49)
[2025-09-28 08:50] LABS: Alanine Aminotransferase 23 U/L (12-78); Alkaline Phosphatase 147 U/L (38-126); Anion Gap 12.1 mEq/L (5-15); Aspartate Amino Transferase 36 U/L (17-59); Bilirubin,Total 0.7 mg/dl (0.2-1.3); Blood Urea Nitrogen 21 mg/dl (9-20); Carbon Dioxide 28 mmol/L (22.0-30.0); Creatinine Clearance Estimated 50 mL/min (50-200); Creatinine,Serum 1.60 mg/dl (0.66-1.25); Estimated Glomerular Filt Rate 44 ml/min (>60); GFR (African American) 53 ML/MIN (>60); INR 1.07 (0.9-1.1); Prothrombin Time 11.8 seconds (10.1-12.5)
[2025-09-28] MEDS: OXYCODONE 40 MG PO (08:50)
[2025-09-28] MEDS: TIZANIDINE 4MG TABLET 4 MG PO (08:50)
[2025-09-28 08:51] LABS: Albumin/Globulin Ratio 1.0 (1.1-1.8); Calcium 8.8 mg/dl (8.4-10.2); Globulin 3.7 g/dL (1.3-3.2); Glucose 93 mg/dl (74-100); Total Protein,Serum 7.5 g/dl (6.3-8.2)
[2025-09-28 08:59] LABS: Ammonia 11 umol/L (9-30)
--- NOTE | 2025-09-28 09:15 | ECG_ITS ---
APPROVED REPORT Exam: Resting ECG HR:78 bpm ECG Measurements Heart Rate 78 AXES KS 209 P 65 QRSd 109 QRS 18 QT 413 T 78 QTc 446 Conclusion SINUS RHYTHM POSSIBLE LATERAL MYOCARDIAL INFARCTION , OF INDETERMINATE AGE [30 ms Q WAVE IN I/aVL/V5/V6] ABNORMAL ECG Electronically signed by : JORDI ALVARADO, 09/30/2025 08:42:57
[2025-09-28] MEDS: IOPAMIDOL-370 (76%);100ML BOTTLE 80 ML IV (10:13)
[2025-09-28] MEDS: SODIUM CHLORIDE 0.9% 10ML SYR (RAD ONLY) 10 ML IV (10:13)
[2025-09-28] MEDS: 0.9 % SODIUM CHLORIDE 50 ML VIAL IV (10:13)
[2025-09-28 10:51] LABS: NT Pro Brain Natriuretic Pep. 642 pg/mL (0-125)
--- NOTE | 2025-09-28 12:11 | PC.NURSE ---
Patient stating that he has no way to get back home. Attempted to call his brother for assistance. No answer. Spoke with Astronomy Professor who states she will see what she can do.
--- NOTE | 2025-09-28 13:31 | PC.NURSE ---
No care a van available to take patient home, attempted to get Erik Mcdowell to take him home and he stated that he could not because the patient had a walker. Spoke with [facility] [employer] who state they cannot take the patient home for liability issues. Spoke with EMS who state they cannot take him home unless he has someone in the house that can sign and take responsibility for the patient. Spoke with patient regarding these updates and he states that his neighbors are all over the age of 80 and would not sign for him. States that he could try to find someone to meet them there but the person is unable to drive. While speaking with patient regarding this matter the family of bed 2 heard the situation and the of the patient states he would be glad to take the patient home. white sugar supervisor notified of situation and MD aware.
== END 2025-09-28 13:46 | disposition home or self-care (01) ==
PROVIDERS: Emergency Provider Emergency Medicine; PCP Family Medicine
DX: S32.028A Other fracture of second lumbar vertebra, initial encounter for closed fracture (principal); K75.81 Nonalcoholic steatohepatitis (NASH); W18.39XA Other fall on same level, initial encounter
CPT/HCPCS: 70450; 71275; 72125; 72128; 72131; 73030; 74174; 80053; 82140; 83880; 85025; 85610; 93005; 96374; 99285; J2405; Q9967